=== PATIENT | female | born 1940 | race American Indian/Alaskan Native ===

== ENCOUNTER 2020-08-18 12:28 | Inpatient (IN) | payer MEDICARE ==
[2020-08-18] MEDS ORDERED: SODIUM CHLORIDE 0.9% 1000 ML 1,000 ML IV ONE (13:42)
[2020-08-18] MEDS ORDERED: dexAMETHasone 20 MG/5 ML VIAL IV ONE (14:02)
[2020-08-18] MEDS ORDERED: VANCOMYCIN 1,000 MG in SODIUM CHLORIDE 0.9% 500 ML 500 ML IV ONE (14:19)
[2020-08-18] MEDS ORDERED: LACTATED RINGERS 1000 ML IV SOLN IV STA (14:19)
[2020-08-18] MEDS ORDERED: CEFEPIME/NS 2 GM/100 ML 2 GM/100 ML BAG IV ONE (14:19)
--- NOTE | 2020-08-18 14:26 | Emergency Department Report ---
<SHELL SYKES - Last Filed: 08/18/20 15:34> ED Altered Mental Status HPI - General Chief Complaint: Weakness Stated Complaint: AMS PUI?: Yes Time Seen by Provider: 08/18/20 13:42 Source: EMS, old records reviewed Mode of arrival: Stretcher Limitations: Physical Limitation - History of Present Illness Initial Comments: Chief complaint: Lethargy altered mental status HPI: This is an 80-year-old female with history of hypopituitarism, diabetes mellitus, cerebral atherosclerosis, hypertension, benign neoplasm of meninges, hypothyroidism, primary adrenal cortical insufficiency, hyperlipidemia, oste oarthritis, unspecified altered mental status, recent COVID-19 infection diagnosed 08/05/2020 who presents with lethargy weakness since this morning from SNF. Patient has had decreased appetite. Poor p.o. intake over the last 3 days.. Due to altered mental status, patient unable to give history. Patient had EMS oxygen saturation 97%. Blood pressure according to EMS systolic 110. Normotensive blood pressure according to EMS. I spoke with sister Beka Dos Santos. Patient was discharged from [facility] on 08/05/2020. She has lived with sister for past 5 years. She was discharged to SNF just on August 05, 2020. Patient normally speaks. She was independent. She was able to walk with cane prior to most recent illness. 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 Patient is a [employer]. Complaint: altered mental status, decreased responsiveness -: This morning Severity: severe Consistency of Symptoms: constant Context: other (Recent diagnosis COVID-19 infection) - Related Data Allergies Allergy/AdvReac Type Severity Reaction Status Date / Time No Known Allergies Allergy Unverified 08/18/20 14:45 ED Review of Systems Comment: Unobtainable due to pts medical conditions (Limited due to altered mental status) ED Past Medical Hx - Past Medical History Previous Medical History?: Yes Hx Hypertension: Yes Hx Diabetes: Yes ED Physical Exam - General Limitations: Physical Limitation General appearance: lethargic, other (Minimal responsiveness to noxious stimuli) - Head Head exam: Present: atraumatic, normocephalic - ENT ENT exam: Present: mucous membranes dry - Neck Neck exam: Present: normal inspection, other (Patient's head slumped to the right) - Respiratory Respiratory exam: Present: respiratory distress, rales, rhonchi, decreased breath sounds, other (Increased work of breathing, increased respiratory rate). Absent: wheezes - Cardiovascular Cardiovascular Exam: Present: regular rate, normal rhythm. Absent: systolic murmur, diastolic murmur, rubs, gallop - GI/Abdominal GI/Abdominal exam: Present: soft, normal bowel sounds. Absent: distended, tenderness, guarding, rebound - Extremities Exam Extremities exam: Present: normal inspection - Neurological Exam Neurological exam: Present: altered, oriented X3 - Psychiatric Psychiatric exam: Present: flat affect - Skin Skin exam: Present: warm, dry, intact, normal color. Absent: rash - Central Line Placement Left IJ Consent Obtained: verbal consent (Verbal consent from sister Beka Dos Santos over the phone) Prep: mask, gown, gloves, other (cap drape) Central Line Prep: Chlorhexidine scrub Local Anesthesia Used: Lidocaine 1% Ultrasound Used for Placement: Yes Central Line Lumen Inserted: triple Bloods Obtained for Lab: Yes Central Line Position: good blood return, sutured in place with nyl Dressing Applied: Tegaderm, other (biopatch) Post Procedure X-Ray: tip of catheter in good p Patient Tolerated Procedure: well Complications: none - Medical Decision Making Altered mental status: Patient arrives with lethargy but intact gag reflex. She will moan. She coughs frequently. I suspect acute toxic metabolic encephalopathy due to recent COVID-19 infection. Possible sepsis. Upon presentation patient had persistent hypotension. I placed left internal jugular vein central venous catheter. Sepsis protocol initiated. Critical Care Time: Yes Critical care time in (mins) excluding proc time.: 40 Critical care attestation.: 40 minutes of critical care time excluding procedures were used in the care of the patient. I came immediately to the bedside upon patient's arrival. I obtained history from EMS at the bedside. I discussed treatment plan with the nursing team members. I reviewed documentation provided by alf facility. I was concerned for septic shock. Patient required multiple interventions and reassessments. ED Disposition Clinical Impression: Sepsis, Acute encephalopathy, History of adrenal insufficiency, History of 2019 novel coronavirus disease (COVID-19), Renal insufficiency, UTI (urinary tract infection) Disposition: 09 OP ADMIT IP TO THIS HOSP Condition: Stable <GUILLERMO PANDYA - Last Filed: 08/18/20 18:15> ED Review of Systems ROS: Stated complaint: AMS Other details as noted in HPI ED Course Vital Signs 08/18/20 08/18/20 08/18/20 13:00 13:15 13:45 Temperature 99.1 F Pulse Rate 119 H Respiratory 25 H Rate Blood Pressure Blood Pressure 91/46 85/50 91/46 [Right] O2 Sat by Pulse Oximetry 08/18/20 08/18/20 08/18/20 14:00 16:07 16:15 Temperature Pulse Rate 119 H 111 H 101 H Respiratory 16 32 H 21 Rate Blood Pressure 77/33 77/43 Blood Pressure 85/50 71/37 [Right] O2 Sat by Pulse 100 100 Oximetry 08/18/20 08/18/20 08/18/20 16:20 16:30 16:31 Temperature Pulse Rate 107 H 102 H 102 H Respiratory 20 29 H Rate Blood Pressure 108/61 Blood Pressure 71/37 108/61 [Right] O2 Sat by Pulse 99 98 Oximetry 08/18/20 08/18/20 08/18/20 16:45 17:05 17:15 Temperature Pulse Rate 94 H Respiratory 26 H Rate Blood Pressure 95/50 71/37 109/53 Blood Pressure 95/50 [Right] O2 Sat by Pulse 99 100 100 Oximetry - Reevaluation(s) Reevaluation #1: 08/18/20 16:42 BP 108/61 with IV fluid resuscitation. Patient required vasopressin at this time. Montalvo catheter placed with positive urine output. - Consultations Consultation #1: 08/18/20 17:58 Nephrology consult ordered 08/18/20 18:14 Case was discussed with Dr. Masters ICU attending on-call who recommends hydrocortisone 100 mg every 8 for stress dose steroids. Order placed - Lab Data Result diagrams: 08/18/20 Unknown 08/18/20 15:35 Lab Results 08/18/20 08/18/20 08/18/20 Range/Units 15:35 15:35 15:35 WBC (4.5-11.0) K/mm3 RBC (3.65-5.03) M/mm3 Hgb (10.1-14.3) gm/dl Hct (30.3-42.9) % MCV (79-97) fl MCH (28-32) pg MCHC (30-34) % RDW (13.2-15.2) % Plt Count (140-440) K/mm3 Add Manual Diff Total Counted Seg Neuts % (Manual) (40.0-70.0) % Lymphocytes % (Manual) (13.4-35.0) % Monocytes % (Manual) (0.0-7.3) % Nucleated RBC % Seg Neutrophils # Man (1.8-7.7) K/mm3 Band Neutrophils # K/mm3 Lymphocytes # (Manual) (1.2-5.4) K/mm3 Abs React Lymphs (Man) K/mm3 Monocytes # (Manual) (0.0-0.8) K/mm3 Eosinophils # (Manual) (0.0-0.4) K/mm3 Basophils # (Manual) (0.0-0.1) K/mm3 Metamyelocytes # K/mm3 Myelocytes # K/mm3 Promyelocytes # K/mm3 Blast Cells # K/mm3 WBC Morphology Hypersegmented Neuts Hyposegmented Neuts Hypogranular Neuts Smudge Cells Toxic Granulation Toxic Vacuolation Dohle Bodies Pelger-Huet Anomaly Marie Rods Platelet Estimate Clumped Platelets Plt Clumps, EDTA Large Platelets Giant Platelets Platelet Satelliting Plt Morphology Comment RBC Morphology Dimorphic RBCs Polychromasia Hypochromasia Poikilocytosis Anisocytosis Microcytosis Macrocytosis Spherocytes Pappenheimer Bodies Sickle Cells Target Cells Tear Drop Cells Ovalocytes Helmet Cells [place] Bodies Beatrice Rings Darren Cells Bite Cells Crenated Cell Elliptocytes Acanthocytes (Spur) Rouleaux Hemoglobin C Crystals Schistocytes Malaria parasites Payam Bodies Hem Pathologist Commnt D-Dimer (0-234) ng/mlDDU Sodium 146 H (137-145) mmol/L Potassium 4.9 (3.6-5.0) mmol/L Chloride 106.7 (98-107) mmol/L Carbon Dioxide 21 L (22-30) mmol/L Anion Gap 23 mmol/L BUN 55 H (7-17) mg/dL Creatinine 3.5 H (0.6-1.2) mg/dL Estimated GFR 15 ml/min BUN/Creatinine Ratio 16 % Glucose 154 H (65-100) mg/dL Lactic Acid 2.30 H* (0.7-2.0) mmol/L Calcium 8.4 (8.4-10.2) mg/dL Ferritin (10.0-200.0) ng/mL Total Bilirubin 1.10 (0.1-1.2) mg/dL AST 38 (5-40) units/L ALT 11 (7-56) units/L Alkaline Phosphatase 57 (35-129) units/L Ammonia 17.0 L (25-60) umol/L Lactate Dehydrogenase (91-180) units/L Troponin T 0.078 H (0.00-0.029) ng/mL C-Reactive Protein (0.00-1.30) mg/dL Total Protein 6.2 L (6.3-8.2) g/dL Albumin 2.1 L (3.9-5) g/dL Albumin/Globulin Ratio 0.5 % TSH (0.270-4.200) mlU/mL Urine Color (Yellow) Urine Turbidity (Clear) Urine pH (5.0-7.0) Ur Specific [place] (1.003-1.030) Urine Protein (Negative) mg/dL Urine Glucose (UA) (Negative) mg/dL Urine Ketones (Negative) mg/dL Urine Blood (Negative) Urine Nitrite (Negative) Urine Bilirubin (Negative) Urine Urobilinogen (<2.0) mg/dL Ur Leukocyte Esterase (Negative) Urine WBC (Auto) (0.0-6.0) /HPF Urine RBC (Auto) (0.0-6.0) /HPF U Epithel Cells (Auto) (0-13.0) /HPF Urine Mucus /HPF 08/18/20 08/18/20 08/18/20 Range/Units 15:35 15:35 15:35 WBC (4.5-11.0) K/mm3 RBC (3.65-5.03) M/mm3 Hgb (10.1-14.3) gm/dl Hct (30.3-42.9) % MCV (79-97) fl MCH (28-32) pg MCHC (30-34) % RDW (13.2-15.2) % Plt Count (140-440) K/mm3 Add Manual Diff Total Counted Seg Neuts % (Manual) (40.0-70.0) % Lymphocytes % (Manual) (13.4-35.0) % Monocytes % (Manual) (0.0-7.3) % Nucleated RBC % Seg Neutrophils # Man (1.8-7.7) K/mm3 Band Neutrophils # K/mm3 Lymphocytes # (Manual) (1.2-5.4) K/mm3 Abs React Lymphs (Man) K/mm3 Monocytes # (Manual) (0.0-0.8) K/mm3 Eosinophils # (Manual) (0.0-0.4) K/mm3 Basophils # (Manual) (0.0-0.1) K/mm3 Metamyelocytes # K/mm3 Myelocytes # K/mm3 Promyelocytes # K/mm3 Blast Cells # K/mm3 WBC Morphology Hypersegmented Neuts Hyposegmented Neuts Hypogranular Neuts Smudge Cells Toxic Granulation Toxic Vacuolation Dohle Bodies Pelger-Huet Anomaly Marie Rods Platelet Estimate Clumped Platelets Plt Clumps, EDTA Large Platelets Giant Platelets Platelet Satelliting Plt Morphology Comment RBC Morphology Dimorphic RBCs Polychromasia Hypochromasia Poikilocytosis Anisocytosis Microcytosis Macrocytosis Spherocytes Pappenheimer Bodies Sickle Cells Target Cells Tear Drop Cells Ovalocytes Helmet Cells [place] Bodies Beatrice Rings Darren Cells Bite Cells Crenated Cell Elliptocytes Acanthocytes (Spur) Rouleaux Hemoglobin C Crystals Schistocytes Malaria parasites Payam Bodies Hem Pathologist Commnt D-Dimer (0-234) ng/mlDDU Sodium (137-145) mmol/L Potassium (3.6-5.0) mmol/L Chloride (98-107) mmol/L Carbon Dioxide (22-30) mmol/L Anion Gap mmol/L BUN (7-17) mg/dL Creatinine (0.6-1.2) mg/dL Estimated GFR ml/min BUN/Creatinine Ratio % Glucose 152 H (65-100) mg/dL Lactic Acid (0.7-2.0) mmol/L Calcium (8.4-10.2) mg/dL Ferritin 1950.0 H (10.0-200.0) ng/mL Total Bilirubin (0.1-1.2) mg/dL AST (5-40) units/L ALT (7-56) units/L Alkaline Phosphatase (35-129) units/L Ammonia (25-60) umol/L Lactate Dehydrogenase 228 H (91-180) units/L Troponin T (0.00-0.029) ng/mL C-Reactive Protein 35.60 H (0.00-1.30) mg/dL Total Protein (6.3-8.2) g/dL Albumin (3.9-5) g/dL Albumin/Globulin Ratio % TSH 0.744 (0.270-4.200) mlU/mL Urine Color (Yellow) Urine Turbidity (Clear) Urine pH (5.0-7.0) Ur Specific [place] (1.003-1.030) Urine Protein (Negative) mg/dL Urine Glucose (UA) (Negative) mg/dL Urine Ketones (Negative) mg/dL Urine Blood (Negative) Urine Nitrite (Negative) Urine Bilirubin (Negative) Urine Urobilinogen (<2.0) mg/dL Ur Leukocyte Esterase (Negative) Urine WBC (Auto) (0.0-6.0) /HPF Urine RBC (Auto) (0.0-6.0) /HPF U Epithel Cells (Auto) (0-13.0) /HPF Urine Mucus /HPF 08/18/20 08/18/20 08/18/20 Range/Units Unknown Unknown Unknown WBC 20.3 H (4.5-11.0) K/mm3 RBC 3.40 L (3.65-5.03) M/mm3 Hgb 9.8 L (10.1-14.3) gm/dl Hct 29.0 L (30.3-42.9) % MCV 85 (79-97) fl MCH 29 (28-32) pg MCHC 34 (30-34) % RDW 15.8 H (13.2-15.2) % Plt Count 370 (140-440) K/mm3 Add Manual Diff Complete Total Counted 100 Seg Neuts % (Manual) 93.0 H (40.0-70.0) % Lymphocytes % (Manual) 2.0 L (13.4-35.0) % Monocytes % (Manual) 5.0 (0.0-7.3) % Nucleated RBC % Not Reportable Seg Neutrophils # Man 18.9 H (1.8-7.7) K/mm3 Band Neutrophils # 0.0 K/mm3 Lymphocytes # (Manual) 0.4 L (1.2-5.4) K/mm3 Abs React Lymphs (Man) 0.0 K/mm3 Monocytes # (Manual) 1.0 H (0.0-0.8) K/mm3 Eosinophils # (Manual) 0.0 (0.0-0.4) K/mm3 Basophils # (Manual) 0.0 (0.0-0.1) K/mm3 Metamyelocytes # 0.0 K/mm3 Myelocytes # 0.0 K/mm3 Promyelocytes # 0.0 K/mm3 Blast Cells # 0.0 K/mm3 WBC Morphology Not Reportable Hypersegmented Neuts Not Reportable Hyposegmented Neuts Not Reportable Hypogranular Neuts Not Reportable Smudge Cells Not Reportable Toxic Granulation Not Reportable Toxic Vacuolation Not Reportable Dohle Bodies Not Reportable Pelger-Huet Anomaly Not Reportable Marie Rods Not Reportable Platelet Estimate Consistent w auto Clumped Platelets Not Reportable Plt Clumps, EDTA Not Reportable Large Platelets Not Reportable Giant Platelets Not Reportable Platelet Satelliting Not Reportable Plt Morphology Comment Not Reportable RBC Morphology Not Reportable Dimorphic RBCs Not Reportable Polychromasia Not Reportable Hypochromasia Not Reportable Poikilocytosis 1+ Anisocytosis 1+ Microcytosis Not Reportable Macrocytosis Not Reportable Spherocytes Not Reportable Pappenheimer Bodies Not Reportable Sickle Cells Not Reportable Target Cells Not Reportable Tear Drop Cells Not Reportable Ovalocytes Not Reportable Helmet Cells Not Reportable [place] Bodies Not Reportable Beatrice Rings Not Reportable [place] Cells 1+ Bite Cells Not Reportable Crenated Cell Not Reportable Elliptocytes Not Reportable Acanthocytes (Spur) Not Reportable Rouleaux Not Reportable Hemoglobin C Crystals Not Reportable Schistocytes Not Reportable Malaria parasites Not Reportable Payam Bodies Not Reportable Hem Pathologist Commnt No D-Dimer 2409.74 H (0-234) ng/mlDDU Sodium (137-145) mmol/L Potassium (3.6-5.0) mmol/L Chloride (98-107) mmol/L Carbon Dioxide (22-30) mmol/L Anion Gap mmol/L BUN (7-17) mg/dL Creatinine (0.6-1.2) mg/dL Estimated GFR ml/min BUN/Creatinine Ratio % Glucose (65-100) mg/dL Lactic Acid (0.7-2.0) mmol/L Calcium (8.4-10.2) mg/dL Ferritin (10.0-200.0) ng/mL Total Bilirubin (0.1-1.2) mg/dL AST (5-40) units/L ALT (7-56) units/L Alkaline Phosphatase (35-129) units/L Ammonia (25-60) umol/L Lactate Dehydrogenase (91-180) units/L Troponin T (0.00-0.029) ng/mL C-Reactive Protein (0.00-1.30) mg/dL Total Protein (6.3-8.2) g/dL Albumin (3.9-5) g/dL Albumin/Globulin Ratio % TSH (0.270-4.200) mlU/mL Urine Color Jacqueline (Yellow) Urine Turbidity Hazy (Clear) Urine pH 5.0 (5.0-7.0) Ur Specific [place] 1.020 (1.003-1.030) Urine Protein 30 mg/dl (Negative) mg/dL Urine Glucose (UA) 50 (Negative) mg/dL Urine Ketones Neg (Negative) mg/dL Urine Blood Neg (Negative) Urine Nitrite Neg (Negative) Urine Bilirubin Neg (Negative) Urine Urobilinogen 4.0 (<2.0) mg/dL Ur Leukocyte Esterase Tr (Negative) Urine WBC (Auto) 41.0 H (0.0-6.0) /HPF Urine RBC (Auto) 4.0 (0.0-6.0) /HPF U Epithel Cells (Auto) 1.0 (0-13.0) /HPF Urine Mucus 3+ /HPF - EKG Data -: EKG Interpreted by De EKG shows normal: sinus rhythm, ST-T waves (No STEMI) Rate: normal - Radiology Data Radiology results: report reviewed (cxr: naf) ct had: naf cxr: naf - Medical Decision Making Patient with a leukocytosis, alteration mental status, negative chest x-ray, and CT head. Patient treated as per sepsis protocol with broad-spectrum antibiotic coverage (cefepime and Vanco). Positive renal insufficiency without previous creatinine for comparison. Urine output noted after Montalvo placement. Patient blood pressure responded to IV fluids with a MAP greater than 65 at time of disposition however, patient does have a central line for vasopressors as needed. Patient currently respiratory isolation of the recent positive Covid test and admission earlier this month. Patient has renal insufficiency without previous available for comparison. Elevated D-dimer noted, patient not a candidate for CT angio at this time given renal function. Mild troponin elevation noted likely secondary to renal insufficiency. Repeat pending. EKG normal sinus without signs of acute ischemia. MN aspirin ordered after receiving negative CT head report. hospitalist informed for admission Hydrocortisone 100 mg every 8 ordered as per orders ICU attendings request, nephrology consult ordered. urine results positive for UTI with cultures pending Critical care attestation.: If time is entered above; I have spent that time in minutes in the direct care of this critically ill patient, excluding procedure time. ED Disposition Is pt being admited?: Yes Time of Disposition: 17:54 (Dr Mata/hospitalist)
[2020-08-18] MEDS ORDERED: SODIUM CHLORIDE 0.9% 500 ML 500 ML ONE (14:48)
[2020-08-18] MEDS ORDERED: SODIUM CHLORIDE 0.9% 1000 ML 2,000 ML ONE (14:48)
[2020-08-18] MEDS ORDERED: SODIUM CHLORIDE 0.9% 1000 ML IV SOLN IV ONE (14:53)
[2020-08-18] MEDS ORDERED: VANCOMYCIN 1,250 MG in SODIUM CHLORIDE 0.9% 250ML 250 ML IV ONE (15:00)
[2020-08-18] MEDS ORDERED: VANCOMYCIN PHARMACY TO DOSE IV SCH (15:00)
--- NOTE | 2020-08-18 16:11 | XRay Report ---
CHEST 1 VIEW 08/18/2020 3:06 PM INDICATION / CLINICAL INFORMATION: Altered Mental Status. COMPARISON: None available. FINDINGS: SUPPORT DEVICES: None. HEART / MEDIASTINUM: No significant abnormality. LUNGS / PLEURA: No significant pulmonary or pleural abnormality. No pneumothorax. ADDITIONAL FINDINGS: No significant additional findings. IMPRESSION: 1. No acute findings. Signer Name: Ramu Vegas MD Signed: 08/18/2020 4:07 PM Workstation Name: [id number]
[2020-08-18 16:13] LABS: Hemoglobin 9.8 gm/dl (10.1-14.3); Mean Corpuscular HGB Conc 34 % (30-34); Mean Corpuscular Volume 85 fl (79-97); Platelet Count 370 K/mm3 (140-440); Red Cell Distribution Width 15.8 % (13.2-15.2)
[2020-08-18 16:31] LABS: Albumin 2.1 g/dL (3.9-5); Calcium 8.4 mg/dL (8.4-10.2)
[2020-08-18 16:57] LABS: Total Cells Counted 100
[2020-08-18 16:58] LABS: Anisocytosis 1+; Burr Cells 1+; Platelet Estimate Consistent w Auto; Poikilocytosis 1+
[2020-08-18 17:02] LABS: C-Reactive Protein 35.6 mg/dL (0.00-1.30)
--- NOTE | 2020-08-18 17:35 | Cat Scan Report ---
CT head/brain wo con INDICATION / CLINICAL INFORMATION: 80 years Female; Altered Mental Status. TECHNIQUE: Routine CT head without contrast. All CT scans at this location are performed using CT dos e reduction for ALARA by means of automated exposure control. COMPARISON: None. FINDINGS: BRAIN / INTRACRANIAL CONTENTS: No acute hemorrhage, mass effect, midline shift, hydrocephalus, or acu te, large territorial infarct. Mild to moderate cerebral and cerebellar atrophy. Moderate to marked degree of hippocampal atrophy brock ggested bilaterally. There are [id number] areas of decreased attenuation in the white matter of the cerebral hemisph eres. These are nonspecific findings and may be related to microangiopathy (hypertension, diabetes, a therosclerosis), given the patient's age. It might be difficult to evaluate for small areas of ischem ia without diffusion imaging by MRI. Fairly extensive dural calcification seen. CRANIOCERVICAL JUNCTION: No significant abnormality. ORBITS: No significant abnormality of visualized orbits. SINUSES / MASTOIDS: No significant abnormality in the visualized paranasal sinuses or mastoid air ulices ls. ADDITIONAL FINDINGS: Atherosclerotic disease is seen in the anterior circulation. IMPRESSION: 1. No focal mass, hemorrhage, hydrocephalus, or acute, large territorial infarct. Follow-up with diff usion imaging by MRI, as clinically warranted. Signer Name: Lele Soliman MD, III Signed: 08/18/2020 5:31 PM Workstation Name: [id number]
[2020-08-18] MEDS ORDERED: ASPIRIN 300 MG RECT SUPP PR ONE (17:59)
[2020-08-18 18:05] LABS: Bilirubin,Urine NEG (Negative); Blood,Urine NEG (Negative); Color,Urine Amber (Yellow); Mucus,Urine 3+ /HPF
[2020-08-18 19:24] LABS: Chol/HDL Ratio 3.43 %
[2020-08-18] MEDS ORDERED: HYDROCORTISONE SOD SUCC 100 MG/2 ML VIAL IV SCH (22:00)
--- NOTE | 2020-08-19 02:16 | History and Physical Report ---
History of Present Illness Date of examination: 08/18/20 Date of admission: 08/18/20 17:55 Chief complaint: Altered mental status since a.m. 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 Patient had Covid on 08/05/2020 and was treated. Patient has been lethargic and weak since this morning patient lives in the [facility]. Patient has decreased appetite and poor p.o. intake for the last 3 days. Patient unable to give history. Oxygen saturation was 97%. Blood pressure was 110 as per the EMS. Patient was apparently discharged from [facility] on 08/05/2020 after being treated for Covid. Patient was transferred to custodial facility. For physical therapy and increasing strength secondary to debility. Telemetry was independent. She was able to walk with a cane prior to the recent illness which necessitated admission to [facility]. 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 Past History Past Medical History: diabetes, hyperthyroidism, other (Pituitary insufficiency, secondary renal insufficiency) Past Surgical History: No surgical history Social history: full code, other (Lives in custodial facility) Family history: hypertension Medications and Allergies Allergies Allergy/AdvReac Type Severity Reaction Status Date / Time No Known Allergies Allergy Unverified 08/18/20 14:45 Home Medications Medication Instructions Recorded Confirmed Last Taken Type Amlodipine Besylate [Norvasc] 5 mg PO DAILY 08/18/20 08/18/20 Unknown History AtorvaSTATin [Lipitor] 20 mg PO QHS 08/18/20 08/18/20 Unknown History Cholecalciferol (Vitamin D3) 2,000 unit PO QDAY 08/18/20 08/18/20 Unknown History [Vitamin D3 2,000 UNIT CAP] Cyanocobalamin [Vitamin B-12] 1,000 mcg PO DAILY 08/18/20 08/18/20 Unknown History Folic Acid 1 mg PO QDAY 08/18/20 08/18/20 Unknown History Hydrocortisone 5 mg PO QHS 08/18/20 08/18/20 Unknown History Hydrocortisone 10 mg PO QAM 08/18/20 08/18/20 Unknown History Levothyroxine [Synthroid] 50 mcg PO QAM 08/18/20 08/18/20 Unknown History Ramipril 10 mg PO DAILY 08/18/20 08/18/20 Unknown History levETIRAcetam [Keppra TAB] 750 mg PO BID 08/18/20 08/18/20 Unknown History Active Meds: Active Medications Hydrocortisone Sodium Succinate (Hydrocortisone Sod Succ 100 Mg/2 Ml Vial) 100 mg IV Q8HR BARBARA Review of Systems All systems: negative Constitutional: anorexia, fatigue, weakness, malaise, lethargy, poor appetite Ears, nose, mouth and throat: deferred Cardiovascular: no chest pain, no orthopnea, no palpitations, no rapid/irregular heart beat, no edema, no syncope, no lightheadedness, no shortness of breath Respiratory: no cough, no cough with sputum, no excessive sputum, no hemoptysis, no shortness of breath, no dyspnea on exertion Gastrointestinal: no abdominal pain, no nausea, no vomiting, no diarrhea, no constipation, no change in bowel habits, no hematemesis, no coffee ground emesis Genitourinary Female: no dysuria, no urgency Integumentary: no rash, no pruritis, no redness, no sores Neurological: no parathesias, no numbness, no tingling, no seizures, no syncope Psychiatric: no anxiety, no memory loss, no change in sleep habits, no sleep disturbances, no insomnia, no hypersomnia, no change in appetite Endocrine: no cold intolerance, no heat intolerance, no polyphagia, no excessive thirst Hematologic/Lymphatic: no easy bruising, no easy bleeding Allergic/Immunologic: no urticaria, no allergic rhinitis, no wheezing Exam - Constitutional Vitals: Temp Pulse Resp BP Pulse Ox 99.1 F 64 18 102/39 100 08/18/20 13:00 08/18/20 22:45 08/18/20 22:45 08/18/20 22:45 08/18/20 22:45 General appearance: Present: no acute distress, well-nourished - EENT Eyes: Present: PERRL ENT: hearing intact, clear oral mucosa - Neck Neck: Present: supple, normal ROM - Respiratory Respiratory effort: normal Respiratory: bilateral: CTA - Cardiovascular Heart rate: 78 Rhythm: regular Heart Sounds: Present: S1 & S2. Absent: rub, click - Extremities Extremities: no ischemia, pulses intact, pulses symmetrical, No edema Peripheral Pulses: within normal limits - Abdominal General gastrointestinal: Present: soft, non-tender, non-distended, normal bowel sounds Female genitourinary: Present: normal - Integumentary Integumentary: Present: clear, warm, dry - Musculoskeletal Musculoskeletal: gait normal, strength equal bilaterally - Psychiatric Psychiatric: appropriate mood/affect, intact judgment & insight - Neurologic Neurologic: CNII-XII intact, moves all extremities - Allied Health Allied health notes reviewed: nursing, case management HEART Score - HEART Score History: Moderately suspicious Troponin: Troponin T 0.075 ng/mL (0.00-0.029) H 08/18/20 18:25 Troponin: 1-3x normal limit - Critical Actions Critical Actions: 4-6 pts:12-16.6% risk of adverse cardiac event. Should be admitted Results - Labs CBC & Chem 7: 08/18/20 Unknown 08/18/20 15:35 Labs: Laboratory Last Values WBC 20.3 K/mm3 (4.5-11.0) H 08/18/20 Unknown RBC 3.40 M/mm3 (3.65-5.03) L 08/18/20 Unknown Hgb 9.8 gm/dl (10.1-14.3) L 08/18/20 Unknown Hct 29.0 % (30.3-42.9) L 08/18/20 Unknown MCV 85 fl (79-97) 08/18/20 Unknown MCH 29 pg (28-32) 08/18/20 Unknown MCHC 34 % (30-34) 08/18/20 Unknown RDW 15.8 % (13.2-15.2) H 08/18/20 Unknown Plt Count 370 K/mm3 (140-440) 08/18/20 Unknown Add Manual Diff Complete 08/18/20 Unknown Total Counted 100 08/18/20 Unknown Seg Neuts % (Manual) 93.0 % (40.0-70.0) H 08/18/20 Unknown Lymphocytes % (Manual) 2.0 % (13.4-35.0) L 08/18/20 Unknown Monocytes % (Manual) 5.0 % (0.0-7.3) 08/18/20 Unknown Nucleated RBC % Not Reportable 08/18/20 Unknown Seg Neutrophils # Man 18.9 K/mm3 (1.8-7.7) H 08/18/20 Unknown Band Neutrophils # 0.0 K/mm3 08/18/20 Unknown Lymphocytes # (Manual) 0.4 K/mm3 (1.2-5.4) L 08/18/20 Unknown Abs React Lymphs (Man) 0.0 K/mm3 08/18/20 Unknown Monocytes # (Manual) 1.0 K/mm3 (0.0-0.8) H 08/18/20 Unknown Eosinophils # (Manual) 0.0 K/mm3 (0.0-0.4) 08/18/20 Unknown Basophils # (Manual) 0.0 K/mm3 (0.0-0.1) 08/18/20 Unknown Metamyelocytes # 0.0 K/mm3 08/18/20 Unknown Myelocytes # 0.0 K/mm3 08/18/20 Unknown Promyelocytes # 0.0 K/mm3 08/18/20 Unknown Blast Cells # 0.0 K/mm3 08/18/20 Unknown WBC Morphology Not Reportable 08/18/20 Unknown Hypersegmented Neuts Not Reportable 08/18/20 Unknown Hyposegmented Neuts Not Reportable 08/18/20 Unknown Hypogranular Neuts Not Reportable 08/18/20 Unknown Smudge Cells Not Reportable 08/18/20 Unknown Toxic Granulation Not Reportable 08/18/20 Unknown Toxic Vacuolation Not Reportable 08/18/20 Unknown Dohle Bodies Not Reportable 08/18/20 Unknown Pelger-Huet Anomaly Not Reportable 08/18/20 Unknown Marie Rods Not Reportable 08/18/20 Unknown Platelet Estimate Consistent w auto 08/18/20 Unknown Clumped Platelets Not Reportable 08/18/20 Unknown Plt Clumps, EDTA Not Reportable 08/18/20 Unknown Large Platelets Not Reportable 08/18/20 Unknown Giant Platelets Not Reportable 08/18/20 Unknown Platelet Satelliting Not Reportable 08/18/20 Unknown Plt Morphology Comment Not Reportable 08/18/20 Unknown RBC Morphology Not Reportable 08/18/20 Unknown Dimorphic RBCs Not Reportable 08/18/20 Unknown Polychromasia Not Reportable 08/18/20 Unknown Hypochromasia Not Reportable 08/18/20 Unknown Poikilocytosis 1+ 08/18/20 Unknown Anisocytosis 1+ 08/18/20 Unknown Microcytosis Not Reportable 08/18/20 Unknown Macrocytosis Not Reportable 08/18/20 Unknown Spherocytes Not Reportable 08/18/20 Unknown Pappenheimer Bodies Not Reportable 08/18/20 Unknown Sickle Cells Not Reportable 08/18/20 Unknown Target Cells Not Reportable 08/18/20 Unknown Tear Drop Cells Not Reportable 08/18/20 Unknown Ovalocytes Not Reportable 08/18/20 Unknown Helmet Cells Not Reportable 08/18/20 Unknown [place] Bodies Not Reportable 08/18/20 Unknown [place] Rings Not Reportable 08/18/20 Unknown [place] Cells 1+ 08/18/20 Unknown Bite Cells Not Reportable 08/18/20 Unknown Crenated Cell Not Reportable 08/18/20 Unknown Elliptocytes Not Reportable 08/18/20 Unknown Acanthocytes (Spur) Not Reportable 08/18/20 Unknown Rouleaux Not Reportable 08/18/20 Unknown Hemoglobin C Crystals Not Reportable 08/18/20 Unknown Schistocytes Not Reportable 08/18/20 Unknown Malaria parasites Not Reportable 08/18/20 Unknown [place]am Bodies Not Reportable 08/18/20 Unknown Hem Pathologist Commnt No 08/18/20 Unknown D-Dimer 2409.74 ng/mlDDU (0-234) H 08/18/20 Unknown Sodium 146 mmol/L (137-145) H 08/18/20 15:35 Potassium 4.9 mmol/L (3.6-5.0) 08/18/20 15:35 Chloride 106.7 mmol/L (98-107) 08/18/20 15:35 Carbon Dioxide 21 mmol/L (22-30) L 08/18/20 15:35 Anion Gap 23 mmol/L 08/18/20 15:35 BUN 55 mg/dL (7-17) H 08/18/20 15:35 Creatinine 3.5 mg/dL (0.6-1.2) H 08/18/20 15:35 Estimated GFR 15 ml/min 08/18/20 15:35 BUN/Creatinine Ratio 16 % 08/18/20 15:35 Glucose 152 mg/dL (65-100) H 08/18/20 15:35 Glucose 154 mg/dL (65-100) H 08/18/20 15:35 Lactic Acid 1.00 mmol/L (0.7-2.0) 08/18/20 18:25 Calcium 8.4 mg/dL (8.4-10.2) 08/18/20 15:35 Ferritin 1950.0 ng/mL (10.0-200.0) H 08/18/20 15:35 Total Bilirubin 1.10 mg/dL (0.1-1.2) 08/18/20 15:35 AST 38 units/L (5-40) 08/18/20 15:35 ALT 11 units/L (7-56) 08/18/20 15:35 Alkaline Phosphatase 57 units/L (35-129) 08/18/20 15:35 Ammonia 17.0 umol/L (25-60) L 08/18/20 15:35 Lactate Dehydrogenase 228 units/L (91-180) H 08/18/20 15:35 Troponin T 0.075 ng/mL (0.00-0.029) H 08/18/20 18:25 C-Reactive Protein 35.60 mg/dL (0.00-1.30) H 08/18/20 15:35 Total Protein 6.2 g/dL (6.3-8.2) L 08/18/20 15:35 Albumin 2.1 g/dL (3.9-5) L 08/18/20 15:35 Albumin/Globulin Ratio 0.5 % 08/18/20 15:35 Triglycerides 60 mg/dL (2-149) 08/18/20 18:25 Cholesterol 79 mg/dL (50-199) 08/18/20 18:25 LDL Cholesterol Direct 42 mg/dL (50-130) L 08/18/20 18:25 HDL Cholesterol 23 mg/dL (40-59) L 08/18/20 18:25 Cholesterol/HDL Ratio 3.43 % 08/18/20 18:25 TSH 0.744 mlU/mL (0.270-4.200) 08/18/20 15:35 Urine Color Jacqueline (Yellow) 08/18/20 Unknown Urine Turbidity Hazy (Clear) 08/18/20 Unknown Urine pH 5.0 (5.0-7.0) 08/18/20 Unknown Ur Specific [place] 1.020 (1.003-1.030) 08/18/20 Unknown Urine Protein 30 mg/dl mg/dL (Negative) 08/18/20 Unknown Urine Glucose (UA) 50 mg/dL (Negative) 08/18/20 Unknown Urine Ketones Neg mg/dL (Negative) 08/18/20 Unknown Urine Blood Neg (Negative) 08/18/20 Unknown Urine Nitrite Neg (Negative) 08/18/20 Unknown Urine Bilirubin Neg (Negative) 08/18/20 Unknown Urine Urobilinogen 4.0 mg/dL (<2.0) 08/18/20 Unknown Ur Leukocyte Esterase Tr (Negative) 08/18/20 Unknown Urine WBC (Auto) 41.0 /HPF (0.0-6.0) H 08/18/20 Unknown Urine RBC (Auto) 4.0 /HPF (0.0-6.0) 08/18/20 Unknown U Epithel Cells (Auto) 1.0 /HPF (0-13.0) 08/18/20 Unknown Urine Mucus 3+ /HPF 08/18/20 Unknown Short CBC 08/18/20 Range/Units Unknown WBC 20.3 H (4.5-11.0) K/mm3 Hgb 9.8 L (10.1-14.3) gm/dl Hct 29.0 L (30.3-42.9) % Plt Count 370 (140-440) K/mm3 BMP 08/18/20 08/18/20 15:35 15:35 Sodium 146 H Potassium 4.9 Chloride 106.7 Carbon Dioxide 21 L BUN 55 H Creatinine 3.5 H Glucose 154 H 152 H Calcium 8.4 Cardiac Enzymes 08/18/20 08/18/20 Range/Units 15:35 18:25 Troponin T 0.078 H 0.075 H (0.00-0.029) ng/mL Liver Function 08/18/20 Range/Units 15:35 Total Bilirubin 1.10 (0.1-1.2) mg/dL AST 38 (5-40) units/L ALT 11 (7-56) units/L Alkaline Phosphatase 57 (35-129) units/L Albumin 2.1 L (3.9-5) g/dL Urine 08/18/20 Range/Units Unknown Urine Color Jacqueline (Yellow) Urine pH 5.0 (5.0-7.0) Ur Specific [place] 1.020 (1.003-1.030) Urine Protein 30 mg/dl (Negative) mg/dL Urine Glucose (UA) 50 (Negative) mg/dL Microbiology: Microbiology 08/18/20 Unknown Peripheral/Venous Blood Culture - Preliminary Culture in Progress 08/18/20 Unknown Peripheral/Venous Blood Culture - Preliminary Culture in Progress - Imaging and Cardiology EKG: report reviewed Chest x-ray: report reviewed CT Scan - head: report reviewed Assessment and Plan Advance Directives: Yes (Full code) VTE prophylaxis?: Chemical (Full code) Plan of care discussed with patient/family: Yes - Patient Problems (1) Acute metabolic encephalopathy Current Visit: Yes Status: Acute Plan to address problem: Secondary to sepsis and renal insufficiency (2) Adrenal insufficiency Current Visit: Yes Status: Acute Plan to address problem: On hydrocortisone 10 mg in the morning and 5 mg in the evening If necessary Solu-Medrol to be used We will consult employee relations assistant Dr. Masters (3) Sepsis Current Visit: Yes Status: Acute Plan to address problem: Patient initiated on cefepime and vancomycin Also hypotensive to start with IV fluids for now (4) History of 2019 novel coronavirus disease (COVID-19) Current Visit: Yes Status: Acute Plan to address problem: Coronavirus PCR ordered Unlikely Patient in isolation till then (5) History of adrenal insufficiency Current Visit: Yes Status: Acute (6) UTI (urinary tract infection) Current Visit: Yes Status: Acute Qualifiers: Urinary tract infection type: acute cystitis Plan to address problem: Patient initiated on IV antibiotics pending urine cultures (7) Elevated troponin Current Visit: Yes Status: Acute Plan to address problem: Probably secondary to elevated creatinine Baseline creatinine not known (8) PAWAN (acute kidney injury) Current Visit: Yes Status: Acute Plan to address problem: IV fluids for now Nephrology consult requested Possible underlying CKD (9) DVT prophylaxis Current Visit: Yes Status: Acute Plan to address problem: On Lovenox and GI prophylaxis
[2020-08-19] MEDS ORDERED: NON-FORMULARY EACH (Levetiracetam [Keppra Tab] 750 MG Tablet) PO SCH (02:30)
[2020-08-19] MEDS ORDERED: LEVOTHYROXINE 50 MCG TAB PO SCH (06:00)
[2020-08-19] MEDS: levETIRAcetam 500 MG/5 ML ORAL LIQD PO SCH (06:38)
[2020-08-19] MEDS ORDERED: LEVOTHYROXINE 100 MCG TAB ONE (10:02)
--- NOTE | 2020-08-19 10:30 | Consultation ---
History of Present Illness - Reason for Consult Consult date: 08/19/20 - History of Present Illness 80 year old F who has been admitted to the [facility] with lethargy, dec appetite and poor po intake. Pt has recently had covid. Her Cr has been found to be high. ROS: Unable to obtain due to lethargy Medications and Allergies Allergies Allergy/AdvReac Type Severity Reaction Status Date / Time No Known Allergies Allergy Unverified 08/18/20 14:45 Home Medications Medication Instructions Recorded Confirmed Last Taken Type Amlodipine Besylate [Norvasc] 5 mg PO DAILY 08/18/20 08/18/20 Unknown History AtorvaSTATin [Lipitor] 20 mg PO QHS 08/18/20 08/18/20 Unknown History Cholecalciferol (Vitamin D3) 2,000 unit PO QDAY 08/18/20 08/18/20 Unknown History [Vitamin D3 2,000 UNIT CAP] Cyanocobalamin [Vitamin B-12] 1,000 mcg PO DAILY 08/18/20 08/18/20 Unknown History Folic Acid 1 mg PO QDAY 08/18/20 08/18/20 Unknown History Hydrocortisone 5 mg PO QHS 08/18/20 08/18/20 Unknown History Hydrocortisone 10 mg PO QAM 08/18/20 08/18/20 Unknown History Levothyroxine [Synthroid] 50 mcg PO QAM 08/18/20 08/18/20 Unknown History Ramipril 10 mg PO DAILY 08/18/20 08/18/20 Unknown History levETIRAcetam [Keppra TAB] 750 mg PO BID 08/18/20 08/18/20 Unknown History Active Meds: Active Medications Hydrocortisone Acetate (Hydrocortisone 10 Mg Tab) 10 mg PO QAM [facility] Hydrocortisone Acetate (Hydrocortisone 10 Mg Tab) 5 mg PO QHS [facility] Levetiracetam (Levetiracetam 500 Mg/5 Ml Oral Liqd) 750 mg PO BID [facility] Last Admin: 08/19/20 06:38 Dose: Not Given Documented by: Levothyroxine Sodium (Levothyroxine 50 Mcg Tab) 50 mcg PO QAM@0600 [facility] Exam - Vital Signs Vital signs: Vital Signs Temp BP 99.1 F 91/46 08/18/20 13:00 08/18/20 13:00 - Physical Exam Narrative exam: - EENT Eyes: Present: PERRL ENT: hearing intact, clear oral mucosa - Neck Neck: Present: supple, normal ROM - Respiratory Respiratory effort: normal Respiratory: bilateral: CTA - Cardiovascular Rhythm: regular Heart Sounds: Present: S1 & S2. Absent: rub, click - Extremities Extremities: no ischemia, pulses intact, pulses symmetrical, No edema Peripheral Pulses: within normal limits - Abdominal General gastrointestinal: Present: soft, non-tender, non-distended, normal bowel sounds Female genitourinary: Present: normal - Integumentary Integumentary: Present: clear, warm, dry - Musculoskeletal Musculoskeletal: gait normal, strength equal bilaterally - Psychiatric Psychiatric: awake - Neurologic Neurologic: CNII-XII intact, moves all extremities - Allied Health Allied health notes reviewed: nursing, case management Results - Lab Results 08/18/20 Unknown 08/19/20 12:53 Most recent lab results Calcium 8.4 mg/dL (8.4-10.2) 08/18/20 15:35 Assessment and Plan Acute Kidney injury possibly pre-renal/ATN: Altered Mental status: Adrenal insufficiency: Hypernatremia: Sepsis: Hx of Covid 19 Virus: UTI: -Continue IVFs -Renally dose all meds -Avoid Nephrotoxic meds -Check Urine studies, CK level, Renal US Ky Younger MD [phone]
[2020-08-19 14:03] LABS: Calcium 9.3 mg/dL (8.4-10.2)
--- NOTE | 2020-08-19 15:19 | Consultation ---
History of Present Illness Consult date: 08/19/20 Consult reason: elevated troponin History of present illness: The patient is an 80-year-old woman with advanced dementia who lives in a skilled nursing. She was brought to the hospital for altered mental status, lethargy, and complaints of not eating for 3 days. She was also reported to have been diagnosed with Covid infection 2 weeks ago. On presentation to the emergency room, her white count was markedly elevated at 20,000, there was a low-grade fever of 99.1, there was dehydration and renal insufficiency with a sodium of 146, BUN 55 and creatinine of 3.5. In this milieu, the troponin was 0.07, unchanged on serial measurements. Cardiology consultation was requested for the mild isolated rise in troponin. EKG is normal sinus rhythm with nonspecific T wave changes, no acute ischemia or infarction. Chest x-ray shows an unfolded aorta, normal-sized cardiac silhouette, clear lungs. Past History Past Medical History: diabetes, hyperthyroidism, other (Pituitary insufficiency, secondary renal insufficiency) Past Surgical History: No surgical history Social history: full code, other (Lives in correction facility) Family history: hypertension Medications and Allergies Allergies Allergy/AdvReac Type Severity Reaction Status Date / Time No Known Allergies Allergy Unverified 08/18/20 14:45 Home Medications Medication Instructions Recorded Confirmed Last Taken Type Amlodipine Besylate [Norvasc] 5 mg PO DAILY 08/18/20 08/18/20 Unknown History AtorvaSTATin [Lipitor] 20 mg PO QHS 08/18/20 08/18/20 Unknown History Cholecalciferol (Vitamin D3) 2,000 unit PO QDAY 08/18/20 08/18/20 Unknown History [Vitamin D3 2,000 UNIT CAP] Cyanocobalamin [Vitamin B-12] 1,000 mcg PO DAILY 08/18/20 08/18/20 Unknown History Folic Acid 1 mg PO QDAY 08/18/20 08/18/20 Unknown History Hydrocortisone 5 mg PO QHS 08/18/20 08/18/20 Unknown History Hydrocortisone 10 mg PO QAM 08/18/20 08/18/20 Unknown History Levothyroxine [Synthroid] 50 mcg PO QAM 08/18/20 08/18/20 Unknown History Ramipril 10 mg PO DAILY 08/18/20 08/18/20 Unknown History levETIRAcetam [Keppra TAB] 750 mg PO BID 08/18/20 08/18/20 Unknown History Active Meds: Active Medications Hydrocortisone Acetate (Hydrocortisone 10 Mg Tab) 10 mg PO QAM [facility] Hydrocortisone Acetate (Hydrocortisone 10 Mg Tab) 5 mg PO QHS [facility] Levetiracetam (Levetiracetam 500 Mg/5 Ml Oral Liqd) 750 mg PO BID [facility] Last Admin: 08/19/20 06:38 Dose: Not Given Documented by: Levothyroxine Sodium (Levothyroxine 50 Mcg Tab) 50 mcg PO QAM@0600 [facility] Review of Systems Cardiovascular: no chest pain, no orthopnea, no palpitations, no rapid/irregular heart beat, no edema, no syncope, no lightheadedness, no shortness of breath Physical Examination Vital Signs Temp BP 99.1 F 91/46 08/18/20 13:00 08/18/20 13:00 General appearance: cachectic, other (Patient is nonverbal) HEENT: Positive: PERRL Neck: Positive: neck supple Cardiac: Positive: Reg Rate and Rhythm Lungs: Positive: Decreased Breath Sounds Neuro: Positive: Weakness Abdomen: Positive: Soft Female genitourinary: deferred Skin: Positive: Clear Extremities: Absent: edema Results 08/18/20 Unknown 08/19/20 12:53 Cardiac Enzymes 08/18/20 08/18/20 Range/Units 15:35 15:35 AST 38 (5-40) units/L Lactate Dehydrogenase 228 H (91-180) units/L Lipids 08/18/20 Range/Units 18:25 Triglycerides 60 (2-149) mg/dL Cholesterol 79 (50-199) mg/dL HDL Cholesterol 23 L (40-59) mg/dL Cholesterol/HDL Ratio 3.43 % CBC 08/18/20 Range/Units Unknown WBC 20.3 H (4.5-11.0) K/mm3 RBC 3.40 L (3.65-5.03) M/mm3 Hgb 9.8 L (10.1-14.3) gm/dl Hct 29.0 L (30.3-42.9) % Plt Count 370 (140-440) K/mm3 Comprehensive Metabolic Panel 08/18/20 08/18/20 08/19/20 Range/Units 15:35 15:35 12:53 Sodium 146 H 148 H (137-145) mmol/L Potassium 4.9 3.7 D (3.6-5.0) mmol/L Chloride 106.7 113.7 H (98-107) mmol/L Carbon Dioxide 21 L 21 L (22-30) mmol/L BUN 55 H 64 H (7-17) mg/dL Creatinine 3.5 H 1.9 H (0.6-1.2) mg/dL Glucose 154 H 152 H 200 H (65-100) mg/dL Calcium 8.4 9.3 (8.4-10.2) mg/dL AST 38 (5-40) units/L ALT 11 (7-56) units/L Alkaline Phosphatase 57 (35-129) units/L Total Protein 6.2 L (6.3-8.2) g/dL Albumin 2.1 L (3.9-5) g/dL EKG interpretations - Telemetry EKG Rhythm: Sinus Rhythm Assessment and Plan - Patient Problems (1) Altered mental status Current Visit: Yes Status: Acute Plan to address problem: Elderly, skilled nursing patient with advanced dementia, presents with altered mental status, dehydration and severe renal failure after several days of poor p.o. intake. There is also a leukocytosis suggestive of a persistent infection. The mild isolated rise in troponin in this clinical setting is of uncertain significance, likely related to the acute renal failure. Patient is not a candidate for aggressive cardiac evaluation and therapies, we will defer to internal medicine and nephrology for management of dehydration, renal failure and sepsis.
[2020-08-19] MEDS: SODIUM CHLORIDE 0.45% 1000 ML 1,000 ML IV SCH (18:11)
[2020-08-19] MEDS ORDERED: dexAMETHasone 4 MG/ML VIAL IV ONE (19:15)
[2020-08-19] MEDS: HYDROCORTISONE 10 MG TAB PO SCH (21:24)
[2020-08-19] MEDS ORDERED: VANCOMYCIN 1,250 MG in SODIUM CHLORIDE 0.9% 250ML 250 ML IV SCH (22:00)
[2020-08-19] MEDS ORDERED: HYDROCORTISONE 5 MG PO SCH (22:00)
[2020-08-19] MEDS: levETIRAcetam 750 MG in DEXTROSE 5% IN WATER 100 ML IV SCH (22:15)
--- NOTE | 2020-08-19 23:44 | Progress Note ---
Assessment and Plan - Patient Problems (1) Acute metabolic encephalopathy Current Visit: Yes Status: Acute Plan to address problem: Secondary to sepsis and renal insufficiency (2) Adrenal insufficiency Current Visit: Yes Status: Acute Plan to address problem: On hydrocortisone 10 mg in the morning and 5 mg in the evening If necessary Solu-Medrol to be used We will consult envelope sealer operator Dr. Masters (3) Sepsis Current Visit: Yes Status: Acute Plan to address problem: Patient initiated on cefepime and vancomycin Also hypotensive to start with IV fluids for now (4) History of 2019 novel coronavirus disease (COVID-19) Current Visit: Yes Status: Acute Plan to address problem: Coronavirus PCR positive (5) History of adrenal insufficiency Current Visit: Yes Status: Acute (6) UTI (urinary tract infection) Current Visit: Yes Status: Acute Qualifiers: Urinary tract infection type: acute cystitis Plan to address problem: Patient initiated on IV antibiotics pending urine cultures (7) Elevated troponin Current Visit: Yes Status: Acute Plan to address problem: Probably secondary to elevated creatinine Baseline creatinine not known (8) PAWAN (acute kidney injury) Current Visit: Yes Status: Acute Plan to address problem: IV fluids for now Nephrology consult requested Possible underlying CKD (9) DVT prophylaxis Current Visit: Yes Status: Acute Plan to address problem: On Lovenox and GI prophylaxis Subjective Date of service: 08/19/20 Interval history: 80-year-old female with 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 Patient had Covid on 08/05/2020 and was treated. Patient has been lethargic and weak since this morning patient lives in the group home. Patient has decreased appetite and poor p.o. intake for the last 3 days. Patient unable to give history. Oxygen saturation was 97%. Blood pressure was 110 as per the EMS. Patient was apparently discharged from [facility] on 08/05/2020 after being treated for Covid. Patient was transferred to long-term facility. For physical therapy and increasing strength secondary to debility. Telemetry was independent. She was able to walk with a cane prior to the recent illness which necessitated admission to [facility]. Patient has [place]'s disease and is on hydrocortisone 10 mg in the morning and 5 mg in the evening. 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 Objective - Constitutional Vitals: Vital Signs - 12hr 08/19/20 08/19/20 08/19/20 12:42 13:16 14:00 Pulse Rate 51 L 77 75 Respiratory 11 L 16 Rate Blood Pressure 107/76 Blood Pressure 112/62 [Right] O2 Sat by Pulse 96 100 97 Oximetry 08/19/20 08/19/20 08/19/20 15:00 15:30 16:01 Pulse Rate 74 66 65 Respiratory 16 Rate Blood Pressure 108/39 108/39 Blood Pressure 117/82 [Right] O2 Sat by Pulse 100 99 99 Oximetry 08/19/20 08/19/20 08/19/20 17:00 18:00 18:16 Pulse Rate 78 71 64 Respiratory 16 Rate Blood Pressure 106/80 120/57 Blood Pressure 113/85 [Right] O2 Sat by Pulse 92 96 98 Oximetry 08/19/20 08/19/20 08/19/20 19:00 20:00 20:37 Pulse Rate 70 74 Respiratory 18 Rate Blood Pressure 118/68 121/63 Blood Pressure [Right] O2 Sat by Pulse 100 98 Oximetry 08/19/20 08/19/20 08/19/20 21:00 22:00 23:00 Pulse Rate 58 L 81 70 Respiratory Rate Blood Pressure 121/63 121/73 117/61 Blood Pressure [Right] O2 Sat by Pulse 97 99 Oximetry - Labs CBC & Chem 7: 08/18/20 Unknown 08/19/20 12:53 Labs: Abnormal lab results 08/19/20 08/19/20 Range/Units 08:32 12:53 Sodium 148 H (137-145) mmol/L Chloride 113.7 H (98-107) mmol/L Carbon Dioxide 21 L (22-30) mmol/L BUN 64 H (7-17) mg/dL Creatinine 1.9 H (0.6-1.2) mg/dL Glucose 200 H (65-100) mg/dL Total Creatine Kinase 1492 H (30-135) units/L Coronavirus (PCR) Positive A (Negative) HEART Score - HEART Score Troponin: Troponin T 0.075 ng/mL (0.00-0.029) H 08/18/20 18:25 Troponin: 1-3x normal limit - Critical Actions Critical Actions: 4-6 pts:12-16.6% risk of adverse cardiac event. Should be admitted
[2020-08-20] MEDS ORDERED: dexAMETHasone 4 MG/ML VIAL IV ONE (08:00)
[2020-08-20] MEDS: SODIUM CHLORIDE 0.45% 1000 ML 1,000 ML IV SCH ×2 (09:28→21:03)
[2020-08-20] MEDS: HYDROCORTISONE 10 MG TAB PO SCH ×3 (09:29→23:02)
[2020-08-20] MEDS: levETIRAcetam 500 MG/5 ML ORAL LIQD PO SCH (09:30)
--- NOTE | 2020-08-20 10:07 | Progress Note ---
Assessment and Plan - Patient Problems (1) Altered mental status Current Visit: Yes Status: Acute Plan to address problem: Elderly, shelter patient with advanced dementia, presents with altered mental status, leukocytosis, dehydration and severe renal failure after several days of poor p.o. intake. I will increase IV fluids to 100 cc an hour, encourage oral intake, otherwise conservative cardiac management. I will order a twelve-lead EKG for rhythm assessment. On supervisor logging, patient appears to have paroxysmal atrial fibrillation. Subjective Date of service: 08/20/20 Interval history: Patient is comfortable, no new cardiac complaints. Laboratory exam shows worsening dehydration and prerenal azotemia, with BUN now increased to 64. On supervisor logging, there is significant baseline artifact, but a suggestion of atrial fibrillation with a well-controlled ventricular rate. It will be recalled that on presentation, patient was in a sinus rhythm. Objective Vital Signs Pulse Resp BP BP Pulse Ox 08/20/20 06:00 58 L 127/88 08/20/20 05:00 67 129/55 08/20/20 04:00 77 118/62 08/20/20 03:00 84 103/75 93 08/20/20 02:00 76 108/62 97 08/20/20 01:00 68 131/63 94 08/20/20 00:00 82 99 08/19/20 23:40 73 244/49 96 08/19/20 23:00 70 117/61 99 08/19/20 22:00 81 121/73 08/19/20 21:00 58 L 121/63 97 08/19/20 20:37 98 08/19/20 20:00 74 18 121/63 100 08/19/20 19:00 70 118/68 08/19/20 18:16 64 16 113/85 98 08/19/20 18:00 71 120/57 96 08/19/20 17:00 78 106/80 92 08/19/20 16:01 65 108/39 99 08/19/20 15:30 66 16 117/82 99 08/19/20 15:00 74 108/39 100 08/19/20 14:00 75 107/76 97 08/19/20 13:16 77 16 112/62 100 08/19/20 12:51 72 118/62 08/19/20 12:42 51 L 11 L 96 08/19/20 11:00 63 16 99/48 100 - Physical Examination General: No Apparent Distress HEENT: Positive: PERRL Neck: Positive: neck supple Cardiac: Positive: irregularly irregular Lungs: Positive: Decreased Breath Sounds Neuro: Positive: Weakness Abdomen: Positive: Soft Skin: Positive: Clear Extremities: Absent: edema - Labs and Meds Comprehensive Metabolic Panel 08/19/20 Range/Units 12:53 Sodium 148 H (137-145) mmol/L Potassium 3.7 D (3.6-5.0) mmol/L Chloride 113.7 H (98-107) mmol/L Carbon Dioxide 21 L (22-30) mmol/L BUN 64 H (7-17) mg/dL Creatinine 1.9 H (0.6-1.2) mg/dL Glucose 200 H (65-100) mg/dL Calcium 9.3 (8.4-10.2) mg/dL - Imaging and Cardiology EKG: report reviewed
--- NOTE | 2020-08-20 10:07 | Progress Note ---
Assessment and Plan Acute Kidney injury possibly pre-renal/ATN: Altered Mental status: Adrenal insufficiency: Hypernatremia: Sepsis: Hx of Covid 19 Virus: UTI: -Continue 1/2 NS. Na is 148 -Cr trending down -Renally dose all meds -Avoid Nephrotoxic meds -Check Urine studies, CK level, Renal US Ky Younger MD [phone] Subjective Date of service: 08/20/20 Interval history: Making urine. Objective - Exam Narrative Exam: - EENT Eyes: Present: PERRL ENT: hearing intact, clear oral mucosa - Neck Neck: Present: supple, normal ROM - Respiratory Respiratory effort: normal Respiratory: bilateral: CTA - Cardiovascular Rhythm: regular Heart Sounds: Present: S1 & S2. Absent: rub, click - Extremities Extremities: no ischemia, pulses intact, pulses symmetrical, No edema Peripheral Pulses: within normal limits - Abdominal General gastrointestinal: Present: soft, non-tender, non-distended, normal bowel sounds Female genitourinary: Present: normal - Integumentary Integumentary: Present: clear, warm, dry - Musculoskeletal Musculoskeletal: gait normal, strength equal bilaterally - Psychiatric Psychiatric: awake - Neurologic Neurologic: CNII-XII intact, moves all extremities - Allied Health Allied health notes reviewed: nursing, case management - Vital Signs Vital signs: Vital Signs - 12hr 08/19/20 08/19/20 08/20/20 23:00 23:40 00:00 Pulse Rate 70 73 82 Blood Pressure 117/61 244/49 O2 Sat by Pulse 99 96 99 Oximetry 08/20/20 08/20/20 08/20/20 01:00 02:00 03:00 Pulse Rate 68 76 84 Blood Pressure 131/63 108/62 103/75 O2 Sat by Pulse 94 97 93 Oximetry 08/20/20 08/20/20 08/20/20 04:00 05:00 06:00 Pulse Rate 77 67 58 L Blood Pressure 118/62 129/55 127/88 O2 Sat by Pulse Oximetry - Lab 08/18/20 Unknown 08/19/20 12:53 Most recent lab results Calcium 9.3 mg/dL (8.4-10.2) 08/19/20 12:53 Medications & Allergies - Medications Allergies/Adverse Reactions: Allergies No Known Allergies Allergy (Unverified 08/18/20 14:45) Home Medications: Home Medications Medication Instructions Recorded Confirmed Last Taken Type Amlodipine Besylate [Norvasc] 5 mg PO DAILY 08/18/20 08/18/20 Unknown History AtorvaSTATin [Lipitor] 20 mg PO QHS 08/18/20 08/18/20 Unknown History Cholecalciferol (Vitamin D3) 2,000 unit PO QDAY 08/18/20 08/18/20 Unknown History [Vitamin D3 2,000 UNIT CAP] Cyanocobalamin [Vitamin B-12] 1,000 mcg PO DAILY 08/18/20 08/18/20 Unknown His tory Folic Acid 1 mg PO QDAY 08/18/20 08/18/20 Unknown History Hydrocortisone 5 mg PO QHS 08/18/20 08/18/20 Unknown History Hydrocortisone 10 mg PO QAM 08/18/20 08/18/20 Unknown History Levothyroxine [Synthroid] 50 mcg PO QAM 08/18/20 08/18/20 Unknown History Ramipril 10 mg PO DAILY 08/18/20 08/18/20 Unknown History levETIRAcetam [Keppra TAB] 750 mg PO BID 08/18/20 08/18/20 Unknown History Active Medications: Generic Name Dose Route Start Last Admin Trade Name Freq PRN Reason Stop Dose Admin Hydrocortisone Acetate 10 mg 08/19/20 10:00 08/19/20 21:24 Hydrocortisone 10 Mg Tab PO Not Given QAM BARBARA Hydrocortisone Acetate 5 mg 08/19/20 22:00 08/20/20 09:29 Hydrocortisone 10 Mg Tab PO Not Given QHS BARBARA Levetiracetam 750 mg/ Dextrose 107.5 mls @ 400 mls/hr 08/19/20 22:00 08/19/20 22:15 IV 400 mls/hr Q12H BARBARA Administration Sodium Chloride 1,000 mls @ 100 mls/hr 08/19/20 17:00 08/20/20 09:28 Nacl 0.45% 1000 Ml IV 08/22/20 16:59 75 mls/hr DIRECT BARBARA Administration Vancomycin HCl 1,250 mg/ 275 mls @ 137.5 mls/hr 08/19/20 22:00 08/19/20 22:18 Sodium Chloride IV 137.5 mls/hr Q48H BARBARA Administration Cefepime HCl 2 gm in 100 mls @ 200 mls/hr 08/20/20 10:00 Cefepime/Ns 2 Gm/100 Ml IV Q24HR BARBARA Protocol Levothyroxine Sodium 37.5 mcg 08/20/20 06:00 Levothyroxine 100 Mcg Inj IV DAILY@0600 BARBARA
[2020-08-20] MEDS: LEVOTHYROXINE 100 MCG INJ IV SCH (10:28)
[2020-08-20] MEDS: levETIRAcetam 750 MG in DEXTROSE 5% IN WATER 100 ML IV SCH ×2 (10:35→23:02)
[2020-08-20] MEDS: CEFEPIME/NS 2 GM/100 ML 2 GM/100 ML BAG IV SCH (11:50)
--- NOTE | 2020-08-20 12:54 | Consultation ---
History of Present Illness - Reason for Consult Consult date: 08/20/20 - History of Present Illness 80-year-old female past medical history [place]'s disease, hypertension, vitamin D deficiency, seizures brought to the hospital due to altered mental status. This began on the morning of admission. It is noted she was diagnosed with COVID-19 on 08/05/2020, and was previously treated. She is a resident of a senior care, and staff noted that she was lethargic and weak since the morning of admission. She also is noted to have decreased p.o. intake as well. She was treated for COVID-19 at [place], and discharged on 08/05/2020. She is on baseline steroids due to her [place]'s disease. Afebrile since admission with a white count of 20.3. Noted to have an PAWAN which is improving, though baseline is unclear procalcitonin is elevated. Covid testing remains positive. She is currently receiving cefepime and vancomycin. Blood and urine cultures currently pending. She is currently on 3 L nasal cannula. Urinalysis with some pyuria. Imaging personally reviewed: Chest x-ray: No acute findings. Review of Systems: Bold if positive, otherwise negative General: fevers, chills, rigors HEENT: visual disturbance, diplopia, eye pain Respiratory: cough, sputum, hemoptysis, shortness of breath Cardiovascular: chest pain, syncope Gastrointestinal: nausea, vomiting, diarrhea, abdominal pain Genitourinary: dysuria, hematuria, flank pain Musculoskeletal: neck pain, back pain, joint pain, edema Neurologic: headaches, seizures Hematologic: easy bruising or bleeding Endocrine: night sweats, acute weight loss Skin: rash, jaundice, redness Psychiatric: suicidal, homicidal ideation Past History Past Medical History: diabetes, hyperthyroidism, other (Pituitary insufficiency, secondary renal insufficiency) Past Surgical History: No surgical history Social history: full code, other (Lives in snf facility) Family history: hypertension Medications and Allergies Allergies Allergy/AdvReac Type Severity Reaction Status Date / Time No Known Allergies Allergy Unverified 08/18/20 14:45 Home Medications Medication Instructions Recorded Confirmed Last Taken Type Amlodipine Besylate [Norvasc] 5 mg PO DAILY 08/18/20 08/18/20 Unknown History AtorvaSTATin [Lipitor] 20 mg PO QHS 08/18/20 08/18/20 Unknown History Cholecalciferol (Vitamin D3) 2,000 unit PO QDAY 08/18/20 08/18/20 Unknown History [Vitamin D3 2,000 UNIT CAP] Cyanocobalamin [Vitamin B-12] 1,000 mcg PO DAILY 08/18/20 08/18/20 Unknown History Folic Acid 1 mg PO QDAY 08/18/20 08/18/20 Unknown History Hydrocortisone 5 mg PO QHS 08/18/20 08/18/20 Unknown History Hydrocortisone 10 mg PO QAM 08/18/20 08/18/20 Unknown History Levothyroxine [Synthroid] 50 mcg PO QAM 08/18/20 08/18/20 Unknown History Ramipril 10 mg PO DAILY 08/18/20 08/18/20 Unknown History levETIRAcetam [Keppra TAB] 750 mg PO BID 08/18/20 08/18/20 Unknown History Active Meds: Active Medications Hydrocortisone Acetate (Hydrocortisone 10 Mg Tab) 10 mg PO QAM [facility] Last Admin: 08/20/20 10:41 Dose: Not Given Documented by: Hydrocortisone Acetate (Hydrocortisone 10 Mg Tab) 5 mg PO QHS [facility] Last Admin: 08/20/20 09:29 Dose: Not Given Documented by: Levetiracetam 750 mg/ Dextrose 107.5 mls @ 400 mls/hr IV Q12H [facility] Last Admin: 08/20/20 10:35 Dose: 400 mls/hr Documented by: Sodium Chloride (Nacl 0.45% 1000 Ml) 1,000 mls @ 100 mls/hr IV DIRECT [facility] Stop: 08/22/20 16:59 Last Admin: 08/20/20 09:28 Dose: 75 mls/hr Documented by: Vancomycin HCl 1,250 mg/ (Sodium Chloride) 275 mls @ 137.5 mls/hr IV Q48H [facility] Last Admin: 08/19/20 22:18 Dose: 137.5 mls/hr Documented by: Cefepime HCl (Cefepime/Ns 2 Gm/100 Ml) 2 gm in 100 mls @ 200 mls/hr IV Q24HR [facility]; Protocol Last Admin: 08/20/20 11:50 Dose: 200 mls/hr Documented by: Levothyroxine Sodium (Levothyroxine 100 Mcg Inj) 37.5 mcg IV DAILY@0600 [facility] Last Admin: 08/20/20 10:28 Dose: 37.5 mcg Documented by: Physical Examination - Physical Exam Narrative exam: Physical exam deferred due to PPE conservation strategy. Please refer to primary team's note. - Constitutional Vitals: Vital Signs Temp Pulse Resp BP Pulse Ox 97.3 F L 58 L 18 127/88 93 08/19/20 09:00 08/20/20 06:00 08/19/20 20:00 08/20/20 06:00 08/20/20 03:00 Results - Labs CBC & Chem 7: 08/18/20 Unknown 08/19/20 12:53 Labs: Abnormal lab results 08/19/20 08/19/20 Range/Units 08:32 12:53 Sodium 148 H (137-145) mmol/L Chloride 113.7 H (98-107) mmol/L Carbon Dioxide 21 L (22-30) mmol/L BUN 64 H (7-17) mg/dL Creatinine 1.9 H (0.6-1.2) mg/dL Glucose 200 H (65-100) mg/dL Total Creatine Kinase 1492 H (30-135) units/L Coronavirus (PCR) Positive A (Negative) Assessment and Plan Cultures: Blood culture pending Urine culture pending A/P: 80-year-old female past medical history [place]'s disease, hypertension, vitamin D deficiency, seizures admitted with syncopal episode #Acute encephalopathy: Possibly secondary to infection versus decreased renal function. #UTI: Awaiting urine cultures #Acute hypoxic respiratory failure: Currently on 3 L nasal cannula. Unclear if she has discharged on oxygen from bradycardia when she had Covid. #History of COVID-19: PCR is positive, likely just noninfectious viral fragments #[place]'s disease: On chronic steroids, slightly immunocompromised host #PAWAN: Renally dose medications. Recs: -Continue empiric vancomycin and cefepime for now. -If blood cultures negative x48 hours, recommend stopping vancomycin. -Follow blood cultures -Follow-up urine cultures Thank you for the consult, we will continue to follow. MD Scottie [facility] O: [phone] F: [phone]
--- NOTE | 2020-08-20 21:24 | Progress Note ---
Assessment and Plan - Patient Problems (1) Acute metabolic encephalopathy Current Visit: Yes Status: Acute Plan to address problem: Secondary to sepsis and renal insufficiency (2) Adrenal insufficiency Current Visit: Yes Status: Acute Plan to address problem: On hydrocortisone 10 mg in the morning and 5 mg in the evening If necessary Solu-Medrol to be used We will consult automobile assembler Dr. Masters (3) Sepsis Current Visit: Yes Status: Acute Plan to address problem: Patient initiated on cefepime and vancomycin Also hypotensive to start with IV fluids for now (4) History of 2019 novel coronavirus disease (COVID-19) Current Visit: Yes Status: Acute Plan to address problem: Coronavirus PCR positive (5) History of adrenal insufficiency Current Visit: Yes Status: Acute (6) UTI (urinary tract infection) Current Visit: Yes Status: Acute Qualifiers: Urinary tract infection type: acute cystitis Plan to address problem: Patient initiated on IV antibiotics pending urine cultures (7) Elevated troponin Current Visit: Yes Status: Acute Plan to address problem: Probably secondary to elevated creatinine Baseline creatinine not known (8) PAWAN (acute kidney injury) Current Visit: Yes Status: Acute Plan to address problem: IV fluids for now Nephrology consult requested Possible underlying CKD (9) DVT prophylaxis Current Visit: Yes Status: Acute Plan to address problem: On Lovenox and GI prophylaxis Subjective Date of service: 08/20/20 Interval history: 80-year-old female with 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 Patient had Covid on 08/05/2020 and was treated. Patient has been lethargic and weak since this morning patient [facility]. Patient has decreased appetite and poor p.o. intake for the last 3 days. Patient unable to give history. Oxygen saturation was 97%. Blood pressure was 110 as per the EMS. Patient was apparently discharged from [facility] on 08/05/2020 after being treated for Covid. Patient was transferred to nursing home facility. For physical therapy and increasing strength secondary to debility. Telemetry was independent. She was able to walk with a cane prior to the recent illness which necessitated admission to [facility]. Patient has Colp's disease and is on hydrocortisone 10 mg in the morning and 5 mg in the evening. 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 Objective - Constitutional Vitals: Vital Signs - 12hr 08/20/20 08/20/20 08/20/20 10:00 11:00 12:00 Pulse Rate 80 73 76 Respiratory 14 10 L 12 Rate Blood Pressure 103/48 106/68 105/54 O2 Sat by Pulse 99 99 Oximetry 08/20/20 08/20/20 08/20/20 13:00 14:00 15:00 Pulse Rate 62 59 L 66 Respiratory 13 16 13 Rate Blood Pressure 115/54 112/78 96/51 O2 Sat by Pulse 98 Oximetry 08/20/20 08/20/20 08/20/20 16:00 17:00 18:00 Pulse Rate 66 84 82 Respiratory 13 15 18 Rate Blood Pressure 119/53 95/59 99/43 O2 Sat by Pulse 99 97 Oximetry General appearance: Present: no acute distress, well-nourished - EENT Eyes: PERRL, EOM intact ENT: hearing intact, clear oral mucosa Ears: bilateral: normal - Neck Neck: supple, normal ROM - Respiratory Respiratory effort: normal Respiratory: bilateral: CTA - Breasts Breasts: normal - Cardiovascular Rhythm: regular Heart Sounds: Present: S1 & S2. Absent: gallop, rub Extremities: pulses intact, No edema, normal color, Full ROM - Gastrointestinal General gastrointestinal: Present: soft, non-tender, non-distended, normal bowel sounds - Genitourinary Female genitourinary: normal - Integumentary Integumentary: clear, warm, dry - Musculoskeletal Musculoskeletal: 1, strength equal bilaterally - Neurologic Neurologic: moves all extremities - Psychiatric Psychiatric: memory intact, appropriate mood/affect, intact judgment & insight - Labs CBC & Chem 7: 08/18/20 Unknown 08/19/20 12:53 HEART Score - HEART Score Troponin: Troponin T 0.075 ng/mL (0.00-0.029) H 08/18/20 18:25 Troponin: 1-3x normal limit - Critical Actions Critical Actions: 4-6 pts:12-16.6% risk of adverse cardiac event. Should be admitted
[2020-08-21] MEDS: levETIRAcetam 750 MG in DEXTROSE 5% IN WATER 100 ML IV SCH ×2 (09:42→22:30)
[2020-08-21] MEDS: LEVOTHYROXINE 100 MCG INJ IV SCH (09:43)
[2020-08-21] MEDS: CEFEPIME/NS 2 GM/100 ML 2 GM/100 ML BAG IV SCH (09:43)
[2020-08-21] MEDS: HYDROCORTISONE SOD SUCC 100 MG/2 ML VIAL IV SCH ×2 (09:43→22:27)
[2020-08-21 14:07] LABS: BUN/Creatinine Ratio 59; Blood Urea Nitrogen 59 mg/dL (7-17); Calcium 8.5 mg/dL (8.4-10.2); Hemolysis Index 55
--- NOTE | 2020-08-21 14:48 | Progress Note ---
Assessment and Plan Acute Kidney injury possibly pre-renal/ATN: Altered Mental status: Adrenal insufficiency: Hypernatremia: Sepsis: Hx of Covid 19 Virus: UTI: -Na improving with IVFs. -Cr trending down -Ck slightly high, monitor. -Renally dose all meds -Avoid Nephrotoxic meds -UA bland -Renal US ordered. Ky Younger MD [phone] Subjective Date of service: 08/21/20 Interval history: Making urine. Objective - Exam Narrative Exam: - EENT Eyes: Present: PERRL ENT: hearing intact, clear oral mucosa - Neck Neck: Present: supple, normal ROM - Respiratory Respiratory effort: normal Respiratory: bilateral: CTA - Cardiovascular Rhythm: regular Heart Sounds: Present: S1 & S2. Absent: rub, click - Extremities Extremities: no ischemia, pulses intact, pulses symmetrical, No edema Peripheral Pulses: within normal limits - Abdominal General gastrointestinal: Present: soft, non-tender, non-distended, normal bowel sounds Female genitourinary: Present: normal - Integumentary Integumentary: Present: clear, warm, dry - Musculoskeletal Musculoskeletal: gait normal, strength equal bilaterally - Psychiatric Psychiatric: awake - Neurologic Neurologic: CNII-XII intact, moves all extremities - Allied Health Allied health notes reviewed: nursing, case management - Vital Signs Vital signs: Vital Signs - 12hr 08/21/20 08/21/20 08/21/20 03:00 04:00 05:00 Temperature Pulse Rate 84 69 57 L Respiratory 15 14 14 Rate Blood Pressure 109/43 119/57 111/52 O2 Sat by Pulse 99 98 98 Oximetry 08/21/20 08/21/20 08/21/20 06:00 07:00 08:00 Temperature 97.9 F Pulse Rate 72 63 66 Respiratory 14 15 15 Rate Blood Pressure 93/66 119/57 122/54 O2 Sat by Pulse 99 98 100 Oximetry 08/21/20 08/21/20 08/21/20 09:30 10:00 11:00 Temperature Pulse Rate 72 87 79 Respiratory 15 14 13 Rate Blood Pressure 109/63 134/63 131/59 O2 Sat by Pulse 99 98 98 Oximetry 08/21/20 08/21/20 12:00 13:30 Temperature Pulse Rate 77 72 Respiratory 11 L 20 Rate Blood Pressure 132/70 129/65 O2 Sat by Pulse 98 99 Oximetry - Lab 08/18/20 Unknown 08/21/20 13:20 Most recent lab results Calcium 8.5 mg/dL (8.4-10.2) 08/21/20 13:20 Medications & Allergies - Medications Allergies/Adverse Reactions: Allergies No Known Allergies Allergy (Unverified 08/18/20 14:45) Home Medications: Home Medications Medication Instructions Recorded Confirmed Last Taken Type Amlodipine Besylate [Norvasc] 5 mg PO DAILY 08/18/20 08/18/20 Unknown History AtorvaSTATin [Lipitor] 20 mg PO QHS 08/18/20 08/18/20 Unknown History Cholecalciferol (Vitamin D3) 2,000 unit PO QDAY 08/18/20 08/18/20 Unknown History [Vitamin D3 2,000 UNIT CAP] Cyanocobalamin [Vitamin B-12] 1,000 mcg PO DAILY 08/18/20 08/18/20 Unknown History Folic Acid 1 mg PO QDAY 08/18/20 08/18/20 Unknown History Hydrocortisone 5 mg PO QHS 08/18/20 08/18/20 Unknown History Hydrocortisone 10 mg PO QAM 08/18/20 08/18/20 Unknown History Levothyroxine [Synthroid] 50 mcg PO QAM 08/18/20 08/18/20 Unknown History Ramipril 10 mg PO DAILY 08/18/20 08/18/20 Unknown History levETIRAcetam [Keppra TAB] 750 mg PO BID 08/18/20 08/18/20 Unknown History Active Medications: Generic Name Dose Route Start Last Admin Trade Name Fantasmaq PRN Reason Stop Dose Admin Hydrocortisone Sodium Succinate 50 mg 08/21/20 10:00 08/21/20 09:43 Hydrocortisone Sod Succ 100 Mg/2 Ml Vial IV 50 mg Q12HR BARBARA Administration Levetiracetam 750 mg/ Dextrose 107.5 mls @ 400 mls/hr 08/19/20 22:00 08/21/20 09:42 IV 400 mls/hr Q12H BARBARA Administration Sodium Chloride 1,000 mls @ 100 mls/hr 08/19/20 17:00 08/20/20 21:03 Nacl 0.45% 1000 Ml IV 08/22/20 16:59 75 mls/hr DIRECT BARBARA Administration Cefepime HCl 2 gm in 100 mls @ 200 mls/hr 08/20/20 10:00 08/21/20 09:43 Cefepime/Ns 2 Gm/100 Ml IV 200 mls/hr Q24HR BARBARA Administration Protocol Levothyroxine Sodium 37.5 mcg 08/20/20 06:00 08/21/20 09:43 Levothyroxine 100 Mcg Inj IV 37.5 mcg DAILY@0600 BARBARA Administration
--- NOTE | 2020-08-21 18:42 | Progress Note ---
Assessment and Plan - Patient Problems (1) Altered mental status Current Visit: Yes Status: Acute Plan to address problem: Elderly, custodial patient with advanced dementia, presented with altered mental status, leukocytosis, dehydration and severe renal failure after several days of poor p.o. intake. Since her admission, the patient has developed atrial fibrillation with a well- controlled ventricular rate. It will be recalled that on presentation, patient was in a sinus rhythm. We will consider the addition of a low-dose Eliquis for long-term oral anticoagulation. (2) Atrial fibrillation Current Visit: Yes Status: Acute Plan to address problem: Since her admission, the patient has developed atrial fibrillation with a well- controlled ventricular rate. It will be recalled that on presentation, patient was in a sinus rhythm. We will consider the addition of a low-dose Eliquis for long-term oral anticoagulation. Subjective Date of service: 08/21/20 Interval history: Patient has no new cardiac complaints. Laboratory exam shows improvement in dehydration and prerenal azotemia, after the increase in intravenous hydration. Since her admission, the patient has developed atrial fibrillation with a well- controlled ventricular rate. It will be recalled that on presentation, patient was in a sinus rhythm. We will consider the addition of a low-dose Eliquis for long-term oral anticoagulation. Objective Vital Signs Temp Pulse Resp BP BP Pulse Ox 08/21/20 17:00 77 114/87 99 08/21/20 16:30 78 114/87 98 08/21/20 16:00 61 123/92 98 08/21/20 15:30 67 123/92 99 08/21/20 15:00 75 29 H 125/83 98 08/21/20 14:30 63 12 104/51 100 08/21/20 14:00 54 L 15 104/51 99 08/21/20 13:30 72 20 129/65 99 08/21/20 12:00 77 11 L 132/70 98 08/21/20 11:00 79 13 131/59 98 08/21/20 10:00 87 14 134/63 98 08/21/20 09:30 72 15 109/63 99 08/21/20 08:00 97.9 F 66 15 122/54 100 08/21/20 07:00 63 15 119/57 98 08/21/20 06:00 72 14 93/66 99 08/21/20 05:00 57 L 14 111/52 98 08/21/20 04:00 69 14 119/57 98 08/21/20 03:00 84 15 109/43 99 08/21/20 02:00 76 20 95/46 98 08/21/20 01:00 70 19 94/36 97 08/21/20 00:55 97.9 F 08/21/20 00:00 81 22 98/66 98 08/20/20 23:00 80 21 101/40 100 08/20/20 22:00 68 16 96/36 99 08/20/20 21:28 68 18 132/92 98 08/20/20 21:00 65 14 117/67 98 08/20/20 20:00 79 12 101/46 98 08/20/20 19:30 94.9 F L 60 20 132/92 98 08/20/20 19:00 78 13 93/45 98 - Physical Examination General: No Apparent Distress HEENT: Positive: PERRL Neck: Positive: neck supple Cardiac: Positive: irregularly irregular Lungs: Positive: Decreased Breath Sounds Neuro: Positive: Weakness Abdomen: Positive: Soft Skin: Positive: Clear Extremities: Absent: edema - Labs and Meds Comprehensive Metabolic Panel 08/21/20 Range/Units 13:20 Sodium 142 (137-145) mmol/L Potassium 4.0 (3.6-5.0) mmol/L Chloride 112.2 H (98-107) mmol/L Carbon Dioxide 20 L (22-30) mmol/L BUN 59 H (7-17) mg/dL Creatinine 1.0 (0.6-1.2) mg/dL Glucose 278 H (65-100) mg/dL Calcium 8.5 (8.4-10.2) mg/dL - Imaging and Cardiology EKG: report reviewed
--- NOTE | 2020-08-21 20:58 | Progress Note ---
Assessment and Plan - Patient Problems (1) Acute metabolic encephalopathy Current Visit: Yes Status: Acute Plan to address problem: Secondary to sepsis and renal insufficiency (2) Adrenal insufficiency Current Visit: Yes Status: Acute Plan to address problem: On hydrocortisone 10 mg in the morning and 5 mg in the evening If necessary Solu-Medrol to be used We will consult marketing regional consultant Dr. Masters (3) Sepsis Current Visit: Yes Status: Acute Plan to address problem: Patient initiated on cefepime and vancomycin Also hypotensive to start with IV fluids for now (4) History of 2019 novel coronavirus disease (COVID-19) Current Visit: Yes Status: Acute Plan to address problem: Coronavirus PCR positive (5) History of adrenal insufficiency Current Visit: Yes Status: Acute (6) UTI (urinary tract infection) Current Visit: Yes Status: Acute Qualifiers: Urinary tract infection type: acute cystitis Plan to address problem: Patient initiated on IV antibiotics pending urine cultures (7) Elevated troponin Current Visit: Yes Status: Acute Plan to address problem: Probably secondary to elevated creatinine Baseline creatinine not known (8) PAWAN (acute kidney injury) Current Visit: Yes Status: Acute Plan to address problem: IV fluids for now Nephrology consult requested Possible underlying CKD (9) DVT prophylaxis Current Visit: Yes Status: Acute Plan to address problem: On Lovenox and GI prophylaxis Subjective Date of service: 08/21/20 Interval history: 80-year-old female with 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 Patient had Covid on 08/05/2020 and was treated. Patient has been lethargic and weak since this morning patient lives in the long term. Patient has decreased appetite and poor p.o. intake for the last 3 days. Patient unable to give history. Oxygen saturation was 97%. Blood pressure was 110 as per the EMS. Patient was apparently discharged from [place] on 08/05/2020 after being treated for Covid. Patient was transferred to halfway facility. For physical therapy and increasing strength secondary to debility. Telemetry was independent. She was able to walk with a cane prior to the recent illness which necessitated admission to [facility]. 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 Objective - Constitutional Vitals: Vital Signs - 12hr 08/21/20 08/21/20 08/21/20 09:30 10:00 11:00 Pulse Rate 72 87 79 Respiratory 15 14 13 Rate Blood Pressure 109/63 134/63 131/59 O2 Sat by Pulse 99 98 98 Oximetry 08/21/20 08/21/20 08/21/20 12:00 13:30 14:00 Pulse Rate 77 72 54 L Respiratory 11 L 20 15 Rate Blood Pressure 132/70 129/65 104/51 O2 Sat by Pulse 98 99 99 Oximetry 08/21/20 08/21/20 08/21/20 14:30 15:00 15:30 Pulse Rate 63 75 67 Respiratory 12 29 H Rate Blood Pressure 104/51 125/83 123/92 O2 Sat by Pulse 100 98 99 Oximetry 08/21/20 08/21/20 08/21/20 16:00 16:30 17:00 Pulse Rate 61 78 77 Respiratory Rate Blood Pressure 123/92 114/87 114/87 O2 Sat by Pulse 98 98 99 Oximetry 08/21/20 08/21/20 08/21/20 17:30 18:00 18:30 Pulse Rate 75 81 67 Respiratory Rate Blood Pressure 114/87 117/66 128/68 O2 Sat by Pulse 100 100 100 Oximetry 08/21/20 08/21/20 19:30 20:30 Pulse Rate 77 76 Respiratory 18 Rate Blood Pressure 136/67 120/66 O2 Sat by Pulse 99 98 Oximetry General appearance: Present: no acute distress, well-nourished - EENT Eyes: PERRL, EOM intact ENT: hearing intact, clear oral mucosa Ears: bilateral: normal - Neck Neck: supple, normal ROM - Respiratory Respiratory effort: normal Respiratory: bilateral: CTA - Breasts Breasts: normal - Cardiovascular Rhythm: regular Heart Sounds: Present: S1 & S2. Absent: gallop, rub Extremities: pulses intact, No edema, normal color, Full ROM - Gastrointestinal General gastrointestinal: Present: soft, non-tender, non-distended, normal bowel sounds - Genitourinary Female genitourinary: normal - Integumentary Integumentary: clear, warm, dry - Musculoskeletal Musculoskeletal: 1, strength equal bilaterally - Neurologic Neurologic: moves all extremities - Psychiatric Psychiatric: memory intact, appropriate mood/affect, intact judgment & insight - Labs CBC & Chem 7: 12/31/20 Unknown 08/21/20 13:20 Labs: Abnormal lab results 08/21/20 08/21/20 Range/Units 01:51 13:20 Chloride 112.2 H (98-107) mmol/L Carbon Dioxide 20 L (22-30) mmol/L BUN 59 H (7-17) mg/dL Glucose 278 H (65-100) mg/dL POC Glucose 236 H (70-105) mg/dL HEART Score - HEART Score Troponin: Troponin T 0.075 ng/mL (0.00-0.029) H 08/18/20 18:25 Troponin: 1-3x normal limit - Critical Actions Critical Actions: 4-6 pts:12-16.6% risk of adverse cardiac event. Should be admitted
[2020-08-21] MEDS: APIXABAN 2.5 MG TAB PO SCH (22:26)
[2020-08-22] MEDS: LEVOTHYROXINE 100 MCG INJ IV SCH (06:51)
[2020-08-22] MEDS: APIXABAN 2.5 MG TAB PO SCH ×2 (10:42→22:48)
[2020-08-22] MEDS: HYDROCORTISONE SOD SUCC 100 MG/2 ML VIAL IV SCH ×2 (10:42→22:49)
[2020-08-22] MEDS: CEFEPIME/NS 2 GM/100 ML 2 GM/100 ML BAG IV SCH ×2 (10:42→22:48)
[2020-08-22] MEDS: SODIUM CHLORIDE 0.45% 1000 ML 1,000 ML IV SCH (10:43)
[2020-08-22] MEDS: levETIRAcetam 750 MG in DEXTROSE 5% IN WATER 100 ML IV SCH (10:59)
--- NOTE | 2020-08-22 12:38 | Progress Note ---
Assessment and Plan - Patient Problems (1) Altered mental status Current Visit: Yes Status: Acute Plan to address problem: Elderly, alf patient with advanced dementia, presented with altered mental status, leukocytosis, dehydration and severe renal failure after several days of poor p.o. intake. Since her admission, the patient has developed atrial fibrillation with a well- controlled ventricular rate. It will be recalled that on presentation, patient was in a sinus rhythm. We have added low-dose Eliquis for long-term oral anticoagulation. (2) Atrial fibrillation Current Visit: Yes Status: Acute Plan to address problem: Since her admission, the patient has developed atrial fibrillation with a well- controlled ventricular rate. It will be recalled that on presentation, patient was in a sinus rhythm. We have added low-dose Eliquis for long-term oral anticoagulation. Subjective Date of service: 08/22/20 Interval history: Patient has no new cardiac complaints. On telemetry remains in atrial fibrillation with a well-controlled ventricular rate. Objective Vital Signs Pulse Resp BP Pulse Ox 08/22/20 01:30 59 L 16 149/55 100 08/22/20 01:00 74 20 149/55 100 08/22/20 00:30 75 18 116/78 99 08/22/20 00:00 72 16 116/78 99 08/21/20 23:30 72 27 H 119/75 99 08/21/20 23:00 70 21 124/60 99 08/21/20 22:30 79 19 128/76 98 08/21/20 22:00 79 12 110/50 99 08/21/20 21:30 65 19 120/66 99 08/21/20 21:00 75 15 120/66 99 08/21/20 20:50 83 15 120/66 100 08/21/20 20:30 76 18 120/66 98 08/21/20 19:30 77 136/67 99 08/21/20 18:30 67 128/68 100 08/21/20 18:00 81 117/66 100 08/21/20 17:30 75 114/87 100 08/21/20 17:00 77 114/87 99 08/21/20 16:30 78 114/87 98 08/21/20 16:00 61 123/92 98 08/21/20 15:30 67 123/92 99 08/21/20 15:00 75 29 H 125/83 98 08/21/20 14:30 63 12 104/51 100 08/21/20 14:00 54 L 15 104/51 99 08/21/20 13:30 72 20 129/65 99 - Physical Examination General: No Apparent Distress HEENT: Positive: PERRL Neck: Positive: neck supple Cardiac: Positive: irregularly irregular Lungs: Positive: Decreased Breath Sounds Neuro: Positive: Weakness Abdomen: Positive: Soft Skin: Positive: Clear Extremities: Absent: edema - Labs and Meds Comprehensive Metabolic Panel 08/21/20 Range/Units 13:20 Sodium 142 (137-145) mmol/L Potassium 4.0 (3.6-5.0) mmol/L Chloride 112.2 H (98-107) mmol/L Carbon Dioxide 20 L (22-30) mmol/L BUN 59 H (7-17) mg/dL Creatinine 1.0 (0.6-1.2) mg/dL Glucose 278 H (65-100) mg/dL Calcium 8.5 (8.4-10.2) mg/dL - Imaging and Cardiology EKG: report reviewed
--- NOTE | 2020-08-22 13:05 | Progress Note ---
Assessment and Plan Cultures: Blood culture pending Urine culture pending A/P: 80-year-old female past medical history Van Wert's disease, hypertension, vitamin D deficiency, seizures admitted with syncopal episode #Acute encephalopathy: Possibly secondary to infection versus decreased renal function. #UTI: Awaiting urine cultures #Acute hypoxic respiratory failure: Currently on 3 L nasal cannula. Unclear if she has discharged on oxygen from bradycardia when she had Covid. #History of COVID-19: PCR is positive, likely just noninfectious viral fragments #[place] Wert's disease: On chronic steroids, slightly immunocompromised host #PAWAN: Renally dose medications. Recs: -Stop vancomycin -Continue cefepime -Repeat CBC in a.m. Thank you for the consult, we will continue to follow. Franklyn Evans MD [facility] ([facility] O: [phone] F: [phone] Subjective Date of service: 08/22/20 Interval history: Afebrile, no acute change present. Covid positive. All cultures remain negative. Objective - Exam Narrative Exam: Physical exam deferred due to PPE conservation strategy. Please refer to primary team's note. - Constitutional Vitals: Vital Signs Temp Pulse Resp BP Pulse Ox 97.9 F 59 L 16 149/55 100 08/21/20 08:00 08/22/20 01:30 08/22/20 01:30 08/22/20 01:30 08/22/20 01:30 - Labs CBC & Chem 7: 08/18/20 Unknown 08/21/20 13:20 Labs: Abnormal lab results 08/21/20 Range/Units 13:20 Chloride 112.2 H (98-107) mmol/L Carbon Dioxide 20 L (22-30) mmol/L BUN 59 H (7-17) mg/dL Glucose 278 H (65-100) mg/dL
--- NOTE | 2020-08-22 17:51 | Progress Note ---
Assessment and Plan Acute Kidney injury possibly prerenal/ATN, r/o obstruction Acute Encephalopathy Adrenal insufficiency: Hypernatremia: Sepsis: Hx of Covid 19 Virus: UTI: Plan: -Labs pending today -CK was slightly elevated, monitor -Renal US pending -On hydrocortisone succinate 50 mg IV q 12 hrs -Renally dose all meds -UA bland -Intake= 1315 ml Output= 325 ml (Net= 990 ml) -Renal plan d/w Dr Pena Subjective Date of service: 08/22/20 Interval history: Pt with hx of COVID-19, positive PCR on 08/19/20, pt not examined to limit direct contact/resources of PPE, reviewed medical chart, labs, and notes Objective - Lab 08/18/20 Unknown 08/21/20 13:20 Most recent lab results Calcium 8.5 mg/dL (8.4-10.2) 08/21/20 13:20 Medications & Allergies - Medications Allergies/Adverse Reactions: Allergies No Known Allergies Allergy (Unverified 08/18/20 14:45) Home Medications: Home Medications Medication Instructions Recorded Confirmed Last Taken Type Amlodipine Besylate [Norvasc] 5 mg PO DAILY 08/18/20 08/18/20 Unknown History AtorvaSTATin [Lipitor] 20 mg PO QHS 08/18/20 08/18/20 Unknown History Cholecalciferol (Vitamin D3) 2,000 unit PO QDAY 08/18/20 08/18/20 Unknown History [Vitamin D3 2,000 UNIT CAP] Cyanocobalamin [Vitamin B-12] 1,000 mcg PO DAILY 08/18/20 08/18/20 Unknown History Folic Acid 1 mg PO QDAY 08/18/20 08/18/20 Unknown History Hydrocortisone 5 mg PO QHS 08/18/20 08/18/20 Unknown History Hydrocortisone 10 mg PO QAM 08/18/20 08/18/20 Unknown History Levothyroxine [Synthroid] 50 mcg PO QAM 08/18/20 08/18/20 Unknown History Ramipril 10 mg PO DAILY 08/18/20 08/18/20 Unknown History levETIRAcetam [Keppra TAB] 750 mg PO BID 08/18/20 08/18/20 Unknown History Active Medications: Generic Name Dose Route Start Last Admin Trade Name Freq PRN Reason Stop Dose Admin Apixaban 2.5 mg 08/21/20 22:00 08/22/20 10:42 Apixaban 2.5 Mg Tab PO 2.5 mg Q12HR BARBARA Administration Protocol Hydrocortisone Sodium Succinate 50 mg 08/21/20 10:00 08/22/20 10:42 Hydrocortisone Sod Succ 100 Mg/2 Ml Vial IV 50 mg Q12HR BARBARA Administration Cefepime HCl 2 gm in 100 mls @ 200 mls/hr 08/22/20 22:00 Cefepime/Ns 2 Gm/100 Ml IV Q12HR BARBARA Protocol Levetiracetam 750 mg 08/22/20 22:00 Levetiracetam 500 Mg/5 Ml Oral Liqd PO BID BARBARA Levothyroxine Sodium 37.5 mcg 08/20/20 06:00 08/22/20 06:51 Levothyroxine 100 Mcg Inj IV 37.5 mcg DAILY@0600 BARBARA Administration
[2020-08-22 20:14] LABS: BUN/Creatinine Ratio 60; Blood Urea Nitrogen 48 mg/dL (7-17); Hemolysis Index 9
[2020-08-22 20:27] LABS: Hemoglobin 19.5 gm/dl (10.1-14.3); Mean Corpuscular HGB Conc 33 % (30-34); Mean Corpuscular Volume 85 fl (79-97); Platelet Count 123 K/mm3 (140-440); Red Blood Count 7.02 M/mm3 (3.65-5.03); Red Cell Distribution Width 16.2 % (13.2-15.2)
[2020-08-22 20:32] LABS: Hematocrit 59.6 % (30.3-42.9)
[2020-08-22 21:42] LABS: Hematocrit 32.3 % (30.3-42.9); Hemoglobin 10.4 gm/dl (10.1-14.3); Mean Corpuscular HGB Conc 32 % (30-34); Mean Corpuscular Volume 85 fl (79-97); Platelet Count 346 K/mm3 (140-440); Red Cell Distribution Width 15.5 % (13.2-15.2)
[2020-08-22 21:46] LABS: BUN/Creatinine Ratio 56; Blood Urea Nitrogen 45 mg/dL (7-17); Calcium 8.5 mg/dL (8.4-10.2); Hemolysis Index 17
[2020-08-22] MEDS: levETIRAcetam 500 MG/5 ML ORAL LIQD PO SCH (22:48)
[2020-08-22 23:31] LABS: Total Cells Counted 100
[2020-08-22 23:35] LABS: Burr Cells Few; Ovalocytes Rare
[2020-08-22 23:36] LABS: Large Platelets Rare; Platelet Estimate Consistent w Auto
--- NOTE | 2020-08-23 04:14 | Progress Note ---
Assessment and Plan - Patient Problems (1) Acute metabolic encephalopathy Current Visit: Yes Status: Acute Plan to address problem: Secondary to sepsis and renal insufficiency (2) Adrenal insufficiency Current Visit: Yes Status: Acute Plan to address problem: On hydrocortisone 10 mg in the morning and 5 mg in the evening If necessary Solu-Medrol to be used We will consult lending advisor Dr. Masters (3) Sepsis Current Visit: Yes Status: Acute Plan to address problem: Patient initiated on cefepime and vancomycin Also hypotensive to start with IV fluids for now (4) History of 2019 novel coronavirus disease (COVID-19) Current Visit: Yes Status: Acute Plan to address problem: Coronavirus PCR positive (5) History of adrenal insufficiency Current Visit: Yes Status: Chronic Plan to address problem: Patient started on hydrocortisone 10 mg in the morning and 5 mg in the evening (6) UTI (urinary tract infection) Current Visit: Yes Status: Acute Qualifiers: Urinary tract infection type: acute cystitis Plan to address problem: Patient initiated on IV antibiotics pending urine cultures (7) Elevated troponin Current Visit: Yes Status: Acute Plan to address problem: Probably secondary to elevated creatinine Baseline creatinine not known (8) PAWAN (acute kidney injury) Current Visit: Yes Status: Acute Plan to address problem: IV fluids for now Nephrology consult requested Possible underlying CKD (9) DVT prophylaxis Current Visit: Yes Status: Acute Plan to address problem: On Lovenox and GI prophylaxis Subjective Date of service: 08/22/20 Principal diagnosis: Acute encephalopathy Interval history: 80-year-old female with 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 Patient had Covid on 08/05/2020 and was treated. Patient has been lethargic and weak since this morning patient lives in the alf. Patient has decreased appetite and poor p.o. intake for the last 3 days. Patient unable to give history. Oxygen saturation was 97%. Blood pressure was 110 as per the EMS. Patient was apparently discharged from [place] on 08/05/2020 after being treated for Covid. [facility] For physical therapy and increasing strength secondary to debility. Telemetry was independent. She was able to walk with a cane prior to the recent illness which necessitated admission to [facility]. 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 Objective - Constitutional Vitals: Vital Signs - 12hr 08/22/20 08/22/20 08/22/20 16:31 17:01 17:30 Pulse Rate 65 63 77 Respiratory Rate Blood Pressure 96/45 113/34 99/44 O2 Sat by Pulse 100 100 99 Oximetry 08/22/20 08/22/20 08/22/20 18:01 18:31 19:01 Pulse Rate 78 72 71 Respiratory Rate Blood Pressure 139/71 137/59 117/72 O2 Sat by Pulse 100 100 100 Oximetry 08/22/20 08/22/20 08/22/20 19:31 20:01 20:31 Pulse Rate 71 68 76 Respiratory Rate Blood Pressure 126/55 130/56 129/78 O2 Sat by Pulse 100 100 100 Oximetry 08/22/20 08/22/20 08/22/20 20:51 21:01 21:11 Pulse Rate Respiratory Rate Blood Pressure 129/78 135/72 135/72 O2 Sat by Pulse 99 100 98 Oximetry 08/22/20 08/22/20 08/22/20 21:21 21:31 21:41 Pulse Rate 72 Respiratory 21 Rate Blood Pressure 135/72 90/72 90/72 O2 Sat by Pulse 100 100 100 Oximetry 08/22/20 08/22/20 08/22/20 21:51 22:00 22:11 Pulse Rate Respiratory Rate Blood Pressure 90/72 130/86 130/86 O2 Sat by Pulse 100 100 100 Oximetry 08/22/20 08/22/20 08/22/20 22:21 22:31 22:41 Pulse Rate Respiratory Rate Blood Pressure 130/86 135/69 135/69 O2 Sat by Pulse 100 100 100 Oximetry 08/22/20 08/22/20 08/22/20 22:51 23:01 23:11 Pulse Rate Respiratory Rate Blood Pressure 135/69 116/76 116/76 O2 Sat by Pulse 100 100 99 Oximetry 08/22/20 08/22/20 08/22/20 23:21 23:31 23:41 Pulse Rate Respiratory Rate Blood Pressure 116/76 116/76 116/76 O2 Sat by Pulse 99 100 100 Oximetry 01/04/21 01/05/21 01/05/21 23:51 00:00 00:30 Pulse Rate 71 Respiratory 20 Rate Blood Pressure 116/76 116/76 116/73 O2 Sat by Pulse 100 100 93 Oximetry General appearance: Present: no acute distress, well-nourished - EENT Eyes: PERRL, EOM intact ENT: hearing intact, clear oral mucosa Ears: bilateral: normal - Neck Neck: supple, normal ROM - Respiratory Respiratory effort: normal Respiratory: bilateral: CTA - Breasts Breasts: normal - Cardiovascular Heart rate: 78 Rhythm: regular Heart Sounds: Present: S1 & S2. Absent: gallop, rub Extremities: pulses intact, No edema, normal color, Full ROM - Gastrointestinal General gastrointestinal: Present: soft, non-tender, non-distended, normal bowel sounds - Genitourinary Female genitourinary: normal - Integumentary Integumentary: clear, warm, dry - Musculoskeletal Musculoskeletal: 1, strength equal bilaterally - Neurologic Neurologic: moves all extremities - Psychiatric Psychiatric: other (Alert but not oriented) - Labs CBC & Chem 7: 08/22/20 21:14 08/22/20 21:14 Labs: Abnormal lab results 08/22/20 08/22/20 08/22/20 Range/Units 19:44 19:44 19:44 WBC (4.5-11.0) K/mm3 RBC 7.02 H (3.65-5.03) M/mm3 Hgb 19.5 H (10.1-14.3) gm/dl Hct 59.6 H* (30.3-42.9) % MCH (28-32) pg RDW 16.2 H (13.2-15.2) % Plt Count 123 L (140-440) K/mm3 Seg Neuts % (Manual) (40.0-70.0) % Lymphocytes % (Manual) (13.4-35.0) % Seg Neutrophils # Man (1.8-7.7) K/mm3 Lymphocytes # (Manual) (1.2-5.4) K/mm3 Chloride 110.4 H (98-107) mmol/L Carbon Dioxide 18 L (22-30) mmol/L BUN 48 H (7-17) mg/dL Glucose 306 H (65-100) mg/dL Total Creatine Kinase 164 H (30-135) units/L 08/22/20 08/22/20 Range/Units 21:14 21:14 WBC 13.7 H (4.5-11.0) K/mm3 RBC (3.65-5.03) M/mm3 Hgb (10.1-14.3) gm/dl Hct (30.3-42.9) % MCH 27 L (28-32) pg RDW 15.5 H (13.2-15.2) % Plt Count (140-440) K/mm3 Seg Neuts % (Manual) 92.0 H (40.0-70.0) % Lymphocytes % (Manual) 5.0 L (13.4-35.0) % Seg Neutrophils # Man 12.6 H (1.8-7.7) K/mm3 Lymphocytes # (Manual) 0.7 L (1.2-5.4) K/mm3 Chloride 108.8 H (98-107) mmol/L Carbon Dioxide 20 L (22-30) mmol/L BUN 45 H (7-17) mg/dL Glucose 286 H (65-100) mg/dL Total Creatine Kinase (30-135) units/L HEART Score - HEART Score Troponin: Troponin T 0.075 ng/mL (0.00-0.029) H 08/18/20 18:25 Troponin: 1-3x normal limit - Critical Actions Critical Actions: 4-6 pts:12-16.6% risk of adverse cardiac event. Should be admitted
[2020-08-23] MEDS: LEVOTHYROXINE 100 MCG INJ IV SCH (05:52)
[2020-08-23] MEDS ORDERED: hydrALAZINE 20 MG/1 ML INJ IV ONE (06:11)
[2020-08-23 06:20] LABS: Hematocrit 30.4 % (30.3-42.9); Hemoglobin 9.6 gm/dl (10.1-14.3); Mean Corpuscular HGB Conc 32 % (30-34); Mean Corpuscular Volume 84 fl (79-97); Platelet Count 353 K/mm3 (140-440); Red Cell Distribution Width 15.9 % (13.2-15.2)
[2020-08-23 06:29] LABS: Basophils % (Auto) 0.1 % (0.0-1.8); Lymphocytes # (Auto) 0.6 K/mm3 (1.2-5.4); Lymphocytes % (Auto) 4.5 % (13.4-35.0); Monocytes # (Auto) 0.5 K/mm3 (0.0-0.8); Monocytes % (Auto) 3.5 % (0.0-7.3)
[2020-08-23 06:32] LABS: Blood Urea Nitrogen 42 mg/dL (7-17); Calcium 8.9 mg/dL (8.4-10.2); Hemolysis Index 2
[2020-08-23 06:47] LABS: BUN/Creatinine Ratio 60
--- NOTE | 2020-08-23 08:58 | Progress Note ---
Assessment and Plan Acute Kidney injury possibly prerenal/ATN, r/o obstruction Acute Encephalopathy Adrenal insufficiency: Hypernatremia: Sepsis: Hx of Covid 19 Virus: UTI: Plan: -PAWAN resolved - elevated BUN likely due to systemic steroids -Renally dose all meds -UA bland will sign off. please re-consult if needed Subjective Date of service: 08/23/20 Principal diagnosis: Acute encephalopathy Interval history: Pt with hx of COVID-19, positive PCR on 08/19/20, pt not examined to limit direct contact/resources of PPE, reviewed medical chart, labs, and notes Objective - Vital Signs Vital signs: Vital Signs - 12hr 08/22/20 08/22/20 08/22/20 21:01 21:11 21:21 Pulse Rate 72 Respiratory 21 Rate Blood Pressure 135/72 135/72 135/72 O2 Sat by Pulse 100 98 100 Oximetry 08/22/20 08/22/20 08/22/20 21:31 21:41 21:51 Pulse Rate Respiratory Rate Blood Pressure 90/72 90/72 90/72 O2 Sat by Pulse 100 100 100 Oximetry 08/22/20 08/22/20 08/22/20 22:00 22:11 22:21 Pulse Rate Respiratory Rate Blood Pressure 130/86 130/86 130/86 O2 Sat by Pulse 100 100 100 Oximetry 08/22/20 08/22/20 08/22/20 22:31 22:41 22:51 Pulse Rate Respiratory Rate Blood Pressure 135/69 135/69 135/69 O2 Sat by Pulse 100 100 100 Oximetry 08/22/20 08/22/20 08/22/20 23:01 23:11 23:21 Pulse Rate Respiratory Rate Blood Pressure 116/76 116/76 116/76 O2 Sat by Pulse 100 99 99 Oximetry 08/22/20 08/22/20 08/22/20 23:31 23:41 23:51 Pulse Rate Respiratory Rate Blood Pressure 116/76 116/76 116/76 O2 Sat by Pulse 100 100 100 Oximetry 08/23/20 08/23/20 08/23/20 00:00 00:30 02:26 Pulse Rate 71 Respiratory 20 Rate Blood Pressure 116/76 116/73 116/76 O2 Sat by Pulse 100 93 100 Oximetry 08/23/20 05:55 Pulse Rate 73 Respiratory 22 Rate Blood Pressure 166/103 O2 Sat by Pulse 99 Oximetry - Lab 08/23/20 04:32 08/23/20 04:32 Most recent lab results Calcium 8.9 mg/dL (8.4-10.2) 08/23/20 04:32 Medications & Allergies - Medications Allergies/Adverse Reactions: Allergies No Known Allergies Allergy (Unverified 08/18/20 14:45) Home Medications: Home Medications Medication Instructions Recorded Confirmed Last Taken Type Amlodipine Besylate [Norvasc] 5 mg PO DAILY 08/18/20 08/18/20 Unknown History AtorvaSTATin [Lipitor] 20 mg PO QHS 08/18/20 08/18/20 Unknown History Cholecalciferol (Vitamin D3) 2,000 unit PO QDAY 08/18/20 08/18/20 Unknown History [Vitamin D3 2,000 UNIT CAP] Cyanocobalamin [Vitamin B-12] 1,000 mcg PO DAILY 08/18/20 08/18/20 Unknown H istory Folic Acid 1 mg PO QDAY 08/18/20 08/18/20 Unknown History Hydrocortisone 5 mg PO QHS 08/18/20 08/18/20 Unknown History Hydrocortisone 10 mg PO QAM 08/18/20 08/18/20 Unknown History Levothyroxine [Synthroid] 50 mcg PO QAM 08/18/20 08/18/20 Unknown History Ramipril 10 mg PO DAILY 08/18/20 08/18/20 Unknown History levETIRAcetam [Keppra TAB] 750 mg PO BID 08/18/20 08/18/20 Unknown History Active Medications: Generic Name Dose Route Start Last Admin Trade Name Freq PRN Reason Stop Dose Admin Apixaban 2.5 mg 08/21/20 22:00 08/22/20 22:48 Apixaban 2.5 Mg Tab PO 2.5 mg Q12HR BARBARA Administration Protocol Hydrocortisone Sodium Succinate 50 mg 08/21/20 10:00 08/22/20 22:49 Hydrocortisone Sod Succ 100 Mg/2 Ml Vial IV 50 mg Q12HR BARBARA Administration Cefepime HCl 2 gm in 100 mls @ 200 mls/hr 08/22/20 22:00 08/22/20 22:48 Cefepime/Ns 2 Gm/100 Ml IV 200 mls/hr Q12HR BARBARA Administration Protocol Levetiracetam 750 mg 08/22/20 22:00 08/22/20 22:48 Levetiracetam 500 Mg/5 Ml Oral Liqd PO 750 mg BID BARBARA Administration Levothyroxine Sodium 37.5 mcg 08/20/20 06:00 08/23/20 05:52 Levothyroxine 100 Mcg Inj IV 37.5 mcg DAILY@0600 BARBARA Administration
[2020-08-23] MEDS: HYDROCORTISONE SOD SUCC 100 MG/2 ML VIAL IV SCH ×2 (09:14→21:19)
[2020-08-23] MEDS: levETIRAcetam 500 MG/5 ML ORAL LIQD PO SCH ×2 (09:14→21:29)
[2020-08-23] MEDS: APIXABAN 2.5 MG TAB PO SCH ×2 (09:14→21:29)
[2020-08-23] MEDS: CEFEPIME/NS 2 GM/100 ML 2 GM/100 ML BAG IV SCH ×2 (09:15→21:19)
--- NOTE | 2020-08-23 12:04 | Progress Note ---
Assessment and Plan - Patient Problems (1) Altered mental status Current Visit: Yes Status: Acute Plan to address problem: Elderly, jail patient with advanced dementia, presented with altered mental status, leukocytosis, dehydration and severe renal failure after several days of poor p.o. intake. Since her admission, the patient has developed atrial fibrillation with a well- controlled ventricular rate. It will be recalled that on presentation, patient was in a sinus rhythm. We have added low-dose Eliquis for long-term oral anticoagulation. (2) Atrial fibrillation Current Visit: Yes Status: Acute Plan to address problem: Patient has paroxysmal atrial fibrillation, currently in a stable sinus rhythm at 66. We have added low-dose Eliquis for long-term oral anticoagulation. Subjective Date of service: 08/23/20 Principal diagnosis: Acute encephalopathy Interval history: Patient has no new cardiac complaints. On telemetry patient is back to a sinus rhythm at 66. Objective Vital Signs Pulse Resp BP Pulse Ox 08/23/20 05:55 73 22 166/103 99 08/23/20 02:26 116/76 100 08/23/20 00:30 71 20 116/73 93 08/23/20 00:00 116/76 100 08/22/20 23:51 116/76 100 08/22/20 23:41 116/76 100 08/22/20 23:31 116/76 100 08/22/20 23:21 116/76 99 08/22/20 23:11 116/76 99 08/22/20 23:01 116/76 100 08/22/20 22:51 135/69 100 08/22/20 22:41 135/69 100 08/22/20 22:31 135/69 100 08/22/20 22:21 130/86 100 08/22/20 22:11 130/86 100 08/22/20 22:00 130/86 100 08/22/20 21:51 90/72 100 08/22/20 21:41 90/72 100 08/22/20 21:31 90/72 100 08/22/20 21:21 72 21 135/72 100 08/22/20 21:11 135/72 98 08/22/20 21:01 135/72 100 08/22/20 20:51 129/78 99 08/22/20 20:31 76 129/78 100 08/22/20 20:01 68 130/56 100 08/22/20 19:31 71 126/55 100 08/22/20 19:01 71 117/72 100 08/22/20 18:31 72 137/59 100 08/22/20 18:01 78 139/71 100 08/22/20 17:30 77 99/44 99 08/22/20 17:01 63 113/34 100 08/22/20 16:31 65 96/45 100 08/22/20 16:01 59 L 127/47 100 08/22/20 15:31 45 L 111/65 100 08/22/20 15:01 54 L 111/65 100 08/22/20 14:30 69 16 113/86 100 08/22/20 14:01 48 L 12 114/91 100 08/22/20 13:31 54 L 22 83/56 99 08/22/20 13:00 134 H 13 117/55 99 08/22/20 12:31 60 15 129/39 98 - Physical Examination General: No Apparent Distress HEENT: Positive: PERRL Neck: Positive: neck supple Cardiac: Positive: Reg Rate and Rhythm Lungs: Positive: Decreased Breath Sounds Neuro: Positive: Weakness Abdomen: Positive: Soft Skin: Positive: Clear Extremities: Absent: edema - Labs and Meds CBC 08/22/20 08/22/20 08/23/20 Range/Units 19:44 21:14 04:32 WBC 7.4 13.7 H 13.6 H (4.5-11.0) K/mm3 RBC 7.02 H 3.80 3.60 L (3.65-5.03) M/mm3 Hgb 19.5 H 10.4 D 9.6 L (10.1-14.3) gm/dl Hct 59.6 H* 32.3 D 30.4 (30.3-42.9) % Plt Count 123 L 346 D 353 (140-440) K/mm3 Lymph # (Auto) 0.6 L (1.2-5.4) K/mm3 [place] # (Auto) 0.5 (0.0-0.8) K/mm3 Eos # (Auto) 0.0 (0.0-0.4) K/mm3 Baso # (Auto) 0.0 (0.0-0.1) K/mm3 Comprehensive Metabolic Panel 08/22/20 08/22/20 08/23/20 Range/Units 19:44 21:14 04:32 Sodium 138 138 142 (137-145) mmol/L Potassium 3.7 3.8 3.6 (3.6-5.0) mmol/L Chloride 110.4 H 108.8 H 111.8 H (98-107) mmol/L Carbon Dioxide 18 L 20 L 24 (22-30) mmol/L BUN 48 H 45 H 42 H (7-17) mg/dL Creatinine 0.8 0.8 0.7 (0.6-1.2) mg/dL Glucose 306 H 286 H 241 H (65-100) mg/dL Calcium 9.0 8.5 8.9 (8.4-10.2) mg/dL - Imaging and Cardiology EKG: report reviewed
--- NOTE | 2020-08-23 12:32 | Progress Note ---
Assessment and Plan Assessment and plan: Acute toxic metabolic encephalopathy: Possibly secondary to infection versus decreased renal function. UTI: Awaiting urine cultures. Continue cefepime per ID recommendation Sepsis: Etiology secondary to above. Acute hypoxic respiratory failure: Currently on 3 L nasal cannula. Unclear if she has discharged on oxygen from bradycardia when she had Covid. History of COVID-19: PCR is positive, likely just noninfectious viral fragments [place]'s disease: On chronic steroids, slightly immunocompromised host PAWAN: Renally dose medications. History Interval history: No new issues overnight Hospitalist Physical - Constitutional Vitals: Temp Pulse Resp BP Pulse Ox 97.9 F 73 22 166/103 99 08/21/20 08:00 08/23/20 05:55 08/23/20 05:55 08/23/20 05:55 08/23/20 05:55 General appearance: Present: no acute distress, well-nourished - EENT Eyes: Present: PERRL, EOM intact ENT: hearing intact, clear oral mucosa, dentition normal - Neck Neck: Present: supple, normal ROM - Respiratory Respiratory effort: normal Respiratory: bilateral: CTA - Cardiovascular Rhythm: regular Heart Sounds: Present: S1 & S2. Absent: gallop, rub - Extremities Extremities: no ischemia, No edema, Full ROM - Abdominal General gastrointestinal: soft, non-tender, non-distended, normal bowel sounds - Integumentary Integumentary: Present: clear, warm, dry - Neurologic Neurologic: CNII-XII intact, moves all extremities HEART Score - HEART Score Troponin: Troponin T 0.075 ng/mL (0.00-0.029) H 08/18/20 18:25 Troponin: 1-3x normal limit - Critical Actions Critical Actions: 4-6 pts:12-16.6% risk of adverse cardiac event. Should be a dmitted Results - Labs CBC & Chem 7: 08/23/20 04:32 08/23/20 04:32 Labs: Laboratory Last Values WBC 13.6 K/mm3 (4.5-11.0) H 08/23/20 04:32 RBC 3.60 M/mm3 (3.65-5.03) L 08/23/20 04:32 Hgb 9.6 gm/dl (10.1-14.3) L 08/23/20 04:32 Hct 30.4 % (30.3-42.9) 08/23/20 04:32 MCV 84 fl (79-97) 08/23/20 04:32 MCH 27 pg (28-32) L 08/23/20 04:32 MCHC 32 % (30-34) 08/23/20 04:32 RDW 15.9 % (13.2-15.2) H 08/23/20 04:32 Plt Count 353 K/mm3 (140-440) 08/23/20 04:32 Lymph % (Auto) 4.5 % (13.4-35.0) L 08/23/20 04:32 [place] % (Auto) 3.5 % (0.0-7.3) 08/23/20 04:32 Eos % (Auto) 0.0 % (0.0-4.3) 08/23/20 04:32 Baso % (Auto) 0.1 % (0.0-1.8) 08/23/20 04:32 Lymph # (Auto) 0.6 K/mm3 (1.2-5.4) L 08/23/20 04:32 [place] # (Auto) 0.5 K/mm3 (0.0-0.8) 08/23/20 04:32 Eos # (Auto) 0.0 K/mm3 (0.0-0.4) 08/23/20 04:32 Baso # (Auto) 0.0 K/mm3 (0.0-0.1) 08/23/20 04:32 Add Manual Diff Complete 08/22/20 21:14 Total Counted 100 08/22/20 21:14 Seg Neutrophils % 91.9 % (40.0-70.0) H 08/23/20 04:32 Seg Neuts % (Manual) 92.0 % (40.0-70.0) H 08/22/20 21:14 Lymphocytes % (Manual) 5.0 % (13.4-35.0) L 08/22/20 21:14 Monocytes % (Manual) 3.0 % (0.0-7.3) 08/22/20 21:14 Nucleated RBC % Not Reportable 08/22/20 21:14 Seg Neutrophils # 12.5 K/mm3 (1.8-7.7) H 08/23/20 04:32 Seg Neutrophils # Man 12.6 K/mm3 (1.8-7.7) H 08/22/20 21:14 Band Neutrophils # 0.0 K/mm3 08/22/20 21:14 Lymphocytes # (Manual) 0.7 K/mm3 (1.2-5.4) L 08/22/20 21:14 Abs React Lymphs (Man) 0.0 K/mm3 08/22/20 21:14 Monocytes # (Manual) 0.4 K/mm3 (0.0-0.8) 08/22/20 21:14 Eosinophils # (Manual) 0.0 K/mm3 (0.0-0.4) 08/22/20 21:14 Basophils # (Manual) 0.0 K/mm3 (0.0-0.1) 08/22/20 21:14 Metamyelocytes # 0.0 K/mm3 08/22/20 21:14 Myelocytes # 0.0 K/mm3 08/22/20 21:14 Promyelocytes # 0.0 K/mm3 08/22/20 21:14 Blast Cells # 0.0 K/mm3 08/22/20 21:14 WBC Morphology Not Reportable 08/22/20 21:14 Hypersegmented Neuts Not Reportable 08/22/20 21:14 Hyposegmented Neuts Not Reportable 08/22/20 21:14 Hypogranular Neuts Not Reportable 08/22/20 21:14 Smudge Cells Not Reportable 08/22/20 21:14 Toxic Granulation Not Reportable 08/22/20 21:14 Toxic Vacuolation Not Reportable 08/22/20 21:14 Dohle Bodies Not Reportable 08/22/20 21:14 Pelger-Huet Anomaly Not Reportable 08/22/20 21:14 Marie Rods Not Reportable 08/22/20 21:14 Platelet Estimate Consistent w auto 08/22/20 21:14 Clumped Platelets Not Reportable 08/22/20 21:14 Plt Clumps, EDTA Not Reportable 08/22/20 21:14 Large Platelets Rare 08/22/20 21:14 Giant Platelets Not Reportable 08/22/20 21:14 Platelet Satelliting Not Reportable 08/22/20 21:14 Plt Morphology Comment Not Reportable 08/22/20 21:14 RBC Morphology Not Reportable 08/22/20 21:14 Dimorphic RBCs Not Reportable 08/22/20 21:14 Polychromasia Not Reportable 08/22/20 21:14 Hypochromasia Not Reportable 08/22/20 21:14 Poikilocytosis Not Reportable 08/22/20 21:14 Anisocytosis Not Reportable 08/22/20 21:14 Microcytosis Not Reportable 08/22/20 21:14 Macrocytosis Not Reportable 08/22/20 21:14 Spherocytes Not Reportable 08/22/20 21:14 Pappenheimer Bodies Not Reportable 08/22/20 21:14 Sickle Cells Not Reportable 08/22/20 21:14 Target Cells Not Reportable 08/22/20 21:14 Tear Drop Cells Not Reportable 08/22/20 21:14 Ovalocytes Rare 08/22/20 21:14 Helmet Cells Not Reportable 08/22/20 21:14 [place] Bodies Not Reportable 08/22/20 21:14 [place] Rings Not Reportable 08/22/20 21:14 [place] Cells Few 08/22/20 21:14 Bite Cells Not Reportable 08/22/20 21:14 Crenated Cell Not Reportable 08/22/20 21:14 Elliptocytes Not Reportable 08/22/20 21:14 Acanthocytes (Spur) Rare 08/22/20 21:14 Rouleaux Not Reportable 08/22/20 21:14 Hemoglobin C Crystals Not Reportable 08/22/20 21:14 Schistocytes Not Reportable 08/22/20 21:14 Malaria parasites Not Reportable 08/22/20 21:14 [place] Bodies Not Reportable 08/22/20 21:14 Hem Pathologist Commnt No 08/22/20 21:14 D-Dimer 2409.74 ng/mlDDU (0-234) H 08/18/20 Unknown Sodium 142 mmol/L (137-145) 08/23/20 04:32 Potassium 3.6 mmol/L (3.6-5.0) 08/23/20 04:32 Chloride 111.8 mmol/L (98-107) H 08/23/20 04:32 Carbon Dioxide 24 mmol/L (22-30) 08/23/20 04:32 Anion Gap 10 mmol/L 08/23/20 04:32 BUN 42 mg/dL (7-17) H 08/23/20 04:32 Creatinine 0.7 mg/dL (0.6-1.2) 08/23/20 04:32 Estimated GFR > 60 ml/min 08/23/20 04:32 BUN/Creatinine Ratio 60 % 08/23/20 04:32 Glucose 241 mg/dL (65-100) H 08/23/20 04:32 POC Glucose 236 mg/dL (70-105) H 08/21/20 01:51 Lactic Acid 1.00 mmol/L (0.7-2.0) 08/18/20 18:25 Calcium 8.9 mg/dL (8.4-10.2) 08/23/20 04:32 Ferritin 1950.0 ng/mL (10.0-200.0) H 08/18/20 15:35 Total Bilirubin 1.10 mg/dL (0.1-1.2) 08/18/20 15:35 AST 38 units/L (5-40) 08/18/20 15:35 ALT 11 units/L (7-56) 08/18/20 15:35 Alkaline Phosphatase 57 units/L (35-129) 08/18/20 15:35 Ammonia 17.0 umol/L (25-60) L 08/18/20 15:35 Lactate Dehydrogenase 228 units/L (91-180) H 08/18/20 15:35 Total Creatine Kinase 164 units/L (30-135) H 08/22/20 19:44 Troponin T 0.075 ng/mL (0.00-0.029) H 08/18/20 18:25 C-Reactive Protein 35.60 mg/dL (0.00-1.30) H 08/18/20 15:35 Total Protein 6.2 g/dL (6.3-8.2) L 08/18/20 15:35 Albumin 2.1 g/dL (3.9-5) L 08/18/20 15:35 Albumin/Globulin Ratio 0.5 % 08/18/20 15:35 Triglycerides 60 mg/dL (2-149) 08/18/20 18:25 Cholesterol 79 mg/dL (50-199) 08/18/20 18:25 LDL Cholesterol Direct 42 mg/dL (50-130) L 08/18/20 18:25 HDL Cholesterol 23 mg/dL (40-59) L 08/18/20 18:25 Cholesterol/HDL Ratio 3.43 % 08/18/20 18:25 Procalcitonin 4.00 ng/mL (<0.15) 08/18/20 15:35 TSH 0.744 mlU/mL (0.270-4.200) 08/18/20 15:35 Urine Color Jacqueline (Yellow) 08/18/20 Unknown Urine Turbidity Hazy (Clear) 08/18/20 Unknown Urine pH 5.0 (5.0-7.0) 08/18/20 Unknown Ur Specific [place] 1.020 (1.003-1.030) 08/18/20 Unknown Urine Protein 30 mg/dl mg/dL (Negative) 08/18/20 Unknown Urine Glucose (UA) 50 mg/dL (Negative) 08/18/20 Unknown Urine Ketones Neg mg/dL (Negative) 08/18/20 Unknown Urine Blood Neg (Negative) 08/18/20 Unknown Urine Nitrite Neg (Negative) 08/18/20 Unknown Urine Bilirubin Neg (Negative) 08/18/20 Unknown Urine Urobilinogen 4.0 mg/dL (<2.0) 08/18/20 Unknown Ur Leukocyte Esterase Tr (Negative) 08/18/20 Unknown Urine WBC (Auto) 41.0 /HPF (0.0-6.0) H 08/18/20 Unknown Urine RBC (Auto) 4.0 /HPF (0.0-6.0) 08/18/20 Unknown U Epithel Cells (Auto) 1.0 /HPF (0-13.0) 08/18/20 Unknown Urine Mucus 3+ /HPF 08/18/20 Unknown Random Vancomycin 9.8 ug/mL (0-40.0) 08/19/20 19:02 Coronavirus (PCR) Positive (Negative) A 08/19/20 08:32 Microbiology: Microbiology 08/18/20 Unknown Peripheral/Venous Blood Culture - Preliminary NO GROWTH AFTER 4 DAYS 08/18/20 Unknown Peripheral/Venous Blood Culture - Preliminary NO GROWTH AFTER 4 DAYS [place]/IV: Voiding Method Indwelling Catheter IV Catheter Type [Left CVL Internal Jugular] IV Catheter Type [Left] CVL Active Medications - Current Medications Current Medications: Generic Name Dose Route Start Last Admin Trade Name Freq PRN Reason Stop Dose Admin Apixaban 2.5 mg 08/21/20 22:00 08/23/20 09:14 Apixaban 2.5 Mg Tab PO 2.5 mg Q12HR BARBARA Administration Protocol Hydrocortisone Sodium Succinate 50 mg 08/21/20 10:00 08/23/20 09:14 Hydrocortisone Sod Succ 100 Mg/2 Ml Vial IV 50 mg Q12HR BARBARA Administration Cefepime HCl 2 gm in 100 mls @ 200 mls/hr 08/22/20 22:00 08/23/20 09:15 Cefepime/Ns 2 Gm/100 Ml IV 200 mls/hr Q12HR BARBARA Administration Protocol Levetiracetam 750 mg 08/22/20 22:00 08/23/20 09:14 Levetiracetam 500 Mg/5 Ml Oral Liqd PO 750 mg BID BARBARA Administration Levothyroxine Sodium 50 mcg 08/24/20 06:00 Levothyroxine 50 Mcg Tab PO DAILY@0600 [facility] Nutrition/Malnutrition Assess - Dietary Evaluation Nutrition/Malnutrition Findings: Nutrition Notes Start: 08/23/20 10:57 Freq: Status: Active Protocol: Document 08/23/20 10:57 ANCELMO (Rec: 08/23/20 11:16 [email or web address] [id number]) Co-Sign 08/23/20 10:57 DIANA Nutrition Notes Need for Assessment generated from: plush cutter Initial or Follow up Assessment Other Pertinent Diagnosis COVID-19 (+), AMS, Mulvane's, UTI Current Diet Pureed Labs/Tests Reviewed Pertinent Medications 1/2NS 75ml/hr Height 5 ft 5 in Weight 74.4 kg [place] Body Weight (kg) 56.81 BMI 27.3 Intake Prior to Admission Poor Weight change and time frame No wt hx available Weight Status Appropriate Subjective/Other Information RN consult for MST 3, skin risk, and chewing difficulty. RN reported coughing during intake, lethargy, severe weakness, and diarrhea. Intake estimated <25%. 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 Burn Absent Trauma Absent GI Symptoms Diarrhea Difficulty In Chewing Usual Diet at Home unknown Skin Integrity/Comment Xavier Score 8 Current % PO Negligible Minimum of two criteria No Energy Intake (severe) < or equal to 50% Estimated Energy Requirement > or equal to 5 days #1 Nutrition Diagnosis Inadequate oral intake Etiology acute on chronic disease As Evidenced by Signs and Symptoms pt reported as lethargic, unable to self feed, and intakes <25%. Is patient on ventilator? No Is Patient Ambulatory and/or Out of Bed No REE-([facility]-confined to bed) 0032.828 Calculation Used for Recommendations [facility] Additional Notes Protein: 75-89g (1-1.2g/kg) Fluid: 2220ml (30ml/kg) Nutrition Intervention Change Diet Order: Recommend TF Nutrition Support: Promote at 65ml/hr Kcal 1,560 Protein (gm) 98 Fluid (mL) 1,309 Goal #1 TF initiated Anticipated Discharge Needs: Unable to determine at this time Follow-Up By: 08/24/20 Additional Comments F/u TF start
--- NOTE | 2020-08-23 13:58 | Progress Note ---
Assessment and Plan Cultures: Blood culture pending Urine culture negative A/P: 80-year-old female past medical history [place]'s disease, hypertension, vitamin D deficiency, seizures admitted with syncopal episode #Acute encephalopathy: Possibly secondary to infection versus decreased renal function. #UTI: Cultures negative #Acute hypoxic respiratory failure: Currently on 3 L nasal cannula. Unclear if she has discharged on oxygen from bradycardia when she had Covid. #History of COVID-19: PCR is positive, likely just noninfectious viral fragments #[place]'s disease: On chronic steroids, slightly immunocompromised host #PAWAN: Renally dose medications. Improved Recs: -Continue cefepime. Stop tomorrow. -Leukocytosis likely secondary to high dose steroids. Thank you for the consult, we will continue to follow. Franklyn Evans MD [facility] O: [phone] F: [phone] Subjective Date of service: 08/23/20 Principal diagnosis: Acute encephalopathy Interval history: Afebrile, white count at 13.6. Remains on cefepime. Objective - Exam Narrative Exam: Physical exam deferred due to PPE conservation strategy. Please refer to primary team's note. - Constitutional Vitals: Vital Signs Temp Pulse Resp BP Pulse Ox 97.2 F L 59 L 18 115/55 99 08/23/20 10:42 08/23/20 10:42 08/23/20 10:42 08/23/20 10:42 08/23/20 10:42 Temperature -Last 24 Hours Temperature 97.2 F - Labs CBC & Chem 7: 08/23/20 04:32 08/23/20 04:32 Labs: Abnormal lab results 08/22/20 08/22/20 08/22/20 Range/Units 19:44 19:44 19:44 WBC (4.5-11.0) K/mm3 RBC 7.02 H (3.65-5.03) M/mm3 Hgb 19.5 H (10.1-14.3) gm/dl Hct 59.6 H* (30.3-42.9) % MCH (28-32) pg RDW 16.2 H (13.2-15.2) % Plt Count 123 L (140-440) K/mm3 Lymph % (Auto) (13.4-35.0) % Lymph # (Auto) (1.2-5.4) K/mm3 Seg Neutrophils % (40.0-70.0) % Seg Neuts % (Manual) (40.0-70.0) % Lymphocytes % (Manual) (13.4-35.0) % Seg Neutrophils # (1.8-7.7) K/mm3 Seg Neutrophils # Man (1.8-7.7) K/mm3 Lymphocytes # (Manual) (1.2-5.4) K/mm3 Chloride 110.4 H (98-107) mmol/L Carbon Dioxide 18 L (22-30) mmol/L BUN 48 H (7-17) mg/dL Glucose 306 H (65-100) mg/dL Total Creatine Kinase 164 H (30-135) units/L 08/22/20 08/22/20 08/23/20 Range/Units 21:14 21:14 04:32 WBC 13.7 H 13.6 H (4.5-11.0) K/mm3 RBC 3.60 L (3.65-5.03) M/mm3 Hgb 9.6 L (10.1-14.3) gm/dl Hct (30.3-42.9) % MCH 27 L 27 L (28-32) pg RDW 15.5 H 15.9 H (13.2-15.2) % Plt Count (140-440) K/mm3 Lymph % (Auto) 4.5 L (13.4-35.0) % Lymph # (Auto) 0.6 L (1.2-5.4) K/mm3 Seg Neutrophils % 91.9 H (40.0-70.0) % Seg Neuts % (Manual) 92.0 H (40.0-70.0) % Lymphocytes % (Manual) 5.0 L (13.4-35.0) % Seg Neutrophils # 12.5 H (1.8-7.7) K/mm3 Seg Neutrophils # Man 12.6 H (1.8-7.7) K/mm3 Lymphocytes # (Manual) 0.7 L (1.2-5.4) K/mm3 Chloride 108.8 H (98-107) mmol/L Carbon Dioxide 20 L (22-30) mmol/L BUN 45 H (7-17) mg/dL Glucose 286 H (65-100) mg/dL Total Creatine Kinase (30-135) units/L 08/23/20 Range/Units 04:32 WBC (4.5-11.0) K/mm3 RBC (3.65-5.03) M/mm3 Hgb (10.1-14.3) gm/dl Hct (30.3-42.9) % MCH (28-32) pg RDW (13.2-15.2) % Plt Count (140-440) K/mm3 Lymph % (Auto) (13.4-35.0) % Lymph # (Auto) (1.2-5.4) K/mm3 Seg Neutrophils % (40.0-70.0) % Seg Neuts % (Manual) (40.0-70.0) % Lymphocytes % (Manual) (13.4-35.0) % Seg Neutrophils # (1.8-7.7) K/mm3 Seg Neutrophils # Man (1.8-7.7) K/mm3 Lymphocytes # (Manual) (1.2-5.4) K/mm3 Chloride 111.8 H (98-107) mmol/L Carbon Dioxide (22-30) mmol/L BUN 42 H (7-17) mg/dL Glucose 241 H (65-100) mg/dL Total Creatine Kinase (30-135) units/L
[2020-08-23] MEDS ORDERED: ATROPINE 1 MG/ML VIAL IV PRN (16:56)
[2020-08-23] MEDS ORDERED: SODIUM CHLORIDE 0.9% 500 ML 500 ML IV ONE (17:30)
[2020-08-24] MEDS ORDERED: LEVOTHYROXINE 50 MCG TAB PO SCH (06:00)
[2020-08-24 06:06] LABS: Hematocrit 31.6 % (30.3-42.9); Hemoglobin 10.1 gm/dl (10.1-14.3); Mean Corpuscular HGB Conc 32 % (30-34); Mean Corpuscular Volume 86 fl (79-97); Platelet Count 337 K/mm3 (140-440); Red Blood Count 3.68 M/mm3 (3.65-5.03); Red Cell Distribution Width 16.2 % (13.2-15.2)
[2020-08-24 06:18] LABS: Blood Urea Nitrogen 37 mg/dL (7-17); Calcium 8.8 mg/dL (8.4-10.2); Hemolysis Index 19
[2020-08-24 06:23] LABS: BUN/Creatinine Ratio 62
--- NOTE | 2020-08-24 09:25 | Progress Note ---
Assessment and Plan Assessment and plan: Acute toxic metabolic encephalopathy: Possibly secondary to infection versus decreased renal function. UTI: Awaiting urine cultures. Continue cefepime per ID recommendation Sepsis: Etiology secondary to above. Acute hypoxic respiratory failure: Currently on 3 L nasal cannula. Unclear if she has discharged on oxygen from bradycardia when she had Covid. 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 08/24/2019. Patient still mildly confused. However, I suspect patient has underlying Alzheimer's dementia and this is her baseline. I discussed plan of care and altered mentation with sister at [phone]. Patient will need DME of hospital bed and oxygen for discharge home. Await physical therapy recommendations. History Interval history: No new issues overnight Hospitalist Physical - Constitutional Vitals: Temp Pulse Resp BP Pulse Ox 97.5 F L 73 18 124/52 99 08/24/20 06:21 08/24/20 06:21 08/24/20 06:21 08/24/20 06:21 08/24/20 06:21 General appearance: Present: no acute distress, well-nourished - EENT Eyes: Present: PERRL, EOM intact ENT: hearing intact, clear oral mucosa, dentition normal - Neck Neck: Present: supple, normal ROM - Respiratory Respiratory effort: normal Respiratory: bilateral: CTA - Cardiovascular Rhythm: regular Heart Sounds: Present: S1 & S2. Absent: gallop, rub - Extremities Extremities: no ischemia, No edema, Full ROM - Abdominal General gastrointestinal: soft, non-tender, non-distended, normal bowel sounds - Integumentary Integumentary: Present: clear, warm, dry - Neurologic Neurologic: CNII-XII intact, moves all extremities HEART Score - HEART Score Troponin: Troponin T 0.075 ng/mL (0.00-0.029) H 08/18/20 18:25 Troponin: 1-3x normal limit - Critical Actions Critical Actions: 4-6 pts:12-16.6% risk of adverse cardiac event. Should be admitted Results - Labs CBC & Chem 7: 08/24/20 05:05 08/24/20 05:05 Labs: Laboratory Last Values WBC 13.6 K/mm3 (4.5-11.0) H 08/24/20 05:05 RBC 3.68 M/mm3 (3.65-5.03) 08/24/20 05:05 Hgb 10.1 gm/dl (10.1-14.3) 08/24/20 05:05 Hct 31.6 % (30.3-42.9) 08/24/20 05:05 MCV 86 fl (79-97) 08/24/20 05:05 MCH 27 pg (28-32) L 08/24/20 05:05 MCHC 32 % (30-34) 08/24/20 05:05 RDW 16.2 % (13.2-15.2) H 08/24/20 05:05 Plt Count 337 K/mm3 (140-440) 08/24/20 05:05 Lymph % (Auto) 4.5 % (13.4-35.0) L 08/23/20 04:32 Glynn % (Auto) 3.5 % (0.0-7.3) 08/23/20 04:32 Eos % (Auto) 0.0 % (0.0-4.3) 08/23/20 04:32 Baso % (Auto) 0.1 % (0.0-1.8) 08/23/20 04:32 Lymph # (Auto) 0.6 K/mm3 (1.2-5.4) L 08/23/20 04:32 Glynn # (Auto) 0.5 K/mm3 (0.0-0.8) 08/23/20 04:32 Eos # (Auto) 0.0 K/mm3 (0.0-0.4) 08/23/20 04:32 Baso # (Auto) 0.0 K/mm3 (0.0-0.1) 08/23/20 04:32 Add Manual Diff Complete 08/22/20 21:14 Total Counted 100 08/22/20 21:14 Seg Neutrophils % 91.9 % (40.0-70.0) H 08/23/20 04:32 Seg Neuts % (Manual) 92.0 % (40.0-70.0) H 08/22/20 21:14 Lymphocytes % (Manual) 5.0 % (13.4-35.0) L 08/22/20 21:14 Monocytes % (Manual) 3.0 % (0.0-7.3) 08/22/20 21:14 Nucleated RBC % Not Reportable 08/22/20 21:14 Seg Neutrophils # 12.5 K/mm3 (1.8-7.7) H 08/23/20 04:32 Seg Neutrophils # Man 12.6 K/mm3 (1.8-7.7) H 08/22/20 21:14 Band Neutrophils # 0.0 K/mm3 08/22/20 21:14 Lymphocytes # (Manual) 0.7 K/mm3 (1.2-5.4) L 08/22/20 21:14 Abs React Lymphs (Man) 0.0 K/mm3 08/22/20 21:14 Monocytes # (Manual) 0.4 K/mm3 (0.0-0.8) 08/22/20 21:14 Eosinophils # (Manual) 0.0 K/mm3 (0.0-0.4) 08/22/20 21:14 Basophils # (Manual) 0.0 K/mm3 (0.0-0.1) 08/22/20 21:14 Metamyelocytes # 0.0 K/mm3 08/22/20 21:14 Myelocytes # 0.0 K/mm3 08/22/20 21:14 Promyelocytes # 0.0 K/mm3 08/22/20 21:14 Blast Cells # 0.0 K/mm3 08/22/20 21:14 WBC Morphology Not Reportable 08/22/20 21:14 Hypersegmented Neuts Not Reportable 08/22/20 21:14 Hyposegmented Neuts Not Reportable 08/22/20 21:14 Hypogranular Neuts Not Reportable 08/22/20 21:14 Smudge Cells Not Reportable 08/22/20 21:14 Toxic Granulation Not Reportable 08/22/20 21:14 Toxic Vacuolation Not Reportable 08/22/20 21:14 Dohle Bodies Not Reportable 08/22/20 21:14 Pelger-Huet Anomaly Not Reportable 08/22/20 21:14 Marie Rods Not Reportable 08/22/20 21:14 Platelet Estimate Consistent w auto 08/22/20 21:14 Clumped Platelets Not Reportable 08/22/20 21:14 Plt Clumps, EDTA Not Reportable 08/22/20 21:14 Large Platelets Rare 08/22/20 21:14 Giant Platelets Not Reportable 08/22/20 21:14 Platelet Satelliting Not Reportable 08/22/20 21:14 Plt Morphology Comment Not Reportable 08/22/20 21:14 RBC Morphology Not Reportable 08/22/20 21:14 Dimorphic RBCs Not Reportable 08/22/20 21:14 Polychromasia Not Reportable 08/22/20 21:14 Hypochromasia Not Reportable 08/22/20 21:14 Poikilocytosis Not Reportable 08/22/20 21:14 Anisocytosis Not Reportable 08/22/20 21:14 Microcytosis Not Reportable 08/22/20 21:14 Macrocytosis Not Reportable 08/22/20 21:14 Spherocytes Not Reportable 08/22/20 21:14 Pappenheimer Bodies Not Reportable 08/22/20 21:14 Sickle Cells Not Reportable 08/22/20 21:14 Target Cells Not Reportable 08/22/20 21:14 Tear Drop Cells Not Reportable 08/22/20 21:14 Ovalocytes Rare 08/22/20 21:14 Helmet Cells Not Reportable 08/22/20 21:14 [place] Bodies Not Reportable 08/22/20 21:14 [place] Rings Not Reportable 08/22/20 21:14 Rogers Cells Few 08/22/20 21:14 Bite Cells Not Reportable 08/22/20 21:14 Crenated Cell Not Reportable 08/22/20 21:14 Elliptocytes Not Reportable 08/22/20 21:14 Acanthocytes (Spur) Rare 08/22/20 21:14 Rouleaux Not Reportable 08/22/20 21:14 Hemoglobin C Crystals Not Reportable 08/22/20 21:14 Schistocytes Not Reportable 08/22/20 21:14 Malaria parasites Not Reportable 08/22/20 21:14 Payam Bodies Not Reportable 08/22/20 21:14 Hem Pathologist Commnt No 08/22/20 21:14 D-Dimer 2409.74 ng/mlDDU (0-234) H 08/18/20 Unknown Sodium 145 mmol/L (137-145) 08/24/20 05:05 Potassium 3.6 mmol/L (3.6-5.0) 08/24/20 05:05 Chloride 115.4 mmol/L (98-107) H 08/24/20 05:05 Carbon Dioxide 24 mmol/L (22-30) 08/24/20 05:05 Anion Gap 9 mmol/L 08/24/20 05:05 BUN 37 mg/dL (7-17) H 08/24/20 05:05 Creatinine 0.6 mg/dL (0.6-1.2) 08/24/20 05:05 Estimated GFR > 60 ml/min 08/24/20 05:05 BUN/Creatinine Ratio 62 % 08/24/20 05:05 Glucose 185 mg/dL (65-100) H 08/24/20 05:05 POC Glucose 206 mg/dL (70-105) H 08/23/20 15:31 Lactic Acid 1.00 mmol/L (0.7-2.0) 08/18/20 18:25 Calcium 8.8 mg/dL (8.4-10.2) 08/24/20 05:05 Ferritin 1950.0 ng/mL (10.0-200.0) H 08/18/20 15:35 Total Bilirubin 1.10 mg/dL (0.1-1.2) 08/18/20 15:35 AST 38 units/L (5-40) 08/18/20 15:35 ALT 11 units/L (7-56) 08/18/20 15:35 Alkaline Phosphatase 57 units/L (35-129) 08/18/20 15:35 Ammonia 17.0 umol/L (25-60) L 08/18/20 15:35 Lactate Dehydrogenase 228 units/L (91-180) H 08/18/20 15:35 Total Creatine Kinase 164 units/L (30-135) H 08/22/20 19:44 Troponin T 0.075 ng/mL (0.00-0.029) H 08/18/20 18:25 C-Reactive Protein 35.60 mg/dL (0.00-1.30) H 08/18/20 15:35 Total Protein 6.2 g/dL (6.3-8.2) L 08/18/20 15:35 Albumin 2.1 g/dL (3.9-5) L 08/18/20 15:35 Albumin/Globulin Ratio 0.5 % 08/18/20 15:35 Triglycerides 60 mg/dL (2-149) 08/18/20 18:25 Cholesterol 79 mg/dL (50-199) 08/18/20 18:25 LDL Cholesterol Direct 42 mg/dL (50-130) L 08/18/20 18:25 HDL Cholesterol 23 mg/dL (40-59) L 08/18/20 18:25 Cholesterol/HDL Ratio 3.43 % 08/18/20 18:25 Procalcitonin 4.00 ng/mL (<0.15) 08/18/20 15:35 TSH 0.744 mlU/mL (0.270-4.200) 08/18/20 15:35 Urine Color Jacqueline (Yellow) 08/18/20 Unknown Urine Turbidity Hazy (Clear) 08/18/20 Unknown Urine pH 5.0 (5.0-7.0) 08/18/20 Unknown Ur Specific [place] 1.020 (1.003-1.030) 08/18/20 Unknown Urine Protein 30 mg/dl mg/dL (Negative) 08/18/20 Unknown Urine Glucose (UA) 50 mg/dL (Negative) 08/18/20 Unknown Urine Ketones Neg mg/dL (Negative) 08/18/20 Unknown Urine Blood Neg (Negative) 08/18/20 Unknown Urine Nitrite Neg (Negative) 08/18/20 Unknown Urine Bilirubin Neg (Negative) 08/18/20 Unknown Urine Urobilinogen 4.0 mg/dL (<2.0) 08/18/20 Unknown Ur Leukocyte Esterase Tr (Negative) 08/18/20 Unknown Urine WBC (Auto) 41.0 /HPF (0.0-6.0) H 08/18/20 Unknown Urine RBC (Auto) 4.0 /HPF (0.0-6.0) 08/18/20 Unknown U Epithel Cells (Auto) 1.0 /HPF (0-13.0) 08/18/20 Unknown Urine Mucus 3+ /HPF 08/18/20 Unknown Random Vancomycin 9.8 ug/mL (0-40.0) 08/19/20 19:02 Coronavirus (PCR) Positive (Negative) A 08/19/20 08:32 Microbiology: Microbiology 08/18/20 Unknown Peripheral/Venous Blood Culture - Final NO GROWTH AFTER 5 DAYS 08/18/20 Unknown Peripheral/Venous Blood Culture - Final NO GROWTH AFTER 5 DAYS [place]/IV: Voiding Method Indwelling Catheter IV Catheter Type [Left CVL Internal Jugular] IV Catheter Type [Left] CVL Active Medications - Current Medications Current Medications: Generic Name Dose Route Start Last Admin Trade Name Freq PRN Reason Stop Dose Admin Apixaban 2.5 mg 08/21/20 22:00 08/23/20 21:29 Apixaban 2.5 Mg Tab PO Not Given Q12HR [facility] Protocol Atropine Sulfate 1 mg 08/23/20 16:56 Atropine 1 Mg/Ml Vial IV PRN PRN Bradycardia Hydrocortisone Sodium Succinate 50 mg 08/21/20 10:00 08/23/20 21:19 Hydrocortisone Sod Succ 100 Mg/2 Ml Vial IV 50 mg Q12HR [facility] Administration Cefepime HCl 2 gm in 100 mls @ 200 mls/hr 08/22/20 22:00 08/23/20 21:19 Cefepime/Ns 2 Gm/100 Ml IV 200 mls/hr Q12HR [facility]BARA Administration Protocol Levetiracetam 750 mg 08/22/20 22:00 08/23/20 21:29 Levetiracetam 500 Mg/5 Ml Oral Liqd PO Not Given BID [facility] Levothyroxine Sodium 50 mcg 08/24/20 06:00 08/24/20 05:54 Levothyroxine 50 Mcg Tab PO Not Given DAILY@0600 [facility] Nutrition/Malnutrition Assess - Dietary Evaluation Nutrition/Malnutrition Findings: Nutrition Notes Start: 08/23/20 10:57 Freq: Status: Active Protocol: Document 08/23/20 10:57 ANCELMO (Rec: 08/23/20 11:16 [email or web address] [id number]) Co-Sign 08/23/20 10:57 Nutrition Notes Need for Assessment 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 RN reported coughing during intake, lethargy, severe weakness, and diarrhea. Intake estimated <25%. No [employer] SU[employer]OR report d/t lethargy. Spoke to RN to recommend TF. Burn Absent Trauma Absent GI Symptoms Diarrhea Difficulty In Chewing Usual Diet at Home unknown Skin Integrity/Comment Xavier Score 8 Current % PO Negligible Minimum of two criteria No Energy Intake (severe) < or equal to 50% Estimated Energy Requirement > or equal to 5 days #1 Nutrition Diagnosis Inadequate oral intake Etiology acute on chronic disease As Evidenced by Signs and Symptoms pt reported as lethargic, unable to self feed, and intakes <25%. Is patient on ventilator? No Is Patient Ambulatory and/or Out of Bed No REE-([place]-St[place] Jeor-confined to bed) [phone] Calculation Used for Recommendations [facility] Additional Notes Protein: 75-89g (1-1.2g/kg) Fluid: 2220ml (30ml/kg) Nutrition Intervention Change Diet Order: Recommend TF Nutrition Support: Promote at 65ml/hr Kcal 1,560 Protein (gm) 98 Fluid (mL) 1,309 Goal #1 Pt to meet >75% of energy and protein needs by mouth or initiate TF Anticipated Discharge Needs: Unable to determine at this time Follow-Up By: 08/24/20 Additional Comments F/u TF start
[2020-08-24] MEDS: CEFEPIME/NS 2 GM/100 ML 2 GM/100 ML BAG IV SCH (12:06)
[2020-08-24] MEDS: HYDROCORTISONE SOD SUCC 100 MG/2 ML VIAL IV SCH ×2 (12:06→21:57)
[2020-08-24] MEDS: LEVOTHYROXINE 100 MCG INJ IV SCH (13:25)
[2020-08-24] MEDS: levETIRAcetam 750 MG in DEXTROSE 5% IN WATER 100 ML IV SCH ×2 (13:26→21:56)
[2020-08-24] MEDS ORDERED: ENOXAPARIN 100 MG/1 ML INJ SUB-Q SCH (14:00)
[2020-08-24] MEDS: ENOXAPARIN 80 MG/0.8 ML INJ SUB-Q SCH ×2 (15:00→21:57)
--- NOTE | 2020-08-24 20:16 | Progress Note ---
Assessment and Plan Cultures: Blood culture pending Urine culture negative A/P: 80-year-old female past medical history Richardson's disease, hypertension, vitamin D deficiency, seizures admitted with syncopal episode #Acute encephalopathy: Possibly secondary to infection versus decreased renal function. #UTI: Cultures negative #Acute hypoxic respiratory failure: Currently on 3 L nasal cannula. Unclear if she has discharged on oxygen from bradycardia when she had Covid. 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 Improved Recs: -Stop cefepime today. -Leukocytosis likely secondary to high dose steroids. Thank you for the consult, we will sign off. Please call with any new questions. Franklyn Evans MD [facility] ([facility]) O: [phone] F: [phone] Subjective Date of service: 08/24/20 Principal diagnosis: Acute encephalopathy Interval history: Afebrile, persistent white count of 13.6. Objective - Exam Narrative Exam: Physical exam deferred due to PPE conservation strategy. Please refer to primary team's note. - Constitutional Vitals: Vital Signs Temp Pulse Resp BP Pulse Ox 98.2 F 73 22 145/64 99 08/24/20 17:55 08/24/20 17:55 08/24/20 17:55 08/24/20 17:55 08/24/20 17:55 Temperature -Last 24 Hours Temperature 98.2 F Temperature 97.6 F Temperature 97.5 F Temperature 97.3 F - Labs CBC & Chem 7: 08/24/20 05:05 08/24/20 05:05 Labs: Abnormal lab results 08/24/20 08/24/20 08/24/20 Range/Units 05:05 05:05 17:02 WBC 13.6 H (4.5-11.0) K/mm3 MCH 27 L (28-32) pg RDW 16.2 H (13.2-15.2) % Chloride 115.4 H (98-107) mmol/L BUN 37 H (7-17) mg/dL Glucose 185 H (65-100) mg/dL TSH 0.056 L (0.270-4.200) mlU/mL Coronavirus (PCR) (Negative) 08/24/20 Range/Units Unknown WBC (4.5-11.0) K/mm3 MCH (28-32) pg RDW (13.2-15.2) % Chloride (98-107) mmol/L BUN (7-17) mg/dL Glucose (65-100) mg/dL TSH (0.270-4.200) mlU/mL Coronavirus (PCR) Positive A (Negative)
[2020-08-25] MEDS: LEVOTHYROXINE 100 MCG INJ IV SCH (06:11)
[2020-08-25 06:17] LABS: Hematocrit 30.9 % (30.3-42.9); Mean Corpuscular HGB Conc 32 % (30-34); Mean Corpuscular Volume 84 fl (79-97); Platelet Count 341 K/mm3 (140-440); Red Blood Count 3.66 M/mm3 (3.65-5.03); Red Cell Distribution Width 15.8 % (13.2-15.2)
[2020-08-25 06:36] LABS: Blood Urea Nitrogen 34 mg/dL (7-17); Calcium 8.9 mg/dL (8.4-10.2); Hemolysis Index 3
[2020-08-25 06:45] LABS: BUN/Creatinine Ratio 57
--- NOTE | 2020-08-25 08:24 | Progress Note ---
Assessment and Plan Assessment and plan: Acute toxic metabolic encephalopathy: Possibly secondary to infection versus decreased renal function. UTI: Awaiting urine cultures. Continue cefepime per ID recommendation Sepsis: Etiology secondary to above. Acute hypoxic respiratory failure: Currently on 3 L nasal cannula. Unclear if she has discharged on oxygen from bradycardia when she had Covid. History of COVID-19: PCR is positive, likely just noninfectious viral fragments [place]'s disease: On chronic steroids, slightly immunocompromised host PAWAN: Renally dose medications. 08/24/2019. Patient still mildly confused. However, I suspect patient has underlying Alzheimer's dementia and this is her baseline. I discussed plan of care and altered mentation with sister at [phone]. Patient will need DME of hospital bed and oxygen for discharge home. Await physical therapy recommendations. 08/25/2019. Patient still lethargic and confused. Patient receiving hydrocortisone 50 mg IV twice daily for adrenal insufficiency. Check B12, folate and ammonia levels. Neurology consultation pending. Continue supplemental oxygen to maintain sats greater than 92%. History Interval history: No new issues overnight. Patient still lethargic and confused. Hospitalist Physical - Constitutional Vitals: Temp Pulse Resp BP Pulse Ox 97.7 F 63 20 151/73 100 08/25/20 04:39 08/25/20 04:39 08/25/20 04:39 08/25/20 04:39 08/25/20 04:39 General appearance: Present: no acute distress, well-nourished, other (Lethargic and confused) - EENT Eyes: Present: PERRL, EOM intact ENT: hearing intact, clear oral mucosa, dentition normal - Neck Neck: Present: supple, normal ROM - Respiratory Respiratory effort: normal Respiratory: bilateral: CTA - Cardiovascular Rhythm: regular Heart Sounds: Present: S1 & S2. Absent: gallop, rub - Extremities Extremities: no ischemia, No edema, Full ROM - Abdominal General gastrointestinal: soft, non-tender, non-distended, normal bowel sounds - Integumentary Integumentary: Present: clear, warm, dry - Neurologic Neurologic: CNII-XII intact, moves all extremities HEART Score - HEART Score Troponin: Troponin T 0.075 ng/mL (0.00-0.029) H 08/18/20 18:25 Troponin: 1-3x normal limit - Critical Actions Critical Actions: 4-6 pts:12-16.6% risk of adverse cardiac event. Should be admitted Results - Labs CBC & Chem 7: 08/25/20 05:43 08/25/20 05:43 Labs: Laboratory Last Values WBC 16.7 K/mm3 (4.5-11.0) H 08/25/20 05:43 RBC 3.66 M/mm3 (3.65-5.03) 08/25/20 05:43 Hgb 10.0 gm/dl (10.1-14.3) L 08/25/20 05:43 Hct 30.9 % (30.3-42.9) 08/25/20 05:43 MCV 84 fl (79-97) 08/25/20 05:43 MCH 27 pg (28-32) L 08/25/20 05:43 MCHC 32 % (30-34) 08/25/20 05:43 RDW 15.8 % (13.2-15.2) H 08/25/20 05:43 Plt Count 341 K/mm3 (140-440) 08/25/20 05:43 Lymph % (Auto) 4.5 % (13.4-35.0) L 08/23/20 04:32 [place] % (Auto) 3.5 % (0.0-7.3) 08/23/20 04:32 Eos % (Auto) 0.0 % (0.0-4.3) 08/23/20 04:32 Baso % (Auto) 0.1 % (0.0-1.8) 08/23/20 04:32 Lymph # (Auto) 0.6 K/mm3 (1.2-5.4) L 08/23/20 04:32 [place] # (Auto) 0.5 K/mm3 (0.0-0.8) 08/23/20 04:32 Eos # (Auto) 0.0 K/mm3 (0.0-0.4) 08/23/20 04:32 Baso # (Auto) 0.0 K/mm3 (0.0-0.1) 08/23/20 04:32 Add Manual Diff Complete 08/22/20 21:14 Total Counted 100 08/22/20 21:14 Seg Neutrophils % 91.9 % (40.0-70.0) H 08/23/20 04:32 Seg Neuts % (Manual) 92.0 % (40.0-70.0) H 08/22/20 21:14 Lymphocytes % (Manual) 5.0 % (13.4-35.0) L 08/22/20 21:14 Monocytes % (Manual) 3.0 % (0.0-7.3) 08/22/20 21:14 Nucleated RBC % Not Reportable 08/22/20 21:14 Seg Neutrophils # 12.5 K/mm3 (1.8-7.7) H 08/23/20 04:32 Seg Neutrophils # Man 12.6 K/mm3 (1.8-7.7) H 08/22/20 21:14 Band Neutrophils # 0.0 K/mm3 08/22/20 21:14 Lymphocytes # (Manual) 0.7 K/mm3 (1.2-5.4) L 08/22/20 21:14 Abs React Lymphs (Man) 0.0 K/mm3 08/22/20 21:14 Monocytes # (Manual) 0.4 K/mm3 (0.0-0.8) 08/22/20 21:14 Eosinophils # (Manual) 0.0 K/mm3 (0.0-0.4) 08/22/20 21:14 Basophils # (Manual) 0.0 K/mm3 (0.0-0.1) 08/22/20 21:14 Metamyelocytes # 0.0 K/mm3 08/22/20 21:14 Myelocytes # 0.0 K/mm3 08/22/20 21:14 Promyelocytes # 0.0 K/mm3 08/22/20 21:14 Blast Cells # 0.0 K/mm3 08/22/20 21:14 WBC Morphology Not Reportable 08/22/20 21:14 Hypersegmented Neuts Not Reportable 08/22/20 21:14 Hyposegmented Neuts Not Reportable 08/22/20 21:14 Hypogranular Neuts Not Reportable 08/22/20 21:14 Smudge Cells Not Reportable 08/22/20 21:14 Toxic Granulation Not Reportable 08/22/20 21:14 Toxic Vacuolation Not Reportable 08/22/20 21:14 Dohle Bodies Not Reportable 08/22/20 21:14 Pelger-Huet Anomaly Not Reportable 08/22/20 21:14 Marie Rods Not Reportable 08/22/20 21:14 Platelet Estimate Consistent w auto 08/22/20 21:14 Clumped Platelets Not Reportable 08/22/20 21:14 Plt Clumps, EDTA Not Reportable 08/22/20 21:14 Large Platelets Rare 08/22/20 21:14 Giant Platelets Not Reportable 08/22/20 21:14 Platelet Satelliting Not Reportable 08/22/20 21:14 Plt Morphology Comment Not Reportable 08/22/20 21:14 RBC Morphology Not Reportable 08/22/20 21:14 Dimorphic RBCs Not Reportable 08/22/20 21:14 Polychromasia Not Reportable 08/22/20 21:14 Hypochromasia Not Reportable 08/22/20 21:14 Poikilocytosis Not Reportable 08/22/20 21:14 Anisocytosis Not Reportable 08/22/20 21:14 Microcytosis Not Reportable 08/22/20 21:14 Macrocytosis Not Reportable 08/22/20 21:14 Spherocytes Not Reportable 08/22/20 21:14 Pappenheimer Bodies Not Reportable 08/22/20 21:14 Sickle Cells Not Reportable 08/22/20 21:14 Target Cells Not Reportable 08/22/20 21:14 Tear Drop Cells Not Reportable 08/22/20 21:14 Ovalocytes Rare 08/22/20 21:14 Helmet Cells Not Reportable 08/22/20 21:14 [place] Bodies Not Reportable 08/22/20 21:14 [place] Rings Not Reportable 08/22/20 21:14 [place] Cells Few 08/22/20 21:14 Bite Cells Not Reportable 08/22/20 21:14 Crenated Cell Not Reportable 08/22/20 21:14 Elliptocytes Not Reportable 08/22/20 21:14 Acanthocytes (Spur) Rare 08/22/20 21:14 Rouleaux Not Reportable 08/22/20 21:14 Hemoglobin C Crystals Not Reportable 08/22/20 21:14 Schistocytes Not Reportable 08/22/20 21:14 Malaria parasites Not Reportable 08/22/20 21:14 [place] Bodies Not Reportable 08/22/20 21:14 Hem Pathologist Commnt No 08/22/20 21:14 D-Dimer 2409.74 ng/mlDDU (0-234) H 08/18/20 Unknown Sodium 146 mmol/L (137-145) H 08/25/20 05:43 Potassium 3.6 mmol/L (3.6-5.0) 08/25/20 05:43 Chloride 114.6 mmol/L (98-107) H 08/25/20 05:43 Carbon Dioxide 26 mmol/L (22-30) 08/25/20 05:43 Anion Gap 9 mmol/L 08/25/20 05:43 BUN 34 mg/dL (7-17) H 08/25/20 05:43 Creatinine 0.6 mg/dL (0.6-1.2) 08/25/20 05:43 Estimated GFR > 60 ml/min 08/25/20 05:43 BUN/Creatinine Ratio 57 % 08/25/20 05:43 Glucose 167 mg/dL (65-100) H 08/25/20 05:43 POC Glucose 206 mg/dL (70-105) H 08/23/20 15:31 Lactic Acid 1.00 mmol/L (0.7-2.0) 08/18/20 18:25 Calcium 8.9 mg/dL (8.4-10.2) 08/25/20 05:43 Ferritin 1950.0 ng/mL (10.0-200.0) H 08/18/20 15:35 Total Bilirubin 1.10 mg/dL (0.1-1.2) 08/18/20 15:35 AST 38 units/L (5-40) 08/18/20 15:35 ALT 11 units/L (7-56) 08/18/20 15:35 Alkaline Phosphatase 57 units/L (35-129) 08/18/20 15:35 Ammonia 17.0 umol/L (25-60) L 08/18/20 15:35 Lactate Dehydrogenase 228 units/L (91-180) H 08/18/20 15:35 Total Creatine Kinase 164 units/L (30-135) H 08/22/20 19:44 Troponin T 0.075 ng/mL (0.00-0.029) H 08/18/20 18:25 C-Reactive Protein 35.60 mg/dL (0.00-1.30) H 08/18/20 15:35 Total Protein 6.2 g/dL (6.3-8.2) L 08/18/20 15:35 Albumin 2.1 g/dL (3.9-5) L 08/18/20 15:35 Albumin/Globulin Ratio 0.5 % 08/18/20 15:35 Triglycerides 60 mg/dL (2-149) 08/18/20 18:25 Cholesterol 79 mg/dL (50-199) 08/18/20 18:25 LDL Cholesterol Direct 42 mg/dL (50-130) L 08/18/20 18:25 HDL Cholesterol 23 mg/dL (40-59) L 08/18/20 18:25 Cholesterol/HDL Ratio 3.43 % 08/18/20 18:25 Procalcitonin 4.00 ng/mL (<0.15) 08/18/20 15:35 TSH 0.056 mlU/mL (0.270-4.200) L 08/24/20 17:02 Urine Color Jacqueline (Yellow) 08/18/20 Unknown Urine Turbidity Hazy (Clear) 08/18/20 Unknown Urine pH 5.0 (5.0-7.0) 08/18/20 Unknown Ur Specific [place] 1.020 (1.003-1.030) 08/18/20 Unknown Urine Protein 30 mg/dl mg/dL (Negative) 08/18/20 Unknown Urine Glucose (UA) 50 mg/dL (Negative) 08/18/20 Unknown Urine Ketones Neg mg/dL (Negative) 08/18/20 Unknown Urine Blood Neg (Negative) 08/18/20 Unknown Urine Nitrite Neg (Negative) 08/18/20 Unknown Urine Bilirubin Neg (Negative) 08/18/20 Unknown Urine Urobilinogen 4.0 mg/dL (<2.0) 08/18/20 Unknown Ur Leukocyte Esterase Tr (Negative) 08/18/20 Unknown Urine WBC (Auto) 41.0 /HPF (0.0-6.0) H 08/18/20 Unknown Urine RBC (Auto) 4.0 /HPF (0.0-6.0) 08/18/20 Unknown U Epithel Cells (Auto) 1.0 /HPF (0-13.0) 08/18/20 Unknown Urine Mucus 3+ /HPF 08/18/20 Unknown Random Vancomycin 9.8 ug/mL (0-40.0) 08/19/20 19:02 Coronavirus (PCR) Positive (Negative) A 08/24/20 Unknown [place]/IV: Voiding Method Indwelling Catheter IV Catheter Type [Left CVL Internal Jugular] IV Catheter Type [Left] CVL Active Medications - Current Medications Current Medications: Generic Name Dose Route Start Last Admin Trade Name Freq PRN Reason Stop Dose Admin Atropine Sulfate 1 mg 08/23/20 16:56 Atropine 1 Mg/Ml Vial IV PRN PRN Bradycardia Enoxaparin Sodium 70 mg 08/24/20 14:30 08/24/20 21:57 Enoxaparin 80 Mg/0.8 Ml Inj SUB-Q 70 mg Q12HR BARBARA Administration Hydrocortisone Sodium Succinate 50 mg 08/21/20 10:00 08/24/20 21:57 Hydrocortisone Sod Succ 100 Mg/2 Ml Vial IV 50 mg Q12HR BARBARA Administration Levetiracetam 750 mg/ Dextrose 107.5 mls @ 400 mls/hr 08/24/20 12:00 08/24/20 21:56 IV 400 mls/hr Q12HR BARBARA Administration Levothyroxine Sodium 25 mcg 08/24/20 13:00 08/25/20 06:11 Levothyroxine 100 Mcg Inj IV 25 mcg DAILY@0600 BARBARA Administration Nutrition/Malnutrition Assess - Dietary Evaluation Nutrition/Malnutrition Findings: Nutrition Notes Start: 08/23/20 10:57 Freq: Status: Active Protocol: Document 08/23/20 10:57 ANCELMO (Rec: 08/23/20 11:16 [email or web address] [id number]) Co-Sign 08/23/20 10:57 MK Nutrition Notes Need for Assessment 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 RN reported coughing during intake, lethargy, severe weakness, and diarrhea. Intake estimated <25%. 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 Spoke to RN to recommend TF. Burn Absent Trauma Absent GI Symptoms Diarrhea Difficulty In Chewing Usual Diet at Home unknown Skin Integrity/Comment Xavier Score 8 Current % PO Negligible Minimum of two criteria No Energy Intake (severe) < or equal to 50% Estimated Energy Requirement > or equal to 5 days #1 Nutrition Diagnosis Inadequate oral intake Etiology acute on chronic disease As Evidenced by Signs and Symptoms pt reported as lethargic, unable to self feed, and intakes <25%. Is patient on ventilator? No Is Patient Ambulatory and/or Out of Bed No REE-([facility]-confined to bed) [phone] Calculation Used for Recommendations [facility] Additional Notes Protein: 75-89g (1-1.2g/kg) Fluid: 2220ml (30ml/kg) Nutrition Intervention Change Diet Order: Recommend TF Nutrition Support: Promote at 65ml/hr Kcal 1,560 Protein (gm) 98 Fluid (mL) 1,309 Goal #1 Pt to meet >75% of energy and protein needs by mouth or initiate TF Anticipated Discharge Needs: Unable to determine at this time Follow-Up By: 08/25/19 Additional Comments F/u TF start
[2020-08-25] MEDS: ENOXAPARIN 80 MG/0.8 ML INJ SUB-Q SCH ×2 (10:22→21:40)
[2020-08-25] MEDS: HYDROCORTISONE SOD SUCC 100 MG/2 ML VIAL IV SCH ×2 (10:23→21:39)
[2020-08-25] MEDS: levETIRAcetam 750 MG in DEXTROSE 5% IN WATER 100 ML IV SCH ×2 (10:24→21:39)
--- NOTE | 2020-08-25 15:10 | Consultation ---
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 Noted with continued encephalopathy during this hospitalization with COVID-19 PCR being positive. Past History Past Medical History: diabetes, hyperthyroidism, other (Pituitary insufficiency, secondary renal insufficiency) Past Surgical History: No surgical history Social history: full code, other (Lives in [facility] facility) Family history: hypertension Medications and Allergies Allergies Allergy/AdvReac Type Severity Reaction Status Date / Time No Known Allergies Allergy Unverified 08/18/20 14:45 Home Medications Medication Instructions Recorded Confirmed Last Taken Type Amlodipine Besylate [Norvasc] 5 mg PO DAILY 08/18/20 08/18/20 Unknown History AtorvaSTATin [Lipitor] 20 mg PO QHS 08/18/20 08/18/20 Unknown History Cholecalciferol (Vitamin D3) 2,000 unit PO QDAY 08/18/20 08/18/20 Unknown History [Vitamin D3 2,000 UNIT CAP] Cyanocobalamin [Vitamin B-12] 1,000 mcg PO DAILY 08/18/20 08/18/20 Unknown History Folic Acid 1 mg PO QDAY 08/18/20 08/18/20 Unknown History Hydrocortisone 5 mg PO QHS 08/18/20 08/18/20 Unknown History Hydrocortisone 10 mg PO QAM 08/18/20 08/18/20 Unknown History Levothyroxine [Synthroid] 50 mcg PO QAM 08/18/20 08/18/20 Unknown History Ramipril 10 mg PO DAILY 08/18/20 08/18/20 Unknown History levETIRAcetam [Keppra TAB] 750 mg PO BID 08/18/20 08/18/20 Unknown History Active Meds: Active Medications Atropine Sulfate (Atropine 1 Mg/Ml Vial) 1 mg IV PRN PRN PRN Reason: Bradycardia Enoxaparin Sodium (Enoxaparin 80 Mg/0.8 Ml Inj) 70 mg SUB-Q Q12HR [facility] Last Admin: 08/25/20 10:22 Dose: 70 mg Documented by: Hydrocortisone Sodium Succinate (Hydrocortisone Sod Succ 100 Mg/2 Ml Vial) 50 mg IV Q12HR [facility] Last Admin: 08/25/20 10:23 Dose: 50 mg Documented by: Levetiracetam 750 mg/ Dextrose 107.5 mls @ 400 mls/hr IV Q12HR [facility] Last Admin: 08/25/20 10:24 Dose: 400 mls/hr Documented by: Levothyroxine Sodium (Levothyroxine 100 Mcg Inj) 25 mcg IV DAILY@0600 [facility] Last Admin: 08/25/20 06:11 Dose: 25 mcg Documented by: Review of Systems ROS unobtainable: due to mental status All systems: negative (obtained via RN;) Physical Examination - Vital Signs Vital Signs: Vital Signs Temp BP 99.1 F 91/46 08/18/20 13:00 08/18/20 13:00 - Physical Exam Narrative exam: Patient not seen secondary to COVID-19 restrictions. Results - Laboratory Findings CBC and BMP: 08/25/20 05:43 08/25/20 05:43 Abnormal Lab Findings: Abnormal Labs 08/18/20 08/18/20 08/18/20 15:35 15:35 15:35 WBC RBC Hgb Hct MCH RDW Plt Count Lymph % (Auto) Lymph # (Auto) Seg Neutrophils % Seg Neuts % (Manual) Lymphocytes % (Manual) Seg Neutrophils # Seg Neutrophils # Man Lymphocytes # (Manual) Monocytes # (Manual) D-Dimer Sodium 146 H Chloride Carbon Dioxide 21 L BUN 55 H Creatinine 3.5 H Glucose 154 H POC Glucose Lactic Acid 2.30 H* Ferritin Ammonia 17.0 L Lactate Dehydrogenase Total Creatine Kinase Troponin T 0.078 H C-Reactive Protein Total Protein 6.2 L Albumin 2.1 L LDL Cholesterol Direct HDL Cholesterol TSH Urine WBC (Auto) Coronavirus (PCR) 08/18/20 08/18/20 08/18/20 15:35 15:35 18:25 WBC RBC Hgb Hct MCH RDW Plt Count Lymph % (Auto) Lymph # (Auto) Seg Neutrophils % Seg Neuts % (Manual) Lymphocytes % (Manual) Seg Neutrophils # Seg Neutrophils # Man Lymphocytes # (Manual) Monocytes # (Manual) D-Dimer Sodium Chloride Carbon Dioxide BUN Creatinine Glucose 152 H POC Glucose Lactic Acid Ferritin 1950.0 H Ammonia Lactate Dehydrogenase 228 H Total Creatine Kinase Troponin T 0.075 H C-Reactive Protein 35.60 H Total Protein Albumin LDL Cholesterol Direct 42 L HDL Cholesterol 23 L TSH Urine WBC (Auto) Coronavirus (PCR) 08/18/20 08/18/20 08/18/20 Unknown Unknown Unknown WBC 20.3 H RBC 3.40 L Hgb 9.8 L Hct 29.0 L MCH RDW 15.8 H Plt Count Lymph % (Auto) Lymph # (Auto) Seg Neutrophils % Seg Neuts % (Manual) 93.0 H Lymphocytes % (Manual) 2.0 L Seg Neutrophils # Seg Neutrophils # Man 18.9 H Lymphocytes # (Manual) 0.4 L Monocytes # (Manual) 1.0 H D-Dimer 2409.74 H Sodium Chloride Carbon Dioxide BUN Creatinine Glucose POC Glucose Lactic Acid Ferritin Ammonia Lactate Dehydrogenase Total Creatine Kinase Troponin T C-Reactive Protein Total Protein Albumin LDL Cholesterol Direct HDL Cholesterol TSH Urine WBC (Auto) 41.0 H Coronavirus (PCR) 08/19/20 08/19/20 08/21/20 08:32 12:53 01:51 WBC RBC Hgb Hct MCH RDW Plt Count Lymph % (Auto) Lymph # (Auto) Seg Neutrophils % Seg Neuts % (Manual) Lymphocytes % (Manual) Seg Neutrophils # Seg Neutrophils # Man Lymphocytes # (Manual) Monocytes # (Manual) D-Dimer Sodium 148 H Chloride 113.7 H Carbon Dioxide 21 L BUN 64 H Creatinine 1.9 H Glucose 200 H POC Glucose 236 H Lactic Acid Ferritin Ammonia Lactate Dehydrogenase Total Creatine Kinase 1492 H Troponin T C-Reactive Protein Total Protein Albumin LDL Cholesterol Direct HDL Cholesterol TSH Urine WBC (Auto) Coronavirus (PCR) Positive A 08/21/20 08/22/20 08/22/20 13:20 19:44 19:44 WBC RBC 7.02 H Hgb 19.5 H Hct 59.6 H* MCH RDW 16.2 H Plt Count 123 L Lymph % (Auto) Lymph # (Auto) Seg Neutrophils % Seg Neuts % (Manual) Lymphocytes % (Manual) Seg Neutrophils # Seg Neutrophils # Man Lymphocytes # (Manual) Monocytes # (Manual) D-Dimer Sodium Chloride 112.2 H 110.4 H Carbon Dioxide 20 L 18 L BUN 59 H 48 H Creatinine Glucose 278 H 306 H POC Glucose Lactic Acid Ferritin Ammonia Lactate Dehydrogenase Total Creatine Kinase Troponin T C-Reactive Protein Total Protein Albumin LDL Cholesterol Direct HDL Cholesterol TSH Urine WBC (Auto) Coronavirus (PCR) 08/22/20 08/22/20 08/22/20 19:44 21:14 21:14 WBC 13.7 H RBC Hgb Hct MCH 27 L RDW 15.5 H Plt Count Lymph % (Auto) Lymph # (Auto) Seg Neutrophils % Seg Neuts % (Manual) 92.0 H Lymphocytes % (Manual) 5.0 L Seg Neutrophils # Seg Neutrophils # Man 12.6 H Lymphocytes # (Manual) 0.7 L Monocytes # (Manual) D-Dimer Sodium Chloride 108.8 H Carbon Dioxide 20 L BUN 45 H Creatinine Glucose 286 H POC Glucose Lactic Acid Ferritin Ammonia Lactate Dehydrogenase Total Creatine Kinase 164 H Troponin T C-Reactive Protein Total Protein Albumin LDL Cholesterol Direct HDL Cholesterol TSH Urine WBC (Auto) Coronavirus (PCR) 08/23/20 08/23/20 08/23/20 04:32 04:32 15:31 WBC 13.6 H RBC 3.60 L Hgb 9.6 L Hct MCH 27 L RDW 15.9 H Plt Count Lymph % (Auto) 4.5 L Lymph # (Auto) 0.6 L Seg Neutrophils % 91.9 H Seg Neuts % (Manual) Lymphocytes % (Manual) Seg Neutrophils # 12.5 H Seg Neutrophils # Man Lymphocytes # (Manual) Monocytes # (Manual) D-Dimer Sodium Chloride 111.8 H Carbon Dioxide BUN 42 H Creatinine Glucose 241 H POC Glucose 206 H Lactic Acid Ferritin Ammonia Lactate Dehydrogenase Total Creatine Kinase Troponin T C-Reactive Protein Total Protein Albumin LDL Cholesterol Direct HDL Cholesterol TSH Urine WBC (Auto) Coronavirus (PCR) 08/24/20 08/24/20 08/24/20 05:05 05:05 17:02 WBC 13.6 H RBC Hgb Hct MCH 27 L RDW 16.2 H Plt Count Lymph % (Auto) Lymph # (Auto) Seg Neutrophils % Seg Neuts % (Manual) Lymphocytes % (Manual) Seg Neutrophils # Seg Neutrophils # Man Lymphocytes # (Manual) Monocytes # (Manual) D-Dimer Sodium Chloride 115.4 H Carbon Dioxide BUN 37 H Creatinine Glucose 185 H POC Glucose Lactic Acid Ferritin Ammonia Lactate Dehydrogenase Total Creatine Kinase Troponin T C-Reactive Protein Total Protein Albumin LDL Cholesterol Direct HDL Cholesterol TSH 0.056 L Urine WBC (Auto) Coronavirus (PCR) 08/24/20 08/25/20 08/25/20 Unknown 05:43 05:43 WBC 16.7 H RBC Hgb 10.0 L Hct MCH 27 L RDW 15.8 H Plt Count Lymph % (Auto) Lymph # (Auto) Seg Neutrophils % Seg Neuts % (Manual) Lymphocytes % (Manual) Seg Neutrophils # Seg Neutrophils # Man Lymphocytes # (Manual) Monocytes # (Manual) D-Dimer Sodium 146 H Chloride 114.6 H Carbon Dioxide BUN 34 H Creatinine Glucose 167 H POC Glucose Lactic Acid Ferritin Ammonia Lactate Dehydrogenase Total Creatine Kinase Troponin T C-Reactive Protein Total Protein Albumin LDL Cholesterol Direct HDL Cholesterol TSH Urine WBC (Auto) Coronavirus (PCR) Positive A Assessment and Plan 80 yo female with recent COVID-19 (treated at [facility] in 07/2020), [place]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 1. Metabolic Encephalopathy - in the setting of risking leukocytosis, improving uremia, renal insufficiency, covid-19, underlying uti; may need csf evaluation if brain imaging and eeg are unremarkable and pt continues to remain encephalopathic; confirm prealbumin, cortisol, thiamine, t4/t3 levels if okay by primary. 2. Subacute Ischemic Stroke - nchct orderd, if normal, recommend a MR Brain w/ wo contrast if clinically stable and no contraindications martha in the setting of covid-19, a hypercoaguable state. 3. Seizure d/o - ordered EEG; continue Keppra 750 bid. Palmer Herbert MD Neurology
[2020-08-25] MEDS ORDERED: SODIUM BICARBONATE 325 MG TAB FEEDTUBE PRN (15:57)
[2020-08-25] MEDS ORDERED: SIMPLE SYRUP 15 ML FEEDTUBE PRN ×2 (15:57)
[2020-08-25] MEDS ORDERED: LIPASE 10,500/PROTEASE 25,000/AMYLASE 43,750 (UNITS) DR CAP FEEDTUBE PRN (16:57)
[2020-08-26] MEDS: LEVOTHYROXINE 100 MCG INJ IV SCH (06:01)
[2020-08-26 06:22] LABS: Hematocrit 30.6 % (30.3-42.9); Hemoglobin 9.7 gm/dl (10.1-14.3); Mean Corpuscular HGB Conc 32 % (30-34); Mean Corpuscular Volume 86 fl (79-97); Platelet Count 323 K/mm3 (140-440); Red Blood Count 3.58 M/mm3 (3.65-5.03); Red Cell Distribution Width 15.9 % (13.2-15.2)
[2020-08-26 06:35] LABS: Blood Urea Nitrogen 36 mg/dL (7-17); Calcium 9.1 mg/dL (8.4-10.2); Hemolysis Index 2
[2020-08-26 06:52] LABS: BUN/Creatinine Ratio 60
--- NOTE | 2020-08-26 09:34 | Progress Note ---
Assessment and Plan Assessment and plan: Acute toxic metabolic encephalopathy: Possibly secondary to infection versus decreased renal function. UTI: Awaiting urine cultures. Continue cefepime per ID recommendation Sepsis: Etiology secondary to above. Acute hypoxic respiratory failure: Currently on 3 L nasal cannula. Unclear if she has discharged on oxygen from bradycardia when she had Covid. 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 08/24/2020. Patient still mildly confused. However, I suspect patient has underlying Alzheimer's dementia and this is her baseline. I discussed plan of care and altered mentation with sister at [phone]. Patient will need DME of hospital bed and oxygen for discharge home. Await physical therapy recommendations. 08/25/2020. Patient still lethargic and confused. Patient receiving hydrocortisone 50 mg IV twice daily for adrenal insufficiency. Check B12, folate and ammonia levels. Neurology consultation pending. Continue supplemental oxygen to maintain sats greater than 92%. 08/26/2020. Encephalopathy likely secondary to toxic metabolic causes in the setting of leukocytosis, improving uremia, renal insufficiency, covid-19, underlying uti. Check CT head without contrast and EEG per neurology recommendations. However may need csf evaluation if brain imaging and eeg are unremarkable and pt continues to remain encephalopathic. Follow-up cortisol levels and T3-T4. History Interval history: No new issues overnight. Patient still lethargic and confused. Hospitalist Physical - Constitutional Vitals: Temp Pulse Resp BP Pulse Ox 97.9 F 60 16 125/52 100 08/26/20 04:25 08/26/20 04:25 08/26/20 08:15 08/26/20 04:25 08/26/20 08:15 General appearance: Present: no acute distress, well-nourished, other (Lethargic and confused) - EENT Eyes: Present: PERRL, EOM intact ENT: hearing intact, clear oral mucosa, dentition normal - Neck Neck: Present: supple, normal ROM - Respiratory Respiratory effort: normal Respiratory: bilateral: CTA - Cardiovascular Rhythm: regular Heart Sounds: Present: S1 & S2. Absent: gallop, rub - Extremities Extremities: no ischemia, No edema, Full ROM - Abdominal General gastrointestinal: soft, non-tender, non-distended, normal bowel sounds - Integumentary Integumentary: Present: clear, warm, dry - Neurologic Neurologic: CNII-XII intact, moves all extremities HEART Score - HEART Score Troponin: Troponin T 0.075 ng/mL (0.00-0.029) H 08/18/20 18:25 Troponin: 1-3x normal limit - Critical Actions Critical Actions: 4-6 pts:12-16.6% risk of adverse cardiac event. Should be admitted Results - Labs CBC & Chem 7: 08/26/20 05:13 08/26/20 05:13 Labs: Laboratory Last Values WBC 17.2 K/mm3 (4.5-11.0) H 08/26/20 05:13 RBC 3.58 M/mm3 (3.65-5.03) L 08/26/20 05:13 Hgb 9.7 gm/dl (10.1-14.3) L 08/26/20 05:13 Hct 30.6 % (30.3-42.9) 08/26/20 05:13 MCV 86 fl (79-97) 08/26/20 05:13 MCH 27 pg (28-32) L 08/26/20 05:13 MCHC 32 % (30-34) 08/26/20 05:13 RDW 15.9 % (13.2-15.2) H 08/26/20 05:13 Plt Count 323 K/mm3 (140-440) 08/26/20 05:13 Lymph % (Auto) 4.5 % (13.4-35.0) L 08/23/20 04:32 [place] % (Auto) 3.5 % (0.0-7.3) 08/23/20 04:32 Eos % (Auto) 0.0 % (0.0-4.3) 08/23/20 04:32 Baso % (Auto) 0.1 % (0.0-1.8) 08/23/20 04:32 Lymph # (Auto) 0.6 K/mm3 (1.2-5.4) L 08/23/20 04:32 [place] # (Auto) 0.5 K/mm3 (0.0-0.8) 08/23/20 04:32 Eos # (Auto) 0.0 K/mm3 (0.0-0.4) 08/23/20 04:32 Baso # (Auto) 0.0 K/mm3 (0.0-0.1) 08/23/20 04:32 Add Manual Diff Complete 08/22/20 21:14 Total Counted 100 08/22/20 21:14 Seg Neutrophils % 91.9 % (40.0-70.0) H 08/23/20 04:32 Seg Neuts % (Manual) 92.0 % (40.0-70.0) H 08/22/20 21:14 Lymphocytes % (Manual) 5.0 % (13.4-35.0) L 08/22/20 21:14 Monocytes % (Manual) 3.0 % (0.0-7.3) 08/22/20 21:14 Nucleated RBC % Not Reportable 08/22/20 21:14 Seg Neutrophils # 12.5 K/mm3 (1.8-7.7) H 08/23/20 04:32 Seg Neutrophils # Man 12.6 K/mm3 (1.8-7.7) H 08/22/20 21:14 Band Neutrophils # 0.0 K/mm3 08/22/20 21:14 Lymphocytes # (Manual) 0.7 K/mm3 (1.2-5.4) L 08/22/20 21:14 Abs React Lymphs (Man) 0.0 K/mm3 08/22/20 21:14 Monocytes # (Manual) 0.4 K/mm3 (0.0-0.8) 08/22/20 21:14 Eosinophils # (Manual) 0.0 K/mm3 (0.0-0.4) 08/22/20 21:14 Basophils # (Manual) 0.0 K/mm3 (0.0-0.1) 08/22/20 21:14 Metamyelocytes # 0.0 K/mm3 08/22/20 21:14 Myelocytes # 0.0 K/mm3 08/22/20 21:14 Promyelocytes # 0.0 K/mm3 08/22/20 21:14 Blast Cells # 0.0 K/mm3 08/22/20 21:14 WBC Morphology Not Reportable 08/22/20 21:14 Hypersegmented Neuts Not Reportable 08/22/20 21:14 Hyposegmented Neuts Not Reportable 08/22/20 21:14 Hypogranular Neuts Not Reportable 08/22/20 21:14 Smudge Cells Not Reportable 08/22/20 21:14 Toxic Granulation Not Reportable 08/22/20 21:14 Toxic Vacuolation Not Reportable 08/22/20 21:14 Dohle Bodies Not Reportable 08/22/20 21:14 Pelger-Huet Anomaly Not Reportable 08/22/20 21:14 Marie Rods Not Reportable 08/22/20 21:14 Platelet Estimate Consistent w auto 08/22/20 21:14 Clumped Platelets Not Reportable 08/22/20 21:14 Plt Clumps, EDTA Not Reportable 08/22/20 21:14 Large Platelets Rare 08/22/20 21:14 Giant Platelets Not Reportable 08/22/20 21:14 Platelet Satelliting Not Reportable 08/22/20 21:14 Plt Morphology Comment Not Reportable 08/22/20 21:14 RBC Morphology Not Reportable 08/22/20 21:14 Dimorphic RBCs Not Reportable 08/22/20 21:14 Polychromasia Not Reportable 08/22/20 21:14 Hypochromasia Not Reportable 08/22/20 21:14 Poikilocytosis Not Reportable 08/22/20 21:14 Anisocytosis Not Reportable 08/22/20 21:14 Microcytosis Not Reportable 08/22/20 21:14 Macrocytosis Not Reportable 08/22/20 21:14 Spherocytes Not Reportable 08/22/20 21:14 Pappenheimer Bodies Not Reportable 08/22/20 21:14 Sickle Cells Not Reportable 08/22/20 21:14 Target Cells Not Reportable 08/22/20 21:14 Tear Drop Cells Not Reportable 08/22/20 21:14 Ovalocytes Rare 08/22/20 21:14 Helmet Cells Not Reportable 08/22/20 21:14 [place] Bodies Not Reportable 08/22/20 21:14 [place] Rings Not Reportable 08/22/20 21:14 [place] Cells Few 08/22/20 21:14 Bite Cells Not Reportable 08/22/20 21:14 Crenated Cell Not Reportable 08/22/20 21:14 Elliptocytes Not Reportable 08/22/20 21:14 Acanthocytes (Spur) Rare 08/22/20 21:14 Rouleaux Not Reportable 08/22/20 21:14 Hemoglobin C Crystals Not Reportable 08/22/20 21:14 Schistocytes Not Reportable 08/22/20 21:14 Malaria parasites Not Reportable 08/22/20 21:14 [place] Bodies Not Reportable 08/22/20 21:14 Hem Pathologist Commnt No 08/22/20 21:14 D-Dimer 2409.74 ng/mlDDU (0-234) H 08/18/20 Unknown Sodium 147 mmol/L (137-145) H 08/26/20 05:13 Potassium 3.4 mmol/L (3.6-5.0) L 08/26/20 05:13 Chloride 114.8 mmol/L (98-107) H 08/26/20 05:13 Carbon Dioxide 27 mmol/L (22-30) 08/26/20 05:13 Anion Gap 9 mmol/L 08/26/20 05:13 BUN 36 mg/dL (7-17) H 08/26/20 05:13 Creatinine 0.6 mg/dL (0.6-1.2) 08/26/20 05:13 Estimated GFR > 60 ml/min 08/26/20 05:13 BUN/Creatinine Ratio 60 % 08/26/20 05:13 Glucose 134 mg/dL (65-100) H 08/26/20 05:13 POC Glucose 206 mg/dL (70-105) H 08/23/20 15:31 Lactic Acid 1.00 mmol/L (0.7-2.0) 08/18/20 18:25 Calcium 9.1 mg/dL (8.4-10.2) 08/26/20 05:13 Ferritin 1950.0 ng/mL (10.0-200.0) H 08/18/20 15:35 Total Bilirubin 1.10 mg/dL (0.1-1.2) 08/18/20 15:35 AST 38 units/L (5-40) 08/18/20 15:35 ALT 11 units/L (7-56) 08/18/20 15:35 Alkaline Phosphatase 57 units/L (35-129) 08/18/20 15:35 Ammonia 32.0 umol/L (25-60) 08/25/20 09:06 Lactate Dehydrogenase 228 units/L (91-180) H 08/18/20 15:35 Total Creatine Kinase 164 units/L (30-135) H 08/22/20 19:44 Troponin T 0.075 ng/mL (0.00-0.029) H 08/18/20 18:25 C-Reactive Protein 35.60 mg/dL (0.00-1.30) H 08/18/20 15:35 Total Protein 6.2 g/dL (6.3-8.2) L 08/18/20 15:35 Albumin 2.1 g/dL (3.9-5) L 08/18/20 15:35 Albumin/Globulin Ratio 0.5 % 08/18/20 15:35 Triglycerides 60 mg/dL (2-149) 08/18/20 18:25 Cholesterol 79 mg/dL (50-199) 08/18/20 18:25 LDL Cholesterol Direct 42 mg/dL (50-130) L 08/18/20 18:25 HDL Cholesterol 23 mg/dL (40-59) L 08/18/20 18:25 Cholesterol/HDL Ratio 3.43 % 08/18/20 18:25 Vitamin B12 721.0 pg/mL (211-911) 08/25/20 09:06 Folate 8.34 ng/mL (7.3-26.0) 08/25/20 09:06 Procalcitonin 4.00 ng/mL (<0.15) 08/18/20 15:35 TSH 0.056 mlU/mL (0.270-4.200) L 08/24/20 17:02 Urine Color Jacqueline (Yellow) 08/18/20 Unknown Urine Turbidity Hazy (Clear) 08/18/20 Unknown Urine pH 5.0 (5.0-7.0) 08/18/20 Unknown Ur Specific [place] 1.020 (1.003-1.030) 08/18/20 Unknown Urine Protein 30 mg/dl mg/dL (Negative) 08/18/20 Unknown Urine Glucose (UA) 50 mg/dL (Negative) 08/18/20 Unknown Urine Ketones Neg mg/dL (Negative) 08/18/20 Unknown Urine Blood Neg (Negative) 08/18/20 Unknown Urine Nitrite Neg (Negative) 08/18/20 Unknown Urine Bilirubin Neg (Negative) 08/18/20 Unknown Urine Urobilinogen 4.0 mg/dL (<2.0) 08/18/20 Unknown Ur Leukocyte Esterase Tr (Negative) 08/18/20 Unknown Urine WBC (Auto) 41.0 /HPF (0.0-6.0) H 08/18/20 Unknown Urine RBC (Auto) 4.0 /HPF (0.0-6.0) 08/18/20 Unknown U Epithel Cells (Auto) 1.0 /HPF (0-13.0) 08/18/20 Unknown Urine Mucus 3+ /HPF 08/18/20 Unknown Random Vancomycin 9.8 ug/mL (0-40.0) 08/19/20 19:02 Coronavirus (PCR) Positive (Negative) A 08/24/20 Unknown [place]/IV: Voiding Method Indwelling Catheter IV Catheter Type [Left CVL Internal Jugular] IV Catheter Type [Left] CVL Active Medications - Current Medications Current Medications: Generic Name Dose Route Start Last Admin Trade Name Freq PRN Reason Stop Dose Admin Lipase/Protease/Amylase 1 each 08/25/20 16:57 Lipase 10,500/Protease 25,000/Amylase 43,750 (Units) Dr Fernandez FEEDTUBE PRN PRN For Clogged Feeding Tube Atropine Sulfate 1 mg 08/23/20 16:56 Atropine 1 Mg/Ml Vial IV PRN PRN Bradycardia Enoxaparin Sodium 70 mg 08/24/20 14:30 08/25/20 21:40 Enoxaparin 80 Mg/0.8 Ml Inj SUB-Q 70 mg Q12HR BARBARA Administration Hydrocortisone Sodium Succinate 50 mg 08/21/20 10:00 08/25/20 21:39 Hydrocortisone Sod Succ 100 Mg/2 Ml Vial IV 50 mg Q12HR BARBARA Administration Levetiracetam 750 mg/ Dextrose 107.5 mls @ 400 mls/hr 08/24/20 12:00 08/25/20 21:39 IV 400 mls/hr Q12HR BARBARA Administration Levothyroxine Sodium 25 mcg 08/24/20 13:00 08/26/20 06:01 Levothyroxine 100 Mcg Inj IV 25 mcg DAILY@0600 BARBARA Administration Simple Syrup 15 ml 08/25/20 15:57 Simple Syrup 15 Ml FEEDTUBE PRN PRN Hypoglycemia Simple Syrup 30 ml 08/25/20 15:57 Simple Syrup 15 Ml FEEDTUBE PRN PRN Hypoglycemia Sodium Bicarbonate 325 mg 08/25/20 15:57 Sodium Bicarbonate 325 Mg Tab FEEDTUBE PRN PRN For Clogged Feeding Tube Nutrition/Malnutrition Assess - Dietary Evaluation Nutrition/Malnutrition Findings: Nutrition Notes Start: 08/23/20 10:57 Freq: Status: Active Protocol: Document 08/25/20 11:01 DIANA (Rec: 08/25/20 11:08 [id number]) Nutrition Notes Need for Assessment generated from: MD Order Initial or Follow up Reassessment Current Diagnosis Acute Kidney Injury,Sepsis Other Pertinent Diagnosis COVID-19 (+), AMS, Mehran's, UTI, acute respiratory failure Current Diet NPO Labs/Tests Na 146 BUN 34 BG 167 Pertinent Medications Reviewed Height 5 ft 5 in Weight 74.4 kg [place] Body Weight (kg) 56.81 BMI 27.3 Weight Status Appropriate Subjective/Other Information MD consult for TF. Pt remains NPO per GLUELINE WORKER. Burn Absent Trauma Absent Difficulty In Chewing Usual Diet at Home unknown Skin Integrity/Comment Xavier Score 8 Current % PO Negligible Minimum of two criteria No Energy Intake (severe) < or equal to 50% Estimated Energy Requirement > or equal to 5 days #1 Nutrition Diagnosis Inadequate oral intake Diagnosis Progress(for reassessment Continues documentation) Is patient on ventilator? No Is Patient Ambulatory and/or Out of Bed No REE-([facility]-confined to bed) [phone] Calculation Used for Recommendations [facility] Additional Notes Protein: 75-89g (1-1.2g/kg) Fluid: 2220ml (30ml/kg) Nutrition Intervention Change Diet Order: Start TF Nutrition Support: Promote at 60ml/hr Flush 150 ml q4h for hypernatermia. Once resolved, flush 50ml q4h. Kcal 1,440 Protein (gm) 90 Fluid (mL) 1,208 Goal #1 Pt to meet >75% of energy and protein needs by TF Anticipated Discharge Needs: Unable to determine at this time Follow-Up By: 08/30/20 Additional Comments FU for TF start/tolerance
[2020-08-26] MEDS: levETIRAcetam 750 MG in DEXTROSE 5% IN WATER 100 ML IV SCH ×2 (10:35→21:47)
[2020-08-26] MEDS: ENOXAPARIN 80 MG/0.8 ML INJ SUB-Q SCH ×3 (10:38→22:49)
[2020-08-26] MEDS: HYDROCORTISONE SOD SUCC 100 MG/2 ML VIAL IV SCH ×2 (10:39→21:47)
--- NOTE | 2020-08-26 11:36 | Cat Scan Report ---
CT BRAIN: 08/26/2020 INDICATION / CLINICAL INFORMATION: Acute Encephalopathy. COMPARISON: 08/18/2020 FINDINGS: BRAIN/INTRACRANIAL STRUCTURES: Unenhanced CT images of the brain were obtained and compared to the pr ior exam from 08/18/2020. There is been no change. There is no evidence of acute abnormality. Ventricles and sulci are prominent in size, consistent wit h pronounced diffuse cerebral atrophy. Chronic white matter hypoattenuation is present. There is no evidence of acute large vessel territory ischemic injury, hemorrhage, or mass. There are no abnormal extra-axial fluid collections. There is rather prominent hyperostosis associated with the middle cranial fossa and temporal bones bi laterally, presumably a degenerative process. EXTRACRANIAL STRUCTURES: Incidental note is made of a soft tissue mass or focal mucosal thickening wh ich is in the right anterior nasal cavity. This portion of the nasal cavity was not included on the p rior exam. Clinical correlation is necessary for further evaluation. IMPRESSION: 1. No acute abnormality. No significant change when compared to 08/18/2020. 2. Right anterior nasal cavity focal mucosal thickening or soft tissue mass. All CT scans at this location are performed using dose reduction to ALARA by means of automated expos ure control. Signer Name: Sunil Mike MD Signed: 08/26/2020 11:32 AM Workstation Name: [id number]
[2020-08-26] MEDS ORDERED: D5W/0.45% NACL 1,000 ML IV SCH (18:00)
[2020-08-26 18:36] LABS: Hematocrit 26.1 % (30.3-42.9); Hemoglobin 8.4 gm/dl (10.1-14.3)
[2020-08-26] MEDS: PANTOPRAZOLE 40 MG INJ IV SCH (21:47)
[2020-08-27 00:32] LABS: Hematocrit 24.6 % (30.3-42.9)
[2020-08-27] MEDS: WATER FOR INJ Sterile (PF) 10 ML ONE ×2 (05:37→05:40)
[2020-08-27] MEDS: LEVOTHYROXINE 100 MCG INJ IV SCH (05:38)
[2020-08-27 06:27] LABS: Hematocrit 24.1 % (30.3-42.9); Hemoglobin 7.8 gm/dl (10.1-14.3); Mean Corpuscular HGB Conc 32 % (30-34); Mean Corpuscular Volume 85 fl (79-97); Platelet Count 263 K/mm3 (140-440); Red Blood Count 2.83 M/mm3 (3.65-5.03); Red Cell Distribution Width 15.9 % (13.2-15.2)
[2020-08-27 06:31] LABS: Basophils % (Auto) 0.1 % (0.0-1.8); Eosinophils # (Auto) 0.1 K/mm3 (0.0-0.4); Eosinophils % (Auto) 0.5 % (0.0-4.3); Lymphocytes # (Auto) 1.5 K/mm3 (1.2-5.4); Lymphocytes % (Auto) 8.4 % (13.4-35.0); Monocytes # (Auto) 0.7 K/mm3 (0.0-0.8); Monocytes % (Auto) 4.1 % (0.0-7.3)
[2020-08-27 06:41] LABS: Blood Urea Nitrogen 36 mg/dL (7-17); Calcium 8.4 mg/dL (8.4-10.2); Hemolysis Index 4
[2020-08-27 06:42] LABS: BUN/Creatinine Ratio 60
--- NOTE | 2020-08-27 09:04 | Progress Note ---
Assessment and Plan Assessment and plan: Acute toxic metabolic encephalopathy: Possibly secondary to infection versus decreased renal function. GI bleed/hematochezia. Nurse noted bloody stool on 08/26-08/27 UTI: Urine and blood cultures negative. Continue cefepime per ID recommendation Sepsis: Etiology secondary to above. Acute hypoxic respiratory failure: Currently on 3 L nasal cannula. Unclear if she has discharged on oxygen from bradycardia when she had Covid. 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 D-dimer noted to be 2409.7 and thus empirically started on therapeutic dose anticoagulation. PAWAN: Renally dose medications. 08/24/2020. Patient still mildly confused. However, I suspect patient has underlying Alzheimer's dementia and this is her baseline. I discussed plan of care and altered mentation with sister at [phone]. Patient will need DME of hospital bed and oxygen for discharge home. Await physical therapy recommendations. 08/25/2020. Patient still lethargic and confused. Patient receiving hydrocortisone 50 mg IV twice daily for adrenal insufficiency. Check B12, folate and ammonia levels. Neurology consultation pending. Continue supplemental oxygen to maintain sats greater than 92%. 08/26/2020. Encephalopathy likely secondary to toxic metabolic causes in the setting of leukocytosis, improving uremia, renal insufficiency, covid-19, underlying uti. Check CT head without contrast and EEG per neurology recommendations. However may need csf evaluation if brain imaging and eeg are unremarkable and pt continues to remain encephalopathic. Follow-up cortisol levels and T3-T4. 08/27/2020. Patient remains lethargic and confused. Encephalopathy is persistent and likely secondary to toxic metabolic causes from sepsis, renal insufficiency/uremia, COVID-[address] scan of the head found to be negative. Await EEG. Consider CSF evaluation if EEG unremarkable. Consult GI for further evaluation of hematochezia/GI bleed. Continue Protonix 40 mg IV twice daily. Transfuse for hemoglobin less than 7. Continue to monitor serial CBC. Lovenox discontinued which was empirically started for elevated D-dimer. Patient does have a history of chronic steroids for [place]'s disease. Decrease IV hydrocortisone. Follow-up cortisol levels and T3-T4. I updated the sister and family at [phone]. History Interval history: No new issues overnight. Patient still lethargic and confused. Hospitalist Physical - Constitutional Vitals: Temp Pulse Resp BP Pulse Ox 98.1 F 70 16 112/36 100 08/27/20 04:52 08/27/20 04:52 08/27/20 04:52 08/27/20 04:52 08/27/20 04:52 General appearance: Present: no acute distress, well-nourished, other (Lethargic and confused) - EENT Eyes: Present: PERRL, EOM intact ENT: hearing intact, clear oral mucosa, dentition normal - Neck Neck: Present: supple, normal ROM - Respiratory Respiratory effort: normal Respiratory: bilateral: CTA - Cardiovascular Rhythm: regular Heart Sounds: Present: S1 & S2. Absent: gallop, rub - Extremities Extremities: no ischemia, No edema, Full ROM - Abdominal General gastrointestinal: soft, non-tender, non-distended, normal bowel sounds - Integumentary Integumentary: Present: clear, warm, dry - Neurologic Neurologic: CNII-XII intact, moves all extremities HEART Score - HEART Score Troponin: Troponin T 0.075 ng/mL (0.00-0.029) H 08/18/20 18:25 Troponin: 1-3x normal limit - Critical Actions Critical Actions: 4-6 pts:12-16.6% risk of adverse cardiac event. Should be admitted Results - Labs CBC & Chem 7: 08/27/20 05:22 08/27/20 05:22 Labs: Laboratory Last Values WBC 18.0 K/mm3 (4.5-11.0) H 08/27/20 05:22 RBC 2.83 M/mm3 (3.65-5.03) L 08/27/20 05:22 Hgb 7.8 gm/dl (10.1-14.3) L 08/27/20 05:22 Hct 24.1 % (30.3-42.9) L 08/27/20 05:22 MCV 85 fl (79-97) 08/27/20 05:22 MCH 27 pg (28-32) L 08/27/20 05:22 MCHC 32 % (30-34) 08/27/20 05:22 RDW 15.9 % (13.2-15.2) H 08/27/20 05:22 Plt Count 263 K/mm3 (140-440) 08/27/20 05:22 Lymph % (Auto) 8.4 % (13.4-35.0) L 08/27/20 05:22 [place] % (Auto) 4.1 % (0.0-7.3) 08/27/20 05:22 Eos % (Auto) 0.5 % (0.0-4.3) 08/27/20 05:22 Baso % (Auto) 0.1 % (0.0-1.8) 08/27/20 05:22 Lymph # (Auto) 1.5 K/mm3 (1.2-5.4) 08/27/20 05:22 [place] # (Auto) 0.7 K/mm3 (0.0-0.8) 08/27/20 05:22 Eos # (Auto) 0.1 K/mm3 (0.0-0.4) 08/27/20 05:22 Baso # (Auto) 0.0 K/mm3 (0.0-0.1) 08/27/20 05:22 Add Manual Diff Complete 08/22/20 21:14 Total Counted 100 08/22/20 21:14 Seg Neutrophils % 86.9 % (40.0-70.0) H 08/27/20 05:22 Seg Neuts % (Manual) 92.0 % (40.0-70.0) H 08/22/20 21:14 Lymphocytes % (Manual) 5.0 % (13.4-35.0) L 08/22/20 21:14 Monocytes % (Manual) 3.0 % (0.0-7.3) 08/22/20 21:14 Nucleated RBC % Not Reportable 08/22/20 21:14 Seg Neutrophils # 15.6 K/mm3 (1.8-7.7) H 08/27/20 05:22 Seg Neutrophils # Man 12.6 K/mm3 (1.8-7.7) H 08/22/20 21:14 Band Neutrophils # 0.0 K/mm3 08/22/20 21:14 Lymphocytes # (Manual) 0.7 K/mm3 (1.2-5.4) L 08/22/20 21:14 Abs React Lymphs (Man) 0.0 K/mm3 08/22/20 21:14 Monocytes # (Manual) 0.4 K/mm3 (0.0-0.8) 08/22/20 21:14 Eosinophils # (Manual) 0.0 K/mm3 (0.0-0.4) 08/22/20 21:14 Basophils # (Manual) 0.0 K/mm3 (0.0-0.1) 08/22/20 21:14 Metamyelocytes # 0.0 K/mm3 08/22/20 21:14 Myelocytes # 0.0 K/mm3 08/22/20 21:14 Promyelocytes # 0.0 K/mm3 08/22/20 21:14 Blast Cells # 0.0 K/mm3 08/22/20 21:14 WBC Morphology Not Reportable 08/22/20 21:14 Hypersegmented Neuts Not Reportable 08/22/20 21:14 Hyposegmented Neuts Not Reportable 08/22/20 21:14 Hypogranular Neuts Not Reportable 08/22/20 21:14 Smudge Cells Not Reportable 08/22/20 21:14 Toxic Granulation Not Reportable 08/22/20 21:14 Toxic Vacuolation Not Reportable 08/22/20 21:14 Dohle Bodies Not Reportable 08/22/20 21:14 Pelger-Huet Anomaly Not Reportable 08/22/20 21:14 Marie Rods Not Reportable 08/22/20 21:14 Platelet Estimate Consistent w auto 08/22/20 21:14 Clumped Platelets Not Reportable 08/22/20 21:14 Plt Clumps, EDTA Not Reportable 08/22/20 21:14 Large Platelets Rare 08/22/20 21:14 Giant Platelets Not Reportable 08/22/20 21:14 Platelet Satelliting Not Reportable 08/22/20 21:14 Plt Morphology Comment Not Reportable 08/22/20 21:14 RBC Morphology Not Reportable 08/22/20 21:14 Dimorphic RBCs Not Reportable 08/22/20 21:14 Polychromasia Not Reportable 08/22/20 21:14 Hypochromasia Not Reportable 08/22/20 21:14 Poikilocytosis Not Reportable 08/22/20 21:14 Anisocytosis Not Reportable 08/22/20 21:14 Microcytosis Not Reportable 08/22/20 21:14 Macrocytosis Not Reportable 08/22/20 21:14 Spherocytes Not Reportable 08/22/20 21:14 Pappenheimer Bodies Not Reportable 08/22/20 21:14 Sickle Cells Not Reportable 08/22/20 21:14 Target Cells Not Reportable 08/22/20 21:14 Tear Drop Cells Not Reportable 08/22/20 21:14 Ovalocytes Rare 08/22/20 21:14 Helmet Cells Not Reportable 08/22/20 21:14 [place] Bodies Not Reportable 08/22/20 21:14 [place] Rings Not Reportable 08/22/20 21:14 Darren Cells Few 08/22/20 21:14 Bite Cells Not Reportable 08/22/20 21:14 Crenated Cell Not Reportable 08/22/20 21:14 Elliptocytes Not Reportable 08/22/20 21:14 Acanthocytes (Spur) Rare 08/22/20 21:14 Rouleaux Not Reportable 08/22/20 21:14 Hemoglobin C Crystals Not Reportable 08/22/20 21:14 Schistocytes Not Reportable 08/22/20 21:14 Malaria parasites Not Reportable 08/22/20 21:14 Payam Bodies Not Reportable 08/22/20 21:14 Hem Pathologist Commnt No 08/22/20 21:14 D-Dimer 2409.74 ng/mlDDU (0-234) H 08/18/20 Unknown Sodium 150 mmol/L (137-145) H 08/27/20 05:22 Potassium 3.5 mmol/L (3.6-5.0) L 08/27/20 05:22 Chloride 118.7 mmol/L (98-107) H 08/27/20 05:22 Carbon Dioxide 27 mmol/L (22-30) 08/27/20 05:22 Anion Gap 8 mmol/L 08/27/20 05:22 BUN 36 mg/dL (7-17) H 08/27/20 05:22 Creatinine 0.6 mg/dL (0.6-1.2) 08/27/20 05:22 Estimated GFR > 60 ml/min 08/27/20 05:22 BUN/Creatinine Ratio 60 % 08/27/20 05:22 Glucose 201 mg/dL (65-100) H 08/27/20 05:22 POC Glucose 206 mg/dL (70-105) H 08/23/20 15:31 Lactic Acid 1.00 mmol/L (0.7-2.0) 08/18/20 18:25 Calcium 8.4 mg/dL (8.4-10.2) 08/27/20 05:22 Ferritin 1950.0 ng/mL (10.0-200.0) H 08/18/20 15:35 Total Bilirubin 1.10 mg/dL (0.1-1.2) 08/18/20 15:35 AST 38 units/L (5-40) 08/18/20 15:35 ALT 11 units/L (7-56) 08/18/20 15:35 Alkaline Phosphatase 57 units/L (35-129) 08/18/20 15:35 Ammonia 32.0 umol/L (25-60) 08/25/20 09:06 Lactate Dehydrogenase 228 units/L (91-180) H 08/18/20 15:35 Total Creatine Kinase 164 units/L (30-135) H 08/22/20 19:44 Troponin T 0.075 ng/mL (0.00-0.029) H 08/18/20 18:25 C-Reactive Protein 35.60 mg/dL (0.00-1.30) H 08/18/20 15:35 Total Protein 6.2 g/dL (6.3-8.2) L 08/18/20 15:35 Albumin 2.1 g/dL (3.9-5) L 08/18/20 15:35 Albumin/Globulin Ratio 0.5 % 08/18/20 15:35 Triglycerides 60 mg/dL (2-149) 08/18/20 18:25 Cholesterol 79 mg/dL (50-199) 08/18/20 18:25 LDL Cholesterol Direct 42 mg/dL (50-130) L 08/18/20 18:25 HDL Cholesterol 23 mg/dL (40-59) L 08/18/20 18:25 Cholesterol/HDL Ratio 3.43 % 08/18/20 18:25 Vitamin B12 721.0 pg/mL (211-911) 08/25/20 09:06 Folate 8.34 ng/mL (7.3-26.0) 08/25/20 09:06 Procalcitonin 4.00 ng/mL (<0.15) 08/18/20 15:35 TSH 0.056 mlU/mL (0.270-4.200) L 08/24/20 17:02 Free T4 1.59 ng/dL (0.76-1.46) H 08/26/20 10:22 Urine Color Jacqueline (Yellow) 08/18/20 Unknown Urine Turbidity Hazy (Clear) 08/18/20 Unknown Urine pH 5.0 (5.0-7.0) 08/18/20 Unknown Ur Specific [place] 1.020 (1.003-1.030) 08/18/20 Unknown Urine Protein 30 mg/dl mg/dL (Negative) 08/18/20 Unknown Urine Glucose (UA) 50 mg/dL (Negative) 08/18/20 Unknown Urine Ketones Neg mg/dL (Negative) 08/18/20 Unknown Urine Blood Neg (Negative) 08/18/20 Unknown Urine Nitrite Neg (Negative) 08/18/20 Unknown Urine Bilirubin Neg (Negative) 08/18/20 Unknown Urine Urobilinogen 4.0 mg/dL (<2.0) 08/18/20 Unknown Ur Leukocyte Esterase Tr (Negative) 08/18/20 Unknown Urine WBC (Auto) 41.0 /HPF (0.0-6.0) H 08/18/20 Unknown Urine RBC (Auto) 4.0 /HPF (0.0-6.0) 08/18/20 Unknown U Epithel Cells (Auto) 1.0 /HPF (0-13.0) 08/18/20 Unknown Urine Mucus 3+ /HPF 08/18/20 Unknown Random Vancomycin 9.8 ug/mL (0-40.0) 08/19/20 19:02 Coronavirus (PCR) Positive (Negative) A 08/24/20 Unknown [place]/IV: Voiding Method Indwelling Catheter IV Catheter Type [Left Triple Lumen Cath Internal Jugular] IV Catheter Type [Left] CVL Active Medications - Current Medications Current Medications: Generic Name Dose Route Start Last Admin Trade Name Freq PRN Reason Stop Dose Admin Lipase/Protease/Amylase 1 each 08/25/20 16:57 Lipase 10,500/Protease 25,000/Amylase 43,750 (Units) Dr Fernandez FEEDTUBE PRN PRN For Clogged Feeding Tube Atropine Sulfate 1 mg 08/23/20 16:56 Atropine 1 Mg/Ml Vial IV PRN PRN Bradycardia Enoxaparin Sodium 70 mg 08/24/20 14:30 08/26/20 22:49 Enoxaparin 80 Mg/0.8 Ml Inj SUB-Q Not Given Q12HR BARBARA Hydrocortisone Sodium Succinate 50 mg 08/21/20 10:00 08/26/20 21:47 Hydrocortisone Sod Succ 100 Mg/2 Ml Vial IV 50 mg Q12HR BARBARA Administration Levetiracetam 750 mg/ Dextrose 107.5 mls @ 400 mls/hr 08/24/20 12:00 08/26/20 21:47 IV 400 mls/hr Q12HR BARBARA Administration Dextrose/Sodium Chloride 1,000 mls @ 50 mls/hr 08/26/20 18:00 08/26/20 18:34 D5/0.45ns IV 50 mls/hr DIRECT BARBARA Administration Levothyroxine Sodium 25 mcg 08/24/20 13:00 08/27/20 05:38 Levothyroxine 100 Mcg Inj IV 25 mcg DAILY@0600 BARBARA Administration Pantoprazole Sodium 40 mg 08/26/20 22:00 08/26/20 21:47 Pantoprazole 40 Mg Inj IV 40 mg BID BARBARA Administration Simple Syrup 15 ml 08/25/20 15:57 Simple Syrup 15 Ml FEEDTUBE PRN PRN Hypoglycemia Simple Syrup 30 ml 08/25/20 15:57 Simple Syrup 15 Ml FEEDTUBE PRN PRN Hypoglycemia Sodium Bicarbonate 325 mg 08/25/20 15:57 Sodium Bicarbonate 325 Mg Tab FEEDTUBE PRN PRN For Clogged Feeding Tube Nutrition/Malnutrition Assess - Dietary Evaluation Nutrition/Malnutrition Findings: Nutrition Notes Start: 08/23/20 10:57 Freq: Status: Active Protocol: Document 08/25/20 11:01 DIANA (Rec: 08/25/20 11:08 DIANA [id number]) Nutrition Notes Need for Assessment generated from: MD Order Initial or Follow up Reassessment Current Diagnosis Acute Kidney Injury,Sepsis Other Pertinent Diagnosis COVID-19 (+), AMS, [place]'s, UTI, acute respiratory failure Current Diet NPO Labs/Tests Na 146 BUN 34 BG 167 Pertinent Medications Reviewed Height 5 ft 5 in Weight 74.4 kg [place] Body Weight (kg) 56.81 BMI 27.3 Weight Status Appropriate Subjective/Other Information MD consult for TF. Pt remains NPO per [employer]. Burn Absent Trauma Absent Difficulty In Chewing Usual Diet at Home unknown Skin Integrity/Comment Xavier Score 8 Current % PO Negligible Minimum of two criteria No Energy Intake (severe) < or equal to 50% Estimated Energy Requirement > or equal to 5 days #1 Nutrition Diagnosis Inadequate oral intake Diagnosis Progress(for reassessment Continues documentation) Is patient on ventilator? No Is Patient Ambulatory and/or Out of Bed No REE-(Lopez-St. Jeor-confined to bed) 1232.823 Calculation Used for Recommendations Lopez-St Jeor Additional Notes Protein: 75-89g (1-1.2g/kg) Fluid: 2220ml (30ml/kg) Nutrition Intervention Change Diet Order: Start TF Nutrition Support: Promote at 60ml/hr Flush 150 ml q4h for hypernatermia. Once resolved, flush 50ml q4h. Kcal 1,440 Protein (gm) 90 Fluid (mL) 1,208 Goal #1 Pt to meet >75% of energy and protein needs by TF Anticipated Discharge Needs: Unable to determine at this time Follow-Up By: 08/30/20 Additional Comments FU for TF start/tolerance
[2020-08-27] MEDS: levETIRAcetam 750 MG in DEXTROSE 5% IN WATER 100 ML IV SCH ×2 (09:42→21:16)
[2020-08-27] MEDS: PANTOPRAZOLE 40 MG INJ IV SCH ×2 (09:43→21:17)
[2020-08-27] MEDS: ENOXAPARIN 80 MG/0.8 ML INJ SUB-Q SCH (09:43)
[2020-08-27] MEDS: HYDROCORTISONE SOD SUCC 100 MG/2 ML VIAL IV SCH ×2 (09:43→21:17)
--- NOTE | 2020-08-27 13:43 | Gastroenterology Consultation ---
History of Present Illness - Reason for Consult Consult date: 08/27/20 hematochezia Requesting physician: YAMILETH ALVARADO - History of Present Illness The patient is a 80 yo aaf who presented with respiratory failure, COVID-19, and altered mental status. Patient non-verbal at present time and unable to provide history at time of exam, thus obtained from patient's nurse and chart review. Patient with anemia since admission, started on therapeutic lovenox empirically due to high D dimer per chart review. Developed episodes of hematochezia with clots yesterday and this morning. Lovenox has since been held, smaller amount of blood in diaper on exam today with oozing of blood on rectal exam. vitals stable. slow drop in H/h last 2 days. Past History Past Medical History: diabetes, hyperthyroidism, other (Pituitary insufficiency, secondary renal insufficiency) Past Surgical History: No surgical history Social history: full code, other (Lives in alf facility) Family history: hypertension Medications and Allergies Allergies Allergy/AdvReac Type Severity Reaction Status Date / Time No Known Allergies Allergy Unverified 08/18/20 14:45 Home Medications Medication Instructions Recorded Confirmed Last Taken Type Amlodipine Besylate [Norvasc] 5 mg PO DAILY 08/18/20 08/18/20 Unknown History AtorvaSTATin [Lipitor] 20 mg PO QHS 08/18/20 08/18/20 Unknown History Cholecalciferol (Vitamin D3) 2,000 unit PO QDAY 08/18/20 08/18/20 Unknown History [Vitamin D3 2,000 UNIT CAP] Cyanocobalamin [Vitamin B-12] 1,000 mcg PO DAILY 08/18/20 08/18/20 Unknown History Folic Acid 1 mg PO QDAY 08/18/20 08/18/20 Unknown History Hydrocortisone 5 mg PO QHS 08/18/20 08/18/20 Unknown History Hydrocortisone 10 mg PO QAM 08/18/20 08/18/20 Unknown History Levothyroxine [Synthroid] 50 mcg PO QAM 08/18/20 08/18/20 Unknown History Ramipril 10 mg PO DAILY 08/18/20 08/18/20 Unknown History levETIRAcetam [Keppra TAB] 750 mg PO BID 08/18/20 08/18/20 Unknown History Active Meds: Active Medications Lipase/Protease/Amylase (Lipase 10,500/Protease 25,000/Amylase 43,750 (Units) Dr Fernandez) 1 each FEEDTUBE PRN PRN PRN Reason: For Clogged Feeding Tube Atropine Sulfate (Atropine 1 Mg/Ml Vial) 1 mg IV PRN PRN PRN Reason: Bradycardia Hydrocortisone Sodium Succinate (Hydrocortisone Sod Succ 100 Mg/2 Ml Vial) 10 mg IV Q12HR [facility] Levetiracetam 750 mg/ Dextrose 107.5 mls @ 400 mls/hr IV Q12HR [facility] Last Admin: 08/27/20 09:42 Dose: 400 mls/hr Documented by: Dextrose/Sodium Chloride (D5/0.45ns) 1,000 mls @ 50 mls/hr IV DIRECT [facility] Last Admin: 08/26/20 18:34 Dose: 50 mls/hr Documented by: Levothyroxine Sodium (Levothyroxine 100 Mcg Inj) 25 mcg IV DAILY@0600 [facility] Last Admin: 08/27/20 05:38 Dose: 25 mcg Documented by: Pantoprazole Sodium (Pantoprazole 40 Mg Inj) 40 mg IV BID [facility] Last Admin: 08/27/20 09:43 Dose: 40 mg Documented by: Simple Syrup (Simple Syrup 15 Ml) 15 ml FEEDTUBE PRN PRN PRN Reason: Hypoglycemia Simple Syrup (Simple Syrup 15 Ml) 30 ml FEEDTUBE PRN PRN PRN Reason: Hypoglycemia Sodium Bicarbonate (Sodium Bicarbonate 325 Mg Tab) 325 mg FEEDTUBE PRN PRN PRN Reason: For Clogged Feeding Tube Reviewed/updated patient's home and current medications Review of Systems - Review of Systems ROS unobtainable: due to mental status Exam - Constitutional Vital Signs: Temp Pulse Resp BP Pulse Ox 98.1 F 70 16 112/36 100 08/27/20 04:52 08/27/20 04:52 08/27/20 04:52 08/27/20 04:52 08/27/20 04:52 General appearance: no acute distress, other (non-verbal) - Respiratory Respiratory effort: normal Respiratory: bilateral: CTA - Cardiovascular Rhythm: regular Heart Sounds: Present: S1 & S2 - Gastrointestinal General gastrointestinal: Present: soft, non-tender, non-distended Rectal Exam: stool bloody - Neurologic Neurological: other (nonverbal) - Labs CBC & Chem 7: 08/27/20 05:22 08/27/20 05:22 Lab Results: Laboratory Results - last 24 hr 08/26/20 08/26/20 08/27/20 18:20 23:50 05:22 WBC 18.0 H RBC 2.83 L Hgb 8.4 L 8.0 L 7.8 L Hct 26.1 L 24.6 L 24.1 L MCV 85 MCH 27 L MCHC 32 RDW 15.9 H Plt Count 263 Lymph % (Auto) 8.4 L [place] % (Auto) 4.1 Eos % (Auto) 0.5 Baso % (Auto) 0.1 Lymph # (Auto) 1.5 [place] # (Auto) 0.7 Eos # (Auto) 0.1 Baso # (Auto) 0.0 Seg Neutrophils % 86.9 H Seg Neutrophils # 15.6 H Sodium Potassium Chloride Carbon Dioxide Anion Gap BUN Creatinine Estimated GFR BUN/Creatinine Ratio Glucose Calcium 08/27/20 05:22 WBC RBC Hgb Hct MCV MCH MCHC RDW Plt Count Lymph % (Auto) [place] % (Auto) Eos % (Auto) Baso % (Auto) Lymph # (Auto) [place] # (Auto) Eos # (Auto) Baso # (Auto) Seg Neutrophils % Seg Neutrophils # Sodium 150 H Potassium 3.5 L Chloride 118.7 H Carbon Dioxide 27 Anion Gap 8 BUN 36 H Creatinine 0.6 Estimated GFR > 60 BUN/Creatinine Ratio 60 Glucose 201 H Calcium 8.4 Assessment and Plan 1. Hematochezia - new onset during hospitalization after starting therapeutic lovenox. slow drop in H/H. vitals stable. self-limiting oozing of blood on rectal exam. ? ano-rectal source. trend H/H and transfuse to keep hgb > 7. if signs of HD changes or worsening bleed, recommend stat bleeding scan. otherwise, monitor for now and trend labs. will follow-up tomorrow, and consider colonoscopy based on progress (would need NG tube placement with prep given that way most likely due to mentation if colonoscopy is to be done). 2. COVID-19 3. Altered mental status/? dementia
[2020-08-27 19:49] LABS: Hematocrit 21.3 % (30.3-42.9); Hemoglobin 6.8 gm/dl (10.1-14.3); Mean Corpuscular HGB Conc 32 % (30-34); Mean Corpuscular Volume 85 fl (79-97); Platelet Count 225 K/mm3 (140-440); Red Cell Distribution Width 16.1 % (13.2-15.2)
[2020-08-27] MEDS ORDERED: SODIUM CHLORIDE 0.9% 500 ML 500 ML IV ONE ×2 (20:30→23:45)
[2020-08-27 22:38] LABS: Band Neutrophils # (Manual) 0.8 K/mm3; Total Cells Counted 100
[2020-08-27 22:40] LABS: Burr Cells Rare; Ovalocytes Rare
[2020-08-27 22:41] LABS: Platelet Estimate Consistent w Auto
[2020-08-28] MEDS: LEVOTHYROXINE 100 MCG INJ IV SCH (06:12)
--- NOTE | 2020-08-28 08:45 | Progress Note ---
Assessment and Plan Altered mental status Covid 19 infection Paroxysmal atrial fibrillation Currently maintaining sinus rhythm Rectal bleeding s/p 1 unit PRBC transfusion Recommendations: Continue to hold anticoagulation Start po metoprolol once able to resume po meds Subjective Date of service: 08/28/20 Principal diagnosis: Acute encephalopathy Interval history: No events noted overnight on tele Objective Vital Signs Temp Pulse Pulse Resp BP Pulse Ox 08/28/20 05:06 97.8 F 88 16 132/51 100 08/28/20 04:25 97.6 F 76 16 139/56 100 08/28/20 03:59 97.6 F 76 19 139/56 100 08/28/20 03:29 98 F 82 18 136/58 08/28/20 02:59 97.9 F 81 19 132/74 100 08/28/20 02:29 97.9 F 79 19 130/58 100 08/28/20 01:59 97.6 F 80 17 127/60 99 08/28/20 01:29 98 F 78 16 125/57 100 08/28/20 00:59 98 F 75 17 125/52 100 08/28/20 00:44 98 F 78 17 138/59 100 08/27/20 22:00 78 78 18 100 08/27/20 21:24 98.0 F 76 16 122/45 100 08/27/20 16:56 86 100 08/27/20 10:28 98.3 F 60 22 117/43 100 - Physical Examination General: No Apparent Distress HEENT: Positive: PERRL Neuro: Positive: Weakness Abdomen: Positive: Soft Skin: Positive: Clear Extremities: Absent: edema - Labs and Meds CBC 08/27/20 Range/Units 19:45 WBC 20.9 H (4.5-11.0) K/mm3 RBC 2.50 L (3.65-5.03) M/mm3 Hgb 6.8 L (10.1-14.3) gm/dl Hct 21.3 L (30.3-42.9) % Plt Count 225 (140-440) K/mm3 - Imaging and Cardiology EKG: report reviewed
--- NOTE | 2020-08-28 09:59 | Progress Note ---
Assessment and Plan Assessment and plan: Acute toxic metabolic encephalopathy: Possibly secondary to infection versus decreased renal function. GI bleed/hematochezia. Nurse noted bloody stool on 08/26-08/27 UTI: Urine and blood cultures negative. Continue cefepime per ID recommendation Sepsis: Etiology secondary to above. Acute hypoxic respiratory failure: Currently on 3 L nasal cannula. Unclear if she has discharged on oxygen from bradycardia when she had Covid. 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 D-dimer noted to be 2409.7 and thus empirically started on therapeutic dose anticoagulation. PAWAN: Renally dose medications. 08/24/2020. Patient still mildly confused. However, I suspect patient has underlying Alzheimer's dementia and this is her baseline. I discussed plan of care and altered mentation with sister at [phone]. Patient will need DME of hospital bed and oxygen for discharge home. Await physical therapy recommendations. 08/25/2020. Patient still lethargic and confused. Patient receiving hydrocortisone 50 mg IV twice daily for adrenal insufficiency. Check B12, folate and ammonia levels. Neurology consultation pending. Continue supplemental oxygen to maintain sats greater than 92%. 08/26/2020. Encephalopathy likely secondary to toxic metabolic causes in the setting of leukocytosis, improving uremia, renal insufficiency, covid-19, underlying uti. Check CT head without contrast and EEG per neurology recommendations. However may need csf evaluation if brain imaging and eeg are unremarkable and pt continues to remain encephalopathic. Follow-up cortisol levels and T3-T4. 08/27/2020. Patient remains lethargic and confused. Encephalopathy is persistent and likely secondary to toxic metabolic causes from sepsis, renal insufficiency/uremia, COVID-[address] scan of the head found to be negative. Await EEG. Consider CSF evaluation if EEG unremarkable. Consult GI for further evaluation of hematochezia/GI bleed. Continue Protonix 40 mg IV twice daily. Transfuse for hemoglobin less than 7. Continue to monitor serial CBC. Lovenox discontinued which was empirically started for elevated D-dimer. Patient does have a history of chronic steroids for [place]'s disease. Decrease IV hydrocortisone. Follow-up cortisol levels and T3-T4. I updated the sister and family at [phone]. 08/28/2020. Follow-up EEG per neurology. GI reports if signs of hemodynamic changes, we will proceed with stat bleeding scan. Hemoglobin has dropped to 6 .8. Type and cross and transfuse 2 units. Continue to hold anticoagulation. Continue Protonix 40 mg IV twice daily. Nursing reports inability to place NG tube. Place PICC line and start TPN. Dietitian consulted. ? NG tube placement under fluoroscopy. Patient may need PEG tube placement History Interval history: Patient with less hematochezia last evening. Patient still lethargic and confused. Hospitalist Physical - Constitutional Vitals: Temp Pulse Resp BP Pulse Ox 97.8 F 88 16 132/51 100 08/28/20 05:06 08/28/20 05:06 08/28/20 05:06 08/28/20 05:06 08/28/20 05:06 General appearance: Present: no acute distress, well-nourished, other (Lethargic and confused) - EENT Eyes: Present: PERRL, EOM intact ENT: hearing intact, clear oral mucosa, dentition normal - Neck Neck: Present: supple, normal ROM - Respiratory Respiratory effort: normal Respiratory: bilateral: CTA - Cardiovascular Rhythm: regular Heart Sounds: Present: S1 & S2. Absent: gallop, rub - Extremities Extremities: no ischemia, No edema, Full ROM - Abdominal General gastrointestinal: soft, non-tender, non-distended, normal bowel sounds - Integumentary Integumentary: Present: clear, warm, dry - Neurologic Neurologic: CNII-XII intact, moves all extremities HEART Score - HEART Score Troponin: Troponin T 0.075 ng/mL (0.00-0.029) H 08/18/20 18:25 Troponin: 1-3x normal limit - Critical Actions Critical Actions: 4-6 pts:12-16.6% risk of adverse cardiac event. Should be admitted Results - Labs CBC & Chem 7: 08/27/20 19:45 08/27/20 05:22 Labs: Laboratory Last Values WBC 20.9 K/mm3 (4.5-11.0) H 08/27/20 19:45 RBC 2.50 M/mm3 (3.65-5.03) L 08/27/20 19:45 Hgb 6.8 gm/dl (10.1-14.3) L 08/27/20 19:45 Hct 21.3 % (30.3-42.9) L 08/27/20 19:45 MCV 85 fl (79-97) 08/27/20 19:45 MCH 27 pg (28-32) L 08/27/20 19:45 MCHC 32 % (30-34) 08/27/20 19:45 RDW 16.1 % (13.2-15.2) H 08/27/20 19:45 Plt Count 225 K/mm3 (140-440) 08/27/20 19:45 Lymph % (Auto) 8.4 % (13.4-35.0) L 08/27/20 05:22 [place] % (Auto) 4.1 % (0.0-7.3) 08/27/20 05:22 Eos % (Auto) 0.5 % (0.0-4.3) 08/27/20 05:22 Baso % (Auto) 0.1 % (0.0-1.8) 08/27/20 05:22 Lymph # (Auto) 1.5 K/mm3 (1.2-5.4) 08/27/20 05:22 [place] # (Auto) 0.7 K/mm3 (0.0-0.8) 08/27/20 05:22 Eos # (Auto) 0.1 K/mm3 (0.0-0.4) 08/27/20 05:22 Baso # (Auto) 0.0 K/mm3 (0.0-0.1) 08/27/20 05:22 Add Manual Diff Complete 08/27/20 19:45 Total Counted 100 08/27/20 19:45 Seg Neutrophils % 86.9 % (40.0-70.0) H 08/27/20 05:22 Seg Neuts % (Manual) 82.0 % (40.0-70.0) H 08/27/20 19:45 Band Neutrophils % 4.0 % 08/27/20 19:45 Lymphocytes % (Manual) 7.0 % (13.4-35.0) L 08/27/20 19:45 Monocytes % (Manual) 6.0 % (0.0-7.3) 08/27/20 19:45 Metamyelocytes % 1.0 % 08/27/20 19:45 Nucleated RBC % Not Reportable 08/27/20 19:45 Seg Neutrophils # 15.6 K/mm3 (1.8-7.7) H 08/27/20 05:22 Seg Neutrophils # Man 17.1 K/mm3 (1.8-7.7) H 08/27/20 19:45 Band Neutrophils # 0.8 K/mm3 08/27/20 19:45 Lymphocytes # (Manual) 1.5 K/mm3 (1.2-5.4) 08/27/20 19:45 Abs React Lymphs (Man) 0.0 K/mm3 08/27/20 19:45 Monocytes # (Manual) 1.3 K/mm3 (0.0-0.8) H 08/27/20 19:45 Eosinophils # (Manual) 0.0 K/mm3 (0.0-0.4) 08/27/20 19:45 Basophils # (Manual) 0.0 K/mm3 (0.0-0.1) 08/27/20 19:45 Metamyelocytes # 0.2 K/mm3 08/27/20 19:45 Myelocytes # 0.0 K/mm3 08/27/20 19:45 Promyelocytes # 0.0 K/mm3 08/27/20 19:45 Blast Cells # 0.0 K/mm3 08/27/20 19:45 WBC Morphology Not Reportable 08/27/20 19:45 Hypersegmented Neuts Not Reportable 08/27/20 19:45 Hyposegmented Neuts Not Reportable 08/27/20 19:45 Hypogranular Neuts Not Reportable 08/27/20 19:45 Smudge Cells Not Reportable 08/27/20 19:45 Toxic Granulation Not Reportable 08/27/20 19:45 Toxic Vacuolation Not Reportable 08/27/20 19:45 Dohle Bodies Not Reportable 08/27/20 19:45 Pelger-Huet Anomaly Not Reportable 08/27/20 19:45 Mraie Rods Not Reportable 08/27/20 19:45 Platelet Estimate Consistent w auto 08/27/20 19:45 Clumped Platelets Not Reportable 08/27/20 19:45 Plt Clumps, EDTA Not Reportable 08/27/20 19:45 Large Platelets Not Reportable 08/27/20 19:45 Giant Platelets Not Reportable 08/27/20 19:45 Platelet Satelliting Not Reportable 08/27/20 19:45 Plt Morphology Comment Not Reportable 08/27/20 19:45 RBC Morphology Not Reportable 08/27/20 19:45 Dimorphic RBCs Not Reportable 08/27/20 19:45 Polychromasia Not Reportable 08/27/20 19:45 Hypochromasia Not Reportable 08/27/20 19:45 Poikilocytosis Not Reportable 08/27/20 19:45 Anisocytosis Not Reportable 08/27/20 19:45 Microcytosis Not Reportable 08/27/20 19:45 Macrocytosis Not Reportable 08/27/20 19:45 Spherocytes Not Reportable 08/27/20 19:45 Pappenheimer Bodies Not Reportable 08/27/20 19:45 Sickle Cells Not Reportable 08/27/20 19:45 Target Cells Not Reportable 08/27/20 19:45 Tear Drop Cells Not Reportable 08/27/20 19:45 Ovalocytes Rare 08/27/20 19:45 Helmet Cells Not Reportable 08/27/20 19:45 [place] Bodies Not Reportable 08/27/20 19:45 [place] Rings Not Reportable 08/27/20 19:45 [place]ren Cells Rare 08/27/20 19:45 Bite Cells Not Reportable 08/27/20 19:45 Crenated Cell Not Reportable 08/27/20 19:45 Elliptocytes Not Reportable 08/27/20 19:45 Acanthocytes (Spur) Rare 08/27/20 19:45 Rouleaux Not Reportable 08/27/20 19:45 Hemoglobin C Crystals Not Reportable 08/27/20 19:45 Schistocytes Not Reportable 08/27/20 19:45 Malaria parasites Not Reportable 08/27/20 19:45 Payam Bodies Not Reportable 08/27/20 19:45 Hem Pathologist Commnt No 08/27/20 19:45 D-Dimer 2409.74 ng/mlDDU (0-234) H 08/18/20 Unknown Sodium 150 mmol/L (137-145) H 08/27/20 05:22 Potassium 3.5 mmol/L (3.6-5.0) L 08/27/20 05:22 Chloride 118.7 mmol/L (98-107) H 08/27/20 05:22 Carbon Dioxide 27 mmol/L (22-30) 08/27/20 05:22 Anion Gap 8 mmol/L 08/27/20 05:22 BUN 36 mg/dL (7-17) H 08/27/20 05:22 Creatinine 0.6 mg/dL (0.6-1.2) 08/27/20 05:22 Estimated GFR > 60 ml/min 08/27/20 05:22 BUN/Creatinine Ratio 60 % 08/27/20 05:22 Glucose 201 mg/dL (65-100) H 08/27/20 05:22 POC Glucose 206 mg/dL (70-105) H 08/23/20 15:31 Lactic Acid 1.00 mmol/L (0.7-2.0) 08/18/20 18:25 Calcium 8.4 mg/dL (8.4-10.2) 08/27/20 05:22 Ferritin 1950.0 ng/mL (10.0-200.0) H 08/18/20 15:35 Total Bilirubin 1.10 mg/dL (0.1-1.2) 08/18/20 15:35 AST 38 units/L (5-40) 08/18/20 15:35 ALT 11 units/L (7-56) 08/18/20 15:35 Alkaline Phosphatase 57 units/L (35-129) 08/18/20 15:35 Ammonia 32.0 umol/L (25-60) 08/25/20 09:06 Lactate Dehydrogenase 228 units/L (91-180) H 08/18/20 15:35 Total Creatine Kinase 164 units/L (30-135) H 08/22/20 19:44 Troponin T 0.075 ng/mL (0.00-0.029) H 08/18/20 18:25 C-Reactive Protein 35.60 mg/dL (0.00-1.30) H 08/18/20 15:35 Total Protein 6.2 g/dL (6.3-8.2) L 08/18/20 15:35 Albumin 2.1 g/dL (3.9-5) L 08/18/20 15:35 Albumin/Globulin Ratio 0.5 % 08/18/20 15:35 Triglycerides 60 mg/dL (2-149) 08/18/20 18:25 Cholesterol 79 mg/dL (50-199) 08/18/20 18:25 LDL Cholesterol Direct 42 mg/dL (50-130) L 08/18/20 18:25 HDL Cholesterol 23 mg/dL (40-59) L 08/18/20 18:25 Cholesterol/HDL Ratio 3.43 % 08/18/20 18:25 Vitamin B12 721.0 pg/mL (211-911) 08/25/20 09:06 Folate 8.34 ng/mL (7.3-26.0) 08/25/20 09:06 Procalcitonin 4.00 ng/mL (<0.15) 08/18/20 15:35 TSH 0.056 mlU/mL (0.270-4.200) L 08/24/20 17:02 Free T4 1.59 ng/dL (0.76-1.46) H 08/26/20 10:22 Urine Color Jacqueline (Yellow) 08/18/20 Unknown Urine Turbidity Hazy (Clear) 08/18/20 Unknown Urine pH 5.0 (5.0-7.0) 08/18/20 Unknown Ur Specific [place] 1.020 (1.003-1.030) 08/18/20 Unknown Urine Protein 30 mg/dl mg/dL (Negative) 08/18/20 Unknown Urine Glucose (UA) 50 mg/dL (Negative) 08/18/20 Unknown Urine Ketones Neg mg/dL (Negative) 08/18/20 Unknown Urine Blood Neg (Negative) 08/18/20 Unknown Urine Nitrite Neg (Negative) 08/18/20 Unknown Urine Bilirubin Neg (Negative) 08/18/20 Unknown Urine Urobilinogen 4.0 mg/dL (<2.0) 08/18/20 Unknown Ur Leukocyte Esterase Tr (Negative) 08/18/20 Unknown Urine WBC (Auto) 41.0 /HPF (0.0-6.0) H 08/18/20 Unknown Urine RBC (Auto) 4.0 /HPF (0.0-6.0) 08/18/20 Unknown U Epithel Cells (Auto) 1.0 /HPF (0-13.0) 08/18/20 Unknown Urine Mucus 3+ /HPF 08/18/20 Unknown Random Vancomycin 9.8 ug/mL (0-40.0) 08/19/20 19:02 Coronavirus (PCR) Positive (Negative) A 08/24/20 Unknown Blood Type O POSITIVE 08/27/20 20:44 Antibody Screen Negative 08/27/20 20:44 Crossmatch See Detail 08/27/20 20:44 [place]/IV: Voiding Method Indwelling Catheter IV Catheter Type [Left Triple Lumen Cath Internal Jugular] IV Catheter Type [Left] CVL Active Medications - Current Medications Current Medications: Generic Name Dose Route Start Last Admin Trade Name Freq PRN Reason Stop Dose Admin Lipase/Protease/Amylase 1 each 08/25/20 16:57 Lipase 10,500/Protease 25,000/Amylase 43,750 (Units) Dr Fernandez FEEDTUBE PRN PRN For Clogged Feeding Tube Atropine Sulfate 1 mg 08/23/20 16:56 Atropine 1 Mg/Ml Vial IV PRN PRN Bradycardia Hydrocortisone Sodium Succinate 10 mg 08/27/20 10:07 08/27/20 21:17 Hydrocortisone Sod Succ 100 Mg/2 Ml Vial IV 10 mg Q12HR BARBARA Administration Levetiracetam 750 mg/ Dextrose 107.5 mls @ 400 mls/hr 08/24/20 12:00 08/27/20 21:16 IV 400 mls/hr Q12HR BARBARA Administration Dextrose/Sodium Chloride 1,000 mls @ 50 mls/hr 08/26/20 18:00 08/26/20 18:34 D5/0.45ns IV 50 mls/hr DIRECT BARBARA Administration Levothyroxine Sodium 25 mcg 08/24/20 13:00 08/28/20 06:12 Levothyroxine 100 Mcg Inj IV 25 mcg DAILY@0600 BARBARA Administration Pantoprazole Sodium 40 mg 08/26/20 22:00 08/27/20 21:17 Pantoprazole 40 Mg Inj IV 40 mg BID BARBARA Administration Simple Syrup 15 ml 08/25/20 15:57 Simple Syrup 15 Ml FEEDTUBE PRN PRN Hypoglycemia Simple Syrup 30 ml 08/25/20 15:57 Simple Syrup 15 Ml FEEDTUBE PRN PRN Hypoglycemia Sodium Bicarbonate 325 mg 08/25/20 15:57 Sodium Bicarbonate 325 Mg Tab FEEDTUBE PRN PRN For Clogged Feeding Tube Nutrition/Malnutrition Assess - Dietary Evaluation Nutrition/Malnutrition Findings: Nutrition Notes Start: 08/23/20 10:57 Freq: Status: Active Protocol: Document 08/25/20 11:01 DIANA (Rec: 08/25/20 11:08 DIANA [id number]) Nutrition Notes Need for Assessment generated from: MD Order Initial or Follow up Reassessment Current Diagnosis Acute Kidney Injury,Sepsis Other Pertinent Diagnosis COVID-19 (+), AMS, [place]'s, UTI, acute respiratory failure Current Diet NPO Labs/Tests Na 146 BUN 34 BG 167 Pertinent Medications Reviewed Height 5 ft 5 in Weight 74.4 kg [place] Body Weight (kg) 56.81 BMI 27.3 Weight Status Appropriate Subjective/Other Information MD consult for TF. Pt remains NPO per SALES COACH. Burn Absent Trauma Absent Difficulty In Chewing Usual Diet at Home unknown Skin Integrity/Comment Xavier Score 8 Current % PO Negligible Minimum of two criteria No Energy Intake (severe) < or equal to 50% Estimated Energy Requirement > or equal to 5 days #1 Nutrition Diagnosis Inadequate oral intake Diagnosis Progress(for reassessment Continues documentation) Is patient on ventilator? No Is Patient Ambulatory and/or Out of Bed No REE-([place] Jeor-confined to bed) [phone] Calculation Used for Recommendations [place] Jeor Additional Notes Protein: 75-89g (1-1.2g/kg) Fluid: 2220ml (30ml/kg) Nutrition Intervention Change Diet Order: Start TF Nutrition Support: Promote at 60ml/hr Flush 150 ml q4h for hypernatermia. Once resolved, flush 50ml q4h. Kcal 1,440 Protein (gm) 90 Fluid (mL) 1,208 Goal #1 Pt to meet >75% of energy and protein needs by TF Anticipated Discharge Needs: Unable to determine at this time Follow-Up By: 08/30/20 Additional Comments FU for TF start/tolerance
[2020-08-28] MEDS: levETIRAcetam 750 MG in DEXTROSE 5% IN WATER 100 ML IV SCH (10:19)
[2020-08-28] MEDS: HYDROCORTISONE SOD SUCC 100 MG/2 ML VIAL IV SCH (10:20)
[2020-08-28] MEDS: PANTOPRAZOLE 40 MG INJ IV SCH (10:20)
[2020-08-28 10:48] LABS: Blood Urea Nitrogen 37 mg/dL (7-17); Calcium 8.4 mg/dL (8.4-10.2); Hemolysis Index 6
[2020-08-28 10:55] LABS: BUN/Creatinine Ratio 62
[2020-08-28] MEDS ORDERED: SODIUM CHLORIDE 0.9% 500 ML 500 ML IV ONE ×2 (11:00→15:00)
[2020-08-28 11:33] LABS: Hematocrit 26.1 % (30.3-42.9); Hemoglobin 8.4 gm/dl (10.1-14.3); Mean Corpuscular HGB Conc 32 % (30-34); Mean Corpuscular Volume 86 fl (79-97); Red Blood Count 3.01 M/mm3 (3.65-5.03)
[2020-08-28 11:34] LABS: Platelet Count 177 K/mm3 (140-440); Red Cell Distribution Width 15.4 % (13.2-15.2)
[2020-08-28 11:36] LABS: Band Neutrophils # (Manual) 0.2 K/mm3; Total Cells Counted 100
[2020-08-28 11:38] LABS: Platelet Estimate Consistent w Auto; Target Cells Few
--- NOTE | 2020-08-28 13:11 | Gastroenterology Progress Note ---
Assessment and Plan Hematochezia - drop in H/h, improved on f/u labs; blood transfusions still pending. less amount today after stopping lovenox. pt not able to take prep for colonsocopy with current mental status. if hematochezia persists and H/H continues to drop, NG tube will need to be placed to administer prep. can see how pt does overnight and re-assess tomorrow. if labs stabilize, and hematochezia subsides, would prefer to manage conservatively given overall health/co-morbidities and current mentation Subjective Date of service: 08/28/20 Principal diagnosis: Acute encephalopathy Interval history: pt with blood in diaper this afternoon. less from previous days. non-verbal Objective - Constitutional Vitals: Temp Pulse Resp BP Pulse Ox 97.8 F 88 16 132/51 100 08/28/20 05:06 08/28/20 05:06 08/28/20 10:00 08/28/20 05:06 08/28/20 05:06 General appearance: other (non-verbal) - Cardiovascular Rhythm: regular Heart Sounds: Present: S1 & S2 - Gastrointestinal General gastrointestinal: Present: soft, non-distended - Labs CBC & Chem 7: 08/28/20 10:07 08/28/20 10:07 Labs: Laboratory Results - last 24 hr 08/27/20 08/27/20 08/28/20 19:45 20:44 10:07 WBC 20.9 H RBC 2.50 L Hgb 6.8 L Hct 21.3 L MCV 85 MCH 27 L MCHC 32 RDW 16.1 H Plt Count 225 Add Manual Diff Complete Total Counted 100 Seg Neuts % (Manual) 82.0 H Band Neutrophils % 4.0 Lymphocytes % (Manual) 7.0 L Reactive Lymphs % (Man) Monocytes % (Manual) 6.0 Metamyelocytes % 1.0 Nucleated RBC % Not Reportable Seg Neutrophils # Man 17.1 H Band Neutrophils # 0.8 Lymphocytes # (Manual) 1.5 Abs React Lymphs (Man) 0.0 Monocytes # (Manual) 1.3 H Eosinophils # (Manual) 0.0 Basophils # (Manual) 0.0 Metamyelocytes # 0.2 Myelocytes # 0.0 Promyelocytes # 0.0 Blast Cells # 0.0 WBC Morphology Not Reportable Hypersegmented Neuts Not Reportable Hyposegmented Neuts Not Reportable Hypogranular Neuts Not Reportable Smudge Cells Not Reportable Toxic Granulation Not Reportable Toxic Vacuolation Not Reportable Dohle Bodies Not Reportable Pelger-Huet Anomaly Not Reportable Marie Rods Not Reportable Platelet Estimate Consistent w auto Clumped Platelets Not Reportable Plt Clumps, EDTA Not Reportable Large Platelets Not Reportable Giant Platelets Not Reportable Platelet Satelliting Not Reportable Plt Morphology Comment Not Reportable RBC Morphology Not Reportable Dimorphic RBCs Not Reportable Polychromasia Not Reportable Hypochromasia Not Reportable Poikilocytosis Not Reportable Anisocytosis Not Reportable Microcytosis Not Reportable Macrocytosis Not Reportable Spherocytes Not Reportable Pappenheimer Bodies Not Reportable Sickle Cells Not Reportable Target Cells Not Reportable Tear Drop Cells Not Reportable Ovalocytes Rare Helmet Cells Not Reportable [place] Bodies Not Reportable [place] Rings Not Reportable [place] Cells Rare Bite Cells Not Reportable Crenated Cell Not Reportable Elliptocytes Not Reportable Acanthocytes (Spur) Rare Rouleaux Not Reportable Hemoglobin C Crystals Not Reportable Schistocytes Not Reportable Malaria parasites Not Reportable Payam Bodies Not Reportable Hem Pathologist Commnt No Sodium 149 H Potassium 3.5 L Chloride 119.3 H Carbon Dioxide 26 Anion Gap 7 BUN 37 H Creatinine 0.6 Estimated GFR > 60 BUN/Creatinine Ratio 62 Glucose 137 H Calcium 8.4 Blood Type O POSITIVE Antibody Screen Negative Crossmatch See Detail 08/28/20 08/28/20 10:07 10:07 WBC 20.5 H RBC 3.01 L Hgb 8.4 L Hct 26.1 L MCV 86 MCH 28 MCHC 32 RDW 15.4 H Plt Count 177 Add Manual Diff Complete Total Counted 100 Seg Neuts % (Manual) 90.0 H Band Neutrophils % 1.0 Lymphocytes % (Manual) 3.0 L Reactive Lymphs % (Man) 1.0 Monocytes % (Manual) 3.0 Metamyelocytes % 2.0 Nucleated RBC % Not Reportable Seg Neutrophils # Man 18.5 H Band Neutrophils # 0.2 Lymphocytes # (Manual) 0.6 L Abs React Lymphs (Man) 0.2 Monocytes # (Manual) 0.6 Eosinophils # (Manual) 0.0 Basophils # (Manual) 0.0 Metamyelocytes # 0.4 Myelocytes # 0.0 Promyelocytes # 0.0 Blast Cells # 0.0 WBC Morphology Not Reportable TNR Hypersegmented Neuts Not Reportable Hyposegmented Neuts Not Reportable Hypogranular Neuts Not Reportable Smudge Cells Not Reportable Toxic Granulation Not Reportable Toxic Vacuolation Not Reportable Dohle Bodies Not Reportable Pelger-Huet Anomaly Not Reportable Marie Rods Not Reportable Platelet Estimate Consistent w auto Clumped Platelets Not Reportable Plt Clumps, EDTA Not Reportable Large Platelets Not Reportable Giant Platelets Not Reportable Platelet Satelliting Not Reportable Plt Morphology Comment Not Reportable RBC Morphology Not Reportable Dimorphic RBCs Not Reportable Polychromasia Not Reportable Hypochromasia Not Reportable Poikilocytosis Not Reportable Anisocytosis Not Reportable Microcytosis Not Reportable Macrocytosis Not Reportable Spherocytes Not Reportable Pappenheimer Bodies Not Reportable Sickle Cells Not Reportable Target Cells Few Tear Drop Cells Not Reportable Ovalocytes Not Reportable Helmet Cells Not Reportable [place] Bodies Not Reportable [place] Rings Not Reportable [place] Cells Not Reportable Bite Cells Not Reportable Crenated Cell Not Reportable Elliptocytes Not Reportable Acanthocytes (Spur) Not Reportable Rouleaux Not Reportable Hemoglobin C Crystals Not Reportable Schistocytes Not Reportable Malaria parasites Not Reportable Payam Bodies Not Reportable Hem Pathologist Commnt No Sodium Potassium Chloride Carbon Dioxide Anion Gap BUN Creatinine Estimated GFR BUN/Creatinine Ratio Glucose Calcium Blood Type Antibody Screen Crossmatch
[2020-08-28] MEDS ORDERED: DEXTROSE 10% IV SCH (20:00)
[2020-08-28] MEDS ORDERED: AMINO ACIDS IV SCH (20:00)
[2020-08-29] MEDS: HYDROCORTISONE SOD SUCC 100 MG/2 ML VIAL IV SCH ×3 (00:35→21:17)
[2020-08-29] MEDS: PANTOPRAZOLE 40 MG INJ IV SCH ×3 (00:36→21:18)
[2020-08-29] MEDS: levETIRAcetam 750 MG in DEXTROSE 5% IN WATER 100 ML IV SCH ×3 (00:36→21:17)
[2020-08-29] MEDS ORDERED: DEXTROSE 10% IV SCH (04:00)
[2020-08-29] MEDS ORDERED: AMINO ACIDS IV SCH (04:00)
[2020-08-29 06:14] LABS: Hemoglobin 11.5 gm/dl (10.1-14.3); Mean Corpuscular HGB Conc 33 % (30-34); Mean Corpuscular Volume 87 fl (79-97); Platelet Count 148 K/mm3 (140-440); Red Blood Count 4.02 M/mm3 (3.65-5.03); Red Cell Distribution Width 15.2 % (13.2-15.2)
[2020-08-29 06:16] LABS: Lymphocytes # (Auto) 1.3 K/mm3 (1.2-5.4); Lymphocytes % (Auto) 6.3 % (13.4-35.0); Monocytes # (Auto) 0.8 K/mm3 (0.0-0.8)
[2020-08-29 06:29] LABS: Alanine Aminotransferase 9 units/L (7-56); Albumin 2.4 g/dL (3.9-5); Blood Urea Nitrogen 32 mg/dL (7-17); Calcium 8.3 mg/dL (8.4-10.2); Hemolysis Index 8
[2020-08-29 06:42] LABS: BUN/Creatinine Ratio 64
--- NOTE | 2020-08-29 08:58 | Progress Note ---
Assessment and Plan Assessment and plan: Acute toxic metabolic encephalopathy: Possibly secondary to infection versus decreased renal function. GI bleed/hematochezia. Nurse noted bloody stool on 08/26-08/27 UTI: Urine and blood cultures negative. Continue cefepime per ID recommendation Sepsis: Etiology secondary to above. Acute hypoxic respiratory failure: Currently on 3 L nasal cannula. Unclear if she has discharged on oxygen from bradycardia when she had Covid. 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 D-dimer noted to be 2409.7 and thus empirically started on therapeutic dose anticoagulation. PAWAN: Renally dose medications. 08/24/2020. Patient still mildly confused. However, I suspect patient has underlying Alzheimer's dementia and this is her baseline. I discussed plan of care and altered mentation with sister at [phone]. Patient will need DME of hospital bed and oxygen for discharge home. Await physical therapy recommendations. 08/25/2020. Patient still lethargic and confused. Patient receiving hydrocortisone 50 mg IV twice daily for adrenal insufficiency. Check B12, folate and ammonia levels. Neurology consultation pending. Continue supplemental oxygen to maintain sats greater than 92%. 08/26/2020. Encephalopathy likely secondary to toxic metabolic causes in the setting of leukocytosis, improving uremia, renal insufficiency, covid-19, underlying uti. Check CT head without contrast and EEG per neurology recommendations. However may need csf evaluation if brain imaging and eeg are unremarkable and pt continues to remain encephalopathic. Follow-up cortisol levels and T3-T4. 08/27/2020. Patient remains lethargic and confused. Encephalopathy is persistent and likely secondary to toxic metabolic causes from sepsis, renal insufficiency/uremia, COVID-[address] scan of the head found to be negative. Await EEG. Consider CSF evaluation if EEG unremarkable. Consult GI for further evaluation of hematochezia/GI bleed. Continue Protonix 40 mg IV twice daily. Transfuse for hemoglobin less than 7. Continue to monitor serial CBC. Lovenox discontinued which was empirically started for elevated D-dimer. 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 Decrease IV hydrocortisone. Follow-up cortisol levels and T3-T4. I updated the sister and family at [phone]. 08/28/2020. Follow-up EEG per neurology. GI reports if signs of hemodynamic changes, we will proceed with stat bleeding scan. Hemoglobin has dropped to 6 .8. Type and cross and transfuse 2 units. Continue to hold anticoagulation. Continue Protonix 40 mg IV twice daily. Nursing reports inability to place NG tube. Place PICC line and start TPN. Dietitian consulted. ? NG tube placement under fluoroscopy. Patient may need PEG tube placement. 08/29/2020. Patient is s/p 3 units PRBCs. Hemoglobin has stabilized to 11.5. Continue to trend and follow serial H/H. Patient remains hemodynamically stable. If patient has a change, we will proceed with stat bleeding scan. GI following. Continue Protonix 40 mg IV twice daily. Continue to hold a nticoagulation. Nursing reports inability to place NG tube. PICC line placed to initiate TPN. Dietitian consulted. ? NG tube placement under fluoroscopy. Patient may need PEG tube placement. History Interval history: No new episodes of hematochezia reported. Patient still lethargic and confused. Hospitalist Physical - Constitutional Vitals: Temp Pulse Resp BP Pulse Ox 98.7 F 69 16 173/76 100 08/29/20 04:19 08/29/20 04:19 08/29/20 04:19 08/29/20 04:19 08/29/20 04:19 General appearance: Present: no acute distress, well-nourished, other (Lethargic and confused) - EENT Eyes: Present: PERRL, EOM intact ENT: hearing intact, clear oral mucosa, dentition normal - Neck Neck: Present: supple, normal ROM - Respiratory Respiratory effort: normal Respiratory: bilateral: CTA - Cardiovascular Rhythm: regular Heart Sounds: Present: S1 & S2. Absent: gallop, rub - Extremities Extremities: no ischemia, No edema, Full ROM - Abdominal General gastrointestinal: soft, non-tender, non-distended, normal bowel sounds - Integumentary Integumentary: Present: clear, warm, dry - Neurologic Neurologic: CNII-XII intact, moves all extremities HEART Score - HEART Score Troponin: Troponin T 0.075 ng/mL (0.00-0.029) H 08/18/20 18:25 Troponin: 1-3x normal limit - Critical Actions Critical Actions: 4-6 pts:12-16.6% risk of adverse cardiac event. Should be admitted Results - Labs CBC & Chem 7: 08/29/20 05:43 08/29/20 05:43 Labs: Laboratory Last Values WBC 20.5 K/mm3 (4.5-11.0) H 08/29/20 05:43 RBC 4.02 M/mm3 (3.65-5.03) 08/29/20 05:43 Hgb 11.5 gm/dl (10.1-14.3) D 08/29/20 05:43 Hct 35.0 % (30.3-42.9) D 08/29/20 05:43 MCV 87 fl (79-97) 08/29/20 05:43 MCH 29 pg (28-32) 08/29/20 05:43 MCHC 33 % (30-34) 08/29/20 05:43 RDW 15.2 % (13.2-15.2) 08/29/20 05:43 Plt Count 148 K/mm3 (140-440) 08/29/20 05:43 Lymph % (Auto) 6.3 % (13.4-35.0) L 08/29/20 05:43 [place] % (Auto) 4.0 % (0.0-7.3) 08/29/20 05:43 Eos % (Auto) 0.0 % (0.0-4.3) 08/29/20 05:43 Baso % (Auto) 0.0 % (0.0-1.8) 08/29/20 05:43 Lymph # (Auto) 1.3 K/mm3 (1.2-5.4) 08/29/20 05:43 [place] # (Auto) 0.8 K/mm3 (0.0-0.8) 08/29/20 05:43 Eos # (Auto) 0.0 K/mm3 (0.0-0.4) 08/29/20 05:43 Baso # (Auto) 0.0 K/mm3 (0.0-0.1) 08/29/20 05:43 Add Manual Diff Complete 08/28/20 10:07 Total Counted 100 08/28/20 10:07 Seg Neutrophils % 89.7 % (40.0-70.0) H 08/29/20 05:43 Seg Neuts % (Manual) 90.0 % (40.0-70.0) H 08/28/20 10:07 Band Neutrophils % 1.0 % 08/28/20 10:07 Lymphocytes % (Manual) 3.0 % (13.4-35.0) L 08/28/20 10:07 Reactive Lymphs % (Man) 1.0 % 08/28/20 10:07 Monocytes % (Manual) 3.0 % (0.0-7.3) 08/28/20 10:07 Metamyelocytes % 2.0 % 08/28/20 10:07 Nucleated RBC % Not Reportable 08/28/20 10:07 Seg Neutrophils # 18.4 K/mm3 (1.8-7.7) H 08/29/20 05:43 Seg Neutrophils # Man 18.5 K/mm3 (1.8-7.7) H 08/28/20 10:07 Band Neutrophils # 0.2 K/mm3 08/28/20 10:07 Lymphocytes # (Manual) 0.6 K/mm3 (1.2-5.4) L 08/28/20 10:07 Abs React Lymphs (Man) 0.2 K/mm3 08/28/20 10:07 Monocytes # (Manual) 0.6 K/mm3 (0.0-0.8) 08/28/20 10:07 Eosinophils # (Manual) 0.0 K/mm3 (0.0-0.4) 08/28/20 10:07 Basophils # (Manual) 0.0 K/mm3 (0.0-0.1) 08/28/20 10:07 Metamyelocytes # 0.4 K/mm3 08/28/20 10:07 Myelocytes # 0.0 K/mm3 08/28/20 10:07 Promyelocytes # 0.0 K/mm3 08/28/20 10:07 Blast Cells # 0.0 K/mm3 08/28/20 10:07 WBC Morphology Not Reportable 08/28/20 10:07 WBC Morphology TNR 08/28/20 10:07 Hypersegmented Neuts Not Reportable 08/28/20 10:07 Hyposegmented Neuts Not Reportable 08/28/20 10:07 Hypogranular Neuts Not Reportable 08/28/20 10:07 Smudge Cells Not Reportable 08/28/20 10:07 Toxic Granulation Not Reportable 08/28/20 10:07 Toxic Vacuolation Not Reportable 08/28/20 10:07 Dohle Bodies Not Reportable 08/28/20 10:07 Pelger-Huet Anomaly Not Reportable 08/28/20 10:07 Marie Rods Not Reportable 08/28/20 10:07 Platelet Estimate Consistent w auto 08/28/20 10:07 Clumped Platelets Not Reportable 08/28/20 10:07 Plt Clumps, EDTA Not Reportable 08/28/20 10:07 Large Platelets Not Reportable 08/28/20 10:07 Giant Platelets Not Reportable 08/28/20 10:07 Platelet Satelliting Not Reportable 08/28/20 10:07 Plt Morphology Comment Not Reportable 08/28/20 10:07 RBC Morphology Not Reportable 08/28/20 10:07 Dimorphic RBCs Not Reportable 08/28/20 10:07 Polychromasia Not Reportable 08/28/20 10:07 Hypochromasia Not Reportable 08/28/20 10:07 Poikilocytosis Not Reportable 08/28/20 10:07 Anisocytosis Not Reportable 08/28/20 10:07 Microcytosis Not Reportable 08/28/20 10:07 Macrocytosis Not Reportable 08/28/20 10:07 Spherocytes Not Reportable 08/28/20 10:07 Pappenheimer Bodies Not Reportable 08/28/20 10:07 Sickle Cells Not Reportable 08/28/20 10:07 Target Cells Few 08/28/20 10:07 Tear Drop Cells Not Reportable 08/28/20 10:07 Ovalocytes Not Reportable 08/28/20 10:07 Helmet Cells Not Reportable 08/28/20 10:07 [place] Bodies Not Reportable 08/28/20 10:07 [place] Rings Not Reportable 08/28/20 10:07 Darren Cells Not Reportable 08/28/20 10:07 Bite Cells Not Reportable 08/28/20 10:07 Crenated Cell Not Reportable 08/28/20 10:07 Elliptocytes Not Reportable 08/28/20 10:07 Acanthocytes (Spur) Not Reportable 08/28/20 10:07 Rouleaux Not Reportable 08/28/20 10:07 Hemoglobin C Crystals Not Reportable 08/28/20 10:07 Schistocytes Not Reportable 08/28/20 10:07 Malaria parasites Not Reportable 08/28/20 10:07 [place]am Bodies Not Reportable 08/28/20 10:07 Hem Pathologist Commnt No 08/28/20 10:07 D-Dimer 2409.74 ng/mlDDU (0-234) H 08/18/20 Unknown Sodium 147 mmol/L (137-145) H 08/29/20 05:43 Potassium 3.4 mmol/L (3.6-5.0) L 08/29/20 05:43 Chloride 115.9 mmol/L (98-107) H 08/29/20 05:43 Carbon Dioxide 28 mmol/L (22-30) 08/29/20 05:43 Anion Gap 7 mmol/L 08/29/20 05:43 BUN 32 mg/dL (7-17) H 08/29/20 05:43 Creatinine 0.5 mg/dL (0.6-1.2) L 08/29/20 05:43 Estimated GFR > 60 ml/min 08/29/20 05:43 BUN/Creatinine Ratio 64 % 08/29/20 05:43 Glucose 238 mg/dL (65-100) H 08/29/20 05:43 POC Glucose 193 mg/dL (70-105) H 08/29/20 05:50 Lactic Acid 1.00 mmol/L (0.7-2.0) 08/18/20 18:25 Calcium 8.3 mg/dL (8.4-10.2) L 08/29/20 05:43 Phosphorus 2.10 mg/dL (2.5-4.5) L 08/29/20 05:43 Magnesium 2.00 mg/dL (1.7-2.3) 08/29/20 05:43 Ferritin 1950.0 ng/mL (10.0-200.0) H 08/18/20 15:35 Total Bilirubin 0.60 mg/dL (0.1-1.2) 08/29/20 05:43 AST 9 units/L (5-40) 08/29/20 05:43 ALT 9 units/L (7-56) 08/29/20 05:43 Alkaline Phosphatase 47 units/L (35-129) 08/29/20 05:43 Ammonia 32.0 umol/L (25-60) 08/25/20 09:06 Lactate Dehydrogenase 228 units/L (91-180) H 08/18/20 15:35 Total Creatine Kinase 164 units/L (30-135) H 08/22/20 19:44 Troponin T 0.075 ng/mL (0.00-0.029) H 08/18/20 18:25 C-Reactive Protein 35.60 mg/dL (0.00-1.30) H 08/18/20 15:35 Total Protein 4.6 g/dL (6.3-8.2) L 08/29/20 05:43 Albumin 2.4 g/dL (3.9-5) L 08/29/20 05:43 Albumin/Globulin Ratio 1.1 % 08/29/20 05:43 Triglycerides 60 mg/dL (2-149) 08/18/20 18:25 Cholesterol 79 mg/dL (50-199) 08/18/20 18:25 LDL Cholesterol Direct 42 mg/dL (50-130) L 08/18/20 18:25 HDL Cholesterol 23 mg/dL (40-59) L 08/18/20 18:25 Cholesterol/HDL Ratio 3.43 % 08/18/20 18:25 Vitamin B12 721.0 pg/mL (211-911) 08/25/20 09:06 Folate 8.34 ng/mL (7.3-26.0) 08/25/20 09:06 Procalcitonin 4.00 ng/mL (<0.15) 08/18/20 15:35 TSH 0.056 mlU/mL (0.270-4.200) L 08/24/20 17:02 Free T4 1.59 ng/dL (0.76-1.46) H 08/26/20 10:22 Urine Color Jacqueline (Yellow) 08/18/20 Unknown Urine Turbidity Hazy (Clear) 08/18/20 Unknown Urine pH 5.0 (5.0-7.0) 08/18/20 Unknown Ur Specific [place] 1.020 (1.003-1.030) 08/18/20 Unknown Urine Protein 30 mg/dl mg/dL (Negative) 08/18/20 Unknown Urine Glucose (UA) 50 mg/dL (Negative) 08/18/20 Unknown Urine Ketones Neg mg/dL (Negative) 08/18/20 Unknown Urine Blood Neg (Negative) 08/18/20 Unknown Urine Nitrite Neg (Negative) 08/18/20 Unknown Urine Bilirubin Neg (Negative) 08/18/20 Unknown Urine Urobilinogen 4.0 mg/dL (<2.0) 08/18/20 Unknown Ur Leukocyte Esterase Tr (Negative) 08/18/20 Unknown Urine WBC (Auto) 41.0 /HPF (0.0-6.0) H 08/18/20 Unknown Urine RBC (Auto) 4.0 /HPF (0.0-6.0) 08/18/20 Unknown U Epithel Cells (Auto) 1.0 /HPF (0-13.0) 08/18/20 Unknown Urine Mucus 3+ /HPF 08/18/20 Unknown Random Vancomycin 9.8 ug/mL (0-40.0) 08/19/20 19:02 Coronavirus (PCR) Positive (Negative) A 08/24/20 Unknown Blood Type O POSITIVE 08/27/20 20:44 Antibody Screen Negative 08/27/20 20:44 Crossmatch See Detail 08/27/20 20:44 [place]/IV: Voiding Method Indwelling Catheter IV Catheter Type [Left Triple Lumen Cath Internal Jugular] IV Catheter Type [Left] CVL Active Medications - Current Medications Current Medications: Generic Name Dose Route Start Last Admin Trade Name Freq PRN Reason Stop Dose Admin Lipase/Protease/Amylase 1 each 08/25/20 16:57 Lipase 10,500/Protease 25,000/Amylase 43,750 (Units) Dr Fernandez FEEDTUBE PRN PRN For Clogged Feeding Tube Atropine Sulfate 1 mg 08/23/20 16:56 Atropine 1 Mg/Ml Vial IV PRN PRN Bradycardia Hydrocortisone Sodium Succinate 10 mg 08/27/20 10:07 08/29/20 00:35 Hydrocortisone Sod Succ 100 Mg/2 Ml Vial IV 10 mg Q12HR BARBARA Administration Levetiracetam 750 mg/ Dextrose 107.5 mls @ 400 mls/hr 08/24/20 12:00 08/29/20 00:36 IV 400 mls/hr Q12HR BARBARA Administration Amino Acids 2,000 mls @ 75 mls/hr 08/29/20 04:00 Clinimix 4.25%-10% Solution IV 08/29/20 19:59 DIRECT BARBARA Levothyroxine Sodium 25 mcg 08/24/20 13:00 08/28/20 06:12 Levothyroxine 100 Mcg Inj IV 25 mcg DAILY@0600 BARBARA Administration Pantoprazole Sodium 40 mg 08/26/20 22:00 08/29/20 00:36 Pantoprazole 40 Mg Inj IV 40 mg BID BARBARA Administration Simple Syrup 15 ml 08/25/20 15:57 Simple Syrup 15 Ml FEEDTUBE PRN PRN Hypoglycemia Simple Syrup 30 ml 08/25/20 15:57 Simple Syrup 15 Ml FEEDTUBE PRN PRN Hypoglycemia Sodium Bicarbonate 325 mg 08/25/20 15:57 Sodium Bicarbonate 325 Mg Tab FEEDTUBE PRN PRN For Clogged Feeding Tube Nutrition/Malnutrition Assess - Dietary Evaluation Nutrition/Malnutrition Findings: Nutrition Notes Start: 08/23/20 10:57 Freq: Status: Active Protocol: Document 08/28/20 11:15 [facility] (Rec: 08/28/20 11:37 [id number]) Nutrition Notes Need for Assessment generated from: MD Order Initial or Follow up Reassessment Current Diagnosis Acute Kidney Injury,Diabetes, Sepsis Other Pertinent Diagnosis Encephalopathy, COVID-19 (+), GIB, UTI Current Diet NPO Labs/Tests Na 149 K 3.5 BUN 37 Pertinent Medications D5 1/2NS at 50ml/hr (provides 204 kcal), Solu-Cortef, Protonix Height 5 ft 5 in Weight 74.4 kg [place] Body Weight (kg) 56.81 BMI 27.3 Weight Status Appropriate Subjective/Other Information RD consulted for TPN. Per MD note, nursing unable to place NGT for TF ordered on 08/25. Pt may need PEG placement as recommended by [employer] WORK[employer] on 08/25. Pt from a [place]. PICC line to be ordered; TLC in place. Pt with very poor PO intake since admission on 08/19. Burn Absent Trauma Absent #1 Nutrition Diagnosis Inadequate oral intake Diagnosis Progress(for reassessment Continues documentation) Is patient on ventilator? No Is Patient Ambulatory and/or Out of Bed No REE-(Wilkinson-St. Jeor-confined to bed) 1452.828 Calculation Used for Recommendations Wilkinson-St Jeor Additional Notes Pro needs 1-1.2g/k-89g/ day Fluid needs 1ml/kcal Nutrition Intervention Nutrition Support: Start Clinimix (4.25% amino acids, 10% dextrose) at 75ml/ hr. Osmolality: 917 Kcal 912 Protein (gm) 75 Carbohydrates (gm) 180 Fat (gm) 0 Fluid (mL) 1,800 Goal #1 PN to meet nutrient needs as best possible Follow-Up By: 08/29/20 Additional Comments Labs in am: CMP, Mg, Phos
--- NOTE | 2020-08-29 12:00 | Gastroenterology Progress Note ---
Assessment and Plan Hematochezia - started after therapeutic lovenox, now resolved, H/H responded appropriately to blood transfusions. given overall medical condition/mentation, will hold off on prep/colonoscopy unless further bleeding signs Subjective Date of service: 08/29/20 Principal diagnosis: Acute encephalopathy Interval history: no further bleeding episodes overnight/today Objective - Exam Narrative Exam: Gen: non-verbal CV: RRR abd: soft, nt, nd rectal: no blood in diaper - Constitutional Vitals: Temp Pulse Resp BP Pulse Ox 98.7 F 69 16 173/76 100 08/29/20 04:19 08/29/20 04:19 08/29/20 04:19 08/29/20 04:19 08/29/20 04:19 - Labs CBC & Chem 7: 08/29/20 05:43 08/29/20 05:43 Labs: Laboratory Results - last 24 hr 08/27/20 08/29/20 08/29/20 20:44 05:43 05:43 WBC 20.5 H RBC 4.02 Hgb 11.5 D Hct 35.0 D MCV 87 MCH 29 MCHC 33 RDW 15.2 Plt Count 148 Lymph % (Auto) 6.3 L [place] % (Auto) 4.0 Eos % (Auto) 0.0 Baso % (Auto) 0.0 Lymph # (Auto) 1.3 [place] # (Auto) 0.8 Eos # (Auto) 0.0 Baso # (Auto) 0.0 Seg Neutrophils % 89.7 H Seg Neutrophils # 18.4 H Sodium 147 H Potassium 3.4 L Chloride 115.9 H Carbon Dioxide 28 Anion Gap 7 BUN 32 H Creatinine 0.5 L Estimated GFR > 60 BUN/Creatinine Ratio 64 Glucose 238 H POC Glucose Calcium 8.3 L Phosphorus 2.10 L Magnesium 2.00 Total Bilirubin 0.60 AST 9 ALT 9 Alkaline Phosphatase 47 Total Protein 4.6 L Albumin 2.4 L Albumin/Globulin Ratio 1.1 Blood Type O POSITIVE Antibody Screen Negative Crossmatch See Detail 08/29/20 08/29/20 05:50 11:22 WBC RBC Hgb Hct MCV MCH MCHC RDW Plt Count Lymph % (Auto) [place] % (Auto) Eos % (Auto) Baso % (Auto) Lymph # (Auto) [place] # (Auto) Eos # (Auto) Baso # (Auto) Seg Neutrophils % Seg Neutrophils # Sodium Potassium Chloride Carbon Dioxide Anion Gap BUN Creatinine Estimated GFR BUN/Creatinine Ratio Glucose POC Glucose 193 H 207 H Calcium Phosphorus Magnesium Total Bilirubin AST ALT Alkaline Phosphatase Total Protein Albumin Albumin/Globulin Ratio Blood Type Antibody Screen Crossmatch
--- NOTE | 2020-08-29 12:49 | Progress Note ---
Assessment and Plan - Patient Problems (1) Altered mental status Current Visit: Yes Status: Acute Plan to address problem: Elderly, correction patient with advanced dementia, presented with altered mental status, leukocytosis, dehydration and severe renal failure after several days of poor p.o. intake. (2) Atrial fibrillation Current Visit: Yes Status: Acute Plan to address problem: Patient has paroxysmal atrial fibrillation, seen on routine telemetry monitoring while hospitalized with altered mental status, dehydration and acute renal failure. Rate control has been optimal without use of significant AV yoan blocking therapy, suggesting underlying conduction system disease. I will however return patient to remote telemetry monitoring which was discontinued for unclear reasons. Further use of long-term anticoagulation will not be recommended at this time, in the setting of the recent GI bleed and resultant severe anemia. Subjective Date of service: 08/29/20 Principal diagnosis: Acute encephalopathy Interval history: Patient is lethargic, but breathing comfortably on room air. NG tube feeding in place. No acute distress. Her rectal bleeding has resolved with stoppage of Lovenox 70 mg, and hematocrit is now optimized, rising from 21 to 35 following blood transfusions. GI has canceled plans for a colonoscopy. Objective Vital Signs Temp Pulse Resp BP BP Pulse Ox 08/29/20 11:22 99.1 F 60 20 170/66 100 08/29/20 04:19 98.7 F 69 16 173/76 100 08/29/20 00:09 97.9 F 65 16 147/55 99 08/28/20 23:33 97.5 F L 68 16 140/49 99 08/28/20 22:23 97.8 F 78 16 145/54 100 08/28/20 21:53 98.0 F 80 15 152/56 100 08/28/20 21:41 98.2 F 80 15 150/54 100 08/28/20 21:23 98.4 F 54 L 16 156/54 100 08/28/20 21:08 98.2 F 70 16 145/51 100 08/28/20 20:50 97.8 F 74 15 155/57 100 08/28/20 18:48 98.0 F 60 16 125/49 100 08/28/20 17:55 97.8 F 61 26 H 146/59 100 08/28/20 16:58 97.8 F 78 20 126/76 01/10/21 16:51 97.8 F 70 20 149/67 100 08/28/20 16:21 97.9 F 72 20 157/67 100 08/28/20 15:51 97.0 F L 71 22 167/98 100 08/28/20 15:36 97.5 F L 78 22 126/76 100 - Physical Examination General: No Apparent Distress HEENT: Positive: PERRL Neck: Positive: neck supple Cardiac: Positive: irregularly irregular Lungs: Positive: Decreased Breath Sounds Neuro: Positive: Weakness Abdomen: Positive: Soft Skin: Positive: Clear Extremities: Absent: edema - Labs and Meds Cardiac Enzymes 08/29/20 Range/Units 05:43 AST 9 (5-40) units/L CBC 08/29/20 Range/Units 05:43 WBC 20.5 H (4.5-11.0) K/mm3 RBC 4.02 (3.65-5.03) M/mm3 Hgb 11.5 D (10.1-14.3) gm/dl Hct 35.0 D (30.3-42.9) % Plt Count 148 (140-440) K/mm3 Lymph # (Auto) 1.3 (1.2-5.4) K/mm3 [place] # (Auto) 0.8 (0.0-0.8) K/mm3 Eos # (Auto) 0.0 (0.0-0.4) K/mm3 Baso # (Auto) 0.0 (0.0-0.1) K/mm3 Comprehensive Metabolic Panel 08/29/20 Range/Units 05:43 Sodium 147 H (137-145) mmol/L Potassium 3.4 L (3.6-5.0) mmol/L Chloride 115.9 H (98-107) mmol/L Carbon Dioxide 28 (22-30) mmol/L BUN 32 H (7-17) mg/dL Creatinine 0.5 L (0.6-1.2) mg/dL Glucose 238 H (65-100) mg/dL Calcium 8.3 L (8.4-10.2) mg/dL AST 9 (5-40) units/L ALT 9 (7-56) units/L Alkaline Phosphatase 47 (35-129) units/L Total Protein 4.6 L (6.3-8.2) g/dL Albumin 2.4 L (3.9-5) g/dL - Imaging and Cardiology EKG: report reviewed
[2020-08-29] MEDS ORDERED: FAT EMULSIONS 20% 250 ML IV SCH (20:00)
[2020-08-29] MEDS ORDERED: TOTAL PARENTERAL NUTRITION 1,800 ML IV SCH (20:00)
[2020-08-30] MEDS: LEVOTHYROXINE 100 MCG INJ IV SCH ×2 (06:01→06:32)
[2020-08-30 06:47] LABS: Hematocrit 34.2 % (30.3-42.9); Hemoglobin 11.4 gm/dl (10.1-14.3); Mean Corpuscular HGB Conc 33 % (30-34); Mean Corpuscular Volume 88 fl (79-97); Platelet Count 136 K/mm3 (140-440); Red Cell Distribution Width 15.3 % (13.2-15.2)
[2020-08-30 06:48] LABS: Basophils % (Auto) 0.1 % (0.0-1.8); Eosinophils % (Auto) 0.1 % (0.0-4.3); Lymphocytes # (Auto) 2.1 K/mm3 (1.2-5.4); Lymphocytes % (Auto) 9.5 % (13.4-35.0); Monocytes % (Auto) 4.8 % (0.0-7.3)
[2020-08-30 06:56] LABS: Blood Urea Nitrogen 33 mg/dL (7-17); Calcium 8.3 mg/dL (8.4-10.2); Hemolysis Index 14
[2020-08-30 06:58] LABS: BUN/Creatinine Ratio 66
[2020-08-30] MEDS ORDERED: POTASSIUM PHOSPHATE 30 MMOL in SODIUM CHLORIDE 0.9% 500 ML 500 ML IV ONE (09:00)
--- NOTE | 2020-08-30 10:17 | Magnetic Resonance Report ---
MR brain wo/w con INDICATION / CLINICAL INFORMATION: CVA, seizure. TECHNIQUE: Multiplanar, multisequence MR images of the brain were obtained. COMPARISON: CT head August 2020 FINDINGS: INTRACRANIAL: Prominent extra-axial enhancement which involves the osseous structures including the p etrous portions of the right greater than left temporal bones, clivus, sphenoid, right cavernous sinu s with soft tissue extension into the sella, and right sphenoid sinuses. The soft tissue approaches t he right orbital apex. The soft tissue extension extends into the suprasellar and retroclival space and abuts but does not narrow the basilar artery. There is encasement of the right internal carotid a rtery which is mildly narrowed compared to the left internal carotid artery within the carotid siphon s. The visualized nasopharynx appears within normal limits. Foramen ovale are symmetric and not enlar ged.. Generalized parenchymal atrophy. No restricted diffusion. Punctate focus of DWI hyperintensity in the right middle cerebellar peduncle is thought to be artifactual. No hemorrhage. Ventricular wendy fifi is normal. No extra-axial collection. No herniation. Major intracranial vascular flow voids are p reserved. Periventricular and centrum semiovale T2 white matter hyperintensities most consistent with sequela of chronic microvascular disease. ORBITS: No significant abnormality of visualized orbits. SINUSES / MASTOIDS: Small bilateral mastoid effusions. No abnormality in the visualized nasopharynx. Paranasal sinuses are clear. ADDITIONAL FINDINGS: None. IMPRESSION: 1. 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 The right internal carotid a rtery is encases and mildly narrowed. Signer Name: Truong Francisco MD Signed: 08/30/2020 10:12 AM Workstation Name: [id number]
[2020-08-30] MEDS: POTASSIUM CHLORIDE 10 MEQ 10 MEQ/100 ML BAG IV SCH ×4 (11:09→13:05)
[2020-08-30] MEDS: HYDROCORTISONE SOD SUCC 100 MG/2 ML VIAL IV SCH ×2 (11:09→21:08)
[2020-08-30] MEDS: PANTOPRAZOLE 40 MG INJ IV SCH ×2 (11:10→21:08)
[2020-08-30] MEDS: levETIRAcetam 750 MG in DEXTROSE 5% IN WATER 100 ML IV SCH ×2 (11:12→21:09)
--- NOTE | 2020-08-30 12:02 | Progress Note ---
Assessment and Plan Altered mental status Covid 19 infection Paroxysmal atrial fibrillation rate control has been optimal without use of significant AV yoan blocking therapy, suggesting underlying conduction system disease. Rectal bleeding s/p 1 unit PRBC transfusion Advanced dementia Resume remote telemetry monitoring which was discontinued for unclear reasons. Further use of long-term anticoagulation will not be recommended at this time, in the setting of the recent GI bleed and resultant severe anemia. Subjective Date of service: 08/30/20 Principal diagnosis: Acute encephalopathy Interval history: No interval cardiac changes Objective Vital Signs Temp Pulse Resp BP BP Pulse Ox 08/30/20 11:07 97.9 F 57 L 18 163/68 100 08/30/20 07:12 99 F 78 16 158/81 98 08/29/20 22:00 100 08/29/20 21:11 98.6 F 16 140/55 08/29/20 15:48 98.5 F 51 L 20 149/65 99 - Physical Examination Narrative exam: Deferred due to isolation protocol. General: No Apparent Distress - Labs and Meds CBC 08/30/20 Range/Units 05:35 WBC 21.9 H (4.5-11.0) K/mm3 RBC 3.90 (3.65-5.03) M/mm3 Hgb 11.4 (10.1-14.3) gm/dl Hct 34.2 (30.3-42.9) % Plt Count 136 L (140-440) K/mm3 Lymph # (Auto) 2.1 (1.2-5.4) K/mm3 [place] # (Auto) 1.0 H (0.0-0.8) K/mm3 Eos # (Auto) 0.0 (0.0-0.4) K/mm3 Baso # (Auto) 0.0 (0.0-0.1) K/mm3 Comprehensive Metabolic Panel 08/30/20 Range/Units 05:35 Sodium 145 (137-145) mmol/L Potassium 3.0 L (3.6-5.0) mmol/L Chloride 112.1 H (98-107) mmol/L Carbon Dioxide 22 (22-30) mmol/L BUN 33 H (7-17) mg/dL Creatinine 0.5 L (0.6-1.2) mg/dL Glucose 211 H (65-100) mg/dL Calcium 8.3 L (8.4-10.2) mg/dL
--- NOTE | 2020-08-30 12:10 | Ultrasound Report ---
ULTRASOUND RENAL INDICATION / CLINICAL INFORMATION: melanie. COMPARISON: None available. FINDINGS: RIGHT KIDNEY: Length = 10.1 cm. [normal > 9 cm] - Parenchymal Thickness = 1.4 cm. [normal > 1.5 cm] - Echogenicity: Increased - Hydronephrosis: None. - Cyst or mass: No significant abnormality. - Stones: None seen. LEFT KIDNEY: Length = 11.3 cm. [normal > 9 cm] - Parenchymal Thickness = 1.6 cm. [normal > 1.5 cm] - Echogenicity: 3 views - Hydronephrosis: None. - Cyst or mass: No significant abnormality. - Stones: None seen. URINARY BLADDER: The bladder is empty and poorly evaluated. FREE FLUID: None. ADDITIONAL FINDINGS: None. IMPRESSION: Slightly echogenic kidneys consistent with medical renal disease. No focal renal lesion or hydroneph rosis. Signer Name: Prateek Tirado Jr, MD Signed: 08/30/2020 12:06 PM Workstation Name: [id number]
--- NOTE | 2020-08-30 12:45 | Progress Note ---
Assessment and Plan Assessment and plan: Assessment and plan: Acute toxic metabolic encephalopathy: Possibly secondary to infection versus decreased renal function. GI bleed/hematochezia. Nurse noted bloody stool on 08/26-08/27 UTI: Urine and blood cultures negative. Continue cefepime per ID recommendation Sepsis: Etiology secondary to above. Acute hypoxic respiratory failure: Continue oxygen supplementation. History of COVID-19: PCR is positive, likely just noninfectious viral fragments [place]'s disease: On chronic steroids, slightly immunocompromised host Elevated D-dimer. D-dimer noted to be 2409.7 and thus empirically started on therapeutic dose anticoagulation. Anticoagulation discontinued as patient's started having drop in hemoglobin. PAWAN: Renally dose medications. 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 Patient had brain irradiation for endocrine tumor. No baseline MRI to compare with. Given altered mental status, will consult neurosurgery for further evaluation. 08/24/2020. Patient still mildly confused. However, I suspect patient has underlying Alzheimer's dementia and this is her baseline. I discussed plan of care and altered mentation with sister at [phone]. Patient will need DME of hospital bed and oxygen for discharge home. Await physical therapy recommendations. 08/25/2020. Patient still lethargic and confused. Patient receiving hydrocortisone 50 mg IV twice daily for adrenal insufficiency. Check B12, f olate and ammonia levels. Neurology consultation pending. Continue supplemental oxygen to maintain sats greater than 92%. 08/26/2020. Encephalopathy likely secondary to toxic metabolic causes in the setting of leukocytosis, improving uremia, renal insufficiency, covid-19, underlying uti. Check CT head without contrast and EEG per neurology recommendations. However may need csf evaluation if brain imaging and eeg are unremarkable and pt continues to remain encephalopathic. Follow-up cortisol levels and T3-T4. 08/27/2020. Patient remains lethargic and confused. Encephalopathy is persistent and likely secondary to toxic metabolic causes from sepsis, renal insufficiency/uremia, COVID-[address] scan of the head found to be negative. Await EEG. Consider CSF evaluation if EEG unremarkable. Consult GI for further evaluation of hematochezia/GI bleed. Continue Protonix 40 mg IV twice daily. Transfuse for hemoglobin less than 7. Continue to monitor serial CBC. Lovenox discontinued which was empirically started for elevated D-dimer. 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 Decrease IV hydrocortisone. Follow-up cortisol levels and T3-T4. I updated the sister and family at [phone]. 08/28/2020. Follow-up EEG per neurology. GI reports if signs of hemodynamic changes, we will proceed with stat bleeding scan. Hemoglobin has dropped to 6.8. Type and cross and transfuse 2 units. Continue to hold anticoagulation. Continue Protonix 40 mg IV twice daily. Nursing reports inability to place NG tube. Place PICC line and start TPN. Dietitian consulted. ? NG tube placement under fluoroscopy. Patient may need PEG tube placement. 08/29/2020. Patient is s/p 3 units PRBCs. Hemoglobin has stabilized to 11.5. Continue to trend and follow serial H/H. Patient remains hemodynamically stable. If patient has a change, we will proceed with stat bleeding scan. GI following. Continue Protonix 40 mg IV twice daily. Continue to hold anticoagulation. Nursing reports inability to place NG tube. PICC line placed to initiate TPN. Dietitian consulted. ? NG tube placement under fluoroscopy. Patient may need PEG tube placement. 08/30/2020. Hemoglobin remained stable. Patient is on TPN and will not be discharged on TPN. NG tube could not be placed as per RN.. Awaiting EEG to rule out any seizures. If no etiology found, patient will benefit from a PEG placement as she has advanced dementia. Continue to hold anticoagulation due to recent GI bleed. GI to reevaluate for PEG placement. 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 Not clear if this is baseline. Needs a retrieve her records from previous hospitalization. Neurosurgery consulted for evaluation. History Interval history: No acute events noted overnight. Hospitalist Physical - Physical exam Narrative exam: VITAL SIGNS: Reviewed. GENERAL: Awake HEAD: No signs of head trauma. EYES: Pupils are equal. Extraocular motions intact. MOUTH: Oropharynx is normal. NECK: No adenopathy, no JVD. CHEST: Chest with diminished breath sounds bilaterally. No wheezes, rales, or rhonchi. CARDIAC: normal S1 and S2, without murmurs, gallops, or rubs. ABDOMEN: Soft, non tender and non distended. No rebound or guarding, and no masses palpated. Bowel Sounds normal. MUSCULOSKELETAL: No edema NEUROLOGIC EXAM: Awake SKIN: No obvious lesions - Constitutional Vitals: Temp Pulse Resp BP Pulse Ox 97.9 F 57 L 18 163/68 100 08/30/20 11:07 08/30/20 11:07 08/30/20 11:07 08/30/20 11:07 08/30/20 11:07 HEART Score - HEART Score Troponin: Troponin T 0.075 ng/mL (0.00-0.029) H 08/18/20 18:25 Troponin: 1-3x normal limit - Critical Actions Critical Actions: 4-6 pts:12-16.6% risk of adverse cardiac event. Should be admitted Results - Labs CBC & Chem 7: 08/30/20 05:35 08/30/20 05:35 Labs: Laboratory Last Values WBC 21.9 K/mm3 (4.5-11.0) H 08/30/20 05:35 RBC 3.90 M/mm3 (3.65-5.03) 08/30/20 05:35 Hgb 11.4 gm/dl (10.1-14.3) 08/30/20 05:35 Hct 34.2 % (30.3-42.9) 08/30/20 05:35 MCV 88 fl (79-97) 08/30/20 05:35 MCH 29 pg (28-32) 08/30/20 05:35 MCHC 33 % (30-34) 08/30/20 05:35 RDW 15.3 % (13.2-15.2) H 08/30/20 05:35 Plt Count 136 K/mm3 (140-440) L 08/30/20 05:35 Lymph % (Auto) 9.5 % (13.4-35.0) L 08/30/20 05:35 [place] % (Auto) 4.8 % (0.0-7.3) 08/30/20 05:35 Eos % (Auto) 0.1 % (0.0-4.3) 08/30/20 05:35 Baso % (Auto) 0.1 % (0.0-1.8) 08/30/20 05:35 Lymph # (Auto) 2.1 K/mm3 (1.2-5.4) 08/30/20 05:35 [place] # (Auto) 1.0 K/mm3 (0.0-0.8) H 08/30/20 05:35 Eos # (Auto) 0.0 K/mm3 (0.0-0.4) 08/30/20 05:35 Baso # (Auto) 0.0 K/mm3 (0.0-0.1) 08/30/20 05:35 Add Manual Diff Complete 08/28/20 10:07 Total Counted 100 08/28/20 10:07 Seg Neutrophils % 85.5 % (40.0-70.0) H 08/30/20 05:35 Seg Neuts % (Manual) 90.0 % (40.0-70.0) H 08/28/20 10:07 Band Neutrophils % 1.0 % 08/28/20 10:07 Lymphocytes % (Manual) 3.0 % (13.4-35.0) L 08/28/20 10:07 Reactive Lymphs % (Man) 1.0 % 08/28/20 10:07 Monocytes % (Manual) 3.0 % (0.0-7.3) 08/28/20 10:07 Metamyelocytes % 2.0 % 08/28/20 10:07 Nucleated RBC % Not Reportable 08/28/20 10:07 Seg Neutrophils # 18.7 K/mm3 (1.8-7.7) H 08/30/20 05:35 Seg Neutrophils # Man 18.5 K/mm3 (1.8-7.7) H 08/28/20 10:07 Band Neutrophils # 0.2 K/mm3 08/28/20 10:07 Lymphocytes # (Manual) 0.6 K/mm3 (1.2-5.4) L 08/28/20 10:07 Abs React Lymphs (Man) 0.2 K/mm3 08/28/20 10:07 Monocytes # (Manual) 0.6 K/mm3 (0.0-0.8) 08/28/20 10:07 Eosinophils # (Manual) 0.0 K/mm3 (0.0-0.4) 08/28/20 10:07 Basophils # (Manual) 0.0 K/mm3 (0.0-0.1) 08/28/20 10:07 Metamyelocytes # 0.4 K/mm3 08/28/20 10:07 Myelocytes # 0.0 K/mm3 08/28/20 10:07 Promyelocytes # 0.0 K/mm3 08/28/20 10:07 Blast Cells # 0.0 K/mm3 08/28/20 10:07 WBC Morphology Not Reportable 08/28/20 10:07 WBC Morphology TNR 08/28/20 10:07 Hypersegmented Neuts Not Reportable 08/28/20 10:07 Hyposegmented Neuts Not Reportable 08/28/20 10:07 Hypogranular Neuts Not Reportable 08/28/20 10:07 Smudge Cells Not Reportable 08/28/20 10:07 Toxic Granulation Not Reportable 08/28/20 10:07 Toxic Vacuolation Not Reportable 08/28/20 10:07 Dohle Bodies Not Reportable 08/28/20 10:07 Pelger-Huet Anomaly Not Reportable 08/28/20 10:07 Marie Rods Not Reportable 08/28/20 10:07 Platelet Estimate Consistent w auto 08/28/20 10:07 Clumped Platelets Not Reportable 08/28/20 10:07 Plt Clumps, EDTA Not Reportable 08/28/20 10:07 Large Platelets Not Reportable 08/28/20 10:07 Giant Platelets Not Reportable 08/28/20 10:07 Platelet Satelliting Not Reportable 08/28/20 10:07 Plt Morphology Comment Not Reportable 08/28/20 10:07 RBC Morphology Not Reportable 08/28/20 10:07 Dimorphic RBCs Not Reportable 08/28/20 10:07 Polychromasia Not Reportable 08/28/20 10:07 Hypochromasia Not Reportable 08/28/20 10:07 Poikilocytosis Not Reportable 08/28/20 10:07 Anisocytosis Not Reportable 08/28/20 10:07 Microcytosis Not Reportable 08/28/20 10:07 Macrocytosis Not Reportable 08/28/20 10:07 Spherocytes Not Reportable 08/28/20 10:07 Pappenheimer Bodies Not Reportable 08/28/20 10:07 Sickle Cells Not Reportable 08/28/20 10:07 Target Cells Few 08/28/20 10:07 Tear Drop Cells Not Reportable 08/28/20 10:07 Ovalocytes Not Reportable 08/28/20 10:07 Helmet Cells Not Reportable 08/28/20 10:07 [place] Bodies Not Reportable 08/28/20 10:07 Burt Rings Not Reportable 08/28/20 10:07 Darren Cells Not Reportable 08/28/20 10:07 Bite Cells Not Reportable 08/28/20 10:07 Crenated Cell Not Reportable 08/28/20 10:07 Elliptocytes Not Reportable 08/28/20 10:07 Acanthocytes (Spur) Not Reportable 08/28/20 10:07 Rouleaux Not Reportable 08/28/20 10:07 Hemoglobin C Crystals Not Reportable 08/28/20 10:07 Schistocytes Not Reportable 08/28/20 10:07 Malaria parasites Not Reportable 08/28/20 10:07 Payam Bodies Not Reportable 08/28/20 10:07 Hem Pathologist Commnt No 08/28/20 10:07 D-Dimer 2409.74 ng/mlDDU (0-234) H 08/18/20 Unknown Sodium 145 mmol/L (137-145) 08/30/20 05:35 Potassium 3.0 mmol/L (3.6-5.0) L 08/30/20 05:35 Chloride 112.1 mmol/L (98-107) H 08/30/20 05:35 Carbon Dioxide 22 mmol/L (22-30) 08/30/20 05:35 Anion Gap 14 mmol/L 08/30/20 05:35 BUN 33 mg/dL (7-17) H 08/30/20 05:35 Creatinine 0.5 mg/dL (0.6-1.2) L 08/30/20 05:35 Estimated GFR > 60 ml/min 08/30/20 05:35 BUN/Creatinine Ratio 66 % 08/30/20 05:35 Glucose 211 mg/dL (65-100) H 08/30/20 05:35 POC Glucose 153 mg/dL (70-105) H 08/30/20 11:07 Lactic Acid 1.00 mmol/L (0.7-2.0) 08/18/20 18:25 Calcium 8.3 mg/dL (8.4-10.2) L 08/30/20 05:35 Phosphorus 1.70 mg/dL (2.5-4.5) L 08/30/20 05:35 Magnesium 2.00 mg/dL (1.7-2.3) 08/30/20 05:35 Ferritin 1950.0 ng/mL (10.0-200.0) H 08/18/20 15:35 Total Bilirubin 0.60 mg/dL (0.1-1.2) 08/29/20 05:43 AST 9 units/L (5-40) 08/29/20 05:43 ALT 9 units/L (7-56) 08/29/20 05:43 Alkaline Phosphatase 47 units/L (35-129) 08/29/20 05:43 Ammonia 32.0 umol/L (25-60) 08/25/20 09:06 Lactate Dehydrogenase 228 units/L (91-180) H 08/18/20 15:35 Total Creatine Kinase 164 units/L (30-135) H 08/22/20 19:44 Troponin T 0.075 ng/mL (0.00-0.029) H 08/18/20 18:25 C-Reactive Protein 35.60 mg/dL (0.00-1.30) H 08/18/20 15:35 Total Protein 4.6 g/dL (6.3-8.2) L 08/29/20 05:43 Albumin 2.4 g/dL (3.9-5) L 08/29/20 05:43 Albumin/Globulin Ratio 1.1 % 08/29/20 05:43 Triglycerides 60 mg/dL (2-149) 08/18/20 18:25 Cholesterol 79 mg/dL (50-199) 08/18/20 18:25 LDL Cholesterol Direct 42 mg/dL (50-130) L 08/18/20 18:25 HDL Cholesterol 23 mg/dL (40-59) L 08/18/20 18:25 Cholesterol/HDL Ratio 3.43 % 08/18/20 18:25 Vitamin B12 721.0 pg/mL (211-911) 08/25/20 09:06 Folate 8.34 ng/mL (7.3-26.0) 08/25/20 09:06 Procalcitonin 4.00 ng/mL (<0.15) 08/18/20 15:35 TSH 0.056 mlU/mL (0.270-4.200) L 08/24/20 17:02 Free T4 1.59 ng/dL (0.76-1.46) H 08/26/20 10:22 Urine Color Jacqueline (Yellow) 08/18/20 Unknown Urine Turbidity Hazy (Clear) 08/18/20 Unknown Urine pH 5.0 (5.0-7.0) 08/18/20 Unknown Ur Specific [place] 1.020 (1.003-1.030) 08/18/20 Unknown Urine Protein 30 mg/dl mg/dL (Negative) 08/18/20 Unknown Urine Glucose (UA) 50 mg/dL (Negative) 08/18/20 Unknown Urine Ketones Neg mg/dL (Negative) 08/18/20 Unknown Urine Blood Neg (Negative) 08/18/20 Unknown Urine Nitrite Neg (Negative) 08/18/20 Unknown Urine Bilirubin Neg (Negative) 08/18/20 Unknown Urine Urobilinogen 4.0 mg/dL (<2.0) 08/18/20 Unknown Ur Leukocyte Esterase Tr (Negative) 08/18/20 Unknown Urine WBC (Auto) 41.0 /HPF (0.0-6.0) H 08/18/20 Unknown Urine RBC (Auto) 4.0 /HPF (0.0-6.0) 08/18/20 Unknown U Epithel Cells (Auto) 1.0 /HPF (0-13.0) 08/18/20 Unknown Urine Mucus 3+ /HPF 08/18/20 Unknown Random Vancomycin 9.8 ug/mL (0-40.0) 08/19/20 19:02 Coronavirus (PCR) Positive (Negative) A 08/24/20 Unknown Blood Type O POSITIVE 08/27/20 20:44 Antibody Screen Negative 08/27/20 20:44 Crossmatch See Detail 08/27/20 20:44 [place]/IV: Voiding Method Indwelling Catheter IV Catheter Type [Left Triple Lumen Cath Internal Jugular] IV Catheter Type [Left] CVL Active Medications - Current Medications Current Medications: Generic Name Dose Route Start Last Admin Trade Name Freq PRN Reason Stop Dose Admin Lipase/Protease/Amylase 1 each 08/25/20 16:57 Lipase 10,500/Protease 25,000/Amylase 43,750 (Units) Dr Fernandez FEEDTUBE PRN PRN For Clogged Feeding Tube Atropine Sulfate 1 mg 08/23/20 16:56 Atropine 1 Mg/Ml Vial IV PRN PRN Bradycardia Hydrocortisone Sodium Succinate 10 mg 08/27/20 10:07 08/30/20 11:09 Hydrocortisone Sod Succ 100 Mg/2 Ml Vial IV 10 mg Q12HR BARBARA Administration Levetiracetam 750 mg/ Dextrose 107.5 mls @ 400 mls/hr 08/24/20 12:00 08/30/20 11:12 IV 400 mls/hr Q12HR BARBARA Administration Amino Acids/Electrolytes/Dextrose 1,800 mls @ 75 mls/hr 08/29/20 20:00 08/29/20 21:18 Tpn Adult IV 08/30/20 19:59 75 mls/hr DAILY@1999 BARBARA Administration Protocol Potassium Chloride 10 meq in 100 mls @ 100 mls/hr 08/30/20 09:00 08/30/20 11:13 Kcl 10meq/100ml IV 08/30/20 12:59 100 mls/hr Q1H BARBARA Administration Potassium Phosphate 30 mmol/ 510 mls @ 83 mls/hr 08/30/20 09:00 08/30/20 11:11 Sodium Chloride IV 08/30/20 15:08 83 mls/hr ONCE ONE Administration Amino Acids/Electrolytes/Dextrose 1,800 mls @ 75 mls/hr 08/30/20 20:00 Tpn Adult IV 08/31/20 19:59 DAILY@1999 [facility] Protocol Levothyroxine Sodium 25 mcg 08/24/20 13:00 08/30/20 06:32 Levothyroxine 100 Mcg Inj IV 25 mcg DAILY@0600 BARBARA Administration Pantoprazole Sodium 40 mg 08/26/20 22:00 08/30/20 11:10 Pantoprazole 40 Mg Inj IV 40 mg BID BARBARA Administration Simple Syrup 15 ml 08/25/20 15:57 Simple Syrup 15 Ml FEEDTUBE PRN PRN Hypoglycemia Simple Syrup 30 ml 08/25/20 15:57 Simple Syrup 15 Ml FEEDTUBE PRN PRN Hypoglycemia Sodium Bicarbonate 325 mg 08/25/20 15:57 Sodium Bicarbonate 325 Mg Tab FEEDTUBE PRN PRN For Clogged Feeding Tube Nutrition/Malnutrition Assess - Dietary Evaluation Nutrition/Malnutrition Findings: Nutrition Notes Start: 08/23/20 10:57 Freq: Status: Active Protocol: Document 08/29/20 12:22 (Rec: 08/29/20 12:31 [email or web address]) Nutrition Notes Initial or Follow up Reassessment Current Diagnosis Acute Kidney Injury,Diabetes, Sepsis Other Pertinent Diagnosis Encephalopathy, COVID-19 (+), GIB, UTI Current Diet NPO Labs/Tests Na 147 K 3.4 BUN 32 Phos 2.1 Pertinent Medications Reveiwed Height 5 ft 5 in Weight 74.4 kg [place] Body Weight (kg) 56.81 BMI 27.3 Weight Status Appropriate Subjective/Other Information FU for TPN. Pt with TLC. Per RN, pt seems to be tolerating Clinimix fine. Percent of energy/protein needs met: 63%/100% Burn Absent Trauma Absent GI Symptoms None Difficulty In Chewing Usual Diet at Home unknown Skin Integrity/Comment Xavier Score 8 Current % PO Negligible Minimum of two criteria No Energy Intake (severe) < or equal to 50% Estimated Energy Requirement > or equal to 5 days #1 Nutrition Diagnosis Inadequate oral intake Diagnosis Progress(for reassessment Continues documentation) Is patient on ventilator? No Is Patient Ambulatory and/or Out of Bed No REE-([facility]-confined to bed) 1452.828 Calculation Used for Recommendations [facility] Additional Notes Pro needs 1-1.2g/k-89g/ day Fluid needs 1ml/kcal Nutrition Intervention Nutrition Support: Central TPN (4.2% amino acids, 10% dextrose) at 75 ml/hr. Osmolality: 1412 MVI,Thiamine, Lipids Na 70 mEq. K 80mEq, Mag 10mEq, Ca 8mEq, Phos 20 mmol, 0/100% chloride/acetate Kcal 1,412 Protein (gm) 75 Carbohydrates (gm) 180 Fat (gm) 50 Fluid (mL) 2,050 Goal #1 PN to meet nutrient needs as best possible Anticipated Discharge Needs: Unable to determine at this time Follow-Up By: 08/30/20 Additional Comments Labs in am: BMP, Mg, Phos
[2020-08-30] MEDS ORDERED: TOTAL PARENTERAL NUTRITION 1,800 ML IV SCH (20:00)
[2020-08-31] MEDS: LEVOTHYROXINE 100 MCG INJ IV SCH (06:25)
[2020-08-31 06:48] LABS: Hematocrit 32.7 % (30.3-42.9); Hemoglobin 10.8 gm/dl (10.1-14.3); Mean Corpuscular HGB Conc 33 % (30-34); Mean Corpuscular Volume 87 fl (79-97); Platelet Count 122 K/mm3 (140-440); Red Blood Count 3.76 M/mm3 (3.65-5.03); Red Cell Distribution Width 15.6 % (13.2-15.2)
[2020-08-31 07:46] LABS: Blood Urea Nitrogen 27 mg/dL (7-17); Calcium 8.1 mg/dL (8.4-10.2); Hemolysis Index 5
[2020-08-31 07:47] LABS: BUN/Creatinine Ratio 68
[2020-08-31 08:10] LABS: Anisocytosis 1+; Band Neutrophils # (Manual) 0.2 K/mm3; Platelet Estimate Consistent w Auto; Total Cells Counted 100
--- NOTE | 2020-08-31 09:09 | Progress Note ---
Assessment and Plan Altered mental status Covid 19 infection Paroxysmal atrial fibrillation rate control has been optimal without use of significant AV yoan blocking therapy, suggesting underlying conduction system disease. Rectal bleeding s/p 1 unit PRBC transfusion Advanced dementia Further use of long-term anticoagulation will not be recommended at this time, in the setting of the recent GI bleed and resultant severe anemia. Conservative cardiac management. Subjective Date of service: 08/31/20 Principal diagnosis: Acute encephalopathy Interval history: No interval cardiac changes. Stable sinus rhythm on telemetry. Objective Vital Signs Temp Pulse Resp BP Pulse Ox 08/31/20 03:58 98.5 F 63 16 146/56 100 08/30/20 21:15 99.3 F 60 16 139/56 100 08/30/20 11:07 97.9 F 57 L 18 163/68 100 - Physical Examination Narrative exam: Deferred due to isolation protocol. General: No Apparent Distress - Labs and Meds Lipids 08/31/20 Range/Units 06:20 Triglycerides 70 (2-149) mg/dL CBC 08/31/20 Range/Units 06:20 WBC 17.3 H (4.5-11.0) K/mm3 RBC 3.76 (3.65-5.03) M/mm3 Hgb 10.8 (10.1-14.3) gm/dl Hct 32.7 (30.3-42.9) % Plt Count 122 L (140-440) K/mm3 Comprehensive Metabolic Panel 08/31/20 Range/Units 06:20 Sodium 146 H (137-145) mmol/L Potassium 4.2 D (3.6-5.0) mmol/L Chloride 109.4 H (98-107) mmol/L Carbon Dioxide 31 H D (22-30) mmol/L BUN 27 H (7-17) mg/dL Creatinine 0.4 L (0.6-1.2) mg/dL Glucose 256 H (65-100) mg/dL Calcium 8.1 L (8.4-10.2) mg/dL
[2020-08-31] MEDS: PANTOPRAZOLE 40 MG INJ IV SCH ×2 (10:44→21:29)
[2020-08-31] MEDS: HYDROCORTISONE SOD SUCC 100 MG/2 ML VIAL IV SCH ×2 (10:44→21:29)
[2020-08-31] MEDS: levETIRAcetam 750 MG in DEXTROSE 5% IN WATER 100 ML IV SCH ×2 (10:45→21:28)
--- NOTE | 2020-08-31 11:22 | Progress Note ---
Assessment and Plan Assessment and plan: Assessment and plan: ---Acute toxic metabolic encephalopathy: Possibly secondary to infection versus decreased renal function. ---GI bleed/hematochezia. Received packed red blood cells-this has resolved. Plan for colonoscopy as per GI ---UTI: Complete antibiotics ---Sepsis: Etiology secondary to above. Resolved ---Acute hypoxic respiratory failure: Continue oxygen supplementation. ---History of COVID-19: PCR is positive, likely just noninfectious viral fragments. 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 D-dimer noted to be 2409.7 and thus empirically started on therapeutic dose anticoagulation. Anticoagulation discontinued as patient's started having drop in hemoglobin. ---PAWAN: Renally dose medications. 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 Patient had brain irradiation for endocrine tumor. No baseline MRI to compare with. Given altered mental status, will consult neurosurgery for further evaluation. Neurosurgery evaluation appreciated. no intervention needed at this time ---On TPN - Needs supplementation with diet. Plan for PEG placement Hospital course 08/24/2020. Patient still mildly confused. However, I suspect patient has u nderlying Alzheimer's dementia and this is her baseline. I discussed plan of care and altered mentation with sister at [phone]. Patient will need DME of hospital bed and oxygen for discharge home. Await physical therapy recommendations. 08/25/2020. Patient still lethargic and confused. Patient receiving hydrocortisone 50 mg IV twice daily for adrenal insufficiency. Check B12, folate and ammonia levels. Neurology consultation pending. Continue supplemental oxygen to maintain sats greater than 92%. 08/26/2020. Encephalopathy likely secondary to toxic metabolic causes in the setting of leukocytosis, improving uremia, renal insufficiency, covid-19, underlying uti. Check CT head without contrast and EEG per neurology recommendations. However may need csf evaluation if brain imaging and eeg are unremarkable and pt continues to remain encephalopathic. Follow-up cortisol levels and T3-T4. 08/27/2020. Patient remains lethargic and confused. Encephalopathy is persistent and likely secondary to toxic metabolic causes from sepsis, renal insufficiency/uremia, COVID-[address] scan of the head found to be negative. Await EEG. Consider CSF evaluation if EEG unremarkable. Consult GI for further evaluation of hematochezia/GI bleed. Continue Protonix 40 mg IV twice daily. Transfuse for hemoglobin less than 7. Continue to monitor serial CBC. Lovenox discontinued which was empirically started for elevated D-dimer. 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 Decrease IV hydrocortisone. Follow-up cortisol levels and T3-T4. I updated the sister and family at [phone]. 08/28/2020. Follow-up EEG per neurology. GI reports if signs of hemodynamic changes, we will proceed with stat bleeding scan. Hemoglobin has dropped to 6. 8. Type and cross and transfuse 2 units. Continue to hold anticoagulation. Continue Protonix 40 mg IV twice daily. Nursing reports inability to place NG tube. Place PICC line and start TPN. Dietitian consulted. ? NG tube placement under fluoroscopy. Patient may need PEG tube placement. 08/29/2020. Patient is s/p 3 units PRBCs. Hemoglobin has stabilized to 11.5. Continue to trend and follow serial H/H. Patient remains hemodynamically stable. If patient has a change, we will proceed with stat bleeding scan. GI following. Continue Protonix 40 mg IV twice daily. Continue to hold an ticoagulation. Nursing reports inability to place NG tube. PICC line placed to initiate TPN. Dietitian consulted. ? NG tube placement under fluoroscopy. Patient may need PEG tube placement. 08/30/2020. Hemoglobin remained stable. Patient is on TPN and will not be discharged on TPN. NG tube could not be placed as per RN.. Awaiting EEG to rule out any seizures. If no etiology found, patient will benefit from a PEG placement as she has advanced dementia. Continue to hold anticoagulation due to recent GI bleed. GI to reevaluate for PEG placement. 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 Not clear if this is baseline. Needs a retrieve her records from previous hospitalization. Neurosurgery consulted for evaluation. History Interval history: No acute events noted overnight. Hospitalist Physical - Physical exam Narrative exam: VITAL SIGNS: Reviewed. GENERAL: Awake but confused HEAD: No signs of head trauma. EYES: Pupils are equal. Extraocular motions intact. MOUTH: Oropharynx is normal. NECK: No adenopathy, no JVD. CHEST: Chest with diminished breath sounds bilaterally. No wheezes, rales, or rhonchi. CARDIAC: normal S1 and S2, without murmurs, gallops, or rubs. ABDOMEN: Soft, non tender and non distended. No rebound or guarding, and no masses palpated. Bowel Sounds normal. MUSCULOSKELETAL: No edema NEUROLOGIC EXAM: Awake but confused SKIN: No obvious lesions - Constitutional Vitals: Temp Pulse Resp BP Pulse Ox 98.5 F 63 16 146/56 100 08/31/20 03:58 08/31/20 03:58 08/31/20 03:58 08/31/20 03:58 08/31/20 03:58 HEART Score - HEART Score Troponin: Troponin T 0.075 ng/mL (0.00-0.029) H 08/18/20 18:25 Troponin: 1-3x normal limit - Critical Actions Critical Actions: 4-6 pts:12-16.6% risk of adverse cardiac event. Should be admitted Results - Labs CBC & Chem 7: 08/31/20 06:20 09/01/20 05:57 Labs: Laboratory Last Values WBC 17.3 K/mm3 (4.5-11.0) H 08/31/20 06:20 RBC 3.76 M/mm3 (3.65-5.03) 08/31/20 06:20 Hgb 10.8 gm/dl (10.1-14.3) 08/31/20 06:20 Hct 32.7 % (30.3-42.9) 08/31/20 06:20 MCV 87 fl (79-97) 08/31/20 06:20 MCH 29 pg (28-32) 08/31/20 06:20 MCHC 33 % (30-34) 08/31/20 06:20 RDW 15.6 % (13.2-15.2) H 08/31/20 06:20 Plt Count 122 K/mm3 (140-440) L 08/31/20 06:20 Lymph % (Auto) 9.5 % (13.4-35.0) L 08/30/20 05:35 [place] % (Auto) 4.8 % (0.0-7.3) 08/30/20 05:35 Eos % (Auto) 0.1 % (0.0-4.3) 08/30/20 05:35 Baso % (Auto) 0.1 % (0.0-1.8) 08/30/20 05:35 Lymph # (Auto) 2.1 K/mm3 (1.2-5.4) 08/30/20 05:35 [place] # (Auto) 1.0 K/mm3 (0.0-0.8) H 08/30/20 05:35 Eos # (Auto) 0.0 K/mm3 (0.0-0.4) 08/30/20 05:35 Baso # (Auto) 0.0 K/mm3 (0.0-0.1) 08/30/20 05:35 Add Manual Diff Complete 08/31/20 06:20 Total Counted 100 08/31/20 06:20 Seg Neutrophils % 85.5 % (40.0-70.0) H 08/30/20 05:35 Seg Neuts % (Manual) 87.0 % (40.0-70.0) H 08/31/20 06:20 Band Neutrophils % 1.0 % 08/31/20 06:20 Lymphocytes % (Manual) 5.0 % (13.4-35.0) L 08/31/20 06:20 Reactive Lymphs % (Man) 1.0 % 08/28/20 10:07 Monocytes % (Manual) 5.0 % (0.0-7.3) 08/31/20 06:20 Metamyelocytes % 2.0 % 08/31/20 06:20 Nucleated RBC % Not Reportable 08/31/20 06:20 Seg Neutrophils # 18.7 K/mm3 (1.8-7.7) H 08/30/20 05:35 Seg Neutrophils # Man 15.1 K/mm3 (1.8-7.7) H 08/31/20 06:20 Band Neutrophils # 0.2 K/mm3 08/31/20 06:20 Lymphocytes # (Manual) 0.9 K/mm3 (1.2-5.4) L 08/31/20 06:20 Abs React Lymphs (Man) 0.0 K/mm3 08/31/20 06:20 Monocytes # (Manual) 0.9 K/mm3 (0.0-0.8) H 08/31/20 06:20 Eosinophils # (Manual) 0.0 K/mm3 (0.0-0.4) 08/31/20 06:20 Basophils # (Manual) 0.0 K/mm3 (0.0-0.1) 08/31/20 06:20 Metamyelocytes # 0.3 K/mm3 08/31/20 06:20 Myelocytes # 0.0 K/mm3 08/31/20 06:20 Promyelocytes # 0.0 K/mm3 08/31/20 06:20 Blast Cells # 0.0 K/mm3 08/31/20 06:20 WBC Morphology Not Reportable 08/31/20 06:20 Hypersegmented Neuts Not Reportable 08/31/20 06:20 Hyposegmented Neuts Not Reportable 08/31/20 06:20 Hypogranular Neuts Not Reportable 08/31/20 06:20 Smudge Cells Not Reportable 08/31/20 06:20 Toxic Granulation Not Reportable 08/31/20 06:20 Toxic Vacuolation Not Reportable 08/31/20 06:20 Dohle Bodies Not Reportable 08/31/20 06:20 Pelger-Huet Anomaly Not Reportable 08/31/20 06:20 Marie Rods Not Reportable 08/31/20 06:20 Platelet Estimate Consistent w auto 08/31/20 06:20 Clumped Platelets Not Reportable 08/31/20 06:20 Plt Clumps, EDTA Not Reportable 08/31/20 06:20 Large Platelets Not Reportable 08/31/20 06:20 Giant Platelets Not Reportable 08/31/20 06:20 Platelet Satelliting Not Reportable 08/31/20 06:20 Plt Morphology Comment Not Reportable 08/31/20 06:20 RBC Morphology Not Reportable 08/31/20 06:20 Dimorphic RBCs Not Reportable 08/31/20 06:20 Polychromasia Not Reportable 08/31/20 06:20 Hypochromasia Not Reportable 08/31/20 06:20 Poikilocytosis Not Reportable 08/31/20 06:20 Anisocytosis 1+ 08/31/20 06:20 Microcytosis Not Reportable 08/31/20 06:20 Macrocytosis Not Reportable 08/31/20 06:20 Spherocytes Not Reportable 08/31/20 06:20 Pappenheimer Bodies Not Reportable 08/31/20 06:20 Sickle Cells Not Reportable 08/31/20 06:20 Target Cells Not Reportable 08/31/20 06:20 Tear Drop Cells Not Reportable 08/31/20 06:20 Ovalocytes Not Reportable 08/31/20 06:20 Helmet Cells Not Reportable 08/31/20 06:20 [place] Bodies Not Reportable 08/31/20 06:20 [place] Rings Not Reportable 08/31/20 06:20 Darren Cells Not Reportable 08/31/20 06:20 Bite Cells Not Reportable 08/31/20 06:20 Crenated Cell Not Reportable 08/31/20 06:20 Elliptocytes Not Reportable 08/31/20 06:20 Acanthocytes (Spur) Not Reportable 08/31/20 06:20 Rouleaux Not Reportable 08/31/20 06:20 Hemoglobin C Crystals Not Reportable 08/31/20 06:20 Schistocytes Not Reportable 08/31/20 06:20 Malaria parasites Not Reportable 08/31/20 06:20 Payam Bodies Not Reportable 08/31/20 06:20 Hem Pathologist Commnt No 08/31/20 06:20 D-Dimer 2409.74 ng/mlDDU (0-234) H 08/18/20 Unknown Sodium 146 mmol/L (137-145) H 08/31/20 06:20 Potassium 4.2 mmol/L (3.6-5.0) D 08/31/20 06:20 Chloride 109.4 mmol/L (98-107) H 08/31/20 06:20 Carbon Dioxide 31 mmol/L (22-30) H D 08/31/20 06:20 Anion Gap 10 mmol/L 08/31/20 06:20 BUN 27 mg/dL (7-17) H 08/31/20 06:20 Creatinine 0.4 mg/dL (0.6-1.2) L 08/31/20 06:20 Estimated GFR > 60 ml/min 08/31/20 06:20 BUN/Creatinine Ratio 68 % 08/31/20 06:20 Glucose 256 mg/dL (65-100) H 08/31/20 06:20 POC Glucose 188 mg/dL (70-105) H 08/31/20 11:01 Lactic Acid 1.00 mmol/L (0.7-2.0) 08/18/20 18:25 Calcium 8.1 mg/dL (8.4-10.2) L 08/31/20 06:20 Phosphorus 3.60 mg/dL (2.5-4.5) D 08/31/20 06:20 Magnesium 2.00 mg/dL (1.7-2.3) 08/31/20 06:20 Ferritin 1950.0 ng/mL (10.0-200.0) H 08/18/20 15:35 Total Bilirubin 0.60 mg/dL (0.1-1.2) 08/29/20 05:43 AST 9 units/L (5-40) 08/29/20 05:43 ALT 9 units/L (7-56) 08/29/20 05:43 Alkaline Phosphatase 47 units/L (35-129) 08/29/20 05:43 Ammonia 32.0 umol/L (25-60) 08/25/20 09:06 Lactate Dehydrogenase 228 units/L (91-180) H 08/18/20 15:35 Total Creatine Kinase 164 units/L (30-135) H 08/22/20 19:44 Troponin T 0.075 ng/mL (0.00-0.029) H 08/18/20 18:25 C-Reactive Protein 35.60 mg/dL (0.00-1.30) H 08/18/20 15:35 Total Protein 4.6 g/dL (6.3-8.2) L 08/29/20 05:43 Albumin 2.4 g/dL (3.9-5) L 08/29/20 05:43 Albumin/Globulin Ratio 1.1 % 08/29/20 05:43 Triglycerides 70 mg/dL (2-149) 08/31/20 06:20 Cholesterol 79 mg/dL (50-199) 08/18/20 18:25 LDL Cholesterol Direct 42 mg/dL (50-130) L 08/18/20 18:25 HDL Cholesterol 23 mg/dL (40-59) L 08/18/20 18:25 Cholesterol/HDL Ratio 3.43 % 08/18/20 18:25 Vitamin B12 721.0 pg/mL (211-911) 08/25/20 09:06 Folate 8.34 ng/mL (7.3-26.0) 08/25/20 09:06 Procalcitonin 4.00 ng/mL (<0.15) 08/18/20 15:35 TSH 0.056 mlU/mL (0.270-4.200) L 08/24/20 17:02 Free T4 1.59 ng/dL (0.76-1.46) H 08/26/20 10:22 Total Cortisol 60.0 mcg/dL () 08/24/20 17:02 Urine Color Jacqueline (Yellow) 08/18/20 Unknown Urine Turbidity Hazy (Clear) 08/18/20 Unknown Urine pH 5.0 (5.0-7.0) 08/18/20 Unknown Ur Specific [place]aylor 1.020 (1.003-1.030) 08/18/20 Unknown Urine Protein 30 mg/dl mg/dL (Negative) 08/18/20 Unknown Urine Glucose (UA) 50 mg/dL (Negative) 08/18/20 Unknown Urine Ketones Neg mg/dL (Negative) 08/18/20 Unknown Urine Blood Neg (Negative) 08/18/20 Unknown Urine Nitrite Neg (Negative) 08/18/20 Unknown Urine Bilirubin Neg (Negative) 08/18/20 Unknown Urine Urobilinogen 4.0 mg/dL (<2.0) 08/18/20 Unknown Ur Leukocyte Esterase Tr (Negative) 08/18/20 Unknown Urine WBC (Auto) 41.0 /HPF (0.0-6.0) H 08/18/20 Unknown Urine RBC (Auto) 4.0 /HPF (0.0-6.0) 08/18/20 Unknown U Epithel Cells (Auto) 1.0 /HPF (0-13.0) 08/18/20 Unknown Urine Mucus 3+ /HPF 08/18/20 Unknown Random Vancomycin 9.8 ug/mL (0-40.0) 08/19/20 19:02 Coronavirus (PCR) Positive (Negative) A 08/24/20 Unknown Blood Type O POSITIVE 08/27/20 20:44 Antibody Screen Negative 08/27/20 20:44 Crossmatch See Detail 08/27/20 20:44 [place]/IV: Voiding Method Indwelling Catheter IV Catheter Type [Left Triple Lumen Cath Internal Jugular] IV Catheter Type [Left] CVL Active Medications - Current Medications Current Medications: Generic Name Dose Route Start Last Admin Trade Name Freq PRN Reason Stop Dose Admin Lipase/Protease/Amylase 1 each 08/25/20 16:57 Lipase 10,500/Protease 25,000/Amylase 43,750 (Units) Dr Fernandez FEEDTUBE PRN PRN For Clogged Feeding Tube Atropine Sulfate 1 mg 08/23/20 16:56 Atropine 1 Mg/Ml Vial IV PRN PRN Bradycardia Hydrocortisone Sodium Succinate 10 mg 08/27/20 10:07 08/31/20 10:44 Hydrocortisone Sod Succ 100 Mg/2 Ml Vial IV 10 mg Q12HR BARBARA Administration Levetiracetam 750 mg/ Dextrose 107.5 mls @ 400 mls/hr 08/24/20 12:00 08/31/20 10:45 IV 400 mls/hr Q12HR BARBARA Administration Amino Acids/Electrolytes/Dextrose 1,800 mls @ 75 mls/hr 08/30/20 20:00 08/30/20 21:08 Tpn Adult IV 08/31/20 19:59 75 mls/hr DAILY@2000 BARBAAR Administration Protocol Levothyroxine Sodium 25 mcg 08/24/20 13:00 08/31/20 06:25 Levothyroxine 100 Mcg Inj IV 25 mcg DAILY@0600 BARBARA Administration Pantoprazole Sodium 40 mg 08/26/20 22:00 08/31/20 10:44 Pantoprazole 40 Mg Inj IV 40 mg BID BARBARA Administration Simple Syrup 15 ml 08/25/20 15:57 Simple Syrup 15 Ml FEEDTUBE PRN PRN Hypoglycemia Simple Syrup 30 ml 08/25/20 15:57 Simple Syrup 15 Ml FEEDTUBE PRN PRN Hypoglycemia Sodium Bicarbonate 325 mg 08/25/20 15:57 Sodium Bicarbonate 325 Mg Tab FEEDTUBE PRN PRN For Clogged Feeding Tube Nutrition/Malnutrition Assess - Dietary Evaluation Nutrition/Malnutrition Findings: Nutrition Notes Start: 08/23/20 10:57 Freq: Status: Active Protocol: Document 08/30/20 13:14 AB (Rec: 08/30/20 13:28 AB [id number]) Co-Sign 08/30/20 13:14 MK Nutrition Notes Initial or Follow up Reassessment Current Diagnosis Acute Kidney Injury,Diabetes, Sepsis Other Pertinent Diagnosis Encephalopathy, COVID-19 (+), GIB, UTI Current Diet TPN at 75 ml/hr Labs/Tests K 3.0 BUN 33 Cr 0.5 Phos 1.7 Pertinent Medications KCl 10 meq K3PO4 30 mmol Height 5 ft 5 in Weight 74.4 kg [place] Body Weight (kg) 56.81 BMI 27.3 Weight Status Appropriate Subjective/Other Information F/U for TPN. Pt with TLC. Per RN, pt received first TPN bag today. Per RN, unable to place DHT again. Percent of energy/protein needs met: 97%/100% Burn Absent Trauma Absent GI Symptoms None Difficulty In Chewing Usual Diet at Home unknown Skin Integrity/Comment Xavier Score 15 Current % PO Negligible Minimum of two criteria No Energy Intake (severe) < or equal to 50% Estimated Energy Requirement > or equal to 5 days #1 Nutrition Diagnosis Inadequate oral intake Diagnosis Progress(for reassessment Continues documentation) Is patient on ventilator? No Is Patient Ambulatory and/or Out of Bed No REE-([facility]-confined to bed) 1452.828 Calculation Used for Recommendations [facility] Additional Notes Pro needs 1-1.2g/k-89g/ day Fluid needs 1ml/kcal Nutrition Intervention Nutrition Support: Central TPN (4.2% amino acids, 10% dextrose) at 75 ml/hr. Osmolality: 1125 MVI, Thiamine, MTE, K 100 mEq, Phos 30 mmol Kcal 912 Protein (gm) 75 Carbohydrates (gm) 180 Fat (gm) 0 Fluid (mL) 1,800 Goal #1 PN to meet nutrient needs as best possible Anticipated Discharge Needs: Unable to determine at this time Follow-Up By: 08/31/20 Additional Comments Labs in am: BMP, Mg, Phos, TG
[2020-08-31] MEDS ORDERED: TOTAL PARENTERAL NUTRITION 2,016 ML IV SCH (20:00)
[2020-08-31] MEDS ORDERED: FAT EMULSIONS 20% 250 ML IV SCH (20:00)
[2020-08-31] MEDS: hydrALAZINE 20 MG/1 ML INJ IV PRN (21:34)
--- NOTE | 2020-08-31 22:29 | Progress Note ---
Assessment and Plan 80 y/o F w/ suprasellar mass s/p radiation with hypopituitarism. Imaging studies were reviewed. 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 She has a recent history of COVID-10 which was managed at [facility]. She was admitted to [facility] due to lethargy and diminished energy. NSGY was consulted for further management. Objective - Vital Sign Vital Signs - 12hr 08/31/20 08/31/20 08/31/20 11:06 16:44 21:05 Temperature 98.6 F 98.2 F 97.6 F Pulse Rate 69 84 125 H Respiratory 22 24 24 Rate Blood Pressure 148/57 174/85 209/115 O2 Sat by Pulse 100 99 100 Oximetry 08/31/20 08/31/20 21:07 21:34 Temperature 97.6 F Pulse Rate Respiratory 24 Rate Blood Pressure 194/93 194/93 O2 Sat by Pulse Oximetry - Laboratory Findings CBC and BMP: 08/31/20 06:20 08/31/20 06:20 Abnormal Lab Findings: Abnormal Labs 08/18/20 08/18/20 08/18/20 15:35 15:35 15:35 WBC RBC Hgb Hct MCH RDW Plt Count Lymph % (Auto) Lymph # (Auto) [place] # (Auto) Seg Neutrophils % Seg Neuts % (Manual) Lymphocytes % (Manual) Seg Neutrophils # Seg Neutrophils # Man Lymphocytes # (Manual) Monocytes # (Manual) D-Dimer Sodium 146 H Potassium Chloride Carbon Dioxide 21 L BUN 55 H Creatinine 3.5 H Glucose 154 H POC Glucose Lactic Acid 2.30 H* Calcium Phosphorus Ferritin Ammonia 17.0 L Lactate Dehydrogenase Total Creatine Kinase Troponin T 0.078 H C-Reactive Protein Total Protein 6.2 L Albumin 2.1 L LDL Cholesterol Direct HDL Cholesterol TSH Free T4 Free T3 Index Urine WBC (Auto) Coronavirus (PCR) Crossmatch 1208/18/20 08/18/20 15:35 15:35 18:25 WBC RBC Hgb Hct MCH RDW Plt Count Lymph % (Auto) Lymph # (Auto) [place] # (Auto) Seg Neutrophils % Seg Neuts % (Manual) Lymphocytes % (Manual) Seg Neutrophils # Seg Neutrophils # Man Lymphocytes # (Manual) Monocytes # (Manual) D-Dimer Sodium Potassium Chloride Carbon Dioxide BUN Creatinine Glucose 152 H POC Glucose Lactic Acid Calcium Phosphorus Ferritin 1950.0 H Ammonia Lactate Dehydrogenase 228 H Total Creatine Kinase Troponin T 0.075 H C-Reactive Protein 35.60 H Total Protein Albumin LDL Cholesterol Direct 42 L HDL Cholesterol 23 L TSH Free T4 Free T3 Index Urine WBC (Auto) Coronavirus (PCR) Crossmatch 08/18/20 08/18/20 08/18/20 Unknown Unknown Unknown WBC 20.3 H RBC 3.40 L Hgb 9.8 L Hct 29.0 L MCH RDW 15.8 H Plt Count Lymph % (Auto) Lymph # (Auto) [place] # (Auto) Seg Neutrophils % Seg Neuts % (Manual) 93.0 H Lymphocytes % (Manual) 2.0 L Seg Neutrophils # Seg Neutrophils # Man 18.9 H Lymphocytes # (Manual) 0.4 L Monocytes # (Manual) 1.0 H D-Dimer 2409.74 H Sodium Potassium Chloride Carbon Dioxide BUN Creatinine Glucose POC Glucose Lactic Acid Calcium Phosphorus Ferritin Ammonia Lactate Dehydrogenase Total Creatine Kinase Troponin T C-Reactive Protein Total Protein Albumin LDL Cholesterol Direct HDL Cholesterol TSH Free T4 Free T3 Index Urine WBC (Auto) 41.0 H Coronavirus (PCR) Crossmatch 08/19/20 08/19/20 08/21/20 08:32 12:53 01:51 WBC RBC Hgb Hct MCH RDW Plt Count Lymph % (Auto) Lymph # (Auto) [place] # (Auto) Seg Neutrophils % Seg Neuts % (Manual) Lymphocytes % (Manual) Seg Neutrophils # Seg Neutrophils # Man Lymphocytes # (Manual) Monocytes # (Manual) D-Dimer Sodium 148 H Potassium Chloride 113.7 H Carbon Dioxide 21 L BUN 64 H Creatinine 1.9 H Glucose 200 H POC Glucose 236 H Lactic Acid Calcium Phosphorus Ferritin Ammonia Lactate Dehydrogenase Total Creatine Kinase 1492 H Troponin T C-Reactive Protein Total Protein Albumin LDL Cholesterol Direct HDL Cholesterol TSH Free T4 Free T3 Index Urine WBC (Auto) Coronavirus (PCR) Positive A Crossmatch 0108/22/20 08/22/20 13:20 19:44 19:44 WBC RBC 7.02 H Hgb 19.5 H Hct 59.6 H* MCH RDW 16.2 H Plt Count 123 L Lymph % (Auto) Lymph # (Auto) [place] # (Auto) Seg Neutrophils % Seg Neuts % (Manual) Lymphocytes % (Manual) Seg Neutrophils # Seg Neutrophils # Man Lymphocytes # (Manual) Monocytes # (Manual) D-Dimer Sodium Potassium Chloride 112.2 H 110.4 H Carbon Dioxide 20 L 18 L BUN 59 H 48 H Creatinine Glucose 278 H 306 H POC Glucose Lactic Acid Calcium Phosphorus Ferritin Ammonia Lactate Dehydrogenase Total Creatine Kinase Troponin T C-Reactive Protein Total Protein Albumin LDL Cholesterol Direct HDL Cholesterol TSH Free T4 Free T3 Index Urine WBC (Auto) Coronavirus (PCR) Crossmatch 08/22/20 08/22/20 08/22/20 19:44 21:14 21:14 WBC 13.7 H RBC Hgb Hct MCH 27 L RDW 15.5 H Plt Count Lymph % (Auto) Lymph # (Auto) [place] # (Auto) Seg Neutrophils % Seg Neuts % (Manual) 92.0 H Lymphocytes % (Manual) 5.0 L Seg Neutrophils # Seg Neutrophils # Man 12.6 H Lymphocytes # (Manual) 0.7 L Monocytes # (Manual) D-Dimer Sodium Potassium Chloride 108.8 H Carbon Dioxide 20 L BUN 45 H Creatinine Glucose 286 H POC Glucose Lactic Acid Calcium Phosphorus Ferritin Ammonia Lactate Dehydrogenase Total Creatine Kinase 164 H Troponin T C-Reactive Protein Total Protein Albumin LDL Cholesterol Direct HDL Cholesterol TSH Free T4 Free T3 Index Urine WBC (Auto) Coronavirus (PCR) Crossmatch 08/23/20 08/23/20 08/23/20 04:32 04:32 15:31 WBC 13.6 H RBC 3.60 L Hgb 9.6 L Hct MCH 27 L RDW 15.9 H Plt Count Lymph % (Auto) 4.5 L Lymph # (Auto) 0.6 L [place] # (Auto) Seg Neutrophils % 91.9 H Seg Neuts % (Manual) Lymphocytes % (Manual) Seg Neutrophils # 12.5 H Seg Neutrophils # Man Lymphocytes # (Manual) Monocytes # (Manual) D-Dimer Sodium Potassium Chloride 111.8 H Carbon Dioxide BUN 42 H Creatinine Glucose 241 H POC Glucose 206 H Lactic Acid Calcium Phosphorus Ferritin Ammonia Lactate Dehydrogenase Total Creatine Kinase Troponin T C-Reactive Protein Total Protein Albumin LDL Cholesterol Direct HDL Cholesterol TSH Free T4 Free T3 Index Urine WBC (Auto) Coronavirus (PCR) Crossmatch 08/24/20 08/24/20 08/24/20 05:05 05:05 17:02 WBC 13.6 H RBC Hgb Hct MCH 27 L RDW 16.2 H Plt Count Lymph % (Auto) Lymph # (Auto) [place] # (Auto) Seg Neutrophils % Seg Neuts % (Manual) Lymphocytes % (Manual) Seg Neutrophils # Seg Neutrophils # Man Lymphocytes # (Manual) Monocytes # (Manual) D-Dimer Sodium Potassium Chloride 115.4 H Carbon Dioxide BUN 37 H Creatinine Glucose 185 H POC Glucose Lactic Acid Calcium Phosphorus Ferritin Ammonia Lactate Dehydrogenase Total Creatine Kinase Troponin T C-Reactive Protein Total Protein Albumin LDL Cholesterol Direct HDL Cholesterol TSH 0.056 L Free T4 Free T3 Index Urine WBC (Auto) Coronavirus (PCR) Crossmatch 08/24/20 08/25/20 08/25/20 Unknown 05:43 05:43 WBC 16.7 H RBC Hgb 10.0 L Hct MCH 27 L RDW 15.8 H Plt Count Lymph % (Auto) Lymph # (Auto) [place] # (Auto) Seg Neutrophils % Seg Neuts % (Manual) Lymphocytes % (Manual) Seg Neutrophils # Seg Neutrophils # Man Lymphocytes # (Manual) Monocytes # (Manual) D-Dimer Sodium 146 H Potassium Chloride 114.6 H Carbon Dioxide BUN 34 H Creatinine Glucose 167 H POC Glucose Lactic Acid Calcium Phosphorus Ferritin Ammonia Lactate Dehydrogenase Total Creatine Kinase Troponin T C-Reactive Protein Total Protein Albumin LDL Cholesterol Direct HDL Cholesterol TSH Free T4 Free T3 Index Urine WBC (Auto) Coronavirus (PCR) Positive A Crossmatch 08/26/20 08/26/20 08/26/20 05:13 05:13 10:22 WBC 17.2 H RBC 3.58 L Hgb 9.7 L Hct MCH 27 L RDW 15.9 H Plt Count Lymph % (Auto) Lymph # (Auto) [place] # (Auto) Seg Neutrophils % Seg Neuts % (Manual) Lymphocytes % (Manual) Seg Neutrophils # Seg Neutrophils # Man Lymphocytes # (Manual) Monocytes # (Manual) D-Dimer Sodium 147 H Potassium 3.4 L Chloride 114.8 H Carbon Dioxide BUN 36 H Creatinine Glucose 134 H POC Glucose Lactic Acid Calcium Phosphorus Ferritin Ammonia Lactate Dehydrogenase Total Creatine Kinase Troponin T C-Reactive Protein Total Protein Albumin LDL Cholesterol Direct HDL Cholesterol TSH Free T4 1.59 H Free T3 Index Urine WBC (Auto) Coronavirus (PCR) Crossmatch 08/26/20 08/26/20 08/26/20 10:22 18:20 23:50 WBC RBC Hgb 8.4 L 8.0 L Hct 26.1 L 24.6 L MCH RDW Plt Count Lymph % (Auto) Lymph # (Auto) [place] # (Auto) Seg Neutrophils % Seg Neuts % (Manual) Lymphocytes % (Manual) Seg Neutrophils # Seg Neutrophils # Man Lymphocytes # (Manual) Monocytes # (Manual) D-Dimer Sodium Potassium Chloride Carbon Dioxide BUN Creatinine Glucose POC Glucose Lactic Acid Calcium Phosphorus Ferritin Ammonia Lactate Dehydrogenase Total Creatine Kinase Troponin T C-Reactive Protein Total Protein Albumin LDL Cholesterol Direct HDL Cholesterol TSH Free T4 Free T3 Index 1.2 L Urine WBC (Auto) Coronavirus (PCR) Crossmatch 08/27/20 08/27/20 08/27/20 05:22 05:22 19:45 WBC 18.0 H 20.9 H RBC 2.83 L 2.50 L Hgb 7.8 L 6.8 L Hct 24.1 L 21.3 L MCH 27 L 27 L RDW 15.9 H 16.1 H Plt Count Lymph % (Auto) 8.4 L Lymph # (Auto) [place] # (Auto) Seg Neutrophils % 86.9 H Seg Neuts % (Manual) 82.0 H Lymphocytes % (Manual) 7.0 L Seg Neutrophils # 15.6 H Seg Neutrophils # Man 17.1 H Lymphocytes # (Manual) Monocytes # (Manual) 1.3 H D-Dimer Sodium 150 H Potassium 3.5 L Chloride 118.7 H Carbon Dioxide BUN 36 H Creatinine Glucose 201 H POC Glucose Lactic Acid Calcium Phosphorus Ferritin Ammonia Lactate Dehydrogenase Total Creatine Kinase Troponin T C-Reactive Protein Total Protein Albumin LDL Cholesterol Direct HDL Cholesterol TSH Free T4 Free T3 Index Urine WBC (Auto) Coronavirus (PCR) Crossmatch 08/27/20 08/28/20 08/28/20 20:44 10:07 10:07 WBC 20.5 H RBC 3.01 L Hgb 8.4 L Hct 26.1 L MCH RDW 15.4 H Plt Count Lymph % (Auto) Lymph # (Auto) [place] # (Auto) Seg Neutrophils % Seg Neuts % (Manual) 90.0 H Lymphocytes % (Manual) 3.0 L Seg Neutrophils # Seg Neutrophils # Man 18.5 H Lymphocytes # (Manual) 0.6 L Monocytes # (Manual) D-Dimer Sodium 149 H Potassium 3.5 L Chloride 119.3 H Carbon Dioxide BUN 37 H Creatinine Glucose 137 H POC Glucose Lactic Acid Calcium Phosphorus Ferritin Ammonia Lactate Dehydrogenase Total Creatine Kinase Troponin T C-Reactive Protein Total Protein Albumin LDL Cholesterol Direct HDL Cholesterol TSH Free T4 Free T3 Index Urine WBC (Auto) Coronavirus (PCR) Crossmatch See Detail 08/29/20 08/29/20 08/29/20 05:43 05:43 05:50 WBC 20.5 H RBC Hgb Hct MCH RDW Plt Count Lymph % (Auto) 6.3 L Lymph # (Auto) [place] # (Auto) Seg Neutrophils % 89.7 H Seg Neuts % (Manual) Lymphocytes % (Manual) Seg Neutrophils # 18.4 H Seg Neutrophils # Man Lymphocytes # (Manual) Monocytes # (Manual) D-Dimer Sodium 147 H Potassium 3.4 L Chloride 115.9 H Carbon Dioxide BUN 32 H Creatinine 0.5 L Glucose 238 H POC Glucose 193 H Lactic Acid Calcium 8.3 L Phosphorus 2.10 L Ferritin Ammonia Lactate Dehydrogenase Total Creatine Kinase Troponin T C-Reactive Protein Total Protein 4.6 L Albumin 2.4 L LDL Cholesterol Direct HDL Cholesterol TSH Free T4 Free T3 Index Urine WBC (Auto) Coronavirus (PCR) Crossmatch 08/29/20 08/30/20 08/30/20 11:22 05:35 05:35 WBC 21.9 H RBC Hgb Hct MCH RDW 15.3 H Plt Count 136 L Lymph % (Auto) 9.5 L Lymph # (Auto) [place] # (Auto) 1.0 H Seg Neutrophils % 85.5 H Seg Neuts % (Manual) Lymphocytes % (Manual) Seg Neutrophils # 18.7 H Seg Neutrophils # Man Lymphocytes # (Manual) Monocytes # (Manual) D-Dimer Sodium Potassium 3.0 L Chloride 112.1 H Carbon Dioxide BUN 33 H Creatinine 0.5 L Glucose 211 H POC Glucose 207 H Lactic Acid Calcium 8.3 L Phosphorus 1.70 L Ferritin Ammonia Lactate Dehydrogenase Total Creatine Kinase Troponin T C-Reactive Protein Total Protein Albumin LDL Cholesterol Direct HDL Cholesterol TSH Free T4 Free T3 Index Urine WBC (Auto) Coronavirus (PCR) Crossmatch 08/30/20 08/30/20 08/30/20 05:58 11:07 16:41 WBC RBC Hgb Hct MCH RDW Plt Count Lymph % (Auto) Lymph # (Auto) [place] # (Auto) Seg Neutrophils % Seg Neuts % (Manual) Lymphocytes % (Manual) Seg Neutrophils # Seg Neutrophils # Man Lymphocytes # (Manual) Monocytes # (Manual) D-Dimer Sodium Potassium Chloride Carbon Dioxide BUN Creatinine Glucose POC Glucose 179 H 153 H 225 H Lactic Acid Calcium Phosphorus Ferritin Ammonia Lactate Dehydrogenase Total Creatine Kinase Troponin T C-Reactive Protein Total Protein Albumin LDL Cholesterol Direct HDL Cholesterol TSH Free T4 Free T3 Index Urine WBC (Auto) Coronavirus (PCR) Crossmatch 08/30/20 08/31/20 08/31/20 23:24 05:19 06:20 WBC 17.3 H RBC Hgb Hct MCH RDW 15.6 H Plt Count 122 L Lymph % (Auto) Lymph # (Auto) [place] # (Auto) Seg Neutrophils % Seg Neuts % (Manual) 87.0 H Lymphocytes % (Manual) 5.0 L Seg Neutrophils # Seg Neutrophils # Man 15.1 H Lymphocytes # (Manual) 0.9 L Monocytes # (Manual) 0.9 H D-Dimer Sodium Potassium Chloride Carbon Dioxide BUN Creatinine Glucose POC Glucose 227 H 203 H Lactic Acid Calcium Phosphorus Ferritin Ammonia Lactate Dehydrogenase Total Creatine Kinase Troponin T C-Reactive Protein Total Protein Albumin LDL Cholesterol Direct HDL Cholesterol TSH Free T4 Free T3 Index Urine WBC (Auto) Coronavirus (PCR) Crossmatch 08/31/20 08/31/20 08/31/20 06:20 11:01 16:42 WBC RBC Hgb Hct MCH RDW Plt Count Lymph % (Auto) Lymph # (Auto) [place] # (Auto) Seg Neutrophils % Seg Neuts % (Manual) Lymphocytes % (Manual) Seg Neutrophils # Seg Neutrophils # Man Lymphocytes # (Manual) Monocytes # (Manual) D-Dimer Sodium 146 H Potassium Chloride 109.4 H Carbon Dioxide 31 H D BUN 27 H Creatinine 0.4 L Glucose 256 H POC Glucose 188 H 245 H Lactic Acid Calcium 8.1 L Phosphorus Ferritin Ammonia Lactate Dehydrogenase Total Creatine Kinase Troponin T C-Reactive Protein Total Protein Albumin LDL Cholesterol Direct HDL Cholesterol TSH Free T4 Free T3 Index Urine WBC (Auto) Coronavirus (PCR) Crossmatch
[2020-08-31] MEDS: cloNIDine TTS 0.2 MG/24 HR PATCH TD SCH (23:35)
[2020-09-01] MEDS: LEVOTHYROXINE 100 MCG INJ IV SCH (05:35)
[2020-09-01 06:45] LABS: Blood Urea Nitrogen 25 mg/dL (7-17); Calcium 7.8 mg/dL (8.4-10.2); Hemolysis Index 17
[2020-09-01 06:46] LABS: BUN/Creatinine Ratio 63
[2020-09-01] MEDS: levETIRAcetam 750 MG in DEXTROSE 5% IN WATER 100 ML IV SCH ×2 (10:22→21:12)
[2020-09-01] MEDS: PANTOPRAZOLE 40 MG INJ IV SCH ×2 (10:22→21:10)
[2020-09-01] MEDS: HYDROCORTISONE SOD SUCC 100 MG/2 ML VIAL IV SCH ×2 (10:22→21:10)
--- NOTE | 2020-09-01 10:30 | Progress Note ---
Assessment and Plan Altered mental status brain MRI reports extensive skull base meningioma Covid 19 infection Paroxysmal atrial fibrillation rate control has been optimal without use of significant AV yoan blocking therapy, suggesting underlying conduction system disease. Rectal bleeding s/p 1 unit PRBC transfusion Advanced dementia Further use of long-term anticoagulation will not be recommended at this time, in the setting of the recent GI bleed and resultant severe anemia. Conservative cardiac management. Subjective Date of service: 09/01/20 Principal diagnosis: Acute encephalopathy Interval history: No interval cardiac changes. Stable sinus rhythm on telemetry. Objective Vital Signs Temp Pulse Resp BP Pulse Ox 09/01/20 04:34 97.4 F L 74 20 139/61 100 08/31/20 21:34 194/93 08/31/20 21:07 97.6 F 24 194/93 08/31/20 21:05 97.6 F 125 H 24 209/115 100 08/31/20 16:44 98.2 F 84 24 174/85 99 08/31/20 11:06 98.6 F 69 22 148/57 100 - Physical Examination Narrative exam: Deferred due to isolation protocol. Cardiac: Positive: Reg Rate and Rhythm - Labs and Meds Comprehensive Metabolic Panel 09/01/20 Range/Units 05:57 Sodium 141 (137-145) mmol/L Potassium 3.7 (3.6-5.0) mmol/L Chloride 104.5 (98-107) mmol/L Carbon Dioxide 30 (22-30) mmol/L BUN 25 H (7-17) mg/dL Creatinine 0.4 L (0.6-1.2) mg/dL Glucose 281 H (65-100) mg/dL Calcium 7.8 L (8.4-10.2) mg/dL
--- NOTE | 2020-09-01 11:16 | Progress Note ---
Assessment and Plan Assessment and plan: Assessment and plan: Acute toxic metabolic encephalopathy: Still persists. Completed antibiotics for UTI. Will get LP to rule out encephalitis GI bleed/hematochezia. Nurse noted bloody stool on 08/26-08/27. Plan for colonoscopy as per GI UTI: Urine and blood cultures negative. Continue cefepime per ID recommendation Sepsis: Etiology secondary to above. Acute hypoxic respiratory failure: Continue oxygen supplementation. 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 D-dimer noted to be 2409.7 and thus empirically started on therapeutic dose anticoagulation. Anticoagulation discontinued as patient's started having drop in hemoglobin. PAWAN: Renally dose medications. 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 Patient had brain irradiation for endocrine tumor. No baseline MRI to compare with. Given altered mental status, will consult neurosurgery for further evaluation. Poor intake - On TPN as NG tube could not be placed. GI will be consulted for NG tube placement via endoscopy vs PEG placement 08/24/2020. Patient still mildly confused. However, I suspect patient has underlying Alzheimer's dementia and this is her baseline. I discussed plan of care and altered mentation with sister at [phone]. Patient will need DME of hospital bed and oxygen for discharge home. Await physical therapy recommendations. 08/25/2020. Patient still lethargic and confused. Patient receiving hydrocortisone 50 mg IV twice daily for adrenal insufficiency. Check B12, folate and ammonia levels. Neurology consultation pending. Continue supplemental oxygen to maintain sats greater than 92%. 08/26/2020. Encephalopathy likely secondary to toxic metabolic causes in the setting of leukocytosis, improving uremia, renal insufficiency, covid-19, underlying uti. Check CT head without contrast and EEG per neurology recommendations. However may need csf evaluation if brain imaging and eeg are unremarkable and pt continues to remain encephalopathic. Follow-up cortisol levels and T3-T4. 08/27/2020. Patient remains lethargic and confused. Encephalopathy is persistent and likely secondary to toxic metabolic causes from sepsis, renal insufficiency/uremia, COVID-[address] scan of the head found to be negative. Await EEG. Consider CSF evaluation if EEG unremarkable. Consult GI for further evaluation of hematochezia/GI bleed. Continue Protonix 40 mg IV twice daily. Transfuse for hemoglobin less than 7. Continue to monitor serial CBC. Lovenox discontinued which was empirically started for elevated D-dimer. 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 Decrease IV hydrocortisone. Follow-up cortisol levels and T3-T4. I updated the sister and family at [phone]. 08/28/2020. Follow-up EEG per neurology. GI reports if signs of hemodynamic changes, we will proceed with stat bleeding scan. Hemoglobin has dropped to 6.8. Type and cross and transfuse 2 units. Continue to hold anticoagulation. Continue Protonix 40 mg IV twice daily. Nursing reports inability to place NG tube. Place PICC line and start TPN. Dietitian consulted. ? NG tube placement under fluoroscopy. Patient may need PEG tube placement. 08/29/2020. Patient is s/p 3 units PRBCs. Hemoglobin has stabilized to 11.5. Continue to trend and follow serial H/H. Patient remains hemodynamically stable. If patient has a change, we will proceed with stat bleeding scan. GI following. Continue Protonix 40 mg IV twice daily. Continue to hold anticoagulation. Nursing reports inability to place NG tube. PICC line placed to initiate TPN. Dietitian consulted. ? NG tube placement under fluoroscopy. Patient may need PEG tube placement. 08/30/2020. Hemoglobin remained stable. Patient is on TPN and will not be discharged on TPN. NG tube could not be placed as per RN.. Awaiting EEG to rule out any seizures. If no etiology found, patient will benefit from a PEG placement as she has advanced dementia. Continue to hold anticoagulation due to recent GI bleed. GI to reevaluate for PEG placement. 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 Not clear if this is baseline. Need to retrieve her records from [facility] hospitalization. Neurosurgery consulted for evaluation. 09/01/2020. She is remains confused. Neurology evaluation appreciated. No intervention for brain mass. She is on hydrocortisone for hypopituitary function. Will adjust based o n cortisol levels. She will need to have PEG placement for feeds ultimately as she will not be on TPN for a long time. Will reconsult GI for NG tube placement. History Interval history: No acute events noted overnight. Hospitalist Physical - Physical exam Narrative exam: VITAL SIGNS: Reviewed. GENERAL: Awake HEAD: No signs of head trauma. EYES: Pupils are equal. Extraocular motions intact. MOUTH: Oropharynx is normal. NECK: No adenopathy, no JVD. CHEST: Chest with diminished breath sounds bilaterally. No wheezes, rales, or rhonchi. CARDIAC: normal S1 and S2, without murmurs, gallops, or rubs. ABDOMEN: Soft, non tender and non distended. No rebound or guarding, and no masses palpated. Bowel Sounds normal. MUSCULOSKELETAL: No edema NEUROLOGIC EXAM: Awake SKIN: No obvious lesions - Constitutional Vitals: Temp Pulse Resp BP Pulse Ox 97.4 F L 74 20 139/61 100 09/01/20 04:34 09/01/20 04:34 09/01/20 04:34 09/01/20 04:34 09/01/20 04:34 HEART Score - HEART Score Troponin: Troponin T 0.075 ng/mL (0.00-0.029) H 08/18/20 18:25 Troponin: 1-3x normal limit - Critical Actions Critical Actions: 4-6 pts:12-16.6% risk of adverse cardiac event. Should be admitted Results - Labs CBC & Chem 7: 08/31/20 06:20 09/01/20 05:57 Labs: Laboratory Last Values WBC 17.3 K/mm3 (4.5-11.0) H 08/31/20 06:20 RBC 3.76 M/mm3 (3.65-5.03) 08/31/20 06:20 Hgb 10.8 gm/dl (10.1-14.3) 08/31/20 06:20 Hct 32.7 % (30.3-42.9) 08/31/20 06:20 MCV 87 fl (79-97) 08/31/20 06:20 MCH 29 pg (28-32) 08/31/20 06:20 MCHC 33 % (30-34) 08/31/20 06:20 RDW 15.6 % (13.2-15.2) H 08/31/20 06:20 Plt Count 122 K/mm3 (140-440) L 08/31/20 06:20 Lymph % (Auto) 9.5 % (13.4-35.0) L 08/30/20 05:35 [place] % (Auto) 4.8 % (0.0-7.3) 08/30/20 05:35 Eos % (Auto) 0.1 % (0.0-4.3) 08/30/20 05:35 Baso % (Auto) 0.1 % (0.0-1.8) 08/30/20 05:35 Lymph # (Auto) 2.1 K/mm3 (1.2-5.4) 08/30/20 05:35 [place] # (Auto) 1.0 K/mm3 (0.0-0.8) H 08/30/20 05:35 Eos # (Auto) 0.0 K/mm3 (0.0-0.4) 08/30/20 05:35 Baso # (Auto) 0.0 K/mm3 (0.0-0.1) 08/30/20 05:35 Add Manual Diff Complete 08/31/20 06:20 Total Counted 100 08/31/20 06:20 Seg Neutrophils % 85.5 % (40.0-70.0) H 08/30/20 05:35 Seg Neuts % (Manual) 87.0 % (40.0-70.0) H 08/31/20 06:20 Band Neutrophils % 1.0 % 08/31/20 06:20 Lymphocytes % (Manual) 5.0 % (13.4-35.0) L 08/31/20 06:20 Reactive Lymphs % (Man) 1.0 % 08/28/20 10:07 Monocytes % (Manual) 5.0 % (0.0-7.3) 08/31/20 06:20 Metamyelocytes % 2.0 % 08/31/20 06:20 Nucleated RBC % Not Reportable 08/31/20 06:20 Seg Neutrophils # 18.7 K/mm3 (1.8-7.7) H 08/30/20 05:35 Seg Neutrophils # Man 15.1 K/mm3 (1.8-7.7) H 08/31/20 06:20 Band Neutrophils # 0.2 K/mm3 08/31/20 06:20 Lymphocytes # (Manual) 0.9 K/mm3 (1.2-5.4) L 08/31/20 06:20 Abs React Lymphs (Man) 0.0 K/mm3 08/31/20 06:20 Monocytes # (Manual) 0.9 K/mm3 (0.0-0.8) H 08/31/20 06:20 Eosinophils # (Manual) 0.0 K/mm3 (0.0-0.4) 08/31/20 06:20 Basophils # (Manual) 0.0 K/mm3 (0.0-0.1) 08/31/20 06:20 Metamyelocytes # 0.3 K/mm3 08/31/20 06:20 Myelocytes # 0.0 K/mm3 08/31/20 06:20 Promyelocytes # 0.0 K/mm3 08/31/20 06:20 Blast Cells # 0.0 K/mm3 08/31/20 06:20 WBC Morphology Not Reportable 08/31/20 06:20 Hypersegmented Neuts Not Reportable 08/31/20 06:20 Hyposegmented Neuts Not Reportable 08/31/20 06:20 Hypogranular Neuts Not Reportable 08/31/20 06:20 Smudge Cells Not Reportable 08/31/20 06:20 Toxic Granulation Not Reportable 08/31/20 06:20 Toxic Vacuolation Not Reportable 08/31/20 06:20 Dohle Bodies Not Reportable 08/31/20 06:20 Pelger-Huet Anomaly Not Reportable 08/31/20 06:20 Marie Rods Not Reportable 08/31/20 06:20 Platelet Estimate Consistent w auto 08/31/20 06:20 Clumped Platelets Not Reportable 08/31/20 06:20 Plt Clumps, EDTA Not Reportable 08/31/20 06:20 Large Platelets Not Reportable 08/31/20 06:20 Giant Platelets Not Reportable 08/31/20 06:20 Platelet Satelliting Not Reportable 08/31/20 06:20 Plt Morphology Comment Not Reportable 08/31/20 06:20 RBC Morphology Not Reportable 08/31/20 06:20 Dimorphic RBCs Not Reportable 08/31/20 06:20 Polychromasia Not Reportable 08/31/20 06:20 Hypochromasia Not Reportable 08/31/20 06:20 Poikilocytosis Not Reportable 08/31/20 06:20 Anisocytosis 1+ 08/31/20 06:20 Microcytosis Not Reportable 08/31/20 06:20 Macrocytosis Not Reportable 08/31/20 06:20 Spherocytes Not Reportable 08/31/20 06:20 Pappenheimer Bodies Not Reportable 08/31/20 06:20 Sickle Cells Not Reportable 08/31/20 06:20 Target Cells Not Reportable 08/31/20 06:20 Tear Drop Cells Not Reportable 08/31/20 06:20 Ovalocytes Not Reportable 08/31/20 06:20 Helmet Cells Not Reportable 08/31/20 06:20 [place] Bodies Not Reportable 08/31/20 06:20 Crockett Rings Not Reportable 08/31/20 06:20 Darren Cells Not Reportable 08/31/20 06:20 Bite Cells Not Reportable 08/31/20 06:20 Crenated Cell Not Reportable 08/31/20 06:20 Elliptocytes Not Reportable 08/31/20 06:20 Acanthocytes (Spur) Not Reportable 08/31/20 06:20 Rouleaux Not Reportable 08/31/20 06:20 Hemoglobin C Crystals Not Reportable 08/31/20 06:20 Schistocytes Not Reportable 08/31/20 06:20 Malaria parasites Not Reportable 08/31/20 06:20 [place]am Bodies Not Reportable 08/31/20 06:20 Hem Pathologist Commnt No 08/31/20 06:20 D-Dimer 2409.74 ng/mlDDU (0-234) H 08/18/20 Unknown Sodium 141 mmol/L (137-145) 09/01/20 05:57 Potassium 3.7 mmol/L (3.6-5.0) 09/01/20 05:57 Chloride 104.5 mmol/L (98-107) 09/01/20 05:57 Carbon Dioxide 30 mmol/L (22-30) 09/01/20 05:57 Anion Gap 10 mmol/L 09/01/20 05:57 BUN 25 mg/dL (7-17) H 09/01/20 05:57 Creatinine 0.4 mg/dL (0.6-1.2) L 09/01/20 05:57 Estimated GFR > 60 ml/min 09/01/20 05:57 BUN/Creatinine Ratio 63 % 09/01/20 05:57 Glucose 281 mg/dL (65-100) H 09/01/20 05:57 POC Glucose 221 mg/dL (70-105) H 09/01/20 10:59 Lactic Acid 1.00 mmol/L (0.7-2.0) 08/18/20 18:25 Calcium 7.8 mg/dL (8.4-10.2) L 09/01/20 05:57 Phosphorus 2.90 mg/dL (2.5-4.5) 09/01/20 05:57 Magnesium 2.10 mg/dL (1.7-2.3) 09/01/20 05:57 Ferritin 1950.0 ng/mL (10.0-200.0) H 08/18/20 15:35 Total Bilirubin 0.60 mg/dL (0.1-1.2) 08/29/20 05:43 AST 9 units/L (5-40) 08/29/20 05:43 ALT 9 units/L (7-56) 08/29/20 05:43 Alkaline Phosphatase 47 units/L (35-129) 08/29/20 05:43 Ammonia 32.0 umol/L (25-60) 08/25/20 09:06 Lactate Dehydrogenase 228 units/L (91-180) H 08/18/20 15:35 Total Creatine Kinase 164 units/L (30-135) H 08/22/20 19:44 Troponin T 0.075 ng/mL (0.00-0.029) H 08/18/20 18:25 C-Reactive Protein 35.60 mg/dL (0.00-1.30) H 08/18/20 15:35 Total Protein 4.6 g/dL (6.3-8.2) L 08/29/20 05:43 Albumin 2.4 g/dL (3.9-5) L 08/29/20 05:43 Albumin/Globulin Ratio 1.1 % 08/29/20 05:43 Triglycerides 70 mg/dL (2-149) 08/31/20 06:20 Cholesterol 79 mg/dL (50-199) 08/18/20 18:25 LDL Cholesterol Direct 42 mg/dL (50-130) L 08/18/20 18:25 HDL Cholesterol 23 mg/dL (40-59) L 08/18/20 18:25 Cholesterol/HDL Ratio 3.43 % 08/18/20 18:25 Vitamin B12 721.0 pg/mL (211-911) 08/25/20 09:06 Folate 8.34 ng/mL (7.3-26.0) 08/25/20 09:06 Procalcitonin 4.00 ng/mL (<0.15) 08/18/20 15:35 TSH 0.056 mlU/mL (0.270-4.200) L 08/24/20 17:02 Free T4 1.59 ng/dL (0.76-1.46) H 08/26/20 10:22 Free T3 Index 1.2 pg/mL (2.3-4.2) L 08/26/20 10:22 Total Cortisol 60.0 mcg/dL () 08/24/20 17:02 Urine Color Jacqueline (Yellow) 08/18/20 Unknown Urine Turbidity Hazy (Clear) 08/18/20 Unknown Urine pH 5.0 (5.0-7.0) 08/18/20 Unknown Ur Specific [place] 1.020 (1.003-1.030) 08/18/20 Unknown Urine Protein 30 mg/dl mg/dL (Negative) 08/18/20 Unknown Urine Glucose (UA) 50 mg/dL (Negative) 08/18/20 Unknown Urine Ketones Neg mg/dL (Negative) 08/18/20 Unknown Urine Blood Neg (Negative) 08/18/20 Unknown Urine Nitrite Neg (Negative) 08/18/20 Unknown Urine Bilirubin Neg (Negative) 08/18/20 Unknown Urine Urobilinogen 4.0 mg/dL (<2.0) 08/18/20 Unknown Ur Leukocyte Esterase Tr (Negative) 08/18/20 Unknown Urine WBC (Auto) 41.0 /HPF (0.0-6.0) H 08/18/20 Unknown Urine RBC (Auto) 4.0 /HPF (0.0-6.0) 08/18/20 Unknown U Epithel Cells (Auto) 1.0 /HPF (0-13.0) 12/31/20 Unknown Urine Mucus 3+ /HPF 08/18/20 Unknown Random Vancomycin 9.8 ug/mL (0-40.0) 08/19/20 19:02 Coronavirus (PCR) Positive (Negative) A 08/24/20 Unknown Blood Type O POSITIVE 08/27/20 20:44 Antibody Screen Negative 08/27/20 20:44 Crossmatch See Detail 08/27/20 20:44 [place]/IV: Voiding Method Indwelling Catheter IV Catheter Type [Left Triple Lumen Cath Internal Jugular] IV Catheter Type [Left] CVL Active Medications - Current Medications Current Medications: Generic Name Dose Route Start Last Admin Trade Name Freq PRN Reason Stop Dose Admin Lipase/Protease/Amylase 1 each 08/25/20 16:57 Lipase 10,500/Protease 25,000/Amylase 43,750 (Units) Dr Fernandez FEEDTUBE PRN PRN For Clogged Feeding Tube Atropine Sulfate 1 mg 08/23/20 16:56 Atropine 1 Mg/Ml Vial IV PRN PRN Bradycardia Clonidine HCl 0.2 mg 08/31/20 22:00 08/31/20 23:35 Clonidine Tts 0.2 Mg/24 Hr Patch TD 0.2 mg We BARBARA Administration Hydralazine HCl 5 mg 08/31/20 21:22 08/31/20 21:34 Hydralazine 20 Mg/1 Ml Inj IV 5 mg Q4H PRN Administration Blood Pressure Hydrocortisone Sodium Succinate 10 mg 08/27/20 10:07 09/01/20 10:22 Hydrocortisone Sod Succ 100 Mg/2 Ml Vial IV 10 mg Q12HR BARBARA Administration Levetiracetam 750 mg/ Dextrose 107.5 mls @ 400 mls/hr 08/24/20 12:00 09/01/20 10:22 IV 400 mls/hr Q12HR BARBARA Administration Amino Acids/Electrolytes/Dextrose 2,016 mls @ 84 mls/hr 08/31/20 20:00 08/31/20 21:26 Tpn Adult IV 09/01/20 19:59 84 mls/hr DAILY@1999 [facility] Administration Protocol Insulin Human Lispro 0 unit 09/01/20 10:00 Insulin Lispro 100 Unit/Ml Vial 3 Ml SUB-Q Q6H [facility] Protocol Levothyroxine Sodium 25 mcg 08/24/20 13:00 09/01/20 05:35 Levothyroxine 100 Mcg Inj IV 25 mcg DAILY@0600 BARBARA Administration Pantoprazole Sodium 40 mg 08/26/20 22:00 09/01/20 10:22 Pantoprazole 40 Mg Inj IV 40 mg BID BARBARA Administration Simple Syrup 15 ml 08/25/20 15:57 Simple Syrup 15 Ml FEEDTUBE PRN PRN Hypoglycemia Simple Syrup 30 ml 08/25/20 15:57 Simple Syrup 15 Ml FEEDTUBE PRN PRN Hypoglycemia Sodium Bicarbonate 325 mg 08/25/20 15:57 Sodium Bicarbonate 325 Mg Tab FEEDTUBE PRN PRN For Clogged Feeding Tube Nutrition/Malnutrition Assess - Dietary Evaluation Nutrition/Malnutrition Findings: Nutrition Notes Start: 08/23/20 10:57 Freq: Status: Active Protocol: Document 08/31/20 11:28 AB (Rec: 08/31/20 12:16 AB [id number]) Co-Sign 08/31/20 11:28 MK Nutrition Notes Initial or Follow up Reassessment Current Diagnosis Acute Kidney Injury,Diabetes, Sepsis Other Pertinent Diagnosis Encephalopathy, COVID-19 (+), GIB, UTI Current Diet TPN at 75 ml/hr Labs/Tests Na 146 Ca 8.1 BG 256 Pertinent Medications Reviewed Height 5 ft 5 in Weight 74.4 kg [place] Body Weight (kg) 56.81 BMI 27.3 Weight Status Appropriate Subjective/Other Information F/U for TPN. Per report, still unable to place DHT. Awaiting EEG and GI to approve PEG. Sleeping Car Porter asked RN for new wt. Percent of energy/protein needs met: 63%/100% Burn Absent Trauma Absent GI Symptoms None Difficulty In Chewing Current % PO Negligible Minimum of two criteria No Energy Intake (severe) < or equal to 50% Estimated Energy Requirement > or equal to 5 days #1 Nutrition Diagnosis Inadequate oral intake Diagnosis Progress(for reassessment Continues documentation) Is patient on ventilator? No Is Patient Ambulatory and/or Out of Bed No REE-([facility]-confined to bed) 1452.828 Calculation Used for Recommendations [facility] Additional Notes Pro needs 1-1.2g/k-89g/ day Fluid needs 1ml/kcal Nutrition Intervention Nutrition Support: TPN (3.7% amino acids, 11.4% dextrose) at 84 ml/hr. Osmolality: 1097 MVI,Thiamine, Lipids Na 78 mEq. K 55 mEq, Ca 11 mEq , Phos 22 mmol, 50/50% chloride/acetate [ End ] Kcal 1,582 Protein (gm) 75 Carbohydrates (gm) 230 Fat (gm) 50 Fluid (mL) 2,016 Goal #1 PN to meet nutrient needs as best possible Anticipated Discharge Needs: Unable to determine at this time Follow-Up By: 09/01/20 Additional Comments Labs in am: BMP, Mg, Phos
[2020-09-01] MEDS: INSULIN LISPRO 100 UNIT/ML VIAL 3 mL SUB-Q SCH ×3 (11:34→23:00)
[2020-09-01 16:24] LABS: INR 1.01 (0.87-1.13)
[2020-09-01 16:25] LABS: Partial Thromboplastin Time 29.7 Sec. (24.2-36.6)
--- NOTE | 2020-09-01 17:06 | Gastroenterology Progress Note ---
Assessment and Plan oropharyngeal dysphagia - will plan for egd/peg tube placement tomorrow. discussed with pt's sister (Beka at [phone]) and consents for pt to have peg tube placed. hematochezia - resolved, H/H stable Subjective Date of service: 09/01/20 Principal diagnosis: Acute encephalopathy Interval history: no further signs of bleeding; remains on tpn, gi consulted for peg tube evaluation Objective - Constitutional Vitals: Temp Pulse Resp BP Pulse Ox 97.9 F 72 19 134/53 100 09/01/20 11:01 09/01/20 11:01 09/01/20 11:01 09/01/20 11:09/01/20 11:01 General appearance: no acute distress - Respiratory Respiratory effort: normal Respiratory: bilateral: CTA - Gastrointestinal General gastrointestinal: Present: soft, non-tender - Neurologic Neurological: disoriented - Labs CBC & Chem 7: 09/01/20 Unknown 09/01/20 05:57 Labs: Laboratory Results - last 24 hr 08/31/20 09/01/20 09/01/20 23:04 05:48 05:57 Plt Count PT INR APTT Sodium 141 Potassium 3.7 Chloride 104.5 Carbon Dioxide 30 Anion Gap 10 BUN 25 H Creatinine 0.4 L Estimated GFR > 60 BUN/Creatinine Ratio 63 Glucose 281 H POC Glucose 171 H 222 H Calcium 7.8 L Phosphorus 2.90 Magnesium 2.10 09/01/20 09/01/20 09/01/20 10:59 Unknown Unknown Plt Count 124 L PT 13.1 INR 1.01 APTT 29.7 Sodium Potassium Chloride Carbon Dioxide Anion Gap BUN Creatinine Estimated GFR BUN/Creatinine Ratio Glucose POC Glucose 221 H Calcium Phosphorus Magnesium
[2020-09-01] MEDS ORDERED: TOTAL PARENTERAL NUTRITION 2,016 ML IV SCH (20:00)
[2020-09-02] MEDS: INSULIN LISPRO 100 UNIT/ML VIAL 3 mL SUB-Q SCH ×3 (04:39→18:36)
[2020-09-02] MEDS: LEVOTHYROXINE 100 MCG INJ IV SCH (05:48)
[2020-09-02 06:11] LABS: Blood Urea Nitrogen 22 mg/dL (7-17); Calcium 8.3 mg/dL (8.4-10.2); Hemolysis Index 6
[2020-09-02 06:15] LABS: BUN/Creatinine Ratio 73
--- NOTE | 2020-09-02 09:34 | Progress Note ---
Assessment and Plan Altered mental status brain MRI reports extensive skull base meningioma Covid 19 infection Paroxysmal atrial fibrillation rate control has been optimal without use of significant AV yoan blocking therapy, suggesting underlying conduction system disease. Rectal bleeding s/p 1 unit PRBC transfusion Advanced dementia Further use of long-term anticoagulation will not be recommended at this time, in the setting of the recent GI bleed and resultant severe anemia. Continue conservative cardiac management. Subjective Date of service: 09/02/20 Principal diagnosis: Acute encephalopathy Interval history: No interval cardiac changes. Stable sinus rhythm on telemetry. Objective Vital Signs Temp Pulse Resp BP Pulse Ox 09/02/20 04:58 97.9 F 75 20 159/62 100 09/01/20 22:31 97.5 F L 18 147/52 09/01/20 18:10 98.0 F 67 19 140/68 99 09/01/20 11:01 97.9 F 72 19 134/53 100 - Physical Examination Narrative exam: Deferred due to isolation protocol. Cardiac: Positive: Reg Rate and Rhythm Neuro: Positive: Weakness Abdomen: Positive: Soft Skin: Positive: Clear Extremities: Absent: edema - Labs and Meds Coagulation 09/01/20 Range/Units Unknown PT 13.1 (12.2-14.9) Sec. INR 1.01 (0.87-1.13) APTT 29.7 (24.2-36.6) Sec. CBC 09/01/20 Range/Units Unknown Plt Count 124 L (140-440) K/mm3 Comprehensive Metabolic Panel 09/02/20 Range/Units 05:30 Sodium 138 (137-145) mmol/L Potassium 3.9 (3.6-5.0) mmol/L Chloride 100.4 (98-107) mmol/L Carbon Dioxide 31 H (22-30) mmol/L BUN 22 H (7-17) mg/dL Creatinine 0.3 L (0.6-1.2) mg/dL Glucose 307 H (65-100) mg/dL Calcium 8.3 L (8.4-10.2) mg/dL - Imaging and Cardiology EKG: report reviewed
[2020-09-02] MEDS: levETIRAcetam 750 MG in DEXTROSE 5% IN WATER 100 ML IV SCH ×2 (10:48→23:00)
[2020-09-02] MEDS: PANTOPRAZOLE 40 MG INJ IV SCH ×2 (10:55→23:00)
[2020-09-02] MEDS: HYDROCORTISONE SOD SUCC 100 MG/2 ML VIAL IV SCH ×2 (10:55→23:00)
--- NOTE | 2020-09-02 10:58 | Progress Note ---
Assessment and Plan Assessment and plan: Assessment and plan: Acute toxic metabolic encephalopathy: Still persists. Completed antibiotics for UTI. Will get LP to rule out encephalitis GI bleed/hematochezia. Nurse noted bloody stool on 08/26-08/27. Plan for colonoscopy as per GI UTI: Urine and blood cultures negative. Continue cefepime per ID recommendation Sepsis: Etiology secondary to above. Acute hypoxic respiratory failure: Continue oxygen supplementation. 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 D-dimer noted to be 2409.7 and thus empirically started on therapeutic dose anticoagulation. Anticoagulation discontinued as patient's started having drop in hemoglobin. PAWAN: Renally dose medications. 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 Patient had brain irradiation for endocrine tumor. No baseline MRI to compare with. Given altered mental status, will consult neurosurgery for further evaluation - Neurosurgery recs no intervention. Poor intake - On TPN as NG tube could not be placed. PEG placement today as per GI 08/24/2020. Patient still mildly confused. However, I suspect patient has underlying Alzheimer's dementia and this is her baseline. I discussed plan of care and altered mentation with sister at [phone]. Patient will need DME of hospital bed and oxygen for discharge home. Await physical therapy recommendations. 08/25/2020. Patient still lethargic and confused. Patient receiving hyd rocortisone 50 mg IV twice daily for adrenal insufficiency. Check B12, folate and ammonia levels. Neurology consultation pending. Continue supplemental oxygen to maintain sats greater than 92%. 08/26/2020. Encephalopathy likely secondary to toxic metabolic causes in the setting of leukocytosis, improving uremia, renal insufficiency, covid-19, underlying uti. Check CT head without contrast and EEG per neurology recommendations. However may need csf evaluation if brain imaging and eeg are unremarkable and pt continues to remain encephalopathic. Follow-up cortisol levels and T3-T4. 08/27/2020. Patient remains lethargic and confused. Encephalopathy is persistent and likely secondary to toxic metabolic causes from sepsis, renal insufficiency/uremia, COVID-[address] scan of the head found to be negative. Await EEG. Consider CSF evaluation if EEG unremarkable. Consult GI for further evaluation of hematochezia/GI bleed. Continue Protonix 40 mg IV twice daily. Transfuse for hemoglobin less than 7. Continue to monitor serial CBC. Lovenox discontinued which was empirically started for elevated D-dimer. Patient does have a history of chronic steroids for Gwinnett's disease. Decrease IV hydrocortisone. Follow-up cortisol levels and T3-T4. I updated the sister and family at [phone]. 08/28/2020. Follow-up EEG per neurology. GI reports if signs of hemodynamic changes, we will proceed with stat bleeding scan. Hemoglobin has dropped to 6.8. Type and cross and transfuse 2 units. Continue to hold anticoagulation. Continue Protonix 40 mg IV twice daily. Nursing reports inability to place NG tube. Place PICC line and start TPN. Dietitian consulted. ? NG tube placement under fluoroscopy. Patient may need PEG tube placement. 08/29/2020. Patient is s/p 3 units PRBCs. Hemoglobin has stabilized to 11.5. Continue to trend and follow serial H/H. Patient remains hemodynamically stable. If patient has a change, we will proceed with stat bleeding scan. GI following. Continue Protonix 40 mg IV twice daily. Continue to hold anticoagulation. Nursing reports inability to place NG tube. PICC line placed to initiate TPN. Dietitian consulted. ? NG tube placement under fluoroscopy. Patient may need PEG tube placement. 08/30/2020. Hemoglobin remained stable. Patient is on TPN and will not be discharged on TPN. NG tube could not be placed as per RN.. Awaiting EEG to rule out any seizures. If no etiology found, patient will benefit from a PEG placement as she has advanced dementia. Continue to hold anticoagulation due to recent GI bleed. GI to reevaluate for PEG placement. 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 Not clear if this is baseline. Need to retrieve her records from previous hospitalization. Neurosurgery consulted for evaluation. 09/01/2020. She is remains confused. Neurology evaluation appreciated. No intervention for brain mass. She is on hydrocortisone for hypopituitary function. Will adjust based on cortisol levels. She will need to have PEG placement for feeds ultimately as she will not be on TPN for a long time. Will reconsult GI for NG tube placement. 09/02. Plan for PEG placement today. She is awake and alert to person only. Vitals stable. History Interval history: No acute events noted overnight. Awake today Plan for PEG placement today Hospitalist Physical - Physical exam Narrative exam: VITAL SIGNS: Reviewed. GENERAL: Awake HEAD: No signs of head trauma. EYES: Pupils are equal. Extraocular motions intact. MOUTH: Oropharynx is normal. NECK: No adenopathy, no JVD. CHEST: Chest with diminished breath sounds bilaterally. No wheezes, rales, or rhonchi. CARDIAC: normal S1 and S2, without murmurs, gallops, or rubs. ABDOMEN: Soft, non tender and non distended. No rebound or guarding, and no masses palpated. Bowel Sounds normal. MUSCULOSKELETAL: No edema NEUROLOGIC EXAM: Awake SKIN: No obvious lesions - Constitutional Vitals: Temp Pulse Resp BP Pulse Ox 97.9 F 75 20 159/62 100 09/02/20 04:58 09/02/20 04:58 09/02/20 04:58 09/02/20 04:58 09/02/20 04:58 HEART Score - HEART Score Troponin: Troponin T 0.075 ng/mL (0.00-0.029) H 08/18/20 18:25 Troponin: 1-3x normal limit - Critical Actions Critical Actions: 4-6 pts:12-16.6% risk of adverse cardiac event. Should be admitted Results - Labs CBC & Chem 7: 09/01/20 Unknown 09/02/20 05:30 Labs: Laboratory Last Values WBC 17.3 K/mm3 (4.5-11.0) H 08/31/20 06:20 RBC 3.76 M/mm3 (3.65-5.03) 08/31/20 06:20 Hgb 10.8 gm/dl (10.1-14.3) 08/31/20 06:20 Hct 32.7 % (30.3-42.9) 08/31/20 06:20 MCV 87 fl (79-97) 08/31/20 06:20 MCH 29 pg (28-32) 08/31/20 06:20 MCHC 33 % (30-34) 08/31/20 06:20 RDW 15.6 % (13.2-15.2) H 08/31/20 06:20 Plt Count 124 K/mm3 (140-440) L 09/01/20 Unknown Lymph % (Auto) 9.5 % (13.4-35.0) L 08/30/20 05:35 [place] % (Auto) 4.8 % (0.0-7.3) 08/30/20 05:35 Eos % (Auto) 0.1 % (0.0-4.3) 08/30/20 05:35 Baso % (Auto) 0.1 % (0.0-1.8) 08/30/20 05:35 Lymph # (Auto) 2.1 K/mm3 (1.2-5.4) 08/30/20 05:35 [place] # (Auto) 1.0 K/mm3 (0.0-0.8) H 08/30/20 05:35 Eos # (Auto) 0.0 K/mm3 (0.0-0.4) 08/30/20 05:35 Baso # (Auto) 0.0 K/mm3 (0.0-0.1) 08/30/20 05:35 Add Manual Diff Complete 08/31/20 06:20 Total Counted 100 08/31/20 06:20 Seg Neutrophils % 85.5 % (40.0-70.0) H 08/30/20 05:35 Seg Neuts % (Manual) 87.0 % (40.0-70.0) H 08/31/20 06:20 Band Neutrophils % 1.0 % 08/31/20 06:20 Lymphocytes % (Manual) 5.0 % (13.4-35.0) L 08/31/20 06:20 Reactive Lymphs % (Man) 1.0 % 08/28/20 10:07 Monocytes % (Manual) 5.0 % (0.0-7.3) 08/31/20 06:20 Metamyelocytes % 2.0 % 08/31/20 06:20 Nucleated RBC % Not Reportable 08/31/20 06:20 Seg Neutrophils # 18.7 K/mm3 (1.8-7.7) H 08/30/20 05:35 Seg Neutrophils # Man 15.1 K/mm3 (1.8-7.7) H 08/31/20 06:20 Band Neutrophils # 0.2 K/mm3 08/31/20 06:20 Lymphocytes # (Manual) 0.9 K/mm3 (1.2-5.4) L 08/31/20 06:20 Abs React Lymphs (Man) 0.0 K/mm3 08/31/20 06:20 Monocytes # (Manual) 0.9 K/mm3 (0.0-0.8) H 08/31/20 06:20 Eosinophils # (Manual) 0.0 K/mm3 (0.0-0.4) 08/31/20 06:20 Basophils # (Manual) 0.0 K/mm3 (0.0-0.1) 08/31/20 06:20 Metamyelocytes # 0.3 K/mm3 08/31/20 06:20 Myelocytes # 0.0 K/mm3 08/31/20 06:20 Promyelocytes # 0.0 K/mm3 08/31/20 06:20 Blast Cells # 0.0 K/mm3 08/31/20 06:20 WBC Morphology Not Reportable 08/31/20 06:20 Hypersegmented Neuts Not Reportable 08/31/20 06:20 Hyposegmented Neuts Not Reportable 08/31/20 06:20 Hypogranular Neuts Not Reportable 08/31/20 06:20 Smudge Cells Not Reportable 08/31/20 06:20 Toxic Granulation Not Reportable 08/31/20 06:20 Toxic Vacuolation Not Reportable 08/31/20 06:20 Dohle Bodies Not Reportable 08/31/20 06:20 Pelger-Huet Anomaly Not Reportable 08/31/20 06:20 Marie Rods Not Reportable 08/31/20 06:20 Platelet Estimate Consistent w auto 08/31/20 06:20 Clumped Platelets Not Reportable 08/31/20 06:20 Plt Clumps, EDTA Not Reportable 08/31/20 06:20 Large Platelets Not Reportable 08/31/20 06:20 Giant Platelets Not Reportable 08/31/20 06:20 Platelet Satelliting Not Reportable 08/31/20 06:20 Plt Morphology Comment Not Reportable 08/31/20 06:20 RBC Morphology Not Reportable 08/31/20 06:20 Dimorphic RBCs Not Reportable 08/31/20 06:20 Polychromasia Not Reportable 08/31/20 06:20 Hypochromasia Not Reportable 08/31/20 06:20 Poikilocytosis Not Reportable 08/31/20 06:20 Anisocytosis 1+ 08/31/20 06:20 Microcytosis Not Reportable 08/31/20 06:20 Macrocytosis Not Reportable 08/31/20 06:20 Spherocytes Not Reportable 08/31/20 06:20 Pappenheimer Bodies Not Reportable 08/31/20 06:20 Sickle Cells Not Reportable 08/31/20 06:20 Target Cells Not Reportable 08/31/20 06:20 Tear Drop Cells Not Reportable 08/31/20 06:20 Ovalocytes Not Reportable 08/31/20 06:20 Helmet Cells Not Reportable 08/31/20 06:20 [place] Bodies Not Reportable 08/31/20 06:20 [place] Rings Not Reportable 08/31/20 06:20 [place] Cells Not Reportable 08/31/20 06:20 Bite Cells Not Reportable 08/31/20 06:20 Crenated Cell Not Reportable 08/31/20 06:20 Elliptocytes Not Reportable 08/31/20 06:20 Acanthocytes (Spur) Not Reportable 08/31/20 06:20 Rouleaux Not Reportable 08/31/20 06:20 Hemoglobin C Crystals Not Reportable 08/31/20 06:20 Schistocytes Not Reportable 08/31/20 06:20 Malaria parasites Not Reportable 08/31/20 06:20 [place] Bodies Not Reportable 08/31/20 06:20 Hem Pathologist Commnt No 08/31/20 06:20 PT 13.1 Sec. (12.2-14.9) 09/01/20 Unknown INR 1.01 (0.87-1.13) 09/01/20 Unknown APTT 29.7 Sec. (24.2-36.6) 09/01/20 Unknown D-Dimer 2409.74 ng/mlDDU (0-234) H 08/18/20 Unknown Sodium 138 mmol/L (137-145) 09/02/20 05:30 Potassium 3.9 mmol/L (3.6-5.0) 09/02/20 05:30 Chloride 100.4 mmol/L (98-107) 09/02/20 05:30 Carbon Dioxide 31 mmol/L (22-30) H 09/02/20 05:30 Anion Gap 11 mmol/L 09/02/20 05:30 BUN 22 mg/dL (7-17) H 09/02/20 05:30 Creatinine 0.3 mg/dL (0.6-1.2) L 09/02/20 05:30 Estimated GFR > 60 ml/min 09/02/20 05:30 BUN/Creatinine Ratio 73 % 09/02/20 05:30 Glucose 307 mg/dL (65-100) H 09/02/20 05:30 POC Glucose 242 mg/dL (70-105) H 09/02/20 10:12 Lactic Acid 1.00 mmol/L (0.7-2.0) 08/18/20 18:25 Calcium 8.3 mg/dL (8.4-10.2) L 09/02/20 05:30 Phosphorus 3.40 mg/dL (2.5-4.5) 09/02/20 05:30 Magnesium 2.10 mg/dL (1.7-2.3) 09/02/20 05:30 Ferritin 1950.0 ng/mL (10.0-200.0) H 08/18/20 15:35 Total Bilirubin 0.60 mg/dL (0.1-1.2) 08/29/20 05:43 AST 9 units/L (5-40) 08/29/20 05:43 ALT 9 units/L (7-56) 08/29/20 05:43 Alkaline Phosphatase 47 units/L (35-129) 08/29/20 05:43 Ammonia 32.0 umol/L (25-60) 08/25/20 09:06 Lactate Dehydrogenase 228 units/L (91-180) H 08/18/20 15:35 Total Creatine Kinase 164 units/L (30-135) H 08/22/20 19:44 Troponin T 0.075 ng/mL (0.00-0.029) H 08/18/20 18:25 C-Reactive Protein 35.60 mg/dL (0.00-1.30) H 08/18/20 15:35 Total Protein 4.6 g/dL (6.3-8.2) L 08/29/20 05:43 Albumin 2.4 g/dL (3.9-5) L 08/29/20 05:43 Albumin/Globulin Ratio 1.1 % 08/29/20 05:43 Triglycerides 70 mg/dL (2-149) 08/31/20 06:20 Cholesterol 79 mg/dL (50-199) 08/18/20 18:25 LDL Cholesterol Direct 42 mg/dL (50-130) L 08/18/20 18:25 HDL Cholesterol 23 mg/dL (40-59) L 08/18/20 18:25 Cholesterol/HDL Ratio 3.43 % 08/18/20 18:25 Vitamin B12 721.0 pg/mL (211-911) 08/25/20 09:06 Folate 8.34 ng/mL (7.3-26.0) 08/25/20 09:06 Procalcitonin 4.00 ng/mL (<0.15) 08/18/20 15:35 TSH 0.056 mlU/mL (0.270-4.200) L 08/24/20 17:02 Free T4 1.59 ng/dL (0.76-1.46) H 08/26/20 10:22 Free T3 Index 1.2 pg/mL (2.3-4.2) L 08/26/20 10:22 Total Cortisol 60.0 mcg/dL () 08/24/20 17:02 Urine Color Jacqueline (Yellow) 08/18/20 Unknown Urine Turbidity Hazy (Clear) 08/18/20 Unknown Urine pH 5.0 (5.0-7.0) 08/18/20 Unknown Ur Specific [place] 1.020 (1.003-1.030) 08/18/20 Unknown Urine Protein 30 mg/dl mg/dL (Negative) 08/18/20 Unknown Urine Glucose (UA) 50 mg/dL (Negative) 08/18/20 Unknown Urine Ketones Neg mg/dL (Negative) 08/18/20 Unknown Urine Blood Neg (Negative) 08/18/20 Unknown Urine Nitrite Neg (Negative) 08/18/20 Unknown Urine Bilirubin Neg (Negative) 08/18/20 Unknown Urine Urobilinogen 4.0 mg/dL (<2.0) 08/18/20 Unknown Ur Leukocyte Esterase Tr (Negative) 08/18/20 Unknown Urine WBC (Auto) 41.0 /HPF (0.0-6.0) H 08/18/20 Unknown Urine RBC (Auto) 4.0 /HPF (0.0-6.0) 08/18/20 Unknown U Epithel Cells (Auto) 1.0 /HPF (0-13.0) 08/18/20 Unknown Urine Mucus 3+ /HPF 08/18/20 Unknown Random Vancomycin 9.8 ug/mL (0-40.0) 08/19/20 19:02 Coronavirus (PCR) Positive (Negative) A 08/24/20 Unknown Blood Type O POSITIVE 08/27/20 20:44 Antibody Screen Negative 08/27/20 20:44 Crossmatch See Detail 08/27/20 20:44 [place]/IV: Voiding Method Indwelling Catheter IV Catheter Type [Left Triple Lumen Cath Internal Jugular] IV Catheter Type [Left] CVL Active Medications - Current Medications Current Medications: Generic Name Dose Route Start Last Admin Trade Name Freq PRN Reason Stop Dose Admin Lipase/Protease/Amylase 1 each 08/25/20 16:57 Lipase 10,500/Protease 25,000/Amylase 43,750 (Units) Dr Fernandez FEEDTUBE PRN PRN For Clogged Feeding Tube Atropine Sulfate 1 mg 08/23/20 16:56 Atropine 1 Mg/Ml Vial IV PRN PRN Bradycardia Clonidine HCl 0.2 mg 08/31/20 22:00 08/31/20 23:35 Clonidine Tts 0.2 Mg/24 Hr Patch TD 0.2 mg We BARBARA Administration Hydralazine HCl 5 mg 08/31/20 21:22 08/31/20 21:34 Hydralazine 20 Mg/1 Ml Inj IV 5 mg Q4H PRN Administration Blood Pressure Hydrocortisone Sodium Succinate 10 mg 08/27/20 10:07 09/01/20 21:10 Hydrocortisone Sod Succ 100 Mg/2 Ml Vial IV 10 mg Q12HR BARBARA Administration Levetiracetam 750 mg/ Dextrose 107.5 mls @ 400 mls/hr 08/24/20 12:00 09/02/20 10:48 IV 400 mls/hr Q12HR BARBARA Administration Amino Acids/Electrolytes/Dextrose 2,016 mls @ 84 mls/hr 09/01/20 20:00 09/01/20 20:07 Tpn Adult IV 09/02/20 19:59 84 mls/hr DAILY@[email or web address] [facility] Administration Protocol Amino Acids/Electrolytes/Dextrose 2,016 mls @ 84 mls/hr 09/02/20 20:00 Tpn Adult IV 09/03/20 19:59 DAILY@1999 [facility] Protocol Insulin Human Lispro 0 unit 09/01/20 10:00 09/02/20 10:47 Insulin Lispro 100 Unit/Ml Vial 3 Ml SUB-Q 2 unit Q6H [facility] Administration Protocol Levothyroxine Sodium 25 mcg 08/24/20 13:00 09/02/20 05:48 Levothyroxine 100 Mcg Inj IV 25 mcg DAILY@0600 BARBARA Administration Pantoprazole Sodium 40 mg 08/26/20 22:00 09/01/20 21:10 Pantoprazole 40 Mg Inj IV 40 mg BID BARBARA Administration Simple Syrup 15 ml 08/25/20 15:57 Simple Syrup 15 Ml FEEDTUBE PRN PRN Hypoglycemia Simple Syrup 30 ml 08/25/20 15:57 Simple Syrup 15 Ml FEEDTUBE PRN PRN Hypoglycemia Sodium Bicarbonate 325 mg 08/25/20 15:57 Sodium Bicarbonate 325 Mg Tab FEEDTUBE PRN PRN For Clogged Feeding Tube Nutrition/Malnutrition Assess - Dietary Evaluation Nutrition/Malnutrition Findings: Nutrition Notes Start: 08/23/20 10:57 Freq: Status: Active Protocol: Document 09/01/20 10:59 AB (Rec: 09/01/20 11:56 AB [id number]) Co-Sign 09/01/20 10:59 Nutrition Notes Initial or Follow up Reassessment Current Diagnosis Acute Kidney Injury,Diabetes, Sepsis Other Pertinent Diagnosis Encephalopathy, COVID-19 (+), GIB, UTI Current Diet TPN at 84 ml/hr Labs/Tests BUN 25 Cr 0.4 Ca 7.8 BG 281 Pertinent Medications Humalog Height 5 ft 5 in Weight 74.4 kg [place] Body Weight (kg) 56.81 BMI 27.3 Weight Status Appropriate Subjective/Other Information F/U for TPN day 4. Still awaiting EEG. Per MD report, consulted GI for NG placement. Pt tolerating TPN, per RN. Percent of energy/protein needs met: 100%/81% Burn Absent Trauma Absent GI Symptoms None Current % PO Negligible Minimum of two criteria No Energy Intake (severe) < or equal to 50% Estimated Energy Requirement > or equal to 5 days #2 Nutrition Diagnosis Increased nutrient needs ( specify in comment below) Comments: Protein Etiology Wound healing As Evidenced by Signs and Symptoms Stage 3 pressure ulcer on sacrum #1 Nutrition Diagnosis Inadequate oral intake Diagnosis Progress(for reassessment Continues documentation) Is patient on ventilator? No Is Patient Ambulatory and/or Out of Bed No REE-([facility]-confined to bed) [phone] Calculation Used for Recommendations [facility] Additional Notes Pro needs 1.25-1.5 g/k- 111 g/day Fluid needs 1ml/kcal Nutrition Intervention Nutrition Support: TPN (dextrose 13.9%) at 84 ml/ hr. Osmolality: 1276 MTE Na 110 mEq. K 80 mEq, Phos 32 mmol Kcal 1,252 Protein (gm) 75 Carbohydrates (gm) 280 Fat (gm) 0 Fluid (mL) 2,016 Goal #1 PN to meet nutrient needs as best possible Anticipated Discharge Needs: Unable to determine at this time Follow-Up By: 09/02/20 Additional Comments Labs in am: BMP, Mg, Phos
[2020-09-02] MEDS ORDERED: LIDOCAINE MPF (2%) 20 MG/1 ML VIAL 5 ML ONE (14:00)
[2020-09-02] MEDS ORDERED: propofoL 200 MG/20 ML VIAL IV ONE (14:19)
--- NOTE | 2020-09-02 14:53 | Operative Report ---
Operative Report Operative Report: Esophagogastroduodenoscopy Procedure Note with biopsies Date of procedure: 09/02/2020 Endoscopist: Rufino Osman Pre-op diagnosis/indication: Oropharyngeal dysphagia Post-op diagnosis: Gastric ulcer, gastritis MEDICATIONS: MAC COMPLICATIONS: No immediate complications ESTIMATED BLOOD LOSS: Minimal DESCRIPTION OF PROCEDURE: After consent was obtained from the patient's daughter, the patient was placed in the supine position. The olympus endoscope was inserted into the patient's mouth under direct vision and advanced to the 2nd portion of the duodenum without difficulty. The patient tolerated the procedure well. The views of the mucosa were good. The patient's vital signs were monitored continuously throughout the procedure. FINDINGS: The esophagus appeared normal. There was an ~1.5 to 2 cm linear and slightly cratered ulcer in the antrum of the stomach. No high risk bleeding stigmata. Biopsies were obtained from the edge of the ulcer. There was moderately inflamed/erythematous mucosa in the distal antrum/pylorus. Biopsies were obtained. The duodenum appeared normal. Unable to identify safe window for peg tube placement using finger indentation and transillumination. IMPRESSION: 1. Gastric ulcer (linear, slightly cratered) without high risk bleeding stigmata . Biopsied. 2. Inflamed/erythematous mucosa in distal antrum/pylorus. Biopsied. RECOMMENDATIONS: -follow-up pathology -PPI BID dosing -pt will need other means for peg tube placement (IR vs surgery)
[2020-09-02] MEDS ORDERED: ceFAZolin/Water 2 GM/20 ML 2 GM/20 ML SYRINGE IV NR (15:00)
--- NOTE | 2020-09-02 15:08 | Anesthesia Consultation ---
Anesthesia Consult and Med Hx Date of service: 09/02/20 - Airway Anesthetic Teeth Evaluation: Poor Mental/Hyoid Distance: Adequate Intubation Access Assessment: Possibly Difficult - Pulmonary Exam CTA: No - Cardiac Exam Cardiac Exam: RRR - Pre-Operative Health Status ASA Pre-Surgery Classification: ASA4 Proposed Anesthetic Plan: MAC - Pulmonary Hx Respiratory Symptoms: Yes (2-3L NC while inpatient, unclear if on O2 as outpatient) Hx Pneumonia: Yes (COVID+ 07/2020) - Cardiovascular System Hx Hypertension: Yes Hx Cardia Arrhythmia: Yes (paroxysmal A-fib) Hx Pacemaker: No Hx Internal Defibrillator: No - Central Nervous System 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
--- NOTE | 2020-09-02 15:08 | Anesthesia Day of Surgery ---
Anesthesia Day of Surgery - Day of Surgery Patient Examined: Yes Patient H&P Reviewed: Yes Patient is NPO: Yes
[2020-09-02] MEDS ORDERED: FAT EMULSIONS 20% 250 ML IV SCH (20:00)
[2020-09-02] MEDS ORDERED: TOTAL PARENTERAL NUTRITION 2,016 ML IV SCH (20:00)
--- NOTE | 2020-09-03 00:36 | Hem/Onc Consultation ---
History of Present Illness - Reason for Consult Consult date: 09/01/20 - History of Present Illness oncology consult televisit via tsqrd 80yo disabled woman with h/o brain tumor-->radiation-->[place]'s disease, dementia seizure edisorder, recent covid infection, adm for confusion, recent hosp at [place] 08/05/2020-->SNF-->[facility] found to have brain tumor, presumed to be meningioma has had GI tract bleeding-->needed RBC transfusion has been on TPN, considering PEG DATA REVIEWED BELOW Brain MRI c/w skull base meningioma, JUAN DAVID compression IMPRESSION dementia, impaired functional status brain tumor, abnormal MRI, mention of prior brain radiation, details unavailable not a candidate for antitumor therapy now recent rectal bleeding, cause unknown, s/p RBC transfusion evidence of Covid19 infection, but no signif respiratory symptoms not sure whether PG tube will improve her quality of life REC: end of life discussion, consider transition to hospice Vital Signs Temp Pulse Resp BP Pulse Ox 98.0 F 57 L 19 167/72 100 09/02/20 18:18 09/02/20 18:18 09/02/20 18:18 09/02/20 18:18 09/02/20 18:18 Temperature -Last 24 Hours Temperature 98.0 F Temperature 98.7 F Temperature 97.6 F Temperature 97.6 F Temperature 98.0 F Temperature 97.9 F Active Medications Lipase/Protease/Amylase (Lipase 10,500/Protease 25,000/Amylase 43,750 (Units) Dr Fernandez) 1 each FEEDTUBE PRN PRN PRN Reason: For Clogged Feeding Tube Atropine Sulfate (Atropine 1 Mg/Ml Vial) 1 mg IV PRN PRN PRN Reason: Bradycardia Clonidine HCl (Clonidine Tts 0.2 Mg/24 Hr Patch) 0.2 mg TD We [facility] Last Admin: 08/31/20 23:35 Dose: 0.2 mg Documented by: Hydralazine HCl (Hydralazine 20 Mg/1 Ml Inj) 5 mg IV Q4H PRN PRN Reason: Blood Pressure Last Admin: 08/31/20 21:34 Dose: 5 mg Documented by: Hydrocortisone Sodium Succinate (Hydrocortisone Sod Succ 100 Mg/2 Ml Vial) 10 mg IV Q12HR [facility] Last Admin: 09/02/20 10:55 Dose: 10 mg Documented by: Levetiracetam 750 mg/ Dextrose 107.5 mls @ 400 mls/hr IV Q12HR [facility] Last Infusion: 09/02/20 11:05 Dose: Infused Documented by: Laboratory Last Values WBC 17.3 K/mm3 (4.5-11.0) H 08/31/20 06:20 Hgb 10.8 gm/dl (10.1-14.3) 08/31/20 06:20 Hct 32.7 % (30.3-42.9) 08/31/20 06:20 Plt Count 124 K/mm3 (140-440) L 09/01/20 Unknown Creatinine 0.3 mg/dL (0.6-1.2) L 09/02/20 05:30 Coronavirus (PCR) Positive (Negative) A 08/24/20 Unknown Crossmatch See Detail 08/27/20 20:44 . Past History Past Medical History: diabetes, hyperthyroidism, other (Pituitary insufficiency, secondary renal insufficiency) Past Surgical History: No surgical history Social history: full code, other (Lives in [facility] facility) Family history: hypertension Medications and Allergies Allergies Allergy/AdvReac Type Severity Reaction Status Date / Time No Known Allergies Allergy Unverified 08/18/20 14:45 Home Medications Medication Instructions Recorded Confirmed Last Taken Type Amlodipine Besylate [Norvasc] 5 mg PO DAILY 08/18/20 08/18/20 Unknown History AtorvaSTATin [Lipitor] 20 mg PO QHS 08/18/20 08/18/20 Unknown History Cholecalciferol (Vitamin D3) 2,000 unit PO QDAY 08/18/20 08/18/20 Unknown History [Vitamin D3 2,000 UNIT CAP] Cyanocobalamin [Vitamin B-12] 1,000 mcg PO DAILY 08/18/20 08/18/20 Unknown History Folic Acid 1 mg PO QDAY 08/18/20 08/18/20 Unknown History Hydrocortisone 5 mg PO QHS 08/18/20 08/18/20 Unknown History Hydrocortisone 10 mg PO QAM 08/18/20 08/18/20 Unknown History Levothyroxine [Synthroid] 50 mcg PO QAM 08/18/20 08/18/20 Unknown History Ramipril 10 mg PO DAILY 08/18/20 08/18/20 Unknown History levETIRAcetam [Keppra TAB] 750 mg PO BID 08/18/20 08/18/20 Unknown History Active Meds: Active Medications Lipase/Protease/Amylase (Lipase 10,500/Protease 25,000/Amylase 43,750 (Units) Dr Fernandez) 1 each FEEDTUBE PRN PRN PRN Reason: For Clogged Feeding Tube Atropine Sulfate (Atropine 1 Mg/Ml Vial) 1 mg IV PRN PRN PRN Reason: Bradycardia Clonidine HCl (Clonidine Tts 0.2 Mg/24 Hr Patch) 0.2 mg TD We [facility] Last Admin: 08/31/20 23:35 Dose: 0.2 mg Documented by: Hydralazine HCl (Hydralazine 20 Mg/1 Ml Inj) 5 mg IV Q4H PRN PRN Reason: Blood Pressure Last Admin: 08/31/20 21:34 Dose: 5 mg Documented by: Hydrocortisone Sodium Succinate (Hydrocortisone Sod Succ 100 Mg/2 Ml Vial) 10 mg IV Q12HR [facility] Last Admin: 09/02/20 10:55 Dose: 10 mg Documented by: Levetiracetam 750 mg/ Dextrose 107.5 mls @ 400 mls/hr IV Q12HR [facility] Last Infusion: 09/02/20 11:05 Dose: Infused Documented by: Amino Acids/Electrolytes/Dextrose (Tpn Adult) 2,016 mls @ 84 mls/hr IV DAILY@1999 [facility]; Protocol Stop: 09/03/20 19:59 Last Admin: 09/02/20 22:22 Dose: 84 mls/hr Documented by: Fat Emulsion Intravenous (Intralipid 20%) 250 mls @ 21 mls/hr IV DAILY@1999 [facility] Stop: 09/03/20 07:59 Last Admin: 09/02/20 22:22 Dose: 21 mls/hr Documented by: Sodium Chloride (Nacl 0.9% 1000 Ml) 1,000 mls @ 50 mls/hr IV DIRECT [facility] Insulin Human Lispro (Insulin Lispro 100 Unit/Ml Vial 3 Ml) 0 unit SUB-Q Q6H [facility]; Protocol Last Admin: 09/02/20 18:36 Dose: 4 unit Documented by: Levothyroxine Sodium (Levothyroxine 100 Mcg Inj) 25 mcg IV DAILY@0600 [facility] Last Admin: 09/02/20 05:48 Dose: 25 mcg Documented by: Pantoprazole Sodium (Pantoprazole 40 Mg Inj) 40 mg IV BID [facility] Last Admin: 09/02/20 10:55 Dose: 40 mg Documented by: Simple Syrup (Simple Syrup 15 Ml) 15 ml FEEDTUBE PRN PRN PRN Reason: Hypoglycemia Simple Syrup (Simple Syrup 15 Ml) 30 ml FEEDTUBE PRN PRN PRN Reason: Hypoglycemia Sodium Bicarbonate (Sodium Bicarbonate 325 Mg Tab) 325 mg FEEDTUBE PRN PRN PRN Reason: For Clogged Feeding Tube Exam - Constitutional Vitals: Last Vital Signs Temp 98.0 F 09/02/20 18:18 Pulse 57 L 09/02/20 18:18 Resp 19 09/02/20 18:18 BP 167/72 09/02/20 18:18 Pulse Ox 100 09/02/20 18:18 Results - Labs lab Results: Laboratory Results - last 24 hr 09/02/20 09/02/20 09/02/20 00:47 05:13 05:30 Sodium 138 Potassium 3.9 Chloride 100.4 Carbon Dioxide 31 H Anion Gap 11 BUN 22 H Creatinine 0.3 L Estimated GFR > 60 BUN/Creatinine Ratio 73 Glucose 307 H POC Glucose 236 H 287 H Calcium 8.3 L Phosphorus 3.40 Magnesium 2.10 09/02/20 09/02/20 09/02/20 10:12 18:17 23:42 Sodium Potassium Chloride Carbon Dioxide Anion Gap BUN Creatinine Estimated GFR BUN/Creatinine Ratio Glucose POC Glucose 242 H 300 H 224 H Calcium Phosphorus Magnesium
[2020-09-03] MEDS: INSULIN LISPRO 100 UNIT/ML VIAL 3 mL SUB-Q SCH ×5 (02:21→22:17)
[2020-09-03] MEDS: LEVOTHYROXINE 100 MCG INJ IV SCH (06:40)
[2020-09-03 06:52] LABS: Blood Urea Nitrogen 23 mg/dL (7-17); Calcium 8.4 mg/dL (8.4-10.2); Hemolysis Index 37
[2020-09-03 06:54] LABS: BUN/Creatinine Ratio 58
--- NOTE | 2020-09-03 09:28 | Progress Note ---
Assessment and Plan Altered mental status brain MRI reports extensive skull base meningioma Covid 19 infection Paroxysmal atrial fibrillation rate control has been optimal without use of significant AV yoan blocking therapy, suggesting underlying conduction system disease. Rectal bleeding s/p 1 unit PRBC transfusion Endoscopy revealed gastric ulcer. Advanced dementia Further use of long-term anticoagulation will not be recommended at this time, in the setting of the recent GI bleed and resultant severe anemia. Continue conservative cardiac management. Subjective Date of service: 09/03/20 Principal diagnosis: Acute encephalopathy Interval history: Tolerated procedure well. No significant events reported overnight Objective Vital Signs Temp Pulse Resp BP Pulse Ox 09/03/20 03:38 97.6 F 68 20 166/61 97 09/02/20 23:20 97.8 F 71 20 156/63 98 09/02/20 18:18 98.0 F 57 L 19 167/72 100 09/02/20 15:00 67 15 153/94 100 09/02/20 14:51 79 20 174/87 100 09/02/20 14:40 98.7 F 76 15 129/69 100 09/02/20 14:00 97.6 F 65 15 174/73 100 09/02/20 10:13 98.0 F 82 19 175/79 100 - Physical Examination Narrative exam: Patient was not directly examined by me. This was done in view of the infection protocol and to minimize spread. His work-up previous examination current examination previous and prior labs were extensively reviewed. General: No Apparent Distress HEENT: Positive: PERRL Neck: Positive: neck supple Neuro: Positive: Weakness Abdomen: Positive: Soft Skin: Positive: Clear Extremities: Absent: edema - Labs and Meds Comprehensive Metabolic Panel 09/03/20 Range/Units 05:53 Sodium 137 (137-145) mmol/L Potassium 3.8 (3.6-5.0) mmol/L Chloride 98.1 (98-107) mmol/L Carbon Dioxide 26 (22-30) mmol/L BUN 23 H (7-17) mg/dL Creatinine 0.4 L (0.6-1.2) mg/dL Glucose 290 H (65-100) mg/dL Calcium 8.4 (8.4-10.2) mg/dL - Imaging and Cardiology EKG: report reviewed
--- NOTE | 2020-09-03 10:22 | Progress Note ---
Assessment and Plan Assessment and plan: Assessment and plan: Acute toxic metabolic encephalopathy: Still persists. Completed antibiotics for UTI. Will get LP to rule out encephalitis GI bleed/hematochezia. Nurse noted bloody stool on 08/26-08/27. Plan for colonoscopy as per GI UTI: Urine and blood cultures negative. Continue cefepime per ID recommendation Sepsis: Etiology secondary to above. Acute hypoxic respiratory failure: Continue oxygen supplementation. 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 D-dimer noted to be 2409.7 and thus empirically started on therapeutic dose anticoagulation. Anticoagulation discontinued as patient's started having drop in hemoglobin. PAWAN: Renally dose medications. 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 Patient had brain irradiation for endocrine tumor. No baseline MRI to compare with. Given altered mental status, will consult neurosurgery for further evaluation - Neurosurgery recs no intervention. Poor intake - On TPN as NG tube could not be placed. PEG placement today as per GI 08/24/2020. Patient still mildly confused. However, I suspect patient has underlying Alzheimer's dementia and this is her baseline. I discussed plan of care and altered mentation with sister at [phone]. Patient will need DME of hospital bed and oxygen for discharge home. Await physical therapy recommendations. 08/25/2020. Patient still lethargic and confused. Patient receiving hyd rocortisone 50 mg IV twice daily for adrenal insufficiency. Check B12, folate and ammonia levels. Neurology consultation pending. Continue supplemental oxygen to maintain sats greater than 92%. 08/26/2020. Encephalopathy likely secondary to toxic metabolic causes in the setting of leukocytosis, improving uremia, renal insufficiency, covid-19, underlying uti. Check CT head without contrast and EEG per neurology recommendations. However may need csf evaluation if brain imaging and eeg are unremarkable and pt continues to remain encephalopathic. Follow-up cortisol levels and T3-T4. 08/27/2020. Patient remains lethargic and confused. Encephalopathy is persistent and likely secondary to toxic metabolic causes from sepsis, renal insufficiency/uremia, COVID-[address] scan of the head found to be negative. Await EEG. Consider CSF evaluation if EEG unremarkable. Consult GI for further evaluation of hematochezia/GI bleed. Continue Protonix 40 mg IV twice daily. Transfuse for hemoglobin less than 7. Continue to monitor serial CBC. Lovenox discontinued which was empirically started for elevated D-dimer. Patient does have a history of chronic steroids for Irion's disease. Decrease IV hydrocortisone. Follow-up cortisol levels and T3-T4. I updated the sister and family at [phone]. 08/28/2020. Follow-up EEG per neurology. GI reports if signs of hemodynamic changes, we will proceed with stat bleeding scan. Hemoglobin has dropped to 6.8. Type and cross and transfuse 2 units. Continue to hold anticoagulation. Continue Protonix 40 mg IV twice daily. Nursing reports inability to place NG tube. Place PICC line and start TPN. Dietitian consulted. ? NG tube placement under fluoroscopy. Patient may need PEG tube placement. 08/29/2020. Patient is s/p 3 units PRBCs. Hemoglobin has stabilized to 11.5. Continue to trend and follow serial H/H. Patient remains hemodynamically stable. If patient has a change, we will proceed with stat bleeding scan. GI following. Continue Protonix 40 mg IV twice daily. Continue to hold anticoagulation. Nursing reports inability to place NG tube. PICC line placed to initiate TPN. Dietitian consulted. ? NG tube placement under fluoroscopy. Patient may need PEG tube placement. 08/30/2020. Hemoglobin remained stable. Patient is on TPN and will not be discharged on TPN. NG tube could not be placed as per RN.. Awaiting EEG to rule out any seizures. If no etiology found, patient will benefit from a PEG placement as she has advanced dementia. Continue to hold anticoagulation due to recent GI bleed. GI to reevaluate for PEG placement. 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 Not clear if this is baseline. Need to retrieve her records from previous hospitalization. Neurosurgery consulted for evaluation. 09/01/2020. She is remains confused. Neurology evaluation appreciated. No intervention for brain mass. She is on hydrocortisone for hypopituitary function. Will adjust based on cortisol levels. She will need to have PEG placement for feeds ultimately as she will not be on TPN for a long time. Will reconsult GI for NG tube placement. 09/02. Plan for PEG placement today. She is awake and alert to person only. Vitals stable. 09/03. Had EGD which showed gastritis. Patient will need to have a PEG placement by other means-IR or surgery as per GI. Now on PPI twice daily. Biopsy from gastric ulcer sent. She remains on TPN. Plan to discuss PEG placement IR or surgery. Plan for LP as well. History Interval history: No acute events noted overnight. Had EGD yesterday Hospitalist Physical - Constitutional Vitals: Temp Pulse Resp BP Pulse Ox 97.6 F 68 20 166/61 97 09/03/20 03:38 09/03/20 03:38 09/03/20 03:38 09/03/20 03:38 09/03/20 03:38 General appearance: Present: no acute distress, well-nourished, other (Lethargic and confused) HEART Score - HEART Score Troponin: Troponin T 0.075 ng/mL (0.00-0.029) H 08/18/20 18:25 Troponin: 1-3x normal limit - Critical Actions Critical Actions: 4-6 pts:12-16.6% risk of adverse cardiac event. Should be admitted Results - Labs CBC & Chem 7: 09/01/20 Unknown 09/03/20 05:53 Labs: Laboratory Last Values WBC 17.3 K/mm3 (4.5-11.0) H 08/31/20 06:20 RBC 3.76 M/mm3 (3.65-5.03) 08/31/20 06:20 Hgb 10.8 gm/dl (10.1-14.3) 08/31/20 06:20 Hct 32.7 % (30.3-42.9) 08/31/20 06:20 MCV 87 fl (79-97) 08/31/20 06:20 MCH 29 pg (28-32) 08/31/20 06:20 MCHC 33 % (30-34) 08/31/20 06:20 RDW 15.6 % (13.2-15.2) H 08/31/20 06:20 Plt Count 124 K/mm3 (140-440) L 09/01/20 Unknown Lymph % (Auto) 9.5 % (13.4-35.0) L 08/30/20 05:35 [place] % (Auto) 4.8 % (0.0-7.3) 08/30/20 05:35 Eos % (Auto) 0.1 % (0.0-4.3) 08/30/20 05:35 Baso % (Auto) 0.1 % (0.0-1.8) 08/30/20 05:35 Lymph # (Auto) 2.1 K/mm3 (1.2-5.4) 08/30/20 05:35 [place] # (Auto) 1.0 K/mm3 (0.0-0.8) H 08/30/20 05:35 Eos # (Auto) 0.0 K/mm3 (0.0-0.4) 08/30/20 05:35 Baso # (Auto) 0.0 K/mm3 (0.0-0.1) 08/30/20 05:35 Add Manual Diff Complete 08/31/20 06:20 Total Counted 100 08/31/20 06:20 Seg Neutrophils % 85.5 % (40.0-70.0) H 08/30/20 05:35 Seg Neuts % (Manual) 87.0 % (40.0-70.0) H 08/31/20 06:20 Band Neutrophils % 1.0 % 08/31/20 06:20 Lymphocytes % (Manual) 5.0 % (13.4-35.0) L 08/31/20 06:20 Reactive Lymphs % (Man) 1.0 % 08/28/20 10:07 Monocytes % (Manual) 5.0 % (0.0-7.3) 08/31/20 06:20 Metamyelocytes % 2.0 % 08/31/20 06:20 Nucleated RBC % Not Reportable 08/31/20 06:20 Seg Neutrophils # 18.7 K/mm3 (1.8-7.7) H 08/30/20 05:35 Seg Neutrophils # Man 15.1 K/mm3 (1.8-7.7) H 08/31/20 06:20 Band Neutrophils # 0.2 K/mm3 08/31/20 06:20 Lymphocytes # (Manual) 0.9 K/mm3 (1.2-5.4) L 08/31/20 06:20 Abs React Lymphs (Man) 0.0 K/mm3 08/31/20 06:20 Monocytes # (Manual) 0.9 K/mm3 (0.0-0.8) H 08/31/20 06:20 Eosinophils # (Manual) 0.0 K/mm3 (0.0-0.4) 08/31/20 06:20 Basophils # (Manual) 0.0 K/mm3 (0.0-0.1) 08/31/20 06:20 Metamyelocytes # 0.3 K/mm3 08/31/20 06:20 Myelocytes # 0.0 K/mm3 08/31/20 06:20 Promyelocytes # 0.0 K/mm3 08/31/20 06:20 Blast Cells # 0.0 K/mm3 08/31/20 06:20 WBC Morphology Not Reportable 08/31/20 06:20 Hypersegmented Neuts Not Reportable 08/31/20 06:20 Hyposegmented Neuts Not Reportable 08/31/20 06:20 Hypogranular Neuts Not Reportable 08/31/20 06:20 Smudge Cells Not Reportable 08/31/20 06:20 Toxic Granulation Not Reportable 08/31/20 06:20 Toxic Vacuolation Not Reportable 08/31/20 06:20 Dohle Bodies Not Reportable 08/31/20 06:20 Pelger-Huet Anomaly Not Reportable 08/31/20 06:20 Marie Rods Not Reportable 08/31/20 06:20 Platelet Estimate Consistent w auto 08/31/20 06:20 Clumped Platelets Not Reportable 08/31/20 06:20 Plt Clumps, EDTA Not Reportable 08/31/20 06:20 Large Platelets Not Reportable 08/31/20 06:20 Giant Platelets Not Reportable 08/31/20 06:20 Platelet Satelliting Not Reportable 08/31/20 06:20 Plt Morphology Comment Not Reportable 08/31/20 06:20 RBC Morphology Not Reportable 08/31/20 06:20 Dimorphic RBCs Not Reportable 08/31/20 06:20 Polychromasia Not Reportable 08/31/20 06:20 Hypochromasia Not Reportable 08/31/20 06:20 Poikilocytosis Not Reportable 08/31/20 06:20 Anisocytosis 1+ 08/31/20 06:20 Microcytosis Not Reportable 08/31/20 06:20 Macrocytosis Not Reportable 08/31/20 06:20 Spherocytes Not Reportable 08/31/20 06:20 Pappenheimer Bodies Not Reportable 08/31/20 06:20 Sickle Cells Not Reportable 08/31/20 06:20 Target Cells Not Reportable 08/31/20 06:20 Tear Drop Cells Not Reportable 08/31/20 06:20 Ovalocytes Not Reportable 08/31/20 06:20 Helmet Cells Not Reportable 08/31/20 06:20 [place] Bodies Not Reportable 08/31/20 06:20 [place] Rings Not Reportable 08/31/20 06:20 [place] Cells Not Reportable 08/31/20 06:20 Bite Cells Not Reportable 08/31/20 06:20 Crenated Cell Not Reportable 08/31/20 06:20 Elliptocytes Not Reportable 08/31/20 06:20 Acanthocytes (Spur) Not Reportable 08/31/20 06:20 Rouleaux Not Reportable 08/31/20 06:20 Hemoglobin C Crystals Not Reportable 08/31/20 06:20 Schistocytes Not Reportable 08/31/20 06:20 Malaria parasites Not Reportable 08/31/20 06:20 Payam Bodies Not Reportable 08/31/20 06:20 Hem Pathologist Commnt No 08/31/20 06:20 PT 13.1 Sec. (12.2-14.9) 09/01/20 Unknown INR 1.01 (0.87-1.13) 09/01/20 Unknown APTT 29.7 Sec. (24.2-36.6) 09/01/20 Unknown D-Dimer 2409.74 ng/mlDDU (0-234) H 08/18/20 Unknown Sodium 137 mmol/L (137-145) 09/03/20 05:53 Potassium 3.8 mmol/L (3.6-5.0) 09/03/20 05:53 Chloride 98.1 mmol/L (98-107) 09/03/20 05:53 Carbon Dioxide 26 mmol/L (22-30) 09/03/20 05:53 Anion Gap 17 mmol/L 09/03/20 05:53 BUN 23 mg/dL (7-17) H 09/03/20 05:53 Creatinine 0.4 mg/dL (0.6-1.2) L 09/03/20 05:53 Estimated GFR > 60 ml/min 09/03/20 05:53 BUN/Creatinine Ratio 58 % 09/03/20 05:53 Glucose 290 mg/dL (65-100) H 09/03/20 05:53 POC Glucose 281 mg/dL (70-105) H 09/03/20 06:02 Lactic Acid 1.00 mmol/L (0.7-2.0) 08/18/20 18:25 Calcium 8.4 mg/dL (8.4-10.2) 09/03/20 05:53 Phosphorus 3.50 mg/dL (2.5-4.5) 09/03/20 05:53 Magnesium 2.20 mg/dL (1.7-2.3) 09/03/20 05:53 Ferritin 1950.0 ng/mL (10.0-200.0) H 08/18/20 15:35 Total Bilirubin 0.60 mg/dL (0.1-1.2) 08/29/20 05:43 AST 9 units/L (5-40) 08/29/20 05:43 ALT 9 units/L (7-56) 08/29/20 05:43 Alkaline Phosphatase 47 units/L (35-129) 08/29/20 05:43 Ammonia 32.0 umol/L (25-60) 08/25/20 09:06 Lactate Dehydrogenase 228 units/L (91-180) H 08/18/20 15:35 Total Creatine Kinase 164 units/L (30-135) H 08/22/20 19:44 Troponin T 0.075 ng/mL (0.00-0.029) H 08/18/20 18:25 C-Reactive Protein 35.60 mg/dL (0.00-1.30) H 08/18/20 15:35 Total Protein 4.6 g/dL (6.3-8.2) L 08/29/20 05:43 Albumin 2.4 g/dL (3.9-5) L 08/29/20 05:43 Albumin/Globulin Ratio 1.1 % 08/29/20 05:43 Triglycerides 70 mg/dL (2-149) 08/31/20 06:20 Cholesterol 79 mg/dL (50-199) 08/18/20 18:25 LDL Cholesterol Direct 42 mg/dL (50-130) L 08/18/20 18:25 HDL Cholesterol 23 mg/dL (40-59) L 08/18/20 18:25 Cholesterol/HDL Ratio 3.43 % 08/18/20 18:25 Vitamin B12 721.0 pg/mL (211-911) 08/25/20 09:06 Folate 8.34 ng/mL (7.3-26.0) 08/25/20 09:06 Procalcitonin 4.00 ng/mL (<0.15) 08/18/20 15:35 TSH 0.056 mlU/mL (0.270-4.200) L 08/24/20 17:02 Free T4 1.59 ng/dL (0.76-1.46) H 08/26/20 10:22 Free T3 Index 1.2 pg/mL (2.3-4.2) L 08/26/20 10:22 Total Cortisol 60.0 mcg/dL () 08/24/20 17:02 Urine Color Jacqueline (Yellow) 08/18/20 Unknown Urine Turbidity Hazy (Clear) 08/18/20 Unknown Urine pH 5.0 (5.0-7.0) 08/18/20 Unknown Ur Specific [place] 1.020 (1.003-1.030) 08/18/20 Unknown Urine Protein 30 mg/dl mg/dL (Negative) 08/18/20 Unknown Urine Glucose (UA) 50 mg/dL (Negative) 08/18/20 Unknown Urine Ketones Neg mg/dL (Negative) 08/18/20 Unknown Urine Blood Neg (Negative) 08/18/20 Unknown Urine Nitrite Neg (Negative) 08/18/20 Unknown Urine Bilirubin Neg (Negative) 08/18/20 Unknown Urine Urobilinogen 4.0 mg/dL (<2.0) 08/18/20 Unknown Ur Leukocyte Esterase Tr (Negative) 08/18/20 Unknown Urine WBC (Auto) 41.0 /HPF (0.0-6.0) H 08/18/20 Unknown Urine RBC (Auto) 4.0 /HPF (0.0-6.0) 08/18/20 Unknown U Epithel Cells (Auto) 1.0 /HPF (0-13.0) 08/18/20 Unknown Urine Mucus 3+ /HPF 08/18/20 Unknown Random Vancomycin 9.8 ug/mL (0-40.0) 08/19/20 19:02 Coronavirus (PCR) Positive (Negative) A 08/24/20 Unknown Blood Type O POSITIVE 08/27/20 20:44 Antibody Screen Negative 08/27/20 20:44 Crossmatch See Detail 08/27/20 20:44 [place]/IV: Voiding Method Indwelling Catheter IV Catheter Type [Left Triple Lumen Cath Internal Jugular] IV Catheter Type [Left] CVL Active Medications - Current Medications Current Medications: Generic Name Dose Route Start Last Admin Trade Name Freq PRN Reason Stop Dose Admin Lipase/Protease/Amylase 1 each 08/25/20 16:57 Lipase 10,500/Protease 25,000/Amylase 43,750 (Units) Dr Fernandez FEEDTUBE PRN PRN For Clogged Feeding Tube Atropine Sulfate 1 mg 08/23/20 16:56 Atropine 1 Mg/Ml Vial IV PRN PRN Bradycardia Clonidine HCl 0.2 mg 08/31/20 22:00 08/31/20 23:35 Clonidine Tts 0.2 Mg/24 Hr Patch TD 0.2 mg We BARBARA Administration Hydralazine HCl 5 mg 08/31/20 21:22 08/31/20 21:34 Hydralazine 20 Mg/1 Ml Inj IV 5 mg Q4H PRN Administration Blood Pressure Hydrocortisone Sodium Succinate 10 mg 08/27/20 10:07 09/02/20 23:00 Hydrocortisone Sod Succ 100 Mg/2 Ml Vial IV 10 mg Q12HR BARBARA Administration Levetiracetam 750 mg/ Dextrose 107.5 mls @ 400 mls/hr 08/24/20 12:00 09/02/20 23:00 IV 400 mls/hr Q12HR BARBARA Administration Amino Acids/Electrolytes/Dextrose 2,016 mls @ 84 mls/hr 09/02/20 20:00 09/02/20 22:22 Tpn Adult IV 09/03/20 19:59 84 mls/hr DAILY@2000 BARBARA Administration Protocol Sodium Chloride 1,000 mls @ 50 mls/hr 09/02/20 14:30 Nacl 0.9% 1000 Ml IV DIRECT BARBARA Insulin Human Lispro 0 unit 09/01/20 10:00 09/03/20 06:39 Insulin Lispro 100 Unit/Ml Vial 3 Ml SUB-Q 3 unit Q6H BARBARA Administration Protocol Levothyroxine Sodium 25 mcg 08/24/20 13:00 09/03/20 06:40 Levothyroxine 100 Mcg Inj IV 25 mcg DAILY@0600 BARBARA Administration Pantoprazole Sodium 40 mg 08/26/20 22:00 09/02/20 23:00 Pantoprazole 40 Mg Inj IV 40 mg BID BARBARA Administration Simple Syrup 15 ml 08/25/20 15:57 Simple Syrup 15 Ml FEEDTUBE PRN PRN Hypoglycemia Simple Syrup 30 ml 08/25/20 15:57 Simple Syrup 15 Ml FEEDTUBE PRN PRN Hypoglycemia Sodium Bicarbonate 325 mg 08/25/20 15:57 Sodium Bicarbonate 325 Mg Tab FEEDTUBE PRN PRN For Clogged Feeding Tube Nutrition/Malnutrition Assess - Dietary Evaluation Nutrition/Malnutrition Findings: Nutrition Notes Start: 08/23/20 10:57 Freq: Status: Active Protocol: Document 09/02/20 11:53 AB (Rec: 09/02/20 12:08 AB [id number]) Co-Sign 09/02/20 11:53 LP Nutrition Notes Initial or Follow up Reassessment Current Diagnosis Acute Kidney Injury,Diabetes, Sepsis Other Pertinent Diagnosis Encephalopathy, COVID-19 (+), GIB, UTI Current Diet TPN at 84 ml/hr Labs/Tests BG 307 Ca 8.3 Pertinent Medications Humalog Height 5 ft 5 in Weight 74.4 kg [place] Body Weight (kg) 56.81 BMI 27.3 Weight Status Appropriate Subjective/Other Information F/U for TPN day 5. Pt having PEG placement today. Per RN, pt is tolerating TPN. Still waiting for new wt. Spoke with RN about high BG, which she agreed and will give insulin. MD order for write/manage TF. Percent of energy/protein needs met: 86%/100% Burn Absent Trauma Absent GI Symptoms None Current % PO Negligible Minimum of two criteria No Energy Intake (severe) < or equal to 50% Estimated Energy Requirement > or equal to 5 days #2 Nutrition Diagnosis Increased nutrient needs ( specify in comment below) Diagnosis Progress(for reassessment Continues documentation) #1 Nutrition Diagnosis Inadequate oral intake Diagnosis Progress(for reassessment Continues documentation) Is patient on ventilator? No Is Patient Ambulatory and/or Out of Bed No REE-([facility]-confined to bed) 2790.709 Calculation Used for Recommendations [facility] Additional Notes Pro needs 1.25-1.5 g/k- 111 g/day Fluid needs 1ml/kcal Nutrition Intervention Nutrition Support: TPN at 84 ml/hr. Osmolality: 1316 Na 150 mEq, 75%/25% chloride/ acetate Once PEG placed: Recommend Glucerna 1.2 at 50 ml/hr. Flush with 100 ml q4h. Kcal 1,752 Protein (gm) 75 Carbohydrates (gm) 280 Fat (gm) 50 Fluid (mL) 2,266 Goal #1 PN to meet nutrient needs as best possible Goal #2 TF start/tolerance Anticipated Discharge Needs: TF via PEG Follow-Up By: 09/03/20 Additional Comments Labs in am: BMP, Mg, Phos
[2020-09-03] MEDS: levETIRAcetam 750 MG in DEXTROSE 5% IN WATER 100 ML IV SCH ×2 (11:59→21:10)
[2020-09-03] MEDS: PANTOPRAZOLE 40 MG INJ IV SCH ×2 (11:59→21:12)
[2020-09-03] MEDS: HYDROCORTISONE SOD SUCC 100 MG/2 ML VIAL IV SCH ×2 (12:00→21:12)
--- NOTE | 2020-09-03 14:01 | Gastroenterology Progress Note ---
Assessment and Plan GI: COVID + n w/ noted Hematochezia and anemia, egd w/ PUD, unable to place peg - no signs bleeding overnight - agree w/ transfuse as ordered - will follow egd bx results - consider PEG per surgery or IR - continue PPI qd - will follow for now Subjective Date of service: 09/03/20 Principal diagnosis: Acute encephalopathy Interval history: - no signs bleeding overnight Objective - Constitutional Vitals: Temp Pulse Resp BP Pulse Ox 97.7 F 78 18 126/53 100 09/03/20 12:17 09/03/20 12:17 09/03/20 12:05 09/03/20 12:17 09/03/20 12:05 General appearance: no acute distress - EENT Eyes: PERRL - Respiratory Respiratory: bilateral: CTA - Cardiovascular Rhythm: regular Heart Sounds: Present: S1 & S2 - Gastrointestinal General gastrointestinal: Present: soft, non-tender, non-distended - Labs CBC & Chem 7: 09/01/20 Unknown 09/03/20 05:53 Labs: Laboratory Results - last 24 hr 09/02/20 09/02/20 09/03/20 18:17 23:42 05:53 Sodium 137 Potassium 3.8 Chloride 98.1 Carbon Dioxide 26 Anion Gap 17 BUN 23 H Creatinine 0.4 L Estimated GFR > 60 BUN/Creatinine Ratio 58 Glucose 290 H POC Glucose 300 H 224 H Calcium 8.4 Phosphorus 3.50 Magnesium 2.20 09/03/20 09/03/20 06:02 11:58 Sodium Potassium Chloride Carbon Dioxide Anion Gap BUN Creatinine Estimated GFR BUN/Creatinine Ratio Glucose POC Glucose 281 H 359 H Calcium Phosphorus Magnesium
[2020-09-03] MEDS ORDERED: TOTAL PARENTERAL NUTRITION 2,016 ML IV SCH (20:00)
[2020-09-03] MEDS: INSULIN GLARGINE 100 UNITS/ML SUB-Q SCH (21:10)
[2020-09-04] MEDS: INSULIN LISPRO 100 UNIT/ML VIAL 3 mL SUB-Q SCH ×4 (05:35→22:50)
[2020-09-04] MEDS: LEVOTHYROXINE 100 MCG INJ IV SCH (05:36)
[2020-09-04 07:17] LABS: Alanine Aminotransferase 8 units/L (7-56); Albumin 2.5 g/dL (3.9-5); Blood Urea Nitrogen 25 mg/dL (7-17); Calcium 8.1 mg/dL (8.4-10.2); Hemolysis Index 8
[2020-09-04 07:19] LABS: BUN/Creatinine Ratio 63
[2020-09-04] MEDS: INSULIN GLARGINE 100 UNITS/ML SUB-Q SCH ×2 (09:49→22:45)
[2020-09-04] MEDS: PANTOPRAZOLE 40 MG INJ IV SCH ×2 (09:55→22:45)
[2020-09-04] MEDS: levETIRAcetam 750 MG in DEXTROSE 5% IN WATER 100 ML IV SCH (09:55)
[2020-09-04] MEDS: HYDROCORTISONE SOD SUCC 100 MG/2 ML VIAL IV SCH ×2 (09:55→22:25)
--- NOTE | 2020-09-04 10:06 | Progress Note ---
Assessment and Plan Altered mental status brain MRI reports extensive skull base meningioma Covid 19 infection Paroxysmal atrial fibrillation rate control has been optimal without use of significant AV yoan blocking therapy, suggesting underlying conduction system disease. Rectal bleeding s/p 1 unit PRBC transfusion Endoscopy revealed gastric ulcer. Advanced dementia Further use of long-term anticoagulation will not be recommended at this time, in the setting of the recent GI bleed and resultant severe anemia. Continue conservative cardiac management. Subjective Principal diagnosis: Acute encephalopathy Interval history: Tolerated procedure well. No significant events reported overnight. PEG tube is being considered Objective Vital Signs Temp Pulse Resp BP BP Pulse Ox 09/04/20 05:34 98.4 F 66 20 135/59 100 09/03/20 22:02 98.2 F 67 20 114/53 100 09/03/20 22:00 100 09/03/20 12:17 97.7 F 78 126/53 09/03/20 12:05 98.6 F 65 18 131/55 100 - Physical Examination Narrative exam: Patient was not directly examined by me. This was done in view of the infection protocol and to minimize spread. His work-up previous examination current exami nation previous and prior labs were extensively reviewed. General: No Apparent Distress HEENT: Positive: PERRL Neck: Positive: neck supple Neuro: Positive: Weakness Abdomen: Positive: Soft Skin: Positive: Clear Extremities: Absent: edema - Labs and Meds Cardiac Enzymes 09/04/20 Range/Units 05:57 AST 11 (5-40) units/L Comprehensive Metabolic Panel 09/04/20 Range/Units 05:57 Sodium 137 (137-145) mmol/L Potassium 4.1 (3.6-5.0) mmol/L Chloride 99.7 (98-107) mmol/L Carbon Dioxide 30 (22-30) mmol/L BUN 25 H (7-17) mg/dL Creatinine 0.4 L (0.6-1.2) mg/dL Glucose 312 H (65-100) mg/dL Calcium 8.1 L (8.4-10.2) mg/dL AST 11 (5-40) units/L ALT 8 (7-56) units/L Alkaline Phosphatase 59 (35-129) units/L Total Protein 4.2 L (6.3-8.2) g/dL Albumin 2.5 L (3.9-5) g/dL - Imaging and Cardiology EKG: report reviewed
--- NOTE | 2020-09-04 11:12 | Consultation ---
History of Present Illness Consult date: 09/04/20 Chief complaint: dysphagia - History of present illness History of present illness: 80 year old female with a hx of dementia presented over two weeks ago with altered mental status. She was initially diagnosed with and treated for COVID-19 over a month ago. She tested positive again 08/24/20. During this admission she had GI bleeding that required 3 units of transfused PRBC that has now clinically resolved. She has been getting supportive care while in the hospital, including TPN for nutrition. She was not cleared during her swallow eval and was deemed to be a candidate for a gastrostomy tube. GI had performed an EGD two days ago where they visualized an antral ulcer, took biopsies, but could not complete the PEG placement due to lack of safe lumination window observed during the procedure. Surgery was called for evaluation for possible assistance with placement. Past History Past Medical History: diabetes, hyperthyroidism, other (Pituitary insufficiency, secondary renal insufficiency) Past Surgical History: No surgical history Social history: full code, other (Lives in [facility]) Family history: hypertension Medications and Allergies Allergies Allergy/AdvReac Type Severity Reaction Status Date / Time No Known Allergies Allergy Unverified 08/18/20 14:45 Home Medications Medication Instructions Recorded Confirmed Last Taken Type Amlodipine Besylate [Norvasc] 5 mg PO DAILY 08/18/20 08/18/20 Unknown History AtorvaSTATin [Lipitor] 20 mg PO QHS 08/18/20 08/18/20 Unknown History Cholecalciferol (Vitamin D3) 2,000 unit PO QDAY 08/18/20 08/18/20 Unknown History [Vitamin D3 2,000 UNIT CAP] Cyanocobalamin [Vitamin B-12] 1,000 mcg PO DAILY 08/18/20 08/18/20 Unknown History Folic Acid 1 mg PO QDAY 08/18/20 08/18/20 Unknown History Hydrocortisone 5 mg PO QHS 08/18/20 08/18/20 Unknown History Hydrocortisone 10 mg PO QAM 08/18/20 08/18/20 Unknown History Levothyroxine [Synthroid] 50 mcg PO QAM 08/18/20 08/18/20 Unknown History Ramipril 10 mg PO DAILY 08/18/20 08/18/20 Unknown History levETIRAcetam [Keppra TAB] 750 mg PO BID 08/18/20 08/18/20 Unknown History Active Meds: Active Medications Lipase/Protease/Amylase (Lipase 10,500/Protease 25,000/Amylase 43,750 (Units) Dr Fernandez) 1 each FEEDTUBE PRN PRN PRN Reason: For Clogged Feeding Tube Atropine Sulfate (Atropine 1 Mg/Ml Vial) 1 mg IV PRN PRN PRN Reason: Bradycardia Clonidine HCl (Clonidine Tts 0.2 Mg/24 Hr Patch) 0.2 mg TD We [facility] Last Admin: 08/31/20 23:35 Dose: 0.2 mg Documented by: Hydralazine HCl (Hydralazine 20 Mg/1 Ml Inj) 5 mg IV Q4H PRN PRN Reason: Blood Pressure Last Admin: 08/31/20 21:34 Dose: 5 mg Documented by: Hydrocortisone Sodium Succinate (Hydrocortisone Sod Succ 100 Mg/2 Ml Vial) 10 mg IV Q12HR [facility] Last Admin: 09/04/20 09:55 Dose: 10 mg Documented by: Levetiracetam 750 mg/ Dextrose 107.5 mls @ 400 mls/hr IV Q12HR [facility] Last Admin: 09/04/20 09:55 Dose: 400 mls/hr Documented by: Sodium Chloride (Nacl 0.9% 1000 Ml) 1,000 mls @ 50 mls/hr IV DIRECT [facility] Amino Acids/Electrolytes/Dextrose (Tpn Adult) 2,016 mls @ 84 mls/hr IV DAILY@1999 [facility]; Protocol Stop: 09/04/20 19:59 Last Admin: 09/03/20 21:09 Dose: 84 mls/hr Documented by: Insulin Glargine (Insulin Glargine 100 Units/Ml) 5 units SUB-Q BID [facility] Last Admin: 09/04/20 09:49 Dose: 5 units Documented by: Insulin Human Lispro (Insulin Lispro 100 Unit/Ml Vial 3 Ml) 0 unit SUB-Q Q6H [facility]; Protocol Last Admin: 09/04/20 09:51 Dose: 2 unit Documented by: Levothyroxine Sodium (Levothyroxine 100 Mcg Inj) 25 mcg IV DAILY@0600 [facility] Last Admin: 09/04/20 05:36 Dose: 25 mcg Documented by: Pantoprazole Sodium (Pantoprazole 40 Mg Inj) 40 mg IV BID [facility] Last Admin: 09/04/20 09:55 Dose: 40 mg Documented by: Simple Syrup (Simple Syrup 15 Ml) 15 ml FEEDTUBE PRN PRN PRN Reason: Hypoglycemia Simple Syrup (Simple Syrup 15 Ml) 30 ml FEEDTUBE PRN PRN PRN Reason: Hypoglycemia Sodium Bicarbonate (Sodium Bicarbonate 325 Mg Tab) 325 mg FEEDTUBE PRN PRN PRN Reason: For Clogged Feeding Tube Review of Systems ROS unobtainable: due to mental status Exam Vital Signs Temp BP 99.1 F 91/46 08/18/20 13:00 08/18/20 13:00 - General physical appearance Positive: well developed, no distress, no pain - Respiratory Positive: normal expansion - Extremities Extremities: no ischemia Extremity abnormal: edema - Abdomen Abdomen: Present: soft, surgical scars (lower midline vertical incision). Absent: tender, distended, guarding, rigid, wound Results - Labs 09/01/20 Unknown 09/04/20 05:57 Abnormal lab results 09/03/20 09/03/20 09/03/20 Range/Units 11:58 16:07 22:00 BUN (7-17) mg/dL Creatinine (0.6-1.2) mg/dL Glucose (65-100) mg/dL POC Glucose 359 H 280 H 229 H (70-105) mg/dL Calcium (8.4-10.2) mg/dL Total Protein (6.3-8.2) g/dL Albumin (3.9-5) g/dL 09/04/20 09/04/20 09/04/20 Range/Units 05:33 05:57 08:15 BUN 25 H (7-17) mg/dL Creatinine 0.4 L (0.6-1.2) mg/dL Glucose 312 H (65-100) mg/dL POC Glucose 283 H 236 H (70-105) mg/dL Calcium 8.1 L (8.4-10.2) mg/dL Total Protein 4.2 L (6.3-8.2) g/dL Albumin 2.5 L (3.9-5) g/dL Diabetes panel 09/04/20 Range/Units 05:57 Sodium 137 (137-145) mmol/L Potassium 4.1 (3.6-5.0) mmol/L Chloride 99.7 (98-107) mmol/L Carbon Dioxide 30 (22-30) mmol/L BUN 25 H (7-17) mg/dL Creatinine 0.4 L (0.6-1.2) mg/dL Glucose 312 H (65-100) mg/dL Calcium 8.1 L (8.4-10.2) mg/dL AST 11 (5-40) units/L ALT 8 (7-56) units/L Alkaline Phosphatase 59 (35-129) units/L Total Protein 4.2 L (6.3-8.2) g/dL Albumin 2.5 L (3.9-5) g/dL Calcium panel 09/04/20 Range/Units 05:57 Calcium 8.1 L (8.4-10.2) mg/dL Phosphorus 3.60 (2.5-4.5) mg/dL Albumin 2.5 L (3.9-5) g/dL Pituitary panel 09/04/20 Range/Units 05:57 Sodium 137 (137-145) mmol/L Potassium 4.1 (3.6-5.0) mmol/L Chloride 99.7 (98-107) mmol/L Carbon Dioxide 30 (22-30) mmol/L BUN 25 H (7-17) mg/dL Creatinine 0.4 L (0.6-1.2) mg/dL Glucose 312 H (65-100) mg/dL Calcium 8.1 L (8.4-10.2) mg/dL Adrenal panel 09/04/20 Range/Units 05:57 Sodium 137 (137-145) mmol/L Potassium 4.1 (3.6-5.0) mmol/L Chloride 99.7 (98-107) mmol/L Carbon Dioxide 30 (22-30) mmol/L BUN 25 H (7-17) mg/dL Creatinine 0.4 L (0.6-1.2) mg/dL Glucose 312 H (65-100) mg/dL Calcium 8.1 L (8.4-10.2) mg/dL Total Bilirubin 0.50 (0.1-1.2) mg/dL AST 11 (5-40) units/L ALT 8 (7-56) units/L Alkaline Phosphatase 59 (35-129) units/L Total Protein 4.2 L (6.3-8.2) g/dL Albumin 2.5 L (3.9-5) g/dL Assessment and Plan 80 year old female with a history of dementia, COVID +, dysphagia afebrile and stable. Pt could benefit from gastric tube for feeding and nutrition since she did not pass the swallow study and she has no contraindication for enteral feeding. Due to inability to complete PEG placement due to lack of luminal windo w visualization (not safe), may benefit from laparoscopic assited placement. I spoke to the patient's sister, Beka who was unaware the tube was not placed two days ago, but easily agreed to consent for lap assisted placement. Before confirming procedure date and time will appreciate the followin. cardiac clearance for procedure under general anesthesia 2. results of COVID test obtained today 3. results of EGD bx 4. I will confer with OR scheduling for time availability Agree with continued hold of anticoagulation. will continue to follow
--- NOTE | 2020-09-04 12:19 | Progress Note ---
Assessment and Plan Assessment and plan: Assessment and plan: Acute toxic metabolic encephalopathy: Still persists. Completed antibiotics for UTI. Will get LP to rule out encephalitis GI bleed/hematochezia. Nurse noted bloody stool on 08/26-08/27. Plan for colonoscopy as per GI UTI: Urine and blood cultures negative. Continue cefepime per ID recommendation Sepsis: Etiology secondary to above. Acute hypoxic respiratory failure: Continue oxygen supplementation. History of COVID-19: PCR is positive, likely just noninfectious viral fragments [place]'s disease: On chronic steroids, slightly immunocompromised host Elevated D-dimer. D-dimer noted to be 2409.7 and thus empirically started on therapeutic dose anticoagulation. Anticoagulation discontinued as patient's started having drop in hemoglobin. PAWAN: Renally dose medications. 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 Patient had brain irradiation for endocrine tumor. No baseline MRI to compare with. Given altered mental status, will consult neurosurgery for further evaluation - Neurosurgery recs no intervention. Poor intake - On TPN as NG tube could not be placed. PEG placement today as per GI 08/24/2020. Patient still mildly confused. However, I suspect patient has underlying Alzheimer's dementia and this is her baseline. I discussed plan of care and altered mentation with sister at [phone]. Patient will need DME of hospital bed and oxygen for discharge home. Await physical therapy recommendations. 08/25/2020. Patient still lethargic and confused. Patient receiving hyd rocortisone 50 mg IV twice daily for adrenal insufficiency. Check B12, folate and ammonia levels. Neurology consultation pending. Continue supplemental oxygen to maintain sats greater than 92%. 08/26/2020. Encephalopathy likely secondary to toxic metabolic causes in the setting of leukocytosis, improving uremia, renal insufficiency, covid-19, underlying uti. Check CT head without contrast and EEG per neurology recommendations. However may need csf evaluation if brain imaging and eeg are unremarkable and pt continues to remain encephalopathic. Follow-up cortisol levels and T3-T4. 08/27/2020. Patient remains lethargic and confused. Encephalopathy is persistent and likely secondary to toxic metabolic causes from sepsis, renal insufficiency/uremia, COVID-[address] scan of the head found to be negative. Await EEG. Consider CSF evaluation if EEG unremarkable. Consult GI for further evaluation of hematochezia/GI bleed. Continue Protonix 40 mg IV twice daily. Transfuse for hemoglobin less than 7. Continue to monitor serial CBC. Lovenox discontinued which was empirically started for elevated D-dimer. Patient does have a history of chronic steroids for [place]'s disease. Decrease IV hydrocortisone. Follow-up cortisol levels and T3-T4. I updated the sister and family at [phone]. 08/28/2020. Follow-up EEG per neurology. GI reports if signs of hemodynamic changes, we will proceed with stat bleeding scan. Hemoglobin has dropped to 6.8. Type and cross and transfuse 2 units. Continue to hold anticoagulation. Continue Protonix 40 mg IV twice daily. Nursing reports inability to place NG tube. Place PICC line and start TPN. Dietitian consulted. ? NG tube placement under fluoroscopy. Patient may need PEG tube placement. 08/29/2020. Patient is s/p 3 units PRBCs. Hemoglobin has stabilized to 11.5. Continue to trend and follow serial H/H. Patient remains hemodynamically stable. If patient has a change, we will proceed with stat bleeding scan. GI following. Continue Protonix 40 mg IV twice daily. Continue to hold anticoagulation. Nursing reports inability to place NG tube. PICC line placed to initiate TPN. Dietitian consulted. ? NG tube placement under fluoroscopy. Patient may need PEG tube placement. 08/30/2020. Hemoglobin remained stable. Patient is on TPN and will not be discharged on TPN. NG tube could not be placed as per RN.. Awaiting EEG to rule out any seizures. If no etiology found, patient will benefit from a PEG placement as she has advanced dementia. Continue to hold anticoagulation due to recent GI bleed. GI to reevaluate for PEG placement. 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 Not clear if this is baseline. Need to retrieve her records from previous hospitalization. Neurosurgery consulted for evaluation. 09/01/2020. She is remains confused. Neurology evaluation appreciated. No intervention for brain mass. She is on hydrocortisone for hypopituitary function. Will adjust based on cortisol levels. She will need to have PEG placement for feeds ultimately as she will not be on TPN for a long time. Will reconsult GI for NG tube placement. 09/02. Plan for PEG placement today. She is awake and alert to person only. Vitals stable. 09/03. Had EGD which showed gastritis. Patient will need to have a PEG placement by other means-IR or surgery as per GI. Now on PPI twice daily. Biopsy from gastric ulcer sent. She remains on TPN. Plan to discuss PEG placement IR or surgery. Plan for LP as well. 09/04. Surgery has been consulted for PEG placement. COVID-19 test sent. She remains on TPN. LP still pending. History Interval history: No acute events noted overnight. Plan for PEG placement - Surgery consulted. Hospitalist Physical - Physical exam Narrative exam: VITAL SIGNS: Reviewed. GENERAL: Awake but confused HEAD: No signs of head trauma. EYES: Pupils are equal. Extraocular motions intact. MOUTH: Oropharynx is normal. NECK: No adenopathy, no JVD. CHEST: Chest with diminished breath sounds bilaterally. No wheezes, rales, or rhonchi. CARDIAC: normal S1 and S2, without murmurs, gallops, or rubs. ABDOMEN: Soft, non tender and non distended. No rebound or guarding, and no masses palpated. Bowel Sounds normal. MUSCULOSKELETAL: No edema NEUROLOGIC EXAM: Awake but confused SKIN: No obvious lesions - Constitutional Vitals: Temp Pulse Resp BP Pulse Ox 98.4 F 66 20 135/59 100 09/04/20 05:34 09/04/20 05:34 09/04/20 05:34 09/04/20 05:34 09/04/20 05:34 HEART Score - HEART Score Troponin: Troponin T 0.075 ng/mL (0.00-0.029) H 08/18/20 18:25 Troponin: 1-3x normal limit - Critical Actions Critical Actions: 4-6 pts:12-16.6% risk of adverse cardiac event. Should be admitted Results - Labs CBC & Chem 7: 09/01/20 Unknown 09/04/20 05:57 Labs: Laboratory Last Values WBC 17.3 K/mm3 (4.5-11.0) H 08/31/20 06:20 RBC 3.76 M/mm3 (3.65-5.03) 08/31/20 06:20 Hgb 10.8 gm/dl (10.1-14.3) 08/31/20 06:20 Hct 32.7 % (30.3-42.9) 08/31/20 06:20 MCV 87 fl (79-97) 08/31/20 06:20 MCH 29 pg (28-32) 08/31/20 06:20 MCHC 33 % (30-34) 08/31/20 06:20 RDW 15.6 % (13.2-15.2) H 08/31/20 06:20 Plt Count 124 K/mm3 (140-440) L 09/01/20 Unknown Lymph % (Auto) 9.5 % (13.4-35.0) L 08/30/20 05:35 [place] % (Auto) 4.8 % (0.0-7.3) 08/30/20 05:35 Eos % (Auto) 0.1 % (0.0-4.3) 08/30/20 05:35 Baso % (Auto) 0.1 % (0.0-1.8) 08/30/20 05:35 Lymph # (Auto) 2.1 K/mm3 (1.2-5.4) 08/30/20 05:35 [place] # (Auto) 1.0 K/mm3 (0.0-0.8) H 08/30/20 05:35 Eos # (Auto) 0.0 K/mm3 (0.0-0.4) 08/30/20 05:35 Baso # (Auto) 0.0 K/mm3 (0.0-0.1) 08/30/20 05:35 Add Manual Diff Complete 08/31/20 06:20 Total Counted 100 08/31/20 06:20 Seg Neutrophils % 85.5 % (40.0-70.0) H 08/30/20 05:35 Seg Neuts % (Manual) 87.0 % (40.0-70.0) H 08/31/20 06:20 Band Neutrophils % 1.0 % 08/31/20 06:20 Lymphocytes % (Manual) 5.0 % (13.4-35.0) L 08/31/20 06:20 Reactive Lymphs % (Man) 1.0 % 08/28/20 10:07 Monocytes % (Manual) 5.0 % (0.0-7.3) 08/31/20 06:20 Metamyelocytes % 2.0 % 08/31/20 06:20 Nucleated RBC % Not Reportable 08/31/20 06:20 Seg Neutrophils # 18.7 K/mm3 (1.8-7.7) H 08/30/20 05:35 Seg Neutrophils # Man 15.1 K/mm3 (1.8-7.7) H 08/31/20 06:20 Band Neutrophils # 0.2 K/mm3 08/31/20 06:20 Lymphocytes # (Manual) 0.9 K/mm3 (1.2-5.4) L 08/31/20 06:20 Abs React Lymphs (Man) 0.0 K/mm3 08/31/20 06:20 Monocytes # (Manual) 0.9 K/mm3 (0.0-0.8) H 08/31/20 06:20 Eosinophils # (Manual) 0.0 K/mm3 (0.0-0.4) 08/31/20 06:20 Basophils # (Manual) 0.0 K/mm3 (0.0-0.1) 08/31/20 06:20 Metamyelocytes # 0.3 K/mm3 08/31/20 06:20 Myelocytes # 0.0 K/mm3 08/31/20 06:20 Promyelocytes # 0.0 K/mm3 08/31/20 06:20 Blast Cells # 0.0 K/mm3 08/31/20 06:20 WBC Morphology Not Reportable 08/31/20 06:20 Hypersegmented Neuts Not Reportable 08/31/20 06:20 Hyposegmented Neuts Not Reportable 08/31/20 06:20 Hypogranular Neuts Not Reportable 08/31/20 06:20 Smudge Cells Not Reportable 08/31/20 06:20 Toxic Granulation Not Reportable 08/31/20 06:20 Toxic Vacuolation Not Reportable 08/31/20 06:20 Dohle Bodies Not Reportable 08/31/20 06:20 Pelger-Huet Anomaly Not Reportable 08/31/20 06:20 Marie Rods Not Reportable 08/31/20 06:20 Platelet Estimate Consistent w auto 08/31/20 06:20 Clumped Platelets Not Reportable 08/31/20 06:20 Plt Clumps, EDTA Not Reportable 08/31/20 06:20 Large Platelets Not Reportable 08/31/20 06:20 Giant Platelets Not Reportable 08/31/20 06:20 Platelet Satelliting Not Reportable 08/31/20 06:20 Plt Morphology Comment Not Reportable 08/31/20 06:20 RBC Morphology Not Reportable 08/31/20 06:20 Dimorphic RBCs Not Reportable 08/31/20 06:20 Polychromasia Not Reportable 08/31/20 06:20 Hypochromasia Not Reportable 08/31/20 06:20 Poikilocytosis Not Reportable 08/31/20 06:20 Anisocytosis 1+ 08/31/20 06:20 Microcytosis Not Reportable 08/31/20 06:20 Macrocytosis Not Reportable 08/31/20 06:20 Spherocytes Not Reportable 08/31/20 06:20 Pappenheimer Bodies Not Reportable 08/31/20 06:20 Sickle Cells Not Reportable 08/31/20 06:20 Target Cells Not Reportable 08/31/20 06:20 Tear Drop Cells Not Reportable 08/31/20 06:20 Ovalocytes Not Reportable 08/31/20 06:20 Helmet Cells Not Reportable 08/31/20 06:20 [place] Bodies Not Reportable 08/31/20 06:20 [place] Rings Not Reportable 08/31/20 06:20 [place] Cells Not Reportable 08/31/20 06:20 Bite Cells Not Reportable 08/31/20 06:20 Crenated Cell Not Reportable 08/31/20 06:20 Elliptocytes Not Reportable 08/31/20 06:20 Acanthocytes (Spur) Not Reportable 08/31/20 06:20 Rouleaux Not Reportable 08/31/20 06:20 Hemoglobin C Crystals Not Reportable 08/31/20 06:20 Schistocytes Not Reportable 08/31/20 06:20 Malaria parasites Not Reportable 08/31/20 06:20 [place] Bodies Not Reportable 08/31/20 06:20 Hem Pathologist Commnt No 08/31/20 06:20 PT 13.1 Sec. (12.2-14.9) 09/01/20 Unknown INR 1.01 (0.87-1.13) 09/01/20 Unknown APTT 29.7 Sec. (24.2-36.6) 09/01/20 Unknown D-Dimer 2409.74 ng/mlDDU (0-234) H 08/18/20 Unknown Sodium 137 mmol/L (137-145) 09/04/20 05:57 Potassium 4.1 mmol/L (3.6-5.0) 09/04/20 05:57 Chloride 99.7 mmol/L (98-107) 09/04/20 05:57 Carbon Dioxide 30 mmol/L (22-30) 09/04/20 05:57 Anion Gap 11 mmol/L 09/04/20 05:57 BUN 25 mg/dL (7-17) H 09/04/20 05:57 Creatinine 0.4 mg/dL (0.6-1.2) L 09/04/20 05:57 Estimated GFR > 60 ml/min 09/04/20 05:57 BUN/Creatinine Ratio 63 % 09/04/20 05:57 Glucose 312 mg/dL (65-100) H 09/04/20 05:57 POC Glucose 236 mg/dL (70-105) H 09/04/20 08:15 Lactic Acid 1.00 mmol/L (0.7-2.0) 08/18/20 18:25 Calcium 8.1 mg/dL (8.4-10.2) L 09/04/20 05:57 Phosphorus 3.60 mg/dL (2.5-4.5) 09/04/20 05:57 Magnesium 2.20 mg/dL (1.7-2.3) 09/04/20 05:57 Ferritin 1950.0 ng/mL (10.0-200.0) H 08/18/20 15:35 Total Bilirubin 0.50 mg/dL (0.1-1.2) 09/04/20 05:57 AST 11 units/L (5-40) 09/04/20 05:57 ALT 8 units/L (7-56) 09/04/20 05:57 Alkaline Phosphatase 59 units/L (35-129) 09/04/20 05:57 Ammonia 32.0 umol/L (25-60) 08/25/20 09:06 Lactate Dehydrogenase 228 units/L (91-180) H 08/18/20 15:35 Total Creatine Kinase 164 units/L (30-135) H 08/22/20 19:44 Troponin T 0.075 ng/mL (0.00-0.029) H 08/18/20 18:25 C-Reactive Protein 35.60 mg/dL (0.00-1.30) H 08/18/20 15:35 Total Protein 4.2 g/dL (6.3-8.2) L 09/04/20 05:57 Albumin 2.5 g/dL (3.9-5) L 09/04/20 05:57 Albumin/Globulin Ratio 1.5 % 09/04/20 05:57 Triglycerides 70 mg/dL (2-149) 08/31/20 06:20 Cholesterol 79 mg/dL (50-199) 08/18/20 18:25 LDL Cholesterol Direct 42 mg/dL (50-130) L 08/18/20 18:25 HDL Cholesterol 23 mg/dL (40-59) L 08/18/20 18:25 Cholesterol/HDL Ratio 3.43 % 08/18/20 18:25 Vitamin B12 721.0 pg/mL (211-911) 08/25/20 09:06 Folate 8.34 ng/mL (7.3-26.0) 08/25/20 09:06 Procalcitonin 4.00 ng/mL (<0.15) 08/18/20 15:35 TSH 0.056 mlU/mL (0.270-4.200) L 08/24/20 17:02 Free T4 1.59 ng/dL (0.76-1.46) H 08/26/20 10:22 Free T3 Index 1.2 pg/mL (2.3-4.2) L 08/26/20 10:22 Total Cortisol 60.0 mcg/dL () 08/24/20 17:02 Urine Color Jacqueline (Yellow) 08/18/20 Unknown Urine Turbidity Hazy (Clear) 08/18/20 Unknown Urine pH 5.0 (5.0-7.0) 08/18/20 Unknown Ur Specific [place] 1.020 (1.003-1.030) 08/18/20 Unknown Urine Protein 30 mg/dl mg/dL (Negative) 08/18/20 Unknown Urine Glucose (UA) 50 mg/dL (Negative) 08/18/20 Unknown Urine Ketones Neg mg/dL (Negative) 08/18/20 Unknown Urine Blood Neg (Negative) 08/18/20 Unknown Urine Nitrite Neg (Negative) 08/18/20 Unknown Urine Bilirubin Neg (Negative) 08/18/20 Unknown Urine Urobilinogen 4.0 mg/dL (<2.0) 08/18/20 Unknown Ur Leukocyte Esterase Tr (Negative) 08/18/20 Unknown Urine WBC (Auto) 41.0 /HPF (0.0-6.0) H 08/18/20 Unknown Urine RBC (Auto) 4.0 /HPF (0.0-6.0) 08/18/20 Unknown U Epithel Cells (Auto) 1.0 /HPF (0-13.0) 08/18/20 Unknown Urine Mucus 3+ /HPF 08/18/20 Unknown Random Vancomycin 9.8 ug/mL (0-40.0) 08/19/20 19:02 Coronavirus (PCR) Positive (Negative) A 08/24/20 Unknown Blood Type O POSITIVE 08/27/20 20:44 Antibody Screen Negative 08/27/20 20:44 Crossmatch See Detail 08/27/20 20:44 [place]/IV: Voiding Method Indwelling Catheter IV Catheter Type [Left Triple Lumen Cath Internal Jugular] IV Catheter Type [Left] CVL Active Medications - Current Medications Current Medications: Generic Name Dose Route Start Last Admin Trade Name Freq PRN Reason Stop Dose Admin Lipase/Protease/Amylase 1 each 08/25/20 16:57 Lipase 10,500/Protease 25,000/Amylase 43,750 (Units) Dr Fernandez FEEDTUBE PRN PRN For Clogged Feeding Tube Atropine Sulfate 1 mg 08/23/20 16:56 Atropine 1 Mg/Ml Vial IV PRN PRN Bradycardia Clonidine HCl 0.2 mg 08/31/20 22:00 08/31/20 23:35 Clonidine Tts 0.2 Mg/24 Hr Patch TD 0.2 mg We BARBARA Administration Hydralazine HCl 5 mg 08/31/20 21:22 08/31/20 21:34 Hydralazine 20 Mg/1 Ml Inj IV 5 mg Q4H PRN Administration Blood Pressure Hydrocortisone Sodium Succinate 10 mg 08/27/20 10:07 09/04/20 09:55 Hydrocortisone Sod Succ 100 Mg/2 Ml Vial IV 10 mg Q12HR BARBARA Administration Levetiracetam 750 mg/ Dextrose 107.5 mls @ 400 mls/hr 08/24/20 12:00 09/04/20 09:55 IV 400 mls/hr Q12HR BARBARA Administration Sodium Chloride 1,000 mls @ 50 mls/hr 09/02/20 14:30 Nacl 0.9% 1000 Ml IV DIRECT BARBARA Amino Acids/Electrolytes/Dextrose 2,016 mls @ 84 mls/hr 09/03/20 20:00 09/03/20 21:09 Tpn Adult IV 09/04/20 19:59 84 mls/hr DAILY@1999 [facility] Administration Protocol Amino Acids/Electrolytes/Dextrose 2,016 mls @ 84 mls/hr 09/04/20 20:00 Tpn Adult IV DAILY@1999 [facility] Protocol Insulin Glargine 5 units 09/03/20 22:00 09/04/20 09:49 Insulin Glargine 100 Units/Ml SUB-Q 5 units BID BARBARA Administration Insulin Human Lispro 0 unit 09/01/20 10:00 09/04/20 09:51 Insulin Lispro 100 Unit/Ml Vial 3 Ml SUB-Q 2 unit Q6H BARBARA Administration Protocol Levothyroxine Sodium 25 mcg 08/24/20 13:00 09/04/20 05:36 Levothyroxine 100 Mcg Inj IV 25 mcg DAILY@0600 BARBARA Administration Pantoprazole Sodium 40 mg 08/26/20 22:00 09/04/20 09:55 Pantoprazole 40 Mg Inj IV 40 mg BID BARBARA Administration Simple Syrup 15 ml 08/25/20 15:57 Simple Syrup 15 Ml FEEDTUBE PRN PRN Hypoglycemia Simple Syrup 30 ml 08/25/20 15:57 Simple Syrup 15 Ml FEEDTUBE PRN PRN Hypoglycemia Sodium Bicarbonate 325 mg 08/25/20 15:57 Sodium Bicarbonate 325 Mg Tab FEEDTUBE PRN PRN For Clogged Feeding Tube Nutrition/Malnutrition Assess - Dietary Evaluation Nutrition/Malnutrition Findings: Nutrition Notes Start: 08/23/20 10:57 Freq: Status: Active Protocol: Document 09/04/20 11:04 DIANA (Rec: 09/04/20 11:09 DIANA [id number]) Nutrition Notes Initial or Follow up Reassessment Current Diagnosis Acute Kidney Injury,Diabetes, Sepsis Other Pertinent Diagnosis Encephalopathy, COVID-19 (+), GIB, UTI, gastric ulcer, gastritis Current Diet TPN at 84 ml/hr Labs/Tests BG 312 Pertinent Medications Humalog, Lantus Height 5 ft 5 in Weight 80.3 kg [place] Body Weight (kg) 56.81 BMI 29.5 Weight change and time frame Wt gain noted Weight Status Appropriate Subjective/Other Information TPN day 7. Pt tolerating TPN. Percent of energy/protein needs met: 98%/81% Burn Absent Trauma Absent GI Symptoms None Current % PO Negligible Minimum of two criteria No Energy Intake (severe) < or equal to 50% Estimated Energy Requirement > or equal to 5 days #2 Nutrition Diagnosis Increased nutrient needs ( specify in comment below) Diagnosis Progress(for reassessment Continues documentation) #1 Nutrition Diagnosis Inadequate oral intake Diagnosis Progress(for reassessment Continues documentation) Is patient on ventilator? No Is Patient Ambulatory and/or Out of Bed No REE-([facility]-confined to bed) 1523.556 Kcal/Kg value to use for calculation 18 Approximate Energy Requirements Using 1445 kcal/Kg Calculation Used for Recommendations Kcal/kg Additional Notes Pro needs 1.25-1.5 g/k- 111 g/day Fluid needs 1ml/kcal Nutrition Intervention Nutrition Support: TPN at 84 ml/hr. Osmolality: 1490 Amino acids: 4.2% Once PEG placed: Recommend Glucerna 1.2 at 50 ml/hr. Flush with 100 ml q4h. Kcal 1,462 Protein (gm) 85 Carbohydrates (gm) 330 Fat (gm) 0 Fluid (mL) 2,016 Goal #1 PN to meet nutrient needs as best possible Goal #2 PEG or DHT placement Anticipated Discharge Needs: TF via PEG Follow-Up By: 09/05/20 Additional Comments FU for stable TPN
--- NOTE | 2020-09-04 16:29 | Gastroenterology Progress Note ---
Assessment and Plan 1. C. diff: overall improved - continue current meds 2. GI: s/p egd w/ pud but unable to have peg placed - awaiting egd bx's - surgery note reviewed, for peg in future - PPI qd - follow h/h - will follow for now Subjective Date of service: 09/04/20 Principal diagnosis: Acute encephalopathy Interval history: - no GI issues overnight Objective - Constitutional Vitals: Temp Pulse Resp BP Pulse Ox 97.5 F L 68 20 161/66 100 09/04/20 12:02 09/04/20 12:02 09/04/20 12:02 09/04/20 12:02 09/04/20 12:02 General appearance: no acute distress - EENT Eyes: PERRL - Respiratory Respiratory: bilateral: rhonchi - Cardiovascular Rhythm: regular Heart Sounds: Present: S1 & S2 - Gastrointestinal General gastrointestinal: Present: soft, non-tender, non-distended - Labs CBC & Chem 7: 09/01/20 Unknown 09/04/20 05:57 Labs: Laboratory Results - last 24 hr 09/03/20 09/04/20 09/04/20 22:00 05:33 05:57 Sodium 137 Potassium 4.1 Chloride 99.7 Carbon Dioxide 30 Anion Gap 11 BUN 25 H Creatinine 0.4 L Estimated GFR > 60 BUN/Creatinine Ratio 63 Glucose 312 H POC Glucose 229 H 283 H Calcium 8.1 L Phosphorus 3.60 Magnesium 2.20 Total Bilirubin 0.50 AST 11 ALT 8 Alkaline Phosphatase 59 Total Protein 4.2 L Albumin 2.5 L Albumin/Globulin Ratio 1.5 Coronavirus (PCR) 09/04/20 09/04/20 09/04/20 08:15 10:27 12:02 Sodium Potassium Chloride Carbon Dioxide Anion Gap BUN Creatinine Estimated GFR BUN/Creatinine Ratio Glucose POC Glucose 236 H 231 H Calcium Phosphorus Magnesium Total Bilirubin AST ALT Alkaline Phosphatase Total Protein Albumin Albumin/Globulin Ratio Coronavirus (PCR) Positive A
[2020-09-04] MEDS ORDERED: TOTAL PARENTERAL NUTRITION 2,016 ML IV SCH (20:00)
[2020-09-05] MEDS: levETIRAcetam 750 MG in DEXTROSE 5% IN WATER 100 ML IV SCH ×3 (00:27→21:39)
[2020-09-05] MEDS: INSULIN LISPRO 100 UNIT/ML VIAL 3 mL SUB-Q SCH ×4 (04:33→23:13)
[2020-09-05] MEDS: LEVOTHYROXINE 100 MCG INJ IV SCH (05:27)
[2020-09-05] MEDS: HYDROCORTISONE SOD SUCC 100 MG/2 ML VIAL IV SCH ×2 (09:44→21:39)
[2020-09-05] MEDS: PANTOPRAZOLE 40 MG INJ IV SCH ×2 (09:45→21:39)
--- NOTE | 2020-09-05 10:07 | Progress Note ---
Assessment and Plan Assessment and plan: Assessment and plan: Acute toxic metabolic encephalopathy: Still persists. Completed antibiotics for UTI. Will get LP to rule out encephalitis. GI bleed/hematochezia. Nurse noted bloody stool on 08/26-08/27. Plan for colonoscopy as per GI. UTI: Urine and blood cultures negative. Continue cefepime per ID recommendation Sepsis: Etiology secondary to above. Acute hypoxic respiratory failure: Continue oxygen supplementation. On 3 L of oxygen History of COVID-19: PCR is positive, likely just noninfectious viral fragments. 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 D-dimer noted to be 2409.7 and thus empirically started on therapeutic dose anticoagulation. Anticoagulation discontinued as patient's started having drop in hemoglobin. PAWAN: Renally dose medications. 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 Patient had brain irradiation for endocrine tumor. No baseline MRI to compare with. Given altered mental status, will consult neurosurgery for further evaluation - Neurosurgery recs no intervention. Poor intake - On TPN as NG tube could not be placed. PEG could not be placed by gastroenterology so surgery was consulted. Surgery needs patient to be Covid negative prior to test. COVID-19 test performed and patient is still positive. Surgery to review Hospital course 08/24/2020. Patient still mildly confused. However, I suspect patient has underlying Alzheimer's dementia and this is her baseline. I discussed plan of care and altered mentation with sister at [phone]. Patient will need DME of hospital bed and oxygen for discharge home. Await physical therapy recommendations. 08/25/2020. Patient still lethargic and confused. Patient receiving hydrocortisone 50 mg IV twice daily for adrenal insufficiency. Check B12, folate and ammonia levels. Neurology consultation pending. Continue supplemental oxygen to maintain sats greater than 92%. 08/26/2020. Encephalopathy likely secondary to toxic metabolic causes in the setting of leukocytosis, improving uremia, renal insufficiency, covid-19, underlying uti. Check CT head without contrast and EEG per neurology recommendations. However may need csf evaluation if brain imaging and eeg are unremarkable and pt continues to remain encephalopathic. Follow-up cortisol levels and T3-T4. 08/27/2020. Patient remains lethargic and confused. Encephalopathy is persistent and likely secondary to toxic metabolic causes from sepsis, renal insufficiency/uremia, COVID-[address] scan of the head found to be negative. Await EEG. Consider CSF evaluation if EEG unremarkable. Consult GI for further evaluation of hematochezia/GI bleed. Continue Protonix 40 mg IV twice daily. Transfuse for hemoglobin less than 7. Continue to monitor serial CBC. Lovenox discontinued which was empirically started for elevated D-dimer. 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 Decrease IV hydrocortisone. Follow-up cortisol levels and T3-T4. I updated the sister and family at [phone]. 08/28/2020. Follow-up EEG per neurology. GI reports if signs of hemodynamic changes, we will proceed with stat bleeding scan. Hemoglobin has dropped to 6.8. Type and cross and transfuse 2 units. Continue to hold anticoagulation. Continue Protonix 40 mg IV twice daily. Nursing reports inability to place NG tube. Place PICC line and start TPN. Dietitian consulted. ? NG tube placement under fluoroscopy. Patient may need PEG tube placement. 08/29/2020. Patient is s/p 3 units PRBCs. Hemoglobin has stabilized to 11.5. Continue to trend and follow serial H/H. Patient remains hemodynamically stable. If patient has a change, we will proceed with stat bleeding scan. GI following. Continue Protonix 40 mg IV twice daily. Continue to hold anticoagulation. Nursing reports inability to place NG tube. PICC line placed to initiate TPN. Dietitian consulted. ? NG tube placement under fluoroscopy. Patient may need PEG tube placement. 08/30/2020. Hemoglobin remained stable. Patient is on TPN and will not be dis charged on TPN. NG tube could not be placed as per RN.. Awaiting EEG to rule out any seizures. If no etiology found, patient will benefit from a PEG placement as she has advanced dementia. Continue to hold anticoagulation due to recent GI bleed. GI to reevaluate for PEG placement. 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 Not clear if this is baseline. Need to retrieve her records from previous hospitalization. Neurosurgery consulted for evaluation. 09/01/2020. She is remains confused. Neurology evaluation appreciated. No intervention for brain mass. She is on hydrocortisone for hypopituitary function. Will adjust based on cortisol levels. She will need to have PEG placement for feeds ultimately as she will not be on TPN for a long time. Will r econsult GI for NG tube placement. 09/02. Plan for PEG placement today. She is awake and alert to person only. Vitals stable. 09/03. Had EGD which showed gastritis. Patient will need to have a PEG placement by other means-IR or surgery as per GI. Now on PPI twice daily. Biopsy from gastric ulcer sent. She remains on TPN. Plan to discuss PEG placement IR or surgery. Plan for LP as well. 09/04. Surgery has been consulted for PEG placement. COVID-19 test sent. She remains on TPN. LP still pending 09/05. Patient is awake today but confused. COVID-19 test remains positive. Patients PEG placement may be held for now as per surgery continue Covid infection resolved. She remains on TPN. LP still pending. History Interval history: No acute events noted overnight. Plan for PEG placement. Remains Covid positive Hospitalist Physical - Physical exam Narrative exam: VITAL SIGNS: Reviewed. GENERAL: Awake but confused HEAD: No signs of head trauma. EYES: Pupils are equal. Extraocular motions intact. MOUTH: Oropharynx is normal. NECK: No adenopathy, no JVD. CHEST: Chest with diminished breath sounds bilaterally. No wheezes, rales, or rhonchi. CARDIAC: normal S1 and S2, without murmurs, gallops, or rubs. ABDOMEN: Soft, non tender and non distended. No rebound or guarding, and no masses palpated. Bowel Sounds normal. MUSCULOSKELETAL: No edema NEUROLOGIC EXAM: Awake but confused SKIN: No obvious lesions - Constitutional Vitals: Temp Pulse Resp BP Pulse Ox 98.3 F 72 20 144/56 100 09/05/20 06:37 09/05/20 06:37 09/05/20 06:37 09/05/20 06:37 09/05/20 06:37 HEART Score - HEART Score Troponin: Troponin T 0.075 ng/mL (0.00-0.029) H 08/18/20 18:25 Troponin: 1-3x normal limit - Critical Actions Critical Actions: 4-6 pts:12-16.6% risk of adverse cardiac event. Should be admitted Results - Labs CBC & Chem 7: 09/01/20 Unknown 09/04/20 05:57 Labs: Laboratory Last Values WBC 17.3 K/mm3 (4.5-11.0) H 08/31/20 06:20 RBC 3.76 M/mm3 (3.65-5.03) 08/31/20 06:20 Hgb 10.8 gm/dl (10.1-14.3) 08/31/20 06:20 Hct 32.7 % (30.3-42.9) 08/31/20 06:20 MCV 87 fl (79-97) 08/31/20 06:20 MCH 29 pg (28-32) 08/31/20 06:20 MCHC 33 % (30-34) 08/31/20 06:20 RDW 15.6 % (13.2-15.2) H 08/31/20 06:20 Plt Count 124 K/mm3 (140-440) L 09/01/20 Unknown Lymph % (Auto) 9.5 % (13.4-35.0) L 08/30/20 05:35 [place] % (Auto) 4.8 % (0.0-7.3) 08/30/20 05:35 Eos % (Auto) 0.1 % (0.0-4.3) 08/30/20 05:35 Baso % (Auto) 0.1 % (0.0-1.8) 08/30/20 05:35 Lymph # (Auto) 2.1 K/mm3 (1.2-5.4) 08/30/20 05:35 [place] # (Auto) 1.0 K/mm3 (0.0-0.8) H 08/30/20 05:35 Eos # (Auto) 0.0 K/mm3 (0.0-0.4) 08/30/20 05:35 Baso # (Auto) 0.0 K/mm3 (0.0-0.1) 08/30/20 05:35 Add Manual Diff Complete 08/31/20 06:20 Total Counted 100 08/31/20 06:20 Seg Neutrophils % 85.5 % (40.0-70.0) H 08/30/20 05:35 Seg Neuts % (Manual) 87.0 % (40.0-70.0) H 08/31/20 06:20 Band Neutrophils % 1.0 % 08/31/20 06:20 Lymphocytes % (Manual) 5.0 % (13.4-35.0) L 08/31/20 06:20 Reactive Lymphs % (Man) 1.0 % 08/28/20 10:07 Monocytes % (Manual) 5.0 % (0.0-7.3) 08/31/20 06:20 Metamyelocytes % 2.0 % 08/31/20 06:20 Nucleated RBC % Not Reportable 08/31/20 06:20 Seg Neutrophils # 18.7 K/mm3 (1.8-7.7) H 08/30/20 05:35 Seg Neutrophils # Man 15.1 K/mm3 (1.8-7.7) H 08/31/20 06:20 Band Neutrophils # 0.2 K/mm3 08/31/20 06:20 Lymphocytes # (Manual) 0.9 K/mm3 (1.2-5.4) L 08/31/20 06:20 Abs React Lymphs (Man) 0.0 K/mm3 08/31/20 06:20 Monocytes # (Manual) 0.9 K/mm3 (0.0-0.8) H 08/31/20 06:20 Eosinophils # (Manual) 0.0 K/mm3 (0.0-0.4) 08/31/20 06:20 Basophils # (Manual) 0.0 K/mm3 (0.0-0.1) 08/31/20 06:20 Metamyelocytes # 0.3 K/mm3 08/31/20 06:20 Myelocytes # 0.0 K/mm3 08/31/20 06:20 Promyelocytes # 0.0 K/mm3 08/31/20 06:20 Blast Cells # 0.0 K/mm3 08/31/20 06:20 WBC Morphology Not Reportable 08/31/20 06:20 Hypersegmented Neuts Not Reportable 08/31/20 06:20 Hyposegmented Neuts Not Reportable 08/31/20 06:20 Hypogranular Neuts Not Reportable 08/31/20 06:20 Smudge Cells Not Reportable 08/31/20 06:20 Toxic Granulation Not Reportable 08/31/20 06:20 Toxic Vacuolation Not Reportable 08/31/20 06:20 Dohle Bodies Not Reportable 08/31/20 06:20 Pelger-Huet Anomaly Not Reportable 08/31/20 06:20 Marie Rods Not Reportable 08/31/20 06:20 Platelet Estimate Consistent w auto 08/31/20 06:20 Clumped Platelets Not Reportable 08/31/20 06:20 Plt Clumps, EDTA Not Reportable 08/31/20 06:20 Large Platelets Not Reportable 08/31/20 06:20 Giant Platelets Not Reportable 08/31/20 06:20 Platelet Satelliting Not Reportable 08/31/20 06:20 Plt Morphology Comment Not Reportable 08/31/20 06:20 RBC Morphology Not Reportable 08/31/20 06:20 Dimorphic RBCs Not Reportable 08/31/20 06:20 Polychromasia Not Reportable 08/31/20 06:20 Hypochromasia Not Reportable 08/31/20 06:20 Poikilocytosis Not Reportable 08/31/20 06:20 Anisocytosis 1+ 08/31/20 06:20 Microcytosis Not Reportable 08/31/20 06:20 Macrocytosis Not Reportable 08/31/20 06:20 Spherocytes Not Reportable 08/31/20 06:20 Pappenheimer Bodies Not Reportable 08/31/20 06:20 Sickle Cells Not Reportable 08/31/20 06:20 Target Cells Not Reportable 08/31/20 06:20 Tear Drop Cells Not Reportable 08/31/20 06:20 Ovalocytes Not Reportable 08/31/20 06:20 Helmet Cells Not Reportable 08/31/20 06:20 [place] Bodies Not Reportable 08/31/20 06:20 Bryson Rings Not Reportable 08/31/20 06:20 Darren Cells Not Reportable 08/31/20 06:20 Bite Cells Not Reportable 08/31/20 06:20 Crenated Cell Not Reportable 08/31/20 06:20 Elliptocytes Not Reportable 08/31/20 06:20 Acanthocytes (Spur) Not Reportable 08/31/20 06:20 Rouleaux Not Reportable 08/31/20 06:20 Hemoglobin C Crystals Not Reportable 08/31/20 06:20 Schistocytes Not Reportable 08/31/20 06:20 Malaria parasites Not Reportable 08/31/20 06:20 Payam Bodies Not Reportable 08/31/20 06:20 Hem Pathologist Commnt No 08/31/20 06:20 PT 13.1 Sec. (12.2-14.9) 09/01/20 Unknown INR 1.01 (0.87-1.13) 09/01/20 Unknown APTT 29.7 Sec. (24.2-36.6) 09/01/20 Unknown D-Dimer 2409.74 ng/mlDDU (0-234) H 08/18/20 Unknown Sodium 137 mmol/L (137-145) 09/04/20 05:57 Potassium 4.1 mmol/L (3.6-5.0) 09/04/20 05:57 Chloride 99.7 mmol/L (98-107) 09/04/20 05:57 Carbon Dioxide 30 mmol/L (22-30) 09/04/20 05:57 Anion Gap 11 mmol/L 09/04/20 05:57 BUN 25 mg/dL (7-17) H 09/04/20 05:57 Creatinine 0.4 mg/dL (0.6-1.2) L 09/04/20 05:57 Estimated GFR > 60 ml/min 09/04/20 05:57 BUN/Creatinine Ratio 63 % 09/04/20 05:57 Glucose 312 mg/dL (65-100) H 09/04/20 05:57 POC Glucose 283 mg/dL (70-105) H 09/05/20 09:57 Lactic Acid 1.00 mmol/L (0.7-2.0) 08/18/20 18:25 Calcium 8.1 mg/dL (8.4-10.2) L 09/04/20 05:57 Phosphorus 3.60 mg/dL (2.5-4.5) 09/04/20 05:57 Magnesium 2.20 mg/dL (1.7-2.3) 09/04/20 05:57 Ferritin 1950.0 ng/mL (10.0-200.0) H 08/18/20 15:35 Total Bilirubin 0.50 mg/dL (0.1-1.2) 09/04/20 05:57 AST 11 units/L (5-40) 09/04/20 05:57 ALT 8 units/L (7-56) 09/04/20 05:57 Alkaline Phosphatase 59 units/L (35-129) 09/04/20 05:57 Ammonia 32.0 umol/L (25-60) 08/25/20 09:06 Lactate Dehydrogenase 228 units/L (91-180) H 08/18/20 15:35 Total Creatine Kinase 164 units/L (30-135) H 08/22/20 19:44 Troponin T 0.075 ng/mL (0.00-0.029) H 08/18/20 18:25 C-Reactive Protein 35.60 mg/dL (0.00-1.30) H 08/18/20 15:35 Total Protein 4.2 g/dL (6.3-8.2) L 09/04/20 05:57 Albumin 2.5 g/dL (3.9-5) L 09/04/20 05:57 Albumin/Globulin Ratio 1.5 % 09/04/20 05:57 Triglycerides 70 mg/dL (2-149) 08/31/20 06:20 Cholesterol 79 mg/dL (50-199) 08/18/20 18:25 LDL Cholesterol Direct 42 mg/dL (50-130) L 08/18/20 18:25 HDL Cholesterol 23 mg/dL (40-59) L 08/18/20 18:25 Cholesterol/HDL Ratio 3.43 % 08/18/20 18:25 Vitamin B12 721.0 pg/mL (211-911) 08/25/20 09:06 Folate 8.34 ng/mL (7.3-26.0) 08/25/20 09:06 Procalcitonin 4.00 ng/mL (<0.15) 08/18/20 15:35 TSH 0.056 mlU/mL (0.270-4.200) L 08/24/20 17:02 Free T4 1.59 ng/dL (0.76-1.46) H 08/26/20 10:22 Free T3 Index 1.2 pg/mL (2.3-4.2) L 08/26/20 10:22 Total Cortisol 60.0 mcg/dL () 08/24/20 17:02 Urine Color Jacqueline (Yellow) 08/18/20 Unknown Urine Turbidity Hazy (Clear) 08/18/20 Unknown Urine pH 5.0 (5.0-7.0) 08/18/20 Unknown Ur Specific [place] 1.020 (1.003-1.030) 08/18/20 Unknown Urine Protein 30 mg/dl mg/dL (Negative) 08/18/20 Unknown Urine Glucose (UA) 50 mg/dL (Negative) 08/18/20 Unknown Urine Ketones Neg mg/dL (Negative) 08/18/20 Unknown Urine Blood Neg (Negative) 08/18/20 Unknown Urine Nitrite Neg (Negative) 08/18/20 Unknown Urine Bilirubin Neg (Negative) 08/18/20 Unknown Urine Urobilinogen 4.0 mg/dL (<2.0) 08/18/20 Unknown Ur Leukocyte Esterase Tr (Negative) 08/18/20 Unknown Urine WBC (Auto) 41.0 /HPF (0.0-6.0) H 08/18/20 Unknown Urine RBC (Auto) 4.0 /HPF (0.0-6.0) 08/18/20 Unknown U Epithel Cells (Auto) 1.0 /HPF (0-13.0) 08/18/20 Unknown Urine Mucus 3+ /HPF 08/18/20 Unknown Random Vancomycin 9.8 ug/mL (0-40.0) 08/19/20 19:02 Coronavirus (PCR) Positive (Negative) A 09/04/20 10:27 Blood Type O POSITIVE 08/27/20 20:44 Antibody Screen Negative 08/27/20 20:44 Crossmatch See Detail 08/27/20 20:44 Montalvo/IV: Voiding Method Indwelling Catheter IV Catheter Type [Left Triple Lumen Cath Internal Jugular] IV Catheter Type [Left] CVL Active Medications - Current Medications Current Medications: Generic Name Dose Route Start Last Admin Trade Name Freq PRN Reason Stop Dose Admin Lipase/Protease/Amylase 1 each 08/25/20 16:57 Lipase 10,500/Protease 25,000/Amylase 43,750 (Units) Dr Fernandez FEEDTUBE PRN PRN For Clogged Feeding Tube Atropine Sulfate 1 mg 08/23/20 16:56 Atropine 1 Mg/Ml Vial IV PRN PRN Bradycardia Clonidine HCl 0.2 mg 08/31/20 22:00 08/31/20 23:35 Clonidine Tts 0.2 Mg/24 Hr Patch TD 0.2 mg We BARBARA Administration Hydralazine HCl 5 mg 08/31/20 21:22 08/31/20 21:34 Hydralazine 20 Mg/1 Ml Inj IV 5 mg Q4H PRN Administration Blood Pressure Hydrocortisone Sodium Succinate 10 mg 08/27/20 10:07 09/05/20 09:44 Hydrocortisone Sod Succ 100 Mg/2 Ml Vial IV 10 mg Q12HR BARBARA Administration Levetiracetam 750 mg/ Dextrose 107.5 mls @ 400 mls/hr 08/24/20 12:00 09/05/20 09:44 IV 400 mls/hr Q12HR BARBARA Administration Sodium Chloride 1,000 mls @ 50 mls/hr 09/02/20 14:30 Nacl 0.9% 1000 Ml IV DIRECT BARBARA Amino Acids/Electrolytes/Dextrose 2,016 mls @ 84 mls/hr 09/04/20 20:00 09/04/20 20:21 Tpn Adult IV 84 mls/hr DAILY@2000 [facility] Administration Protocol Insulin Glargine 5 units 09/03/20 22:00 09/04/20 22:45 Insulin Glargine 100 Units/Ml SUB-Q 5 units BID BARBARA Administration Insulin Human Lispro 0 unit 09/01/20 10:00 09/05/20 09:59 Insulin Lispro 100 Unit/Ml Vial 3 Ml SUB-Q 3 unit Q6H [facility] Administration Protocol Levothyroxine Sodium 25 mcg 08/24/20 13:00 09/05/20 05:27 Levothyroxine 100 Mcg Inj IV 25 mcg DAILY@0600 BARBARA Administration Pantoprazole Sodium 40 mg 08/26/20 22:00 09/05/20 09:45 Pantoprazole 40 Mg Inj IV 40 mg BID BARBARA Administration Simple Syrup 15 ml 08/25/20 15:57 Simple Syrup 15 Ml FEEDTUBE PRN PRN Hypoglycemia Simple Syrup 30 ml 08/25/20 15:57 Simple Syrup 15 Ml FEEDTUBE PRN PRN Hypoglycemia Sodium Bicarbonate 325 mg 08/25/20 15:57 Sodium Bicarbonate 325 Mg Tab FEEDTUBE PRN PRN For Clogged Feeding Tube Nutrition/Malnutrition Assess - Dietary Evaluation Nutrition/Malnutrition Findings: Nutrition Notes Start: 08/23/20 10:57 Freq: Status: Active Protocol: Document 09/04/20 11:04 DIANA (Rec: 09/04/20 11:09 DIANA [id number]) Nutrition Notes Initial or Follow up Reassessment Current Diagnosis Acute Kidney Injury,Diabetes, Sepsis Other Pertinent Diagnosis Encephalopathy, COVID-19 (+), GIB, UTI, gastric ulcer, gastritis Current Diet TPN at 84 ml/hr Labs/Tests BG 312 Pertinent Medications Humalog, Lantus Height 5 ft 5 in Weight 80.3 kg [place] Body Weight (kg) 56.81 BMI 29.5 Weight change and time frame Wt gain noted Weight Status Appropriate Subjective/Other Information TPN day 7. Pt tolerating TPN. Percent of energy/protein needs met: 98%/81% Burn Absent Trauma Absent GI Symptoms None Current % PO Negligible Minimum of two criteria No Energy Intake (severe) < or equal to 50% Estimated Energy Requirement > or equal to 5 days #2 Nutrition Diagnosis Increased nutrient needs ( specify in comment below) Diagnosis Progress(for reassessment Continues documentation) #1 Nutrition Diagnosis Inadequate oral intake Diagnosis Progress(for reassessment Continues documentation) Is patient on ventilator? No Is Patient Ambulatory and/or Out of Bed No REE-([place]-confined to bed) 1523.556 Kcal/Kg value to use for calculation 18 Approximate Energy Requirements Using 1445 kcal/Kg Calculation Used for Recommendations Kcal/kg Additional Notes Pro needs 1.25-1.5 g/k- 111 g/day Fluid needs 1ml/kcal Nutrition Intervention Nutrition Support: TPN at 84 ml/hr. Osmolality: 1490 Amino acids: 4.2% Once PEG placed: Recommend Glucerna 1.2 at 50 ml/hr. Flush with 100 ml q4h. Kcal 1,462 Protein (gm) 85 Carbohydrates (gm) 330 Fat (gm) 0 Fluid (mL) 2,016 Goal #1 PN to meet nutrient needs as best possible Goal #2 PEG or DHT placement Anticipated Discharge Needs: TF via PEG Follow-Up By: 09/05/20 Additional Comments FU for stable TPN
[2020-09-05] MEDS: INSULIN GLARGINE 100 UNITS/ML SUB-Q SCH ×2 (10:22→23:13)
--- NOTE | 2020-09-05 12:09 | Event Note ---
Date: 09/05/[address] Randall (ID) who said that older patients can remain covid + for up to several months and are unlikely to be contagious. No further COVID tests will be ordered. Pt will need to be cleared by cardiology for general anesthetic procedure before placing on the schedule. Due to inability to place NGT, pt is not a candidate for IR placed gastric tube. As part of jeffrey-operative planning, CT scan ordered today to look for an anatomical reason that transillumination was not successful during attempt last week for tube placement.
--- NOTE | 2020-09-05 12:18 | Progress Note ---
Assessment and Plan - Patient Problems (1) Atrial fibrillation Current Visit: Yes Status: Acute Plan to address problem: Patient has paroxysmal atrial fibrillation, seen on routine telemetry monitoring while hospitalized with altered mental status, dehydration and acute renal failure. Rate control has been optimal without use of significant AV yoan blocking therapy, suggesting underlying conduction system disease. I will however return patient to remote telemetry monitoring which was discontinued for unclear reasons. Further use of long-term anticoagulation will not be recommended at this time, in the setting of the recent GI bleed and resultant severe anemia. (2) Preop cardiovascular exam Current Visit: Yes Status: Acute Plan to address problem: Patient is at low to medium risk for noncardiac surgery, you may proceed as indicated. We will follow perioperatively. Subjective Date of service: 09/05/20 Principal diagnosis: Acute encephalopathy Interval history: Patient is comfortable, awaiting surgical placement of a gastrostomy feeding tube. 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 Objective Vital Signs Temp Pulse Resp BP Pulse Ox 09/05/20 06:37 98.3 F 72 20 144/56 100 09/04/20 22:00 100 09/04/20 16:34 97.4 F L 59 L 20 117/49 100 - Physical Examination General: No Apparent Distress Neck: Positive: neck supple Cardiac: Positive: Reg Rate and Rhythm Lungs: Positive: Decreased Breath Sounds Neuro: Positive: Weakness (Generalized lethargy) Abdomen: Positive: Soft Skin: Positive: Clear Extremities: Absent: edema - Imaging and Cardiology EKG: report reviewed
--- NOTE | 2020-09-05 14:00 | Gastroenterology Progress Note ---
Assessment and Plan 1. C. diff: diarrhea improved, stable - continue current treatment 2. GI: pud on EGD, unable to place peg - surgery input noted, possible peg placement soon - awaiting egd bx's, will follow results - continue PPI qd - no need further GI input at this time, will sign off, call if needed Subjective Date of service: 09/05/20 Principal diagnosis: Acute encephalopathy Interval history: -no GI issues overnight Objective - Constitutional Vitals: Temp Pulse Resp BP Pulse Ox 98.2 F 66 24 167/52 99 09/05/20 11:12 09/05/20 11:12 09/05/20 11:12 09/05/20 11:12 09/05/20 11:12 General appearance: no acute distress - EENT Eyes: PERRL - Respiratory Respiratory: bilateral: CTA - Cardiovascular Rhythm: regular Heart Sounds: Present: S1 & S2 - Gastrointestinal General gastrointestinal: Present: soft, non-tender, non-distended - Labs CBC & Chem 7: 09/01/20 Unknown 09/04/20 05:57 Labs: Laboratory Results - last 24 hr 09/04/20 09/04/20 09/04/20 10:27 16:34 23:47 POC Glucose 213 H 226 H Coronavirus (PCR) Positive A 09/05/20 09/05/20 04:19 09:57 POC Glucose 197 H 283 H Coronavirus (PCR)
--- NOTE | 2020-09-05 14:40 | Cat Scan Report ---
CT ABDOMEN AND PELVIS WITHOUT CONTRAST INDICATION / CLINICAL INFORMATION: Unsuccessful endoscopic PEG tube placement. Evaluate GI tract anatomy. TECHNIQUE: Axial CT images were obtained through the abdomen and pelvis without IV contrast. All CT scans at [facility] location are performed using CT dose reduction for ALARA by means of automated exposure control. COMPARISON: None available. FINDINGS: LOWER CHEST: There are small pleural effusions with associated atelectasis. The thoracic aorta is mod erately calcified. There is severe coronary atherosclerosis. No other significant abnormality. LIVER: No acute abnormality. There is nonspecific increased attenuation throughout the liver. GALLBLADDER: No significant abnormality. BILE DUCTS: No significant abnormality. PANCREAS: No significant abnormality. SPLEEN: No significant abnormality. ADRENALS: No significant abnormality. RIGHT KIDNEY / URETER: No significant abnormality. LEFT KIDNEY / URETER: No significant abnormality. STOMACH / SMALL BOWEL: The stomach is mostly collapsed with an expected orientation. The lateral segm ent of the left hepatic lobe overlies the distal gastric body/gastric antrum. No significant abnormal ity of the small bowel. COLON: There is predominantly sigmoid diverticulosis without evidence of diverticulitis. No other sig nificant abnormality. APPENDIX: Not seen. PERITONEUM: No free fluid. No free air. No fluid collection. LYMPH NODES: No significant adenopathy. AORTA / ARTERIES: The aorta is normal in caliber with moderate generalized atherosclerosis. IVC / VEINS: No significant abnormality. URINARY BLADDER: A Montalvo catheter terminates as expected within the bladder. Air within the bladder i s likely related to catheter placement. No other significant abnormality. REPRODUCTIVE ORGANS: Prior hysterectomy. No significant abnormality. ADDITIONAL FINDINGS: None. SKELETAL SYSTEM: No acute abnormality. The bones are demineralized with severe degenerative changes s een throughout the spine. There is grade 1 anterolisthesis at L3-L4 and grade 1 spondylolisthesis at L4-L5. There are generalized moderate degenerative changes of the pelvis. IMPRESSION: 1. Left hepatic lobe overlying the distal stomach as above without an acute abnormality of the stomac h. 2. Additional findings as above. Signer Name: John Quintanilla MD Signed: 09/05/2020 2:35 PM Workstation Name: [id number]
[2020-09-05] MEDS ORDERED: FAT EMULSIONS 20% 250 ML IV SCH ×2 (20:00)
[2020-09-05] MEDS ORDERED: TOTAL PARENTERAL NUTRITION 2,016 ML IV SCH (20:00)
[2020-09-06] MEDS: INSULIN LISPRO 100 UNIT/ML VIAL 3 mL SUB-Q SCH ×4 (03:41→23:42)
[2020-09-06] MEDS: LEVOTHYROXINE 100 MCG INJ IV SCH (05:11)
[2020-09-06] MEDS: SODIUM CHLORIDE 0.9% 1000 ML 1,000 ML IV SCH (05:11)
[2020-09-06 06:36] LABS: Blood Urea Nitrogen 23 mg/dL (7-17); Calcium 8.2 mg/dL (8.4-10.2); Hemolysis Index 23
[2020-09-06 06:46] LABS: BUN/Creatinine Ratio 58
--- NOTE | 2020-09-06 08:55 | Progress Note ---
Assessment and Plan Preoperative cardiovascular exam Paroxysmal atrial fibrillation rate control has been optimal without use of significant AV yoan blocking therapy, suggesting underlying conduction system disease. further use of long-term anticoagulation will not be recommended at this time, in the setting of the recent GI bleed and severe anemia. 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 Advanced dementia Patient is at low to medium risk for noncardiac surgery, you may proceed as indicated. We will follow perioperatively. Subjective Date of service: 09/06/20 Principal diagnosis: Acute encephalopathy Interval history: No interval cardiac changes. Awaits surgical placement of a gastrostomy feeding tube. Stable sinus rhythm on telemetry. Objective Vital Signs Temp Pulse Pulse Resp BP BP Pulse Ox 09/06/20 06:00 97.9 F 80 20 133/64 98 09/05/20 22:35 97.4 F L 78 15 153/73 99 09/05/20 22:00 78 99 09/05/20 17:22 97.2 F L 61 24 146/64 100 09/05/20 11:12 98.2 F 66 24 167/52 99 - Physical Examination Narrative exam: Deferred due to isolation protocol. General: No Apparent Distress Cardiac: Positive: Reg Rate and Rhythm - Labs and Meds Comprehensive Metabolic Panel 09/06/20 Range/Units 05:24 Sodium 140 (137-145) mmol/L Potassium 3.7 (3.6-5.0) mmol/L Chloride 100.4 (98-107) mmol/L Carbon Dioxide 32 H (22-30) mmol/L BUN 23 H (7-17) mg/dL Creatinine 0.4 L (0.6-1.2) mg/dL Glucose 238 H (65-100) mg/dL Calcium 8.2 L (8.4-10.2) mg/dL
--- NOTE | 2020-09-06 09:53 | Progress Note ---
Assessment and Plan Assessment and plan: Acute toxic metabolic encephalopathy: Possibly secondary to infection versus decreased renal function. GI bleed/hematochezia. Nurse noted bloody stool on 08/26-08/27 UTI: Urine and blood cultures negative. Continue cefepime per ID recommendation Sepsis: Etiology secondary to above. Acute hypoxic respiratory failure: Currently on 3 L nasal cannula. Unclear if she has discharged on oxygen from bradycardia when she had Covid. 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 D-dimer noted to be 2409.7 and thus empirically started on therapeutic dose anticoagulation. PAWAN: Renally dose medications. 08/24/2020. Patient still mildly confused. However, I suspect patient has underlying Alzheimer's dementia and this is her baseline. I discussed plan of care and altered mentation with sister at [phone]. Patient will need DME of hospital bed and oxygen for discharge home. Await physical therapy recommendations. 08/25/2020. Patient still lethargic and confused. Patient receiving hydrocortisone 50 mg IV twice daily for adrenal insufficiency. Check B12, folate and ammonia levels. Neurology consultation pending. Continue supplemental oxygen to maintain sats greater than 92%. 08/26/2020. Encephalopathy likely secondary to toxic metabolic causes in the setting of leukocytosis, improving uremia, renal insufficiency, covid-19, underlying uti. Check CT head without contrast and EEG per neurology recommendations. However may need csf evaluation if brain imaging and eeg are unremarkable and pt continues to remain encephalopathic. Follow-up cortisol levels and T3-T4. 08/27/2020. Patient remains lethargic and confused. Encephalopathy is persistent and likely secondary to toxic metabolic causes from sepsis, renal insufficiency/uremia, COVID-[address] scan of the head found to be negative. Await EEG. Consider CSF evaluation if EEG unremarkable. Consult GI for further evaluation of hematochezia/GI bleed. Continue Protonix 40 mg IV twice daily. Transfuse for hemoglobin less than 7. Continue to monitor serial CBC. Lovenox discontinued which was empirically started for elevated D-dimer. Patient does have a history of chronic steroids for [place]'s disease. Decrease IV hydrocortisone. Follow-up cortisol levels and T3-T4. I updated the sister and family at [phone]. 08/28/2020. Follow-up EEG per neurology. GI reports if signs of hemodynamic changes, we will proceed with stat bleeding scan. Hemoglobin has dropped to 6 .8. Type and cross and transfuse 2 units. Continue to hold anticoagulation. Continue Protonix 40 mg IV twice daily. Nursing reports inability to place NG tube. Place PICC line and start TPN. Dietitian consulted. ? NG tube placement under fluoroscopy. Patient may need PEG tube placement. 08/29/2020. Patient is s/p 3 units PRBCs. Hemoglobin has stabilized to 11.5. Continue to trend and follow serial H/H. Patient remains hemodynamically stable. If patient has a change, we will proceed with stat bleeding scan. GI following. Continue Protonix 40 mg IV twice daily. Continue to hold a nticoagulation. Nursing reports inability to place NG tube. PICC line placed to initiate TPN. Dietitian consulted. ? NG tube placement under fluoroscopy. Patient may need PEG tube placement. 08/30/2020. Hemoglobin remained stable. Patient is on TPN and will not be discharged on TPN. NG tube could not be placed as per RN.. Awaiting EEG to rule out any seizures. If no etiology found, patient will benefit from a PEG placement as she has advanced dementia. Continue to hold anticoagulation due to recent GI bleed. GI to reevaluate for PEG placement. 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 Not clear if this is baseline. Need to retrieve her records from previous hospitalization. Neurosurgery consulted for evaluation. 09/01/2020. She is remains confused. Neurology evaluation appreciated. No intervention for brain mass. She is on hydrocortisone for hypopituitary function. Will adjust based on cortisol levels. She will need to have PEG plac ement for feeds ultimately as she will not be on TPN for a long time. Will reconsult GI for NG tube placement. 09/02. Plan for PEG placement today. She is awake and alert to person only. Vitals stable. 09/03. Had EGD which showed gastritis. Patient will need to have a PEG placement by other means-IR or surgery as per GI. Now on PPI twice daily. Biopsy from gastric ulcer sent. She remains on TPN. Plan to discuss PEG placement IR or surgery. Plan for LP as well. 09/04. Surgery has been consulted for PEG placement. COVID-19 test sent. She remains on TPN. LP still pending 09/05. Patient is awake today but confused. COVID-19 test remains positive. Patients PEG placement may be held for now as per surgery continue Covid infection resolved. She remains on TPN. LP still pending. 09/06. Patient remains confused. COVID-19 test remains positive. Patients PEG placement may be held for now as per surgery continue Covid infection resolved. She remains on TPN. LP still pending. History Interval history: No new issues Hospitalist Physical - Constitutional Vitals: Temp Pulse Resp BP Pulse Ox 97.9 F 80 20 133/64 100 09/06/20 06:00 09/06/20 06:00 09/06/20 06:00 09/06/20 06:00 09/06/20 09:08 General appearance: Present: no acute distress, well-nourished, other (Lethargic and confused) - EENT Eyes: Present: PERRL, EOM intact ENT: hearing intact, clear oral mucosa, dentition normal - Neck Neck: Present: supple, normal ROM - Respiratory Respiratory effort: normal Respiratory: bilateral: CTA - Cardiovascular Rhythm: regular Heart Sounds: Present: S1 & S2. Absent: gallop, rub - Extremities Extremities: no ischemia, No edema, Full ROM - Abdominal General gastrointestinal: soft, non-tender, non-distended, normal bowel sounds - Integumentary Integumentary: Present: clear, warm, dry - Neurologic Neurologic: CNII-XII intact, moves all extremities HEART Score - HEART Score Troponin: Troponin T 0.075 ng/mL (0.00-0.029) H 08/18/20 18:25 Troponin: 1-3x normal limit - Critical Actions Critical Actions: 4-6 pts:12-16.6% risk of adverse cardiac event. Should be admitted Results - Labs CBC & Chem 7: 09/01/20 Unknown 09/06/20 05:24 Labs: Laboratory Last Values WBC 17.3 K/mm3 (4.5-11.0) H 08/31/20 06:20 RBC 3.76 M/mm3 (3.65-5.03) 08/31/20 06:20 Hgb 10.8 gm/dl (10.1-14.3) 08/31/20 06:20 Hct 32.7 % (30.3-42.9) 08/31/20 06:20 MCV 87 fl (79-97) 08/31/20 06:20 MCH 29 pg (28-32) 08/31/20 06:20 MCHC 33 % (30-34) 08/31/20 06:20 RDW 15.6 % (13.2-15.2) H 08/31/20 06:20 Plt Count 124 K/mm3 (140-440) L 09/01/20 Unknown Lymph % (Auto) 9.5 % (13.4-35.0) L 08/30/20 05:35 [place] % (Auto) 4.8 % (0.0-7.3) 08/30/20 05:35 Eos % (Auto) 0.1 % (0.0-4.3) 08/30/20 05:35 Baso % (Auto) 0.1 % (0.0-1.8) 08/30/20 05:35 Lymph # (Auto) 2.1 K/mm3 (1.2-5.4) 08/30/20 05:35 [place] # (Auto) 1.0 K/mm3 (0.0-0.8) H 08/30/20 05:35 Eos # (Auto) 0.0 K/mm3 (0.0-0.4) 08/30/20 05:35 Baso # (Auto) 0.0 K/mm3 (0.0-0.1) 08/30/20 05:35 Add Manual Diff Complete 08/31/20 06:20 Total Counted 100 08/31/20 06:20 Seg Neutrophils % 85.5 % (40.0-70.0) H 08/30/20 05:35 Seg Neuts % (Manual) 87.0 % (40.0-70.0) H 08/31/20 06:20 Band Neutrophils % 1.0 % 08/31/20 06:20 Lymphocytes % (Manual) 5.0 % (13.4-35.0) L 08/31/20 06:20 Reactive Lymphs % (Man) 1.0 % 08/28/20 10:07 Monocytes % (Manual) 5.0 % (0.0-7.3) 08/31/20 06:20 Metamyelocytes % 2.0 % 08/31/20 06:20 Nucleated RBC % Not Reportable 08/31/20 06:20 Seg Neutrophils # 18.7 K/mm3 (1.8-7.7) H 08/30/20 05:35 Seg Neutrophils # Man 15.1 K/mm3 (1.8-7.7) H 08/31/20 06:20 Band Neutrophils # 0.2 K/mm3 08/31/20 06:20 Lymphocytes # (Manual) 0.9 K/mm3 (1.2-5.4) L 08/31/20 06:20 Abs React Lymphs (Man) 0.0 K/mm3 08/31/20 06:20 Monocytes # (Manual) 0.9 K/mm3 (0.0-0.8) H 08/31/20 06:20 Eosinophils # (Manual) 0.0 K/mm3 (0.0-0.4) 08/31/20 06:20 Basophils # (Manual) 0.0 K/mm3 (0.0-0.1) 08/31/20 06:20 Metamyelocytes # 0.3 K/mm3 08/31/20 06:20 Myelocytes # 0.0 K/mm3 08/31/20 06:20 Promyelocytes # 0.0 K/mm3 08/31/20 06:20 Blast Cells # 0.0 K/mm3 08/31/20 06:20 WBC Morphology Not Reportable 08/31/20 06:20 Hypersegmented Neuts Not Reportable 08/31/20 06:20 Hyposegmented Neuts Not Reportable 08/31/20 06:20 Hypogranular Neuts Not Reportable 08/31/20 06:20 Smudge Cells Not Reportable 08/31/20 06:20 Toxic Granulation Not Reportable 08/31/20 06:20 Toxic Vacuolation Not Reportable 08/31/20 06:20 Dohle Bodies Not Reportable 08/31/20 06:20 Pelger-Huet Anomaly Not Reportable 08/31/20 06:20 Marie Rods Not Reportable 08/31/20 06:20 Platelet Estimate Consistent w auto 08/31/20 06:20 Clumped Platelets Not Reportable 08/31/20 06:20 Plt Clumps, EDTA Not Reportable 08/31/20 06:20 Large Platelets Not Reportable 08/31/20 06:20 Giant Platelets Not Reportable 08/31/20 06:20 Platelet Satelliting Not Reportable 08/31/20 06:20 Plt Morphology Comment Not Reportable 08/31/20 06:20 RBC Morphology Not Reportable 08/31/20 06:20 Dimorphic RBCs Not Reportable 08/31/20 06:20 Polychromasia Not Reportable 08/31/20 06:20 Hypochromasia Not Reportable 08/31/20 06:20 Poikilocytosis Not Reportable 08/31/20 06:20 Anisocytosis 1+ 08/31/20 06:20 Microcytosis Not Reportable 08/31/20 06:20 Macrocytosis Not Reportable 08/31/20 06:20 Spherocytes Not Reportable 08/31/20 06:20 Pappenheimer Bodies Not Reportable 08/31/20 06:20 Sickle Cells Not Reportable 08/31/20 06:20 Target Cells Not Reportable 08/31/20 06:20 Tear Drop Cells Not Reportable 08/31/20 06:20 Ovalocytes Not Reportable 08/31/20 06:20 Helmet Cells Not Reportable 08/31/20 06:20 [place] Bodies Not Reportable 08/31/20 06:20 [place] Rings Not Reportable 08/31/20 06:20 [place] Cells Not Reportable 08/31/20 06:20 Bite Cells Not Reportable 08/31/20 06:20 Crenated Cell Not Reportable 08/31/20 06:20 Elliptocytes Not Reportable 08/31/20 06:20 Acanthocytes (Spur) Not Reportable 08/31/20 06:20 Rouleaux Not Reportable 08/31/20 06:20 Hemoglobin C Crystals Not Reportable 08/31/20 06:20 Schistocytes Not Reportable 08/31/20 06:20 Malaria parasites Not Reportable 08/31/20 06:20 Payam Bodies Not Reportable 08/31/20 06:20 Hem Pathologist Commnt No 08/31/20 06:20 PT 13.1 Sec. (12.2-14.9) 09/01/20 Unknown INR 1.01 (0.87-1.13) 09/01/20 Unknown APTT 29.7 Sec. (24.2-36.6) 09/01/20 Unknown D-Dimer 2409.74 ng/mlDDU (0-234) H 08/18/20 Unknown Sodium 140 mmol/L (137-145) 09/06/20 05:24 Potassium 3.7 mmol/L (3.6-5.0) 09/06/20 05:24 Chloride 100.4 mmol/L (98-107) 09/06/20 05:24 Carbon Dioxide 32 mmol/L (22-30) H 09/06/20 05:24 Anion Gap 11 mmol/L 09/06/20 05:24 BUN 23 mg/dL (7-17) H 09/06/20 05:24 Creatinine 0.4 mg/dL (0.6-1.2) L 09/06/20 05:24 Estimated GFR > 60 ml/min 09/06/20 05:24 BUN/Creatinine Ratio 58 % 09/06/20 05:24 Glucose 238 mg/dL (65-100) H 09/06/20 05:24 POC Glucose 229 mg/dL (70-105) H 09/06/20 03:36 Lactic Acid 1.00 mmol/L (0.7-2.0) 08/18/20 18:25 Calcium 8.2 mg/dL (8.4-10.2) L 09/06/20 05:24 Phosphorus 3.30 mg/dL (2.5-4.5) 09/06/20 05:24 Magnesium 2.00 mg/dL (1.7-2.3) 09/06/20 05:24 Ferritin 1950.0 ng/mL (10.0-200.0) H 08/18/20 15:35 Total Bilirubin 0.50 mg/dL (0.1-1.2) 09/04/20 05:57 AST 11 units/L (5-40) 09/04/20 05:57 ALT 8 units/L (7-56) 09/04/20 05:57 Alkaline Phosphatase 59 units/L (35-129) 09/04/20 05:57 Ammonia 32.0 umol/L (25-60) 08/25/20 09:06 Lactate Dehydrogenase 228 units/L (91-180) H 08/18/20 15:35 Total Creatine Kinase 164 units/L (30-135) H 08/22/20 19:44 Troponin T 0.075 ng/mL (0.00-0.029) H 08/18/20 18:25 C-Reactive Protein 35.60 mg/dL (0.00-1.30) H 08/18/20 15:35 Total Protein 4.2 g/dL (6.3-8.2) L 09/04/20 05:57 Albumin 2.5 g/dL (3.9-5) L 09/04/20 05:57 Albumin/Globulin Ratio 1.5 % 09/04/20 05:57 Triglycerides 70 mg/dL (2-149) 08/31/20 06:20 Cholesterol 79 mg/dL (50-199) 08/18/20 18:25 LDL Cholesterol Direct 42 mg/dL (50-130) L 08/18/20 18:25 HDL Cholesterol 23 mg/dL (40-59) L 08/18/20 18:25 Cholesterol/HDL Ratio 3.43 % 08/18/20 18:25 Vitamin B12 721.0 pg/mL (211-911) 08/25/20 09:06 Folate 8.34 ng/mL (7.3-26.0) 08/25/20 09:06 Procalcitonin 4.00 ng/mL (<0.15) 08/18/20 15:35 TSH 0.056 mlU/mL (0.270-4.200) L 08/24/20 17:02 Free T4 1.59 ng/dL (0.76-1.46) H 08/26/20 10:22 Free T3 Index 1.2 pg/mL (2.3-4.2) L 08/26/20 10:22 Total Cortisol 60.0 mcg/dL () 08/24/20 17:02 Urine Color Jacqueline (Yellow) 08/18/20 Unknown Urine Turbidity Hazy (Clear) 08/18/20 Unknown Urine pH 5.0 (5.0-7.0) 08/18/20 Unknown Ur Specific [place] 1.020 (1.003-1.030) 08/18/20 Unknown Urine Protein 30 mg/dl mg/dL (Negative) 08/18/20 Unknown Urine Glucose (UA) 50 mg/dL (Negative) 08/18/20 Unknown Urine Ketones Neg mg/dL (Negative) 08/18/20 Unknown Urine Blood Neg (Negative) 08/18/20 Unknown Urine Nitrite Neg (Negative) 08/18/20 Unknown Urine Bilirubin Neg (Negative) 08/18/20 Unknown Urine Urobilinogen 4.0 mg/dL (<2.0) 08/18/20 Unknown Ur Leukocyte Esterase Tr (Negative) 08/18/20 Unknown Urine WBC (Auto) 41.0 /HPF (0.0-6.0) H 08/18/20 Unknown Urine RBC (Auto) 4.0 /HPF (0.0-6.0) 08/18/20 Unknown U Epithel Cells (Auto) 1.0 /HPF (0-13.0) 08/18/20 Unknown Urine Mucus 3+ /HPF 08/18/20 Unknown Random Vancomycin 9.8 ug/mL (0-40.0) 08/19/20 19:02 Coronavirus (PCR) Positive (Negative) A 09/04/20 10:27 Blood Type O POSITIVE 08/27/20 20:44 Antibody Screen Negative 08/27/20 20:44 Crossmatch See Detail 08/27/20 20:44 [place]/IV: Voiding Method Indwelling Catheter IV Catheter Type [Left Triple Lumen Cath Internal Jugular] IV Catheter Type [Left] CVL Active Medications - Current Medications Current Medications: Generic Name Dose Route Start Last Admin Trade Name Freq PRN Reason Stop Dose Admin Lipase/Protease/Amylase 1 each 08/25/20 16:57 Lipase 10,500/Protease 25,000/Amylase 43,750 (Units) Dr Fernandez FEEDTUBE PRN PRN For Clogged Feeding Tube Atropine Sulfate 1 mg 08/23/20 16:56 Atropine 1 Mg/Ml Vial IV PRN PRN Bradycardia Clonidine HCl 0.2 mg 08/31/20 22:00 08/31/20 23:35 Clonidine Tts 0.2 Mg/24 Hr Patch TD 0.2 mg We BARBARA Administration Hydralazine HCl 5 mg 08/31/20 21:22 08/31/20 21:34 Hydralazine 20 Mg/1 Ml Inj IV 5 mg Q4H PRN Administration Blood Pressure Hydrocortisone Sodium Succinate 10 mg 08/27/20 10:07 09/05/20 21:39 Hydrocortisone Sod Succ 100 Mg/2 Ml Vial IV 10 mg Q12HR BARBARA Administration Levetiracetam 750 mg/ Dextrose 107.5 mls @ 400 mls/hr 08/24/20 12:00 09/05/20 21:39 IV 400 mls/hr Q12HR BARBARA Administration Sodium Chloride 1,000 mls @ 50 mls/hr 09/02/20 14:30 09/06/20 05:11 Nacl 0.9% 1000 Ml IV 50 mls/hr DIRECT BARBARA Administration Amino Acids/Electrolytes/Dextrose 2,016 mls @ 84 mls/hr 09/05/20 20:00 09/05/20 22:22 Tpn Adult IV 09/06/20 19:59 84 mls/hr DAILY@2000 BARBARA Administration Protocol Insulin Glargine 5 units 09/03/20 22:00 09/05/20 23:13 Insulin Glargine 100 Units/Ml SUB-Q 5 units BID BARBARA Administration Insulin Human Lispro 0 unit 09/01/20 10:00 09/06/20 03:41 Insulin Lispro 100 Unit/Ml Vial 3 Ml SUB-Q 2 unit Q6H BARBARA Administration Protocol Levothyroxine Sodium 25 mcg 08/24/20 13:00 09/06/20 05:11 Levothyroxine 100 Mcg Inj IV 25 mcg DAILY@0600 BARBARA Administration Pantoprazole Sodium 40 mg 08/26/20 22:00 09/05/20 21:39 Pantoprazole 40 Mg Inj IV 40 mg BID BARBARA Administration Simple Syrup 15 ml 08/25/20 15:57 Simple Syrup 15 Ml FEEDTUBE PRN PRN Hypoglycemia Simple Syrup 30 ml 08/25/20 15:57 Simple Syrup 15 Ml FEEDTUBE PRN PRN Hypoglycemia Sodium Bicarbonate 325 mg 08/25/20 15:57 Sodium Bicarbonate 325 Mg Tab FEEDTUBE PRN PRN For Clogged Feeding Tube Nutrition/Malnutrition Assess - Dietary Evaluation Nutrition/Malnutrition Findings: Nutrition Notes Start: 08/23/20 10:57 Freq: Status: Active Protocol: Document 09/05/20 11:21 DIANA (Rec: 09/05/20 11:25 [id number]) Nutrition Notes Initial or Follow up Reassessment Current Diagnosis Acute Kidney Injury,Diabetes, Sepsis Other Pertinent Diagnosis Encephalopathy, COVID-19 (+), GIB, UTI, gastric ulcer, gastritis Current Diet TPN at 84 ml/hr Labs/Tests POC BG 197 Pertinent Medications Reviewed Height 5 ft 5 in Weight 81 kg [place] Body Weight (kg) 56.81 BMI 29.7 Weight Status Appropriate Subjective/Other Information TPN day 8. Per chart, pt pending PEG due to COVID-19(+) . Percent of energy/protein needs met: 98%/91% Burn Absent Trauma Absent GI Symptoms None Current % PO Negligible Minimum of two criteria No Energy Intake (severe) < or equal to 50% Estimated Energy Requirement > or equal to 5 days #2 Nutrition Diagnosis Increased nutrient needs ( specify in comment below) Diagnosis Progress(for reassessment Continues documentation) #1 Nutrition Diagnosis Inadequate oral intake Diagnosis Progress(for reassessment Continues documentation) Is patient on ventilator? No Is Patient Ambulatory and/or Out of Bed No REE-([facility]-confined to bed) 1531.956 Kcal/Kg value to use for calculation 18 Approximate Energy Requirements Using 1458 kcal/Kg Calculation Used for Recommendations Kcal/kg Additional Notes Pro needs 1.25-1.5 g/k- 111 g/day Fluid needs 1ml/kcal Nutrition Intervention Nutrition Support: TPN at 84 ml/hr. Osmolality: 1416 Dextrose: 14.9% Lipids, MVI Once PEG placed: Recommend Glucerna 1.2 at 50 ml/hr. Flush with 100 ml q4h. Kcal 1,860 Protein (gm) 85 Carbohydrates (gm) 300 Fat (gm) 50 Fluid (mL) 2,266 Goal #1 PN to meet nutrient needs as best possible Goal #2 PEG or DHT placement Anticipated Discharge Needs: TF via PEG Follow-Up By: 09/06/20 Additional Comments Labs in am: BMP, Mg, Phos
[2020-09-06] MEDS: INSULIN GLARGINE 100 UNITS/ML SUB-Q SCH ×2 (09:56→23:42)
[2020-09-06] MEDS: PANTOPRAZOLE 40 MG INJ IV SCH (09:57)
[2020-09-06] MEDS: HYDROCORTISONE SOD SUCC 100 MG/2 ML VIAL IV SCH ×2 (09:58→21:48)
[2020-09-06] MEDS: levETIRAcetam 750 MG in DEXTROSE 5% IN WATER 100 ML IV SCH ×2 (10:07→21:47)
--- NOTE | 2020-09-06 11:12 | Progress Note ---
Assessment and Plan 80 year old female with dementia and dysphagia. stable and afebrile. Will take for lap assisted PEG placement today. Subjective Date of service: 09/06/20 Narrative: no acute events overnight. Pt was cleared by cardiology for lap assisted PEG placement. Objective Vital Signs - 12hr 09/06/20 09/06/20 09/06/20 06:00 09:08 10:09 Temperature 97.9 F 97.8 F Pulse Rate 80 73 Respiratory 20 16 Rate Blood Pressure 187/75 Blood Pressure 133/64 [Right] O2 Sat by Pulse 98 100 100 Oximetry 09/06/20 11:08 Temperature Pulse Rate Respiratory Rate Blood Pressure Blood Pressure 174/60 [Right] O2 Sat by Pulse Oximetry - General physical appearance well developed, no distress, no pain - Respiratory normal expansion - Abdomen soft, not tender, not distended - Labs 09/01/20 Unknown 09/06/20 05:24 Diabetes panel 09/06/20 Range/Units 05:24 Sodium 140 (137-145) mmol/L Potassium 3.7 (3.6-5.0) mmol/L Chloride 100.4 (98-107) mmol/L Carbon Dioxide 32 H (22-30) mmol/L BUN 23 H (7-17) mg/dL Creatinine 0.4 L (0.6-1.2) mg/dL Glucose 238 H (65-100) mg/dL Calcium 8.2 L (8.4-10.2) mg/dL Calcium panel 09/06/20 Range/Units 05:24 Calcium 8.2 L (8.4-10.2) mg/dL Phosphorus 3.30 (2.5-4.5) mg/dL Pituitary panel 09/06/20 Range/Units 05:24 Sodium 140 (137-145) mmol/L Potassium 3.7 (3.6-5.0) mmol/L Chloride 100.4 (98-107) mmol/L Carbon Dioxide 32 H (22-30) mmol/L BUN 23 H (7-17) mg/dL Creatinine 0.4 L (0.6-1.2) mg/dL Glucose 238 H (65-100) mg/dL Calcium 8.2 L (8.4-10.2) mg/dL Adrenal panel 09/06/20 Range/Units 05:24 Sodium 140 (137-145) mmol/L Potassium 3.7 (3.6-5.0) mmol/L Chloride 100.4 (98-107) mmol/L Carbon Dioxide 32 H (22-30) mmol/L BUN 23 H (7-17) mg/dL Creatinine 0.4 L (0.6-1.2) mg/dL Glucose 238 H (65-100) mg/dL Calcium 8.2 L (8.4-10.2) mg/dL
[2020-09-06] MEDS ORDERED: propofoL 200 MG/20 ML VIAL IV ONE (11:42)
[2020-09-06] MEDS: hydrALAZINE 20 MG/1 ML INJ IV PRN ×2 (12:35→23:43)
[2020-09-06] MEDS ORDERED: BUPIVACAINE/PF (0.25%) 2.5 MG/ML 30 ML VIAL INFILTRATI ONE (12:37)
[2020-09-06] MEDS ORDERED: LIDOCAINE (1%) 10 MG/1 ML VIAL 20 ML MDV ONE (12:37)
[2020-09-06] MEDS ORDERED: SODIUM CHLORIDE 0.9% 1000 ML 1,000 ML ONE (12:59)
--- NOTE | 2020-09-06 13:23 | Anesthesia Consultation ---
Anesthesia Consult and Med Hx Date of service: 09/06/20 - Airway Anesthetic Teeth Evaluation: Poor Mental/Hyoid Distance: Adequate Intubation Access Assessment: Possibly Difficult - Pulmonary Exam CTA: No - Cardiac Exam Cardiac Exam: RRR - Pre-Operative Health Status ASA Pre-Surgery Classification: ASA4 Proposed Anesthetic Plan: General - Pulmonary Hx Respiratory Symptoms: Yes (2-3L NC while inpatient, unclear if on O2 as outpatient) Hx Pneumonia: Yes (COVID+ 07/2020) - Cardiovascular System Hx Hypertension: Yes Hx Cardia Arrhythmia: Yes (paroxysmal A-fib) Hx Pacemaker: No Hx Internal Defibrillator: No - Central Nervous System 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 Attempted EGD/PEG placement on 09/02/20 was unsuccessful. Now scheduled for lap g-tube placement in OR. Given current clinical condition, patient is high risk for post op respiratory failure requiring mechanical ventilation. Discussed with ICU charge nurse and ICU bed is currently available. Will attempt extubation at end of procedure but if unable to safely extubate, patient will be transferred to ICU.
--- NOTE | 2020-09-06 13:24 | Anesthesia Day of Surgery ---
Anesthesia Day of Surgery - Day of Surgery Patient Examined: Yes Patient H&P Reviewed: Yes Patient is NPO: Yes
[2020-09-06] MEDS ORDERED: ESMOLOL 100 MG/10 ML INJ IV ONE (14:00)
[2020-09-06] MEDS ORDERED: ROCURONIUM 50 MG/5 ML INJ IV ONE (14:00)
[2020-09-06] MEDS ORDERED: NEOSTIGMINE 10MG/10 ML INJ MDV ONE (14:00)
[2020-09-06] MEDS ORDERED: GLYCOPYRROLATE 0.4 MG/2 ML INJ ONE (14:00)
[2020-09-06] MEDS ORDERED: ceFAZolin 1 GM VIAL ONE (14:00)
--- NOTE | 2020-09-06 15:11 | Operative Report ---
Operative Report Operative Report: DATE: 09/06/20 Surgeon: Willie Quarles MD Co Surgeon:Laila Marshall DO Procedure: Laparoscopic assisted PEG tube placement Pre-op Dx: dysphagia Post op Dx: same as pre-op Anesthesia: GETA Indication: 80 year old female admitted for dementia and altered mental status. She did not pass a swallow study evaluation and was determined to be a candidate for feeding via gastric tube. GI had attempted PEG tube placement but aborted when no safe transillumination window could be identified. Surgery was called for lap assisted PEG placement. Consent was obtained from the patient's sister who expressed understanding of the risk and benefits. Details of procedure: Patient was brought into the OR suite and placed in supine position. Lateral lower extremity SCDs were placed. General anesthesia was induced via successful tracheal tube intubation. A bite-block was placed in the patient's mouth. Patient abdomen was prepped and draped in sterile fashion. After a time out was performed, local anesthetic was infiltrated to the tskin at the intended incision site. A veress needed was used to insuflate the abdomen to a pressure of 15mmHg. After which using optiview technique, a 5mm trocar was placed in the left upper quadrant. There was noted to be on injury to intra- abdominal structures. Dr. Marshall performed the EGD during the procedure. A flexible endoscope was passed through the mouth, into the esophagus and into the stomach. The stomach was insufflated and examination showed no gross abnormalities. The stomach was identified laparoscopically. There was transillumination just below and to the left of the xiphoid. A small incision was made approximately 2 fingerbreadths inferior to the xiphoid. Insufflation was turned down to 10mmHg in order to allow the stomach to gently oppose the abdominal wall. The needle was inserted through the incision and into the stomach under direct laparoscopic visualization. The wire was passed into the stomach and grasped with the endoscopic snare. The wire and the endoscope were withdrawn and the PEG tube was assembled in the usual fashion. Once the PEG tube was assembled it was pulled into and through the stomach and anterior abdominal wall in the standard fashion. The endoscope was once again passed into the stomach and the inner PEG bumper was seen to lay against the stomach mucosa without tension. There was no bleeding. The outer bumper was at 3cm at the skin. the PEG tube was assembled in the usual fashion. The abdomen was desufflated and all ports removed. The laparoscopic incisions were approximated using 4-O monocryl stitches followed by dermabond. Pt was awoken, extubated and taken to recovery in stable condition. All counts were correct. Complications: none immediate Findings: none unusual
[2020-09-06] MEDS ORDERED: LIDOCAINE (1%) 10 MG/1 ML VIAL 20 ML MDV INFILTRATI ONE ×2 (15:13)
[2020-09-06] MEDS ORDERED: SODIUM CHLORIDE 0.9% IRR 1,500 ML BOTTLE IR ONE (15:17)
--- NOTE | 2020-09-06 16:25 | Post Anesthesia Evaluation ---
- Post Anesthesia Evaluation Patient Participated: No Airway Patent: Yes Stable Respiratory Function: Yes (returned to baseline 3L NC) Nausea/Vomiting: No Temp > 96.8F: Yes Pain Manageable: Yes Adequeate Hydration: Yes Anesthesia Complications: No Other Comments: Late entry: Extubated immediately post-op and recovered in OR. Respirations unlabored and SpO2 100% on 3L NC. OK for transfer back to floor for further care.
[2020-09-06] MEDS ORDERED: SIMPLE SYRUP 15 ML FEEDTUBE PRN ×2 (19:27)
[2020-09-06] MEDS ORDERED: LIPASE 10,500/PROTEASE 25,000/AMYLASE 43,750 (UNITS) DR CAP FEEDTUBE PRN (19:27)
[2020-09-06] MEDS ORDERED: SODIUM BICARBONATE 325 MG TAB FEEDTUBE PRN (19:27)
[2020-09-06] MEDS ORDERED: TOTAL PARENTERAL NUTRITION 2,016 ML IV SCH (20:00)
[2020-09-07] MEDS: INSULIN LISPRO 100 UNIT/ML VIAL 3 mL SUB-Q SCH ×4 (03:57→18:19)
[2020-09-07] MEDS: SODIUM CHLORIDE 0.9% 1000 ML 1,000 ML IV SCH ×2 (03:57→23:10)
[2020-09-07] MEDS: LEVOTHYROXINE 100 MCG INJ IV SCH (05:03)
--- NOTE | 2020-09-07 09:20 | Progress Note ---
Assessment and Plan Assessment and plan: Acute toxic metabolic encephalopathy: Possibly secondary to infection versus decreased renal function. Extensive skull base meningioma GI bleed/hematochezia. Endoscopic evaluation revealed gastric ulcer. No active bleeding Gastric ulcer. As above. UTI: Urine and blood cultures negative. Continue cefepime per ID recommendation Sepsis: Etiology secondary to above. Acute hypoxic respiratory failure: Currently on 3 L nasal cannula. Unclear if she has discharged on oxygen from bradycardia when she had Covid. 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 D-dimer noted to be 2409.7 and thus empirically started on therapeutic dose anticoagulation. PAWAN: Renally dose medications. 08/24/2020. Patient still mildly confused. However, I suspect patient has underlying Alzheimer's dementia and this is her baseline. I discussed plan of care and altered mentation with sister at [phone]. Patient will need DME of hospital bed and oxygen for discharge home. Await physical therapy recommendations. 08/25/2020. Patient still lethargic and confused. Patient receiving hydrocortisone 50 mg IV twice daily for adrenal insufficiency. Check B12, folate and ammonia levels. Neurology consultation pending. Continue supplemental oxygen to maintain sats greater than 92%. 08/26/2020. Encephalopathy likely secondary to toxic metabolic causes in the setting of leukocytosis, improving uremia, renal insufficiency, covid-19, underlying uti. Check CT head without contrast and EEG per neurology recommendations. However may need csf evaluation if brain imaging and eeg are unremarkable and pt continues to remain encephalopathic. Follow-up cortisol levels and T3-T4. 08/27/2020. Patient remains lethargic and confused. Encephalopathy is persistent and likely secondary to toxic metabolic causes from sepsis, renal insufficiency/uremia, COVID-[address] scan of the head found to be negative. Await EEG. Consider CSF evaluation if EEG unremarkable. Consult GI for further evaluation of hematochezia/GI bleed. Continue Protonix 40 mg IV twice daily. Transfuse for hemoglobin less than 7. Continue to monitor serial CBC. Lovenox discontinued which was empirically started for elevated D-dimer. Patient does have a history of chronic steroids for Gove's disease. Decrease IV hydrocortisone. Follow-up cortisol levels and T3-T4. I updated the sister and family at [phone]. 08/28/2020. Follow-up EEG per neurology. GI reports if signs of hemodynamic changes, we will proceed with stat bleeding scan. Hemoglobin has dropped to 6.8. Type and cross and transfuse 2 units. Continue to hold anticoagulation. Continue Protonix 40 mg IV twice daily. Nursing reports inability to place NG tube. Place PICC line and start TPN. Dietitian consulted. ? NG tube placement under fluoroscopy. Patient may need PEG tube placement. 08/29/2020. Patient is s/p 3 units PRBCs. Hemoglobin has stabilized to 11.5. Continue to trend and follow serial H/H. Patient remains hemodynamically stable. If patient has a change, we will proceed with stat bleeding scan. GI following. Continue Protonix 40 mg IV twice daily. Continue to hold anticoagulation. Nursing reports inability to place NG tube. PICC line placed to initiate TPN. Dietitian consulted. ? NG tube placement under fluoroscopy. Patient may need PEG tube placement. 08/30/2020. Hemoglobin remained stable. Patient is on TPN and will not be discharged on TPN. NG tube could not be placed as per RN.. Awaiting EEG to rule out any seizures. If no etiology found, patient will benefit from a PEG placement as she has advanced dementia. Continue to hold anticoagulation due to recent GI bleed. GI to reevaluate for PEG placement. 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 Not clear if this is baseline. Need to retrieve her records from previous hospitalization. Neurosurgery consulted for evaluation. 09/01/2020. She is remains confused. Neurology evaluation appreciated. No intervention for brain mass. She is on hydrocortisone for hypopituitary function. Will adjust based on cortisol levels. She will need to have PEG placement for feeds ultimately as she will not be on TPN for a long time. Will reconsult GI for NG tube placement. 09/02. Plan for PEG placement today. She is awake and alert to person only. Vitals stable. 09/03. Had EGD which showed gastritis. Patient will need to have a PEG placement by other means-IR or surgery as per GI. Now on PPI twice daily. Biopsy from gastric ulcer sent. She remains on TPN. Plan to discuss PEG placement IR or surgery. Plan for LP as well. 09/04. Surgery has been consulted for PEG placement. COVID-19 test sent. She remains on TPN. LP still pending 09/05. Patient is awake today but confused. COVID-19 test remains positive. Patients PEG placement may be held for now as per surgery continue Covid infection resolved. She remains on TPN. LP still pending. 09/06. Patient remains confused. COVID-19 test remains positive. Patients PEG placement may be held for now as per surgery continue Covid infection resolved. She remains on TPN. LP still pending. 09/07. Surgery completed laparoscopic-assisted PEG tube placement. Advance tube feeding per dietitian/communication spec recommendations. Patient has had optimal rate control without use of significant AV yoan blocking therapy which suggests underlying conduction system disease per cardiology. Cardiology does not recommend further use of long-term anticoagulation in the setting of recent GI bleed, anemia, AMS and age. I will call the sister to update her regarding care but no answer. Message left. History Interval history: No new issues Hospitalist Physical - Constitutional Vitals: Temp Pulse Resp BP Pulse Ox 97.4 F L 80 16 148/57 100 09/07/20 05:16 09/07/20 05:16 09/07/20 05:16 09/07/20 05:16 09/07/20 05:16 General appearance: Present: no acute distress, well-nourished, other (Lethargic and confused) - EENT Eyes: Present: PERRL, EOM intact ENT: hearing intact, clear oral mucosa, dentition normal - Neck Neck: Present: supple, normal ROM - Respiratory Respiratory effort: normal Respiratory: bilateral: CTA - Cardiovascular Rhythm: regular Heart Sounds: Present: S1 & S2. Absent: gallop, rub - Extremities Extremities: no ischemia, No edema, Full ROM - Abdominal General gastrointestinal: soft, non-tender, non-distended, normal bowel sounds - Integumentary Integumentary: Present: clear, warm, dry - Neurologic Neurologic: CNII-XII intact, moves all extremities HEART Score - HEART Score Troponin: Troponin T 0.075 ng/mL (0.00-0.029) H 08/18/20 18:25 Troponin: 1-3x normal limit - Critical Actions Critical Actions: 4-6 pts:12-16.6% risk of adverse cardiac event. Should be admitted Results - Labs CBC & Chem 7: 09/01/20 Unknown 09/06/20 05:24 Labs: Laboratory Last Values WBC 17.3 K/mm3 (4.5-11.0) H 08/31/20 06:20 RBC 3.76 M/mm3 (3.65-5.03) 08/31/20 06:20 Hgb 10.8 gm/dl (10.1-14.3) 08/31/20 06:20 Hct 32.7 % (30.3-42.9) 08/31/20 06:20 MCV 87 fl (79-97) 08/31/20 06:20 MCH 29 pg (28-32) 08/31/20 06:20 MCHC 33 % (30-34) 08/31/20 06:20 RDW 15.6 % (13.2-15.2) H 08/31/20 06:20 Plt Count 124 K/mm3 (140-440) L 09/01/20 Unknown Lymph % (Auto) 9.5 % (13.4-35.0) L 08/30/20 05:35 [place] % (Auto) 4.8 % (0.0-7.3) 08/30/20 05:35 Eos % (Auto) 0.1 % (0.0-4.3) 08/30/20 05:35 Baso % (Auto) 0.1 % (0.0-1.8) 08/30/20 05:35 Lymph # (Auto) 2.1 K/mm3 (1.2-5.4) 08/30/20 05:35 [place] # (Auto) 1.0 K/mm3 (0.0-0.8) H 08/30/20 05:35 Eos # (Auto) 0.0 K/mm3 (0.0-0.4) 08/30/20 05:35 Baso # (Auto) 0.0 K/mm3 (0.0-0.1) 08/30/20 05:35 Add Manual Diff Complete 08/31/20 06:20 Total Counted 100 08/31/20 06:20 Seg Neutrophils % 85.5 % (40.0-70.0) H 08/30/20 05:35 Seg Neuts % (Manual) 87.0 % (40.0-70.0) H 08/31/20 06:20 Band Neutrophils % 1.0 % 08/31/20 06:20 Lymphocytes % (Manual) 5.0 % (13.4-35.0) L 08/31/20 06:20 Reactive Lymphs % (Man) 1.0 % 08/28/20 10:07 Monocytes % (Manual) 5.0 % (0.0-7.3) 08/31/20 06:20 Metamyelocytes % 2.0 % 08/31/20 06:20 Nucleated RBC % Not Reportable 08/31/20 06:20 Seg Neutrophils # 18.7 K/mm3 (1.8-7.7) H 08/30/20 05:35 Seg Neutrophils # Man 15.1 K/mm3 (1.8-7.7) H 08/31/20 06:20 Band Neutrophils # 0.2 K/mm3 08/31/20 06:20 Lymphocytes # (Manual) 0.9 K/mm3 (1.2-5.4) L 08/31/20 06:20 Abs React Lymphs (Man) 0.0 K/mm3 08/31/20 06:20 Monocytes # (Manual) 0.9 K/mm3 (0.0-0.8) H 08/31/20 06:20 Eosinophils # (Manual) 0.0 K/mm3 (0.0-0.4) 08/31/20 06:20 Basophils # (Manual) 0.0 K/mm3 (0.0-0.1) 08/31/20 06:20 Metamyelocytes # 0.3 K/mm3 08/31/20 06:20 Myelocytes # 0.0 K/mm3 08/31/20 06:20 Promyelocytes # 0.0 K/mm3 08/31/20 06:20 Blast Cells # 0.0 K/mm3 08/31/20 06:20 WBC Morphology Not Reportable 08/31/20 06:20 Hypersegmented Neuts Not Reportable 08/31/20 06:20 Hyposegmented Neuts Not Reportable 08/31/20 06:20 Hypogranular Neuts Not Reportable 08/31/20 06:20 Smudge Cells Not Reportable 08/31/20 06:20 Toxic Granulation Not Reportable 08/31/20 06:20 Toxic Vacuolation Not Reportable 08/31/20 06:20 Dohle Bodies Not Reportable 08/31/20 06:20 Pelger-Huet Anomaly Not Reportable 08/31/20 06:20 Marie Rods Not Reportable 08/31/20 06:20 Platelet Estimate Consistent w auto 08/31/20 06:20 Clumped Platelets Not Reportable 08/31/20 06:20 Plt Clumps, EDTA Not Reportable 08/31/20 06:20 Large Platelets Not Reportable 08/31/20 06:20 Giant Platelets Not Reportable 08/31/20 06:20 Platelet Satelliting Not Reportable 08/31/20 06:20 Plt Morphology Comment Not Reportable 08/31/20 06:20 RBC Morphology Not Reportable 08/31/20 06:20 Dimorphic RBCs Not Reportable 08/31/20 06:20 Polychromasia Not Reportable 08/31/20 06:20 Hypochromasia Not Reportable 08/31/20 06:20 Poikilocytosis Not Reportable 08/31/20 06:20 Anisocytosis 1+ 08/31/20 06:20 Microcytosis Not Reportable 08/31/20 06:20 Macrocytosis Not Reportable 08/31/20 06:20 Spherocytes Not Reportable 08/31/20 06:20 Pappenheimer Bodies Not Reportable 08/31/20 06:20 Sickle Cells Not Reportable 08/31/20 06:20 Target Cells Not Reportable 08/31/20 06:20 Tear Drop Cells Not Reportable 08/31/20 06:20 Ovalocytes Not Reportable 08/31/20 06:20 Helmet Cells Not Reportable 08/31/20 06:20 [place]ann Bodies Not Reportable 08/31/20 06:20 [place] Rings Not Reportable 08/31/20 06:20 Darren Cells Not Reportable 08/31/20 06:20 Bite Cells Not Reportable 08/31/20 06:20 Crenated Cell Not Reportable 08/31/20 06:20 Elliptocytes Not Reportable 08/31/20 06:20 Acanthocytes (Spur) Not Reportable 08/31/20 06:20 Rouleaux Not Reportable 08/31/20 06:20 Hemoglobin C Crystals Not Reportable 08/31/20 06:20 Schistocytes Not Reportable 08/31/20 06:20 Malaria parasites Not Reportable 08/31/20 06:20 Payam Bodies Not Reportable 08/31/20 06:20 Hem Pathologist Commnt No 08/31/20 06:20 PT 13.1 Sec. (12.2-14.9) 09/01/20 Unknown INR 1.01 (0.87-1.13) 09/01/20 Unknown APTT 29.7 Sec. (24.2-36.6) 09/01/20 Unknown D-Dimer 2409.74 ng/mlDDU (0-234) H 08/18/20 Unknown Sodium 140 mmol/L (137-145) 09/06/20 05:24 Potassium 3.7 mmol/L (3.6-5.0) 09/06/20 05:24 Chloride 100.4 mmol/L (98-107) 09/06/20 05:24 Carbon Dioxide 32 mmol/L (22-30) H 09/06/20 05:24 Anion Gap 11 mmol/L 09/06/20 05:24 BUN 23 mg/dL (7-17) H 09/06/20 05:24 Creatinine 0.4 mg/dL (0.6-1.2) L 09/06/20 05:24 Estimated GFR > 60 ml/min 09/06/20 05:24 BUN/Creatinine Ratio 58 % 09/06/20 05:24 Glucose 238 mg/dL (65-100) H 09/06/20 05:24 POC Glucose 279 mg/dL (70-105) H 09/07/20 06:36 Lactic Acid 1.00 mmol/L (0.7-2.0) 08/18/20 18:25 Calcium 8.2 mg/dL (8.4-10.2) L 09/06/20 05:24 Phosphorus 3.30 mg/dL (2.5-4.5) 09/06/20 05:24 Magnesium 2.00 mg/dL (1.7-2.3) 09/06/20 05:24 Ferritin 1950.0 ng/mL (10.0-200.0) H 08/18/20 15:35 Total Bilirubin 0.50 mg/dL (0.1-1.2) 09/04/20 05:57 AST 11 units/L (5-40) 09/04/20 05:57 ALT 8 units/L (7-56) 09/04/20 05:57 Alkaline Phosphatase 59 units/L (35-129) 09/04/20 05:57 Ammonia 32.0 umol/L (25-60) 08/25/20 09:06 Lactate Dehydrogenase 228 units/L (91-180) H 08/18/20 15:35 Total Creatine Kinase 164 units/L (30-135) H 08/22/20 19:44 Troponin T 0.075 ng/mL (0.00-0.029) H 08/18/20 18:25 C-Reactive Protein 35.60 mg/dL (0.00-1.30) H 08/18/20 15:35 Total Protein 4.2 g/dL (6.3-8.2) L 09/04/20 05:57 Albumin 2.5 g/dL (3.9-5) L 09/04/20 05:57 Albumin/Globulin Ratio 1.5 % 09/04/20 05:57 Triglycerides 70 mg/dL (2-149) 08/31/20 06:20 Cholesterol 79 mg/dL (50-199) 08/18/20 18:25 LDL Cholesterol Direct 42 mg/dL (50-130) L 08/18/20 18:25 HDL Cholesterol 23 mg/dL (40-59) L 08/18/20 18:25 Cholesterol/HDL Ratio 3.43 % 08/18/20 18:25 Vitamin B12 721.0 pg/mL (211-911) 08/25/20 09:06 Folate 8.34 ng/mL (7.3-26.0) 08/25/20 09:06 Procalcitonin 4.00 ng/mL (<0.15) 08/18/20 15:35 TSH 0.056 mlU/mL (0.270-4.200) L 08/24/20 17:02 Free T4 1.59 ng/dL (0.76-1.46) H 08/26/20 10:22 Free T3 Index 1.2 pg/mL (2.3-4.2) L 08/26/20 10:22 Total Cortisol 37.6 mcg/dL () 09/02/20 05:30 Urine Color Jacqueline (Yellow) 08/18/20 Unknown Urine Turbidity Hazy (Clear) 08/18/20 Unknown Urine pH 5.0 (5.0-7.0) 08/18/20 Unknown Ur Specific [place] 1.020 (1.003-1.030) 08/18/20 Unknown Urine Protein 30 mg/dl mg/dL (Negative) 08/18/20 Unknown Urine Glucose (UA) 50 mg/dL (Negative) 08/18/20 Unknown Urine Ketones Neg mg/dL (Negative) 08/18/20 Unknown Urine Blood Neg (Negative) 08/18/20 Unknown Urine Nitrite Neg (Negative) 08/18/20 Unknown Urine Bilirubin Neg (Negative) 08/18/20 Unknown Urine Urobilinogen 4.0 mg/dL (<2.0) 08/18/20 Unknown Ur Leukocyte Esterase Tr (Negative) 08/18/20 Unknown Urine WBC (Auto) 41.0 /HPF (0.0-6.0) H 08/18/20 Unknown Urine RBC (Auto) 4.0 /HPF (0.0-6.0) 08/18/20 Unknown U Epithel Cells (Auto) 1.0 /HPF (0-13.0) 08/18/20 Unknown Urine Mucus 3+ /HPF 08/18/20 Unknown Random Vancomycin 9.8 ug/mL (0-40.0) 08/19/20 19:02 Coronavirus (PCR) Positive (Negative) A 09/04/20 10:27 Blood Type O POSITIVE 08/27/20 20:44 Antibody Screen Negative 08/27/20 20:44 Crossmatch See Detail 08/27/20 20:44 [place]/IV: Voiding Method Indwelling Catheter IV Catheter Type [Left Triple Lumen Cath Internal Jugular] IV Catheter Type [Left] CVL Active Medications - Current Medications Current Medications: Generic Name Dose Route Start Last Admin Trade Name Freq PRN Reason Stop Dose Admin Lipase/Protease/Amylase 1 each 09/06/20 19:27 Lipase 10,500/Protease 25,000/Amylase 43,750 (Units) Dr Fernandez FEEDTUBE PRN PRN For Clogged Feeding Tube Atropine Sulfate 1 mg 08/23/20 16:56 Atropine 1 Mg/Ml Vial IV PRN PRN Bradycardia Clonidine HCl 0.2 mg 08/31/20 22:00 08/31/20 23:35 Clonidine Tts 0.2 Mg/24 Hr Patch TD 0.2 mg We BARBARA Administration Hydralazine HCl 5 mg 08/31/20 21:22 09/06/20 23:43 Hydralazine 20 Mg/1 Ml Inj IV 5 mg Q4H PRN Administration Blood Pressure Hydrocortisone Sodium Succinate 10 mg 08/27/20 10:07 09/06/20 21:48 Hydrocortisone Sod Succ 100 Mg/2 Ml Vial IV 10 mg Q12HR BARBARA Administration Levetiracetam 750 mg/ Dextrose 107.5 mls @ 400 mls/hr 08/24/20 12:00 09/06/20 21:47 IV 400 mls/hr Q12HR BARBARA Administration Sodium Chloride 1,000 mls @ 50 mls/hr 09/02/20 14:30 09/07/20 03:57 Nacl 0.9% 1000 Ml IV 50 mls/hr DIRECT BARBARA Administration Amino Acids/Electrolytes/Dextrose 2,016 mls @ 84 mls/hr 09/06/20 20:00 09/06/20 21:46 Tpn Adult IV 09/07/20 19:59 84 mls/hr DAILY@2000 BARBARA Administration Protocol Insulin Glargine 5 units 09/03/20 22:00 09/06/20 23:42 Insulin Glargine 100 Units/Ml SUB-Q 5 units BID BARBARA Administration Insulin Human Lispro 0 unit 09/01/20 10:00 09/07/20 03:57 Insulin Lispro 100 Unit/Ml Vial 3 Ml SUB-Q 3 unit Q6H BARBARA Administration Protocol Levothyroxine Sodium 25 mcg 08/24/20 13:00 09/07/20 05:03 Levothyroxine 100 Mcg Inj IV 25 mcg DAILY@0600 BARBARA Administration Pantoprazole Sodium 40 mg 09/07/20 10:00 Pantoprazole 40 Mg Inj IV QDAY BARBARA Simple Syrup 15 ml 09/06/20 19:27 Simple Syrup 15 Ml FEEDTUBE PRN PRN Hypoglycemia Simple Syrup 30 ml 09/06/20 19:27 Simple Syrup 15 Ml FEEDTUBE PRN PRN Hypoglycemia Sodium Bicarbonate 325 mg 09/06/20 19:27 Sodium Bicarbonate 325 Mg Tab FEEDTUBE PRN PRN For Clogged Feeding Tube Nutrition/Malnutrition Assess - Dietary Evaluation Nutrition/Malnutrition Findings: Nutrition Notes Start: 08/23/20 10:57 Freq: Status: Active Protocol: Document 09/06/20 13:02 ANCELMO (Rec: 09/06/20 13:45 [email or web address] [id number]) Co-Sign 09/06/20 13:02 STEFANIE Nutrition Notes Initial or Follow up Reassessment Current Diagnosis Acute Kidney Injury,Diabetes, Sepsis Other Pertinent Diagnosis Encephalopathy, COVID-19 (+), GIB, UTI, gastric ulcer, gastritis Current Diet TPN at 84 ml/hr Labs/Tests BG 238 Pertinent Medications NS 50ml/hr Solu-Cortef Humalog 2 units Lantus 5 units Height 5 ft 5 in Weight 81.4 kg [place] Body Weight (kg) 56.81 BMI 29.8 Weight Status Appropriate Subjective/Other Information TPN day 10. Per MD note, PEG deferred. Percent of energy/protein needs met: 100%/100% Burn Absent Trauma Absent GI Symptoms None Current % PO Negligible Minimum of two criteria No Energy Intake (severe) < or equal to 50% Estimated Energy Requirement > or equal to 5 days #2 Nutrition Diagnosis Increased nutrient needs ( specify in comment below) Diagnosis Progress(for reassessment Continues documentation) #1 Nutrition Diagnosis Inadequate oral intake Diagnosis Progress(for reassessment Continues documentation) Is patient on ventilator? No Is Patient Ambulatory and/or Out of Bed No REE-([facility]-confined to bed) 1536.744 Kcal/Kg value to use for calculation 18 Approximate Energy Requirements Using 1465 kcal/Kg Calculation Used for Recommendations Kcal/kg Additional Notes Pro needs 1.25-1.5 g/k- 111 g/day Fluid needs 1ml/kcal Nutrition Intervention Nutrition Support: TPN at 84 ml/hr. Osmolality: 1316. Dextrose: 12.9% MTE. Kcal 1,224 Protein (gm) 85 Carbohydrates (gm) 260 Fat (gm) 0 Fluid (mL) 2,016 Goal #1 PN to meet nutrient needs as best possible Goal #2 PEG placement Anticipated Discharge Needs: TF via PEG Follow-Up By: 09/07/20 Additional Comments Labs: none ordered. f/u for PEG placement
--- NOTE | 2020-09-07 09:39 | Progress Note ---
Assessment and Plan Preoperative cardiovascular exam Paroxysmal atrial fibrillation rate control has been optimal without use of significant AV yoan blocking therapy, suggesting underlying conduction system disease. further use of long-term anticoagulation will not be recommended at this time, in the setting of the recent GI bleed and severe anemia. 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 Advanced dementia Conservative cardiac management. Subjective Date of service: 09/07/20 Principal diagnosis: Acute encephalopathy Interval history: 1 day post placement of a gastrostomy feeding tube. No interval cardiac changes. Stable sinus rhythm on telemetry. Objective Vital Signs Temp Pulse Pulse Resp BP BP Pulse Ox 09/07/20 05:16 97.4 F L 80 16 148/57 100 09/06/20 23:43 197/61 09/06/20 23:03 97.2 F L 74 20 197/61 99 09/06/20 22:00 74 20 99 09/06/20 15:32 97.4 F L 91 H 20 157/86 99 09/06/20 14:42 98.1 F 90 15 175/77 100 09/06/20 14:27 90 16 152/79 100 09/06/20 14:22 92 H 22 175/89 100 09/06/20 14:17 93 H 20 161/72 100 09/06/20 14:12 97.8 F 106 H 30 H 170/90 100 09/06/20 12:40 176/72 09/06/20 12:35 69 176/72 09/06/20 11:08 174/60 09/06/20 10:09 97.8 F 73 16 187/75 100 09/06/20 10:00 69 98 - Physical Examination Narrative exam: Deferred due to isolation protocol. Cardiac: Positive: Reg Rate and Rhythm
[2020-09-07] MEDS ORDERED: PANTOPRAZOLE 40 MG INJ IV SCH (10:00)
[2020-09-07] MEDS: HYDROCORTISONE SOD SUCC 100 MG/2 ML VIAL IV SCH (10:29)
[2020-09-07] MEDS: levETIRAcetam 750 MG in DEXTROSE 5% IN WATER 100 ML IV SCH (10:30)
[2020-09-07] MEDS: INSULIN GLARGINE 100 UNITS/ML SUB-Q SCH ×2 (10:30→22:48)
--- NOTE | 2020-09-07 10:42 | Progress Note ---
Assessment and Plan POD#1 s/p lap assisted PEG placement. Afebrile and stable. Can start tube feeds today per dietitian and slowly increase to goal rate. No further surgical intervention indicated at this time. Subjective Date of service: 09/07/20 Narrative: no acute events overnight. Objective Vital Signs - 12hr 09/06/20 09/06/20 09/07/20 23:03 23:43 05:16 Temperature 97.2 F L 97.4 F L Pulse Rate 74 80 Respiratory 20 16 Rate Blood Pressure 197/61 197/61 148/57 O2 Sat by Pulse 99 100 Oximetry - General physical appearance well developed, no distress, no pain - Respiratory normal expansion - Abdomen other (g-tube in place. dressing dry. non-tender to touch. ) - Labs 09/01/20 Unknown 09/06/20 05:24
[2020-09-07] MEDS ORDERED: ONDANSETRON 4 MG/2 ML INJ IV PRN (19:17)
[2020-09-07] MEDS ORDERED: TOTAL PARENTERAL NUTRITION 2,016 ML IV SCH (20:00)
[2020-09-07] MEDS: levETIRAcetam 500 MG/5 ML ORAL LIQD FEEDTUBE SCH (22:48)
[2020-09-07] MEDS: cloNIDine TTS 0.2 MG/24 HR PATCH TD SCH (22:48)
[2020-09-07] MEDS: HYDROCORTISONE 10 MG TAB FEEDTUBE SCH (22:48)
[2020-09-07] MEDS: ACETAMINOPHEN 325 MG/10.15 ML ORAL LIQD UNIT DOSE FEEDTUBE PRN (22:50)
[2020-09-08] MEDS: INSULIN LISPRO 100 UNIT/ML VIAL 3 mL SUB-Q SCH ×4 (00:05→17:49)
[2020-09-08] MEDS ORDERED: DEXTROSE 50% IN WATER (25GM) 50 ML SYRINGE IV ONE ×3 (05:00→05:08)
[2020-09-08 06:06] LABS: Calcium 7.9 mg/dL (8.4-10.2)
[2020-09-08] MEDS: LEVOTHYROXINE 50 MCG TAB FEEDTUBE SCH (06:06)
[2020-09-08 07:10] LABS: Bacteria,Urine 4+ /HPF (Negative); Bilirubin,Urine NEG (Negative); Blood,Urine LG (Negative); Color,Urine Yellow (Yellow); Mucus,Urine 1+ /HPF; Urobilinogen,Urine < 2.0 mg/dL (<2.0)
[2020-09-08 07:12] LABS: RBC,Urine > 182.0 /HPF (0.0-6.0); WBC,Urine > 182.0 /HPF (0.0-6.0)
[2020-09-08] MEDS: LANSOPRAZOLE 30 MG SOLUTAB FEEDTUBE SCH (09:18)
[2020-09-08] MEDS: levETIRAcetam 500 MG/5 ML ORAL LIQD FEEDTUBE SCH ×2 (09:18→21:15)
[2020-09-08] MEDS: INSULIN GLARGINE 100 UNITS/ML SUB-Q SCH ×2 (09:19→23:33)
[2020-09-08] MEDS: HYDROCORTISONE 10 MG TAB FEEDTUBE SCH ×2 (09:19→21:15)
--- NOTE | 2020-09-08 09:21 | Progress Note ---
Assessment and Plan Assessment and plan: Acute toxic metabolic encephalopathy: Possibly secondary to infection versus decreased renal function. Extensive skull base meningioma GI bleed/hematochezia. Endoscopic evaluation revealed gastric ulcer. No active bleeding Gastric ulcer. As above. UTI: Urine and blood cultures negative. Continue cefepime per ID recommendation Sepsis: Etiology secondary to above. Acute hypoxic respiratory failure: Currently on 3 L nasal cannula. Unclear if she has discharged on oxygen from bradycardia when she had Covid. 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 D-dimer noted to be 2409.7 and thus empirically started on therapeutic dose anticoagulation. PAWAN: Renally dose medications. 08/24/2020. Patient still mildly confused. However, I suspect patient has underlying Alzheimer's dementia and this is her baseline. I discussed plan of care and altered mentation with sister at [phone]. Patient will need DME of hospital bed and oxygen for discharge home. Await physical therapy recommendations. 08/25/2020. Patient still lethargic and confused. Patient receiving hydrocortisone 50 mg IV twice daily for adrenal insufficiency. Check B12, folate and ammonia levels. Neurology consultation pending. Continue supplemental oxygen to maintain sats greater than 92%. 08/26/2020. Encephalopathy likely secondary to toxic metabolic causes in the setting of leukocytosis, improving uremia, renal insufficiency, covid-19, underlying uti. Check CT head without contrast and EEG per neurology recommendations. However may need csf evaluation if brain imaging and eeg are unremarkable and pt continues to remain encephalopathic. Follow-up cortisol levels and T3-T4. 08/27/2020. Patient remains lethargic and confused. Encephalopathy is persistent and likely secondary to toxic metabolic causes from sepsis, renal insufficiency/uremia, COVID-[address] scan of the head found to be negative. Await EEG. Consider CSF evaluation if EEG unremarkable. Consult GI for further evaluation of hematochezia/GI bleed. Continue Protonix 40 mg IV twice daily. Transfuse for hemoglobin less than 7. Continue to monitor serial CBC. Lovenox discontinued which was empirically started for elevated D-dimer. Patient does have a history of chronic steroids for Chariton's disease. Decrease IV hydrocortisone. Follow-up cortisol levels and T3-T4. I updated the sister and family at [phone]. 08/28/2020. Follow-up EEG per neurology. GI reports if signs of hemodynamic changes, we will proceed with stat bleeding scan. Hemoglobin has dropped to 6.8. Type and cross and transfuse 2 units. Continue to hold anticoagulation. Continue Protonix 40 mg IV twice daily. Nursing reports inability to place NG tube. Place PICC line and start TPN. Dietitian consulted. ? NG tube placement under fluoroscopy. Patient may need PEG tube placement. 08/29/2020. Patient is s/p 3 units PRBCs. Hemoglobin has stabilized to 11.5. Continue to trend and follow serial H/H. Patient remains hemodynamically stable. If patient has a change, we will proceed with stat bleeding scan. GI following. Continue Protonix 40 mg IV twice daily. Continue to hold anticoagulation. Nursing reports inability to place NG tube. PICC line placed to initiate TPN. Dietitian consulted. ? NG tube placement under fluoroscopy. Patient may need PEG tube placement. 08/30/2020. Hemoglobin remained stable. Patient is on TPN and will not be discharged on TPN. NG tube could not be placed as per RN.. Awaiting EEG to rule out any seizures. If no etiology found, patient will benefit from a PEG placement as she has advanced dementia. Continue to hold anticoagulation due to recent GI bleed. GI to reevaluate for PEG placement. 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 Not clear if this is baseline. Need to retrieve her records from previous hospitalization. Neurosurgery consulted for evaluation. 09/01/2020. She is remains confused. Neurology evaluation appreciated. No intervention for brain mass. She is on hydrocortisone for hypopituitary function. Will adjust based on cortisol levels. She will need to have PEG placement for feeds ultimately as she will not be on TPN for a long time. Will reconsult GI for NG tube placement. 09/02. Plan for PEG placement today. She is awake and alert to person only. Vitals stable. 09/03. Had EGD which showed gastritis. Patient will need to have a PEG placement by other means-IR or surgery as per GI. Now on PPI twice daily. Biopsy from gastric ulcer sent. She remains on TPN. Plan to discuss PEG placement IR or surgery. Plan for LP as well. 09/04. Surgery has been consulted for PEG placement. COVID-19 test sent. She remains on TPN. LP still pending 09/05. Patient is awake today but confused. COVID-19 test remains positive. Patients PEG placement may be held for now as per surgery continue Covid infection resolved. She remains on TPN. LP still pending. 09/06. Patient remains confused. COVID-19 test remains positive. Patients PEG placement may be held for now as per surgery continue Covid infection resolved. She remains on TPN. LP still pending. 09/07. Surgery completed laparoscopic-assisted PEG tube placement. Advance tube feeding per dietitian/golf technician recommendations. Patient has had optimal rate control without use of significant AV yoan blocking therapy which suggests underlying conduction system disease per cardiology. Cardiology does not recommend further use of long-term anticoagulation in the setting of recent GI bleed, anemia, AMS and age. I will call the sister to update her regarding care but no answer. Message left. 09/08. Patient tolerating PEG tube feedings. Awaiting LP. Patient remains confused. Continue hydrocortisone for hypopituitary function. Will discuss with neurology further plans . History Interval history: No new issues Hospitalist Physical - Constitutional Vitals: Temp Pulse Resp BP Pulse Ox 97.0 F L 86 18 115/41 98 09/08/20 05:01 09/08/20 05:01 09/08/20 05:01 09/08/20 05:01 09/08/20 05:01 General appearance: Present: no acute distress, well-nourished, other (Lethargic and confused) - EENT Eyes: Present: PERRL, EOM intact ENT: hearing intact, clear oral mucosa, dentition normal - Neck Neck: Present: supple, normal ROM - Respiratory Respiratory effort: normal Respiratory: bilateral: CTA - Cardiovascular Rhythm: regular Heart Sounds: Present: S1 & S2. Absent: gallop, rub - Extremities Extremities: no ischemia, No edema, Full ROM - Abdominal General gastrointestinal: soft, non-tender, non-distended, normal bowel sounds - Integumentary Integumentary: Present: clear, warm, dry - Neurologic Neurologic: CNII-XII intact, moves all extremities HEART Score - HEART Score Troponin: Troponin T 0.075 ng/mL (0.00-0.029) H 08/18/20 18:25 Troponin: 1-3x normal limit - Critical Actions Critical Actions: 4-6 pts:12-16.6% risk of adverse cardiac event. Should be admitted Results - Labs CBC & Chem 7: 09/01/20 Unknown 09/08/20 04:52 Labs: Laboratory Last Values WBC 17.3 K/mm3 (4.5-11.0) H 08/31/20 06:20 RBC 3.76 M/mm3 (3.65-5.03) 08/31/20 06:20 Hgb 10.8 gm/dl (10.1-14.3) 08/31/20 06:20 Hct 32.7 % (30.3-42.9) 08/31/20 06:20 MCV 87 fl (79-97) 08/31/20 06:20 MCH 29 pg (28-32) 08/31/20 06:20 MCHC 33 % (30-34) 08/31/20 06:20 RDW 15.6 % (13.2-15.2) H 08/31/20 06:20 Plt Count 124 K/mm3 (140-440) L 09/01/20 Unknown Lymph % (Auto) 9.5 % (13.4-35.0) L 08/30/20 05:35 Jenkins % (Auto) 4.8 % (0.0-7.3) 08/30/20 05:35 Eos % (Auto) 0.1 % (0.0-4.3) 08/30/20 05:35 Baso % (Auto) 0.1 % (0.0-1.8) 08/30/20 05:35 Lymph # (Auto) 2.1 K/mm3 (1.2-5.4) 08/30/20 05:35 Jenkins # (Auto) 1.0 K/mm3 (0.0-0.8) H 08/30/20 05:35 Eos # (Auto) 0.0 K/mm3 (0.0-0.4) 08/30/20 05:35 Baso # (Auto) 0.0 K/mm3 (0.0-0.1) 08/30/20 05:35 Add Manual Diff Complete 08/31/20 06:20 Total Counted 100 08/31/20 06:20 Seg Neutrophils % 85.5 % (40.0-70.0) H 08/30/20 05:35 Seg Neuts % (Manual) 87.0 % (40.0-70.0) H 08/31/20 06:20 Band Neutrophils % 1.0 % 08/31/20 06:20 Lymphocytes % (Manual) 5.0 % (13.4-35.0) L 08/31/20 06:20 Reactive Lymphs % (Man) 1.0 % 08/28/20 10:07 Monocytes % (Manual) 5.0 % (0.0-7.3) 08/31/20 06:20 Metamyelocytes % 2.0 % 08/31/20 06:20 Nucleated RBC % Not Reportable 08/31/20 06:20 Seg Neutrophils # 18.7 K/mm3 (1.8-7.7) H 08/30/20 05:35 Seg Neutrophils # Man 15.1 K/mm3 (1.8-7.7) H 08/31/20 06:20 Band Neutrophils # 0.2 K/mm3 08/31/20 06:20 Lymphocytes # (Manual) 0.9 K/mm3 (1.2-5.4) L 08/31/20 06:20 Abs React Lymphs (Man) 0.0 K/mm3 08/31/20 06:20 Monocytes # (Manual) 0.9 K/mm3 (0.0-0.8) H 08/31/20 06:20 Eosinophils # (Manual) 0.0 K/mm3 (0.0-0.4) 08/31/20 06:20 Basophils # (Manual) 0.0 K/mm3 (0.0-0.1) 08/31/20 06:20 Metamyelocytes # 0.3 K/mm3 08/31/20 06:20 Myelocytes # 0.0 K/mm3 08/31/20 06:20 Promyelocytes # 0.0 K/mm3 08/31/20 06:20 Blast Cells # 0.0 K/mm3 08/31/20 06:20 WBC Morphology Not Reportable 08/31/20 06:20 Hypersegmented Neuts Not Reportable 08/31/20 06:20 Hyposegmented Neuts Not Reportable 08/31/20 06:20 Hypogranular Neuts Not Reportable 08/31/20 06:20 Smudge Cells Not Reportable 08/31/20 06:20 Toxic Granulation Not Reportable 08/31/20 06:20 Toxic Vacuolation Not Reportable 08/31/20 06:20 Dohle Bodies Not Reportable 08/31/20 06:20 Pelger-Huet Anomaly Not Reportable 08/31/20 06:20 Marie Rods Not Reportable 08/31/20 06:20 Platelet Estimate Consistent w auto 08/31/20 06:20 Clumped Platelets Not Reportable 08/31/20 06:20 Plt Clumps, EDTA Not Reportable 08/31/20 06:20 Large Platelets Not Reportable 08/31/20 06:20 Giant Platelets Not Reportable 08/31/20 06:20 Platelet Satelliting Not Reportable 08/31/20 06:20 Plt Morphology Comment Not Reportable 08/31/20 06:20 RBC Morphology Not Reportable 08/31/20 06:20 Dimorphic RBCs Not Reportable 08/31/20 06:20 Polychromasia Not Reportable 08/31/20 06:20 Hypochromasia Not Reportable 08/31/20 06:20 Poikilocytosis Not Reportable 08/31/20 06:20 Anisocytosis 1+ 08/31/20 06:20 Microcytosis Not Reportable 08/31/20 06:20 Macrocytosis Not Reportable 08/31/20 06:20 Spherocytes Not Reportable 08/31/20 06:20 Pappenheimer Bodies Not Reportable 08/31/20 06:20 Sickle Cells Not Reportable 08/31/20 06:20 Target Cells Not Reportable 08/31/20 06:20 Tear Drop Cells Not Reportable 08/31/20 06:20 Ovalocytes Not Reportable 08/31/20 06:20 Helmet Cells Not Reportable 08/31/20 06:20 [place] Bodies Not Reportable 08/31/20 06:20 [place] Rings Not Reportable 08/31/20 06:20 Darren Cells Not Reportable 08/31/20 06:20 Bite Cells Not Reportable 08/31/20 06:20 Crenated Cell Not Reportable 08/31/20 06:20 Elliptocytes Not Reportable 08/31/20 06:20 Acanthocytes (Spur) Not Reportable 08/31/20 06:20 Rouleaux Not Reportable 08/31/20 06:20 Hemoglobin C Crystals Not Reportable 08/31/20 06:20 Schistocytes Not Reportable 08/31/20 06:20 Malaria parasites Not Reportable 08/31/20 06:20 Payam Bodies Not Reportable 08/31/20 06:20 Hem Pathologist Commnt No 08/31/20 06:20 PT 13.1 Sec. (12.2-14.9) 09/01/20 Unknown INR 1.01 (0.87-1.13) 09/01/20 Unknown APTT 29.7 Sec. (24.2-36.6) 09/01/20 Unknown D-Dimer 2409.74 ng/mlDDU (0-234) H 08/18/20 Unknown Sodium 143 mmol/L (137-145) 09/08/20 04:52 Potassium 3.9 mmol/L (3.6-5.0) 09/08/20 04:52 Chloride 105.9 mmol/L (98-107) 09/08/20 04:52 Carbon Dioxide 24 mmol/L (22-30) D 09/08/20 04:52 Anion Gap 17 mmol/L 09/08/20 04:52 BUN 59 mg/dL (7-17) H 09/08/20 04:52 Creatinine 1.4 mg/dL (0.6-1.2) H D 09/08/20 04:52 Estimated GFR 44 ml/min 09/08/20 04:52 BUN/Creatinine Ratio 42 % 09/08/20 04:52 Glucose 36 mg/dL (65-100) L* 09/08/20 04:52 POC Glucose 98 mg/dL (70-105) 09/08/20 06:21 Lactic Acid 1.00 mmol/L (0.7-2.0) 08/18/20 18:25 Calcium 7.9 mg/dL (8.4-10.2) L 09/08/20 04:52 Phosphorus 5.50 mg/dL (2.5-4.5) H 09/08/20 04:52 Magnesium 2.10 mg/dL (1.7-2.3) 09/08/20 04:52 Ferritin 1950.0 ng/mL (10.0-200.0) H 08/18/20 15:35 Total Bilirubin 0.50 mg/dL (0.1-1.2) 09/04/20 05:57 AST 11 units/L (5-40) 09/04/20 05:57 ALT 8 units/L (7-56) 09/04/20 05:57 Alkaline Phosphatase 59 units/L (35-129) 09/04/20 05:57 Ammonia 32.0 umol/L (25-60) 08/25/20 09:06 Lactate Dehydrogenase 228 units/L (91-180) H 08/18/20 15:35 Total Creatine Kinase 164 units/L (30-135) H 08/22/20 19:44 Troponin T 0.075 ng/mL (0.00-0.029) H 08/18/20 18:25 C-Reactive Protein 35.60 mg/dL (0.00-1.30) H 08/18/20 15:35 Total Protein 4.2 g/dL (6.3-8.2) L 09/04/20 05:57 Albumin 2.5 g/dL (3.9-5) L 09/04/20 05:57 Albumin/Globulin Ratio 1.5 % 09/04/20 05:57 Triglycerides 70 mg/dL (2-149) 08/31/20 06:20 Cholesterol 79 mg/dL (50-199) 08/18/20 18:25 LDL Cholesterol Direct 42 mg/dL (50-130) L 08/18/20 18:25 HDL Cholesterol 23 mg/dL (40-59) L 08/18/20 18:25 Cholesterol/HDL Ratio 3.43 % 08/18/20 18:25 Vitamin B12 721.0 pg/mL (211-911) 08/25/20 09:06 Folate 8.34 ng/mL (7.3-26.0) 08/25/20 09:06 Procalcitonin 4.00 ng/mL (<0.15) 08/18/20 15:35 TSH 0.056 mlU/mL (0.270-4.200) L 08/24/20 17:02 Free T4 1.59 ng/dL (0.76-1.46) H 08/26/20 10:22 Free T3 Index 1.2 pg/mL (2.3-4.2) L 08/26/20 10:22 Total Cortisol 37.6 mcg/dL () 09/02/20 05:30 Urine Color Yellow (Yellow) 09/08/20 06:14 Urine Turbidity Turbid (Clear) 09/08/20 06:14 Urine pH 5.0 (5.0-7.0) 09/08/20 06:14 Ur Specific [place] 1.009 (1.003-1.030) 09/08/20 06:14 Urine Protein 100 mg/dl mg/dL (Negative) 09/08/20 06:14 Urine Glucose (UA) Neg mg/dL (Negative) 09/08/20 06:14 Urine Ketones Neg mg/dL (Negative) 09/08/20 06:14 Urine Blood Lg (Negative) 09/08/20 06:14 Urine Nitrite Neg (Negative) 09/08/20 06:14 Urine Bilirubin Neg (Negative) 09/08/20 06:14 Urine Urobilinogen < 2.0 mg/dL (<2.0) 09/08/20 06:14 Ur Leukocyte Esterase Mod (Negative) 09/08/20 06:14 Urine WBC (Auto) > 182.0 /HPF (0.0-6.0) H 09/08/20 06:14 Urine RBC (Auto) > 182.0 /HPF (0.0-6.0) 09/08/20 06:14 U Epithel Cells (Auto) 1.0 /HPF (0-13.0) 08/18/20 Unknown Urine Bacteria (Auto) 4+ /HPF (Negative) 09/08/20 06:14 Urine WBC Clumps 3+ /HPF 09/08/20 06:14 Urine Mucus 1+ /HPF 09/08/20 06:14 Ur Yeast w Hyphae 2+ /HPF 09/08/20 06:14 Urine Yeast (Budding) 2+ /HPF 09/08/20 06:14 Random Vancomycin 9.8 ug/mL (0-40.0) 08/19/20 19:02 Coronavirus (PCR) Positive (Negative) A 09/04/20 10:27 Blood Type O POSITIVE 08/27/20 20:44 Antibody Screen Negative 08/27/20 20:44 Crossmatch See Detail 08/27/20 20:44 [place]/IV: Voiding Method Indwelling Catheter IV Catheter Type [Left Triple Lumen Cath Internal Jugular] IV Catheter Type [Left] CVL Active Medications - Current Medications Current Medications: Generic Name Dose Route Start Last Admin Trade Name Freq PRN Reason Stop Dose Admin Acetaminophen 650 mg 09/07/20 19:17 09/07/20 22:50 Acetaminophen 325 Mg/10.15 Ml Oral Liqd Unit Dose FEEDTUBE 650 mg Q6H PRN Administration Pain, Mild (1-3) Lipase/Protease/Amylase 1 each 09/06/20 19:27 Lipase 10,500/Protease 25,000/Amylase 43,750 (Units) Dr Fernandez FEEDTUBE PRN PRN For Clogged Feeding Tube Atropine Sulfate 1 mg 08/23/20 16:56 Atropine 1 Mg/Ml Vial IV PRN PRN Bradycardia Clonidine HCl 0.2 mg 08/31/20 22:00 09/07/20 22:48 Clonidine Tts 0.2 Mg/24 Hr Patch TD 0.2 mg We BARBARA Administration Hydralazine HCl 5 mg 08/31/20 21:22 09/06/20 23:43 Hydralazine 20 Mg/1 Ml Inj IV 5 mg Q4H PRN Administration Blood Pressure Hydrocortisone Acetate 10 mg 09/07/20 22:00 09/07/20 22:48 Hydrocortisone 10 Mg Tab FEEDTUBE 10 mg Q12HR BARBARA Administration Sodium Chloride 1,000 mls @ 50 mls/hr 09/02/20 14:30 09/07/20 23:10 Nacl 0.9% 1000 Ml IV 50 mls/hr DIRECT BARBARA Administration Amino Acids/Electrolytes/Dextrose 2,016 mls @ 84 mls/hr 09/07/20 20:00 09/07/20 22:47 Tpn Adult IV 09/08/20 19:59 84 mls/hr DAILY@2000 BARBARA Administration Protocol Insulin Glargine 5 units 09/03/20 22:00 09/07/20 22:48 Insulin Glargine 100 Units/Ml SUB-Q 5 units BID BARBARA Administration Insulin Human Lispro 0 unit 09/07/20 12:00 09/08/20 06:07 Insulin Lispro 100 Unit/Ml Vial 3 Ml SUB-Q Not Given Q6H BARBARA Protocol Lansoprazole 30 mg 09/08/20 10:00 Lansoprazole 30 Mg Solutab FEEDTUBE QDAY BARBARA Levetiracetam 750 mg 09/07/20 22:00 09/07/20 22:48 Levetiracetam 500 Mg/5 Ml Oral Liqd FEEDTUBE 750 mg BID BARBARA Administration Levothyroxine Sodium 50 mcg 09/08/20 06:00 09/08/20 06:06 Levothyroxine 50 Mcg Tab FEEDTUBE 50 mcg DAILY@0600 BARBARA Administration Ondansetron HCl 4 mg 09/07/20 19:17 Ondansetron 4 Mg/2 Ml Inj IV Q8H PRN Nausea Simple Syrup 15 ml 09/06/20 19:27 Simple Syrup 15 Ml FEEDTUBE PRN PRN Hypoglycemia Simple Syrup 30 ml 09/06/20 19:27 Simple Syrup 15 Ml FEEDTUBE PRN PRN Hypoglycemia Sodium Bicarbonate 325 mg 09/06/20 19:27 Sodium Bicarbonate 325 Mg Tab FEEDTUBE PRN PRN For Clogged Feeding Tube Nutrition/Malnutrition Assess - Dietary Evaluation Nutrition/Malnutrition Findings: Nutrition Notes Start: 08/23/20 10:57 Freq: Status: Active Protocol: Document 09/07/20 13:27 AT (Rec: 09/07/20 13:34 AT [id number]) Co-Sign 09/07/20 13:27 LP Nutrition Notes Need for Assessment generated from: MD Order Initial or Follow up Reassessment Current Diagnosis Acute Kidney Injury,Diabetes, Sepsis Other Pertinent Diagnosis Encephalopathy, COVID-19 (+), GIB, UTI, gastric ulcer, gastritis Current Diet TPN at 84 ml/hr Labs/Tests 09/06 POC BG 222 BUN 23 Cr 0.4 Pertinent Medications NS at 50 mL/hr Humalog Lantus Height 5 ft 5 in Weight 81.4 kg [place] Body Weight (kg) 56.81 BMI 29.8 Weight Status Overweight Subjective/Other Information TPN day 11. Pt s/p PEG placement. Pt has not had a BM since 09/03/20. Consulted for TF intiation. Percent of energy/protein needs met: 100%/100% Burn Absent Trauma Absent GI Symptoms None Current % PO Negligible Minimum of two criteria No Energy Intake (severe) < or equal to 50% Estimated Energy Requirement > or equal to 5 days #2 Nutrition Diagnosis Increased nutrient needs ( specify in comment below) Diagnosis Progress(for reassessment Continues documentation) #1 Nutrition Diagnosis Inadequate oral intake Diagnosis Progress(for reassessment Continues documentation) Is patient on ventilator? No Is Patient Ambulatory and/or Out of Bed No REE-([facility]-confined to bed) 1536.744 Calculation Used for Recommendations [facility] Additional Notes Pro needs 1.25-1.5 g/k- 111 g/day Fluid needs 1ml/kcal Nutrition Intervention Change Diet Order: TF + TPN Nutrition Support: TPN at 84 ml/hr. Osmolality: 897. Dextrose: 8.8% Protein: 2.1% MVI. TF: Glucerna 1.2 at 50 mL/hr. Water flush: 100 mL q4hr Kcal 770 Protein (gm) 42 Carbohydrates (gm) 177 Fat (gm) 0 Fluid (mL) 2,016 Goal #1 Meet at least 75% of estimated energy and protein needs via TF and TPN Goal #2 TF tolerance Anticipated Discharge Needs: Tube Feeding Follow-Up By: 09/08/20 Additional Comments F/U for labs (BMP, Phos, Mag), TF tolerance
--- NOTE | 2020-09-08 12:06 | Progress Note ---
Assessment and Plan Preoperative cardiovascular exam Paroxysmal atrial fibrillation rate control has been optimal without use of significant AV yoan blocking therapy, suggesting underlying conduction system disease. further use of long-term anticoagulation will not be recommended at this time, in the setting of the recent GI bleed and severe anemia. 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 Advanced dementia Conservative cardiac management. Subjective Date of service: 09/08/20 Principal diagnosis: Acute encephalopathy Interval history: No interval cardiac changes. Stable sinus rhythm on telemetry. Objective Vital Signs Temp Pulse Resp BP Pulse Ox 09/08/20 05:01 97.0 F L 86 18 115/41 98 09/07/20 21:39 98.8 F 104 H 22 114/34 100 09/07/20 15:29 99.5 F 96 H 16 140/54 100 09/07/20 12:07 98.4 F 93 H 20 135/91 99 - Physical Examination Narrative exam: Deferred due to isolation protocol. Cardiac: Positive: Reg Rate and Rhythm - Labs and Meds Comprehensive Metabolic Panel 09/08/20 Range/Units 04:52 Sodium 143 (137-145) mmol/L Potassium 3.9 (3.6-5.0) mmol/L Chloride 105.9 (98-107) mmol/L Carbon Dioxide 24 D (22-30) mmol/L BUN 59 H (7-17) mg/dL Creatinine 1.4 H D (0.6-1.2) mg/dL Glucose 36 L* (65-100) mg/dL Calcium 7.9 L (8.4-10.2) mg/dL
--- NOTE | 2020-09-08 16:46 | Post Anesthesia Evaluation ---
- Post Anesthesia Evaluation Patient Participated: No (no verbal/ report per RN) Airway Patent: Yes Stable Respiratory Function: Yes Nausea/Vomiting: No Temp > 96.8F: Yes Pain Manageable: Yes Adequeate Hydration: Yes Anesthesia Complications: No Block Receding Appropriately: Not Applicable Patient on Ventilator: No
[2020-09-08] MEDS: SODIUM CHLORIDE 0.9% 1000 ML 1,000 ML IV SCH (20:29)
[2020-09-09] MEDS: INSULIN LISPRO 100 UNIT/ML VIAL 3 mL SUB-Q SCH ×4 (05:10→18:14)
[2020-09-09] MEDS: LEVOTHYROXINE 50 MCG TAB FEEDTUBE SCH (05:12)
[2020-09-09 06:25] LABS: Basophils % (Auto) 0.3 % (0.0-1.8); Eosinophils # (Auto) 0.1 K/mm3 (0.0-0.4); Eosinophils % (Auto) 0.9 % (0.0-4.3); Hematocrit 27.2 % (30.3-42.9); Hemoglobin 8.8 gm/dl (10.1-14.3); Lymphocytes # (Auto) 0.9 K/mm3 (1.2-5.4); Lymphocytes % (Auto) 7.2 % (13.4-35.0); Mean Corpuscular HGB Conc 33 % (30-34); Mean Corpuscular Volume 89 fl (79-97); Monocytes # (Auto) 0.4 K/mm3 (0.0-0.8); Monocytes % (Auto) 3.7 % (0.0-7.3); Platelet Count 168 K/mm3 (140-440); Red Blood Count 3.05 M/mm3 (3.65-5.03); Red Cell Distribution Width 16.6 % (13.2-15.2)
[2020-09-09 07:02] LABS: Blood Urea Nitrogen 39 mg/dL (7-17); Calcium 7.7 mg/dL (8.4-10.2); Hemolysis Index 31
[2020-09-09 07:08] LABS: BUN/Creatinine Ratio 65
--- NOTE | 2020-09-09 08:50 | Progress Note ---
Assessment and Plan Paroxysmal atrial fibrillation rate control has been optimal without use of significant AV yoan blocking therapy, suggesting underlying conduction system disease. further use of long-term anticoagulation will not be recommended at this time, in the setting of the recent GI bleed and severe anemia. 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 Advanced dementia Conservative cardiac management. Subjective Date of service: 09/09/20 Principal diagnosis: Acute encephalopathy Interval history: No interval cardiac changes. Stable sinus rhythm on telemetry. Objective Vital Signs Temp Pulse Resp BP Pulse Ox 09/09/20 06:27 98.0 F 78 16 77/29 100 09/08/20 22:40 97.9 F 90 16 95/54 100 09/08/20 17:35 97.4 F L 98 H 22 114/47 99 09/08/20 12:44 97.9 F 90 20 119/43 100 - Physical Examination Narrative exam: Deferred due to isolation protocol. Cardiac: Positive: Reg Rate and Rhythm - Labs and Meds CBC 09/09/20 Range/Units 05:20 WBC 11.8 H (4.5-11.0) K/mm3 RBC 3.05 L (3.65-5.03) M/mm3 Hgb 8.8 L (10.1-14.3) gm/dl Hct 27.2 L (30.3-42.9) % Plt Count 168 (140-440) K/mm3 Lymph # (Auto) 0.9 L (1.2-5.4) K/mm3 [place] # (Auto) 0.4 (0.0-0.8) K/mm3 Eos # (Auto) 0.1 (0.0-0.4) K/mm3 Baso # (Auto) 0.0 (0.0-0.1) K/mm3 Comprehensive Metabolic Panel 09/09/20 Range/Units 05:20 Sodium 142 (137-145) mmol/L Potassium 3.5 L (3.6-5.0) mmol/L Chloride 110.8 H (98-107) mmol/L Carbon Dioxide 22 (22-30) mmol/L BUN 39 H (7-17) mg/dL Creatinine 0.6 D (0.6-1.2) mg/dL Glucose 65 (65-100) mg/dL Calcium 7.7 L (8.4-10.2) mg/dL
[2020-09-09] MEDS: INSULIN GLARGINE 100 UNITS/ML SUB-Q SCH ×2 (10:42→22:26)
[2020-09-09] MEDS: levETIRAcetam 500 MG/5 ML ORAL LIQD FEEDTUBE SCH ×2 (10:43→22:32)
[2020-09-09] MEDS: LANSOPRAZOLE 30 MG SOLUTAB FEEDTUBE SCH (10:43)
[2020-09-09] MEDS: HYDROCORTISONE 10 MG TAB FEEDTUBE SCH ×2 (10:44→22:32)
[2020-09-09 11:15] LABS: INR 1.25 (0.87-1.13)
[2020-09-09 11:16] LABS: Partial Thromboplastin Time 45.2 Sec. (24.2-36.6)
--- NOTE | 2020-09-09 12:56 | Progress Note ---
Assessment and Plan Assessment and plan: Acute toxic metabolic encephalopathy: Possibly secondary to infection versus decreased renal function. Extensive skull base meningioma GI bleed/hematochezia. Endoscopic evaluation revealed gastric ulcer. No active bleeding Gastric ulcer. As above. UTI: Urine and blood cultures negative. Continue cefepime per ID recommendation Sepsis: Etiology secondary to above. Acute hypoxic respiratory failure: Currently on 3 L nasal cannula. Unclear if she has discharged on oxygen from bradycardia when she had Covid. 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 D-dimer noted to be 2409.7 and thus empirically started on therapeutic dose anticoagulation. PAWAN: Renally dose medications. 08/24/2020. Patient still mildly confused. However, I suspect patient has underlying Alzheimer's dementia and this is her baseline. I discussed plan of care and altered mentation with sister at [phone]. Patient will need DME of hospital bed and oxygen for discharge home. Await physical therapy recommendations. 08/25/2020. Patient still lethargic and confused. Patient receiving hydrocortisone 50 mg IV twice daily for adrenal insufficiency. Check B12, folate and ammonia levels. Neurology consultation pending. Continue supplemental oxygen to maintain sats greater than 92%. 08/26/2020. Encephalopathy likely secondary to toxic metabolic causes in the setting of leukocytosis, improving uremia, renal insufficiency, covid-19, underlying uti. Check CT head without contrast and EEG per neurology recommendations. However may need csf evaluation if brain imaging and eeg are unremarkable and pt continues to remain encephalopathic. Follow-up cortisol levels and T3-T4. 08/27/2020. Patient remains lethargic and confused. Encephalopathy is persistent and likely secondary to toxic metabolic causes from sepsis, renal insufficiency/uremia, COVID-[address] scan of the head found to be negative. Await EEG. Consider CSF evaluation if EEG unremarkable. Consult GI for further evaluation of hematochezia/GI bleed. Continue Protonix 40 mg IV twice daily. Transfuse for hemoglobin less than 7. Continue to monitor serial CBC. Lovenox discontinued which was empirically started for elevated D-dimer. Patient does have a history of chronic steroids for Gentry's disease. Decrease IV hydrocortisone. Follow-up cortisol levels and T3-T4. I updated the sister and family at [phone]. 08/28/2020. Follow-up EEG per neurology. GI reports if signs of hemodynamic changes, we will proceed with stat bleeding scan. Hemoglobin has dropped to 6.8. Type and cross and transfuse 2 units. Continue to hold anticoagulation. Continue Protonix 40 mg IV twice daily. Nursing reports inability to place NG tube. Place PICC line and start TPN. Dietitian consulted. ? NG tube placement under fluoroscopy. Patient may need PEG tube placement. 08/29/2020. Patient is s/p 3 units PRBCs. Hemoglobin has stabilized to 11.5. Continue to trend and follow serial H/H. Patient remains hemodynamically stable. If patient has a change, we will proceed with stat bleeding scan. GI following. Continue Protonix 40 mg IV twice daily. Continue to hold anticoagulation. Nursing reports inability to place NG tube. PICC line placed to initiate TPN. Dietitian consulted. ? NG tube placement under fluoroscopy. Patient may need PEG tube placement. 08/30/2020. Hemoglobin remained stable. Patient is on TPN and will not be discharged on TPN. NG tube could not be placed as per RN.. Awaiting EEG to rule out any seizures. If no etiology found, patient will benefit from a PEG placement as she has advanced dementia. Continue to hold anticoagulation due to recent GI bleed. GI to reevaluate for PEG placement. 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 Not clear if this is baseline. Need to retrieve her records from previous hospitalization. Neurosurgery consulted for evaluation. 09/01/2020. She is remains confused. Neurology evaluation appreciated. No intervention for brain mass. She is on hydrocortisone for hypopituitary function. Will adjust based on cortisol levels. She will need to have PEG placement for feeds ultimately as she will not be on TPN for a long time. Will reconsult GI for NG tube placement. 09/02. Plan for PEG placement today. She is awake and alert to person only. Vitals stable. 09/03. Had EGD which showed gastritis. Patient will need to have a PEG placement by other means-IR or surgery as per GI. Now on PPI twice daily. Biopsy from gastric ulcer sent. She remains on TPN. Plan to discuss PEG placement IR or surgery. Plan for LP as well. 09/04. Surgery has been consulted for PEG placement. COVID-19 test sent. She remains on TPN. LP still pending 09/05. Patient is awake today but confused. COVID-19 test remains positive. Patients PEG placement may be held for now as per surgery continue Covid infection resolved. She remains on TPN. LP still pending. 09/06. Patient remains confused. COVID-19 test remains positive. Patients PEG placement may be held for now as per surgery continue Covid infection resolved. She remains on TPN. LP still pending. 09/07. Surgery completed laparoscopic-assisted PEG tube placement. Advance tube feeding per dietitian/commissioned defence [employer] officer recommendations. Patient has had optimal rate control without use of significant AV yona blocking therapy which suggests underlying conduction system disease per cardiology. Cardiology does not recommend further use of long-term anticoagulation in the setting of recent GI bleed, anemia, AMS and age. I will call the sister to update her regarding care but no answer. Message left. 09/08. Patient tolerating PEG tube feedings. Awaiting LP. Patient remains confused. Continue hydrocortisone for hypopituitary function. Will discuss with neurology further plans . 09/09. Plans for LP to assess confusion. Continue hydrocortisone for hypopituitary function. Will discuss with neurology further plans . History Interval history: No new issues Hospitalist Physical - Constitutional Vitals: Temp Pulse Resp BP Pulse Ox 98.0 F 78 16 77/29 100 09/09/20 06:27 09/09/20 06:27 09/09/20 06:27 09/09/20 06:27 09/09/20 06:27 General appearance: Present: no acute distress, well-nourished, other (Lethargic and confused) - EENT Eyes: Present: PERRL, EOM intact ENT: hearing intact, clear oral mucosa, dentition normal - Neck Neck: Present: supple, normal ROM - Respiratory Respiratory effort: normal Respiratory: bilateral: CTA - Cardiovascular Rhythm: regular Heart Sounds: Present: S1 & S2. Absent: gallop, rub - Extremities Extremities: no ischemia, No edema, Full ROM - Abdominal General gastrointestinal: soft, non-tender, non-distended, normal bowel sounds - Integumentary Integumentary: Present: clear, warm, dry - Neurologic Neurologic: CNII-XII intact, moves all extremities HEART Score - HEART Score Troponin: Troponin T 0.075 ng/mL (0.00-0.029) H 08/18/20 18:25 Troponin: 1-3x normal limit - Critical Actions Critical Actions: 4-6 pts:12-16.6% risk of adverse cardiac event. Should be admitted Results - Labs CBC & Chem 7: 09/09/20 05:20 09/09/20 05:20 Labs: Laboratory Last Values WBC 11.8 K/mm3 (4.5-11.0) H 09/09/20 05:20 RBC 3.05 M/mm3 (3.65-5.03) L 09/09/20 05:20 Hgb 8.8 gm/dl (10.1-14.3) L 09/09/20 05:20 Hct 27.2 % (30.3-42.9) L 09/09/20 05:20 MCV 89 fl (79-97) 09/09/20 05:20 MCH 29 pg (28-32) 09/09/20 05:20 MCHC 33 % (30-34) 09/09/20 05:20 RDW 16.6 % (13.2-15.2) H 09/09/20 05:20 Plt Count 168 K/mm3 (140-440) 09/09/20 05:20 Lymph % (Auto) 7.2 % (13.4-35.0) L 09/09/20 05:20 [place] % (Auto) 3.7 % (0.0-7.3) 09/09/20 05:20 Eos % (Auto) 0.9 % (0.0-4.3) 09/09/20 05:20 Baso % (Auto) 0.3 % (0.0-1.8) 09/09/20 05:20 Lymph # (Auto) 0.9 K/mm3 (1.2-5.4) L 09/09/20 05:20 [place] # (Auto) 0.4 K/mm3 (0.0-0.8) 09/09/20 05:20 Eos # (Auto) 0.1 K/mm3 (0.0-0.4) 09/09/20 05:20 Baso # (Auto) 0.0 K/mm3 (0.0-0.1) 09/09/20 05:20 Add Manual Diff Complete 08/31/20 06:20 Total Counted 100 08/31/20 06:20 Seg Neutrophils % 87.9 % (40.0-70.0) H 09/09/20 05:20 Seg Neuts % (Manual) 87.0 % (40.0-70.0) H 08/31/20 06:20 Band Neutrophils % 1.0 % 08/31/20 06:20 Lymphocytes % (Manual) 5.0 % (13.4-35.0) L 08/31/20 06:20 Reactive Lymphs % (Man) 1.0 % 08/28/20 10:07 Monocytes % (Manual) 5.0 % (0.0-7.3) 08/31/20 06:20 Metamyelocytes % 2.0 % 08/31/20 06:20 Nucleated RBC % Not Reportable 08/31/20 06:20 Seg Neutrophils # 10.4 K/mm3 (1.8-7.7) H 09/09/20 05:20 Seg Neutrophils # Man 15.1 K/mm3 (1.8-7.7) H 08/31/20 06:20 Band Neutrophils # 0.2 K/mm3 08/31/20 06:20 Lymphocytes # (Manual) 0.9 K/mm3 (1.2-5.4) L 08/31/20 06:20 Abs React Lymphs (Man) 0.0 K/mm3 08/31/20 06:20 Monocytes # (Manual) 0.9 K/mm3 (0.0-0.8) H 08/31/20 06:20 Eosinophils # (Manual) 0.0 K/mm3 (0.0-0.4) 08/31/20 06:20 Basophils # (Manual) 0.0 K/mm3 (0.0-0.1) 08/31/20 06:20 Metamyelocytes # 0.3 K/mm3 08/31/20 06:20 Myelocytes # 0.0 K/mm3 08/31/20 06:20 Promyelocytes # 0.0 K/mm3 08/31/20 06:20 Blast Cells # 0.0 K/mm3 08/31/20 06:20 WBC Morphology Not Reportable 08/31/20 06:20 Hypersegmented Neuts Not Reportable 08/31/20 06:20 Hyposegmented Neuts Not Reportable 08/31/20 06:20 Hypogranular Neuts Not Reportable 08/31/20 06:20 Smudge Cells Not Reportable 08/31/20 06:20 Toxic Granulation Not Reportable 08/31/20 06:20 Toxic Vacuolation Not Reportable 08/31/20 06:20 Dohle Bodies Not Reportable 08/31/20 06:20 Pelger-Huet Anomaly Not Reportable 08/31/20 06:20 Marie Rods Not Reportable 08/31/20 06:20 Platelet Estimate Consistent w auto 08/31/20 06:20 Clumped Platelets Not Reportable 08/31/20 06:20 Plt Clumps, EDTA Not Reportable 08/31/20 06:20 Large Platelets Not Reportable 08/31/20 06:20 Giant Platelets Not Reportable 08/31/20 06:20 Platelet Satelliting Not Reportable 08/31/20 06:20 Plt Morphology Comment Not Reportable 08/31/20 06:20 RBC Morphology Not Reportable 08/31/20 06:20 Dimorphic RBCs Not Reportable 08/31/20 06:20 Polychromasia Not Reportable 08/31/20 06:20 Hypochromasia Not Reportable 08/31/20 06:20 Poikilocytosis Not Reportable 08/31/20 06:20 Anisocytosis 1+ 08/31/20 06:20 Microcytosis Not Reportable 08/31/20 06:20 Macrocytosis Not Reportable 08/31/20 06:20 Spherocytes Not Reportable 08/31/20 06:20 Pappenheimer Bodies Not Reportable 08/31/20 06:20 Sickle Cells Not Reportable 08/31/20 06:20 Target Cells Not Reportable 08/31/20 06:20 Tear Drop Cells Not Reportable 08/31/20 06:20 Ovalocytes Not Reportable 08/31/20 06:20 Helmet Cells Not Reportable 08/31/20 06:20 [place] Bodies Not Reportable 08/31/20 06:20 [place] Rings Not Reportable 08/31/20 06:20 Darren Cells Not Reportable 08/31/20 06:20 Bite Cells Not Reportable 08/31/20 06:20 Crenated Cell Not Reportable 08/31/20 06:20 Elliptocytes Not Reportable 08/31/20 06:20 Acanthocytes (Spur) Not Reportable 08/31/20 06:20 Rouleaux Not Reportable 08/31/20 06:20 Hemoglobin C Crystals Not Reportable 08/31/20 06:20 Schistocytes Not Reportable 08/31/20 06:20 Malaria parasites Not Reportable 08/31/20 06:20 [place]am Bodies Not Reportable 08/31/20 06:20 Hem Pathologist Commnt No 08/31/20 06:20 PT 15.7 Sec. (12.2-14.9) H 09/09/20 09:44 INR 1.25 (0.87-1.13) H 09/09/20 09:44 APTT 45.2 Sec. (24.2-36.6) H 09/09/20 09:44 D-Dimer 2409.74 ng/mlDDU (0-234) H 08/18/20 Unknown Sodium 142 mmol/L (137-145) 09/09/20 05:20 Potassium 3.5 mmol/L (3.6-5.0) L 09/09/20 05:20 Chloride 110.8 mmol/L (98-107) H 09/09/20 05:20 Carbon Dioxide 22 mmol/L (22-30) 09/09/20 05:20 Anion Gap 13 mmol/L 09/09/20 05:20 BUN 39 mg/dL (7-17) H 09/09/20 05:20 Creatinine 0.6 mg/dL (0.6-1.2) D 09/09/20 05:20 Estimated GFR > 60 ml/min 09/09/20 05:20 BUN/Creatinine Ratio 65 % 09/09/20 05:20 Glucose 65 mg/dL (65-100) 09/09/20 05:20 POC Glucose 66 mg/dL (70-105) L 09/09/20 11:54 Lactic Acid 1.00 mmol/L (0.7-2.0) 08/18/20 18:25 Calcium 7.7 mg/dL (8.4-10.2) L 09/09/20 05:20 Phosphorus 5.50 mg/dL (2.5-4.5) H 09/08/20 04:52 Magnesium 2.10 mg/dL (1.7-2.3) 09/08/20 04:52 Ferritin 1950.0 ng/mL (10.0-200.0) H 08/18/20 15:35 Total Bilirubin 0.50 mg/dL (0.1-1.2) 09/04/20 05:57 AST 11 units/L (5-40) 09/04/20 05:57 ALT 8 units/L (7-56) 09/04/20 05:57 Alkaline Phosphatase 59 units/L (35-129) 09/04/20 05:57 Ammonia 32.0 umol/L (25-60) 08/25/20 09:06 Lactate Dehydrogenase 228 units/L (91-180) H 08/18/20 15:35 Total Creatine Kinase 164 units/L (30-135) H 08/22/20 19:44 Troponin T 0.075 ng/mL (0.00-0.029) H 08/18/20 18:25 C-Reactive Protein 35.60 mg/dL (0.00-1.30) H 08/18/20 15:35 Total Protein 4.2 g/dL (6.3-8.2) L 09/04/20 05:57 Albumin 2.5 g/dL (3.9-5) L 09/04/20 05:57 Albumin/Globulin Ratio 1.5 % 09/04/20 05:57 Triglycerides 70 mg/dL (2-149) 08/31/20 06:20 Cholesterol 79 mg/dL (50-199) 08/18/20 18:25 LDL Cholesterol Direct 42 mg/dL (50-130) L 08/18/20 18:25 HDL Cholesterol 23 mg/dL (40-59) L 08/18/20 18:25 Cholesterol/HDL Ratio 3.43 % 08/18/20 18:25 Vitamin B12 721.0 pg/mL (211-911) 08/25/20 09:06 Folate 8.34 ng/mL (7.3-26.0) 08/25/20 09:06 Procalcitonin 4.00 ng/mL (<0.15) 08/18/20 15:35 TSH 0.056 mlU/mL (0.270-4.200) L 08/24/20 17:02 Free T4 1.59 ng/dL (0.76-1.46) H 08/26/20 10:22 Free T3 Index 1.2 pg/mL (2.3-4.2) L 08/26/20 10:22 Total Cortisol 37.6 mcg/dL () 09/02/20 05:30 Urine Color Yellow (Yellow) 09/08/20 06:14 Urine Turbidity Turbid (Clear) 09/08/20 06:14 Urine pH 5.0 (5.0-7.0) 09/08/20 06:14 Ur Specific [place] 1.009 (1.003-1.030) 09/08/20 06:14 Urine Protein 100 mg/dl mg/dL (Negative) 09/08/20 06:14 Urine Glucose (UA) Neg mg/dL (Negative) 09/08/20 06:14 Urine Ketones Neg mg/dL (Negative) 09/08/20 06:14 Urine Blood Lg (Negative) 09/08/20 06:14 Urine Nitrite Neg (Negative) 09/08/20 06:14 Urine Bilirubin Neg (Negative) 09/08/20 06:14 Urine Urobilinogen < 2.0 mg/dL (<2.0) 09/08/20 06:14 Ur Leukocyte Esterase Mod (Negative) 09/08/20 06:14 Urine WBC (Auto) > 182.0 /HPF (0.0-6.0) H 09/08/20 06:14 Urine RBC (Auto) > 182.0 /HPF (0.0-6.0) 09/08/20 06:14 U Epithel Cells (Auto) 1.0 /HPF (0-13.0) 08/18/20 Unknown Urine Bacteria (Auto) 4+ /HPF (Negative) 09/08/20 06:14 Urine WBC Clumps 3+ /HPF 09/08/20 06:14 Urine Mucus 1+ /HPF 09/08/20 06:14 Ur Yeast w Hyphae 2+ /HPF 09/08/20 06:14 Urine Yeast (Budding) 2+ /HPF 09/08/20 06:14 Random Vancomycin 9.8 ug/mL (0-40.0) 08/19/20 19:02 Coronavirus (PCR) Positive (Negative) A 09/04/20 10:27 Blood Type O POSITIVE 08/27/20 20:44 Antibody Screen Negative 08/27/20 20:44 Crossmatch See Detail 08/27/20 20:44 [place]/IV: Voiding Method Indwelling Catheter IV Catheter Type [Left Triple Lumen Cath Internal Jugular] IV Catheter Type [Left] CVL Active Medications - Current Medications Current Medications: Generic Name Dose Route Start Last Admin Trade Name Freq PRN Reason Stop Dose Admin Acetaminophen 650 mg 09/07/20 19:17 09/07/20 22:50 Acetaminophen 325 Mg/10.15 Ml Oral Liqd Unit Dose FEEDTUBE 650 mg Q6H PRN Administration Pain, Mild (1-3) Lipase/Protease/Amylase 1 each 09/06/20 19:27 Lipase 10,500/Protease 25,000/Amylase 43,750 (Units) Dr Fernandez FEEDTUBE PRN PRN For Clogged Feeding Tube Atropine Sulfate 1 mg 08/23/20 16:56 Atropine 1 Mg/Ml Vial IV PRN PRN Bradycardia Clonidine HCl 0.2 mg 08/31/20 22:00 09/07/20 22:48 Clonidine Tts 0.2 Mg/24 Hr Patch TD 0.2 mg We BARBARA Administration Hydralazine HCl 5 mg 08/31/20 21:22 09/06/20 23:43 Hydralazine 20 Mg/1 Ml Inj IV 5 mg Q4H PRN Administration Blood Pressure Hydrocortisone Acetate 10 mg 09/07/20 22:00 09/09/20 10:44 Hydrocortisone 10 Mg Tab FEEDTUBE 10 mg Q12HR BARBARA Administration Sodium Chloride 1,000 mls @ 50 mls/hr 09/02/20 14:30 09/08/20 20:29 Nacl 0.9% 1000 Ml IV 50 mls/hr DIRECT BARBARA Administration Insulin Glargine 5 units 09/03/20 22:00 09/09/20 10:42 Insulin Glargine 100 Units/Ml SUB-Q Not Given BID BARBARA Insulin Human Lispro 0 unit 09/07/20 12:00 09/09/20 06:00 Insulin Lispro 100 Unit/Ml Vial 3 Ml SUB-Q Not Given Q6H BARBARA Protocol Lansoprazole 30 mg 09/08/20 10:00 09/09/20 10:43 Lansoprazole 30 Mg Solutab FEEDTUBE 30 mg QDAY BARBARA Administration Levetiracetam 750 mg 09/07/20 22:00 09/09/20 10:43 Levetiracetam 500 Mg/5 Ml Oral Liqd FEEDTUBE 750 mg BID BARBARA Administration Levothyroxine Sodium 50 mcg 09/08/20 06:00 09/09/20 05:12 Levothyroxine 50 Mcg Tab FEEDTUBE 50 mcg DAILY@0600 BARBARA Administration Ondansetron HCl 4 mg 09/07/20 19:17 Ondansetron 4 Mg/2 Ml Inj IV Q8H PRN Nausea Simple Syrup 15 ml 09/06/20 19:27 Simple Syrup 15 Ml FEEDTUBE PRN PRN Hypoglycemia Simple Syrup 30 ml 09/06/20 19:27 Simple Syrup 15 Ml FEEDTUBE PRN PRN Hypoglycemia Sodium Bicarbonate 325 mg 09/06/20 19:27 Sodium Bicarbonate 325 Mg Tab FEEDTUBE PRN PRN For Clogged Feeding Tube Nutrition/Malnutrition Assess - Dietary Evaluation Nutrition/Malnutrition Findings: Nutrition Notes Start: 08/23/20 10:57 Freq: Status: Active Protocol: Document 09/08/20 08:56 ANCELMO (Rec: 09/08/20 09:13 [email or web address] [id number]) Co-Sign 09/08/20 08:56 LP Nutrition Notes Initial or Follow up Reassessment Current Diagnosis Acute Kidney Injury,Diabetes, Sepsis Other Pertinent Diagnosis Encephalopathy, COVID-19 (+), GIB, UTI, gastric ulcer, gastritis Current Diet TPN at 84 ml/hr + Glucerna 1.2 at 50 ml/hr Labs/Tests BG 36 to 119 BUN 59 Cr 1.4 Phos 5.5 Pertinent Medications NS 50 ml/hr D50W at 150 ml (AM 09/08/20) Height 5 ft 5 in Weight 81.4 kg [place] Body Weight (kg) 56.81 BMI 29.8 Weight change and time frame Wt gain likely edema. BMI appropriate for age Weight Status Appropriate Subjective/Other Information F/u TF and TPN. Pt had hypoglycemic event this AM. Called RN and she confirmed both TF and TPN were running ( 0745). Pt BG stablized by Dextrose. UPDATE: since pt tolerating TF at 30 ml/hr, will d/c TPN. Monitor renal function. Spoke with LOLITA Irving this PM to let her know that TPN order was not being placed for tomorrow and to finish the TPN bag. Percent of energy/protein needs met: 53%/45% (TPN only) Burn Absent Trauma Absent GI Symptoms None Current % PO Negligible Minimum of two criteria No Fluid Accumulation Mild (non-severe) #2 Nutrition Diagnosis Increased nutrient needs ( specify in comment below) Diagnosis Progress(for reassessment Continues documentation) #1 Nutrition Diagnosis Inadequate oral intake As Evidenced by Signs and Symptoms pt unable to self feed but enteral nutrition support approved and tolerated Diagnosis Progress(for reassessment Continues documentation) Is patient on ventilator? No Is Patient Ambulatory and/or Out of Bed No REE-([facility]-confined to bed) 1536.744 Kcal/Kg value to use for calculation 18 Approximate Energy Requirements Using 1465 kcal/Kg Calculation Used for Recommendations Kcal/kg Additional Notes Protein: 49-65 g (0.6-0.8 g/kg ) Fluid needs 1ml/kcal Nutrition Intervention Change Diet Order: d/c TPN Continue TF via PEG Nutrition Support: Glucerna 1.2 at 50 ml/hr. Flush 200 ml q4hr. Kcal 1,440 Protein (gm) 42 Carbohydrates (gm) 177 Fat (gm) 7 Fluid (mL) 97 Goal #1 TF tolerance Goal #2 Meet at least 75% of energy and protein needs via TF Anticipated Discharge Needs: TF Follow-Up By: 09/09/20 Additional Comments F/u TF advancement to goal rate, tolerance, and renal labs.
[2020-09-10] MEDS: INSULIN LISPRO 100 UNIT/ML VIAL 3 mL SUB-Q SCH ×4 (00:02→17:46)
[2020-09-10] MEDS: LEVOTHYROXINE 50 MCG TAB FEEDTUBE SCH (05:39)
--- NOTE | 2020-09-10 08:53 | Progress Note ---
Assessment and Plan Assessment and plan: Acute toxic metabolic encephalopathy: Possibly secondary to infection versus decreased renal function. Extensive skull base meningioma GI bleed/hematochezia. Endoscopic evaluation revealed gastric ulcer. No active bleeding Gastric ulcer. As above. UTI: Urine and blood cultures negative. Continue cefepime per ID recommendation Sepsis: Etiology secondary to above. Acute hypoxic respiratory failure: Currently on 3 L nasal cannula. Unclear if she has discharged on oxygen from bradycardia when she had Covid. 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 D-dimer noted to be 2409.7 and thus empirically started on therapeutic dose anticoagulation. PAWAN: Renally dose medications. 08/24/2020. Patient still mildly confused. However, I suspect patient has underlying Alzheimer's dementia and this is her baseline. I discussed plan of care and altered mentation with sister at [phone]. Patient will need DME of hospital bed and oxygen for discharge home. Await physical therapy recommendations. 08/25/2020. Patient still lethargic and confused. Patient receiving hydrocortisone 50 mg IV twice daily for adrenal insufficiency. Check B12, folate and ammonia levels. Neurology consultation pending. Continue supplemental oxygen to maintain sats greater than 92%. 08/26/2020. Encephalopathy likely secondary to toxic metabolic causes in the setting of leukocytosis, improving uremia, renal insufficiency, covid-19, underlying uti. Check CT head without contrast and EEG per neurology recommendations. However may need csf evaluation if brain imaging and eeg are unremarkable and pt continues to remain encephalopathic. Follow-up cortisol levels and T3-T4. 08/27/2020. Patient remains lethargic and confused. Encephalopathy is persistent and likely secondary to toxic metabolic causes from sepsis, renal insufficiency/uremia, COVID-[address] scan of the head found to be negative. Await EEG. Consider CSF evaluation if EEG unremarkable. Consult GI for further evaluation of hematochezia/GI bleed. Continue Protonix 40 mg IV twice daily. Transfuse for hemoglobin less than 7. Continue to monitor serial CBC. Lovenox discontinued which was empirically started for elevated D-dimer. 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 Decrease IV hydrocortisone. Follow-up cortisol levels and T3-T4. I updated the sister and family at [phone]. 08/28/2020. Follow-up EEG per neurology. GI reports if signs of hemodynamic changes, we will proceed with stat bleeding scan. Hemoglobin has dropped to 6.8. Type and cross and transfuse 2 units. Continue to hold anticoagulation. Continue Protonix 40 mg IV twice daily. Nursing reports inability to place NG tube. Place PICC line and start TPN. Dietitian consulted. ? NG tube placement under fluoroscopy. Patient may need PEG tube placement. 08/29/2020. Patient is s/p 3 units PRBCs. Hemoglobin has stabilized to 11.5. Continue to trend and follow serial H/H. Patient remains hemodynamically stable. If patient has a change, we will proceed with stat bleeding scan. GI following. Continue Protonix 40 mg IV twice daily. Continue to hold anticoagulation. Nursing reports inability to place NG tube. PICC line placed to initiate TPN. Dietitian consulted. ? NG tube placement under fluoroscopy. Patient may need PEG tube placement. 08/30/2020. Hemoglobin remained stable. Patient is on TPN and will not be discharged on TPN. NG tube could not be placed as per RN.. Awaiting EEG to rule out any seizures. If no etiology found, patient will benefit from a PEG placement as she has advanced dementia. Continue to hold anticoagulation due to recent GI bleed. GI to reevaluate for PEG placement. 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 Not clear if this is baseline. Need to retrieve her records from previous hospitalization. Neurosurgery consulted for evaluation. 09/01/2020. She is remains confused. Neurology evaluation appreciated. No intervention for brain mass. She is on hydrocortisone for hypopituitary function. Will adjust based on cortisol levels. She will need to have PEG placement for feeds ultimately as she will not be on TPN for a long time. Will reconsult GI for NG tube placement. 09/02. Plan for PEG placement today. She is awake and alert to person only. Vitals stable. 09/03. Had EGD which showed gastritis. Patient will need to have a PEG placement by other means-IR or surgery as per GI. Now on PPI twice daily. Biopsy from gastric ulcer sent. She remains on TPN. Plan to discuss PEG placement IR or surgery. Plan for LP as well. 09/04. Surgery has been consulted for PEG placement. COVID-19 test sent. She remains on TPN. LP still pending 09/05. Patient is awake today but confused. COVID-19 test remains positive. Patients PEG placement may be held for now as per surgery continue Covid infection resolved. She remains on TPN. LP still pending. 09/06. Patient remains confused. COVID-19 test remains positive. Patients PEG placement may be held for now as per surgery continue Covid infection resolved. She remains on TPN. LP still pending. 09/07. Surgery completed laparoscopic-assisted PEG tube placement. Advance tube feeding per dietitian/waiter/[facility] recommendations. Patient has had optimal rate control without use of significant AV yoan blocking therapy which suggests underlying conduction system disease per cardiology. Cardiology does not recommend further use of long-term anticoagulation in the setting of recent GI bleed, anemia, AMS and age. I will call the sister to update her regarding care but no answer. Message left. 09/08. Patient tolerating PEG tube feedings. Awaiting LP. Patient remains confused. Continue hydrocortisone for hypopituitary function. Will discuss with neurology further plans . 09/09. Plans for LP to assess confusion. Continue hydrocortisone for hypopituitary function. Will discuss with neurology further plans . 09/10. Continue hydrocortisone 10 mg daily. Keppra 750 mg daily. Patient tolerating tube feedings. Discussed with neurology further plans regarding encephalopathy. History Interval history: No new issues Hospitalist Physical - Constitutional Vitals: Temp Pulse Resp BP Pulse Ox 99.7 F H 96 H 20 179/74 98 09/10/20 06:42 09/10/20 06:42 09/10/20 06:42 09/10/20 06:42 09/10/20 06:42 General appearance: Present: no acute distress, well-nourished, other (Lethargic and confused) - EENT Eyes: Present: PERRL, EOM intact ENT: hearing intact, clear oral mucosa, dentition normal - Neck Neck: Present: supple, normal ROM - Respiratory Respiratory effort: normal Respiratory: bilateral: CTA - Cardiovascular Rhythm: regular Heart Sounds: Present: S1 & S2. Absent: gallop, rub - Extremities Extremities: no ischemia, No edema, Full ROM - Abdominal General gastrointestinal: soft, non-tender, non-distended, normal bowel sounds - Integumentary Integumentary: Present: clear, warm, dry - Neurologic Neurologic: CNII-XII intact, moves all extremities HEART Score - HEART Score Troponin: Troponin T 0.075 ng/mL (0.00-0.029) H 08/18/20 18:25 Troponin: 1-3x normal limit - Critical Actions Critical Actions: 4-6 pts:12-16.6% risk of adverse cardiac event. Should be admitted Results - Labs CBC & Chem 7: 09/09/20 05:20 09/09/20 05:20 Labs: Laboratory Last Values WBC 11.8 K/mm3 (4.5-11.0) H 09/09/20 05:20 RBC 3.05 M/mm3 (3.65-5.03) L 09/09/20 05:20 Hgb 8.8 gm/dl (10.1-14.3) L 09/09/20 05:20 Hct 27.2 % (30.3-42.9) L 09/09/20 05:20 MCV 89 fl (79-97) 09/09/20 05:20 MCH 29 pg (28-32) 09/09/20 05:20 MCHC 33 % (30-34) 09/09/20 05:20 RDW 16.6 % (13.2-15.2) H 09/09/20 05:20 Plt Count 168 K/mm3 (140-440) 09/09/20 05:20 Lymph % (Auto) 7.2 % (13.4-35.0) L 09/09/20 05:20 Dale % (Auto) 3.7 % (0.0-7.3) 09/09/20 05:20 Eos % (Auto) 0.9 % (0.0-4.3) 09/09/20 05:20 Baso % (Auto) 0.3 % (0.0-1.8) 09/09/20 05:20 Lymph # (Auto) 0.9 K/mm3 (1.2-5.4) L 09/09/20 05:20 Dale # (Auto) 0.4 K/mm3 (0.0-0.8) 09/09/20 05:20 Eos # (Auto) 0.1 K/mm3 (0.0-0.4) 09/09/20 05:20 Baso # (Auto) 0.0 K/mm3 (0.0-0.1) 09/09/20 05:20 Add Manual Diff Complete 08/31/20 06:20 Total Counted 100 08/31/20 06:20 Seg Neutrophils % 87.9 % (40.0-70.0) H 09/09/20 05:20 Seg Neuts % (Manual) 87.0 % (40.0-70.0) H 08/31/20 06:20 Band Neutrophils % 1.0 % 08/31/20 06:20 Lymphocytes % (Manual) 5.0 % (13.4-35.0) L 08/31/20 06:20 Reactive Lymphs % (Man) 1.0 % 08/28/20 10:07 Monocytes % (Manual) 5.0 % (0.0-7.3) 08/31/20 06:20 Metamyelocytes % 2.0 % 08/31/20 06:20 Nucleated RBC % Not Reportable 08/31/20 06:20 Seg Neutrophils # 10.4 K/mm3 (1.8-7.7) H 09/09/20 05:20 Seg Neutrophils # Man 15.1 K/mm3 (1.8-7.7) H 08/31/20 06:20 Band Neutrophils # 0.2 K/mm3 08/31/20 06:20 Lymphocytes # (Manual) 0.9 K/mm3 (1.2-5.4) L 08/31/20 06:20 Abs React Lymphs (Man) 0.0 K/mm3 08/31/20 06:20 Monocytes # (Manual) 0.9 K/mm3 (0.0-0.8) H 08/31/20 06:20 Eosinophils # (Manual) 0.0 K/mm3 (0.0-0.4) 08/31/20 06:20 Basophils # (Manual) 0.0 K/mm3 (0.0-0.1) 08/31/20 06:20 Metamyelocytes # 0.3 K/mm3 08/31/20 06:20 Myelocytes # 0.0 K/mm3 08/31/20 06:20 Promyelocytes # 0.0 K/mm3 08/31/20 06:20 Blast Cells # 0.0 K/mm3 08/31/20 06:20 WBC Morphology Not Reportable 08/31/20 06:20 Hypersegmented Neuts Not Reportable 08/31/20 06:20 Hyposegmented Neuts Not Reportable 08/31/20 06:20 Hypogranular Neuts Not Reportable 08/31/20 06:20 Smudge Cells Not Reportable 08/31/20 06:20 Toxic Granulation Not Reportable 08/31/20 06:20 Toxic Vacuolation Not Reportable 08/31/20 06:20 Dohle Bodies Not Reportable 08/31/20 06:20 Pelger-Huet Anomaly Not Reportable 08/31/20 06:20 Marie Rods Not Reportable 08/31/20 06:20 Platelet Estimate Consistent w auto 08/31/20 06:20 Clumped Platelets Not Reportable 08/31/20 06:20 Plt Clumps, EDTA Not Reportable 08/31/20 06:20 Large Platelets Not Reportable 08/31/20 06:20 Giant Platelets Not Reportable 08/31/20 06:20 Platelet Satelliting Not Reportable 08/31/20 06:20 Plt Morphology Comment Not Reportable 08/31/20 06:20 RBC Morphology Not Reportable 08/31/20 06:20 Dimorphic RBCs Not Reportable 08/31/20 06:20 Polychromasia Not Reportable 08/31/20 06:20 Hypochromasia Not Reportable 08/31/20 06:20 Poikilocytosis Not Reportable 08/31/20 06:20 Anisocytosis 1+ 08/31/20 06:20 Microcytosis Not Reportable 08/31/20 06:20 Macrocytosis Not Reportable 08/31/20 06:20 Spherocytes Not Reportable 08/31/20 06:20 Pappenheimer Bodies Not Reportable 08/31/20 06:20 Sickle Cells Not Reportable 08/31/20 06:20 Target Cells Not Reportable 08/31/20 06:20 Tear Drop Cells Not Reportable 08/31/20 06:20 Ovalocytes Not Reportable 08/31/20 06:20 Helmet Cells Not Reportable 08/31/20 06:20 [place] Bodies Not Reportable 08/31/20 06:20 Hayden Rings Not Reportable 08/31/20 06:20 [place] Cells Not Reportable 08/31/20 06:20 Bite Cells Not Reportable 08/31/20 06:20 Crenated Cell Not Reportable 08/31/20 06:20 Elliptocytes Not Reportable 08/31/20 06:20 Acanthocytes (Spur) Not Reportable 08/31/20 06:20 Rouleaux Not Reportable 08/31/20 06:20 Hemoglobin C Crystals Not Reportable 08/31/20 06:20 Schistocytes Not Reportable 08/31/20 06:20 Malaria parasites Not Reportable 08/31/20 06:20 Payam Bodies Not Reportable 08/31/20 06:20 Hem Pathologist Commnt No 08/31/20 06:20 PT 15.7 Sec. (12.2-14.9) H 09/09/20 09:44 INR 1.25 (0.87-1.13) H 09/09/20 09:44 APTT 45.2 Sec. (24.2-36.6) H 09/09/20 09:44 D-Dimer 2409.74 ng/mlDDU (0-234) H 08/18/20 Unknown Sodium 142 mmol/L (137-145) 09/09/20 05:20 Potassium 3.5 mmol/L (3.6-5.0) L 09/09/20 05:20 Chloride 110.8 mmol/L (98-107) H 09/09/20 05:20 Carbon Dioxide 22 mmol/L (22-30) 09/09/20 05:20 Anion Gap 13 mmol/L 09/09/20 05:20 BUN 39 mg/dL (7-17) H 09/09/20 05:20 Creatinine 0.6 mg/dL (0.6-1.2) D 09/09/20 05:20 Estimated GFR > 60 ml/min 09/09/20 05:20 BUN/Creatinine Ratio 65 % 09/09/20 05:20 Glucose 65 mg/dL (65-100) 09/09/20 05:20 POC Glucose 115 mg/dL (70-105) H 09/10/20 06:40 Lactic Acid 1.00 mmol/L (0.7-2.0) 08/18/20 18:25 Calcium 7.7 mg/dL (8.4-10.2) L 09/09/20 05:20 Phosphorus 5.50 mg/dL (2.5-4.5) H 09/08/20 04:52 Magnesium 2.10 mg/dL (1.7-2.3) 09/08/20 04:52 Ferritin 1950.0 ng/mL (10.0-200.0) H 08/18/20 15:35 Total Bilirubin 0.50 mg/dL (0.1-1.2) 09/04/20 05:57 AST 11 units/L (5-40) 09/04/20 05:57 ALT 8 units/L (7-56) 09/04/20 05:57 Alkaline Phosphatase 59 units/L (35-129) 09/04/20 05:57 Ammonia 32.0 umol/L (25-60) 08/25/20 09:06 Lactate Dehydrogenase 228 units/L (91-180) H 08/18/20 15:35 Total Creatine Kinase 164 units/L (30-135) H 08/22/20 19:44 Troponin T 0.075 ng/mL (0.00-0.029) H 08/18/20 18:25 C-Reactive Protein 35.60 mg/dL (0.00-1.30) H 08/18/20 15:35 Total Protein 4.2 g/dL (6.3-8.2) L 09/04/20 05:57 Albumin 2.5 g/dL (3.9-5) L 09/04/20 05:57 Albumin/Globulin Ratio 1.5 % 09/04/20 05:57 Triglycerides 70 mg/dL (2-149) 08/31/20 06:20 Cholesterol 79 mg/dL (50-199) 08/18/20 18:25 LDL Cholesterol Direct 42 mg/dL (50-130) L 08/18/20 18:25 HDL Cholesterol 23 mg/dL (40-59) L 08/18/20 18:25 Cholesterol/HDL Ratio 3.43 % 08/18/20 18:25 Vitamin B12 721.0 pg/mL (211-911) 08/25/20 09:06 Folate 8.34 ng/mL (7.3-26.0) 08/25/20 09:06 Procalcitonin 4.00 ng/mL (<0.15) 08/18/20 15:35 TSH 0.056 mlU/mL (0.270-4.200) L 08/24/20 17:02 Free T4 1.59 ng/dL (0.76-1.46) H 08/26/20 10:22 Free T3 Index 1.2 pg/mL (2.3-4.2) L 08/26/20 10:22 Total Cortisol 37.6 mcg/dL () 09/02/20 05:30 Urine Color Yellow (Yellow) 09/08/20 06:14 Urine Turbidity Turbid (Clear) 09/08/20 06:14 Urine pH 5.0 (5.0-7.0) 09/08/20 06:14 Ur Specific [place] 1.009 (1.003-1.030) 09/08/20 06:14 Urine Protein 100 mg/dl mg/dL (Negative) 09/08/20 06:14 Urine Glucose (UA) Neg mg/dL (Negative) 09/08/20 06:14 Urine Ketones Neg mg/dL (Negative) 09/08/20 06:14 Urine Blood Lg (Negative) 09/08/20 06:14 Urine Nitrite Neg (Negative) 09/08/20 06:14 Urine Bilirubin Neg (Negative) 09/08/20 06:14 Urine Urobilinogen < 2.0 mg/dL (<2.0) 09/08/20 06:14 Ur Leukocyte Esterase Mod (Negative) 09/08/20 06:14 Urine WBC (Auto) > 182.0 /HPF (0.0-6.0) H 09/08/20 06:14 Urine RBC (Auto) > 182.0 /HPF (0.0-6.0) 09/08/20 06:14 U Epithel Cells (Auto) 1.0 /HPF (0-13.0) 08/18/20 Unknown Urine Bacteria (Auto) 4+ /HPF (Negative) 09/08/20 06:14 Urine WBC Clumps 3+ /HPF 09/08/20 06:14 Urine Mucus 1+ /HPF 09/08/20 06:14 Ur Yeast w Hyphae 2+ /HPF 09/08/20 06:14 Urine Yeast (Budding) 2+ /HPF 09/08/20 06:14 Random Vancomycin 9.8 ug/mL (0-40.0) 08/19/20 19:02 Coronavirus (PCR) Positive (Negative) A 09/04/20 10:27 Blood Type O POSITIVE 08/27/20 20:44 Antibody Screen Negative 08/27/20 20:44 Crossmatch See Detail 08/27/20 20:44 [place]/IV: Voiding Method Indwelling Catheter IV Catheter Type [Left Hand] INT / Saline Lock IV Catheter Type [Left Triple Lumen Cath Internal Jugular] IV Catheter Type [Left] CVL Active Medications - Current Medications Current Medications: Generic Name Dose Route Start Last Admin Trade Name Freq PRN Reason Stop Dose Admin Acetaminophen 650 mg 09/07/20 19:17 09/07/20 22:50 Acetaminophen 325 Mg/10.15 Ml Oral Liqd Unit Dose FEEDTUBE 650 mg Q6H PRN Administration Pain, Mild (1-3) Lipase/Protease/Amylase 1 each 09/06/20 19:27 Lipase 10,500/Protease 25,000/Amylase 43,750 (Units) Dr Fernandez FEEDTUBE PRN PRN For Clogged Feeding Tube Atropine Sulfate 1 mg 08/23/20 16:56 Atropine 1 Mg/Ml Vial IV PRN PRN Bradycardia Clonidine HCl 0.2 mg 08/31/20 22:00 09/07/20 22:48 Clonidine Tts 0.2 Mg/24 Hr Patch TD 0.2 mg We BARBARA Administration Hydralazine HCl 5 mg 08/31/20 21:22 09/06/20 23:43 Hydralazine 20 Mg/1 Ml Inj IV 5 mg Q4H PRN Administration Blood Pressure Hydrocortisone Acetate 10 mg 09/07/20 22:00 09/09/20 22:32 Hydrocortisone 10 Mg Tab FEEDTUBE 10 mg Q12HR BARBARA Administration Sodium Chloride 1,000 mls @ 50 mls/hr 09/02/20 14:30 09/08/20 20:29 Nacl 0.9% 1000 Ml IV 50 mls/hr DIRECT BARBARA Administration Insulin Glargine 5 units 09/03/20 22:00 09/09/20 22:26 Insulin Glargine 100 Units/Ml SUB-Q Not Given BID BARBARA Insulin Human Lispro 0 unit 09/07/20 12:00 09/10/20 06:40 Insulin Lispro 100 Unit/Ml Vial 3 Ml SUB-Q Not Given Q6H BARBARA Protocol Lansoprazole 30 mg 09/08/20 10:00 09/09/20 10:43 Lansoprazole 30 Mg Solutab FEEDTUBE 30 mg QDAY BARBARA Administration Levetiracetam 750 mg 09/07/20 22:00 09/09/20 22:32 Levetiracetam 500 Mg/5 Ml Oral Liqd FEEDTUBE 750 mg BID BARBARA Administration Levothyroxine Sodium 50 mcg 09/08/20 06:00 09/10/20 05:39 Levothyroxine 50 Mcg Tab FEEDTUBE 50 mcg DAILY@0600 BARBARA Administration Ondansetron HCl 4 mg 09/07/20 19:17 Ondansetron 4 Mg/2 Ml Inj IV Q8H PRN Nausea Simple Syrup 15 ml 09/06/20 19:27 Simple Syrup 15 Ml FEEDTUBE PRN PRN Hypoglycemia Simple Syrup 30 ml 09/06/20 19:27 Simple Syrup 15 Ml FEEDTUBE PRN PRN Hypoglycemia Sodium Bicarbonate 325 mg 09/06/20 19:27 Sodium Bicarbonate 325 Mg Tab FEEDTUBE PRN PRN For Clogged Feeding Tube Nutrition/Malnutrition Assess - Dietary Evaluation Nutrition/Malnutrition Findings: Nutrition Notes Start: 08/23/20 10:57 Freq: Status: Active Protocol: Document 09/09/20 13:02 LP (Rec: 09/09/20 13:25 LP [id number]) Nutrition Notes Initial or Follow up Reassessment Current Diagnosis Acute Kidney Injury,Diabetes, Sepsis Other Pertinent Diagnosis Encephalopathy, COVID-19 (+), GIB, UTI, gastric ulcer, gastritis Current Diet Glucerna 1.2 at 50ml/hr Labs/Tests BG 63,76,66 Pertinent Medications NS at 50ml/hr Height 5 ft 5 in Weight 81.4 kg Virgie Body Weight (kg) 56.81 BMI 29.8 Weight Status Appropriate Subjective/Other Information Pt having low blood sugars and will need to change TF. Pt tolerating TF at goal. RN aware of change. Percent of energy/protein needs met: 100%/100% Burn Absent Trauma Absent GI Symptoms None Current % PO Negligible Minimum of two criteria No Fluid Accumulation Mild (non-severe) #2 Nutrition Diagnosis Increased nutrient needs ( specify in comment below) Diagnosis Progress(for reassessment Continues documentation) #1 Nutrition Diagnosis Inadequate oral intake Diagnosis Progress(for reassessment Continues documentation) Is patient on ventilator? No Is Patient Ambulatory and/or Out of Bed No REE-([facility]-confined to bed) 1536.744 Calculation Used for Recommendations [facility] Additional Notes Protein: 81-97 g 1-1.2 g/kg) Fluid needs 1ml/kcal Nutrition Intervention Change Diet Order: TF Nutrition Support: Change to Jevity 1.2 at 50ml/ hr Flush with 100ml q4h Kcal 1,440 Protein (gm) 67 Fluid (mL) 968 Goal #1 Meet at least 80% of kcal and protein needs Anticipated Discharge Needs: TF Follow-Up By: 09/12/20 Additional Comments Follow for TF change, BG levels
[2020-09-10] MEDS: INSULIN GLARGINE 100 UNITS/ML SUB-Q SCH ×2 (09:39→23:09)
[2020-09-10] MEDS: HYDROCORTISONE 10 MG TAB FEEDTUBE SCH ×2 (09:39→22:33)
[2020-09-10] MEDS: levETIRAcetam 500 MG/5 ML ORAL LIQD FEEDTUBE SCH ×2 (09:39→22:33)
[2020-09-10] MEDS: LANSOPRAZOLE 30 MG SOLUTAB FEEDTUBE SCH (09:39)
[2020-09-10] MEDS: SODIUM CHLORIDE 0.9% 1000 ML 1,000 ML IV SCH (11:15)
--- NOTE | 2020-09-10 17:36 | Progress Note ---
Assessment and Plan Paroxysmal atrial fibrillation rate controlled without AV yoan blocking drugs while in AF - now back in SR further use of long-term anticoagulation will not be recommended at this time, in the setting of the recent GI bleed and severe anemia. 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 Advanced dementia Conservative cardiac management. Subjective Date of service: 09/10/20 Principal diagnosis: Acute encephalopathy Interval history: No acute events Objective Vital Signs Temp Pulse Resp BP Pulse Ox 09/10/20 11:06 97.0 F L 89 18 149/61 100 09/10/20 06:42 99.7 F H 96 H 20 179/74 98 09/09/20 23:20 18 09/09/20 22:50 99.5 F 101 H 20 143/49 100 - Physical Examination General: No Apparent Distress HEENT: Positive: PERRL Neck: Positive: neck supple Cardiac: Positive: irregularly irregular Lungs: Positive: Decreased Breath Sounds Neuro: Positive: Weakness (Generalized lethargy) Abdomen: Positive: Soft Skin: Positive: Clear Extremities: Absent: edema - Imaging and Cardiology EKG: report reviewed
[2020-09-11] MEDS: INSULIN LISPRO 100 UNIT/ML VIAL 3 mL SUB-Q SCH ×4 (00:11→17:38)
[2020-09-11] MEDS: LEVOTHYROXINE 50 MCG TAB FEEDTUBE SCH (05:38)
[2020-09-11 06:12] LABS: Basophils % (Auto) 0.2 % (0.0-1.8); Eosinophils # (Auto) 0.1 K/mm3 (0.0-0.4); Eosinophils % (Auto) 0.8 % (0.0-4.3); Hematocrit 26.5 % (30.3-42.9); Hemoglobin 8.6 gm/dl (10.1-14.3); Lymphocytes % (Auto) 14.6 % (13.4-35.0); Mean Corpuscular HGB Conc 32 % (30-34); Mean Corpuscular Volume 90 fl (79-97); Monocytes # (Auto) 0.4 K/mm3 (0.0-0.8); Monocytes % (Auto) 6.1 % (0.0-7.3); Platelet Count 193 K/mm3 (140-440); Red Blood Count 2.95 M/mm3 (3.65-5.03); Red Cell Distribution Width 16.8 % (13.2-15.2)
[2020-09-11 06:26] LABS: Blood Urea Nitrogen 20 mg/dL (7-17); Hemolysis Index 5
[2020-09-11 06:27] LABS: BUN/Creatinine Ratio 50
--- NOTE | 2020-09-11 09:52 | Progress Note ---
Assessment and Plan Assessment and plan: Acute toxic metabolic encephalopathy: Possibly secondary to infection versus decreased renal function. Extensive skull base meningioma GI bleed/hematochezia. Endoscopic evaluation revealed gastric ulcer. No active bleeding Gastric ulcer. As above. UTI: Urine and blood cultures negative. Continue cefepime per ID recommendation Sepsis: Etiology secondary to above. Acute hypoxic respiratory failure: Currently on 3 L nasal cannula. Unclear if she has discharged on oxygen from bradycardia when she had Covid. 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 D-dimer noted to be 2409.7 and thus empirically started on therapeutic dose anticoagulation. PAWAN: Renally dose medications. 08/24/2020. Patient still mildly confused. However, I suspect patient has underlying Alzheimer's dementia and this is her baseline. I discussed plan of care and altered mentation with sister at [phone]. Patient will need DME of hospital bed and oxygen for discharge home. Await physical therapy recommendations. 08/25/2020. Patient still lethargic and confused. Patient receiving hydrocortisone 50 mg IV twice daily for adrenal insufficiency. Check B12, folate and ammonia levels. Neurology consultation pending. Continue supplemental oxygen to maintain sats greater than 92%. 08/26/2020. Encephalopathy likely secondary to toxic metabolic causes in the setting of leukocytosis, improving uremia, renal insufficiency, covid-19, underlying uti. Check CT head without contrast and EEG per neurology recommendations. However may need csf evaluation if brain imaging and eeg are unremarkable and pt continues to remain encephalopathic. Follow-up cortisol levels and T3-T4. 08/27/2020. Patient remains lethargic and confused. Encephalopathy is persistent and likely secondary to toxic metabolic causes from sepsis, renal insufficiency/uremia, COVID-[address] scan of the head found to be negative. Await EEG. Consider CSF evaluation if EEG unremarkable. Consult GI for further evaluation of hematochezia/GI bleed. Continue Protonix 40 mg IV twice daily. Transfuse for hemoglobin less than 7. Continue to monitor serial CBC. Lovenox discontinued which was empirically started for elevated D-dimer. Patient does have a history of chronic steroids for Dawes's disease. Decrease IV hydrocortisone. Follow-up cortisol levels and T3-T4. I updated the sister and family at [phone]. 08/28/2020. Follow-up EEG per neurology. GI reports if signs of hemodynamic changes, we will proceed with stat bleeding scan. Hemoglobin has dropped to 6.8. Type and cross and transfuse 2 units. Continue to hold anticoagulation. Continue Protonix 40 mg IV twice daily. Nursing reports inability to place NG tube. Place PICC line and start TPN. Dietitian consulted. ? NG tube placement under fluoroscopy. Patient may need PEG tube placement. 08/29/2020. Patient is s/p 3 units PRBCs. Hemoglobin has stabilized to 11.5. Continue to trend and follow serial H/H. Patient remains hemodynamically stable. If patient has a change, we will proceed with stat bleeding scan. GI following. Continue Protonix 40 mg IV twice daily. Continue to hold anticoagulation. Nursing reports inability to place NG tube. PICC line placed to initiate TPN. Dietitian consulted. ? NG tube placement under fluoroscopy. Patient may need PEG tube placement. 08/30/2020. Hemoglobin remained stable. Patient is on TPN and will not be discharged on TPN. NG tube could not be placed as per RN.. Awaiting EEG to rule out any seizures. If no etiology found, patient will benefit from a PEG placement as she has advanced dementia. Continue to hold anticoagulation due to recent GI bleed. GI to reevaluate for PEG placement. 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 Not clear if this is baseline. Need to retrieve her records from previous hospitalization. Neurosurgery consulted for evaluation. 09/01/2020. She is remains confused. Neurology evaluation appreciated. No intervention for brain mass. She is on hydrocortisone for hypopituitary function. Will adjust based on cortisol levels. She will need to have PEG placement for feeds ultimately as she will not be on TPN for a long time. Will reconsult GI for NG tube placement. 09/02. Plan for PEG placement today. She is awake and alert to person only. Vitals stable. 09/03. Had EGD which showed gastritis. Patient will need to have a PEG placement by other means-IR or surgery as per GI. Now on PPI twice daily. Biopsy from gastric ulcer sent. She remains on TPN. Plan to discuss PEG placement IR or surgery. Plan for LP as well. 09/04. Surgery has been consulted for PEG placement. COVID-19 test sent. She remains on TPN. LP still pending 09/05. Patient is awake today but confused. COVID-19 test remains positive. Patients PEG placement may be held for now as per surgery continue Covid infection resolved. She remains on TPN. LP still pending. 09/06. Patient remains confused. COVID-19 test remains positive. Patients PEG placement may be held for now as per surgery continue Covid infection resolved. She remains on TPN. LP still pending. 09/07. Surgery completed laparoscopic-assisted PEG tube placement. Advance tube feeding per dietitian/sponsorship manager recommendations. Patient has had optimal rate control without use of significant AV oyan blocking therapy which suggests underlying conduction system disease per cardiology. Cardiology does not recommend further use of long-term anticoagulation in the setting of recent GI bleed, anemia, AMS and age. I will call the sister to update her regarding care but no answer. Message left. 09/08. Patient tolerating PEG tube feedings. Awaiting LP. Patient remains confused. Continue hydrocortisone for hypopituitary function. Will discuss with neurology further plans . 09/09. Plans for LP to assess confusion. Continue hydrocortisone for hypopituitary function. Will discuss with neurology further plans . 09/10. Continue hydrocortisone 10 mg daily. Keppra 750 mg daily. Patient tolerating tube feedings. Discussed with neurology further plans regarding encephalopathy. 09/11. Patient much more verbal this morning. Patient appears to be potentially back to baseline. We will discuss with family. Patient remains in sinus rhythm. No long-term anticoagulation given recent GI bleed, gastric ulcer, anemia and advanced dementia. Continue to monitor H&H and transfuse for hemoglobin less than 7. Continue PPI. History Interval history: No new issues Hospitalist Physical - Constitutional Vitals: Temp Pulse Resp BP Pulse Ox 99.0 F 82 16 128/52 99 09/11/20 05:56 09/11/20 05:56 09/11/20 05:56 09/11/20 05:56 09/11/20 05:56 General appearance: Present: no acute distress, well-nourished, other (Lethargic and confused) - EENT Eyes: Present: PERRL, EOM intact ENT: hearing intact, clear oral mucosa, dentition normal - Neck Neck: Present: supple, normal ROM - Respiratory Respiratory effort: normal Respiratory: bilateral: CTA - Cardiovascular Rhythm: regular Heart Sounds: Present: S1 & S2. Absent: gallop, rub - Extremities Extremities: no ischemia, No edema, Full ROM - Abdominal General gastrointestinal: soft, non-tender, non-distended, normal bowel sounds - Integumentary Integumentary: Present: clear, warm, dry - Neurologic Neurologic: CNII-XII intact, moves all extremities HEART Score - HEART Score Troponin: Troponin T 0.075 ng/mL (0.00-0.029) H 08/18/20 18:25 Troponin: 1-3x normal limit - Critical Actions Critical Actions: 4-6 pts:12-16.6% risk of adverse cardiac event. Should be admitted Results - Labs CBC & Chem 7: 09/11/20 05:44 09/11/20 05:44 Labs: Laboratory Last Values WBC 6.6 K/mm3 (4.5-11.0) 09/11/20 05:44 RBC 2.95 M/mm3 (3.65-5.03) L 09/11/20 05:44 Hgb 8.6 gm/dl (10.1-14.3) L 09/11/20 05:44 Hct 26.5 % (30.3-42.9) L 09/11/20 05:44 MCV 90 fl (79-97) 09/11/20 05:44 MCH 29 pg (28-32) 09/11/20 05:44 MCHC 32 % (30-34) 09/11/20 05:44 RDW 16.8 % (13.2-15.2) H 09/11/20 05:44 Plt Count 193 K/mm3 (140-440) 09/11/20 05:44 Lymph % (Auto) 14.6 % (13.4-35.0) 09/11/20 05:44 [place] % (Auto) 6.1 % (0.0-7.3) 09/11/20 05:44 Eos % (Auto) 0.8 % (0.0-4.3) 09/11/20 05:44 Baso % (Auto) 0.2 % (0.0-1.8) 09/11/20 05:44 Lymph # (Auto) 1.0 K/mm3 (1.2-5.4) L 09/11/20 05:44 [place] # (Auto) 0.4 K/mm3 (0.0-0.8) 09/11/20 05:44 Eos # (Auto) 0.1 K/mm3 (0.0-0.4) 09/11/20 05:44 Baso # (Auto) 0.0 K/mm3 (0.0-0.1) 09/11/20 05:44 Add Manual Diff Complete 08/31/20 06:20 Total Counted 100 08/31/20 06:20 Seg Neutrophils % 78.3 % (40.0-70.0) H 09/11/20 05:44 Seg Neuts % (Manual) 87.0 % (40.0-70.0) H 08/31/20 06:20 Band Neutrophils % 1.0 % 08/31/20 06:20 Lymphocytes % (Manual) 5.0 % (13.4-35.0) L 08/31/20 06:20 Reactive Lymphs % (Man) 1.0 % 08/28/20 10:07 Monocytes % (Manual) 5.0 % (0.0-7.3) 08/31/20 06:20 Metamyelocytes % 2.0 % 08/31/20 06:20 Nucleated RBC % Not Reportable 08/31/20 06:20 Seg Neutrophils # 5.2 K/mm3 (1.8-7.7) 09/11/20 05:44 Seg Neutrophils # Man 15.1 K/mm3 (1.8-7.7) H 08/31/20 06:20 Band Neutrophils # 0.2 K/mm3 08/31/20 06:20 Lymphocytes # (Manual) 0.9 K/mm3 (1.2-5.4) L 08/31/20 06:20 Abs React Lymphs (Man) 0.0 K/mm3 08/31/20 06:20 Monocytes # (Manual) 0.9 K/mm3 (0.0-0.8) H 08/31/20 06:20 Eosinophils # (Manual) 0.0 K/mm3 (0.0-0.4) 08/31/20 06:20 Basophils # (Manual) 0.0 K/mm3 (0.0-0.1) 08/31/20 06:20 Metamyelocytes # 0.3 K/mm3 08/31/20 06:20 Myelocytes # 0.0 K/mm3 08/31/20 06:20 Promyelocytes # 0.0 K/mm3 08/31/20 06:20 Blast Cells # 0.0 K/mm3 08/31/20 06:20 WBC Morphology Not Reportable 08/31/20 06:20 Hypersegmented Neuts Not Reportable 08/31/20 06:20 Hyposegmented Neuts Not Reportable 08/31/20 06:20 Hypogranular Neuts Not Reportable 08/31/20 06:20 Smudge Cells Not Reportable 08/31/20 06:20 Toxic Granulation Not Reportable 08/31/20 06:20 Toxic Vacuolation Not Reportable 08/31/20 06:20 Dohle Bodies Not Reportable 08/31/20 06:20 Pelger-Huet Anomaly Not Reportable 08/31/20 06:20 Marie Rods Not Reportable 08/31/20 06:20 Platelet Estimate Consistent w auto 08/31/20 06:20 Clumped Platelets Not Reportable 08/31/20 06:20 Plt Clumps, EDTA Not Reportable 08/31/20 06:20 Large Platelets Not Reportable 08/31/20 06:20 Giant Platelets Not Reportable 08/31/20 06:20 Platelet Satelliting Not Reportable 08/31/20 06:20 Plt Morphology Comment Not Reportable 08/31/20 06:20 RBC Morphology Not Reportable 08/31/20 06:20 Dimorphic RBCs Not Reportable 08/31/20 06:20 Polychromasia Not Reportable 08/31/20 06:20 Hypochromasia Not Reportable 08/31/20 06:20 Poikilocytosis Not Reportable 08/31/20 06:20 Anisocytosis 1+ 08/31/20 06:20 Microcytosis Not Reportable 08/31/20 06:20 Macrocytosis Not Reportable 08/31/20 06:20 Spherocytes Not Reportable 08/31/20 06:20 Pappenheimer Bodies Not Reportable 08/31/20 06:20 Sickle Cells Not Reportable 08/31/20 06:20 Target Cells Not Reportable 08/31/20 06:20 Tear Drop Cells Not Reportable 08/31/20 06:20 Ovalocytes Not Reportable 08/31/20 06:20 Helmet Cells Not Reportable 08/31/20 06:20 [place] Bodies Not Reportable 08/31/20 06:20 Ericson Rings Not Reportable 08/31/20 06:20 Randolph Cells Not Reportable 08/31/20 06:20 Bite Cells Not Reportable 08/31/20 06:20 Crenated Cell Not Reportable 08/31/20 06:20 Elliptocytes Not Reportable 08/31/20 06:20 Acanthocytes (Spur) Not Reportable 08/31/20 06:20 Rouleaux Not Reportable 08/31/20 06:20 Hemoglobin C Crystals Not Reportable 08/31/20 06:20 Schistocytes Not Reportable 08/31/20 06:20 Malaria parasites Not Reportable 08/31/20 06:20 [place]am Bodies Not Reportable 08/31/20 06:20 Hem Pathologist Commnt No 08/31/20 06:20 PT 15.7 Sec. (12.2-14.9) H 09/09/20 09:44 INR 1.25 (0.87-1.13) H 09/09/20 09:44 APTT 45.2 Sec. (24.2-36.6) H 09/09/20 09:44 D-Dimer 2409.74 ng/mlDDU (0-234) H 08/18/20 Unknown Sodium 146 mmol/L (137-145) H 09/11/20 05:44 Potassium 3.4 mmol/L (3.6-5.0) L 09/11/20 05:44 Chloride 113.3 mmol/L (98-107) H 09/11/20 05:44 Carbon Dioxide 28 mmol/L (22-30) 09/11/20 05:44 Anion Gap 8 mmol/L 09/11/20 05:44 BUN 20 mg/dL (7-17) H 09/11/20 05:44 Creatinine 0.4 mg/dL (0.6-1.2) L 09/11/20 05:44 Estimated GFR > 60 ml/min 09/11/20 05:44 BUN/Creatinine Ratio 50 % 09/11/20 05:44 Glucose 148 mg/dL (65-100) H 09/11/20 05:44 POC Glucose 137 mg/dL (70-105) H 09/11/20 05:35 Lactic Acid 1.00 mmol/L (0.7-2.0) 08/18/20 18:25 Calcium 7.0 mg/dL (8.4-10.2) L 09/11/20 05:44 Phosphorus 5.50 mg/dL (2.5-4.5) H 09/08/20 04:52 Magnesium 2.10 mg/dL (1.7-2.3) 09/08/20 04:52 Ferritin 1950.0 ng/mL (10.0-200.0) H 08/18/20 15:35 Total Bilirubin 0.50 mg/dL (0.1-1.2) 09/04/20 05:57 AST 11 units/L (5-40) 09/04/20 05:57 ALT 8 units/L (7-56) 09/04/20 05:57 Alkaline Phosphatase 59 units/L (35-129) 09/04/20 05:57 Ammonia 32.0 umol/L (25-60) 08/25/20 09:06 Lactate Dehydrogenase 228 units/L (91-180) H 08/18/20 15:35 Total Creatine Kinase 164 units/L (30-135) H 08/22/20 19:44 Troponin T 0.075 ng/mL (0.00-0.029) H 08/18/20 18:25 C-Reactive Protein 35.60 mg/dL (0.00-1.30) H 08/18/20 15:35 Total Protein 4.2 g/dL (6.3-8.2) L 09/04/20 05:57 Albumin 2.5 g/dL (3.9-5) L 09/04/20 05:57 Albumin/Globulin Ratio 1.5 % 09/04/20 05:57 Triglycerides 70 mg/dL (2-149) 08/31/20 06:20 Cholesterol 79 mg/dL (50-199) 08/18/20 18:25 LDL Cholesterol Direct 42 mg/dL (50-130) L 08/18/20 18:25 HDL Cholesterol 23 mg/dL (40-59) L 08/18/20 18:25 Cholesterol/HDL Ratio 3.43 % 08/18/20 18:25 Vitamin B12 721.0 pg/mL (211-911) 08/25/20 09:06 Folate 8.34 ng/mL (7.3-26.0) 08/25/20 09:06 Procalcitonin 4.00 ng/mL (<0.15) 08/18/20 15:35 TSH 0.056 mlU/mL (0.270-4.200) L 08/24/20 17:02 Free T4 1.59 ng/dL (0.76-1.46) H 08/26/20 10:22 Free T3 Index 1.2 pg/mL (2.3-4.2) L 08/26/20 10:22 Total Cortisol 37.6 mcg/dL () 09/02/20 05:30 Urine Color Yellow (Yellow) 09/08/20 06:14 Urine Turbidity Turbid (Clear) 09/08/20 06:14 Urine pH 5.0 (5.0-7.0) 09/08/20 06:14 Ur Specific [place] 1.009 (1.003-1.030) 09/08/20 06:14 Urine Protein 100 mg/dl mg/dL (Negative) 09/08/20 06:14 Urine Glucose (UA) Neg mg/dL (Negative) 09/08/20 06:14 Urine Ketones Neg mg/dL (Negative) 09/08/20 06:14 Urine Blood Lg (Negative) 09/08/20 06:14 Urine Nitrite Neg (Negative) 09/08/20 06:14 Urine Bilirubin Neg (Negative) 09/08/20 06:14 Urine Urobilinogen < 2.0 mg/dL (<2.0) 09/08/20 06:14 Ur Leukocyte Esterase Mod (Negative) 09/08/20 06:14 Urine WBC (Auto) > 182.0 /HPF (0.0-6.0) H 09/08/20 06:14 Urine RBC (Auto) > 182.0 /HPF (0.0-6.0) 09/08/20 06:14 U Epithel Cells (Auto) 1.0 /HPF (0-13.0) 08/18/20 Unknown Urine Bacteria (Auto) 4+ /HPF (Negative) 09/08/20 06:14 Urine WBC Clumps 3+ /HPF 09/08/20 06:14 Urine Mucus 1+ /HPF 09/08/20 06:14 Ur Yeast w Hyphae 2+ /HPF 09/08/20 06:14 Urine Yeast (Budding) 2+ /HPF 09/08/20 06:14 Random Vancomycin 9.8 ug/mL (0-40.0) 08/19/20 19:02 Coronavirus (PCR) Positive (Negative) A 09/04/20 10:27 Blood Type O POSITIVE 08/27/20 20:44 Antibody Screen Negative 08/27/20 20:44 Crossmatch See Detail 08/27/20 20:44 [place]/IV: Voiding Method Diaper IV Catheter Type [Left Hand] INT / Saline Lock IV Catheter Type [Left Triple Lumen Cath Internal Jugular] IV Catheter Type [Left] CVL Active Medications - Current Medications Current Medications: Generic Name Dose Route Start Last Admin Trade Name Freq PRN Reason Stop Dose Admin Acetaminophen 650 mg 09/07/20 19:17 09/07/20 22:50 Acetaminophen 325 Mg/10.15 Ml Oral Liqd Unit Dose FEEDTUBE 650 mg Q6H PRN Administration Pain, Mild (1-3) Lipase/Protease/Amylase 1 each 09/06/20 19:27 Lipase 10,500/Protease 25,000/Amylase 43,750 (Units) Dr Fernandez FEEDTUBE PRN PRN For Clogged Feeding Tube Atropine Sulfate 1 mg 08/23/20 16:56 Atropine 1 Mg/Ml Vial IV PRN PRN Bradycardia Clonidine HCl 0.2 mg 08/31/20 22:00 09/07/20 22:48 Clonidine Tts 0.2 Mg/24 Hr Patch TD 0.2 mg We BARBARA Administration Hydralazine HCl 5 mg 08/31/20 21:22 09/06/20 23:43 Hydralazine 20 Mg/1 Ml Inj IV 5 mg Q4H PRN Administration Blood Pressure Hydrocortisone Acetate 10 mg 09/07/20 22:00 09/10/20 22:33 Hydrocortisone 10 Mg Tab FEEDTUBE 10 mg Q12HR BARBARA Administration Sodium Chloride 1,000 mls @ 50 mls/hr 09/02/20 14:30 09/10/20 11:15 Nacl 0.9% 1000 Ml IV 50 mls/hr DIRECT BARBARA Administration Insulin Glargine 5 units 09/03/20 22:00 09/10/20 23:09 Insulin Glargine 100 Units/Ml SUB-Q 5 units BID BARBARA Administration Insulin Human Lispro 0 unit 09/07/20 12:00 09/11/20 05:38 Insulin Lispro 100 Unit/Ml Vial 3 Ml SUB-Q Not Given Q6H BARBARA Protocol Lansoprazole 30 mg 09/08/20 10:00 09/10/20 09:39 Lansoprazole 30 Mg Solutab FEEDTUBE 30 mg QDAY BARBARA Administration Levetiracetam 750 mg 09/07/20 22:00 09/10/20 22:33 Levetiracetam 500 Mg/5 Ml Oral Liqd FEEDTUBE 750 mg BID BARBARA Administration Levothyroxine Sodium 50 mcg 09/08/20 06:00 09/11/20 05:38 Levothyroxine 50 Mcg Tab FEEDTUBE 50 mcg DAILY@0600 BARBARA Administration Ondansetron HCl 4 mg 09/07/20 19:17 Ondansetron 4 Mg/2 Ml Inj IV Q8H PRN Nausea Simple Syrup 15 ml 09/06/20 19:27 Simple Syrup 15 Ml FEEDTUBE PRN PRN Hypoglycemia Simple Syrup 30 ml 09/06/20 19:27 Simple Syrup 15 Ml FEEDTUBE PRN PRN Hypoglycemia Sodium Bicarbonate 325 mg 09/06/20 19:27 Sodium Bicarbonate 325 Mg Tab FEEDTUBE PRN PRN For Clogged Feeding Tube Nutrition/Malnutrition Assess - Dietary Evaluation Nutrition/Malnutrition Findings: Nutrition Notes Start: 08/23/20 10: 57 Freq: Status: Active Protocol: Document 09/09/20 13:02 LP (Rec: 09/09/20 13:25 LP [id number]) Nutrition Notes Initial or Follow up Reassessment Current Diagnosis Acute Kidney Injury,Diabetes, Sepsis Other Pertinent Diagnosis Encephalopathy, COVID-19 (+), GIB, UTI, gastric ulcer, gastritis Current Diet Glucerna 1.2 at 50ml/hr Labs/Tests BG 63,76,66 Pertinent Medications NS at 50ml/hr Height 5 ft 5 in Weight 81.4 kg Gideon Body Weight (kg) 56.81 BMI 29.8 Weight Status Appropriate Subjective/Other Information Pt having low blood sugars and will need to change TF. Pt tolerating TF at goal. RN aware of change. Percent of energy/protein needs met: 100%/100% Burn Absent Trauma Absent GI Symptoms None Current % PO Negligible Minimum of two criteria No Fluid Accumulation Mild (non-severe) #2 Nutrition Diagnosis Increased nutrient needs ( specify in comment below) Diagnosis Progress(for reassessment Continues documentation) #1 Nutrition Diagnosis Inadequate oral intake Diagnosis Progress(for reassessment Continues documentation) Is patient on ventilator? No Is Patient Ambulatory and/or Out of Bed No REE-([facility]-confined to bed) 1536.744 Calculation Used for Recommendations [facility] Additional Notes Protein: 81-97 g 1-1.2 g/kg) Fluid needs 1ml/kcal Nutrition Intervention Change Diet Order: TF Nutrition Support: Change to Jevity 1.2 at 50ml/ hr Flush with 100ml q4h Kcal 1,440 Protein (gm) 67 Fluid (mL) 968 Goal #1 Meet at least 80% of kcal and protein needs Anticipated Discharge Needs: TF Follow-Up By: 09/12/20 Additional Comments Follow for TF change, BG levels
[2020-09-11] MEDS: LANSOPRAZOLE 30 MG SOLUTAB FEEDTUBE SCH (11:37)
[2020-09-11] MEDS: INSULIN GLARGINE 100 UNITS/ML SUB-Q SCH ×2 (11:38→21:25)
[2020-09-11] MEDS: HYDROCORTISONE 10 MG TAB FEEDTUBE SCH ×2 (11:38→21:25)
[2020-09-11] MEDS: levETIRAcetam 500 MG/5 ML ORAL LIQD FEEDTUBE SCH ×2 (11:38→21:25)
[2020-09-11] MEDS: SODIUM CHLORIDE 0.9% 1000 ML 1,000 ML IV SCH (11:44)
--- NOTE | 2020-09-11 14:49 | Progress Note ---
Assessment and Plan Paroxysmal atrial fibrillation rate controlled without AV yoan blocking drugs while in AF - now back in SR further use of long-term anticoagulation will not be recommended at this time, in the setting of the recent GI bleed and severe anemia. 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 Advanced dementia Conservative cardiac management. Subjective Date of service: 09/11/20 Principal diagnosis: Acute encephalopathy Interval history: No acute events Objective Vital Signs Temp Pulse Resp BP Pulse Ox 09/11/20 11:46 98.2 F 79 18 143/53 99 09/11/20 05:56 99.0 F 82 16 128/52 99 09/10/20 23:47 97.7 F 70 16 89/32 100 09/10/20 16:29 97.6 F 85 20 149/59 100 - Physical Examination General: No Apparent Distress HEENT: Positive: PERRL Neck: Positive: neck supple Cardiac: Positive: Reg Rate and Rhythm Lungs: Positive: Rhonchi Neuro: Positive: Weakness (Generalized lethargy) Abdomen: Positive: Soft Skin: Positive: Clear Extremities: Absent: edema - Labs and Meds CBC 09/11/20 Range/Units 05:44 WBC 6.6 (4.5-11.0) K/mm3 RBC 2.95 L (3.65-5.03) M/mm3 Hgb 8.6 L (10.1-14.3) gm/dl Hct 26.5 L (30.3-42.9) % Plt Count 193 (140-440) K/mm3 Lymph # (Auto) 1.0 L (1.2-5.4) K/mm3 [place] # (Auto) 0.4 (0.0-0.8) K/mm3 Eos # (Auto) 0.1 (0.0-0.4) K/mm3 Baso # (Auto) 0.0 (0.0-0.1) K/mm3 Comprehensive Metabolic Panel 09/11/20 Range/Units 05:44 Sodium 146 H (137-145) mmol/L Potassium 3.4 L (3.6-5.0) mmol/L Chloride 113.3 H (98-107) mmol/L Carbon Dioxide 28 (22-30) mmol/L BUN 20 H (7-17) mg/dL Creatinine 0.4 L (0.6-1.2) mg/dL Glucose 148 H (65-100) mg/dL Calcium 7.0 L (8.4-10.2) mg/dL - Imaging and Cardiology EKG: report reviewed
[2020-09-12] MEDS: LEVOTHYROXINE 50 MCG TAB FEEDTUBE SCH (05:47)
[2020-09-12] MEDS: INSULIN LISPRO 100 UNIT/ML VIAL 3 mL SUB-Q SCH ×4 (05:47→17:37)
[2020-09-12] MEDS: SODIUM CHLORIDE 0.9% 1000 ML 1,000 ML IV SCH (06:26)
[2020-09-12] MEDS ORDERED: FOLIC ACID 0.4 MG PO SCH (10:00)
[2020-09-12] MEDS: LANSOPRAZOLE 30 MG SOLUTAB FEEDTUBE SCH (10:51)
[2020-09-12] MEDS: FOLIC ACID 1 MG TAB PO SCH (10:51)
[2020-09-12] MEDS: CYANOCOBALAMIN (VIT B-12) 1000 MCG TAB PO SCH (10:51)
[2020-09-12] MEDS: INSULIN GLARGINE 100 UNITS/ML SUB-Q SCH ×2 (10:51→21:14)
[2020-09-12] MEDS: HYDROCORTISONE 10 MG TAB FEEDTUBE SCH ×2 (10:51→21:13)
[2020-09-12] MEDS: levETIRAcetam 500 MG/5 ML ORAL LIQD FEEDTUBE SCH ×2 (10:51→21:14)
[2020-09-12] MEDS: amLODIPine 5 MG TAB PO SCH (14:05)
--- NOTE | 2020-09-12 15:09 | Progress Note ---
Assessment and Plan Assessment and plan: Sepsis -Patient presented with tachycardia, hypotension, tachypnea, leukocytosis, febrile, acute kidney injury, urinary tract infection -Patient found to have urinary tract infection 11 by urinary analysis -08/18 blood cultures x2 no growth to date -08/18 urine culture no growth to date -Infectious disease consulted,appreciate recommendations -S/p antibiotic therapy Acute toxic metabolic encephalopathy -Possibly secondary to infection versus PAWAN -Patient has baseline dementia -Supportive care -Aspiration/fall precautions -LP pending Extensive skull base meningioma -Noted on CT head -Neurosurgery consulted, appreciate recommendations -No acute intervention indicated at this time per neurosurgery GI bleed/hematochezia -Endoscopic evaluation revealed gastric ulcer. 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 -Patient developed GI bleed and therapeutic anticoagulation was stopped Leukocytosis, resolved -Admit WBC 20.3 -S/p antibiotic therapy -Trend CBC -09/11 WBC 6.6 -Patient is on chronic steroid therapy for Mehran's disease Hypernatremia -Presented with a sodium of 146 which trended down but then trended back up to 150 and is now 146 -Trend BMP -Free water flush Hyperchloremia -Patient's chloride trended up to 119.3 -09/12 chloride 110 -Trend BMP -Free water flush Seizure disorder -Resume home Keppra -Seizure precautions -Supportive care Acute kidney injury, resolved -S/p MIVF -Presented with creatinine/BUN of 3.5/55 -Patient's creatinine has trended down to 0.3 and BUN 17 -Avoid nephrotoxic medications -Renally dose medications -Strict urine output -Secondary to base water nephropathy Urinary tract infection -08/18/2020 urinalysis shows trace leukocyte Estrace and pyuria -08/18 urine culture negative -S/p antibiotic therapy Hypertension -Patient presented with hypotension -Resume home antihypertensive regimen and adjust as needed when appropriate -Blood pressure monitoring per protocol DVT prophylaxis -SCDs to bilateral lower extremities while in bed -Chemical prophylaxis contraindicated secondary to acute GI bleed History Interval history: The patient is an 80-year-old woman with advanced dementia who lives in a care home, Clyde's disease, hypertension, vitamin D deficiency, seizure disorder, and hyperlipidemia who presents the emergency department for altered mental status. On presentation to the emergency room, her white count was mary edly elevated at 20,000, low grade fever, PAWAN with BUN 55 and creatinine of 3.5 and elevated Mell as well as meningioma on CT head. Neurosurgery, cardiology, nephrology, heme-onc and infectious disease were consulted. At the time of my exam patient continuously removes her supplemental oxygenation based on her forehead. Her SPO2 is in the high 90s on room air therefore RN was instructed to decrease oxygenation off. This morning RN was instructed to remove CVL as it is somewhat pulled back and to obtain a peripheral IV. Patient will have her lumbar puncture done today. 08/24/2020. Patient still mildly confused. However, I suspect patient has underlying Alzheimer's dementia and this is her baseline. I discussed plan of care and altered mentation with sister at [phone]. Patient will need DME of hospital bed and oxygen for discharge home. Await physical therapy recommendations. 08/25/2020. Patient still lethargic and confused. Patient receiving hydrocortisone 50 mg IV twice daily for adrenal insufficiency. Check B12, folate and ammonia levels. Neurology consultation pending. Continue supplemental oxygen to maintain sats greater than 92%. 08/26/2020. Encephalopathy likely secondary to toxic metabolic causes in the setting of leukocytosis, improving uremia, renal insufficiency, covid-19, underlying uti. Check CT head without contrast and EEG per neurology recommenda tions. However may need csf evaluation if brain imaging and eeg are unremarkable and pt continues to remain encephalopathic. Follow-up cortisol levels and T3-T4. 08/27/2020. Patient remains lethargic and confused. Encephalopathy is persistent and likely secondary to toxic metabolic causes from sepsis, renal insufficiency/uremia, COVID-[address] scan of the head found to be negative. Await EEG. Consider CSF evaluation if EEG unremarkable. Consult GI for further evaluation of hematochezia/GI bleed. Continue Protonix 40 mg IV twice daily. Transfuse for hemoglobin less than 7. Continue to monitor serial CBC. Lovenox discontinued which was empirically started for elevated D-dimer. 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 Decrease IV hydrocortisone. Follow-up cortisol levels and T3-T4. I updated the sister and family at [phone]. 08/28/2020. Follow-up EEG per neurology. GI reports if signs of hemodynamic changes, we will proceed with stat bleeding scan. Hemoglobin has dropped to 6.8. Type and cross and transfuse 2 units. Continue to hold anticoagulation. Continue Protonix 40 mg IV twice daily. Nursing reports inability to place NG tube. Place PICC line and start TPN. Dietitian consulted. ? NG tube placement under fluoroscopy. Patient may need PEG tube placement. 08/29/2020. Patient is s/p 3 units PRBCs. Hemoglobin has stabilized to 11.5. Continue to trend and follow serial H/H. Patient remains hemodynamically stable. If patient has a change, we will proceed with stat bleeding scan. GI following. Continue Protonix 40 mg IV twice daily. Continue to hold anticoagulation. Nursing reports inability to place NG tube. PICC line placed to initiate TPN. Dietitian consulted. ? NG tube placement under fluoroscopy. Patient may need PEG tube placement. 08/30/2020. Hemoglobin remained stable. Patient is on TPN and will not be discharged on TPN. NG tube could not be placed as per RN.. Awaiting EEG to rule out any seizures. If no etiology found, patient will benefit from a PEG placement as she has advanced dementia. Continue to hold anticoagulation due to recent GI bleed. GI to reevaluate for PEG placement. 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 Not clear if this is baseline. Need to retrieve her records from previous hospitalization. Neurosurgery consulted for evaluation. 09/01/2020. She is remains confused. Neurology evaluation appreciated. No intervention for brain mass. She is on hydrocortisone for hypopituitary function. Will adjust based on cortisol levels. She will need to have PEG placement for feeds ultimately as she will not be on TPN for a long time. Will reconsult GI for NG tube placement. 09/02. Plan for PEG placement today. She is awake and alert to person only. Vitals stable. 09/03. Had EGD which showed gastritis. Patient will need to have a PEG placement by other means-IR or surgery as per GI. Now on PPI twice daily. Biopsy from gastric ulcer sent. She remains on TPN. Plan to discuss PEG placement IR or surgery. Plan for LP as well. 09/04. Surgery has been consulted for PEG placement. COVID-19 test sent. She remains on TPN. LP still pending 09/05. Patient is awake today but confused. COVID-19 test remains positive. Patients PEG placement may be held for now as per surgery continue Covid infection resolved. She remains on TPN. LP still pending. 09/06. Patient remains confused. COVID-19 test remains positive. Patients PEG placement may be held for now as per surgery continue Covid infection resolved. She remains on TPN. LP still pending. 09/07. Surgery completed laparoscopic-assisted PEG tube placement. Advance tube feeding per dietitian/environmental health and safety manager recommendations. Patient has had optimal rate control without use of significant AV yoan blocking therapy which suggests underlying conduction system disease per cardiology. Cardiology does not recommend further use of long-term anticoagulation in the setting of recent GI bleed, anemia, AMS and age. I will call the sister to update her regarding care but no answer. Message left. 09/08. Patient tolerating PEG tube feedings. Awaiting LP. Patient remains confused. Continue hydrocortisone for hypopituitary function. Will discuss with neurology further plans . 09/09. Plans for LP to assess confusion. Continue hydrocortisone for hypopituitary function. Will discuss with neurology further plans . 09/10. Continue hydrocortisone 10 mg daily. Keppra 750 mg daily. Patient tolerating tube feedings. Discussed with neurology further plans regarding encephalopathy. 09/11. Patient much more verbal this morning. Patient appears to be potentially back to baseline. We will discuss with family. Patient remains in sinus rhythm. No long-term anticoagulation given recent GI bleed, gastric ulcer, anemia and advanced dementia. Continue to monitor H&H and transfuse for hemoglobin less than 7. Continue PPI. Hospitalist Physical - Constitutional Vitals: Temp Pulse Resp BP Pulse Ox 97.9 F 82 19 155/94 99 09/12/20 12:08 09/12/20 12:08 09/12/20 12:08 09/12/20 12:08 09/12/20 12:08 General appearance: Present: no acute distress, well-nourished, other (Lethargic and confused) - EENT Eyes: Present: PERRL, EOM intact ENT: hearing decreased, poor dentition - Neck Neck: Present: normal ROM - Respiratory Respiratory effort: normal - Cardiovascular Rhythm: regular - Extremities Extremities: no ischemia, pulses intact, pulses symmetrical, No edema, normal temperature, normal color, Full ROM Peripheral Pulses: within normal limits - Abdominal General gastrointestinal: soft, non-tender, non-distended, normal bowel sounds - Integumentary Integumentary: Present: clear, warm, dry - Psychiatric Psychiatric: cooperative - Neurologic Neurologic: CNII-XII intact, no focal deficits, moves all extremities - Allied Health Allied health notes reviewed: nursing, social work, case management HEART Score - HEART Score Troponin: Troponin T 0.075 ng/mL (0.00-0.029) H 08/18/20 18:25 Troponin: 1-3x normal limit - Critical Actions Critical Actions: 4-6 pts:12-16.6% risk of adverse cardiac event. Should be admitted Results - Labs CBC & Chem 7: 09/11/20 05:44 09/12/20 14:38 Labs: Laboratory Last Values WBC 6.6 K/mm3 (4.5-11.0) 09/11/20 05:44 RBC 2.95 M/mm3 (3.65-5.03) L 09/11/20 05:44 Hgb 8.6 gm/dl (10.1-14.3) L 09/11/20 05:44 Hct 26.5 % (30.3-42.9) L 09/11/20 05:44 MCV 90 fl (79-97) 09/11/20 05:44 MCH 29 pg (28-32) 09/11/20 05:44 MCHC 32 % (30-34) 09/11/20 05:44 RDW 16.8 % (13.2-15.2) H 09/11/20 05:44 Plt Count 193 K/mm3 (140-440) 09/11/20 05:44 Lymph % (Auto) 14.6 % (13.4-35.0) 09/11/20 05:44 [place] % (Auto) 6.1 % (0.0-7.3) 09/11/20 05:44 Eos % (Auto) 0.8 % (0.0-4.3) 09/11/20 05:44 Baso % (Auto) 0.2 % (0.0-1.8) 09/11/20 05:44 Lymph # (Auto) 1.0 K/mm3 (1.2-5.4) L 09/11/20 05:44 [place] # (Auto) 0.4 K/mm3 (0.0-0.8) 09/11/20 05:44 Eos # (Auto) 0.1 K/mm3 (0.0-0.4) 09/11/20 05:44 Baso # (Auto) 0.0 K/mm3 (0.0-0.1) 09/11/20 05:44 Add Manual Diff Complete 08/31/20 06:20 Total Counted 100 08/31/20 06:20 Seg Neutrophils % 78.3 % (40.0-70.0) H 09/11/20 05:44 Seg Neuts % (Manual) 87.0 % (40.0-70.0) H 08/31/20 06:20 Band Neutrophils % 1.0 % 08/31/20 06:20 Lymphocytes % (Manual) 5.0 % (13.4-35.0) L 08/31/20 06:20 Reactive Lymphs % (Man) 1.0 % 08/28/20 10:07 Monocytes % (Manual) 5.0 % (0.0-7.3) 08/31/20 06:20 Metamyelocytes % 2.0 % 08/31/20 06:20 Nucleated RBC % Not Reportable 08/31/20 06:20 Seg Neutrophils # 5.2 K/mm3 (1.8-7.7) 09/11/20 05:44 Seg Neutrophils # Man 15.1 K/mm3 (1.8-7.7) H 08/31/20 06:20 Band Neutrophils # 0.2 K/mm3 08/31/20 06:20 Lymphocytes # (Manual) 0.9 K/mm3 (1.2-5.4) L 08/31/20 06:20 Abs React Lymphs (Man) 0.0 K/mm3 08/31/20 06:20 Monocytes # (Manual) 0.9 K/mm3 (0.0-0.8) H 08/31/20 06:20 Eosinophils # (Manual) 0.0 K/mm3 (0.0-0.4) 08/31/20 06:20 Basophils # (Manual) 0.0 K/mm3 (0.0-0.1) 08/31/20 06:20 Metamyelocytes # 0.3 K/mm3 08/31/20 06:20 Myelocytes # 0.0 K/mm3 08/31/20 06:20 Promyelocytes # 0.0 K/mm3 08/31/20 06:20 Blast Cells # 0.0 K/mm3 08/31/20 06:20 WBC Morphology Not Reportable 08/31/20 06:20 Hypersegmented Neuts Not Reportable 08/31/20 06:20 Hyposegmented Neuts Not Reportable 08/31/20 06:20 Hypogranular Neuts Not Reportable 08/31/20 06:20 Smudge Cells Not Reportable 08/31/20 06:20 Toxic Granulation Not Reportable 08/31/20 06:20 Toxic Vacuolation Not Reportable 08/31/20 06:20 Dohle Bodies Not Reportable 08/31/20 06:20 Pelger-Huet Anomaly Not Reportable 08/31/20 06:20 Marie Rods Not Reportable 08/31/20 06:20 Platelet Estimate Consistent w auto 08/31/20 06:20 Clumped Platelets Not Reportable 08/31/20 06:20 Plt Clumps, EDTA Not Reportable 08/31/20 06:20 Large Platelets Not Reportable 08/31/20 06:20 Giant Platelets Not Reportable 08/31/20 06:20 Platelet Satelliting Not Reportable 08/31/20 06:20 Plt Morphology Comment Not Reportable 08/31/20 06:20 RBC Morphology Not Reportable 08/31/20 06:20 Dimorphic RBCs Not Reportable 08/31/20 06:20 Polychromasia Not Reportable 08/31/20 06:20 Hypochromasia Not Reportable 08/31/20 06:20 Poikilocytosis Not Reportable 08/31/20 06:20 Anisocytosis 1+ 08/31/20 06:20 Microcytosis Not Reportable 08/31/20 06:20 Macrocytosis Not Reportable 08/31/20 06:20 Spherocytes Not Reportable 08/31/20 06:20 Pappenheimer Bodies Not Reportable 08/31/20 06:20 Sickle Cells Not Reportable 08/31/20 06:20 Target Cells Not Reportable 08/31/20 06:20 Tear Drop Cells Not Reportable 08/31/20 06:20 Ovalocytes Not Reportable 08/31/20 06:20 Helmet Cells Not Reportable 08/31/20 06:20 [place] Bodies Not Reportable 08/31/20 06:20 [place] Rings Not Reportable 08/31/20 06:20 [place] Cells Not Reportable 08/31/20 06:20 Bite Cells Not Reportable 08/31/20 06:20 Crenated Cell Not Reportable 08/31/20 06:20 Elliptocytes Not Reportable 08/31/20 06:20 Acanthocytes (Spur) Not Reportable 08/31/20 06:20 Rouleaux Not Reportable 08/31/20 06:20 Hemoglobin C Crystals Not Reportable 08/31/20 06:20 Schistocytes Not Reportable 08/31/20 06:20 Malaria parasites Not Reportable 08/31/20 06:20 [place] Bodies Not Reportable 08/31/20 06:20 Hem Pathologist Commnt No 08/31/20 06:20 PT 15.7 Sec. (12.2-14.9) H 09/09/20 09:44 INR 1.25 (0.87-1.13) H 09/09/20 09:44 APTT 45.2 Sec. (24.2-36.6) H 09/09/20 09:44 D-Dimer 2409.74 ng/mlDDU (0-234) H 08/18/20 Unknown Sodium 146 mmol/L (137-145) H 09/11/20 05:44 Potassium 3.4 mmol/L (3.6-5.0) L 09/11/20 05:44 Chloride 113.3 mmol/L (98-107) H 09/11/20 05:44 Carbon Dioxide 28 mmol/L (22-30) 09/11/20 05:44 Anion Gap 8 mmol/L 09/11/20 05:44 BUN 20 mg/dL (7-17) H 09/11/20 05:44 Creatinine 0.4 mg/dL (0.6-1.2) L 09/11/20 05:44 Estimated GFR > 60 ml/min 09/11/20 05:44 BUN/Creatinine Ratio 50 % 09/11/20 05:44 Glucose 148 mg/dL (65-100) H 09/11/20 05:44 POC Glucose 105 mg/dL (70-105) 09/12/20 12:07 Lactic Acid 1.00 mmol/L (0.7-2.0) 08/18/20 18:25 Calcium 7.0 mg/dL (8.4-10.2) L 09/11/20 05:44 Phosphorus 5.50 mg/dL (2.5-4.5) H 09/08/20 04:52 Magnesium 2.10 mg/dL (1.7-2.3) 09/08/20 04:52 Ferritin 1950.0 ng/mL (10.0-200.0) H 08/18/20 15:35 Total Bilirubin 0.50 mg/dL (0.1-1.2) 09/04/20 05:57 AST 11 units/L (5-40) 09/04/20 05:57 ALT 8 units/L (7-56) 09/04/20 05:57 Alkaline Phosphatase 59 units/L (35-129) 09/04/20 05:57 Ammonia 32.0 umol/L (25-60) 08/25/20 09:06 Lactate Dehydrogenase 228 units/L (91-180) H 08/18/20 15:35 Total Creatine Kinase 164 units/L (30-135) H 08/22/20 19:44 Troponin T 0.075 ng/mL (0.00-0.029) H 08/18/20 18:25 C-Reactive Protein 35.60 mg/dL (0.00-1.30) H 08/18/20 15:35 Total Protein 4.2 g/dL (6.3-8.2) L 09/04/20 05:57 Albumin 2.5 g/dL (3.9-5) L 09/04/20 05:57 Albumin/Globulin Ratio 1.5 % 09/04/20 05:57 Triglycerides 70 mg/dL (2-149) 08/31/20 06:20 Cholesterol 79 mg/dL (50-199) 08/18/20 18:25 LDL Cholesterol Direct 42 mg/dL (50-130) L 08/18/20 18:25 HDL Cholesterol 23 mg/dL (40-59) L 08/18/20 18:25 Cholesterol/HDL Ratio 3.43 % 08/18/20 18:25 Vitamin B12 721.0 pg/mL (211-911) 08/25/20 09:06 Folate 8.34 ng/mL (7.3-26.0) 08/25/20 09:06 Procalcitonin 4.00 ng/mL (<0.15) 08/18/20 15:35 TSH 0.056 mlU/mL (0.270-4.200) L 08/24/20 17:02 Free T4 1.59 ng/dL (0.76-1.46) H 08/26/20 10:22 Free T3 Index 1.2 pg/mL (2.3-4.2) L 08/26/20 10:22 Total Cortisol 37.6 mcg/dL () 09/02/20 05:30 Urine Color Yellow (Yellow) 09/08/20 06:14 Urine Turbidity Turbid (Clear) 09/08/20 06:14 Urine pH 5.0 (5.0-7.0) 09/08/20 06:14 Ur Specific [place] 1.009 (1.003-1.030) 09/08/20 06:14 Urine Protein 100 mg/dl mg/dL (Negative) 09/08/20 06:14 Urine Glucose (UA) Neg mg/dL (Negative) 09/08/20 06:14 Urine Ketones Neg mg/dL (Negative) 09/08/20 06:14 Urine Blood Lg (Negative) 09/08/20 06:14 Urine Nitrite Neg (Negative) 09/08/20 06:14 Urine Bilirubin Neg (Negative) 09/08/20 06:14 Urine Urobilinogen < 2.0 mg/dL (<2.0) 09/08/20 06:14 Ur Leukocyte Esterase Mod (Negative) 09/08/20 06:14 Urine WBC (Auto) > 182.0 /HPF (0.0-6.0) H 09/08/20 06:14 Urine RBC (Auto) > 182.0 /HPF (0.0-6.0) 09/08/20 06:14 U Epithel Cells (Auto) 1.0 /HPF (0-13.0) 08/18/20 Unknown Urine Bacteria (Auto) 4+ /HPF (Negative) 09/08/20 06:14 Urine WBC Clumps 3+ /HPF 09/08/20 06:14 Urine Mucus 1+ /HPF 09/08/20 06:14 Ur Yeast w Hyphae 2+ /HPF 09/08/20 06:14 Urine Yeast (Budding) 2+ /HPF 09/08/20 06:14 Random Vancomycin 9.8 ug/mL (0-40.0) 08/19/20 19:02 Coronavirus (PCR) Positive (Negative) A 09/04/20 10:27 Blood Type O POSITIVE 08/27/20 20:44 Antibody Screen Negative 08/27/20 20:44 Crossmatch See Detail 08/27/20 20:44 [place]/IV: Voiding Method Indwelling Catheter IV Catheter Type [Left Forearm INT / Saline Lock ] IV Catheter Type [Left Hand] INT / Saline Lock IV Catheter Type [Left Triple Lumen Cath Internal Jugular] IV Catheter Type [Left] CVL Active Medications - Current Medications Current Medications: Generic Name Dose Route Start Last Admin Trade Name Freq PRN Reason Stop Dose Admin Acetaminophen 650 mg 09/07/20 19:17 09/07/20 22:50 Acetaminophen 325 Mg/10.15 Ml Oral Liqd Unit Dose FEEDTUBE 650 mg Q6H PRN Administration Pain, Mild (1-3) Amlodipine Besylate 5 mg 09/12/20 10:00 09/12/20 14:05 Amlodipine 5 Mg Tab PO 5 mg DAILY BARBARA Administration Lipase/Protease/Amylase 1 each 09/06/20 19:27 Lipase 10,500/Protease 25,000/Amylase 43,750 (Units) Dr Fernandez FEEDTUBE PRN PRN For Clogged Feeding Tube Atorvastatin Calcium 20 mg 09/12/20 22:00 Atorvastatin 20 Mg Tab PO QHS BARBARA Atropine Sulfate 1 mg 08/23/20 16:56 Atropine 1 Mg/Ml Vial IV PRN PRN Bradycardia Clonidine HCl 0.2 mg 08/31/20 22:00 09/07/20 22:48 Clonidine Tts 0.2 Mg/24 Hr Patch TD 0.2 mg We BARBARA Administration Cyanocobalamin 1,000 mcg 09/12/20 10:00 09/12/20 10:51 Cyanocobalamin (Vit B-12) 1000 Mcg Tab PO 1,000 mcg DAILY BARBARA Administration Folic Acid 1 mg 09/12/20 10:00 09/12/20 10:51 Folic Acid 1 Mg Tab PO 1 mg DAILY BARBARA Administration Hydralazine HCl 5 mg 08/31/20 21:22 09/06/20 23:43 Hydralazine 20 Mg/1 Ml Inj IV 5 mg Q4H PRN Administration Blood Pressure Hydrocortisone Acetate 10 mg 09/07/20 22:00 09/12/20 10:51 Hydrocortisone 10 Mg Tab FEEDTUBE 10 mg Q12HR BARBARA Administration Sodium Chloride 1,000 mls @ 50 mls/hr 09/02/20 14:30 09/12/20 06:26 Nacl 0.9% 1000 Ml IV 50 mls/hr DIRECT BARBARA Administration Insulin Glargine 5 units 09/03/20 22:00 09/12/20 10:51 Insulin Glargine 100 Units/Ml SUB-Q 5 units BID BARBARA Administration Insulin Human Lispro 0 unit 09/07/20 12:00 09/12/20 13:16 Insulin Lispro 100 Unit/Ml Vial 3 Ml SUB-Q Not Given Q6H [facility] Protocol Lansoprazole 30 mg 09/08/20 10:00 09/12/20 10:51 Lansoprazole 30 Mg Solutab FEEDTUBE 30 mg QDAY BARBARA Administration Levetiracetam 750 mg 09/07/20 22:00 09/12/20 10:51 Levetiracetam 500 Mg/5 Ml Oral Liqd FEEDTUBE 750 mg BID BARBARA Administration Levothyroxine Sodium 50 mcg 09/08/20 06:00 09/12/20 05:47 Levothyroxine 50 Mcg Tab FEEDTUBE 50 mcg DAILY@0600 BARBARA Administration Ondansetron HCl 4 mg 09/07/20 19:17 Ondansetron 4 Mg/2 Ml Inj IV Q8H PRN Nausea Simple Syrup 15 ml 09/06/20 19:27 09/11/20 23:38 Simple Syrup 15 Ml FEEDTUBE 15 ml PRN PRN Administration Hypoglycemia Simple Syrup 30 ml 09/06/20 19:27 Simple Syrup 15 Ml FEEDTUBE PRN PRN Hypoglycemia Sodium Bicarbonate 325 mg 09/06/20 19:27 Sodium Bicarbonate 325 Mg Tab FEEDTUBE PRN PRN For Clogged Feeding Tube Nutrition/Malnutrition Assess - Dietary Evaluation Nutrition/Malnutrition Findings: Nutrition Notes Start: 08/23/20 10:57 Freq: Status: Active Protocol: Document 09/12/20 13:56 MK (Rec: 09/12/20 14:00 [id number]) Nutrition Notes Initial or Follow up Reassessment Current Diagnosis Acute Kidney Injury,Diabetes, Sepsis Other Pertinent Diagnosis Encephalopathy, COVID-19 (+), GIB, UTI, gastric ulcer, gastritis Current Diet Glucerna 1.2 at 50ml/hr Labs/Tests 09/11: Na 146 K 3.4 BUN 20 POC BG 107-64 Pertinent Medications Lantus Height 5 ft 5 in Weight 81.4 kg [place] Body Weight (kg) 56.81 BMI 29.8 Weight Status Appropriate Subjective/Other Information FU for TF tolerance. Pt BG appear to be slightly improved . Per chart, pt tolerating TF. Percent of energy/protein needs met: 94%/83% Burn Absent Trauma Absent GI Symptoms None Current % PO Negligible Minimum of two criteria No Fluid Accumulation Mild (non-severe) #2 Nutrition Diagnosis Increased nutrient needs ( specify in comment below) Diagnosis Progress(for reassessment Continues documentation) #1 Nutrition Diagnosis Inadequate oral intake Diagnosis Progress(for reassessment Continues documentation) Is patient on ventilator? No Is Patient Ambulatory and/or Out of Bed No REE-([facility]-confined to bed) 1536.744 Calculation Used for Recommendations [facility] Additional Notes Protein: 81-97 g 1-1.2 g/kg) Fluid needs 1ml/kcal Nutrition Intervention Change Diet Order: Continue TF Nutrition Support: Jevity 1.2 at 50ml/hr Flush with 100ml q4h Kcal 1,440 Protein (gm) 67 Fluid (mL) 968 Goal #1 Meet at least 80% of kcal and protein needs Anticipated Discharge Needs: TF Follow-Up By: 09/14/20 Additional Comments FU for TF tolerance, BG control
[2020-09-12 15:27] LABS: BUN/Creatinine Ratio 57; Blood Urea Nitrogen 17 mg/dL (7-17); Calcium 7.1 mg/dL (8.4-10.2); Hemolysis Index 7
[2020-09-13] MEDS: INSULIN LISPRO 100 UNIT/ML VIAL 3 mL SUB-Q SCH ×4 (00:44→18:35)
[2020-09-13] MEDS: LEVOTHYROXINE 50 MCG TAB FEEDTUBE SCH (06:43)
[2020-09-13] MEDS ORDERED: LIDOCAINE (2%) 20 MG/1 ML VIAL 20 ML MDV INFILTRATI ONE (07:13)
--- NOTE | 2020-09-13 09:42 | Progress Note ---
Assessment and Plan Paroxysmal atrial fibrillation currently in sinus rhythm rate control has been optimal without use of significant AV yoan blocking therapy, suggesting underlying conduction system disease. further use of long-term anticoagulation will not be recommended at this time, in the setting of the recent GI bleed and severe anemia. 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 Subjective Date of service: 09/13/20 Principal diagnosis: Acute encephalopathy Interval history: No interval cardiac changes. Stable sinus rhythm on telemetry. Objective Vital Signs Temp Pulse Resp BP Pulse Ox 09/13/20 04:43 97.2 F L 72 16 145/69 99 09/12/20 22:00 20 09/12/20 21:14 98.2 F 70 20 141/67 100 09/12/20 16:58 97.9 F 78 20 148/43 100 09/12/20 12:08 97.9 F 82 19 155/94 99 - Physical Examination Narrative exam: Deferred due to isolation protocol. Cardiac: Positive: Reg Rate and Rhythm - Labs and Meds Comprehensive Metabolic Panel 09/12/20 Range/Units 14:38 Sodium 143 (137-145) mmol/L Potassium 3.7 (3.6-5.0) mmol/L Chloride 110.4 H (98-107) mmol/L Carbon Dioxide 29 (22-30) mmol/L BUN 17 (7-17) mg/dL Creatinine 0.3 L (0.6-1.2) mg/dL Glucose 141 H (65-100) mg/dL Calcium 7.1 L (8.4-10.2) mg/dL
[2020-09-13] MEDS: INSULIN GLARGINE 100 UNITS/ML SUB-Q SCH ×2 (10:00→23:06)
[2020-09-13] MEDS: amLODIPine 5 MG TAB PO SCH (10:37)
[2020-09-13] MEDS: levETIRAcetam 500 MG/5 ML ORAL LIQD FEEDTUBE SCH ×2 (10:37→23:07)
[2020-09-13] MEDS: HYDROCORTISONE 10 MG TAB FEEDTUBE SCH ×2 (10:37→23:08)
[2020-09-13] MEDS: FOLIC ACID 1 MG TAB PO SCH (11:40)
[2020-09-13] MEDS: LANSOPRAZOLE 30 MG SOLUTAB FEEDTUBE SCH (11:41)
[2020-09-13] MEDS: CYANOCOBALAMIN (VIT B-12) 1000 MCG TAB PO SCH (11:41)
--- NOTE | 2020-09-13 12:44 | Progress Note ---
History Interval history: The patient is an 80-year-old woman with advanced dementia who lives in a [place] [facility] [place], Claiborne's disease, hypertension, vitamin D deficiency, seizure disorder, and hyperlipidemia who presents the emergency department for altered mental status. On presentation to the emergency room, her white count was markedly elevated at 20,000, low grade fever, PAWAN with BUN 55 and creatinine of 3.5 and elevated Mell as well as meningioma on CT head. Neurosurgery, cardiology, nephrology, heme-onc and infectious disease were consulted. Patient is scheduled for lumbar puncture today. Patient remains on room air no acute events reported overnight. Her CVL has been removed. 08/24/2020. Patient still mildly confused. However, I suspect patient has underlying Alzheimer's dementia and this is her baseline. I discussed plan of care and altered mentation with sister at [phone]. Patient will need DME of hospital bed and oxygen for discharge home. Await physical therapy recommendations. 08/25/2020. Patient still lethargic and confused. Patient receiving hydrocortisone 50 mg IV twice daily for adrenal insufficiency. Check B12, folate and ammonia levels. Neurology consultation pending. Continue supplemental oxygen to maintain sats greater than 92%. 08/26/2020. Encephalopathy likely secondary to toxic metabolic causes in the setting of leukocytosis, improving uremia, renal insufficiency, covid-19, underlying uti. Check CT head without contrast and EEG per neurology recommendations. However may need csf evaluation if brain imaging and eeg are unremarkable and pt continues to remain encephalopathic. Follow-up cortisol levels and T3-T4. 08/27/2020. Patient remains lethargic and confused. Encephalopathy is persistent and likely secondary to toxic metabolic causes from sepsis, renal insufficiency/uremia, COVID-[address] scan of the head found to be negative. Await EEG. Consider CSF evaluation if EEG unremarkable. Consult GI for further evaluation of hematochezia/GI bleed. Continue Protonix 40 mg IV twice daily. Transfuse for hemoglobin less than 7. Continue to monitor serial CBC. Lovenox discontinued which was empirically started for elevated D-dimer. 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 Decrease IV hydrocortisone. Follow-up cortisol levels and T3-T4. I updated the sister and family at [phone]. 08/28/2020. Follow-up EEG per neurology. GI reports if signs of hemodynamic changes, we will proceed with stat bleeding scan. Hemoglobin has dropped to 6.8. Type and cross and transfuse 2 units. Continue to hold anticoagulation. Continue Protonix 40 mg IV twice daily. Nursing reports inability to place NG tube. Place PICC line and start TPN. Dietitian consulted. ? NG tube placement under fluoroscopy. Patient may need PEG tube placement. 08/29/2020. Patient is s/p 3 units PRBCs. Hemoglobin has stabilized to 11.5. C ontinue to trend and follow serial H/H. Patient remains hemodynamically stable. If patient has a change, we will proceed with stat bleeding scan. GI following. Continue Protonix 40 mg IV twice daily. Continue to hold anticoagulation. Nursing reports inability to place NG tube. PICC line placed to initiate TPN. Dietitian consulted. ? NG tube placement under fluoroscopy. Patient may need PEG tube placement. 08/30/2020. Hemoglobin remained stable. Patient is on TPN and will not be disc harged on TPN. NG tube could not be placed as per RN.. Awaiting EEG to rule out any seizures. If no etiology found, patient will benefit from a PEG placement as she has advanced dementia. Continue to hold anticoagulation due to recent GI bleed. GI to reevaluate for PEG placement. 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 Not clear if this is baseline. Need to retrieve her records from previous hospitalization. Neurosurgery consulted for evaluation. 09/01/2020. She is remains confused. Neurology evaluation appreciated. No intervention for brain mass. She is on hydrocortisone for hypopituitary function. Will adjust based on cortisol levels. She will need to have PEG placement for feeds ultimately as she will not be on TPN for a long time. Will reconsult GI for NG tube placement. 09/02. Plan for PEG placement today. She is awake and alert to person only. Vitals stable. 09/03. Had EGD which showed gastritis. Patient will need to have a PEG placement by other means-IR or surgery as per GI. Now on PPI twice daily. Biopsy from gastric ulcer sent. She remains on TPN. Plan to discuss PEG placement IR or surgery. Plan for LP as well. 09/04. Surgery has been consulted for PEG placement. COVID-19 test sent. She remains on TPN. LP still pending 09/05. Patient is awake today but confused. COVID-19 test remains positive. Patients PEG placement may be held for now as per surgery continue Covid infection resolved. She remains on TPN. LP still pending. 09/06. Patient remains confused. COVID-19 test remains positive. Patients PEG placement may be held for now as per surgery continue Covid infection resolved. She remains on TPN. LP still pending. 09/07. Surgery completed laparoscopic-assisted PEG tube placement. Advance tube feeding per dietitian/presales consultant recommendations. Patient has had optimal rate control without use of significant AV yoan blocking therapy which suggests underlying conduction system disease per cardiology. Cardiology does not recommend further use of long-term anticoagulation in the setting of recent GI bleed, anemia, AMS and age. I will call the sister to update her regarding care but no answer. Message left. 09/08. Patient tolerating PEG tube feedings. Awaiting LP. Patient remains confused. Continue hydrocortisone for hypopituitary function. Will discuss with neurology further plans . 09/09. Plans for LP to assess confusion. Continue hydrocortisone for hypopituitary function. Will discuss with neurology further plans . 09/10. Continue hydrocortisone 10 mg daily. Keppra 750 mg daily. Patient tolerating tube feedings. Discussed with neurology further plans regarding encephalopathy. 09/11. Patient much more verbal this morning. Patient appears to be potentially back to baseline. We will discuss with family. Patient remains in sinus rhythm. No long-term anticoagulation given recent GI bleed, gastric ulcer, anemia and advanced dementia. Continue to monitor H&H and transfuse for hemoglobin less than 7. Continue PPI. 09/12: Continuously removes her supplemental oxygenation and places it on her forehead. Her SPO2 is in the high 90s on room air therefore RN was instructed to decrease oxygenation off. This morning RN was instructed to remove CVL as it is somewhat pulled back and to obtain a peripheral IV. Patient will have her lumbar puncture done today. Hospitalist Physical - Constitutional Vitals: Temp Pulse Resp BP Pulse Ox 98.6 F 74 18 147/68 100 09/13/20 10:50 09/13/20 10:41 09/13/20 10:41 09/13/20 10:47 09/13/20 10:41 General appearance: Present: no acute distress, well-nourished, other (Lethargic and confused) - EENT Eyes: Present: EOM intact ENT: hearing intact, dentition normal - Neck Neck: Present: normal ROM - Respiratory Respiratory effort: normal - Cardiovascular Rhythm: regular - Extremities Extremities: no ischemia, pulses intact, pulses symmetrical, No edema, normal temperature, normal color, Full ROM Peripheral Pulses: within normal limits - Abdominal General gastrointestinal: soft, non-tender, non-distended, normal bowel sounds - Integumentary Integumentary: Present: clear, warm, dry - Psychiatric Psychiatric: appropriate mood/affect, cooperative - Neurologic Neurologic: CNII-XII intact, no focal deficits, moves all extremities HEART Score - HEART Score Troponin: Troponin T 0.075 ng/mL (0.00-0.029) H 08/18/20 18:25 Troponin: 1-3x normal limit - Critical Actions Critical Actions: 4-6 pts:12-16.6% risk of adverse cardiac event. Should be admitted Results - Labs CBC & Chem 7: 09/11/20 05:44 09/12/20 14:38 Labs: Laboratory Last Values WBC 6.6 K/mm3 (4.5-11.0) 09/11/20 05:44 RBC 2.95 M/mm3 (3.65-5.03) L 09/11/20 05:44 Hgb 8.6 gm/dl (10.1-14.3) L 09/11/20 05:44 Hct 26.5 % (30.3-42.9) L 09/11/20 05:44 MCV 90 fl (79-97) 09/11/20 05:44 MCH 29 pg (28-32) 09/11/20 05:44 MCHC 32 % (30-34) 09/11/20 05:44 RDW 16.8 % (13.2-15.2) H 09/11/20 05:44 Plt Count 193 K/mm3 (140-440) 09/11/20 05:44 Lymph % (Auto) 14.6 % (13.4-35.0) 09/11/20 05:44 [place] % (Auto) 6.1 % (0.0-7.3) 09/11/20 05:44 Eos % (Auto) 0.8 % (0.0-4.3) 09/11/20 05:44 Baso % (Auto) 0.2 % (0.0-1.8) 09/11/20 05:44 Lymph # (Auto) 1.0 K/mm3 (1.2-5.4) L 09/11/20 05:44 [place] # (Auto) 0.4 K/mm3 (0.0-0.8) 09/11/20 05:44 Eos # (Auto) 0.1 K/mm3 (0.0-0.4) 09/11/20 05:44 Baso # (Auto) 0.0 K/mm3 (0.0-0.1) 09/11/20 05:44 Add Manual Diff Complete 08/31/20 06:20 Total Counted 100 08/31/20 06:20 Seg Neutrophils % 78.3 % (40.0-70.0) H 09/11/20 05:44 Seg Neuts % (Manual) 87.0 % (40.0-70.0) H 08/31/20 06:20 Band Neutrophils % 1.0 % 08/31/20 06:20 Lymphocytes % (Manual) 5.0 % (13.4-35.0) L 08/31/20 06:20 Reactive Lymphs % (Man) 1.0 % 08/28/20 10:07 Monocytes % (Manual) 5.0 % (0.0-7.3) 08/31/20 06:20 Metamyelocytes % 2.0 % 08/31/20 06:20 Nucleated RBC % Not Reportable 08/31/20 06:20 Seg Neutrophils # 5.2 K/mm3 (1.8-7.7) 09/11/20 05:44 Seg Neutrophils # Man 15.1 K/mm3 (1.8-7.7) H 08/31/20 06:20 Band Neutrophils # 0.2 K/mm3 08/31/20 06:20 Lymphocytes # (Manual) 0.9 K/mm3 (1.2-5.4) L 08/31/20 06:20 Abs React Lymphs (Man) 0.0 K/mm3 08/31/20 06:20 Monocytes # (Manual) 0.9 K/mm3 (0.0-0.8) H 08/31/20 06:20 Eosinophils # (Manual) 0.0 K/mm3 (0.0-0.4) 08/31/20 06:20 Basophils # (Manual) 0.0 K/mm3 (0.0-0.1) 08/31/20 06:20 Metamyelocytes # 0.3 K/mm3 08/31/20 06:20 Myelocytes # 0.0 K/mm3 08/31/20 06:20 Promyelocytes # 0.0 K/mm3 08/31/20 06:20 Blast Cells # 0.0 K/mm3 08/31/20 06:20 WBC Morphology Not Reportable 08/31/20 06:20 Hypersegmented Neuts Not Reportable 08/31/20 06:20 Hyposegmented Neuts Not Reportable 08/31/20 06:20 Hypogranular Neuts Not Reportable 08/31/20 06:20 Smudge Cells Not Reportable 08/31/20 06:20 Toxic Granulation Not Reportable 08/31/20 06:20 Toxic Vacuolation Not Reportable 08/31/20 06:20 Dohle Bodies Not Reportable 08/31/20 06:20 Pelger-Huet Anomaly Not Reportable 08/31/20 06:20 Marie Rods Not Reportable 08/31/20 06:20 Platelet Estimate Consistent w auto 08/31/20 06:20 Clumped Platelets Not Reportable 08/31/20 06:20 Plt Clumps, EDTA Not Reportable 08/31/20 06:20 Large Platelets Not Reportable 08/31/20 06:20 Giant Platelets Not Reportable 08/31/20 06:20 Platelet Satelliting Not Reportable 08/31/20 06:20 Plt Morphology Comment Not Reportable 08/31/20 06:20 RBC Morphology Not Reportable 08/31/20 06:20 Dimorphic RBCs Not Reportable 08/31/20 06:20 Polychromasia Not Reportable 08/31/20 06:20 Hypochromasia Not Reportable 08/31/20 06:20 Poikilocytosis Not Reportable 08/31/20 06:20 Anisocytosis 1+ 08/31/20 06:20 Microcytosis Not Reportable 08/31/20 06:20 Macrocytosis Not Reportable 08/31/20 06:20 Spherocytes Not Reportable 08/31/20 06:20 Pappenheimer Bodies Not Reportable 08/31/20 06:20 Sickle Cells Not Reportable 08/31/20 06:20 Target Cells Not Reportable 08/31/20 06:20 Tear Drop Cells Not Reportable 08/31/20 06:20 Ovalocytes Not Reportable 08/31/20 06:20 Helmet Cells Not Reportable 08/31/20 06:[address] [place] Bodies Not Reportable 08/31/20 06:20 [place] Rings Not Reportable 08/31/20 06:20 [place] Cells Not Reportable 08/31/20 06:20 Bite Cells Not Reportable 08/31/20 06:20 Crenated Cell Not Reportable 08/31/20 06:20 Elliptocytes Not Reportable 08/31/20 06:20 Acanthocytes (Spur) Not Reportable 08/31/20 06:20 Rouleaux Not Reportable 08/31/20 06:20 Hemoglobin C Crystals Not Reportable 08/31/20 06:20 Schistocytes Not Reportable 08/31/20 06:20 Malaria parasites Not Reportable 08/31/20 06:20 [place] Bodies Not Reportable 08/31/20 06:20 Hem Pathologist Commnt No 08/31/20 06:20 PT 15.7 Sec. (12.2-14.9) H 09/09/20 09:44 INR 1.25 (0.87-1.13) H 09/09/20 09:44 APTT 45.2 Sec. (24.2-36.6) H 09/09/20 09:44 D-Dimer 2409.74 ng/mlDDU (0-234) H 08/18/20 Unknown Sodium 143 mmol/L (137-145) 09/12/20 14:38 Potassium 3.7 mmol/L (3.6-5.0) 09/12/20 14:38 Chloride 110.4 mmol/L (98-107) H 09/12/20 14:38 Carbon Dioxide 29 mmol/L (22-30) 09/12/20 14:38 Anion Gap 7 mmol/L 09/12/20 14:38 BUN 17 mg/dL (7-17) 09/12/20 14:38 Creatinine 0.3 mg/dL (0.6-1.2) L 09/12/20 14:38 Estimated GFR > 60 ml/min 09/12/20 14:38 BUN/Creatinine Ratio 57 % 09/12/20 14:38 Glucose 141 mg/dL (65-100) H 09/12/20 14:38 POC Glucose 102 mg/dL (70-105) 09/13/20 05:12 Lactic Acid 1.00 mmol/L (0.7-2.0) 08/18/20 18:25 Calcium 7.1 mg/dL (8.4-10.2) L 09/12/20 14:38 Phosphorus 5.50 mg/dL (2.5-4.5) H 09/08/20 04:52 Magnesium 2.10 mg/dL (1.7-2.3) 09/08/20 04:52 Ferritin 1950.0 ng/mL (10.0-200.0) H 08/18/20 15:35 Total Bilirubin 0.50 mg/dL (0.1-1.2) 09/04/20 05:57 AST 11 units/L (5-40) 09/04/20 05:57 ALT 8 units/L (7-56) 09/04/20 05:57 Alkaline Phosphatase 59 units/L (35-129) 09/04/20 05:57 Ammonia 32.0 umol/L (25-60) 08/25/20 09:06 Lactate Dehydrogenase 228 units/L (91-180) H 08/18/20 15:35 Total Creatine Kinase 164 units/L (30-135) H 08/22/20 19:44 Troponin T 0.075 ng/mL (0.00-0.029) H 08/18/20 18:25 C-Reactive Protein 35.60 mg/dL (0.00-1.30) H 08/18/20 15:35 Total Protein 4.2 g/dL (6.3-8.2) L 09/04/20 05:57 Albumin 2.5 g/dL (3.9-5) L 09/04/20 05:57 Albumin/Globulin Ratio 1.5 % 09/04/20 05:57 Triglycerides 70 mg/dL (2-149) 08/31/20 06:20 Cholesterol 79 mg/dL (50-199) 08/18/20 18:25 LDL Cholesterol Direct 42 mg/dL (50-130) L 08/18/20 18:25 HDL Cholesterol 23 mg/dL (40-59) L 08/18/20 18:25 Cholesterol/HDL Ratio 3.43 % 08/18/20 18:25 Vitamin B12 721.0 pg/mL (211-911) 08/25/20 09:06 Folate 8.34 ng/mL (7.3-26.0) 08/25/20 09:06 Procalcitonin 4.00 ng/mL (<0.15) 08/18/20 15:35 TSH 0.056 mlU/mL (0.270-4.200) L 08/24/20 17:02 Free T4 1.59 ng/dL (0.76-1.46) H 08/26/20 10:22 Free T3 Index 1.2 pg/mL (2.3-4.2) L 08/26/20 10:22 Total Cortisol 37.6 mcg/dL () 09/02/20 05:30 Urine Color Yellow (Yellow) 09/08/20 06:14 Urine Turbidity Turbid (Clear) 09/08/20 06:14 Urine pH 5.0 (5.0-7.0) 09/08/20 06:14 Ur Specific [place] 1.009 (1.003-1.030) 09/08/20 06:14 Urine Protein 100 mg/dl mg/dL (Negative) 09/08/20 06:14 Urine Glucose (UA) Neg mg/dL (Negative) 09/08/20 06:14 Urine Ketones Neg mg/dL (Negative) 09/08/20 06:14 Urine Blood Lg (Negative) 09/08/20 06:14 Urine Nitrite Neg (Negative) 09/08/20 06:14 Urine Bilirubin Neg (Negative) 09/08/20 06:14 Urine Urobilinogen < 2.0 mg/dL (<2.0) 09/08/20 06:14 Ur Leukocyte Esterase Mod (Negative) 09/08/20 06:14 Urine WBC (Auto) > 182.0 /HPF (0.0-6.0) H 09/08/20 06:14 Urine RBC (Auto) > 182.0 /HPF (0.0-6.0) 09/08/20 06:14 U Epithel Cells (Auto) 1.0 /HPF (0-13.0) 08/18/20 Unknown Urine Bacteria (Auto) 4+ /HPF (Negative) 09/08/20 06:14 Urine WBC Clumps 3+ /HPF 09/08/20 06:14 Urine Mucus 1+ /HPF 09/08/20 06:14 Ur Yeast w Hyphae 2+ /HPF 09/08/20 06:14 Urine Yeast (Budding) 2+ /HPF 09/08/20 06:14 Random Vancomycin 9.8 ug/mL (0-40.0) 08/19/20 19:02 Coronavirus (PCR) Positive (Negative) A 09/04/20 10:27 Blood Type O POSITIVE 08/27/20 20:44 Antibody Screen Negative 08/27/20 20:44 Crossmatch See Detail 08/27/20 20:44 [place]/IV: Voiding Method Indwelling Catheter IV Catheter Type [] INT / Saline Lock IV Catheter Type [Left Forearm INT / Saline Lock ] IV Catheter Type [Left Hand] INT / Saline Lock IV Catheter Type [Left Triple Lumen Cath Internal Jugular] IV Catheter Type [Left] CVL Active Medications - Current Medications Current Medications: Generic Name Dose Route Start Last Admin Trade Name Freq PRN Reason Stop Dose Admin Acetaminophen 650 mg 09/07/20 19:17 09/07/20 22:50 Acetaminophen 325 Mg/10.15 Ml Oral Liqd Unit Dose FEEDTUBE 650 mg Q6H PRN Administration Pain, Mild (1-3) Amlodipine Besylate 5 mg 09/12/20 10:00 09/13/20 10:37 Amlodipine 5 Mg Tab PO 5 mg DAILY ABRBARA Administration Lipase/Protease/Amylase 1 each 09/06/20 19:27 Lipase 10,500/Protease 25,000/Amylase 43,750 (Units) Dr Fernandez FEEDTUBE PRN PRN For Clogged Feeding Tube Atorvastatin Calcium 20 mg 09/12/20 22:00 09/12/20 21:13 Atorvastatin 20 Mg Tab PO 20 mg QHS BARBARA Administration Atropine Sulfate 1 mg 08/23/20 16:56 Atropine 1 Mg/Ml Vial IV PRN PRN Bradycardia Clonidine HCl 0.2 mg 08/31/20 22:00 09/07/20 22:48 Clonidine Tts 0.2 Mg/24 Hr Patch TD 0.2 mg We BARBARA Administration Cyanocobalamin 1,000 mcg 09/12/20 10:00 09/13/20 11:41 Cyanocobalamin (Vit B-12) 1000 Mcg Tab PO Not Given DAILY [facility] Folic Acid 1 mg 09/12/20 10:00 09/13/20 11:40 Folic Acid 1 Mg Tab PO Not Given DAILY [facility] Hydralazine HCl 5 mg 08/31/20 21:22 09/06/20 23:43 Hydralazine 20 Mg/1 Ml Inj IV 5 mg Q4H PRN Administration Blood Pressure Hydrocortisone Acetate 10 mg 09/07/20 22:00 09/13/20 10:37 Hydrocortisone 10 Mg Tab FEEDTUBE 10 mg Q12HR BARBARA Administration Sodium Chloride 1,000 mls @ 50 mls/hr 09/02/20 14:30 09/12/20 06:26 Nacl 0.9% 1000 Ml IV 50 mls/hr DIRECT BARBARA Administration Insulin Glargine 5 units 09/03/20 22:00 09/13/20 10:00 Insulin Glargine 100 Units/Ml SUB-Q Not Given BID [facility] Insulin Human Lispro 0 unit 09/07/20 12:00 09/13/20 06:43 Insulin Lispro 100 Unit/Ml Vial 3 Ml SUB-Q Not Given Q6H [facility] Protocol Lansoprazole 30 mg 09/08/20 10:00 09/13/20 11:41 Lansoprazole 30 Mg Solutab FEEDTUBE Not Given QDAY [facility] Levetiracetam 750 mg 09/07/20 22:00 09/13/20 10:37 Levetiracetam 500 Mg/5 Ml Oral Liqd FEEDTUBE 750 mg BID BARBARA Administration Levothyroxine Sodium 50 mcg 09/08/20 06:00 09/13/20 06:43 Levothyroxine 50 Mcg Tab FEEDTUBE 50 mcg DAILY@0600 [facility] Administration Ondansetron HCl 4 mg 09/07/20 19:17 Ondansetron 4 Mg/2 Ml Inj IV Q8H PRN Nausea Simple Syrup 15 ml 09/06/20 19:27 09/11/20 23:38 Simple Syrup 15 Ml FEEDTUBE 15 ml PRN PRN Administration Hypoglycemia Simple Syrup 30 ml 09/06/20 19:27 Simple Syrup 15 Ml FEEDTUBE PRN PRN Hypoglycemia Sodium Bicarbonate 325 mg 09/06/20 19:27 Sodium Bicarbonate 325 Mg Tab FEEDTUBE PRN PRN For Clogged Feeding Tube Nutrition/Malnutrition Assess - Dietary Evaluation Nutrition/Malnutrition Findings: Nutrition Notes Start: 08/23/20 10:57 Freq: Status: Active Protocol: Document 09/12/20 13:56 MK (Rec: 09/12/20 14:00 MK [email or web address]) Nutrition Notes Initial or Follow up Reassessment Current Diagnosis Acute Kidney Injury,Diabetes, Sepsis Other Pertinent Diagnosis Encephalopathy, COVID-19 (+), GIB, UTI, gastric ulcer, gastritis Current Diet Glucerna 1.2 at 50ml/hr Labs/Tests 09/11: Na 146 K 3.4 BUN 20 POC BG 107-64 Pertinent Medications Lantus Height 5 ft 5 in Weight 81.4 kg Holder Body Weight (kg) 56.81 BMI 29.8 Weight Status Appropriate Subjective/Other Information FU for TF tolerance. Pt BG appear to be slightly improved . Per chart, pt tolerating TF. Percent of energy/protein needs met: 94%/83% Burn Absent Trauma Absent GI Symptoms None Current % PO Negligible Minimum of two criteria No Fluid Accumulation Mild (non-severe) #2 Nutrition Diagnosis Increased nutrient needs ( specify in comment below) Diagnosis Progress(for reassessment Continues documentation) #1 Nutrition Diagnosis Inadequate oral intake Diagnosis Progress(for reassessment Continues documentation) Is patient on ventilator? No Is Patient Ambulatory and/or Out of Bed No REE-([facility]-confined to bed) [phone] Calculation Used for Recommendations [facility] Additional Notes Protein: 81-97 g 1-1.2 g/kg) Fluid needs 1ml/kcal Nutrition Intervention Change Diet Order: Continue TF Nutrition Support: Jevity 1.2 at 50ml/hr Flush with 100ml q4h Kcal 1,440 Protein (gm) 67 Fluid (mL) 968 Goal #1 Meet at least 80% of kcal and protein needs Anticipated Discharge Needs: TF Follow-Up By: 09/14/20 Additional Comments FU for TF tolerance, BG control
[2020-09-13] MEDS ORDERED: DEXTROSE 50% IN WATER (25GM) 50 ML VIAL IV ONE (13:00)
[2020-09-13] MEDS ORDERED: DEXTROSE 50% IN WATER (25GM) 50 ML SYRINGE IV ONE ×2 (13:00→13:05)
[2020-09-13 14:59] LABS: Glucose,CSF 53 mg/dL
--- NOTE | 2020-09-13 15:08 | Procedure Note ---
Date of procedure: 09/13/20 Pre-op diagnosis: Altered mental status Post-op diagnosis: same Procedure: Fluoroscopically guided lumbar puncture Findings: Please see radiology report. Anesthesia: local Surgeon: DAMEON SANTIAGO Estimated blood loss: minimal Pathology: list (Labs per primary team orders.) Specimen disposition: to lab Condition: stable Disposition: ICU
--- NOTE | 2020-09-13 15:48 | Fluoroscopy Report ---
Lumbar puncture INDICATION : Altered mental status PROCEDURE: The risks (including but not limited to bleeding, infection, and spinal headache) and keyonna efits were explained to the patient and informed consent was obtained. A time out procedure was perf ormed. The procedure site was prepped and draped in the usual sterile fashion and lidocaine was used for local anesthesia. Under fluoroscopic guidance, a 22-gauge spinal needle was advanced into the L2/3 interlaminar space. 4 separate collection tubes were used to obtain 1 mL each of CSF. Samples were sent to the lab per e ordering physician specifications for further evaluation. The patient tolerated the procedure well with no complications. IMPRESSION: 1. Successful lumbar puncture as outlined above. Fluoroscopic time: 2.2 minutes Number of fluoroscopic images: 1 Signer Name: Miguel Kate MD Signed: 09/13/2020 3:43 PM Workstation Name: [id number]
[2020-09-13 16:05] LABS: Appearance,CSF Clear; Red Blood Cell,CSF 2 /mm3 (0-0); White Blood Cell,CSF 2 /mm3 (1-10)
[2020-09-13 16:37] LABS: Basophils CSF 0 %
[2020-09-14] MEDS: INSULIN LISPRO 100 UNIT/ML VIAL 3 mL SUB-Q SCH ×4 (00:08→17:02)
[2020-09-14] MEDS: LEVOTHYROXINE 50 MCG TAB FEEDTUBE SCH (05:47)
[2020-09-14 07:57] LABS: Blood Urea Nitrogen 14 mg/dL (7-17); Calcium 7.2 mg/dL (8.4-10.2); Hemolysis Index 4
[2020-09-14 08:33] LABS: BUN/Creatinine Ratio 47
[2020-09-14] MEDS ORDERED: RAMIPRIL 10 MG PO SCH (10:00)
[2020-09-14] MEDS: levETIRAcetam 500 MG/5 ML ORAL LIQD FEEDTUBE SCH ×2 (10:03→23:12)
[2020-09-14] MEDS: CYANOCOBALAMIN (VIT B-12) 1000 MCG TAB PO SCH (10:04)
[2020-09-14] MEDS: LISINOPRIL 20 MG TAB PO SCH (10:04)
[2020-09-14] MEDS: FOLIC ACID 1 MG TAB PO SCH (10:04)
[2020-09-14] MEDS: HYDROCORTISONE 10 MG TAB FEEDTUBE SCH ×2 (10:04→23:12)
[2020-09-14] MEDS: INSULIN GLARGINE 100 UNITS/ML SUB-Q SCH (10:04)
[2020-09-14] MEDS: amLODIPine 5 MG TAB PO SCH (10:04)
[2020-09-14] MEDS: LANSOPRAZOLE 30 MG SOLUTAB FEEDTUBE SCH (10:04)
--- NOTE | 2020-09-14 11:04 | Progress Note ---
Assessment and Plan Paroxysmal atrial fibrillation currently in sinus rhythm rate control has been optimal without use of significant AV yoan blocking therapy, suggesting underlying conduction system disease. further use of long-term anticoagulation will not be recommended at this time, in the setting of the recent GI bleed and severe anemia. 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 Subjective Date of service: 09/14/20 Principal diagnosis: Acute encephalopathy Interval history: No interval cardiac changes. Stable sinus rhythm on telemetry. Objective Vital Signs Temp Pulse Resp BP BP Pulse Ox 09/14/20 05:35 98 F 73 16 164/57 100 09/14/20 04:32 98.6 F 20 164/57 09/13/20 22:00 20 94 09/13/20 21:44 98.3 F 76 16 160/57 94 09/13/20 21:06 98.3 F 16 160/57 09/13/20 18:41 76 154/70 98 09/13/20 17:26 97.9 F 73 18 146/53 99 09/13/20 16:47 98.2 F 77 18 152/63 100 - Physical Examination Narrative exam: Deferred due to isolation protocol. Cardiac: Positive: Reg Rate and Rhythm - Labs and Meds Comprehensive Metabolic Panel 09/14/20 Range/Units 07:01 Sodium 139 (137-145) mmol/L Potassium 3.7 (3.6-5.0) mmol/L Chloride 105.6 (98-107) mmol/L Carbon Dioxide 31 H (22-30) mmol/L BUN 14 (7-17) mg/dL Creatinine 0.3 L (0.6-1.2) mg/dL Glucose 139 H (65-100) mg/dL Calcium 7.2 L (8.4-10.2) mg/dL
--- NOTE | 2020-09-14 12:58 | Progress Note ---
Assessment and Plan Assessment and plan: Sepsis -Patient presented with tachycardia, hypotension, tachypnea, leukocytosis, febrile, acute kidney injury, urinary tract infection -Patient found to have urinary tract infection 11 by urinary analysis -08/18 blood cultures x2 no growth to date -08/18 urine culture no growth to date -Infectious disease consulted,appreciate recommendations -S/p antibiotic therapy Acute toxic metabolic encephalopathy -Possibly secondary to infection versus PAWAN -Patient has baseline dementia -Supportive care -Aspiration/fall precautions -LP pending Extensive skull base meningioma -Noted on CT head -Neurosurgery consulted, appreciate recommendations -No acute intervention indicated at this time per neurosurgery Gastric ulcer, acute -Noted on endoscopy -No active bleeding -Supportive care -PPI Elevated D-dimer, acute -D-dimer noted to be 2409.7 and thus empirically started on therapeutic dose anticoagulation. 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, slightly immunocompromised host Hypertension, chronic -Patient presented with hypotension -Resume home antihypertensive regimen and adjust as needed when appropriate -Blood pressure monitoring per protocol DVT prophylaxis -SCDs to bilateral lower extremities while in bed -Chemical prophylaxis contraindicated secondary to acute GI bleed Urinary tract infection, resolved -08/18/2020 urinalysis shows trace leukocyte Estrace and pyuria -08/18 urine culture negative -S/p antibiotic therapy Acute kidney injury, resolved -S/p MIVF -Presented with creatinine/BUN of 3.5/55 -Patient's creatinine has trended down to 0.3 and BUN 17 -Avoid nephrotoxic medications -Renally dose medications -Strict urine output -Secondary to vasomotor nephropathy Leukocytosis, resolved -Admit WBC 20.3 -S/p antibiotic therapy -Trend CBC -09/11 WBC 6.6 -Patient is on chronic steroid therapy for Mehran's disease Hypernatremia, resolved -Presented with a sodium of 146 which trended down but then trended back up to 150 and is now 146 -Trend BMP -Free water flush -09/12 Na 143 Hyperchloremia, resolved -Patient's chloride trended up to 119.3 -09/12 chloride 110 -Trend BMP -Free water flush -09/14 Cl 105.6 Acute hypoxic respiratory failure, resolved -Supplemental oxygen as needed -Pulmonary hygiene -SPO2 monitoring GI bleed/hematochezia, resolved -Endoscopic evaluation revealed gastric ulcer. No active bleeding -Supportive care -PPI -S/p PEG tube on tube feedings History Interval history: The patient is an 80-year-old woman with advanced dementia who lives in a [facility] home, Brule's disease, hypertension, vitamin D deficiency, seizure disorder, and hyperlipidemia who presents the emergency department for altered mental status. On presentation to the emergency room, her white count was markedly elevated at 20,000, low grade fever, PAWAN with BUN 55 and creatinine of 3.5 and elevated Mell as well as meningioma on CT head. Neurosurgery, cardiology, nephrology, heme-onc and infectious disease were consulted. Her viral panel and culture are pending in her CSF analysis. CM is to speak with family regarding discharge as they originally wanted the patient to be discharged home. No acute events reported overnight. 08/24/2020. Patient still mildly confused. However, I suspect patient has underlying Alzheimer's dementia and this is her baseline. I discussed plan of care and altered mentation with sister at [phone]. Patient will need DME of hospital bed and oxygen for discharge home. Await physical therapy recommendations. 08/25/2020. Patient still lethargic and confused. Patient receiving hydrocortisone 50 mg IV twice daily for adrenal insufficiency. Check B12, folate and ammonia levels. Neurology consultation pending. Continue suppleme ntal oxygen to maintain sats greater than 92%. 08/26/2020. Encephalopathy likely secondary to toxic metabolic causes in the setting of leukocytosis, improving uremia, renal insufficiency, covid-19, un derlying uti. Check CT head without contrast and EEG per neurology recommendations. However may need csf evaluation if brain imaging and eeg are unremarkable and pt continues to remain encephalopathic. Follow-up cortisol levels and T3-T4. 08/27/2020. Patient remains lethargic and confused. Encephalopathy is persistent and likely secondary to toxic metabolic causes from sepsis, renal insufficie ncy/uremia, COVID-[address] scan of the head found to be negative. Await EEG. Consider CSF evaluation if EEG unremarkable. Consult GI for further evaluation of hematochezia/GI bleed. Continue Protonix 40 mg IV twice daily. Transfuse for hemoglobin less than 7. Continue to monitor serial CBC. Lovenox discontinued which was empirically started for elevated D-dimer. Patient does have a history of chronic steroids for Brule's disease. Decrease IV hydrocortisone. Follow-up cortisol levels and T3-T4. I updated the sister and family at [phone]. 08/28/2020. Follow-up EEG per neurology. GI reports if signs of hemodynamic changes, we will proceed with stat bleeding scan. Hemoglobin has dropped to 6.8. Type and cross and transfuse 2 units. Continue to hold anticoagulation. Continue Protonix 40 mg IV twice daily. Nursing reports inability to place NG tube. Place PICC line and start TPN. Dietitian consulted. ? NG tube placement under fluoroscopy. Patient may need PEG tube placement. 08/29/2020. Patient is s/p 3 units PRBCs. Hemoglobin has stabilized to 11.5. Continue to trend and follow serial H/H. Patient remains hemodynamically stable. If patient has a change, we will proceed with stat bleeding scan. GI following. Continue Protonix 40 mg IV twice daily. Continue to hold anticoagulation. Nursing reports inability to place NG tube. PICC line placed to initiate TPN. Dietitian consulted. ? NG tube placement under fluoroscopy. Patient may need PEG tube placement. 08/30/2020. Hemoglobin remained stable. Patient is on TPN and will not be discharged on TPN. NG tube could not be placed as per RN.. Awaiting EEG to rule out any seizures. If no etiology found, patient will benefit from a PEG placement as she has advanced dementia. Continue to hold anticoagulation due to recent GI bleed. GI to reevaluate for PEG placement. MRI brain shows extensive skull base meningioma with soft tissue extension into the sella, right suprase llar space. 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 Not clear if this is baseline. Need to retrieve her records from previous hospitalization. Neurosurgery consulted for evaluation. 09/01/2020. She is remains confused. Neurology evaluation appreciated. No intervention for brain mass. She is on hydrocortisone for hypopituitary function. Will adjust based on cortisol levels. She will need to have PEG placement for feeds ultimately as she will not be on TPN for a long time. Will reconsult GI for NG tube placement. 09/02. Plan for PEG placement today. She is awake and alert to person only. Vitals stable. 09/03. Had EGD which showed gastritis. Patient will need to have a PEG placement by other means-IR or surgery as per GI. Now on PPI twice daily. Biopsy from gastric ulcer sent. She remains on TPN. Plan to discuss PEG placement IR or surgery. Plan for LP as well. 09/04. Surgery has been consulted for PEG placement. COVID-19 test sent. She remains on TPN. LP still pending 09/05. Patient is awake today but confused. COVID-19 test remains positive. Patients PEG placement may be held for now as per surgery continue Covid infection resolved. She remains on TPN. LP still pending. 09/06. Patient remains confused. COVID-19 test remains positive. Patients PEG placement may be held for now as per surgery continue Covid infection resolved. She remains on TPN. LP still pending. 09/07. Surgery completed laparoscopic-assisted PEG tube placement. Advance tube feeding per dietitian/rebar fabricator recommendations. Patient has had optimal rate control without use of significant AV yoan blocking therapy which suggests underlying conduction system disease per cardiology. Cardiology does not recommend further use of long-term anticoagulation in the setting of recent GI bleed, anemia, AMS and age. I will call the sister to update her regarding care but no answer. Message left. 09/08. Patient tolerating PEG tube feedings. Awaiting LP. Patient remains confused. Continue hydrocortisone for hypopituitary function. Will discuss with neurology further plans . 09/09. Plans for LP to assess confusion. Continue hydrocortisone for hypopituitary function. Will discuss with neurology further plans . 09/10. Continue hydrocortisone 10 mg daily. Keppra 750 mg daily. Patient tolerating tube feedings. Discussed with neurology further plans regarding encephalopathy. 09/11. Patient much more verbal this morning. Patient appears to be potentially back to baseline. We will discuss with family. Patient remains in sinus rhythm. No long-term anticoagulation given recent GI bleed, gastric ulcer, anemia and advanced dementia. Continue to monitor H&H and transfuse for hemoglobin less than 7. Continue PPI. 09/12: Continuously removes her supplemental oxygenation and places it on her forehead. Her SPO2 is in the high 90s on room air therefore RN was instructed to decrease oxygenation off. This morning RN was instructed to remove CVL as it is somewhat pulled back and to obtain a peripheral IV. Patient will have her lumbar puncture done today. 09/13: Patient is scheduled for lumbar puncture today. Patient remains on room air no acute events reported overnight. Her CVL has been removed. Hospitalist Physical - Constitutional Vitals: Temp Pulse Resp BP Pulse Ox 98 F 73 16 164/57 100 09/14/20 05:35 09/14/20 05:35 09/14/20 05:35 09/14/20 05:35 09/14/20 05:35 General appearance: Present: no acute distress, well-nourished, other (Lethargic and confused) - EENT Eyes: Present: PERRL, EOM intact ENT: dentition normal - Neck Neck: Present: normal ROM - Respiratory Respiratory effort: normal - Cardiovascular Rhythm: regular - Extremities Extremities: no ischemia, pulses intact, pulses symmetrical, No edema, normal temperature, normal color, Full ROM Peripheral Pulses: within normal limits - Abdominal General gastrointestinal: soft, non-tender, non-distended, normal bowel sounds - Integumentary Integumentary: Present: warm, dry - Psychiatric Psychiatric: appropriate mood/affect - Neurologic Neurologic: CNII-XII intact, moves all extremities - Allied Health Allied health notes reviewed: nursing HEART Score - HEART Score Troponin: Troponin T 0.075 ng/mL (0.00-0.029) H 08/18/20 18:25 Troponin: 1-3x normal limit - Critical Actions Critical Actions: 4-6 pts:12-16.6% risk of adverse cardiac event. Should be admitted Results - Labs CBC & Chem 7: 09/11/20 05:44 09/14/20 07:01 Labs: Laboratory Last Values WBC 6.6 K/mm3 (4.5-11.0) 09/11/20 05:44 RBC 2.95 M/mm3 (3.65-5.03) L 09/11/20 05:44 Hgb 8.6 gm/dl (10.1-14.3) L 09/11/20 05:44 Hct 26.5 % (30.3-42.9) L 09/11/20 05:44 MCV 90 fl (79-97) 09/11/20 05:44 MCH 29 pg (28-32) 09/11/20 05:44 MCHC 32 % (30-34) 09/11/20 05:44 RDW 16.8 % (13.2-15.2) H 09/11/20 05:44 Plt Count 193 K/mm3 (140-440) 09/11/20 05:44 Lymph % (Auto) 14.6 % (13.4-35.0) 09/11/20 05:44 [place] % (Auto) 6.1 % (0.0-7.3) 09/11/20 05:44 Eos % (Auto) 0.8 % (0.0-4.3) 09/11/20 05:44 Baso % (Auto) 0.2 % (0.0-1.8) 09/11/20 05:44 Lymph # (Auto) 1.0 K/mm3 (1.2-5.4) L 09/11/20 05:44 [place] # (Auto) 0.4 K/mm3 (0.0-0.8) 09/11/20 05:44 Eos # (Auto) 0.1 K/mm3 (0.0-0.4) 09/11/20 05:44 Baso # (Auto) 0.0 K/mm3 (0.0-0.1) 09/11/20 05:44 Add Manual Diff Complete 08/31/20 06:20 Total Counted 100 08/31/20 06:20 Seg Neutrophils % 78.3 % (40.0-70.0) H 09/11/20 05:44 Seg Neuts % (Manual) 87.0 % (40.0-70.0) H 08/31/20 06:20 Band Neutrophils % 1.0 % 08/31/20 06:20 Lymphocytes % (Manual) 5.0 % (13.4-35.0) L 08/31/20 06:20 Reactive Lymphs % (Man) 1.0 % 08/28/20 10:07 Monocytes % (Manual) 5.0 % (0.0-7.3) 08/31/20 06:20 Metamyelocytes % 2.0 % 08/31/20 06:20 Nucleated RBC % Not Reportable 08/31/20 06:20 Seg Neutrophils # 5.2 K/mm3 (1.8-7.7) 09/11/20 05:44 Seg Neutrophils # Man 15.1 K/mm3 (1.8-7.7) H 08/31/20 06:20 Band Neutrophils # 0.2 K/mm3 08/31/20 06:20 Lymphocytes # (Manual) 0.9 K/mm3 (1.2-5.4) L 08/31/20 06:20 Abs React Lymphs (Man) 0.0 K/mm3 08/31/20 06:20 Monocytes # (Manual) 0.9 K/mm3 (0.0-0.8) H 08/31/20 06:20 Eosinophils # (Manual) 0.0 K/mm3 (0.0-0.4) 08/31/20 06:20 Basophils # (Manual) 0.0 K/mm3 (0.0-0.1) 08/31/20 06:20 Metamyelocytes # 0.3 K/mm3 08/31/20 06:20 Myelocytes # 0.0 K/mm3 08/31/20 06:20 Promyelocytes # 0.0 K/mm3 08/31/20 06:20 Blast Cells # 0.0 K/mm3 08/31/20 06:20 WBC Morphology Not Reportable 08/31/20 06:20 Hypersegmented Neuts Not Reportable 08/31/20 06:20 Hyposegmented Neuts Not Reportable 08/31/20 06:20 Hypogranular Neuts Not Reportable 08/31/20 06:20 Smudge Cells Not Reportable 08/31/20 06:20 Toxic Granulation Not Reportable 08/31/20 06:20 Toxic Vacuolation Not Reportable 08/31/20 06:20 Dohle Bodies Not Reportable 08/31/20 06:20 Pelger-Huet Anomaly Not Reportable 08/31/20 06:20 Marie Rods Not Reportable 08/31/20 06:20 Platelet Estimate Consistent w auto 08/31/20 06:20 Clumped Platelets Not Reportable 08/31/20 06:20 Plt Clumps, EDTA Not Reportable 08/31/20 06:20 Large Platelets Not Reportable 08/31/20 06:20 Giant Platelets Not Reportable 08/31/20 06:20 Platelet Satelliting Not Reportable 08/31/20 06:20 Plt Morphology Comment Not Reportable 08/31/20 06:20 RBC Morphology Not Reportable 08/31/20 06:20 Dimorphic RBCs Not Reportable 08/31/20 06:20 Polychromasia Not Reportable 08/31/20 06:20 Hypochromasia Not Reportable 08/31/20 06:20 Poikilocytosis Not Reportable 08/31/20 06:20 Anisocytosis 1+ 08/31/20 06:20 Microcytosis Not Reportable 08/31/20 06:20 Macrocytosis Not Reportable 08/31/20 06:20 Spherocytes Not Reportable 08/31/20 06:20 Pappenheimer Bodies Not Reportable 08/31/20 06:20 Sickle Cells Not Reportable 08/31/20 06:20 Target Cells Not Reportable 08/31/20 06:20 Tear Drop Cells Not Reportable 08/31/20 06:20 Ovalocytes Not Reportable 08/31/20 06:20 Helmet Cells Not Reportable 08/31/20 06:20 [place] Bodies Not Reportable 08/31/20 06:20 [place] Rings Not Reportable 08/31/20 06:20 Darren Cells Not Reportable 08/31/20 06:20 Bite Cells Not Reportable 08/31/20 06:20 Crenated Cell Not Reportable 08/31/20 06:20 Elliptocytes Not Reportable 08/31/20 06:20 Acanthocytes (Spur) Not Reportable 08/31/20 06:20 Rouleaux Not Reportable 08/31/20 06:20 Hemoglobin C Crystals Not Reportable 08/31/20 06:20 Schistocytes Not Reportable 08/31/20 06:20 Malaria parasites Not Reportable 08/31/20 06:20 [place] Bodies Not Reportable 08/31/20 06:20 Hem Pathologist Commnt No 08/31/20 06:20 PT 15.7 Sec. (12.2-14.9) H 09/09/20 09:44 INR 1.25 (0.87-1.13) H 09/09/20 09:44 APTT 45.2 Sec. (24.2-36.6) H 09/09/20 09:44 D-Dimer 2409.74 ng/mlDDU (0-234) H 08/18/20 Unknown Sodium 139 mmol/L (137-145) 09/14/20 07:01 Potassium 3.7 mmol/L (3.6-5.0) 09/14/20 07:01 Chloride 105.6 mmol/L (98-107) 09/14/20 07:01 Carbon Dioxide 31 mmol/L (22-30) H 09/14/20 07:01 Anion Gap 6 mmol/L 09/14/20 07:01 BUN 14 mg/dL (7-17) 09/14/20 07:01 Creatinine 0.3 mg/dL (0.6-1.2) L 09/14/20 07:01 Estimated GFR > 60 ml/min 09/14/20 07:01 BUN/Creatinine Ratio 47 % 09/14/20 07:01 Glucose 139 mg/dL (65-100) H 09/14/20 07:01 POC Glucose 107 mg/dL (70-105) H 09/13/20 23:39 Lactic Acid 1.00 mmol/L (0.7-2.0) 08/18/20 18:25 Calcium 7.2 mg/dL (8.4-10.2) L 09/14/20 07:01 Phosphorus 5.50 mg/dL (2.5-4.5) H 09/08/20 04:52 Magnesium 2.10 mg/dL (1.7-2.3) 09/08/20 04:52 Ferritin 1950.0 ng/mL (10.0-200.0) H 08/18/20 15:35 Total Bilirubin 0.50 mg/dL (0.1-1.2) 09/04/20 05:57 AST 11 units/L (5-40) 09/04/20 05:57 ALT 8 units/L (7-56) 09/04/20 05:57 Alkaline Phosphatase 59 units/L (35-129) 09/04/20 05:57 Ammonia 32.0 umol/L (25-60) 08/25/20 09:06 Lactate Dehydrogenase 228 units/L (91-180) H 08/18/20 15:35 Total Creatine Kinase 164 units/L (30-135) H 08/22/20 19:44 Troponin T 0.075 ng/mL (0.00-0.029) H 08/18/20 18:25 C-Reactive Protein 35.60 mg/dL (0.00-1.30) H 08/18/20 15:35 Total Protein 4.2 g/dL (6.3-8.2) L 09/04/20 05:57 Albumin 2.5 g/dL (3.9-5) L 09/04/20 05:57 Albumin/Globulin Ratio 1.5 % 09/04/20 05:57 Triglycerides 70 mg/dL (2-149) 08/31/20 06:20 Cholesterol 79 mg/dL (50-199) 08/18/20 18:25 LDL Cholesterol Direct 42 mg/dL (50-130) L 08/18/20 18:25 HDL Cholesterol 23 mg/dL (40-59) L 08/18/20 18:25 Cholesterol/HDL Ratio 3.43 % 08/18/20 18:25 Vitamin B12 721.0 pg/mL (211-911) 08/25/20 09:06 Folate 8.34 ng/mL (7.3-26.0) 08/25/20 09:06 Procalcitonin 4.00 ng/mL (<0.15) 08/18/20 15:35 TSH 0.056 mlU/mL (0.270-4.200) L 08/24/20 17:02 Free T4 1.59 ng/dL (0.76-1.46) H 08/26/20 10:22 Free T3 Index 1.2 pg/mL (2.3-4.2) L 08/26/20 10:22 Total Cortisol 37.6 mcg/dL () 09/02/20 05:30 Urine Color Yellow (Yellow) 09/08/20 06:14 Urine Turbidity Turbid (Clear) 09/08/20 06:14 Urine pH 5.0 (5.0-7.0) 09/08/20 06:14 Ur Specific [place] 1.009 (1.003-1.030) 09/08/20 06:14 Urine Protein 100 mg/dl mg/dL (Negative) 09/08/20 06:14 Urine Glucose (UA) Neg mg/dL (Negative) 09/08/20 06:14 Urine Ketones Neg mg/dL (Negative) 09/08/20 06:14 Urine Blood Lg (Negative) 09/08/20 06:14 Urine Nitrite Neg (Negative) 09/08/20 06:14 Urine Bilirubin Neg (Negative) 09/08/20 06:14 Urine Urobilinogen < 2.0 mg/dL (<2.0) 09/08/20 06:14 Ur Leukocyte Esterase Mod (Negative) 09/08/20 06:14 Urine WBC (Auto) > 182.0 /HPF (0.0-6.0) H 09/08/20 06:14 Urine RBC (Auto) > 182.0 /HPF (0.0-6.0) 09/08/20 06:14 U Epithel Cells (Auto) 1.0 /HPF (0-13.0) 08/18/20 Unknown Urine Bacteria (Auto) 4+ /HPF (Negative) 09/08/20 06:14 Urine WBC Clumps 3+ /HPF 09/08/20 06:14 Urine Mucus 1+ /HPF 09/08/20 06:14 Ur Yeast w Hyphae 2+ /HPF 09/08/20 06:14 Urine Yeast (Budding) 2+ /HPF 09/08/20 06:14 CSF Appearance Clear 09/13/20 Unknown CSF Color Colorless 09/13/20 Unknown CSF WBC 2 /mm3 (1-10) 09/13/20 Unknown CSF RBC 2 /mm3 (0-0) 09/13/20 Unknown CSF Seg Neutrophils 0 % (0-6) 09/13/20 Unknown CSF Lymphocytes % 1 % (40-80) 09/13/20 Unknown CSF Reactive Lymphs 0 % 09/13/20 Unknown CSF Monocytes % 0 % (15-45) 09/13/20 Unknown CSF Eosinophils % 0 % 09/13/20 Unknown CSF Basophils 0 % 09/13/20 Unknown CSF Pathologist Review C 09/13/20 Unknown CSF Glucose 53 mg/dL 09/13/20 Unknown CSF Total Protein 49 mg/dL 09/13/20 Unknown Random Vancomycin 9.8 ug/mL (0-40.0) 08/19/20 19:02 Coronavirus (PCR) Positive (Negative) A 09/04/20 10:27 Blood Type O POSITIVE 08/27/20 20:44 Antibody Screen Negative 08/27/20 20:44 Crossmatch See Detail 08/27/20 20:44 Microbiology: Microbiology 09/13/20 Unknown Cerebral Spinal Fluid CSF Culture - Preliminary [place]/IV: Voiding Method Indwelling Catheter IV Catheter Type [Right INT / Saline Lock Forearm] IV Catheter Type [Left Forearm INT / Saline Lock ] IV Catheter Type [Left Hand] INT / Saline Lock IV Catheter Type [Left Triple Lumen Cath Internal Jugular] IV Catheter Type [Left] CVL Active Medications - Current Medications Current Medications: Generic Name Dose Route Start Last Admin Trade Name Freq PRN Reason Stop Dose Admin Acetaminophen 650 mg 09/07/20 19:17 09/07/20 22:50 Acetaminophen 325 Mg/10.15 Ml Oral Liqd Unit Dose FEEDTUBE 650 mg Q6H PRN Administration Pain, Mild (1-3) Amlodipine Besylate 5 mg 09/12/20 10:00 09/14/20 10:04 Amlodipine 5 Mg Tab PO 5 mg DAILY BARBARA Administration Lipase/Protease/Amylase 1 each 09/06/20 19:27 Lipase 10,500/Protease 25,000/Amylase 43,750 (Units) Dr Fernandez FEEDTUBE PRN PRN For Clogged Feeding Tube Atorvastatin Calcium 20 mg 09/12/20 22:00 09/13/20 23:07 Atorvastatin 20 Mg Tab PO 20 mg QHS BARBARA Administration Atropine Sulfate 1 mg 08/23/20 16:56 Atropine 1 Mg/Ml Vial IV PRN PRN Bradycardia Clonidine HCl 0.2 mg 08/31/20 22:00 09/07/20 22:48 Clonidine Tts 0.2 Mg/24 Hr Patch TD 0.2 mg We BARBARA Administration Cyanocobalamin 1,000 mcg 09/12/20 10:00 09/14/20 10:04 Cyanocobalamin (Vit B-12) 1000 Mcg Tab PO 1,000 mcg DAILY BARBARA Administration Folic Acid 1 mg 09/12/20 10:00 09/14/20 10:04 Folic Acid 1 Mg Tab PO 1 mg DAILY BARBARA Administration Hydralazine HCl 5 mg 08/31/20 21:22 09/06/20 23:43 Hydralazine 20 Mg/1 Ml Inj IV 5 mg Q4H PRN Administration Blood Pressure Hydrocortisone Acetate 10 mg 09/07/20 22:00 09/14/20 10:04 Hydrocortisone 10 Mg Tab FEEDTUBE 10 mg Q12HR BARBARA Administration Insulin Glargine 5 units 09/03/20 22:00 09/14/20 10:04 Insulin Glargine 100 Units/Ml SUB-Q 5 units BID BARBARA Administration Insulin Human Lispro 0 unit 09/07/20 12:00 09/14/20 06:00 Insulin Lispro 100 Unit/Ml Vial 3 Ml SUB-Q Not Given Q6H [facility] Protocol Lansoprazole 30 mg 09/08/20 10:00 09/14/20 10:04 Lansoprazole 30 Mg Solutab FEEDTUBE 30 mg QDAY BARBARA Administration Levetiracetam 750 mg 09/07/20 22:00 09/14/20 10:03 Levetiracetam 500 Mg/5 Ml Oral Liqd FEEDTUBE 750 mg BID BARBARA Administration Levothyroxine Sodium 50 mcg 09/08/20 06:00 09/14/20 05:47 Levothyroxine 50 Mcg Tab FEEDTUBE 50 mcg DAILY@0600 BARBARA Administration Lisinopril 20 mg 09/14/20 10:00 09/14/20 10:04 Lisinopril 20 Mg Tab PO 20 mg QDAY BARBARA Administration Ondansetron HCl 4 mg 09/07/20 19:17 Ondansetron 4 Mg/2 Ml Inj IV Q8H PRN Nausea Simple Syrup 15 ml 09/06/20 19:27 09/11/20 23:38 Simple Syrup 15 Ml FEEDTUBE 15 ml PRN PRN Administration Hypoglycemia Simple Syrup 30 ml 09/06/20 19:27 Simple Syrup 15 Ml FEEDTUBE PRN PRN Hypoglycemia Sodium Bicarbonate 325 mg 09/06/20 19:27 Sodium Bicarbonate 325 Mg Tab FEEDTUBE PRN PRN For Clogged Feeding Tube Nutrition/Malnutrition Assess - Dietary Evaluation Nutrition/Malnutrition Findings: Nutrition Notes Start: 08/23/20 10:57 Freq: Status: Active Protocol: Document 09/14/20 10:41 EN (Rec: 09/14/20 10:47 EN [id number]) Co-Sign 09/14/20 10:41 MK Nutrition Notes Initial or Follow up Reassessment Current Diagnosis Acute Kidney Injury,Diabetes, Sepsis Other Pertinent Diagnosis Encephalopathy, COVID-19 (+), GIB, UTI, gastric ulcer, gastritis, AMS Current Diet Jevity 1.2 at 50ml/hr Labs/Tests Reviewed Pertinent Medications Lantus Folic Acid Vitamin B 12 Height 5 ft 5 in Weight 81.4 kg [place] Body Weight (kg) 56.81 BMI 29.8 Weight Status Appropriate Subjective/Other Information F/u for TF tolerance and BG control. BG is slightly improved and TF infusing at goal rate. RN reports pt tolerating TF well with no concerns. Percent of energy/protein needs met: 94%/83% Burn Absent Trauma Absent GI Symptoms None Current % PO Negligible Minimum of two criteria No Fluid Accumulation Mild (non-severe) #2 Nutrition Diagnosis Increased nutrient needs ( specify in comment below) Diagnosis Progress(for reassessment Continues documentation) #1 Nutrition Diagnosis Inadequate oral intake Diagnosis Progress(for reassessment Continues documentation) Is patient on ventilator? No Is Patient Ambulatory and/or Out of Bed No REE-([place]-St. Jeor-confined to bed) [phone] Calculation Used for Recommendations [place]-St Jeor Additional Notes Protein: 81-97 g 1-1.2 g/kg) Fluid needs 1ml/kcal Nutrition Intervention Change Diet Order: Continue TF Nutrition Support: Jevity 1.2 at 50ml/hr Flush with 100ml q4h Kcal 1,440 Protein (gm) 67 Fluid (mL) 968 Goal #1 Meet at least 80% of kcal and protein needs Anticipated Discharge Needs: TF Follow-Up By: 09/20/20 Additional Comments F/u for TF tolerance and BG labs
[2020-09-14] MEDS: cloNIDine TTS 0.2 MG/24 HR PATCH TD SCH (23:12)
[2020-09-15] MEDS: INSULIN GLARGINE 100 UNITS/ML SUB-Q SCH ×3 (00:44→23:59)
[2020-09-15] MEDS: INSULIN LISPRO 100 UNIT/ML VIAL 3 mL SUB-Q SCH ×4 (00:45→17:26)
[2020-09-15] MEDS: LEVOTHYROXINE 50 MCG TAB FEEDTUBE SCH (06:36)
[2020-09-15] MEDS: LANSOPRAZOLE 30 MG SOLUTAB FEEDTUBE SCH (10:10)
[2020-09-15] MEDS: HYDROCORTISONE 10 MG TAB FEEDTUBE SCH ×2 (10:10→21:40)
[2020-09-15] MEDS: LISINOPRIL 20 MG TAB PO SCH (10:10)
[2020-09-15] MEDS: CYANOCOBALAMIN (VIT B-12) 1000 MCG TAB PO SCH (10:10)
[2020-09-15] MEDS: levETIRAcetam 500 MG/5 ML ORAL LIQD FEEDTUBE SCH ×2 (10:10→21:40)
[2020-09-15] MEDS: amLODIPine 5 MG TAB PO SCH (10:10)
[2020-09-15] MEDS: FOLIC ACID 1 MG TAB PO SCH (10:10)
--- NOTE | 2020-09-15 10:13 | Progress Note ---
Assessment and Plan Paroxysmal atrial fibrillation currently in sinus rhythm rate control has been optimal without use of significant AV yoan blocking therapy, suggesting underlying conduction system disease. further use of long-term anticoagulation will not be recommended at this time, in the setting of the recent GI bleed and severe anemia. 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 Subjective Date of service: 09/15/20 Principal diagnosis: Acute encephalopathy Interval history: No interval cardiac changes. Stable sinus rhythm on telemetry. Objective Vital Signs Temp Pulse Resp BP Pulse Ox 09/15/20 04:04 97.9 F 17 09/15/20 04:02 97.9 F 73 16 149/71 96 09/14/20 22:11 97.3 F L 79 16 160/61 98 09/14/20 16:06 99.1 F 85 24 157/84 99 09/14/20 11:09 98.6 F 76 22 134/51 100 - Physical Examination Narrative exam: Deferred due to isolation protocol. Cardiac: Positive: Reg Rate and Rhythm
--- NOTE | 2020-09-15 15:09 | Progress Note ---
Assessment and Plan Assessment and plan: Sepsis -Patient presented with tachycardia, hypotension, tachypnea, leukocytosis, febrile, acute kidney injury, urinary tract infection -Patient found to have urinary tract infection 11 by urinary analysis -08/18 blood cultures x2 no growth to date -08/18 urine culture no growth to date -Infectious disease consulted,appreciate recommendations -S/p antibiotic therapy Acute toxic metabolic encephalopathy -Possibly secondary to infection versus PAWAN -Patient has baseline dementia -Supportive care -Aspiration/fall precautions -LP pending Extensive skull base meningioma -Noted on CT head -Neurosurgery consulted, appreciate recommendations -No acute intervention indicated at this time per neurosurgery Gastric ulcer, acute -Noted on endoscopy -No active bleeding -Supportive care -PPI Urinary retention -Montalvo catheter had to be placed during hospital stay for urinary retention -09/15 attempted to remove Montalvo catheter however patient still exhibited retention the Montalvo was replaced -Patient will be discharged with Montalvo catheter in place -We will need to follow-up with urology outpatient within 1 to 2 weeks of discharge Elevated D-dimer, acute -D-dimer noted to be 2409.7 and thus empirically started on therapeutic dose anticoagulation. 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 Urinary tract infection, resolved -08/18/2020 urinalysis shows trace leukocyte Estrace and pyuria -08/18 urine culture negative -S/p antibiotic therapy Acute kidney injury, resolved -S/p MIVF -Presented with creatinine/BUN of 3.5/55 -Patient's creatinine has trended down to 0.3 and BUN 17 -Avoid nephrotoxic medications -Renally dose medications -Strict urine output -Secondary to vasomotor nephropathy Leukocytosis, resolved -Admit WBC 20.3 -S/p antibiotic therapy -Trend CBC -09/11 WBC 6.6 -Patient is on chronic steroid therapy for Mehran's disease Hypernatremia, resolved -Presented with a sodium of 146 which trended down but then trended back up to 150 and is now 146 -Trend BMP -Free water flush -09/12 Na 143 Hyperchloremia, resolved -Patient's chloride trended up to 119.3 -09/12 chloride 110 -Trend BMP -Free water flush -09/14 Cl 105.6 Acute hypoxic respiratory failure, resolved -Supplemental oxygen as needed -Pulmonary hygiene -SPO2 monitoring GI bleed/hematochezia, resolved -Endoscopic evaluation revealed gastric ulcer. No active bleeding -Supportive care -PPI -S/p PEG tube on tube feedings History Interval history: The patient is an 80-year-old woman with advanced dementia who lives in a long term, Tehama's disease, hypertension, vitamin D deficiency, seizure disorder, and hyperlipidemia who presents the emergency department for altered mental status. On presentation to the emergency room, her white count was markedly elevated at 20,000, low grade fever, PAWAN with BUN 55 and creatinine of 3.5 and elevated Mell as well as meningioma on CT head. Neurosurgery, cardiology, nephrology, heme-onc and infectious disease were consulted. 08/24/2020. Patient still mildly confused. However, I suspect patient has underlying Alzheimer's dementia and this is her baseline. I discussed plan of care and altered mentation with sister at [phone]. Patient will need DME of hospital bed and oxygen for discharge home. Await physical therapy recommendations. 08/25/2020. Patient still lethargic and confused. Patient receiving hydr ocortisone 50 mg IV twice daily for adrenal insufficiency. Check B12, folate and ammonia levels. Neurology consultation pending. Continue supplemental oxygen to maintain sats greater than 92%. 08/26/2020. Encephalopathy likely secondary to toxic metabolic causes in the setting of leukocytosis, improving uremia, renal insufficiency, covid-19, underlying uti. Check CT head without contrast and EEG per neurology recommendations. However may need csf evaluation if brain imaging and eeg are unremarkable and pt continues to remain encephalopathic. Follow-up cortisol levels and T3-T4. 08/27/2020. Patient remains lethargic and confused. Encephalopathy is persistent and likely secondary to toxic metabolic causes from sepsis, renal insufficiency/uremia, COVID-[address] scan of the head found to be negative. Await EEG. Consider CSF evaluation if EEG unremarkable. Consult GI for further evaluation of hematochezia/GI bleed. Continue Protonix 40 mg IV twice daily. Transfuse for hemoglobin less than 7. Continue to monitor serial CBC. Lovenox discontinued which was empirically started for elevated D-dimer. Patient does have a history of chronic steroids for Tehama's disease. Decrease IV hydrocortisone. Follow-up cortisol levels and T3-T4. I updated the sister and family at [phone]. 08/28/2020. Follow-up EEG per neurology. GI reports if signs of hemodynamic changes, we will proceed with stat bleeding scan. Hemoglobin has dropped to 6.8. Type and cross and transfuse 2 units. Continue to hold anticoagulation. Continue Protonix 40 mg IV twice daily. Nursing reports inability to place NG tube. Place PICC line and start TPN. Dietitian consulted. ? NG tube placement under fluoroscopy. Patient may need PEG tube placement. 08/29/2020. Patient is s/p 3 units PRBCs. Hemoglobin has stabilized to 11.5. Continue to trend and follow serial H/H. Patient remains hemodynamically stable. If patient has a change, we will proceed with stat bleeding scan. GI following. Continue Protonix 40 mg IV twice daily. Continue to hold anticoagulation. Nursing reports inability to place NG tube. PICC line placed to initiate TPN. Dietitian consulted. ? NG tube placement under fluoroscopy. Patient may need PEG tube placement. 08/30/2020. Hemoglobin remained stable. Patient is on TPN and will not be discharged on TPN. NG tube could not be placed as per RN.. Awaiting EEG to rule out any seizures. If no etiology found, patient will benefit from a PEG placement as she has advanced dementia. Continue to hold anticoagulation due to recent GI bleed. GI to reevaluate for PEG placement. 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 Not clear if this is baseline. Need to retrieve her records from previous hospitalization. Neurosurgery consulted for evaluation. 09/01/2020. She is remains confused. Neurology evaluation appreciated. No intervention for brain mass. She is on hydrocortisone for hypopituitary function. Will adjust based on cortisol levels. She will need to have PEG placement for feeds ultimately as she will not be on TPN for a long time. Will reconsult GI for NG tube placement. 09/02. Plan for PEG placement today. She is awake and alert to person only. Vitals stable. 09/03. Had EGD which showed gastritis. Patient will need to have a PEG placement by other means-IR or surgery as per GI. Now on PPI twice daily. Biopsy from gastric ulcer sent. She remains on TPN. Plan to discuss PEG placement IR or surgery. Plan for LP as well. 09/04. Surgery has been consulted for PEG placement. COVID-19 test sent. She remains on TPN. LP still pending 09/05. Patient is awake today but confused. COVID-19 test remains positive. Patients PEG placement may be held for now as per surgery continue Covid infection resolved. She remains on TPN. LP still pending. 09/06. Patient remains confused. COVID-19 test remains positive. Patients PEG placement may be held for now as per surgery continue Covid infection resolved. She remains on TPN. LP still pending. 09/07. Surgery completed laparoscopic-assisted PEG tube placement. Advance tube feeding per dietitian/spring repairer helper hand recommendations. Patient has had optimal rate control without use of significant AV yoan blocking therapy which suggests underlying conduction system disease per cardiology. Cardiology does not recommend further use of long-term anticoagulation in the setting of recent GI bleed, anemia, AMS and age. I will call the sister to update her regarding care but no answer. Message left. 09/08. Patient tolerating PEG tube feedings. Awaiting LP. Patient remains confused. Continue hydrocortisone for hypopituitary function. Will discuss with neurology further plans . 09/09. Plans for LP to assess confusion. Continue hydrocortisone for hypopituitary function. Will discuss with neurology further plans . 09/10. Continue hydrocortisone 10 mg daily. Keppra 750 mg daily. Patient tolerating tube feedings. Discussed with neurology further plans regarding encephalopathy. 09/11. Patient much more verbal this morning. Patient appears to be potentially back to baseline. We will discuss with family. Patient remains in sinus rhythm. No long-term anticoagulation given recent GI bleed, gastric ulcer, anemia and advanced dementia. Continue to monitor H&H and transfuse for hemoglobin less than 7. Continue PPI. 09/12: Continuously removes her supplemental oxygenation and places it on her forehead. Her SPO2 is in the high 90s on room air therefore RN was instructed to decrease oxygenation off. This morning RN was instructed to remove CVL as it is somewhat pulled back and to obtain a peripheral IV. Patient will have her lumbar puncture done today. 09/13: Patient is scheduled for lumbar puncture today. Patient remains on room air no acute events reported overnight. Her CVL has been removed. 09/14: Her viral panel and culture are pending in her CSF analysis. CM is to speak with family regarding discharge as they originally wanted the patient to be discharged home. No acute events reported overnight. 09/15: No acute events reported overnight. This morning we attempted to remove her Montalvo catheter however the patient exhibited urinary retention and the Montalvo catheter was replaced. We anticipate discharge tomorrow if all hospital equipment is provided at home. Hospitalist Physical - Physical exam Narrative exam: Physical therapy not conducted an effort to conserve PPE and reduce risk of transmission - Constitutional Vitals: Temp Pulse Resp BP Pulse Ox 98.4 F 83 18 137/79 100 09/15/20 12:37 09/15/20 12:37 09/15/20 12:37 09/15/20 12:37 09/15/20 12:37 General appearance: Present: no acute distress, well-nourished, other (Lethargic and confused) HEART Score - HEART Score Troponin: Troponin T 0.075 ng/mL (0.00-0.029) H 08/18/20 18:25 Troponin: 1-3x normal limit - Critical Actions Critical Actions: 4-6 pts:12-16.6% risk of adverse cardiac event. Should be admitted Results - Labs CBC & Chem 7: 09/11/20 05:44 09/14/20 07:01 Labs: Laboratory Last Values WBC 6.6 K/mm3 (4.5-11.0) 09/11/20 05:44 RBC 2.95 M/mm3 (3.65-5.03) L 09/11/20 05:44 Hgb 8.6 gm/dl (10.1-14.3) L 09/11/20 05:44 Hct 26.5 % (30.3-42.9) L 09/11/20 05:44 MCV 90 fl (79-97) 09/11/20 05:44 MCH 29 pg (28-32) 09/11/20 05:44 MCHC 32 % (30-34) 09/11/20 05:44 RDW 16.8 % (13.2-15.2) H 09/11/20 05:44 Plt Count 193 K/mm3 (140-440) 09/11/20 05:44 Lymph % (Auto) 14.6 % (13.4-35.0) 09/11/20 05:44 [place] % (Auto) 6.1 % (0.0-7.3) 09/11/20 05:44 Eos % (Auto) 0.8 % (0.0-4.3) 09/11/20 05:44 Baso % (Auto) 0.2 % (0.0-1.8) 09/11/20 05:44 Lymph # (Auto) 1.0 K/mm3 (1.2-5.4) L 09/11/20 05:44 [place] # (Auto) 0.4 K/mm3 (0.0-0.8) 09/11/20 05:44 Eos # (Auto) 0.1 K/mm3 (0.0-0.4) 09/11/20 05:44 Baso # (Auto) 0.0 K/mm3 (0.0-0.1) 09/11/20 05:44 Add Manual Diff Complete 08/31/20 06:20 Total Counted 100 08/31/20 06:20 Seg Neutrophils % 78.3 % (40.0-70.0) H 09/11/20 05:44 Seg Neuts % (Manual) 87.0 % (40.0-70.0) H 08/31/20 06:20 Band Neutrophils % 1.0 % 08/31/20 06:20 Lymphocytes % (Manual) 5.0 % (13.4-35.0) L 08/31/20 06:20 Reactive Lymphs % (Man) 1.0 % 08/28/20 10:07 Monocytes % (Manual) 5.0 % (0.0-7.3) 08/31/20 06:20 Metamyelocytes % 2.0 % 08/31/20 06:20 Nucleated RBC % Not Reportable 08/31/20 06:20 Seg Neutrophils # 5.2 K/mm3 (1.8-7.7) 09/11/20 05:44 Seg Neutrophils # Man 15.1 K/mm3 (1.8-7.7) H 08/31/20 06:20 Band Neutrophils # 0.2 K/mm3 08/31/20 06:20 Lymphocytes # (Manual) 0.9 K/mm3 (1.2-5.4) L 08/31/20 06:20 Abs React Lymphs (Man) 0.0 K/mm3 08/31/20 06:20 Monocytes # (Manual) 0.9 K/mm3 (0.0-0.8) H 08/31/20 06:20 Eosinophils # (Manual) 0.0 K/mm3 (0.0-0.4) 08/31/20 06:20 Basophils # (Manual) 0.0 K/mm3 (0.0-0.1) 08/31/20 06:20 Metamyelocytes # 0.3 K/mm3 08/31/20 06:20 Myelocytes # 0.0 K/mm3 08/31/20 06:20 Promyelocytes # 0.0 K/mm3 08/31/20 06:20 Blast Cells # 0.0 K/mm3 08/31/20 06:20 WBC Morphology Not Reportable 08/31/20 06:20 Hypersegmented Neuts Not Reportable 08/31/20 06:20 Hyposegmented Neuts Not Reportable 08/31/20 06:20 Hypogranular Neuts Not Reportable 08/31/20 06:20 Smudge Cells Not Reportable 08/31/20 06:20 Toxic Granulation Not Reportable 08/31/20 06:20 Toxic Vacuolation Not Reportable 08/31/20 06:20 Dohle Bodies Not Reportable 08/31/20 06:20 Pelger-Huet Anomaly Not Reportable 08/31/20 06:20 Marie Rods Not Reportable 08/31/20 06:20 Platelet Estimate Consistent w auto 08/31/20 06:20 Clumped Platelets Not Reportable 08/31/20 06:20 Plt Clumps, EDTA Not Reportable 08/31/20 06:20 Large Platelets Not Reportable 08/31/20 06:20 Giant Platelets Not Reportable 08/31/20 06:20 Platelet Satelliting Not Reportable 08/31/20 06:20 Plt Morphology Comment Not Reportable 08/31/20 06:20 RBC Morphology Not Reportable 08/31/20 06:20 Dimorphic RBCs Not Reportable 08/31/20 06:20 Polychromasia Not Reportable 08/31/20 06:20 Hypochromasia Not Reportable 08/31/20 06:20 Poikilocytosis Not Reportable 08/31/20 06:20 Anisocytosis 1+ 08/31/20 06:20 Microcytosis Not Reportable 08/31/20 06:20 Macrocytosis Not Reportable 08/31/20 06:20 Spherocytes Not Reportable 08/31/20 06:20 Pappenheimer Bodies Not Reportable 08/31/20 06:20 Sickle Cells Not Reportable 08/31/20 06:20 Target Cells Not Reportable 08/31/20 06:20 Tear Drop Cells Not Reportable 08/31/20 06:20 Ovalocytes Not Reportable 08/31/20 06:20 Helmet Cells Not Reportable 08/31/20 06:20 [place] Bodies Not Reportable 08/31/20 06:20 [place] Rings Not Reportable 08/31/20 06:20 Darren Cells Not Reportable 08/31/20 06:20 Bite Cells Not Reportable 08/31/20 06:20 Crenated Cell Not Reportable 08/31/20 06:20 Elliptocytes Not Reportable 08/31/20 06:20 Acanthocytes (Spur) Not Reportable 08/31/20 06:20 Rouleaux Not Reportable 08/31/20 06:20 Hemoglobin C Crystals Not Reportable 08/31/20 06:20 Schistocytes Not Reportable 08/31/20 06:20 Malaria parasites Not Reportable 08/31/20 06:20 [place] Bodies Not Reportable 08/31/20 06:20 Hem Pathologist Commnt No 08/31/20 06:20 PT 15.7 Sec. (12.2-14.9) H 09/09/20 09:44 INR 1.25 (0.87-1.13) H 09/09/20 09:44 APTT 45.2 Sec. (24.2-36.6) H 09/09/20 09:44 D-Dimer 2409.74 ng/mlDDU (0-234) H 08/18/20 Unknown Sodium 139 mmol/L (137-145) 09/14/20 07:01 Potassium 3.7 mmol/L (3.6-5.0) 09/14/20 07:01 Chloride 105.6 mmol/L (98-107) 09/14/20 07:01 Carbon Dioxide 31 mmol/L (22-30) H 09/14/20 07:01 Anion Gap 6 mmol/L 09/14/20 07:01 BUN 14 mg/dL (7-17) 09/14/20 07:01 Creatinine 0.3 mg/dL (0.6-1.2) L 09/14/20 07:01 Estimated GFR > 60 ml/min 09/14/20 07:01 BUN/Creatinine Ratio 47 % 09/14/20 07:01 Glucose 139 mg/dL (65-100) H 09/14/20 07:01 POC Glucose 120 mg/dL (70-105) H 09/15/20 12:24 Lactic Acid 1.00 mmol/L (0.7-2.0) 08/18/20 18:25 Calcium 7.2 mg/dL (8.4-10.2) L 09/14/20 07:01 Phosphorus 5.50 mg/dL (2.5-4.5) H 09/08/20 04:52 Magnesium 2.10 mg/dL (1.7-2.3) 09/08/20 04:52 Ferritin 1950.0 ng/mL (10.0-200.0) H 08/18/20 15:35 Total Bilirubin 0.50 mg/dL (0.1-1.2) 09/04/20 05:57 AST 11 units/L (5-40) 09/04/20 05:57 ALT 8 units/L (7-56) 09/04/20 05:57 Alkaline Phosphatase 59 units/L (35-129) 09/04/20 05:57 Ammonia 32.0 umol/L (25-60) 08/25/20 09:06 Lactate Dehydrogenase 228 units/L (91-180) H 08/18/20 15:35 Total Creatine Kinase 164 units/L (30-135) H 08/22/20 19:44 Troponin T 0.075 ng/mL (0.00-0.029) H 08/18/20 18:25 C-Reactive Protein 35.60 mg/dL (0.00-1.30) H 08/18/20 15:35 Total Protein 4.2 g/dL (6.3-8.2) L 09/04/20 05:57 Albumin 2.5 g/dL (3.9-5) L 09/04/20 05:57 Albumin/Globulin Ratio 1.5 % 09/04/20 05:57 Triglycerides 70 mg/dL (2-149) 08/31/20 06:20 Cholesterol 79 mg/dL (50-199) 08/18/20 18:25 LDL Cholesterol Direct 42 mg/dL (50-130) L 08/18/20 18:25 HDL Cholesterol 23 mg/dL (40-59) L 08/18/20 18:25 Cholesterol/HDL Ratio 3.43 % 08/18/20 18:25 Vitamin B12 721.0 pg/mL (211-911) 08/25/20 09:06 Folate 8.34 ng/mL (7.3-26.0) 08/25/20 09:06 Procalcitonin 4.00 ng/mL (<0.15) 08/18/20 15:35 TSH 0.056 mlU/mL (0.270-4.200) L 08/24/20 17:02 Free T4 1.59 ng/dL (0.76-1.46) H 08/26/20 10:22 Free T3 Index 1.2 pg/mL (2.3-4.2) L 08/26/20 10:22 Total Cortisol 37.6 mcg/dL () 09/02/20 05:30 Urine Color Yellow (Yellow) 09/08/20 06:14 Urine Turbidity Turbid (Clear) 09/08/20 06:14 Urine pH 5.0 (5.0-7.0) 09/08/20 06:14 Ur Specific [place] 1.009 (1.003-1.030) 09/08/20 06:14 Urine Protein 100 mg/dl mg/dL (Negative) 09/08/20 06:14 Urine Glucose (UA) Neg mg/dL (Negative) 09/08/20 06:14 Urine Ketones Neg mg/dL (Negative) 09/08/20 06:14 Urine Blood Lg (Negative) 09/08/20 06:14 Urine Nitrite Neg (Negative) 09/08/20 06:14 Urine Bilirubin Neg (Negative) 09/08/20 06:14 Urine Urobilinogen < 2.0 mg/dL (<2.0) 09/08/20 06:14 Ur Leukocyte Esterase Mod (Negative) 09/08/20 06:14 Urine WBC (Auto) > 182.0 /HPF (0.0-6.0) H 09/08/20 06:14 Urine RBC (Auto) > 182.0 /HPF (0.0-6.0) 09/08/20 06:14 U Epithel Cells (Auto) 1.0 /HPF (0-13.0) 08/18/20 Unknown Urine Bacteria (Auto) 4+ /HPF (Negative) 09/08/20 06:14 Urine WBC Clumps 3+ /HPF 09/08/20 06:14 Urine Mucus 1+ /HPF 09/08/20 06:14 Ur Yeast w Hyphae 2+ /HPF 09/08/20 06:14 Urine Yeast (Budding) 2+ /HPF 09/08/20 06:14 CSF Appearance Clear 09/13/20 Unknown CSF Color Colorless 09/13/20 Unknown CSF WBC 2 /mm3 (1-10) 09/13/20 Unknown CSF RBC 2 /mm3 (0-0) 09/13/20 Unknown CSF Seg Neutrophils 0 % (0-6) 09/13/20 Unknown CSF Lymphocytes % 1 % (40-80) 09/13/20 Unknown CSF Reactive Lymphs 0 % 09/13/20 Unknown CSF Monocytes % 0 % (15-45) 09/13/20 Unknown CSF Eosinophils % 0 % 09/13/20 Unknown CSF Basophils 0 % 09/13/20 Unknown CSF Pathologist Review C 09/13/20 Unknown CSF Glucose 53 mg/dL 09/13/20 Unknown CSF Total Protein 49 mg/dL 09/13/20 Unknown Random Vancomycin 9.8 ug/mL (0-40.0) 08/19/20 19:02 Coronavirus (PCR) Positive (Negative) A 09/04/20 10:27 Blood Type O POSITIVE 08/27/20 20:44 Antibody Screen Negative 08/27/20 20:44 Crossmatch See Detail 08/27/20 20:44 Microbiology: Microbiology 09/13/20 Unknown Cerebral Spinal Fluid CSF Culture - Preliminary Montalvo/IV: Voiding Method External Female Catheter IV Catheter Type [Right INT / Saline Lock Forearm] IV Catheter Type [Left Forearm INT / Saline Lock ] IV Catheter Type [Left Hand] INT / Saline Lock IV Catheter Type [Left Triple Lumen Cath Internal Jugular] IV Catheter Type [Left] CVL Active Medications - Current Medications Current Medications: Generic Name Dose Route Start Last Admin Trade Name Freq PRN Reason Stop Dose Admin Acetaminophen 650 mg 09/07/20 19:17 09/07/20 22:50 Acetaminophen 325 Mg/10.15 Ml Oral Liqd Unit Dose FEEDTUBE 650 mg Q6H PRN Administration Pain, Mild (1-3) Amlodipine Besylate 5 mg 09/12/20 10:00 09/15/20 10:10 Amlodipine 5 Mg Tab PO 5 mg DAILY BARBARA Administration Lipase/Protease/Amylase 1 each 09/06/20 19:27 Lipase 10,500/Protease 25,000/Amylase 43,750 (Units) Dr Fernandez FEEDTUBE PRN PRN For Clogged Feeding Tube Atorvastatin Calcium 20 mg 09/12/20 22:00 09/14/20 23:12 Atorvastatin 20 Mg Tab PO 20 mg QHS BARBARA Administration Atropine Sulfate 1 mg 08/23/20 16:56 Atropine 1 Mg/Ml Vial IV PRN PRN Bradycardia Clonidine HCl 0.2 mg 08/31/20 22:00 09/14/20 23:12 Clonidine Tts 0.2 Mg/24 Hr Patch TD 0.2 mg We BARBARA Administration Cyanocobalamin 1,000 mcg 09/12/20 10:00 09/15/20 10:10 Cyanocobalamin (Vit B-12) 1000 Mcg Tab PO 1,000 mcg DAILY BARBARA Administration Folic Acid 1 mg 09/12/20 10:00 09/15/20 10:10 Folic Acid 1 Mg Tab PO 1 mg DAILY BARBARA Administration Hydralazine HCl 5 mg 08/31/20 21:22 09/06/20 23:43 Hydralazine 20 Mg/1 Ml Inj IV 5 mg Q4H PRN Administration Blood Pressure Hydrocortisone Acetate 10 mg 09/07/20 22:00 09/15/20 10:10 Hydrocortisone 10 Mg Tab FEEDTUBE 10 mg Q12HR BARBARA Administration Insulin Glargine 5 units 09/03/20 22:00 09/15/20 10:10 Insulin Glargine 100 Units/Ml SUB-Q 5 units BID BARBARA Administration Insulin Human Lispro 0 unit 09/07/20 12:00 09/15/20 13:01 Insulin Lispro 100 Unit/Ml Vial 3 Ml SUB-Q Not Given Q6H [facility] Protocol Lansoprazole 30 mg 09/08/20 10:00 09/15/20 10:10 Lansoprazole 30 Mg Solutab FEEDTUBE 30 mg QDAY BARBARA Administration Levetiracetam 750 mg 09/07/20 22:00 09/15/20 10:10 Levetiracetam 500 Mg/5 Ml Oral Liqd FEEDTUBE 750 mg BID BARBARA Administration Levothyroxine Sodium 50 mcg 09/08/20 06:00 09/15/20 06:36 Levothyroxine 50 Mcg Tab FEEDTUBE 50 mcg DAILY@0600 BARBARA Administration Lisinopril 20 mg 09/14/20 10:00 09/15/20 10:10 Lisinopril 20 Mg Tab PO 20 mg QDAY BARBARA Administration Ondansetron HCl 4 mg 09/07/20 19:17 Ondansetron 4 Mg/2 Ml Inj IV Q8H PRN Nausea Simple Syrup 15 ml 09/06/20 19:27 09/11/20 23:38 Simple Syrup 15 Ml FEEDTUBE 15 ml PRN PRN Administration Hypoglycemia Simple Syrup 30 ml 09/06/20 19:27 Simple Syrup 15 Ml FEEDTUBE PRN PRN Hypoglycemia Sodium Bicarbonate 325 mg 09/06/20 19:27 Sodium Bicarbonate 325 Mg Tab FEEDTUBE PRN PRN For Clogged Feeding Tube Nutrition/Malnutrition Assess - Dietary Evaluation Nutrition/Malnutrition Findings: Nutrition Notes Start: 08/23/20 10:57 Freq: Status: Active Protocol: Document 09/14/20 10:41 EN (Rec: 09/14/20 10:47 EN [id number]) Co-Sign 09/14/20 10:41 MK Nutrition Notes Initial or Follow up Reassessment Current Diagnosis Acute Kidney Injury,Diabetes, Sepsis Other Pertinent Diagnosis Encephalopathy, COVID-19 (+), GIB, UTI, gastric ulcer, gastritis, AMS Current Diet Jevity 1.2 at 50ml/hr Labs/Tests Reviewed Pertinent Medications Lantus Folic Acid Vitamin B 12 Height 5 ft 5 in Weight 81.4 kg [place] Body Weight (kg) 56.81 BMI 29.8 Weight Status Appropriate Subjective/Other Information F/u for TF tolerance and BG control. BG is slightly improved and TF infusing at goal rate. RN reports pt tolerating TF well with no concerns. Percent of energy/protein needs met: 94%/83% Burn Absent Trauma Absent GI Symptoms None Current % PO Negligible Minimum of two criteria No Fluid Accumulation Mild (non-severe) #2 Nutrition Diagnosis Increased nutrient needs ( specify in comment below) Diagnosis Progress(for reassessment Continues documentation) #1 Nutrition Diagnosis Inadequate oral intake Diagnosis Progress(for reassessment Continues documentation) Is patient on ventilator? No Is Patient Ambulatory and/or Out of Bed No REE-([place]-St. Jeor-confined to bed) [phone] Calculation Used for Recommendations [place]-St Jeor Additional Notes Protein: 81-97 g 1-1.2 g/kg) Fluid needs 1ml/kcal Nutrition Intervention Change Diet Order: Continue TF Nutrition Support: Jevity 1.2 at 50ml/hr Flush with 100ml q4h Kcal 1,440 Protein (gm) 67 Fluid (mL) 968 Goal #1 Meet at least 80% of kcal and protein needs Anticipated Discharge Needs: TF Follow-Up By: 09/20/20 Additional Comments F/u for TF tolerance and BG labs
[2020-09-16] MEDS: INSULIN LISPRO 100 UNIT/ML VIAL 3 mL SUB-Q SCH ×4 (00:07→18:02)
[2020-09-16] MEDS: LEVOTHYROXINE 50 MCG TAB FEEDTUBE SCH (06:27)
[2020-09-16 06:33] LABS: Hematocrit 25.7 % (30.3-42.9); Hemoglobin 8.7 gm/dl (10.1-14.3); Mean Corpuscular HGB Conc 34 % (30-34); Mean Corpuscular Volume 87 fl (79-97); Platelet Count 280 K/mm3 (140-440); Red Blood Count 2.95 M/mm3 (3.65-5.03)
[2020-09-16 06:42] LABS: Blood Urea Nitrogen 12 mg/dL (7-17); Calcium 7.1 mg/dL (8.4-10.2); Hemolysis Index 0
[2020-09-16 06:47] LABS: BUN/Creatinine Ratio 40
[2020-09-16] MEDS ORDERED: POTASSIUM CHLORIDE 20 MEQ PACKET FEEDTUBE NR ×2 (07:32→09:00)
[2020-09-16] MEDS: LANSOPRAZOLE 30 MG SOLUTAB FEEDTUBE SCH (10:01)
[2020-09-16] MEDS: INSULIN GLARGINE 100 UNITS/ML SUB-Q SCH ×2 (10:01→22:17)
[2020-09-16] MEDS: LISINOPRIL 20 MG TAB PO SCH (10:02)
[2020-09-16] MEDS: CYANOCOBALAMIN (VIT B-12) 1000 MCG TAB PO SCH (10:02)
[2020-09-16] MEDS: HYDROCORTISONE 10 MG TAB FEEDTUBE SCH ×2 (10:02→21:02)
[2020-09-16] MEDS: FOLIC ACID 1 MG TAB PO SCH (10:02)
[2020-09-16] MEDS: levETIRAcetam 500 MG/5 ML ORAL LIQD FEEDTUBE SCH ×2 (10:02→21:02)
[2020-09-16] MEDS: amLODIPine 5 MG TAB PO SCH (10:03)
--- NOTE | 2020-09-16 10:24 | Progress Note ---
Assessment and Plan Paroxysmal atrial fibrillation currently in sinus rhythm rate control has been optimal without use of significant AV yoan blocking therapy, suggesting underlying conduction system disease. further use of long-term anticoagulation will not be recommended at this time, in the setting of the recent GI bleed and severe anemia. 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 Subjective Date of service: 09/16/20 Principal diagnosis: Acute encephalopathy Interval history: No interval cardiac changes. Stable sinus rhythm on telemetry. Objective Vital Signs Temp Pulse Resp BP BP Pulse Ox 09/16/20 10:02 140/60 09/16/20 06:37 97.9 F 77 18 143/61 98 09/15/20 22:28 97.5 F L 71 16 87/30 100 09/15/20 17:13 98.9 F 79 20 171/63 99 09/15/20 12:37 98.4 F 83 18 137/79 100 - Physical Examination Narrative exam: Deferred due to isolation protocol. Cardiac: Positive: Reg Rate and Rhythm - Labs and Meds CBC 09/16/20 Range/Units 05:07 WBC 7.8 (4.5-11.0) K/mm3 RBC 2.95 L (3.65-5.03) M/mm3 Hgb 8.7 L (10.1-14.3) gm/dl Hct 25.7 L (30.3-42.9) % Plt Count 280 (140-440) K/mm3 Comprehensive Metabolic Panel 09/16/20 Range/Units 05:07 Sodium 138 (137-145) mmol/L Potassium 3.3 L (3.6-5.0) mmol/L Chloride 102.1 (98-107) mmol/L Carbon Dioxide 32 H (22-30) mmol/L BUN 12 (7-17) mg/dL Creatinine 0.3 L (0.6-1.2) mg/dL Glucose 122 H (65-100) mg/dL Calcium 7.1 L (8.4-10.2) mg/dL - Imaging and Cardiology EKG: report reviewed
--- NOTE | 2020-09-16 11:38 | Progress Note ---
<MELVINSCAR H. - Last Filed: 09/16/20 11:39> Assessment and Plan Assessment and plan: Sepsis -Patient presented with tachycardia, hypotension, tachypnea, leukocytosis, febrile, acute kidney injury, urinary tract infection -Patient found to have urinary tract infection 11 by urinary analysis -08/18 blood cultures x2 no growth to date -08/18 urine culture no growth to date -Infectious disease consulted,appreciate recommendations -S/p antibiotic therapy Acute toxic metabolic encephalopathy -Possibly secondary to infection versus PAWAN -Patient has baseline dementia -Supportive care -Aspiration/fall precautions -LP pending Extensive skull base meningioma -Noted on CT head -Neurosurgery consulted, appreciate recommendations -No acute intervention indicated at this time per neurosurgery Gastric ulcer, acute -Noted on endoscopy -No active bleeding -Supportive care -PPI Urinary retention, acute -Montalvo catheter had to be placed during hospital stay for urinary retention -09/15 attempted to remove Montalvo catheter however patient still exhibited retention the Montalvo was replaced -Patient will be discharged with Montalvo catheter in place -We will need to follow-up with urology outpatient within 1 to 2 weeks of dis charge Elevated D-dimer, acute -D-dimer noted to be 2409.7 and thus empirically started on therapeutic dose anticoagulation. 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 -09/16 repeat COVID ordered at family request Urinary tract infection, resolved -08/18/2020 urinalysis shows trace leukocyte Estrace and pyuria -08/18 urine culture negative -S/p antibiotic therapy Acute kidney injury, resolved -S/p MIVF -Presented with creatinine/BUN of 3.5/55 -Patient's creatinine has trended down to 0.3 and BUN 17 -Avoid nephrotoxic medications -Renally dose medications -Strict urine output -Secondary to vasomotor nephropathy Leukocytosis, resolved -Admit WBC 20.3 -S/p antibiotic therapy -Trend CBC -09/11 WBC 6.6 -Patient is on chronic steroid therapy for Monona's disease Hypernatremia, resolved -Presented with a sodium of 146 which trended down but then trended back up to 150 and is now 146 -Trend BMP -Free water flush -09/12 Na 143 Hyperchloremia, resolved -Patient's chloride trended up to 119.3 -09/12 chloride 110 -Trend BMP -Free water flush -09/14 Cl 105.6 Acute hypoxic respiratory failure, resolved -Supplemental oxygen as needed -Pulmonary hygiene -SPO2 monitoring GI bleed/hematochezia, resolved -Endoscopic evaluation revealed gastric ulcer. No active bleeding -Supportive care -PPI -S/p PEG tube on tube feedings History Interval history: The patient is an 80-year-old woman with advanced dementia who lives in a fpc, Mehran's disease, hypertension, vitamin D deficiency, seizure disorder, and hyperlipidemia who presents the emergency department for altered mental status. On presentation to the emergency room, her white count was markedly elevated at 20,000, low grade fever, PAWAN with BUN 55 and creatinine of 3.5 and elevated Mell as well as meningioma on CT head. Neurosurgery, cardiology, nephrology, heme-onc and infectious disease were consulted. 08/24/2020. Patient still mildly confused. However, I suspect patient has underlying Alzheimer's dementia and this is her baseline. I discussed plan of care and altered mentation with sister at [phone]. Patient will need DME of hospital bed and oxygen for discharge home. Await physical therapy recommendations. 08/25/2020. Patient still lethargic and confused. Patient receiving hydrocortisone 50 mg IV twice daily for adrenal insufficiency. Check B12, folate and ammonia levels. Neurology consultation pending. Continue supplemental oxygen to maintain sats greater than 92%. 08/26/2020. Encephalopathy likely secondary to toxic metabolic causes in the setting of leukocytosis, improving uremia, renal insufficiency, covid-19, underlying uti. Check CT head without contrast and EEG per neurology recomme ndations. However may need csf evaluation if brain imaging and eeg are unremarkable and pt continues to remain encephalopathic. Follow-up cortisol levels and T3-T4. 08/27/2020. Patient remains lethargic and confused. Encephalopathy is persistent and likely secondary to toxic metabolic causes from sepsis, renal insufficiency/uremia, COVID-[address] scan of the head found to be negative. Await EEG. Consider CSF evaluation if EEG unremarkable. Consult GI for further evaluation of hematochezia/GI bleed. Continue Protonix 40 mg IV twice daily. Transfuse for hemoglobin less than 7. Continue to monitor serial CBC. Lovenox discontinued which was empirically started for elevated D-dimer. 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 Decrease IV hydrocortisone. Follow-up cortisol levels and T3-T4. I updated the sister and family at [phone]. 08/28/2020. Follow-up EEG per neurology. GI reports if signs of hemodynamic changes, we will proceed with stat bleeding scan. Hemoglobin has dropped to 6.8. Type and cross and transfuse 2 units. Continue to hold anticoagulation. Continue Protonix 40 mg IV twice daily. Nursing reports inability to place NG tube. Place PICC line and start TPN. Dietitian consulted. ? NG tube placement under fluoroscopy. Patient may need PEG tube placement. 08/29/2020. Patient is s/p 3 units PRBCs. Hemoglobin has stabilized to 11.5. Continue to trend and follow serial H/H. Patient remains hemodynamically stable. If patient has a change, we will proceed with stat bleeding scan. GI following. Continue Protonix 40 mg IV twice daily. Continue to hold anticoagulation. Nursing reports inability to place NG tube. PICC line placed to initiate TPN. Dietitian consulted. ? NG tube placement under fluoroscopy. Patient may need PEG tube placement. 08/30/2020. Hemoglobin remained stable. Patient is on TPN and will not be discharged on TPN. NG tube could not be placed as per RN.. Awaiting EEG to rule out any seizures. If no etiology found, patient will benefit from a PEG placement as she has advanced dementia. Continue to hold anticoagulation due to recent GI bleed. GI to reevaluate for PEG placement. 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 Not clear if this is baseline. Need to retrieve her records from previous hospitalization. Neurosurgery consulted for evaluation. 09/01/2020. She is remains confused. Neurology evaluation appreciated. No intervention for brain mass. She is on hydrocortisone for hypopituitary function. Will adjust based on cortisol levels. She will need to have PEG placement for feeds ultimately as she will not be on TPN for a long time. Will reconsult GI for NG tube placement. 09/02. Plan for PEG placement today. She is awake and alert to person only. Vitals stable. 09/03. Had EGD which showed gastritis. Patient will need to have a PEG placement by other means-IR or surgery as per GI. Now on PPI twice daily. Biopsy from gastric ulcer sent. She remains on TPN. Plan to discuss PEG placement IR or surgery. Plan for LP as well. 09/04. Surgery has been consulted for PEG placement. COVID-19 test sent. She remains on TPN. LP still pending 09/05. Patient is awake today but confused. COVID-19 test remains positive. Patients PEG placement may be held for now as per surgery continue Covid infecti on resolved. She remains on TPN. LP still pending. 09/06. Patient remains confused. COVID-19 test remains positive. Patients PEG placement may be held for now as per surgery continue Covid infection resolved. She remains on TPN. LP still pending. 09/07. Surgery completed laparoscopic-assisted PEG tube placement. Advance tube feeding per dietitian/art handler recommendations. Patient has had optimal rate control without use of significant AV yoan blocking therapy which suggests underlying conduction system disease per cardiology. Cardiology does not recommend further use of long-term anticoagulation in the setting of recent GI bleed, anemia, AMS and age. I will call the sister to update her regarding care but no answer. Message left. 09/08. Patient tolerating PEG tube feedings. Awaiting LP. Patient remains confused. Continue hydrocortisone for hypopituitary function. Will discuss with neurology further plans . 09/09. Plans for LP to assess confusion. Continue hydrocortisone for hypopituitary function. Will discuss with neurology further plans . 09/10. Continue hydrocortisone 10 mg daily. Keppra 750 mg daily. Patient tolerating tube feedings. Discussed with neurology further plans regarding encephalopathy. 09/11. Patient much more verbal this morning. Patient appears to be potentially back to baseline. We will discuss with family. Patient remains in sinus rhythm. No long-term anticoagulation given recent GI bleed, gastric ulcer, anemia and advanced dementia. Continue to monitor H&H and transfuse for hemoglobin less than 7. Continue PPI. 09/12: Continuously removes her supplemental oxygenation and places it on her forehead. Her SPO2 is in the high 90s on room air therefore RN was instructed to decrease oxygenation off. This morning RN was instructed to remove CVL as it is somewhat pulled back and to obtain a peripheral IV. Patient will have her lumbar puncture done today. 09/13: Patient is scheduled for lumbar puncture today. Patient remains on room air no acute events reported overnight. Her CVL has been removed. 09/14: Her viral panel and culture are pending in her CSF analysis. CM is to speak with family regarding discharge as they originally wanted the patient to be discharged home. No acute events reported overnight. 09/15: No acute events reported overnight. This morning we attempted to remove her Montalvo catheter however the patient exhibited urinary retention and the Montalvo catheter was replaced. We anticipate discharge tomorrow if all hospital equipment is provided at home. 09/16: Hypokalemia, repleated. AM BMP, Family updated by Dr. Maldonado and family requests delay in discharge till all DME arrives and a COVID 19 PCR. Patient is more talkative today but she does not make sense. Hospitalist Physical - Constitutional Vitals: Temp Pulse Resp BP Pulse Ox 97.9 F 77 18 140/60 98 09/16/20 06:37 09/16/20 06:37 09/16/20 06:37 09/16/20 10:02 09/16/20 06:37 General appearance: Present: no acute distress, well-nourished, obese, other (Lethargic and confused) - EENT Eyes: Present: EOM intact ENT: clear oral mucosa, hearing decreased - Neck Neck: Present: normal ROM - Respiratory Respiratory effort: normal - Cardiovascular Rhythm: regular - Extremities Extremities: no ischemia, pulses intact, pulses symmetrical, No edema, normal temperature, normal color, Full ROM Peripheral Pulses: within normal limits - Abdominal General gastrointestinal: soft, non-tender, non-distended, normal bowel sounds - Integumentary Integumentary: Present: clear, warm, dry - Psychiatric Psychiatric: appropriate mood/affect, no cooperative - Neurologic Neurologic: CNII-XII intact, no focal deficits, moves all extremities - Allied Health Allied health notes reviewed: nursing HEART Score - HEART Score Troponin: Troponin T 0.075 ng/mL (0.00-0.029) H 08/18/20 18:25 Troponin: 1-3x normal limit - Critical Actions Critical Actions: 4-6 pts:12-16.6% risk of adverse cardiac event. Should be admitted Results - Labs CBC & Chem 7: 09/16/20 05:07 09/16/20 05:07 Labs: Laboratory Last Values WBC 7.8 K/mm3 (4.5-11.0) 09/16/20 05:07 RBC 2.95 M/mm3 (3.65-5.03) L 09/16/20 05:07 Hgb 8.7 gm/dl (10.1-14.3) L 09/16/20 05:07 Hct 25.7 % (30.3-42.9) L 09/16/20 05:07 MCV 87 fl (79-97) 09/16/20 05:07 MCH 29 pg (28-32) 09/16/20 05:07 MCHC 34 % (30-34) 09/16/20 05:07 RDW 16.0 % (13.2-15.2) H 09/16/20 05:07 Plt Count 280 K/mm3 (140-440) 09/16/20 05:07 Lymph % (Auto) 14.6 % (13.4-35.0) 09/11/20 05:44 [place] % (Auto) 6.1 % (0.0-7.3) 09/11/20 05:44 Eos % (Auto) 0.8 % (0.0-4.3) 09/11/20 05:44 Baso % (Auto) 0.2 % (0.0-1.8) 09/11/20 05:44 Lymph # (Auto) 1.0 K/mm3 (1.2-5.4) L 09/11/20 05:44 [place] # (Auto) 0.4 K/mm3 (0.0-0.8) 09/11/20 05:44 Eos # (Auto) 0.1 K/mm3 (0.0-0.4) 09/11/20 05:44 Baso # (Auto) 0.0 K/mm3 (0.0-0.1) 09/11/20 05:44 Add Manual Diff Complete 08/31/20 06:20 Total Counted 100 08/31/20 06:20 Seg Neutrophils % 78.3 % (40.0-70.0) H 09/11/20 05:44 Seg Neuts % (Manual) 87.0 % (40.0-70.0) H 08/31/20 06:20 Band Neutrophils % 1.0 % 08/31/20 06:20 Lymphocytes % (Manual) 5.0 % (13.4-35.0) L 08/31/20 06:20 Reactive Lymphs % (Man) 1.0 % 08/28/20 10:07 Monocytes % (Manual) 5.0 % (0.0-7.3) 08/31/20 06:20 Metamyelocytes % 2.0 % 08/31/20 06:20 Nucleated RBC % Not Reportable 08/31/20 06:20 Seg Neutrophils # 5.2 K/mm3 (1.8-7.7) 09/11/20 05:44 Seg Neutrophils # Man 15.1 K/mm3 (1.8-7.7) H 08/31/20 06:20 Band Neutrophils # 0.2 K/mm3 08/31/20 06:20 Lymphocytes # (Manual) 0.9 K/mm3 (1.2-5.4) L 08/31/20 06:20 Abs React Lymphs (Man) 0.0 K/mm3 08/31/20 06:20 Monocytes # (Manual) 0.9 K/mm3 (0.0-0.8) H 08/31/20 06:20 Eosinophils # (Manual) 0.0 K/mm3 (0.0-0.4) 08/31/20 06:20 Basophils # (Manual) 0.0 K/mm3 (0.0-0.1) 08/31/20 06:20 Metamyelocytes # 0.3 K/mm3 08/31/20 06:20 Myelocytes # 0.0 K/mm3 08/31/20 06:20 Promyelocytes # 0.0 K/mm3 08/31/20 06:20 Blast Cells # 0.0 K/mm3 08/31/20 06:20 WBC Morphology Not Reportable 08/31/20 06:20 Hypersegmented Neuts Not Reportable 08/31/20 06:20 Hyposegmented Neuts Not Reportable 08/31/20 06:20 Hypogranular Neuts Not Reportable 08/31/20 06:20 Smudge Cells Not Reportable 08/31/20 06:20 Toxic Granulation Not Reportable 08/31/20 06:20 Toxic Vacuolation Not Reportable 08/31/20 06:20 Dohle Bodies Not Reportable 08/31/20 06:20 Pelger-Huet Anomaly Not Reportable 08/31/20 06:20 Marie Rods Not Reportable 08/31/20 06:20 Platelet Estimate Consistent w auto 08/31/20 06:20 Clumped Platelets Not Reportable 08/31/20 06:20 Plt Clumps, EDTA Not Reportable 08/31/20 06:20 Large Platelets Not Reportable 08/31/20 06:20 Giant Platelets Not Reportable 08/31/20 06:20 Platelet Satelliting Not Reportable 08/31/20 06:20 Plt Morphology Comment Not Reportable 08/31/20 06:20 RBC Morphology Not Reportable 08/31/20 06:20 Dimorphic RBCs Not Reportable 08/31/20 06:20 Polychromasia Not Reportable 08/31/20 06:20 Hypochromasia Not Reportable 08/31/20 06:20 Poikilocytosis Not Reportable 08/31/20 06:20 Anisocytosis 1+ 08/31/20 06:20 Microcytosis Not Reportable 08/31/20 06:20 Macrocytosis Not Reportable 08/31/20 06:20 Spherocytes Not Reportable 08/31/20 06:20 Pappenheimer Bodies Not Reportable 08/31/20 06:20 Sickle Cells Not Reportable 08/31/20 06:20 Target Cells Not Reportable 08/31/20 06:20 Tear Drop Cells Not Reportable 08/31/20 06:20 Ovalocytes Not Reportable 08/31/20 06:20 Helmet Cells Not Reportable 08/31/20 06:20 [place] Bodies Not Reportable 08/31/20 06:20 [place] Rings Not Reportable 08/31/20 06:20 [place] Cells Not Reportable 08/31/20 06:20 Bite Cells Not Reportable 08/31/20 06:20 Crenated Cell Not Reportable 08/31/20 06:20 Elliptocytes Not Reportable 08/31/20 06:20 Acanthocytes (Spur) Not Reportable 08/31/20 06:20 Rouleaux Not Reportable 08/31/20 06:20 Hemoglobin C Crystals Not Reportable 08/31/20 06:20 Schistocytes Not Reportable 08/31/20 06:20 Malaria parasites Not Reportable 08/31/20 06:20 [place] Bodies Not Reportable 08/31/20 06:20 Hem Pathologist Commnt No 08/31/20 06:20 PT 15.7 Sec. (12.2-14.9) H 09/09/20 09:44 INR 1.25 (0.87-1.13) H 09/09/20 09:44 APTT 45.2 Sec. (24.2-36.6) H 09/09/20 09:44 D-Dimer 2409.74 ng/mlDDU (0-234) H 08/18/20 Unknown Sodium 138 mmol/L (137-145) 09/16/20 05:07 Potassium 3.3 mmol/L (3.6-5.0) L 09/16/20 05:07 Chloride 102.1 mmol/L (98-107) 09/16/20 05:07 Carbon Dioxide 32 mmol/L (22-30) H 09/16/20 05:07 Anion Gap 7 mmol/L 09/16/20 05:07 BUN 12 mg/dL (7-17) 09/16/20 05:07 Creatinine 0.3 mg/dL (0.6-1.2) L 09/16/20 05:07 Estimated GFR > 60 ml/min 09/16/20 05:07 BUN/Creatinine Ratio 40 % 09/16/20 05:07 Glucose 122 mg/dL (65-100) H 09/16/20 05:07 POC Glucose 125 mg/dL (70-105) H 09/16/20 06:14 Lactic Acid 1.00 mmol/L (0.7-2.0) 08/18/20 18:25 Calcium 7.1 mg/dL (8.4-10.2) L 09/16/20 05:07 Phosphorus 5.50 mg/dL (2.5-4.5) H 09/08/20 04:52 Magnesium 2.10 mg/dL (1.7-2.3) 09/08/20 04:52 Ferritin 1950.0 ng/mL (10.0-200.0) H 08/18/20 15:35 Total Bilirubin 0.50 mg/dL (0.1-1.2) 09/04/20 05:57 AST 11 units/L (5-40) 09/04/20 05:57 ALT 8 units/L (7-56) 09/04/20 05:57 Alkaline Phosphatase 59 units/L (35-129) 09/04/20 05:57 Ammonia 32.0 umol/L (25-60) 08/25/20 09:06 Lactate Dehydrogenase 228 units/L (91-180) H 08/18/20 15:35 Total Creatine Kinase 164 units/L (30-135) H 08/22/20 19:44 Troponin T 0.075 ng/mL (0.00-0.029) H 08/18/20 18:25 C-Reactive Protein 35.60 mg/dL (0.00-1.30) H 08/18/20 15:35 Total Protein 4.2 g/dL (6.3-8.2) L 09/04/20 05:57 Albumin 2.5 g/dL (3.9-5) L 09/04/20 05:57 Albumin/Globulin Ratio 1.5 % 09/04/20 05:57 Triglycerides 70 mg/dL (2-149) 08/31/20 06:20 Cholesterol 79 mg/dL (50-199) 08/18/20 18:25 LDL Cholesterol Direct 42 mg/dL (50-130) L 08/18/20 18:25 HDL Cholesterol 23 mg/dL (40-59) L 08/18/20 18:25 Cholesterol/HDL Ratio 3.43 % 08/18/20 18:25 Vitamin B12 721.0 pg/mL (211-911) 08/25/20 09:06 Folate 8.34 ng/mL (7.3-26.0) 08/25/20 09:06 Procalcitonin 4.00 ng/mL (<0.15) 08/18/20 15:35 TSH 0.056 mlU/mL (0.270-4.200) L 08/24/20 17:02 Free T4 1.59 ng/dL (0.76-1.46) H 08/26/20 10:22 Free T3 Index 1.2 pg/mL (2.3-4.2) L 08/26/20 10:22 Total Cortisol 37.6 mcg/dL () 09/02/20 05:30 Urine Color Yellow (Yellow) 09/08/20 06:14 Urine Turbidity Turbid (Clear) 09/08/20 06:14 Urine pH 5.0 (5.0-7.0) 09/08/20 06:14 Ur Specific [place] 1.009 (1.003-1.030) 09/08/20 06:14 Urine Protein 100 mg/dl mg/dL (Negative) 09/08/20 06:14 Urine Glucose (UA) Neg mg/dL (Negative) 09/08/20 06:14 Urine Ketones Neg mg/dL (Negative) 09/08/20 06:14 Urine Blood Lg (Negative) 09/08/20 06:14 Urine Nitrite Neg (Negative) 09/08/20 06:14 Urine Bilirubin Neg (Negative) 09/08/20 06:14 Urine Urobilinogen < 2.0 mg/dL (<2.0) 09/08/20 06:14 Ur Leukocyte Esterase Mod (Negative) 09/08/20 06:14 Urine WBC (Auto) > 182.0 /HPF (0.0-6.0) H 09/08/20 06:14 Urine RBC (Auto) > 182.0 /HPF (0.0-6.0) 09/08/20 06:14 U Epithel Cells (Auto) 1.0 /HPF (0-13.0) 08/18/20 Unknown Urine Bacteria (Auto) 4+ /HPF (Negative) 09/08/20 06:14 Urine WBC Clumps 3+ /HPF 09/08/20 06:14 Urine Mucus 1+ /HPF 09/08/20 06:14 Ur Yeast w Hyphae 2+ /HPF 09/08/20 06:14 Urine Yeast (Budding) 2+ /HPF 09/08/20 06:14 CSF Appearance Clear 09/13/20 Unknown CSF Color Colorless 09/13/20 Unknown CSF WBC 2 /mm3 (1-10) 09/13/20 Unknown CSF RBC 2 /mm3 (0-0) 09/13/20 Unknown CSF Seg Neutrophils 0 % (0-6) 09/13/20 Unknown CSF Lymphocytes % 1 % (40-80) 09/13/20 Unknown CSF Reactive Lymphs 0 % 09/13/20 Unknown CSF Monocytes % 0 % (15-45) 09/13/20 Unknown CSF Eosinophils % 0 % 09/13/20 Unknown CSF Basophils 0 % 09/13/20 Unknown CSF Pathologist Review C 09/13/20 Unknown CSF Glucose 53 mg/dL 09/13/20 Unknown CSF Total Protein 49 mg/dL 09/13/20 Unknown Random Vancomycin 9.8 ug/mL (0-40.0) 08/19/20 19:02 Coronavirus (PCR) Positive (Negative) A 09/04/20 10:27 Blood Type O POSITIVE 08/27/20 20:44 Antibody Screen Negative 08/27/20 20:44 Crossmatch See Detail 08/27/20 20:44 Microbiology: Microbiology 09/13/20 Unknown Cerebral Spinal Fluid CSF Culture - Final Montalvo/IV: Voiding Method Indwelling Catheter IV Catheter Type [Right INT / Saline Lock Forearm] IV Catheter Type [Left Forearm INT / Saline Lock ] IV Catheter Type [Left Hand] INT / Saline Lock IV Catheter Type [Left Triple Lumen Cath Internal Jugular] IV Catheter Type [Left] CVL Active Medications - Current Medications Current Medications: Generic Name Dose Route Start Last Admin Trade Name Freq PRN Reason Stop Dose Admin Acetaminophen 650 mg 09/07/20 19:17 09/07/20 22:50 Acetaminophen 325 Mg/10.15 Ml Oral Liqd Unit Dose FEEDTUBE 650 mg Q6H PRN Administration Pain, Mild (1-3) Amlodipine Besylate 5 mg 09/12/20 10:00 09/16/20 10:03 Amlodipine 5 Mg Tab PO 5 mg DAILY BARBARA Administration Lipase/Protease/Amylase 1 each 09/06/20 19:27 Lipase 10,500/Protease 25,000/Amylase 43,750 (Units) Dr Fernandez FEEDTUBE PRN PRN For Clogged Feeding Tube Atorvastatin Calcium 20 mg 09/12/20 22:00 09/15/20 21:40 Atorvastatin 20 Mg Tab PO 20 mg QHS BARBARA Administration Atropine Sulfate 1 mg 08/23/20 16:56 Atropine 1 Mg/Ml Vial IV PRN PRN Bradycardia Clonidine HCl 0.2 mg 08/31/20 22:00 09/14/20 23:12 Clonidine Tts 0.2 Mg/24 Hr Patch TD 0.2 mg We BARBARA Administration Cyanocobalamin 1,000 mcg 09/12/20 10:00 09/16/20 10:02 Cyanocobalamin (Vit B-12) 1000 Mcg Tab PO 1,000 mcg DAILY BARBARA Administration Folic Acid 1 mg 09/12/20 10:00 09/16/20 10:02 Folic Acid 1 Mg Tab PO 1 mg DAILY BARBARA Administration Hydralazine HCl 5 mg 08/31/20 21:22 09/06/20 23:43 Hydralazine 20 Mg/1 Ml Inj IV 5 mg Q4H PRN Administration Blood Pressure Hydrocortisone Acetate 10 mg 09/07/20 22:00 09/16/20 10:02 Hydrocortisone 10 Mg Tab FEEDTUBE 10 mg Q12HR BARBARA Administration Insulin Glargine 5 units 09/03/20 22:00 09/16/20 10:01 Insulin Glargine 100 Units/Ml SUB-Q 5 units BID BARBARA Administration Insulin Human Lispro 0 unit 09/07/20 12:00 09/16/20 06:27 Insulin Lispro 100 Unit/Ml Vial 3 Ml SUB-Q Not Given Q6H [facility] Protocol Lansoprazole 30 mg 09/08/20 10:00 09/16/20 10:01 Lansoprazole 30 Mg Solutab FEEDTUBE 30 mg QDAY BARBARA Administration Levetiracetam 750 mg 09/07/20 22:00 09/16/20 10:02 Levetiracetam 500 Mg/5 Ml Oral Liqd FEEDTUBE 750 mg BID BARBARA Administration Levothyroxine Sodium 50 mcg 09/08/20 06:00 09/16/20 06:27 Levothyroxine 50 Mcg Tab FEEDTUBE 50 mcg DAILY@0600 BARBARA Administration Lisinopril 20 mg 09/14/20 10:00 09/16/20 10:02 Lisinopril 20 Mg Tab PO 20 mg QDAY BARBARA Administration Ondansetron HCl 4 mg 09/07/20 19:17 Ondansetron 4 Mg/2 Ml Inj IV Q8H PRN Nausea Potassium Chloride 40 meq 09/16/20 09:00 09/16/20 10:03 Potassium Chloride 20 Meq Packet FEEDTUBE 09/16/20 12:00 40 meq ONCE@0900 NR Administration Simple Syrup 15 ml 09/06/20 19:27 09/11/20 23:38 Simple Syrup 15 Ml FEEDTUBE 15 ml PRN PRN Administration Hypoglycemia Simple Syrup 30 ml 09/06/20 19:27 Simple Syrup 15 Ml FEEDTUBE PRN PRN Hypoglycemia Sodium Bicarbonate 325 mg 09/06/20 19:27 Sodium Bicarbonate 325 Mg Tab FEEDTUBE PRN PRN For Clogged Feeding Tube Nutrition/Malnutrition Assess - Dietary Evaluation Nutrition/Malnutrition Findings: Nutrition Notes Start: 08/23/20 10:57 Freq: Status: Active Protocol: Document 09/14/20 10:41 EN (Rec: 09/14/20 10:47 EN [id number]) Co-Sign 09/14/20 10:41 MK Nutrition Notes Initial or Follow up Reassessment Current Diagnosis Acute Kidney Injury,Diabetes, Sepsis Other Pertinent Diagnosis Encephalopathy, COVID-19 (+), GIB, UTI, gastric ulcer, gastritis, AMS Current Diet Jevity 1.2 at 50ml/hr Labs/Tests Reviewed Pertinent Medications Lantus Folic Acid Vitamin B 12 Height 5 ft 5 in Weight 81.4 kg [place] Body Weight (kg) 56.81 BMI 29.8 Weight Status Appropriate Subjective/Other Information F/u for TF tolerance and BG control. BG is slightly improved and TF infusing at goal rate. RN reports pt tolerating TF well with no concerns. Percent of energy/protein needs met: 94%/83% Burn Absent Trauma Absent GI Symptoms None Current % PO Negligible Minimum of two criteria No Fluid Accumulation Mild (non-severe) #2 Nutrition Diagnosis Increased nutrient needs ( specify in comment below) Diagnosis Progress(for reassessment Continues documentation) #1 Nutrition Diagnosis Inadequate oral intake Diagnosis Progress(for reassessment Continues documentation) Is patient on ventilator? No Is Patient Ambulatory and/or Out of Bed No REE-(Rhea-St. Jeor-confined to bed) [phone] Calculation Used for Recommendations Rhea-St Jeor Additional Notes Protein: 81-97 g 1-1.2 g/kg) Fluid needs 1ml/kcal Nutrition Intervention Change Diet Order: Continue TF Nutrition Support: Jevity 1.2 at 50ml/hr Flush with 100ml q4h Kcal 1,440 Protein (gm) 67 Fluid (mL) 968 Goal #1 Meet at least 80% of kcal and protein needs Anticipated Discharge Needs: TF Follow-Up By: 09/20/20 Additional Comments F/u for TF tolerance and BG labs <FUNMILAYO MALDONADO - Last Filed: 09/17/20 07:13> Assessment and Plan Assessment and plan: I agree with history, examination and assessment and plan as written by Scar Carr ADAPTIVE PHYSICAL EDUCATION SPECIALIST. 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 Plan to discharge when supplies available hopefully on 09/19/2020 Hospitalist Physical - Constitutional Vitals: Temp Pulse Resp BP Pulse Ox 97.1 F L 73 18 147/68 100 09/17/20 05:39 09/17/20 05:39 09/17/20 05:39 09/17/20 05:39 09/17/20 05:39 HEART Score - HEART Score Troponin: Troponin T 0.075 ng/mL (0.00-0.029) H 08/18/20 18:25 Results - Labs CBC & Chem 7: 09/16/20 05:07 09/17/20 05:13 Labs: Laboratory Last Values WBC 7.8 K/mm3 (4.5-11.0) 09/16/20 05:07 RBC 2.95 M/mm3 (3.65-5.03) L 09/16/20 05:07 Hgb 8.7 gm/dl (10.1-14.3) L 09/16/20 05:07 Hct 25.7 % (30.3-42.9) L 09/16/20 05:07 MCV 87 fl (79-97) 09/16/20 05:07 MCH 29 pg (28-32) 09/16/20 05:07 MCHC 34 % (30-34) 09/16/20 05:07 RDW 16.0 % (13.2-15.2) H 09/16/20 05:07 Plt Count 280 K/mm3 (140-440) 09/16/20 05:07 Lymph % (Auto) 14.6 % (13.4-35.0) 09/11/20 05:44 [place] % (Auto) 6.1 % (0.0-7.3) 09/11/20 05:44 Eos % (Auto) 0.8 % (0.0-4.3) 09/11/20 05:44 Baso % (Auto) 0.2 % (0.0-1.8) 09/11/20 05:44 Lymph # (Auto) 1.0 K/mm3 (1.2-5.4) L 09/11/20 05:44 [place] # (Auto) 0.4 K/mm3 (0.0-0.8) 09/11/20 05:44 Eos # (Auto) 0.1 K/mm3 (0.0-0.4) 09/11/20 05:44 Baso # (Auto) 0.0 K/mm3 (0.0-0.1) 09/11/20 05:44 Add Manual Diff Complete 08/31/20 06:20 Total Counted 100 08/31/20 06:20 Seg Neutrophils % 78.3 % (40.0-70.0) H 09/11/20 05:44 Seg Neuts % (Manual) 87.0 % (40.0-70.0) H 08/31/20 06:20 Band Neutrophils % 1.0 % 08/31/20 06:20 Lymphocytes % (Manual) 5.0 % (13.4-35.0) L 08/31/20 06:20 Reactive Lymphs % (Man) 1.0 % 08/28/20 10:07 Monocytes % (Manual) 5.0 % (0.0-7.3) 08/31/20 06:20 Metamyelocytes % 2.0 % 08/31/20 06:20 Nucleated RBC % Not Reportable 08/31/20 06:20 Seg Neutrophils # 5.2 K/mm3 (1.8-7.7) 09/11/20 05:44 Seg Neutrophils # Man 15.1 K/mm3 (1.8-7.7) H 08/31/20 06:20 Band Neutrophils # 0.2 K/mm3 08/31/20 06:20 Lymphocytes # (Manual) 0.9 K/mm3 (1.2-5.4) L 08/31/20 06:20 Abs React Lymphs (Man) 0.0 K/mm3 08/31/20 06:20 Monocytes # (Manual) 0.9 K/mm3 (0.0-0.8) H 08/31/20 06:20 Eosinophils # (Manual) 0.0 K/mm3 (0.0-0.4) 08/31/20 06:20 Basophils # (Manual) 0.0 K/mm3 (0.0-0.1) 08/31/20 06:20 Metamyelocytes # 0.3 K/mm3 08/31/20 06:20 Myelocytes # 0.0 K/mm3 08/31/20 06:20 Promyelocytes # 0.0 K/mm3 08/31/20 06:20 Blast Cells # 0.0 K/mm3 08/31/20 06:20 WBC Morphology Not Reportable 08/31/20 06:20 Hypersegmented Neuts Not Reportable 08/31/20 06:20 Hyposegmented Neuts Not Reportable 08/31/20 06:20 Hypogranular Neuts Not Reportable 08/31/20 06:20 Smudge Cells Not Reportable 08/31/20 06:20 Toxic Granulation Not Reportable 08/31/20 06:20 Toxic Vacuolation Not Reportable 08/31/20 06:20 Dohle Bodies Not Reportable 08/31/20 06:20 Pelger-Huet Anomaly Not Reportable 08/31/20 06:20 Marie Rods Not Reportable 08/31/20 06:20 Platelet Estimate Consistent w auto 08/31/20 06:20 Clumped Platelets Not Reportable 08/31/20 06:20 Plt Clumps, EDTA Not Reportable 08/31/20 06:20 Large Platelets Not Reportable 08/31/20 06:20 Giant Platelets Not Reportable 08/31/20 06:20 Platelet Satelliting Not Reportable 08/31/20 06:20 Plt Morphology Comment Not Reportable 08/31/20 06:20 RBC Morphology Not Reportable 08/31/20 06:20 Dimorphic RBCs Not Reportable 08/31/20 06:20 Polychromasia Not Reportable 08/31/20 06:20 Hypochromasia Not Reportable 08/31/20 06:20 Poikilocytosis Not Reportable 08/31/20 06:20 Anisocytosis 1+ 08/31/20 06:20 Microcytosis Not Reportable 08/31/20 06:20 Macrocytosis Not Reportable 08/31/20 06:20 Spherocytes Not Reportable 08/31/20 06:20 Pappenheimer Bodies Not Reportable 08/31/20 06:20 Sickle Cells Not Reportable 08/31/20 06:20 Target Cells Not Reportable 08/31/20 06:20 Tear Drop Cells Not Reportable 08/31/20 06:20 Ovalocytes Not Reportable 08/31/20 06:20 Helmet Cells Not Reportable 08/31/20 06:20 [place] Bodies Not Reportable 08/31/20 06:20 [place] Rings Not Reportable 08/31/20 06:20 [place] Cells Not Reportable 08/31/20 06:20 Bite Cells Not Reportable 08/31/20 06:20 Crenated Cell Not Reportable 08/31/20 06:20 Elliptocytes Not Reportable 08/31/20 06:20 Acanthocytes (Spur) Not Reportable 08/31/20 06:20 Rouleaux Not Reportable 08/31/20 06:20 Hemoglobin C Crystals Not Reportable 08/31/20 06:20 Schistocytes Not Reportable 08/31/20 06:20 Malaria parasites Not Reportable 08/31/20 06:20 [place] Bodies Not Reportable 08/31/20 06:20 Hem Pathologist Commnt No 08/31/20 06:20 PT 15.7 Sec. (12.2-14.9) H 09/09/20 09:44 INR 1.25 (0.87-1.13) H 09/09/20 09:44 APTT 45.2 Sec. (24.2-36.6) H 09/09/20 09:44 D-Dimer 2409.74 ng/mlDDU (0-234) H 08/18/20 Unknown Sodium 139 mmol/L (137-145) 09/17/20 05:13 Potassium 3.5 mmol/L (3.6-5.0) L 09/17/20 05:13 Chloride 103.0 mmol/L (98-107) 09/17/20 05:13 Carbon Dioxide 30 mmol/L (22-30) 09/17/20 05:13 Anion Gap 10 mmol/L 09/17/20 05:13 BUN 13 mg/dL (7-17) 09/17/20 05:13 Creatinine 0.3 mg/dL (0.6-1.2) L 09/17/20 05:13 Estimated GFR > 60 ml/min 09/17/20 05:13 BUN/Creatinine Ratio 43 % 09/17/20 05:13 Glucose 148 mg/dL (65-100) H 09/17/20 05:13 POC Glucose 118 mg/dL (70-105) H 09/16/20 21:42 Lactic Acid 1.00 mmol/L (0.7-2.0) 08/18/20 18:25 Calcium 7.7 mg/dL (8.4-10.2) L 09/17/20 05:13 Phosphorus 5.50 mg/dL (2.5-4.5) H 09/08/20 04:52 Magnesium 2.10 mg/dL (1.7-2.3) 09/08/20 04:52 Ferritin 1950.0 ng/mL (10.0-200.0) H 08/18/20 15:35 Total Bilirubin 0.50 mg/dL (0.1-1.2) 09/04/20 05:57 AST 11 units/L (5-40) 09/04/20 05:57 ALT 8 units/L (7-56) 09/04/20 05:57 Alkaline Phosphatase 59 units/L (35-129) 09/04/20 05:57 Ammonia 32.0 umol/L (25-60) 08/25/20 09:06 Lactate Dehydrogenase 228 units/L (91-180) H 08/18/20 15:35 Total Creatine Kinase 164 units/L (30-135) H 08/22/20 19:44 Troponin T 0.075 ng/mL (0.00-0.029) H 08/18/20 18:25 C-Reactive Protein 35.60 mg/dL (0.00-1.30) H 08/18/20 15:35 Total Protein 4.2 g/dL (6.3-8.2) L 09/04/20 05:57 Albumin 2.5 g/dL (3.9-5) L 09/04/20 05:57 Albumin/Globulin Ratio 1.5 % 09/04/20 05:57 Triglycerides 70 mg/dL (2-149) 08/31/20 06:20 Cholesterol 79 mg/dL (50-199) 08/18/20 18:25 LDL Cholesterol Direct 42 mg/dL (50-130) L 08/18/20 18:25 HDL Cholesterol 23 mg/dL (40-59) L 08/18/20 18:25 Cholesterol/HDL Ratio 3.43 % 08/18/20 18:25 Vitamin B12 721.0 pg/mL (211-911) 08/25/20 09:06 Folate 8.34 ng/mL (7.3-26.0) 08/25/20 09:06 Procalcitonin 4.00 ng/mL (<0.15) 08/18/20 15:35 TSH 0.056 mlU/mL (0.270-4.200) L 08/24/20 17:02 Free T4 1.59 ng/dL (0.76-1.46) H 08/26/20 10:22 Free T3 Index 1.2 pg/mL (2.3-4.2) L 08/26/20 10:22 Total Cortisol 37.6 mcg/dL () 09/02/20 05:30 Urine Color Yellow (Yellow) 09/08/20 06:14 Urine Turbidity Turbid (Clear) 09/08/20 06:14 Urine pH 5.0 (5.0-7.0) 09/08/20 06:14 Ur Specific [place] 1.009 (1.003-1.030) 09/08/20 06:14 Urine Protein 100 mg/dl mg/dL (Negative) 09/08/20 06:14 Urine Glucose (UA) Neg mg/dL (Negative) 09/08/20 06:14 Urine Ketones Neg mg/dL (Negative) 09/08/20 06:14 Urine Blood Lg (Negative) 09/08/20 06:14 Urine Nitrite Neg (Negative) 09/08/20 06:14 Urine Bilirubin Neg (Negative) 09/08/20 06:14 Urine Urobilinogen < 2.0 mg/dL (<2.0) 09/08/20 06:14 Ur Leukocyte Esterase Mod (Negative) 09/08/20 06:14 Urine WBC (Auto) > 182.0 /HPF (0.0-6.0) H 09/08/20 06:14 Urine RBC (Auto) > 182.0 /HPF (0.0-6.0) 09/08/20 06:14 U Epithel Cells (Auto) 1.0 /HPF (0-13.0) 08/18/20 Unknown Urine Bacteria (Auto) 4+ /HPF (Negative) 09/08/20 06:14 Urine WBC Clumps 3+ /HPF 09/08/20 06:14 Urine Mucus 1+ /HPF 09/08/20 06:14 Ur Yeast w Hyphae 2+ /HPF 09/08/20 06:14 Urine Yeast (Budding) 2+ /HPF 09/08/20 06:14 CSF Appearance Clear 09/13/20 Unknown CSF Color Colorless 09/13/20 Unknown CSF WBC 2 /mm3 (1-10) 09/13/20 Unknown CSF RBC 2 /mm3 (0-0) 09/13/20 Unknown CSF Seg Neutrophils 0 % (0-6) 09/13/20 Unknown CSF Lymphocytes % 1 % (40-80) 09/13/20 Unknown CSF Reactive Lymphs 0 % 09/13/20 Unknown CSF Monocytes % 0 % (15-45) 09/13/20 Unknown CSF Eosinophils % 0 % 09/13/20 Unknown CSF Basophils 0 % 09/13/20 Unknown CSF Pathologist Review C 09/13/20 Unknown CSF Glucose 53 mg/dL 09/13/20 Unknown CSF Total Protein 49 mg/dL 09/13/20 Unknown CSF VDRL Nonreactive (Nonreactive) 09/13/20 Unknown Random Vancomycin 9.8 ug/mL (0-40.0) 08/19/20 19:02 Coronavirus (PCR) Positive (Negative) A 09/04/20 10:27 Blood Type O POSITIVE 08/27/20 20:44 Antibody Screen Negative 08/27/20 20:44 Crossmatch See Detail 08/27/20 20:44 Microbiology: Microbiology 09/13/20 Unknown Cerebral Spinal Fluid CSF Culture - Final [place]/IV: Voiding Method Indwelling Catheter IV Catheter Type [Right INT / Saline Lock Forearm] IV Catheter Type [Left Forearm INT / Saline Lock ] IV Catheter Type [Left Hand] INT / Saline Lock IV Catheter Type [Left Triple Lumen Cath Internal Jugular] IV Catheter Type [Left] CVL Active Medications - Current Medications Current Medications: Generic Name Dose Route Start Last Admin Trade Name Freq PRN Reason Stop Dose Admin Acetaminophen 650 mg 09/07/20 19:17 09/07/20 22:50 Acetaminophen 325 Mg/10.15 Ml Oral Liqd Unit Dose FEEDTUBE 650 mg Q6H PRN Administration Pain, Mild (1-3) Amlodipine Besylate 5 mg 09/12/20 10:00 09/16/20 10:03 Amlodipine 5 Mg Tab PO 5 mg DAILY BARBARA Administration Lipase/Protease/Amylase 1 each 09/06/20 19:27 Lipase 10,500/Protease 25,000/Amylase 43,750 (Units) Dr Fernandez FEEDTUBE PRN PRN For Clogged Feeding Tube Atorvastatin Calcium 20 mg 09/12/20 22:00 09/16/20 21:03 Atorvastatin 20 Mg Tab PO 20 mg QHS BARBARA Administration Atropine Sulfate 1 mg 08/23/20 16:56 Atropine 1 Mg/Ml Vial IV PRN PRN Bradycardia Clonidine HCl 0.2 mg 08/31/20 22:00 09/14/20 23:12 Clonidine Tts 0.2 Mg/24 Hr Patch TD 0.2 mg We BARBARA Administration Cyanocobalamin 1,000 mcg 09/12/20 10:00 09/16/20 10:02 Cyanocobalamin (Vit B-12) 1000 Mcg Tab PO 1,000 mcg DAILY BARBARA Administration Folic Acid 1 mg 09/12/20 10:00 09/16/20 10:02 Folic Acid 1 Mg Tab PO 1 mg DAILY BARBARA Administration Hydralazine HCl 5 mg 08/31/20 21:22 09/06/20 23:43 Hydralazine 20 Mg/1 Ml Inj IV 5 mg Q4H PRN Administration Blood Pressure Hydrocortisone Acetate 10 mg 09/07/20 22:00 09/16/20 21:02 Hydrocortisone 10 Mg Tab FEEDTUBE 10 mg Q12HR BARBARA Administration Insulin Glargine 5 units 09/03/20 22:00 09/16/20 22:17 Insulin Glargine 100 Units/Ml SUB-Q Not Given BID [facility] Insulin Human Lispro 0 unit 09/07/20 12:00 09/17/20 06:20 Insulin Lispro 100 Unit/Ml Vial 3 Ml SUB-Q Not Given Q6H [facility] Protocol Lansoprazole 30 mg 09/08/20 10:00 09/16/20 10:01 Lansoprazole 30 Mg Solutab FEEDTUBE 30 mg QDAY BARBARA Administration Levetiracetam 750 mg 09/07/20 22:00 09/16/20 21:02 Levetiracetam 500 Mg/5 Ml Oral Liqd FEEDTUBE 750 mg BID BARBARA Administration Levothyroxine Sodium 50 mcg 09/08/20 06:00 09/17/20 05:15 Levothyroxine 50 Mcg Tab FEEDTUBE 50 mcg DAILY@0600 BARBARA Administration Lisinopril 20 mg 09/14/20 10:00 09/16/20 10:02 Lisinopril 20 Mg Tab PO 20 mg QDAY BARBARA Administration Ondansetron HCl 4 mg 09/07/20 19:17 Ondansetron 4 Mg/2 Ml Inj IV Q8H PRN Nausea Potassium Chloride 40 meq 09/17/20 07:10 Potassium Chloride 20 Meq Packet FEEDTUBE 09/17/20 07:11 ONCE ONE Simple Syrup 15 ml 09/06/20 19:27 09/11/20 23:38 Simple Syrup 15 Ml FEEDTUBE 15 ml PRN PRN Administration Hypoglycemia Simple Syrup 30 ml 09/06/20 19:27 Simple Syrup 15 Ml FEEDTUBE PRN PRN Hypoglycemia Sodium Bicarbonate 325 mg 09/06/20 19:27 Sodium Bicarbonate 325 Mg Tab FEEDTUBE PRN PRN For Clogged Feeding Tube Nutrition/Malnutrition Assess - Dietary Evaluation Nutrition/Malnutrition Findings: Nutrition Notes Start: 08/23/20 10:57 Freq: Status: Active Protocol: Document 09/14/20 10:41 EN (Rec: 09/14/20 10:47 EN [id number]) Co-Sign 09/14/20 10:41 Nutrition Notes Initial or Follow up Reassessment Current Diagnosis Acute Kidney Injury,Diabetes, Sepsis Other Pertinent Diagnosis Encephalopathy, COVID-19 (+), GIB, UTI, gastric ulcer, gastritis, AMS Current Diet Jevity 1.2 at 50ml/hr Labs/Tests Reviewed Pertinent Medications Lantus Folic Acid Vitamin B 12 Height 5 ft 5 in Weight 81.4 kg [place] Body Weight (kg) 56.81 BMI 29.8 Weight Status Appropriate Subjective/Other Information F/u for TF tolerance and BG control. BG is slightly improved and TF infusing at goal rate. RN reports pt tolerating TF well with no concerns. Percent of energy/protein needs met: 94%/83% Burn Absent Trauma Absent GI Symptoms None Current % PO Negligible Minimum of two criteria No Fluid Accumulation Mild (non-severe) #2 Nutrition Diagnosis Increased nutrient needs ( specify in comment below) Diagnosis Progress(for reassessment Continues documentation) #1 Nutrition Diagnosis Inadequate oral intake Diagnosis Progress(for reassessment Continues documentation) Is patient on ventilator? No Is Patient Ambulatory and/or Out of Bed No REE-(Rhea-St. Jeor-confined to bed) 1536.744 Calculation Used for Recommendations Rhea-St Jeor Additional Notes Protein: 81-97 g 1-1.2 g/kg) Fluid needs 1ml/kcal Nutrition Intervention Change Diet Order: Continue TF Nutrition Support: Jevity 1.2 at 50ml/hr Flush with 100ml q4h Kcal 1,440 Protein (gm) 67 Fluid (mL) 968 Goal #1 Meet at least 80% of kcal and protein needs Anticipated Discharge Needs: TF Follow-Up By: 09/20/20 Additional Comments F/u for TF tolerance and BG labs
[2020-09-17] MEDS: INSULIN LISPRO 100 UNIT/ML VIAL 3 mL SUB-Q SCH ×4 (00:12→19:06)
[2020-09-17] MEDS: LEVOTHYROXINE 50 MCG TAB FEEDTUBE SCH (05:15)
[2020-09-17 06:08] LABS: Blood Urea Nitrogen 13 mg/dL (7-17); Calcium 7.7 mg/dL (8.4-10.2); Hemolysis Index 3
[2020-09-17 06:30] LABS: BUN/Creatinine Ratio 43
[2020-09-17] MEDS ORDERED: POTASSIUM CHLORIDE 20 MEQ PACKET FEEDTUBE ONE ×2 (07:10→12:00)
--- NOTE | 2020-09-17 08:39 | Progress Note ---
Assessment and Plan Assessment and plan: The patient is an 80-year-old woman with advanced dementia who lives in [place] [facility] [place], [place]'s disease, hypertension, vitamin D deficiency, seizure disorder, and hyperlipidemia who presents the emergency department for altered mental status. On presentation to the emergency room, her white count was markedly elevated at 20,000, low grade fever, PAWAN with BUN 55 and creatinine of 3.5 and elevated Mell as well as meningioma on CT head. Neurosurgery, cardiology, nephrology, heme-onc and infectious disease were consulted. 08/24/2020. Patient still mildly confused. However, I suspect patient has u nderlying Alzheimer's dementia and this is her baseline. I discussed plan of care and altered mentation with sister at [phone]. Patient will need DME of hospital bed and oxygen for discharge home. Await physical therapy recommendations. 08/25/2020. Patient still lethargic and confused. Patient receiving hydrocortisone 50 mg IV twice daily for adrenal insufficiency. Check B12, folate and ammonia levels. Neurology consultation pending. Continue supplemental oxygen to maintain sats greater than 92%. 08/26/2020. Encephalopathy likely secondary to toxic metabolic causes in the setting of leukocytosis, improving uremia, renal insufficiency, covid-19, underlying uti. Check CT head without contrast and EEG per neurology recommendations. However may need csf evaluation if brain imaging and eeg are unremarkable and pt continues to remain encephalopathic. Follow-up cortisol levels and T3-T4. 08/27/2020. Patient remains lethargic and confused. Encephalopathy is persistent and likely secondary to toxic metabolic causes from sepsis, renal insufficiency/uremia, COVID-[address] scan of the head found to be negative. Await EEG. Consider CSF evaluation if EEG unremarkable. Consult GI for further evaluation of hematochezia/GI bleed. Continue Protonix 40 mg IV twice daily. Transfuse for hemoglobin less than 7. Continue to monitor serial CBC. Lovenox discontinued which was empirically started for elevated D-dimer. 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 Decrease IV hydrocortisone. Follow-up cortisol levels and T3-T4. I updated the sister and family at [phone]. 08/28/2020. Follow-up EEG per neurology. GI reports if signs of hemodynamic changes, we will proceed with stat bleeding scan. Hemoglobin has dropped to 6. 8. Type and cross and transfuse 2 units. Continue to hold anticoagulation. Continue Protonix 40 mg IV twice daily. Nursing reports inability to place NG tube. Place PICC line and start TPN. Dietitian consulted. ? NG tube placement under fluoroscopy. Patient may need PEG tube placement. 08/29/2020. Patient is s/p 3 units PRBCs. Hemoglobin has stabilized to 11.5. Continue to trend and follow serial H/H. Patient remains hemodynamically stable. If patient has a change, we will proceed with stat bleeding scan. GI following. Continue Protonix 40 mg IV twice daily. Continue to hold an ticoagulation. Nursing reports inability to place NG tube. PICC line placed to initiate TPN. Dietitian consulted. ? NG tube placement under fluoroscopy. Patient may need PEG tube placement. 08/30/2020. Hemoglobin remained stable. Patient is on TPN and will not be discharged on TPN. NG tube could not be placed as per RN.. Awaiting EEG to rule out any seizures. If no etiology found, patient will benefit from a PEG placement as she has advanced dementia. Continue to hold anticoagulation due to recent GI bleed. GI to reevaluate for PEG placement. 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 Not clear if this is baseline. Need to retrieve her records from previous hospitalization. Neurosurgery consulted for evaluation. 09/01/2020. She is remains confused. Neurology evaluation appreciated. No intervention for brain mass. She is on hydrocortisone for hypopituitary function. Will adjust based on cortisol levels. She will need to have PEG place ment for feeds ultimately as she will not be on TPN for a long time. Will reconsult GI for NG tube placement. 09/02. Plan for PEG placement today. She is awake and alert to person only. Vitals stable. 09/03. Had EGD which showed gastritis. Patient will need to have a PEG placement by other means-IR or surgery as per GI. Now on PPI twice daily. Biopsy from gastric ulcer sent. She remains on TPN. Plan to discuss PEG placement IR or surgery. Plan for LP as well. 09/04. Surgery has been consulted for PEG placement. COVID-19 test sent. She remains on TPN. LP still pending 09/05. Patient is awake today but confused. COVID-19 test remains positive. Patients PEG placement may be held for now as per surgery continue Covid infection resolved. She remains on TPN. LP still pending. 09/06. Patient remains confused. COVID-19 test remains positive. Patients PEG placement may be held for now as per surgery continue Covid infection resolved. She remains on TPN. LP still pending. 09/07. Surgery completed laparoscopic-assisted PEG tube placement. Advance tube feeding per dietitian/life science technician recommendations. Patient has had optimal rate control without use of significant AV yoan blocking therapy which suggests underlying conduction system disease per cardiology. Cardiology does not recommend further use of long-term anticoagulation in the setting of recent GI bleed, anemia, AMS and age. I will call the sister to update her regarding care but no answer. Message left. 09/08. Patient tolerating PEG tube feedings. Awaiting LP. Patient remains confused. Continue hydrocortisone for hypopituitary function. Will discuss with neurology further plans . 09/09. Plans for LP to assess confusion. Continue hydrocortisone for hypopituitary function. Will discuss with neurology further plans . 09/10. Continue hydrocortisone 10 mg daily. Keppra 750 mg daily. Patient tolerating tube feedings. Discussed with neurology further plans regarding encephalopathy. 09/11. Patient much more verbal this morning. Patient appears to be potentially back to baseline. We will discuss with family. Patient remains in sinus rhythm. No long-term anticoagulation given recent GI bleed, gastric ulcer, anemia and advanced dementia. Continue to monitor H&H and transfuse for hem oglobin less than 7. Continue PPI. 09/12: Continuously removes her supplemental oxygenation and places it on her forehead. Her SPO2 is in the high 90s on room air therefore RN was instructed to decrease oxygenation off. This morning RN was instructed to remove CVL as it is somewhat pulled back and to obtain a peripheral IV. Patient will have her lumbar puncture done today. 09/13: Patient is scheduled for lumbar puncture today. Patient remains on room air no acute events reported overnight. Her CVL has been removed. 09/14: Her viral panel and culture are pending in her CSF analysis. CM is to speak with family regarding discharge as they originally wanted the patient to be discharged home. No acute events reported overnight. 09/15: No acute events reported overnight. This morning we attempted to remove her Montalvo catheter however the patient exhibited urinary retention and the Montalvo catheter was replaced. We anticipate discharge tomorrow if all hospital equipment is provided at home. 09/16: Hypokalemia, repleated. AM BMP, Family updated by Dr. Blood and family requests delay in discharge till all DME arrives and a COVID 19 PCR. Patient is more talkative today but she does not make sense. 09/17. Patient awake- no complaints. Labs reviewed. DC planning underway - possible DC on Saturday. Will need home supplies prior to DC. 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 Sepsis -Patient presented with tachycardia, hypotension, tachypnea, leukocytosis, febrile, acute kidney injury, urinary tract infection -Patient found to have urinary tract infection 11 by urinary analysis -08/18 blood cultures x2 no growth to date -08/18 urine culture no growth to date -Infectious disease consulted,appreciate recommendations -S/p antibiotic therapy Acute toxic metabolic encephalopathy -Possibly secondary to infection versus PAWAN -Patient has baseline dementia -Supportive care -Aspiration/fall precautions -LP pending Extensive skull base meningioma -Noted on CT head -Neurosurgery consulted, appreciate recommendations -No acute intervention indicated at this time per neurosurgery Gastric ulcer, acute -Noted on endoscopy -No active bleeding -Supportive care -PPI Urinary retention, acute -Montalvo catheter had to be placed during hospital stay for urinary retention -09/15 attempted to remove Montalvo catheter however patient still exhibited retention the Montalvo was replaced -Patient will be discharged with Montalvo catheter in place -We will need to follow-up with urology outpatient within 1 to 2 weeks of discharge Elevated D-dimer, acute -D-dimer noted to be 2409.7 and thus empirically started on therapeutic dose anticoagulation. 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 -09/16 repeat COVID ordered at family request Urinary tract infection, resolved -08/18/2020 urinalysis shows trace leukocyte Estrace and pyuria -08/18 urine culture negative -S/p antibiotic therapy Acute kidney injury, resolved -S/p MIVF -Presented with creatinine/BUN of 3.5/55 -Patient's creatinine has trended down to 0.3 and BUN 17 -Avoid nephrotoxic medications -Renally dose medications -Strict urine output -Secondary to vasomotor nephropathy Leukocytosis, resolved -Admit WBC 20.3 -S/p antibiotic therapy -Trend CBC -09/11 WBC 6.6 -Patient is on chronic steroid therapy for Mehran's disease Hypernatremia, resolved -Presented with a sodium of 146 which trended down but then trended back up to 150 and is now 146 -Trend BMP -Free water flush -09/12 Na 143 Hyperchloremia, resolved -Patient's chloride trended up to 119.3 -09/12 chloride 110 -Trend BMP -Free water flush -09/14 Cl 105.6 Acute hypoxic respiratory failure, resolved -Supplemental oxygen as needed -Pulmonary hygiene -SPO2 monitoring GI bleed/hematochezia, resolved -Endoscopic evaluation revealed gastric ulcer. No active bleeding -Supportive care -PPI -S/p PEG tube on tube feedings History Interval history: No acute events noted overnight. Hospitalist Physical - Physical exam Narrative exam: VITAL SIGNS: Reviewed. GENERAL: Awake HEAD: No signs of head trauma. EYES: Pupils are equal. Extraocular motions intact. MOUTH: Oropharynx is normal. NECK: No adenopathy, no JVD. CHEST: Chest with diminished breath sounds bilaterally. No wheezes, rales, or rhonchi. CARDIAC: normal S1 and S2, without murmurs, gallops, or rubs. ABDOMEN: Soft, non tender and non distended. No rebound or guarding, and no masses palpated. Bowel Sounds normal. PEG in place MUSCULOSKELETAL: No edema NEUROLOGIC EXAM: Awake SKIN: No obvious lesions - Constitutional Vitals: Temp Pulse Resp BP Pulse Ox 97.1 F L 73 18 147/68 100 09/17/20 05:39 09/17/20 05:39 09/17/20 05:39 09/17/20 05:39 09/17/20 05:39 HEART Score - HEART Score Troponin: Troponin T 0.075 ng/mL (0.00-0.029) H 08/18/20 18:25 Troponin: 1-3x normal limit - Critical Actions Critical Actions: 4-6 pts:12-16.6% risk of adverse cardiac event. Should be admitted Results - Labs CBC & Chem 7: 09/16/20 05:07 09/17/20 05:13 Labs: Laboratory Last Values WBC 7.8 K/mm3 (4.5-11.0) 09/16/20 05:07 RBC 2.95 M/mm3 (3.65-5.03) L 09/16/20 05:07 Hgb 8.7 gm/dl (10.1-14.3) L 09/16/20 05:07 Hct 25.7 % (30.3-42.9) L 09/16/20 05:07 MCV 87 fl (79-97) 09/16/20 05:07 MCH 29 pg (28-32) 09/16/20 05:07 MCHC 34 % (30-34) 09/16/20 05:07 RDW 16.0 % (13.2-15.2) H 09/16/20 05:07 Plt Count 280 K/mm3 (140-440) 09/16/20 05:07 Lymph % (Auto) 14.6 % (13.4-35.0) 09/11/20 05:44 [place] % (Auto) 6.1 % (0.0-7.3) 09/11/20 05:44 Eos % (Auto) 0.8 % (0.0-4.3) 09/11/20 05:44 Baso % (Auto) 0.2 % (0.0-1.8) 09/11/20 05:44 Lymph # (Auto) 1.0 K/mm3 (1.2-5.4) L 09/11/20 05:44 [place] # (Auto) 0.4 K/mm3 (0.0-0.8) 09/11/20 05:44 Eos # (Auto) 0.1 K/mm3 (0.0-0.4) 09/11/20 05:44 Baso # (Auto) 0.0 K/mm3 (0.0-0.1) 09/11/20 05:44 Add Manual Diff Complete 08/31/20 06:20 Total Counted 100 08/31/20 06:20 Seg Neutrophils % 78.3 % (40.0-70.0) H 09/11/20 05:44 Seg Neuts % (Manual) 87.0 % (40.0-70.0) H 08/31/20 06:20 Band Neutrophils % 1.0 % 08/31/20 06:20 Lymphocytes % (Manual) 5.0 % (13.4-35.0) L 08/31/20 06:20 Reactive Lymphs % (Man) 1.0 % 08/28/20 10:07 Monocytes % (Manual) 5.0 % (0.0-7.3) 08/31/20 06:20 Metamyelocytes % 2.0 % 08/31/20 06:20 Nucleated RBC % Not Reportable 08/31/20 06:20 Seg Neutrophils # 5.2 K/mm3 (1.8-7.7) 09/11/20 05:44 Seg Neutrophils # Man 15.1 K/mm3 (1.8-7.7) H 08/31/20 06:20 Band Neutrophils # 0.2 K/mm3 08/31/20 06:20 Lymphocytes # (Manual) 0.9 K/mm3 (1.2-5.4) L 08/31/20 06:20 Abs React Lymphs (Man) 0.0 K/mm3 08/31/20 06:20 Monocytes # (Manual) 0.9 K/mm3 (0.0-0.8) H 08/31/20 06:20 Eosinophils # (Manual) 0.0 K/mm3 (0.0-0.4) 08/31/20 06:20 Basophils # (Manual) 0.0 K/mm3 (0.0-0.1) 08/31/20 06:20 Metamyelocytes # 0.3 K/mm3 08/31/20 06:20 Myelocytes # 0.0 K/mm3 08/31/20 06:20 Promyelocytes # 0.0 K/mm3 08/31/20 06:20 Blast Cells # 0.0 K/mm3 08/31/20 06:20 WBC Morphology Not Reportable 08/31/20 06:20 Hypersegmented Neuts Not Reportable 08/31/20 06:20 Hyposegmented Neuts Not Reportable 08/31/20 06:20 Hypogranular Neuts Not Reportable 08/31/20 06:20 Smudge Cells Not Reportable 08/31/20 06:20 Toxic Granulation Not Reportable 08/31/20 06:20 Toxic Vacuolation Not Reportable 08/31/20 06:20 Dohle Bodies Not Reportable 08/31/20 06:20 Pelger-Huet Anomaly Not Reportable 08/31/20 06:20 Marie Rods Not Reportable 08/31/20 06:20 Platelet Estimate Consistent w auto 08/31/20 06:20 Clumped Platelets Not Reportable 08/31/20 06:20 Plt Clumps, EDTA Not Reportable 08/31/20 06:20 Large Platelets Not Reportable 08/31/20 06:20 Giant Platelets Not Reportable 08/31/20 06:20 Platelet Satelliting Not Reportable 08/31/20 06:20 Plt Morphology Comment Not Reportable 08/31/20 06:20 RBC Morphology Not Reportable 08/31/20 06:20 Dimorphic RBCs Not Reportable 08/31/20 06:20 Polychromasia Not Reportable 08/31/20 06:20 Hypochromasia Not Reportable 08/31/20 06:20 Poikilocytosis Not Reportable 08/31/20 06:20 Anisocytosis 1+ 08/31/20 06:20 Microcytosis Not Reportable 08/31/20 06:20 Macrocytosis Not Reportable 08/31/20 06:20 Spherocytes Not Reportable 08/31/20 06:20 Pappenheimer Bodies Not Reportable 08/31/20 06:20 Sickle Cells Not Reportable 08/31/20 06:20 Target Cells Not Reportable 08/31/20 06:20 Tear Drop Cells Not Reportable 08/31/20 06:20 Ovalocytes Not Reportable 08/31/20 06:20 Helmet Cells Not Reportable 08/31/20 06:20 [place] Bodies Not Reportable 08/31/20 06:20 [place] Rings Not Reportable 08/31/20 06:20 Darren Cells Not Reportable 08/31/20 06:20 Bite Cells Not Reportable 08/31/20 06:20 Crenated Cell Not Reportable 08/31/20 06:20 Elliptocytes Not Reportable 08/31/20 06:20 Acanthocytes (Spur) Not Reportable 08/31/20 06:20 Rouleaux Not Reportable 08/31/20 06:20 Hemoglobin C Crystals Not Reportable 08/31/20 06:20 Schistocytes Not Reportable 08/31/20 06:20 Malaria parasites Not Reportable 08/31/20 06:20 [place] Bodies Not Reportable 08/31/20 06:20 Hem Pathologist Commnt No 08/31/20 06:20 PT 15.7 Sec. (12.2-14.9) H 09/09/20 09:44 INR 1.25 (0.87-1.13) H 09/09/20 09:44 APTT 45.2 Sec. (24.2-36.6) H 09/09/20 09:44 D-Dimer 2409.74 ng/mlDDU (0-234) H 08/18/20 Unknown Sodium 139 mmol/L (137-145) 09/17/20 05:13 Potassium 3.5 mmol/L (3.6-5.0) L 09/17/20 05:13 Chloride 103.0 mmol/L (98-107) 09/17/20 05:13 Carbon Dioxide 30 mmol/L (22-30) 09/17/20 05:13 Anion Gap 10 mmol/L 09/17/20 05:13 BUN 13 mg/dL (7-17) 09/17/20 05:13 Creatinine 0.3 mg/dL (0.6-1.2) L 09/17/20 05:13 Estimated GFR > 60 ml/min 09/17/20 05:13 BUN/Creatinine Ratio 43 % 09/17/20 05:13 Glucose 148 mg/dL (65-100) H 09/17/20 05:13 POC Glucose 118 mg/dL (70-105) H 09/16/20 21:42 Lactic Acid 1.00 mmol/L (0.7-2.0) 08/18/20 18:25 Calcium 7.7 mg/dL (8.4-10.2) L 09/17/20 05:13 Phosphorus 5.50 mg/dL (2.5-4.5) H 09/08/20 04:52 Magnesium 2.10 mg/dL (1.7-2.3) 09/08/20 04:52 Ferritin 1950.0 ng/mL (10.0-200.0) H 08/18/20 15:35 Total Bilirubin 0.50 mg/dL (0.1-1.2) 09/04/20 05:57 AST 11 units/L (5-40) 09/04/20 05:57 ALT 8 units/L (7-56) 09/04/20 05:57 Alkaline Phosphatase 59 units/L (35-129) 09/04/20 05:57 Ammonia 32.0 umol/L (25-60) 08/25/20 09:06 Lactate Dehydrogenase 228 units/L (91-180) H 08/18/20 15:35 Total Creatine Kinase 164 units/L (30-135) H 08/22/20 19:44 Troponin T 0.075 ng/mL (0.00-0.029) H 08/18/20 18:25 C-Reactive Protein 35.60 mg/dL (0.00-1.30) H 08/18/20 15:35 Total Protein 4.2 g/dL (6.3-8.2) L 09/04/20 05:57 Albumin 2.5 g/dL (3.9-5) L 09/04/20 05:57 Albumin/Globulin Ratio 1.5 % 09/04/20 05:57 Triglycerides 70 mg/dL (2-149) 08/31/20 06:20 Cholesterol 79 mg/dL (50-199) 08/18/20 18:25 LDL Cholesterol Direct 42 mg/dL (50-130) L 08/18/20 18:25 HDL Cholesterol 23 mg/dL (40-59) L 08/18/20 18:25 Cholesterol/HDL Ratio 3.43 % 08/18/20 18:25 Vitamin B12 721.0 pg/mL (211-911) 08/25/20 09:06 Folate 8.34 ng/mL (7.3-26.0) 08/25/20 09:06 Procalcitonin 4.00 ng/mL (<0.15) 08/18/20 15:35 TSH 0.056 mlU/mL (0.270-4.200) L 08/24/20 17:02 Free T4 1.59 ng/dL (0.76-1.46) H 08/26/20 10:22 Free T3 Index 1.2 pg/mL (2.3-4.2) L 08/26/20 10:22 Total Cortisol 37.6 mcg/dL () 09/02/20 05:30 Urine Color Yellow (Yellow) 09/08/20 06:14 Urine Turbidity Turbid (Clear) 09/08/20 06:14 Urine pH 5.0 (5.0-7.0) 09/08/20 06:14 Ur Specific [place] 1.009 (1.003-1.030) 09/08/20 06:14 Urine Protein 100 mg/dl mg/dL (Negative) 09/08/20 06:14 Urine Glucose (UA) Neg mg/dL (Negative) 09/08/20 06:14 Urine Ketones Neg mg/dL (Negative) 09/08/20 06:14 Urine Blood Lg (Negative) 09/08/20 06:14 Urine Nitrite Neg (Negative) 09/08/20 06:14 Urine Bilirubin Neg (Negative) 09/08/20 06:14 Urine Urobilinogen < 2.0 mg/dL (<2.0) 09/08/20 06:14 Ur Leukocyte Esterase Mod (Negative) 09/08/20 06:14 Urine WBC (Auto) > 182.0 /HPF (0.0-6.0) H 09/08/20 06:14 Urine RBC (Auto) > 182.0 /HPF (0.0-6.0) 09/08/20 06:14 U Epithel Cells (Auto) 1.0 /HPF (0-13.0) 08/18/20 Unknown Urine Bacteria (Auto) 4+ /HPF (Negative) 09/08/20 06:14 Urine WBC Clumps 3+ /HPF 09/08/20 06:14 Urine Mucus 1+ /HPF 09/08/20 06:14 Ur Yeast w Hyphae 2+ /HPF 09/08/20 06:14 Urine Yeast (Budding) 2+ /HPF 09/08/20 06:14 CSF Appearance Clear 09/13/20 Unknown CSF Color Colorless 09/13/20 Unknown CSF WBC 2 /mm3 (1-10) 09/13/20 Unknown CSF RBC 2 /mm3 (0-0) 09/13/20 Unknown CSF Seg Neutrophils 0 % (0-6) 09/13/20 Unknown CSF Lymphocytes % 1 % (40-80) 09/13/20 Unknown CSF Reactive Lymphs 0 % 09/13/20 Unknown CSF Monocytes % 0 % (15-45) 09/13/20 Unknown CSF Eosinophils % 0 % 09/13/20 Unknown CSF Basophils 0 % 09/13/20 Unknown CSF Pathologist Review C 09/13/20 Unknown CSF Glucose 53 mg/dL 09/13/20 Unknown CSF Total Protein 49 mg/dL 09/13/20 Unknown CSF VDRL Nonreactive (Nonreactive) 09/13/20 Unknown Random Vancomycin 9.8 ug/mL (0-40.0) 08/19/20 19:02 Coronavirus (PCR) Positive (Negative) A 09/04/20 10:27 Blood Type O POSITIVE 08/27/20 20:44 Antibody Screen Negative 08/27/20 20:44 Crossmatch See Detail 08/27/20 20:44 Microbiology: Microbiology 09/13/20 Unknown Cerebral Spinal Fluid CSF Culture - Final Montalvo/IV: Voiding Method Indwelling Catheter IV Catheter Type [Right INT / Saline Lock Forearm] IV Catheter Type [Left Forearm INT / Saline Lock ] IV Catheter Type [Left Hand] INT / Saline Lock IV Catheter Type [Left Triple Lumen Cath Internal Jugular] IV Catheter Type [Left] CVL Active Medications - Current Medications Current Medications: Generic Name Dose Route Start Last Admin Trade Name Freq PRN Reason Stop Dose Admin Acetaminophen 650 mg 09/07/20 19:17 09/07/20 22:50 Acetaminophen 325 Mg/10.15 Ml Oral Liqd Unit Dose FEEDTUBE 650 mg Q6H PRN Administration Pain, Mild (1-3) Amlodipine Besylate 5 mg 09/12/20 10:00 09/16/20 10:03 Amlodipine 5 Mg Tab PO 5 mg DAILY BARBARA Administration Lipase/Protease/Amylase 1 each 09/06/20 19:27 Lipase 10,500/Protease 25,000/Amylase 43,750 (Units) Dr Fernandez FEEDTUBE PRN PRN For Clogged Feeding Tube Atorvastatin Calcium 20 mg 09/12/20 22:00 09/16/20 21:03 Atorvastatin 20 Mg Tab PO 20 mg QHS BARBARA Administration Atropine Sulfate 1 mg 08/23/20 16:56 Atropine 1 Mg/Ml Vial IV PRN PRN Bradycardia Clonidine HCl 0.2 mg 08/31/20 22:00 09/14/20 23:12 Clonidine Tts 0.2 Mg/24 Hr Patch TD 0.2 mg We BARBARA Administration Cyanocobalamin 1,000 mcg 09/12/20 10:00 09/16/20 10:02 Cyanocobalamin (Vit B-12) 1000 Mcg Tab PO 1,000 mcg DAILY BARBARA Administration Folic Acid 1 mg 09/12/20 10:00 09/16/20 10:02 Folic Acid 1 Mg Tab PO 1 mg DAILY BARBARA Administration Hydralazine HCl 5 mg 08/31/20 21:22 09/06/20 23:43 Hydralazine 20 Mg/1 Ml Inj IV 5 mg Q4H PRN Administration Blood Pressure Hydrocortisone Acetate 10 mg 09/07/20 22:00 09/16/20 21:02 Hydrocortisone 10 Mg Tab FEEDTUBE 10 mg Q12HR BARBARA Administration Insulin Glargine 5 units 09/03/20 22:00 09/16/20 22:17 Insulin Glargine 100 Units/Ml SUB-Q Not Given BID [facility] Insulin Human Lispro 0 unit 09/07/20 12:00 09/17/20 06:20 Insulin Lispro 100 Unit/Ml Vial 3 Ml SUB-Q Not Given Q6H [facility] Protocol Lansoprazole 30 mg 09/08/20 10:00 09/16/20 10:01 Lansoprazole 30 Mg Solutab FEEDTUBE 30 mg QDAY BARBARA Administration Levetiracetam 750 mg 09/07/20 22:00 09/16/20 21:02 Levetiracetam 500 Mg/5 Ml Oral Liqd FEEDTUBE 750 mg BID BARBARA Administration Levothyroxine Sodium 50 mcg 09/08/20 06:00 09/17/20 05:15 Levothyroxine 50 Mcg Tab FEEDTUBE 50 mcg DAILY@0600 BARBARA Administration Lisinopril 20 mg 09/14/20 10:00 09/16/20 10:02 Lisinopril 20 Mg Tab PO 20 mg QDAY BARBARA Administration Ondansetron HCl 4 mg 09/07/20 19:17 Ondansetron 4 Mg/2 Ml Inj IV Q8H PRN Nausea Simple Syrup 15 ml 09/06/20 19:27 09/11/20 23:38 Simple Syrup 15 Ml FEEDTUBE 15 ml PRN PRN Administration Hypoglycemia Simple Syrup 30 ml 09/06/20 19:27 Simple Syrup 15 Ml FEEDTUBE PRN PRN Hypoglycemia Sodium Bicarbonate 325 mg 09/06/20 19:27 Sodium Bicarbonate 325 Mg Tab FEEDTUBE PRN PRN For Clogged Feeding Tube Nutrition/Malnutrition Assess - Dietary Evaluation Nutrition/Malnutrition Findings: Nutrition Notes Start: 08/23/20 10:57 Freq: Status: Active Protocol: Document 09/14/20 10:41 EN (Rec: 09/14/20 10:47 EN [id number]) Co-Sign 09/14/20 10:41 MK Nutrition Notes Initial or Follow up Reassessment Current Diagnosis Acute Kidney Injury,Diabetes, Sepsis Other Pertinent Diagnosis Encephalopathy, COVID-19 (+), GIB, UTI, gastric ulcer, gastritis, AMS Current Diet Jevity 1.2 at 50ml/hr Labs/Tests Reviewed Pertinent Medications Lantus Folic Acid Vitamin B 12 Height 5 ft 5 in Weight 81.4 kg [place] Body Weight (kg) 56.81 BMI 29.8 Weight Status Appropriate Subjective/Other Information F/u for TF tolerance and BG control. BG is slightly improved and TF infusing at goal rate. RN reports pt tolerating TF well with no concerns. Percent of energy/protein needs met: 94%/83% Burn Absent Trauma Absent GI Symptoms None Current % PO Negligible Minimum of two criteria No Fluid Accumulation Mild (non-severe) #2 Nutrition Diagnosis Increased nutrient needs ( specify in comment below) Diagnosis Progress(for reassessment Continues documentation) #1 Nutrition Diagnosis Inadequate oral intake Diagnosis Progress(for reassessment Continues documentation) Is patient on ventilator? No Is Patient Ambulatory and/or Out of Bed No REE-([facility]-confined to bed) [phone] Calculation Used for Recommendations [facility] Additional Notes Protein: 81-97 g 1-1.2 g/kg) Fluid needs 1ml/kcal Nutrition Intervention Change Diet Order: Continue TF Nutrition Support: Jevity 1.2 at 50ml/hr Flush with 100ml q4h Kcal 1,440 Protein (gm) 67 Fluid (mL) 968 Goal #1 Meet at least 80% of kcal and protein needs Anticipated Discharge Needs: TF Follow-Up By: 09/20/20 Additional Comments F/u for TF tolerance and BG labs
[2020-09-17] MEDS: amLODIPine 5 MG TAB PO SCH (13:27)
[2020-09-17] MEDS: LANSOPRAZOLE 30 MG SOLUTAB FEEDTUBE SCH (13:27)
[2020-09-17] MEDS: CYANOCOBALAMIN (VIT B-12) 1000 MCG TAB PO SCH (13:27)
[2020-09-17] MEDS: LISINOPRIL 20 MG TAB PO SCH (13:27)
[2020-09-17] MEDS: FOLIC ACID 1 MG TAB PO SCH (13:27)
[2020-09-17] MEDS: levETIRAcetam 500 MG/5 ML ORAL LIQD FEEDTUBE SCH ×2 (13:27→22:14)
[2020-09-17] MEDS: INSULIN GLARGINE 100 UNITS/ML SUB-Q SCH ×2 (13:29→22:14)
[2020-09-17] MEDS: HYDROCORTISONE 10 MG TAB FEEDTUBE SCH ×2 (13:29→22:14)
--- NOTE | 2020-09-17 17:14 | Progress Note ---
Assessment and Plan Paroxysmal atrial fibrillation maintaining sinus rhythm without use of significant AV yoan blocking therapy, suggesting underlying conduction system disease. further use of long-term anticoagulation will not be recommended at this time, in the setting of the recent GI bleed and severe anemia. 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 Will sign off. Please call with questions. Subjective Date of service: 09/17/20 Principal diagnosis: Acute encephalopathy Interval history: Patient not seen in person due to COVID + status in an effort to conserve PPE and prevent unnecessary exposure. No events. Tele - sinus 50s Objective Vital Signs Temp Pulse Resp BP Pulse Ox 09/17/20 05:39 97.1 F L 73 18 147/68 100 09/17/20 00:36 98.1 F 75 20 140/57 99 09/16/20 17:26 98.3 F 85 22 180/98 99 - Physical Examination Narrative exam: Deferred due to COVID + status. Cardiac: Lungs: Neuro: Abdomen: - Labs and Meds Comprehensive Metabolic Panel 09/17/20 Range/Units 05:13 Sodium 139 (137-145) mmol/L Potassium 3.5 L (3.6-5.0) mmol/L Chloride 103.0 (98-107) mmol/L Carbon Dioxide 30 (22-30) mmol/L BUN 13 (7-17) mg/dL Creatinine 0.3 L (0.6-1.2) mg/dL Glucose 148 H (65-100) mg/dL Calcium 7.7 L (8.4-10.2) mg/dL - Imaging and Cardiology EKG: report reviewed
[2020-09-18] MEDS: INSULIN LISPRO 100 UNIT/ML VIAL 3 mL SUB-Q SCH ×4 (00:10→17:31)
[2020-09-18] MEDS: LEVOTHYROXINE 50 MCG TAB FEEDTUBE SCH (05:36)
[2020-09-18] MEDS: FOLIC ACID 1 MG TAB PO SCH (09:41)
[2020-09-18] MEDS: LANSOPRAZOLE 30 MG SOLUTAB FEEDTUBE SCH (09:41)
[2020-09-18] MEDS: HYDROCORTISONE 10 MG TAB FEEDTUBE SCH ×2 (09:41→21:45)
[2020-09-18] MEDS: INSULIN GLARGINE 100 UNITS/ML SUB-Q SCH ×2 (09:41→21:46)
[2020-09-18] MEDS: amLODIPine 5 MG TAB PO SCH (09:41)
[2020-09-18] MEDS: CYANOCOBALAMIN (VIT B-12) 1000 MCG TAB PO SCH (09:42)
[2020-09-18] MEDS: levETIRAcetam 500 MG/5 ML ORAL LIQD FEEDTUBE SCH ×2 (09:42→21:44)
[2020-09-18] MEDS: LISINOPRIL 20 MG TAB PO SCH (09:42)
--- NOTE | 2020-09-18 10:40 | Progress Note ---
Assessment and Plan Assessment and plan: The patient is an 80-year-old woman with advanced dementia who lives in a ch[facility], [place]'s disease, hypertension, vitamin D deficiency, seizure disorder, and hyperlipidemia who presents the emergency department for altered mental status. On presentation to the emergency room, her white count was markedly elevated at 20,000, low grade fever, PAWAN with BUN 55 and creatinine of 3.5 and elevated Mell as well as meningioma on CT head. Neurosurgery, cardiology, nephrology, heme-onc and infectious disease were consulted. 08/24/2020. Patient still mildly confused. However, I suspect patient has u nderlying Alzheimer's dementia and this is her baseline. I discussed plan of care and altered mentation with sister at [phone]. Patient will need DME of hospital bed and oxygen for discharge home. Await physical therapy recommendations. 08/25/2020. Patient still lethargic and confused. Patient receiving hydrocortisone 50 mg IV twice daily for adrenal insufficiency. Check B12, folate and ammonia levels. Neurology consultation pending. Continue supplemental oxygen to maintain sats greater than 92%. 08/26/2020. Encephalopathy likely secondary to toxic metabolic causes in the setting of leukocytosis, improving uremia, renal insufficiency, covid-19, underlying uti. Check CT head without contrast and EEG per neurology recommendations. However may need csf evaluation if brain imaging and eeg are unremarkable and pt continues to remain encephalopathic. Follow-up cortisol levels and T3-T4. 08/27/2020. Patient remains lethargic and confused. Encephalopathy is persistent and likely secondary to toxic metabolic causes from sepsis, renal insufficiency/uremia, COVID-[address] scan of the head found to be negative. Await EEG. Consider CSF evaluation if EEG unremarkable. Consult GI for further evaluation of hematochezia/GI bleed. Continue Protonix 40 mg IV twice daily. Transfuse for hemoglobin less than 7. Continue to monitor serial CBC. Lovenox discontinued which was empirically started for elevated D-dimer. 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 Decrease IV hydrocortisone. Follow-up cortisol levels and T3-T4. I updated the sister and family at [phone]. 08/28/2020. Follow-up EEG per neurology. GI reports if signs of hemodynamic changes, we will proceed with stat bleeding scan. Hemoglobin has dropped to 6. 8. Type and cross and transfuse 2 units. Continue to hold anticoagulation. Continue Protonix 40 mg IV twice daily. Nursing reports inability to place NG tube. Place PICC line and start TPN. Dietitian consulted. ? NG tube placement under fluoroscopy. Patient may need PEG tube placement. 08/29/2020. Patient is s/p 3 units PRBCs. Hemoglobin has stabilized to 11.5. Continue to trend and follow serial H/H. Patient remains hemodynamically stable. If patient has a change, we will proceed with stat bleeding scan. GI following. Continue Protonix 40 mg IV twice daily. Continue to hold an ticoagulation. Nursing reports inability to place NG tube. PICC line placed to initiate TPN. Dietitian consulted. ? NG tube placement under fluoroscopy. Patient may need PEG tube placement. 08/30/2020. Hemoglobin remained stable. Patient is on TPN and will not be discharged on TPN. NG tube could not be placed as per RN.. Awaiting EEG to rule out any seizures. If no etiology found, patient will benefit from a PEG placement as she has advanced dementia. Continue to hold anticoagulation due to recent GI bleed. GI to reevaluate for PEG placement. 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 Not clear if this is baseline. Need to retrieve her records from previous hospitalization. Neurosurgery consulted for evaluation. 09/01/2020. She is remains confused. Neurology evaluation appreciated. No intervention for brain mass. She is on hydrocortisone for hypopituitary function. Will adjust based on cortisol levels. She will need to have PEG place ment for feeds ultimately as she will not be on TPN for a long time. Will reconsult GI for NG tube placement. 09/02. Plan for PEG placement today. She is awake and alert to person only. Vitals stable. 09/03. Had EGD which showed gastritis. Patient will need to have a PEG placement by other means-IR or surgery as per GI. Now on PPI twice daily. Biopsy from gastric ulcer sent. She remains on TPN. Plan to discuss PEG placement IR or surgery. Plan for LP as well. 09/04. Surgery has been consulted for PEG placement. COVID-19 test sent. She remains on TPN. LP still pending 09/05. Patient is awake today but confused. COVID-19 test remains positive. Patients PEG placement may be held for now as per surgery continue Covid infection resolved. She remains on TPN. LP still pending. 09/06. Patient remains confused. COVID-19 test remains positive. Patients PEG placement may be held for now as per surgery continue Covid infection resolved. She remains on TPN. LP still pending. 09/07. Surgery completed laparoscopic-assisted PEG tube placement. Advance tube feeding per dietitian/dredge captain recommendations. Patient has had optimal rate control without use of significant AV yoan blocking therapy which suggests underlying conduction system disease per cardiology. Cardiology does not recommend further use of long-term anticoagulation in the setting of recent GI bleed, anemia, AMS and age. I will call the sister to update her regarding care but no answer. Message left. 09/08. Patient tolerating PEG tube feedings. Awaiting LP. Patient remains confused. Continue hydrocortisone for hypopituitary function. Will discuss with neurology further plans . 09/09. Plans for LP to assess confusion. Continue hydrocortisone for hypopituitary function. Will discuss with neurology further plans . 09/10. Continue hydrocortisone 10 mg daily. Keppra 750 mg daily. Patient tolerating tube feedings. Discussed with neurology further plans regarding encephalopathy. 09/11. Patient much more verbal this morning. Patient appears to be potentially back to baseline. We will discuss with family. Patient remains in sinus rhythm. No long-term anticoagulation given recent GI bleed, gastric ulcer, anemia and advanced dementia. Continue to monitor H&H and transfuse for hem oglobin less than 7. Continue PPI. 09/12: Continuously removes her supplemental oxygenation and places it on her forehead. Her SPO2 is in the high 90s on room air therefore RN was instructed to decrease oxygenation off. This morning RN was instructed to remove CVL as it is somewhat pulled back and to obtain a peripheral IV. Patient will have her lumbar puncture done today. 09/13: Patient is scheduled for lumbar puncture today. Patient remains on room air no acute events reported overnight. Her CVL has been removed. 09/14: Her viral panel and culture are pending in her CSF analysis. CM is to speak with family regarding discharge as they originally wanted the patient to be discharged home. No acute events reported overnight. 09/15: No acute events reported overnight. This morning we attempted to remove her Montalvo catheter however the patient exhibited urinary retention and the Montalvo catheter was replaced. We anticipate discharge tomorrow if all hospital equipment is provided at home. 09/16: Hypokalemia, repleated. AM BMP, Family updated by Dr. Blood and family requests delay in discharge till all DME arrives and a COVID 19 PCR. Patient is more talkative today but she does not make sense. 09/17. Patient awake- no complaints. Labs reviewed. DC planning underway - possible DC on Saturday. Will need home supplies prior to DC. risk control manager aware. 09/18. Patient awake- no complaints. Labs reviewed. DC planning underway - possible DC on Saturday. Will need home supplies prior to DC. risk control manager aware. Problems Sepsis -Patient presented with tachycardia, hypotension, tachypnea, leukocytosis, febrile, acute kidney injury, urinary tract infection -Patient found to have urinary tract infection 11 by urinary analysis -08/18 blood cultures x2 no growth to date -08/18 urine culture no growth to date -Infectious disease consulted,appreciate recommendations -S/p antibiotic therapy Acute toxic metabolic encephalopathy -Possibly secondary to infection versus PAWAN -Patient has baseline dementia -Supportive care -Aspiration/fall precautions -LP pending Extensive skull base meningioma -Noted on CT head -Neurosurgery consulted, appreciate recommendations -No acute intervention indicated at this time per neurosurgery Gastric ulcer, acute -Noted on endoscopy -No active bleeding -Supportive care -PPI Urinary retention, acute -Montalvo catheter had to be placed during hospital stay for urinary retention -09/15 attempted to remove Montalvo catheter however patient still exhibited retention the Montalvo was replaced -Patient will be discharged with Montalvo catheter in place -We will need to follow-up with urology outpatient within 1 to 2 weeks of discharge Elevated D-dimer, acute -D-dimer noted to be 2409.7 and thus empirically started on therapeutic dose anticoagulation. -Patient developed GI bleed and therapeutic anticoagulation was stopped History of COVID-19, remote/acute -COVID-19 PCR is positive on 08/19, 09/03, 09/04 -Patient was recently discharged from [facility] prior to admission after treatment for COVID-19 pneumonia -09/16 family requested a repeated COVID 19 test Seizure disorder, chronic -Resume home Keppra -Seizure precautions -Supportive care [place]'s disease, chronic -On chronic steroids, slightly immunocompromised host Hypertension, chronic -Patient presented with hypotension -Resume home antihypertensive regimen and adjust as needed when appropriate -Blood pressure monitoring per protocol DVT prophylaxis -SCDs to bilateral lower extremities while in bed -Chemical prophylaxis contraindicated secondary to acute GI bleed Disposition -PT/OT has recommended SNF placement however the patient's family refuses -Home health services and DME has been ordered to be delivered to resident -Discharge pending delivery of DME to residence. -09/16 repeat COVID ordered at family request Urinary tract infection, resolved -08/18/2020 urinalysis shows trace leukocyte Estrace and pyuria -08/18 urine culture negative -S/p antibiotic therapy Acute kidney injury, resolved -S/p MIVF -Presented with creatinine/BUN of 3.5/55 -Patient's creatinine has trended down to 0.3 and BUN 17 -Avoid nephrotoxic medications -Renally dose medications -Strict urine output -Secondary to vasomotor nephropathy Leukocytosis, resolved -Admit WBC 20.3 -S/p antibiotic therapy -Trend CBC -09/11 WBC 6.6 -Patient is on chronic steroid therapy for Mehran's disease Hypernatremia, resolved -Presented with a sodium of 146 which trended down but then trended back up to 150 and is now 146 -Trend BMP -Free water flush -09/12 Na 143 Hyperchloremia, resolved -Patient's chloride trended up to 119.3 -09/12 chloride 110 -Trend BMP -Free water flush -09/14 Cl 105.6 Acute hypoxic respiratory failure, resolved -Supplemental oxygen as needed -Pulmonary hygiene -SPO2 monitoring GI bleed/hematochezia, resolved -Endoscopic evaluation revealed gastric ulcer. No active bleeding -Supportive care -PPI -S/p PEG tube on tube feedings History Interval history: No acute events noted overnight. Hospitalist Physical - Physical exam Narrative exam: VITAL SIGNS: Reviewed. GENERAL: Awake HEAD: No signs of head trauma. EYES: Pupils are equal. Extraocular motions intact. MOUTH: Oropharynx is normal. NECK: No adenopathy, no JVD. CHEST: Chest with diminished breath sounds bilaterally. No wheezes, rales, or rhonchi. CARDIAC: normal S1 and S2, without murmurs, gallops, or rubs. ABDOMEN: Soft, non tender and non distended. No rebound or guarding, and no masses palpated. Bowel Sounds normal. PEG in place MUSCULOSKELETAL: No edema NEUROLOGIC EXAM: Awake SKIN: No obvious lesions - Constitutional Vitals: Temp Pulse Resp BP Pulse Ox 98.4 F 64 18 154/68 100 09/18/20 07:59 09/18/20 07:59 09/18/20 07:59 09/18/20 07:59 09/18/20 07:59 HEART Score - HEART Score Troponin: Troponin T 0.075 ng/mL (0.00-0.029) H 08/18/20 18:25 Troponin: 1-3x normal limit - Critical Actions Critical Actions: 4-6 pts:12-16.6% risk of adverse cardiac event. Should be admitted Results - Labs CBC & Chem 7: 09/16/20 05:07 09/17/20 05:13 Labs: Laboratory Last Values WBC 7.8 K/mm3 (4.5-11.0) 09/16/20 05:07 RBC 2.95 M/mm3 (3.65-5.03) L 09/16/20 05:07 Hgb 8.7 gm/dl (10.1-14.3) L 09/16/20 05:07 Hct 25.7 % (30.3-42.9) L 09/16/20 05:07 MCV 87 fl (79-97) 09/16/20 05:07 MCH 29 pg (28-32) 09/16/20 05:07 MCHC 34 % (30-34) 09/16/20 05:07 RDW 16.0 % (13.2-15.2) H 09/16/20 05:07 Plt Count 280 K/mm3 (140-440) 09/16/20 05:07 Lymph % (Auto) 14.6 % (13.4-35.0) 09/11/20 05:44 [place] % (Auto) 6.1 % (0.0-7.3) 09/11/20 05:44 Eos % (Auto) 0.8 % (0.0-4.3) 09/11/20 05:44 Baso % (Auto) 0.2 % (0.0-1.8) 09/11/20 05:44 Lymph # (Auto) 1.0 K/mm3 (1.2-5.4) L 09/11/20 05:44 [place] # (Auto) 0.4 K/mm3 (0.0-0.8) 09/11/20 05:44 Eos # (Auto) 0.1 K/mm3 (0.0-0.4) 09/11/20 05:44 Baso # (Auto) 0.0 K/mm3 (0.0-0.1) 09/11/20 05:44 Add Manual Diff Complete 08/31/20 06:20 Total Counted 100 08/31/20 06:20 Seg Neutrophils % 78.3 % (40.0-70.0) H 09/11/20 05:44 Seg Neuts % (Manual) 87.0 % (40.0-70.0) H 08/31/20 06:20 Band Neutrophils % 1.0 % 08/31/20 06:20 Lymphocytes % (Manual) 5.0 % (13.4-35.0) L 08/31/20 06:20 Reactive Lymphs % (Man) 1.0 % 08/28/20 10:07 Monocytes % (Manual) 5.0 % (0.0-7.3) 08/31/20 06:20 Metamyelocytes % 2.0 % 08/31/20 06:20 Nucleated RBC % Not Reportable 08/31/20 06:20 Seg Neutrophils # 5.2 K/mm3 (1.8-7.7) 09/11/20 05:44 Seg Neutrophils # Man 15.1 K/mm3 (1.8-7.7) H 08/31/20 06:20 Band Neutrophils # 0.2 K/mm3 08/31/20 06:20 Lymphocytes # (Manual) 0.9 K/mm3 (1.2-5.4) L 08/31/20 06:20 Abs React Lymphs (Man) 0.0 K/mm3 08/31/20 06:20 Monocytes # (Manual) 0.9 K/mm3 (0.0-0.8) H 08/31/20 06:20 Eosinophils # (Manual) 0.0 K/mm3 (0.0-0.4) 08/31/20 06:20 Basophils # (Manual) 0.0 K/mm3 (0.0-0.1) 08/31/20 06:20 Metamyelocytes # 0.3 K/mm3 08/31/20 06:20 Myelocytes # 0.0 K/mm3 08/31/20 06:20 Promyelocytes # 0.0 K/mm3 08/31/20 06:20 Blast Cells # 0.0 K/mm3 08/31/20 06:20 WBC Morphology Not Reportable 08/31/20 06:20 Hypersegmented Neuts Not Reportable 08/31/20 06:20 Hyposegmented Neuts Not Reportable 08/31/20 06:20 Hypogranular Neuts Not Reportable 08/31/20 06:20 Smudge Cells Not Reportable 08/31/20 06:20 Toxic Granulation Not Reportable 08/31/20 06:20 Toxic Vacuolation Not Reportable 08/31/20 06:20 Dohle Bodies Not Reportable 08/31/20 06:20 Pelger-Huet Anomaly Not Reportable 08/31/20 06:20 Marie Rods Not Reportable 08/31/20 06:20 Platelet Estimate Consistent w auto 08/31/20 06:20 Clumped Platelets Not Reportable 08/31/20 06:20 Plt Clumps, EDTA Not Reportable 08/31/20 06:20 Large Platelets Not Reportable 08/31/20 06:20 Giant Platelets Not Reportable 08/31/20 06:20 Platelet Satelliting Not Reportable 08/31/20 06:20 Plt Morphology Comment Not Reportable 08/31/20 06:20 RBC Morphology Not Reportable 08/31/20 06:20 Dimorphic RBCs Not Reportable 08/31/20 06:20 Polychromasia Not Reportable 08/31/20 06:20 Hypochromasia Not Reportable 08/31/20 06:20 Poikilocytosis Not Reportable 08/31/20 06:20 Anisocytosis 1+ 08/31/20 06:20 Microcytosis Not Reportable 08/31/20 06:20 Macrocytosis Not Reportable 08/31/20 06:20 Spherocytes Not Reportable 08/31/20 06:20 Pappenheimer Bodies Not Reportable 08/31/20 06:20 Sickle Cells Not Reportable 08/31/20 06:20 Target Cells Not Reportable 08/31/20 06:20 Tear Drop Cells Not Reportable 08/31/20 06:20 Ovalocytes Not Reportable 08/31/20 06:20 Helmet Cells Not Reportable 08/31/20 06:20 [place] Bodies Not Reportable 08/31/20 06:20 Raymond Rings Not Reportable 08/31/20 06:20 Darren Cells Not Reportable 08/31/20 06:20 Bite Cells Not Reportable 08/31/20 06:20 Crenated Cell Not Reportable 08/31/20 06:20 Elliptocytes Not Reportable 08/31/20 06:20 Acanthocytes (Spur) Not Reportable 08/31/20 06:20 Rouleaux Not Reportable 08/31/20 06:20 Hemoglobin C Crystals Not Reportable 08/31/20 06:20 Schistocytes Not Reportable 08/31/20 06:20 Malaria parasites Not Reportable 08/31/20 06:20 Payam Bodies Not Reportable 08/31/20 06:20 Hem Pathologist Commnt No 08/31/20 06:20 PT 15.7 Sec. (12.2-14.9) H 09/09/20 09:44 INR 1.25 (0.87-1.13) H 09/09/20 09:44 APTT 45.2 Sec. (24.2-36.6) H 09/09/20 09:44 D-Dimer 2409.74 ng/mlDDU (0-234) H 08/18/20 Unknown Sodium 139 mmol/L (137-145) 09/17/20 05:13 Potassium 3.5 mmol/L (3.6-5.0) L 09/17/20 05:13 Chloride 103.0 mmol/L (98-107) 09/17/20 05:13 Carbon Dioxide 30 mmol/L (22-30) 09/17/20 05:13 Anion Gap 10 mmol/L 09/17/20 05:13 BUN 13 mg/dL (7-17) 09/17/20 05:13 Creatinine 0.3 mg/dL (0.6-1.2) L 09/17/20 05:13 Estimated GFR > 60 ml/min 09/17/20 05:13 BUN/Creatinine Ratio 43 % 09/17/20 05:13 Glucose 148 mg/dL (65-100) H 09/17/20 05:13 POC Glucose 110 mg/dL (70-105) H 09/18/20 06:53 Lactic Acid 1.00 mmol/L (0.7-2.0) 08/18/20 18:25 Calcium 7.7 mg/dL (8.4-10.2) L 09/17/20 05:13 Phosphorus 5.50 mg/dL (2.5-4.5) H 09/08/20 04:52 Magnesium 2.10 mg/dL (1.7-2.3) 09/08/20 04:52 Ferritin 1950.0 ng/mL (10.0-200.0) H 08/18/20 15:35 Total Bilirubin 0.50 mg/dL (0.1-1.2) 09/04/20 05:57 AST 11 units/L (5-40) 09/04/20 05:57 ALT 8 units/L (7-56) 09/04/20 05:57 Alkaline Phosphatase 59 units/L (35-129) 09/04/20 05:57 Ammonia 32.0 umol/L (25-60) 08/25/20 09:06 Lactate Dehydrogenase 228 units/L (91-180) H 08/18/20 15:35 Total Creatine Kinase 164 units/L (30-135) H 08/22/20 19:44 Troponin T 0.075 ng/mL (0.00-0.029) H 08/18/20 18:25 C-Reactive Protein 35.60 mg/dL (0.00-1.30) H 08/18/20 15:35 Total Protein 4.2 g/dL (6.3-8.2) L 09/04/20 05:57 Albumin 2.5 g/dL (3.9-5) L 09/04/20 05:57 Albumin/Globulin Ratio 1.5 % 09/04/20 05:57 Triglycerides 70 mg/dL (2-149) 08/31/20 06:20 Cholesterol 79 mg/dL (50-199) 08/18/20 18:25 LDL Cholesterol Direct 42 mg/dL (50-130) L 08/18/20 18:25 HDL Cholesterol 23 mg/dL (40-59) L 08/18/20 18:25 Cholesterol/HDL Ratio 3.43 % 08/18/20 18:25 Vitamin B12 721.0 pg/mL (211-911) 08/25/20 09:06 Folate 8.34 ng/mL (7.3-26.0) 08/25/20 09:06 Procalcitonin 4.00 ng/mL (<0.15) 08/18/20 15:35 TSH 0.056 mlU/mL (0.270-4.200) L 08/24/20 17:02 Free T4 1.59 ng/dL (0.76-1.46) H 08/26/20 10:22 Free T3 Index 1.2 pg/mL (2.3-4.2) L 08/26/20 10:22 Total Cortisol 37.6 mcg/dL () 09/02/20 05:30 Urine Color Yellow (Yellow) 09/08/20 06:14 Urine Turbidity Turbid (Clear) 09/08/20 06:14 Urine pH 5.0 (5.0-7.0) 09/08/20 06:14 Ur Specific [place] 1.009 (1.003-1.030) 09/08/20 06:14 Urine Protein 100 mg/dl mg/dL (Negative) 09/08/20 06:14 Urine Glucose (UA) Neg mg/dL (Negative) 09/08/20 06:14 Urine Ketones Neg mg/dL (Negative) 09/08/20 06:14 Urine Blood Lg (Negative) 09/08/20 06:14 Urine Nitrite Neg (Negative) 09/08/20 06:14 Urine Bilirubin Neg (Negative) 09/08/20 06:14 Urine Urobilinogen < 2.0 mg/dL (<2.0) 09/08/20 06:14 Ur Leukocyte Esterase Mod (Negative) 09/08/20 06:14 Urine WBC (Auto) > 182.0 /HPF (0.0-6.0) H 09/08/20 06:14 Urine RBC (Auto) > 182.0 /HPF (0.0-6.0) 09/08/20 06:14 U Epithel Cells (Auto) 1.0 /HPF (0-13.0) 08/18/20 Unknown Urine Bacteria (Auto) 4+ /HPF (Negative) 09/08/20 06:14 Urine WBC Clumps 3+ /HPF 09/08/20 06:14 Urine Mucus 1+ /HPF 09/08/20 06:14 Ur Yeast w Hyphae 2+ /HPF 09/08/20 06:14 Urine Yeast (Budding) 2+ /HPF 09/08/20 06:14 CSF Appearance Clear 09/13/20 Unknown CSF Color Colorless 09/13/20 Unknown CSF WBC 2 /mm3 (1-10) 09/13/20 Unknown CSF RBC 2 /mm3 (0-0) 09/13/20 Unknown CSF Seg Neutrophils 0 % (0-6) 09/13/20 Unknown CSF Lymphocytes % 1 % (40-80) 09/13/20 Unknown CSF Reactive Lymphs 0 % 09/13/20 Unknown CSF Monocytes % 0 % (15-45) 09/13/20 Unknown CSF Eosinophils % 0 % 09/13/20 Unknown CSF Basophils 0 % 09/13/20 Unknown CSF Pathologist Review C 09/13/20 Unknown CSF Glucose 53 mg/dL 09/13/20 Unknown CSF Total Protein 49 mg/dL 09/13/20 Unknown CSF VDRL Nonreactive (Nonreactive) 09/13/20 Unknown Random Vancomycin 9.8 ug/mL (0-40.0) 08/19/20 19:02 Coronavirus (PCR) Negative (Negative) 09/17/20 Unknown Blood Type O POSITIVE 08/27/20 20:44 Antibody Screen Negative 08/27/20 20:44 Crossmatch See Detail 08/27/20 20:44 Montalvo/IV: Voiding Method Indwelling Catheter IV Catheter Type [Right INT / Saline Lock Forearm] IV Catheter Type [Left Forearm INT / Saline Lock ] IV Catheter Type [Left Hand] INT / Saline Lock IV Catheter Type [Left Triple Lumen Cath Internal Jugular] IV Catheter Type [Left] CVL Active Medications - Current Medications Current Medications: Generic Name Dose Route Start Last Admin Trade Name Freq PRN Reason Stop Dose Admin Acetaminophen 650 mg 09/07/20 19:17 09/07/20 22:50 Acetaminophen 325 Mg/10.15 Ml Oral Liqd Unit Dose FEEDTUBE 650 mg Q6H PRN Administration Pain, Mild (1-3) Amlodipine Besylate 5 mg 09/12/20 10:00 09/18/20 09:41 Amlodipine 5 Mg Tab PO 5 mg DAILY BARBARA Administration Lipase/Protease/Amylase 1 each 09/06/20 19:27 Lipase 10,500/Protease 25,000/Amylase 43,750 (Units) Dr Cap FEEDTUBE PRN PRN For Clogged Feeding Tube Atorvastatin Calcium 20 mg 09/12/20 22:00 09/17/20 22:15 Atorvastatin 20 Mg Tab PO 20 mg QHS BARBARA Administration Atropine Sulfate 1 mg 08/23/20 16:56 Atropine 1 Mg/Ml Vial IV PRN PRN Bradycardia Clonidine HCl 0.2 mg 08/31/20 22:00 09/14/20 23:12 Clonidine Tts 0.2 Mg/24 Hr Patch TD 0.2 mg We BARBARA Administration Cyanocobalamin 1,000 mcg 09/12/20 10:00 09/18/20 09:42 Cyanocobalamin (Vit B-12) 1000 Mcg Tab PO 1,000 mcg DAILY BARBARA Administration Folic Acid 1 mg 09/12/20 10:00 09/18/20 09:41 Folic Acid 1 Mg Tab PO 1 mg DAILY BARBARA Administration Hydralazine HCl 5 mg 08/31/20 21:22 09/06/20 23:43 Hydralazine 20 Mg/1 Ml Inj IV 5 mg Q4H PRN Administration Blood Pressure Hydrocortisone Acetate 10 mg 09/07/20 22:00 09/18/20 09:41 Hydrocortisone 10 Mg Tab FEEDTUBE 10 mg Q12HR BARBARA Administration Insulin Glargine 5 units 09/03/20 22:00 09/18/20 09:41 Insulin Glargine 100 Units/Ml SUB-Q 5 units BID BARBARA Administration Insulin Human Lispro 0 unit 09/07/20 12:00 09/18/20 06:46 Insulin Lispro 100 Unit/Ml Vial 3 Ml SUB-Q Not Given Q6H [facility] Protocol Lansoprazole 30 mg 09/08/20 10:00 09/18/20 09:41 Lansoprazole 30 Mg Solutab FEEDTUBE 30 mg QDAY BARBARA Administration Levetiracetam 750 mg 09/07/20 22:00 09/18/20 09:42 Levetiracetam 500 Mg/5 Ml Oral Liqd FEEDTUBE 750 mg BID BARBARA Administration Levothyroxine Sodium 50 mcg 09/08/20 06:00 09/18/20 05:36 Levothyroxine 50 Mcg Tab FEEDTUBE 50 mcg DAILY@0600 BARBARA Administration Lisinopril 20 mg 09/14/20 10:00 09/18/20 09:42 Lisinopril 20 Mg Tab PO 20 mg QDAY BARBARA Administration Ondansetron HCl 4 mg 09/07/20 19:17 Ondansetron 4 Mg/2 Ml Inj IV Q8H PRN Nausea Simple Syrup 15 ml 09/06/20 19:27 09/11/20 23:38 Simple Syrup 15 Ml FEEDTUBE 15 ml PRN PRN Administration Hypoglycemia Simple Syrup 30 ml 09/06/20 19:27 Simple Syrup 15 Ml FEEDTUBE PRN PRN Hypoglycemia Sodium Bicarbonate 325 mg 09/06/20 19:27 Sodium Bicarbonate 325 Mg Tab FEEDTUBE PRN PRN For Clogged Feeding Tube Nutrition/Malnutrition Assess - Dietary Evaluation Nutrition/Malnutrition Findings: Nutrition Notes Start: 08/23/20 10:57 Freq: Status: Active Protocol: Document 09/14/20 10:41 EN (Rec: 09/14/20 10:47 EN [id number]) Co-Sign 09/14/20 10:41 MK Nutrition Notes Initial or Follow up Reassessment Current Diagnosis Acute Kidney Injury,Diabetes, Sepsis Other Pertinent Diagnosis Encephalopathy, COVID-19 (+), GIB, UTI, gastric ulcer, gastritis, AMS Current Diet Jevity 1.2 at 50ml/hr Labs/Tests Reviewed Pertinent Medications Lantus Folic Acid Vitamin B 12 Height 5 ft 5 in Weight 81.4 kg [place] Body Weight (kg) 56.81 BMI 29.8 Weight Status Appropriate Subjective/Other Information F/u for TF tolerance and BG control. BG is slightly improved and TF infusing at goal rate. RN reports pt tolerating TF well with no concerns. Percent of energy/protein needs met: 94%/83% Burn Absent Trauma Absent GI Symptoms None Current % PO Negligible Minimum of two criteria No Fluid Accumulation Mild (non-severe) #2 Nutrition Diagnosis Increased nutrient needs ( specify in comment below) Diagnosis Progress(for reassessment Continues documentation) #1 Nutrition Diagnosis Inadequate oral intake Diagnosis Progress(for reassessment Continues documentation) Is patient on ventilator? No Is Patient Ambulatory and/or Out of Bed No REE-([facility]-confined to bed) 3485.846 Calculation Used for Recommendations [facility] Additional Notes Protein: 81-97 g 1-1.2 g/kg) Fluid needs 1ml/kcal Nutrition Intervention Change Diet Order: Continue TF Nutrition Support: Jevity 1.2 at 50ml/hr Flush with 100ml q4h Kcal 1,440 Protein (gm) 67 Fluid (mL) 968 Goal #1 Meet at least 80% of kcal and protein needs Anticipated Discharge Needs: TF Follow-Up By: 09/20/20 Additional Comments F/u for TF tolerance and BG labs
[2020-09-19] MEDS: INSULIN LISPRO 100 UNIT/ML VIAL 3 mL SUB-Q SCH ×4 (00:10→18:53)
[2020-09-19] MEDS: LEVOTHYROXINE 50 MCG TAB FEEDTUBE SCH (05:29)
[2020-09-19] MEDS ORDERED: amLODIPine 5 MG TAB PO SCH ×2 (11:00)
[2020-09-19] MEDS: levETIRAcetam 500 MG/5 ML ORAL LIQD FEEDTUBE SCH ×2 (11:28→22:52)
[2020-09-19] MEDS: CYANOCOBALAMIN (VIT B-12) 1000 MCG TAB PO SCH (11:28)
[2020-09-19] MEDS: LANSOPRAZOLE 30 MG SOLUTAB FEEDTUBE SCH (11:29)
[2020-09-19] MEDS: LISINOPRIL 20 MG TAB PO SCH (11:32)
[2020-09-19] MEDS: FOLIC ACID 1 MG TAB PO SCH (11:33)
[2020-09-19] MEDS: HYDROCORTISONE 10 MG TAB FEEDTUBE SCH ×2 (11:33→22:52)
[2020-09-19] MEDS: INSULIN GLARGINE 100 UNITS/ML SUB-Q SCH ×2 (11:34→22:52)
--- NOTE | 2020-09-19 12:27 | Discharge Summary ---
<FUNMILAYO MALDONADO - Last Filed: 09/19/20 18:28> Providers - Providers Date of Admission: 08/19/20 12:00 Date of discharge: 09/19/20 Attending physician: FUNMILAYO MALDONADO 08/18/20 17:57 Consult to Physician [CONS] Urgent Comment: Consulting Provider: MARGARET LEUNG Physician Instructions: Reason For Exam: renal insufficiency 08/19/20 12:01 Consult to Physician [CONS] Routine Comment: Consulting Provider: MINERVA KAUR Physician Instructions: Reason For Exam: Elevated troponins 08/19/20 23:48 Consult to Physician [CONS] Routine Comment: Consulting Provider: LAWRENCE MARRERO Physician Instructions: Reason For Exam: Sepsis, Covid positive 08/23/20 02:24 Physical Therapy Evaluation and Treat [CONS] Routine Comment: Reason For Exam: evaluation 08/23/20 02:25 Occupational Therapy Evaluate and Treat [CONS] Routine Comment: Reason For Exam: evaluation Speech Therapy Evaluation and Treat [CONS] Routine Reason For Exam: evaluation 08/24/20 13:26 Consult to Physician [CONS] Routine Comment: Consulting Provider: GÉNESIS WALKER Physician Instructions: Reason For Exam: encephalopathy 08/25/20 15:51 Consult to Dietitian/Nutrition [CONS] Stat Physician Instructions: Reason For Exam: Reason for Consult: Write/Manage Tube Feeding 08/26/20 23:02 Consult to Physician [CONS] Routine Comment: Consulting Provider: FLOWER EDUARDO Physician Instructions: Reason For Exam: GI bleed 08/27/20 10:00 Consult to Physician [CONS] Routine Comment: Consulting Provider: FLOWER EDUARDO Physician Instructions: Reason For Exam: hematochezia 08/28/20 07:36 Consult to Dietitian/Nutrition [CONS] Routine Physician Instructions: Reason For Exam: Reason for Consult: Write/Manage TPN/PPN 08/30/20 12:47 Consult to Physician [CONS] Routine Comment: Consulting Provider: MATTY MANCIA II Physician Instructions: Reason For Exam: Brain meningioma 08/31/20 09:00 Consult to Wound/ET Nurse [CONS] Routine Reason For Exam: wound eval 08/31/20 11:22 Consult to Physician [CONS] Routine Comment: Consulting Provider: FREDA BOWERS Physician Instructions: Reason For Exam: Brain tumor` 09/01/20 07:39 Consult to Physician [CONS] Routine Comment: Consulting Provider: MAYTE VALDIVIA Physician Instructions: Reason For Exam: Evaluation for PEG placement 09/02/20 12:27 Consult to Dietitian/Nutrition [CONS] Routine Physician Instructions: Assess nutrtn needs, initiate, modify, manage TF Reason For Exam: Reason for Consult: Write/Manage Tube Feeding Reason for Consult: Write/Manage Tube Feeding 09/03/20 14:09 Consult to Physician [CONS] Routine Comment: Consulting Provider: TERESA MCKEON Physician Instructions: Reason For Exam: PEG placement 09/06/20 19:27 Consult to Dietitian/Nutrition [CONS] Routine Physician Instructions: Assess nutrtn needs, initiate, modify, manage TF Reason For Exam: Reason for Consult: Write/Manage Tube Feeding Reason for Consult: Write/Manage Tube Feeding Primary care physician: ZOYA BARRERA Hospitalization Condition: Stable Disposition: DC/TX-06 HOME UNDER HOME HLTH Exam - Constitutional Vitals: Temp Pulse Resp BP Pulse Ox 97.4 F L 63 22 157/65 95 09/19/20 17:17 09/19/20 16:24 09/19/20 17:17 09/19/20 17:17 09/19/20 17:17 Plan Follow up with: DONNA MCCALLUM MD [Staff Physician] - 7 Days EDNA OLIVAS MD [Staff Physician] - 7 Days NUNO KING MD [Staff Physician] - 7 Days ZOYA BARRERA MD [Primary Care Provider] - 7 Days Prescriptions: AtorvaSTATin [Lipitor] 20 mg PO QHS #30 tab amLODIPine 10 mg PO DAILY #30 tablet cloNIDine-TTS PATCH [Catapres-Tts 0.2mg Patch] 0.2 mg TD We #4 patch Hydrocortisone [Cortef TAB] 10 mg FEEDTUBE Q12HR #60 tablet Folic Acid [Folvite] 1 mg PO DAILY #30 tablet levETIRAcetam [Keppra] 750 mg FEEDTUBE BID #60 oral.liqd Insulin Glargine [Lantus VIAL] 5 units SUB-Q BID #1 vial Lipase/Protease/Amylase [Mp Lopez 10,500 Unit] 1 each FEEDTUBE PRN PRN #10 capsule PRN Reason: For Clogged Feeding Tube Lansoprazole Solutab [Prevacid Solutab] 30 mg FEEDTUBE QDAY #10 tab.rapdis Sodium Bicarbonate 325 mg FEEDTUBE PRN PRN #10 tablet PRN Reason: For Clogged Feeding Tube Levothyroxine [Synthroid] 50 mcg FEEDTUBE DAILY@0600 #30 tablet Cyanocobalamin [Vitamin B-12] 1,000 mcg PO DAILY #30 lisinopriL [Zestril TAB] 20 mg PO QDAY #30 tablet <SCAR CHARLES. - Last Filed: 09/22/20 12:54> Providers - Providers Date of Admission: 08/19/20 12:00 Attending physician: FUNMILAYO MALDONADO 08/18/20 17:57 Consult to Physician [CONS] Urgent Comment: Consulting Provider: MARGARET LEUNG Physician Instructions: Reason For Exam: renal insufficiency 08/19/20 12:01 Consult to Physician [CONS] Routine Comment: Consulting Provider: MINERVA KAUR Physician Instructions: Reason For Exam: Elevated troponins 08/19/20 23:48 Consult to Physician [CONS] Routine Comment: Consulting Provider: LAWRENCE MARRERO Physician Instructions: Reason For Exam: Sepsis, Covid positive 08/23/20 02:24 Physical Therapy Evaluation and Treat [CONS] Routine Comment: Reason For Exam: evaluation 08/23/20 02:25 Occupational Therapy Evaluate and Treat [CONS] Routine Comment: Reason For Exam: evaluation Speech Therapy Evaluation and Treat [CONS] Routine Reason For Exam: evaluation 08/24/20 13:26 Consult to Physician [CONS] Routine Comment: Consulting Provider: GÉNESIS WALKER Physician Instructions: Reason For Exam: encephalopathy 08/25/20 15:51 Consult to Dietitian/Nutrition [CONS] Stat Physician Instructions: Reason For Exam: Reason for Consult: Write/Manage Tube Feeding 08/26/20 23:02 Consult to Physician [CONS] Routine Comment: Consulting Provider: FLOWER EDUARDO Physician Instructions: Reason For Exam: GI bleed 08/27/20 10:00 Consult to Physician [CONS] Routine Comment: Consulting Provider: FLOWER EDUARDO Physician Instructions: Reason For Exam: hematochezia 08/28/20 07:36 Consult to Dietitian/Nutrition [CONS] Routine Physician Instructions: Reason For Exam: Reason for Consult: Write/Manage TPN/PPN 08/30/20 12:47 Consult to Physician [CONS] Routine Comment: Consulting Provider: MATTY MANCIA II Physician Instructions: Reason For Exam: Brain meningioma 08/31/20 09:00 Consult to Wound/ET Nurse [CONS] Routine Reason For Exam: wound eval 08/31/20 11:22 Consult to Physician [CONS] Routine Comment: Consulting Provider: FREDA BOWERS Physician Instructions: Reason For Exam: Brain tumor` 09/01/20 07:39 Consult to Physician [CONS] Routine Comment: Consulting Provider: MAYTE VALDIVIA Physician Instructions: Reason For Exam: Evaluation for PEG placement 09/02/20 12:27 Consult to Dietitian/Nutrition [CONS] Routine Physician Instructions: Assess nutrtn needs, initiate, modify, manage TF Reason For Exam: Reason for Consult: Write/Manage Tube Feeding Reason for Consult: Write/Manage Tube Feeding 09/03/20 14:09 Consult to Physician [CONS] Routine Comment: Consulting Provider: TERESA MCKEON Physician Instructions: Reason For Exam: PEG placement 09/06/20 19:27 Consult to Dietitian/Nutrition [CONS] Routine Physician Instructions: Assess nutrtn needs, initiate, modify, manage TF Reason For Exam: Reason for Consult: Write/Manage Tube Feeding Reason for Consult: Write/Manage Tube Feeding Primary care physician: ZOYA BARRERA Hospitalization Hospital course: The patient is an 80-year-old woman with advanced dementia who lives in a [facility], [place]'s disease, hypertension, vitamin D deficiency, seizure disorder, and hyperlipidemia who presents the emergency department for altered mental status. On presentation to the emergency room, her white count was markedly elevated at 20,000, low grade fever, PAWAN with BUN 55 and creatinine of 3.5 and elevated Mell as well as meningioma on CT head. Neurosurgery, cardiology, nephrology, heme-onc and infectious disease were consulted. Patient remained lethargic and confused and had metabolic encephalopathy at the time of admission. Patient eventually had EEG and lumbar puncture which were not revealing for any acute process. Patient developed GI bleed while inpatient and received 3 units of PRBC with resolution. Patient also received a PEG tube from GI. Patient had an MRI which showed skull base meningioma and neurosurgery was consulted who recommended no acute intervention at this time. Patient remained positive for COVID-19 during her stay however during her last COVID-19 PCR she resulted negative. Patient was eventually able to be weaned down from supplemental oxygenation to room air. Patient has a Montalvo catheter and will be discharged with this in place as he was unable to be removed due to retention. Patient had various electrolyte abnormalities during her stay which were corrected. Patient will be discharged home with home health services and DME. Patient will need to follow-up with her primary care physician, gastroenterology, urology and neurology within 1 to 2 weeks of discharge. Problems Sepsis -Patient presented with tachycardia, hypotension, tachypnea, leukocytosis, febrile, acute kidney injury, urinary tract infection -Patient found to have urinary tract infection 11 by urinary analysis -08/18 blood cultures x2 no growth to date -08/18 urine culture no growth to date -Infectious disease consulted,appreciate recommendations -S/p antibiotic therapy Acute toxic metabolic encephalopathy -Possibly secondary to infection versus PAWAN -Patient has baseline dementia -Supportive care -Aspiration/fall precautions -LP negative for any acute process Extensive skull base meningioma -Noted on CT head -Neurosurgery consulted, appreciate recommendations -No acute intervention indicated at this time per neurosurgery Gastric ulcer, acute -Noted on endoscopy -No long-term anticoagulation in setting of gastric ulcer Urinary retention, acute -Montalvo catheter had to be placed during hospital stay for urinary retention -09/15 attempted to remove Montalvo catheter however patient still exhibited retention the Montalvo was replaced -Patient will be discharged with Montalvo catheter in place -We will need to follow-up with urology outpatient within 1 to 2 weeks of discharge Elevated D-dimer, acute -D-dimer noted to be 2409.7 and thus empirically started on therapeutic dose anticoagulation. 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 -09/16 repeat COVID ordered at family request Urinary tract infection, resolved -08/18/2020 urinalysis shows trace leukocyte Estrace and pyuria -08/18 urine culture negative -S/p antibiotic therapy Acute kidney injury, resolved -S/p MIVF -Presented with creatinine/BUN of 3.5/55 -Patient's creatinine has trended down to 0.3 and BUN 17 -Avoid nephrotoxic medications -Renally dose medications -Strict urine output -Secondary to vasomotor nephropathy Leukocytosis, resolved -Admit WBC 20.3 -S/p antibiotic therapy -Trend CBC -09/11 WBC 6.6 -Patient is on chronic steroid therapy for Mehran's disease Hypernatremia, resolved -Presented with a sodium of 146 which trended down but then trended back up to 150 and is now 146 -Trend BMP -Free water flush -09/12 Na 143 Hyperchloremia, resolved -Patient's chloride trended up to 119.3 -09/12 chloride 110 -Trend BMP -Free water flush -09/14 Cl 105.6 Acute hypoxic respiratory failure, resolved -Supplemental oxygen as needed -Pulmonary hygiene -SPO2 monitoring GI bleed/hematochezia, resolved -Endoscopic evaluation revealed gastric ulcer. No active bleeding -Supportive care -PPI -S/p PEG tube on tube feedings Time spent for discharge: 35 Core Measure Documentation - Palliative Care Palliative Care/ Comfort Measures: Not Applicable - Core Measures Any of the following diagnoses?: history only Exam - Constitutional Vitals: Temp Pulse Resp BP Pulse Ox 97.4 F L 60 22 165/48 100 09/19/20 09:21 09/19/20 11:32 09/19/20 09:21 09/19/20 09:21 09/19/20 09:21 General appearance: Present: no acute distress - EENT Eyes: Present: PERRL, EOM intact ENT: hearing intact, clear oral mucosa - Neck Neck: Present: normal ROM - Respiratory Respiratory effort: normal Respiratory: bilateral: CTA - Cardiovascular Rhythm: regular Heart Sounds: Present: S1 & S2. Absent: systolic murmur, diastolic murmur - Extremities Extremities: no ischemia, pulses intact, pulses symmetrical, No edema, normal temperature, normal color, Full ROM Peripheral Pulses: within normal limits - Abdominal General gastrointestinal: Present: soft, non-tender, non-distended, normal bowel sounds - Integumentary Integumentary: Present: clear, warm, dry - Musculoskeletal Musculoskeletal: strength equal bilaterally - Psychiatric Psychiatric: appropriate mood/affect, cooperative - Neurologic Neurologic: CNII-XII intact, moves all extremities Plan Activity: advance as tolerated Diet: other (Tube feedings) Wound: per wound nurse instructions Special Instructions: record daily BP diary, record blood sugar diary, physical therapy, occupational therapy, home health RN Durable Medical Equipment Needed Upon Discharge: Trapeze, Hospital Bed Additional Instructions: Present to your nearest emergency department or contact your primary care physician if you experience worsening symptoms. You will be discharged with DME and home health care services. You will need to follow-up with your primary care physician, gastroenterology and neurology within 1 to 2 weeks of discharge.
[2020-09-19] MEDS: amLODIPine 10 MG TAB PO SCH (18:11)
[2020-09-20] MEDS: INSULIN LISPRO 100 UNIT/ML VIAL 3 mL SUB-Q SCH ×4 (00:09→19:58)
[2020-09-20] MEDS: LEVOTHYROXINE 50 MCG TAB FEEDTUBE SCH (05:21)
[2020-09-20] MEDS: hydrALAZINE 20 MG/1 ML INJ IV PRN (05:21)
[2020-09-20] MEDS: HYDROCORTISONE 10 MG TAB FEEDTUBE SCH ×2 (11:39→22:24)
[2020-09-20] MEDS: amLODIPine 10 MG TAB PO SCH (11:40)
[2020-09-20] MEDS: LANSOPRAZOLE 30 MG SOLUTAB FEEDTUBE SCH (11:46)
[2020-09-20] MEDS: CYANOCOBALAMIN (VIT B-12) 1000 MCG TAB PO SCH (11:47)
[2020-09-20] MEDS: FOLIC ACID 1 MG TAB PO SCH (11:47)
[2020-09-20] MEDS: levETIRAcetam 500 MG/5 ML ORAL LIQD FEEDTUBE SCH ×2 (11:48→22:24)
[2020-09-20] MEDS: INSULIN GLARGINE 100 UNITS/ML SUB-Q SCH ×2 (11:51→22:24)
[2020-09-20] MEDS: LISINOPRIL 20 MG TAB PO SCH (11:55)
--- NOTE | 2020-09-20 15:36 | Event Note ---
Date: 09/20/20 patient planned for d/c today with HH
--- NOTE | 2020-09-20 17:14 | Progress Note ---
Assessment and Plan Sepsis -Patient presented with tachycardia, hypotension, tachypnea, leukocytosis, febrile, acute kidney injury, urinary tract infection -Patient found to have urinary tract infection 11 by urinary analysis -08/18 blood cultures x2 no growth to date -08/18 urine culture no growth to date -Infectious disease consulted,appreciate recommendations -S/p antibiotic therapy Acute toxic metabolic encephalopathy -Possibly secondary to infection versus PAWAN -Patient has baseline dementia -Supportive care -Aspiration/fall precautions -LP pending Extensive skull base meningioma -Noted on CT head -Neurosurgery consulted, appreciate recommendations -No acute intervention indicated at this time per neurosurgery Gastric ulcer, acute -Noted on endoscopy -No active bleeding -Supportive care -PPI Urinary retention, acute -Montalvo catheter had to be placed during hospital stay for urinary retention -09/15 attempted to remove Montalvo catheter however patient still exhibited retention the Montalvo was replaced -Patient will be discharged with Montalvo catheter in place -We will need to follow-up with urology outpatient within 1 to 2 weeks of discharge Elevated D-dimer, acute -D-dimer noted to be 2409.7 and thus empirically started on therapeutic dose anticoagulation. -Patient developed GI bleed and therapeutic anticoagulation was stopped History of COVID-19, remote/acute -COVID-19 PCR is positive on 08/19, 09/03, 09/04 -Patient was recently discharged from [facility] prior to admission after treatment for COVID-19 pneumonia -09/16 family requested a repeated COVID 19 test Seizure disorder, chronic -Resume home Keppra -Seizure precautions -Supportive care [place]'s disease, chronic -On chronic steroids, slightly immunocompromised host Hypertension, chronic -Patient presented with hypotension -Resume home antihypertensive regimen and adjust as needed when appropriate -Blood pressure monitoring per protocol DVT prophylaxis -SCDs to bilateral lower extremities while in bed -Chemical prophylaxis contraindicated secondary to acute GI bleed Disposition -PT/OT has recommended SNF placement however the patient's family refuses -Home health services and DME has been ordered to be delivered to resident -Discharge pending delivery of DME to residence. -09/16 repeat COVID ordered at family request Urinary tract infection, resolved -08/18/2020 urinalysis shows trace leukocyte Estrace and pyuria -08/18 urine culture negative -S/p antibiotic therapy Acute kidney injury, resolved -S/p MIVF -Presented with creatinine/BUN of 3.5/55 -Patient's creatinine has trended down to 0.3 and BUN 17 -Avoid nephrotoxic medications -Renally dose medications -Strict urine output -Secondary to vasomotor nephropathy Leukocytosis, resolved -Admit WBC 20.3 -S/p antibiotic therapy -Trend CBC -09/11 WBC 6.6 -Patient is on chronic steroid therapy for Mehran's disease Hypernatremia, resolved -Presented with a sodium of 146 which trended down but then trended back up to 150 and is now 146 -Trend BMP -Free water flush -09/12 Na 143 Hyperchloremia, resolved -Patient's chloride trended up to 119.3 -09/12 chloride 110 -Trend BMP -Free water flush -09/14 Cl 105.6 Acute hypoxic respiratory failure, resolved -Supplemental oxygen as needed -Pulmonary hygiene -SPO2 monitoring GI bleed/hematochezia, resolved -Endoscopic evaluation revealed gastric ulcer. No active bleeding -Supportive care -PPI -S/p PEG tube on tube feedings History Interval history: The patient is an 80-year-old woman with advanced dementia who lives in a senior care, Mehran's disease, hypertension, vitamin D deficiency, seizure di sorder, and hyperlipidemia who presents the emergency department for altered mental status. On presentation to the emergency room, her white count was markedly elevated at 20,000, low grade fever, PAWAN with BUN 55 and creatinine of 3.5 and elevated Mell as well as meningioma on CT head. Neurosurgery, cardiology, nephrology, heme-onc and infectious disease were consulted. 08/24/2020. Patient still mildly confused. However, I suspect patient has underlying Alzheimer's dementia and this is her baseline. I discussed plan of care and altered mentation with sister at [phone]. Patient will need DME of hospital bed and oxygen for discharge home. Await physical therapy recommendations. 08/25/2020. Patient still lethargic and confused. Patient receiving hydrocortisone 50 mg IV twice daily for adrenal insufficiency. Check B12, folate and ammonia levels. Neurology consultation pending. Continue supplemental oxygen to maintain sats greater than 92%. 08/26/2020. Encephalopathy likely secondary to toxic metabolic causes in the setting of leukocytosis, improving uremia, renal insufficiency, covid-19, underlying uti. Check CT head without contrast and EEG per neurology recommendations. However may need csf evaluation if brain imaging and eeg are unremarkable and pt continues to remain encephalopathic. Follow-up cortisol levels and T3-T4. 08/27/2020. Patient remains lethargic and confused. Encephalopathy is persistent and likely secondary to toxic metabolic causes from sepsis, renal insufficiency/uremia, COVID-[address] scan of the head found to be negative. Await EEG. Consider CSF evaluation if EEG unremarkable. Consult GI for further evaluation of hematochezia/GI bleed. Continue Protonix 40 mg IV twice daily. Transfuse for hemoglobin less than 7. Continue to monitor serial CBC. Lovenox discontinued which was empirically started for elevated D-dimer. Patient does have a history of chronic steroids for [place]'s disease. Decrease IV hydrocortisone. Follow-up cortisol levels and T3-T4. I updated the sister and family at [phone]. 08/28/2020. Follow-up EEG per neurology. GI reports if signs of hemodynamic changes, we will proceed with stat bleeding scan. Hemoglobin has dropped to 6.8. Type and cross and transfuse 2 units. Continue to hold anticoagulation. Continue Protonix 40 mg IV twice daily. Nursing reports inability to place NG tube. Place PICC line and start TPN. Dietitian consulted. ? NG tube placement under fluoroscopy. Patient may need PEG tube placement. 08/29/2020. Patient is s/p 3 units PRBCs. Hemoglobin has stabilized to 11.5. Continue to trend and follow serial H/H. Patient remains hemodynamically stable. If patient has a change, we will proceed with stat bleeding scan. GI following. Continue Protonix 40 mg IV twice daily. Continue to hold anticoagulation. Nursing reports inability to place NG tube. PICC line placed to initiate TPN. Dietitian consulted. ? NG tube placement under fluoroscopy. Patient may need PEG tube placement. 08/30/2020. Hemoglobin remained stable. Patient is on TPN and will not be discharged on TPN. NG tube could not be placed as per RN.. Awaiting EEG to rule out any seizures. If no etiology found, patient will benefit from a PEG placement as she has advanced dementia. Continue to hold anticoagulation due to recent GI bleed. GI to reevaluate for PEG placement. 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 Not clear if this is baseline. Need to retrieve her records from previous hospitalization. Neurosurgery consulted for evaluation. 09/01/2020. She is remains confused. Neurology evaluation appreciated. No intervention for brain mass. She is on hydrocortisone for hypopituitary function. Will adjust based on cortisol levels. She will need to have PEG placement for feeds ultimately as she will not be on TPN for a long time. Will reconsult GI for NG tube placement. 09/02. Plan for PEG placement today. She is awake and alert to person only. Vitals stable. 09/03. Had EGD which showed gastritis. Patient will need to have a PEG placement by other means-IR or surgery as per GI. Now on PPI twice daily. Biopsy from gastric ulcer sent. She remains on TPN. Plan to discuss PEG placement IR or surgery. Plan for LP as well. 09/04. Surgery has been consulted for PEG placement. COVID-19 test sent. She remains on TPN. LP still pending 09/05. Patient is awake today but confused. COVID-19 test remains positive. Patients PEG placement may be held for now as per surgery continue Covid infection resolved. She remains on TPN. LP still pending. 09/06. Patient remains confused. COVID-19 test remains positive. Patients PEG placement may be held for now as per surgery continue Covid infection resolved. She remains on TPN. LP still pending. 09/07. Surgery completed laparoscopic-assisted PEG tube placement. Advance tube feeding per dietitian/department head college or university recommendations. Patient has had optimal rate control without use of significant AV yoan blocking therapy which suggests underlying conduction system disease per cardiology. Cardiology does not recommend further use of long-term anticoagulation in the setting of recent GI bleed, anemia, AMS and age. I will call the sister to update her regarding care but no answer. Message left. 09/08. Patient tolerating PEG tube feedings. Awaiting LP. Patient remains confused. Continue hydrocortisone for hypopituitary function. Will discuss with neurology further plans . 09/09. Plans for LP to assess confusion. Continue hydrocortisone for hypopituitary function. Will discuss with neurology further plans . 09/10. Continue hydrocortisone 10 mg daily. Keppra 750 mg daily. Patient tolerating tube feedings. Discussed with neurology further plans regarding encephalopathy. 09/11. Patient much more verbal this morning. Patient appears to be potentially back to baseline. We will discuss with family. Patient remains in sinus r hythm. No long-term anticoagulation given recent GI bleed, gastric ulcer, anemia and advanced dementia. Continue to monitor H&H and transfuse for hemoglobin less than 7. Continue PPI. 09/12: Continuously removes her supplemental oxygenation and places it on her forehead. Her SPO2 is in the high 90s on room air therefore RN was instructed to decrease oxygenation off. This morning RN was instructed to remove CVL as it is somewhat pulled back and to obtain a peripheral IV. Patient will have her lumbar puncture done today. 09/13: Patient is scheduled for lumbar puncture today. Patient remains on room air no acute events reported overnight. Her CVL has been removed. 09/14: Her viral panel and culture are pending in her CSF analysis. CM is to speak with family regarding discharge as they originally wanted the patient to be discharged home. No acute events reported overnight. 09/15: No acute events reported overnight. This morning we attempted to remove her Montalvo catheter however the patient exhibited urinary retention and the Montalvo catheter was replaced. We anticipate discharge tomorrow if all hospital equipment is provided at home. 09/16: Hypokalemia, repleated. AM BMP, Family updated by Dr. Blood and family requests delay in discharge till all DME arrives and a COVID 19 PCR. Patient is more talkative today but she does not make sense. 09/17. Patient awake- no complaints. Labs reviewed. DC planning underway - possible DC on Saturday. Will need home supplies prior to DC. transaction advisory services manager aware. 09/18. Patient awake- no complaints. Labs reviewed. DC planning underway -poss ible DC on Saturday. Will need home supplies prior to DC. transaction advisory services manager aware. 09/19: Pt DC delayed d/t not having all DME available. No acute events 09/20: Patient sister refused to accept the patient as she does not know how to manage PEG tube feeding. Patient sister requested home health to be in place at the same day of patient getting discharged. Discussed with RN and requested casework manager and home health care social worker to set up home health as requested by the family. Patient clinically stable for discharge. Subjective Date of service: 09/20/20 Principal diagnosis: Acute encephalopathy Objective - Constitutional Vitals: Vital Signs - 12hr 09/20/20 09/20/20 09/20/20 05:21 08:18 09:00 Temperature 97.6 F Pulse Rate 68 73 70 Respiratory 18 Rate Blood Pressure 196/79 192/69 O2 Sat by Pulse 100 Oximetry 09/20/20 09/20/20 09/20/20 10:00 11:40 11:55 Temperature Pulse Rate 78 76 Respiratory 20 Rate Blood Pressure O2 Sat by Pulse Oximetry - Labs CBC & Chem 7: 09/21/20 05:39 09/21/20 05:39 Labs: Abnormal lab results 09/19/20 09/20/20 09/20/20 Range/Units 17:13 05:58 08:16 POC Glucose 67 L 127 H 120 H (70-105) mg/dL 09/20/20 09/20/20 Range/Units 11:38 16:38 POC Glucose 140 H 162 H (70-105) mg/dL HEART Score - HEART Score Troponin: Troponin T 0.075 ng/mL (0.00-0.029) H 08/18/20 18:25 Troponin: 1-3x normal limit - Critical Actions Critical Actions: 4-6 pts:12-16.6% risk of adverse cardiac event. Should be admitted
[2020-09-20] MEDS: ACETAMINOPHEN 325 MG/10.15 ML ORAL LIQD UNIT DOSE FEEDTUBE PRN (22:24)
[2020-09-21] MEDS: INSULIN LISPRO 100 UNIT/ML VIAL 3 mL SUB-Q SCH ×4 (00:28→18:40)
[2020-09-21] MEDS: LEVOTHYROXINE 50 MCG TAB FEEDTUBE SCH (05:28)
[2020-09-21 06:05] LABS: Basophils # (Auto) 0.1 K/mm3 (0.0-0.1); Basophils % (Auto) 0.5 % (0.0-1.8); Eosinophils # (Auto) 0.1 K/mm3 (0.0-0.4); Eosinophils % (Auto) 0.5 % (0.0-4.3); Hematocrit 31.8 % (30.3-42.9); Hemoglobin 10.4 gm/dl (10.1-14.3); Lymphocytes # (Auto) 2.4 K/mm3 (1.2-5.4); Lymphocytes % (Auto) 20.2 % (13.4-35.0); Mean Corpuscular HGB Conc 33 % (30-34); Mean Corpuscular Volume 88 fl (79-97); Monocytes # (Auto) 0.6 K/mm3 (0.0-0.8); Monocytes % (Auto) 5.4 % (0.0-7.3); Platelet Count 384 K/mm3 (140-440); Red Blood Count 3.62 M/mm3 (3.65-5.03); Red Cell Distribution Width 16.2 % (13.2-15.2)
[2020-09-21 06:28] LABS: Blood Urea Nitrogen 11 mg/dL (7-17); Calcium 7.9 mg/dL (8.4-10.2); Hemolysis Index 5
[2020-09-21 06:41] LABS: BUN/Creatinine Ratio 37
--- NOTE | 2020-09-21 07:22 | Progress Note ---
Assessment and Plan Assessment and plan: Sepsis -Patient presented with tachycardia, hypotension, tachypnea, leukocytosis, febrile, acute kidney injury, urinary tract infection -Patient found to have urinary tract infection 11 by urinary analysis -08/18 blood cultures x2 no growth to date -08/18 urine culture no growth to date -Infectious disease consulted,appreciate recommendations -S/p antibiotic therapy Acute toxic metabolic encephalopathy -Possibly secondary to infection versus PAWAN -Patient has baseline dementia -Supportive care -Aspiration/fall precautions -LP pending Extensive skull base meningioma -Noted on CT head -Neurosurgery consulted, appreciate recommendations -No acute intervention indicated at this time per neurosurgery Gastric ulcer, acute -Noted on endoscopy -No active bleeding -Supportive care -PPI Urinary retention, acute -Montalvo catheter had to be placed during hospital stay for urinary retention -09/15 attempted to remove Montalvo catheter however patient still exhibited retention the Montalvo was replaced -Patient will be discharged with Montalvo catheter in place -We will need to follow-up with urology outpatient within 1 to 2 weeks of discharge Elevated D-dimer, acute -D-dimer noted to be 2409.7 and thus empirically started on therapeutic dose anticoagulation. 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 -09/16 repeat COVID ordered at family request Urinary tract infection, resolved -08/18/2020 urinalysis shows trace leukocyte Estrace and pyuria -08/18 urine culture negative -S/p antibiotic therapy Acute kidney injury, resolved -S/p MIVF -Presented with creatinine/BUN of 3.5/55 -Patient's creatinine has trended down to 0.3 and BUN 17 -Avoid nephrotoxic medications -Renally dose medications -Strict urine output -Secondary to vasomotor nephropathy Leukocytosis, resolved -Admit WBC 20.3 -S/p antibiotic therapy -Trend CBC -09/11 WBC 6.6 -Patient is on chronic steroid therapy for Bienville's disease Hypernatremia, resolved -Presented with a sodium of 146 which trended down but then trended back up to 150 and is now 146 -Trend BMP -Free water flush -09/12 Na 143 Hyperchloremia, resolved -Patient's chloride trended up to 119.3 -09/12 chloride 110 -Trend BMP -Free water flush -09/14 Cl 105.6 Acute hypoxic respiratory failure, resolved -Supplemental oxygen as needed -Pulmonary hygiene -SPO2 monitoring GI bleed/hematochezia, resolved -Endoscopic evaluation revealed gastric ulcer. No active bleeding -Supportive care -PPI -S/p PEG tube on tube feedings History Interval history: The patient is an 80-year-old woman with advanced dementia who lives in a residential, Mehran's disease, hypertension, vitamin D deficiency, seizure disorder, and hyperlipidemia who presents the emergency department for altered mental status. On presentation to the emergency room, her white count was markedly elevated at 20,000, low grade fever, PAWAN with BUN 55 and creatinine of 3.5 and elevated Mell as well as meningioma on CT head. Neurosurgery, cardiology, nephrology, heme-onc and infectious disease were consulted. 08/24/2020. Patient still mildly confused. However, I suspect patient has underlying Alzheimer's dementia and this is her baseline. I discussed plan of care and altered mentation with sister at [phone]. Patient will need DME of hospital bed and oxygen for discharge home. Await physical therapy recommendations. 08/25/2020. Patient still lethargic and confused. Patient receiving h ydrocortisone 50 mg IV twice daily for adrenal insufficiency. Check B12, folate and ammonia levels. Neurology consultation pending. Continue supplemental oxygen to maintain sats greater than 92%. 08/26/2020. Encephalopathy likely secondary to toxic metabolic causes in the setting of leukocytosis, improving uremia, renal insufficiency, covid-19, underlying uti. Check CT head without contrast and EEG per neurology recommendations. However may need csf evaluation if brain imaging and eeg are u nremarkable and pt continues to remain encephalopathic. Follow-up cortisol levels and T3-T4. 08/27/2020. Patient remains lethargic and confused. Encephalopathy is persistent and likely secondary to toxic metabolic causes from sepsis, renal insufficiency/uremia, COVID-[address] scan of the head found to be negative. Await EEG. Consider CSF evaluation if EEG unremarkable. Consult GI for further evaluation of hematochezia/GI bleed. Continue Protonix 40 mg IV twice daily. Transfuse for hemoglobin less than 7. Continue to monitor serial CBC. Lovenox discontinued which was empirically started for elevated D-dimer. Patient does have a history of chronic steroids for Bienville's disease. Decrease IV hydrocortisone. Follow-up cortisol levels and T3-T4. I updated the sister and family at [phone]. 08/28/2020. Follow-up EEG per neurology. GI reports if signs of hemodynamic changes, we will proceed with stat bleeding scan. Hemoglobin has dropped to 6.8. Type and cross and transfuse 2 units. Continue to hold anticoagulation. Continue Protonix 40 mg IV twice daily. Nursing reports inability to place NG tube. Place PICC line and start TPN. Dietitian consulted. ? NG tube placement under fluoroscopy. Patient may need PEG tube placement. 08/29/2020. Patient is s/p 3 units PRBCs. Hemoglobin has stabilized to 11.5. Continue to trend and follow serial H/H. Patient remains hemodynamically stable. If patient has a change, we will proceed with stat bleeding scan. GI following. Continue Protonix 40 mg IV twice daily. Continue to hold anticoagulation. Nursing reports inability to place NG tube. PICC line placed to initiate TPN. Dietitian consulted. ? NG tube placement under fluoroscopy. Patient may need PEG tube placement. 08/30/2020. Hemoglobin remained stable. Patient is on TPN and will not be discharged on TPN. NG tube could not be placed as per RN.. Awaiting EEG to rule out any seizures. If no etiology found, patient will benefit from a PEG placement as she has advanced dementia. Continue to hold anticoagulation due to recent GI bleed. GI to reevaluate for PEG placement. 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 Not clear if this is baseline. Need to retrieve her records from previous hospitalization. Neurosurgery consulted for evaluation. 09/01/2020. She is remains confused. Neurology evaluation appreciated. No intervention for brain mass. She is on hydrocortisone for hypopituitary function. Will adjust based on cortisol levels. She will need to have PEG placement for feeds ultimately as she will not be on TPN for a long time. Will reconsult GI for NG tube placement. 09/02. Plan for PEG placement today. She is awake and alert to person only. Vitals stable. 09/03. Had EGD which showed gastritis. Patient will need to have a PEG placement by other means-IR or surgery as per GI. Now on PPI twice daily. Biopsy from gastric ulcer sent. She remains on TPN. Plan to discuss PEG placement IR or surgery. Plan for LP as well. 09/04. Surgery has been consulted for PEG placement. COVID-19 test sent. She remains on TPN. LP still pending 09/05. Patient is awake today but confused. COVID-19 test remains positive. Patients PEG placement may be held for now as per surgery continue Covid infection resolved. She remains on TPN. LP still pending. 09/06. Patient remains confused. COVID-19 test remains positive. Patients PEG placement may be held for now as per surgery continue Covid infection resolved. She remains on TPN. LP still pending. 09/07. Surgery completed laparoscopic-assisted PEG tube placement. Advance tube feeding per dietitian/sheet catcher recommendations. Patient has had optimal rate control without use of significant AV yoan blocking therapy which suggests underlying conduction system disease per cardiology. Cardiology does not recom mend further use of long-term anticoagulation in the setting of recent GI bleed, anemia, AMS and age. I will call the sister to update her regarding care but no answer. Message left. 09/08. Patient tolerating PEG tube feedings. Awaiting LP. Patient remains confused. Continue hydrocortisone for hypopituitary function. Will discuss with neurology further plans . 09/09. Plans for LP to assess confusion. Continue hydrocortisone for hypopituitary function. Will discuss with neurology further plans . 09/10. Continue hydrocortisone 10 mg daily. Keppra 750 mg daily. Patient tolerating tube feedings. Discussed with neurology further plans regarding encephalopathy. 09/11. Patient much more verbal this morning. Patient appears to be potentially back to baseline. We will discuss with family. Patient remains in sinus rhythm. No long-term anticoagulation given recent GI bleed, gastric ulcer, anemia and advanced dementia. Continue to monitor H&H and transfuse for hemoglobin less than 7. Continue PPI. 09/12: Continuously removes her supplemental oxygenation and places it on her f orehead. Her SPO2 is in the high 90s on room air therefore RN was instructed to decrease oxygenation off. This morning RN was instructed to remove CVL as it is somewhat pulled back and to obtain a peripheral IV. Patient will have her lumbar puncture done today. 09/13: Patient is scheduled for lumbar puncture today. Patient remains on room air no acute events reported overnight. Her CVL has been removed. 09/14: Her viral panel and culture are pending in her CSF analysis. CM is to speak with family regarding discharge as they originally wanted the patient to be discharged home. No acute events reported overnight. 09/15: No acute events reported overnight. This morning we attempted to remove her Montalvo catheter however the patient exhibited urinary retention and the Montalvo catheter was replaced. We anticipate discharge tomorrow if all hospital equipment is provided at home. 09/16: Hypokalemia, repleated. AM BMP, Family updated by Dr. Blood and family requests delay in discharge till all DME arrives and a COVID 19 PCR. Patient is more talkative today but she does not make sense. 09/17. Patient awake- no complaints. Labs reviewed. DC planning underway - possible DC on Saturday. Will need home supplies prior to DC. guest relations manager aware. 09/18. Patient awake- no complaints. Labs reviewed. DC planning underway - possible DC on Saturday. Will need home supplies prior to DC. guest relations manager aware. 09/19: Pt DC delayed d/t not having all DME available. No acute events Hospitalist Physical - Physical exam Narrative exam: General appearance: Present: no acute distress - EENT Eyes: Present: PERRL, EOM intact ENT: hearing intact, clear oral mucosa - Neck Neck: Present: normal ROM - Respiratory Respiratory effort: normal Respiratory: bilateral: CTA - Cardiovascular Rhythm: regular Heart Sounds: Present: S1 & S2. Absent: systolic murmur, diastolic murmur - Extremities Extremities: no ischemia, pulses intact, pulses symmetrical, No edema, normal temperature, normal color, Full ROM Peripheral Pulses: within normal limits - Abdominal General gastrointestinal: Present: soft, non-tender, non-distended, normal bowel sounds - Integumentary Integumentary: Present: clear, warm, dry - Musculoskeletal Musculoskeletal: strength equal bilaterally - Psychiatric Psychiatric: appropriate mood/affect, cooperative - Neurologic Neurologic: CNII-XII intact, moves all extremities - Constitutional Vitals: Temp Pulse Resp BP Pulse Ox 97.6 F 71 16 138/60 100 09/21/20 03:25 09/21/20 03:25 09/21/20 03:25 09/21/20 03:25 09/21/20 03:25 General appearance: Present: no acute distress HEART Score - HEART Score Troponin: Troponin T 0.075 ng/mL (0.00-0.029) H 08/18/20 18:25 Troponin: 1-3x normal limit - Critical Actions Critical Actions: 4-6 pts:12-16.6% risk of adverse cardiac event. Should be admitted Results - Labs CBC & Chem 7: 09/21/20 05:39 09/21/20 05:39 Labs: Laboratory Last Values WBC 11.7 K/mm3 (4.5-11.0) H 09/21/20 05:39 RBC 3.62 M/mm3 (3.65-5.03) L 09/21/20 05:39 Hgb 10.4 gm/dl (10.1-14.3) 09/21/20 05:39 Hct 31.8 % (30.3-42.9) 09/21/20 05:39 MCV 88 fl (79-97) 09/21/20 05:39 MCH 29 pg (28-32) 09/21/20 05:39 MCHC 33 % (30-34) 09/21/20 05:39 RDW 16.2 % (13.2-15.2) H 09/21/20 05:39 Plt Count 384 K/mm3 (140-440) 09/21/20 05:39 Lymph % (Auto) 20.2 % (13.4-35.0) 09/21/20 05:39 [place] % (Auto) 5.4 % (0.0-7.3) 09/21/20 05:39 Eos % (Auto) 0.5 % (0.0-4.3) 09/21/20 05:39 Baso % (Auto) 0.5 % (0.0-1.8) 09/21/20 05:39 Lymph # (Auto) 2.4 K/mm3 (1.2-5.4) 09/21/20 05:39 [place] # (Auto) 0.6 K/mm3 (0.0-0.8) 09/21/20 05:39 Eos # (Auto) 0.1 K/mm3 (0.0-0.4) 09/21/20 05:39 Baso # (Auto) 0.1 K/mm3 (0.0-0.1) 09/21/20 05:39 Add Manual Diff Complete 08/31/20 06:20 Total Counted 100 08/31/20 06:20 Seg Neutrophils % 73.4 % (40.0-70.0) H 09/21/20 05:39 Seg Neuts % (Manual) 87.0 % (40.0-70.0) H 08/31/20 06:20 Band Neutrophils % 1.0 % 08/31/20 06:20 Lymphocytes % (Manual) 5.0 % (13.4-35.0) L 08/31/20 06:20 Reactive Lymphs % (Man) 1.0 % 08/28/20 10:07 Monocytes % (Manual) 5.0 % (0.0-7.3) 08/31/20 06:20 Metamyelocytes % 2.0 % 08/31/20 06:20 Nucleated RBC % Not Reportable 08/31/20 06:20 Seg Neutrophils # 8.6 K/mm3 (1.8-7.7) H 09/21/20 05:39 Seg Neutrophils # Man 15.1 K/mm3 (1.8-7.7) H 08/31/20 06:20 Band Neutrophils # 0.2 K/mm3 08/31/20 06:20 Lymphocytes # (Manual) 0.9 K/mm3 (1.2-5.4) L 08/31/20 06:20 Abs React Lymphs (Man) 0.0 K/mm3 08/31/20 06:20 Monocytes # (Manual) 0.9 K/mm3 (0.0-0.8) H 08/31/20 06:20 Eosinophils # (Manual) 0.0 K/mm3 (0.0-0.4) 08/31/20 06:20 Basophils # (Manual) 0.0 K/mm3 (0.0-0.1) 08/31/20 06:20 Metamyelocytes # 0.3 K/mm3 08/31/20 06:20 Myelocytes # 0.0 K/mm3 08/31/20 06:20 Promyelocytes # 0.0 K/mm3 08/31/20 06:20 Blast Cells # 0.0 K/mm3 08/31/20 06:20 WBC Morphology Not Reportable 08/31/20 06:20 Hypersegmented Neuts Not Reportable 08/31/20 06:20 Hyposegmented Neuts Not Reportable 08/31/20 06:20 Hypogranular Neuts Not Reportable 08/31/20 06:20 Smudge Cells Not Reportable 08/31/20 06:20 Toxic Granulation Not Reportable 08/31/20 06:20 Toxic Vacuolation Not Reportable 08/31/20 06:20 Dohle Bodies Not Reportable 08/31/20 06:20 Pelger-Huet Anomaly Not Reportable 08/31/20 06:20 Marie Rods Not Reportable 08/31/20 06:20 Platelet Estimate Consistent w auto 08/31/20 06:20 Clumped Platelets Not Reportable 08/31/20 06:20 Plt Clumps, EDTA Not Reportable 08/31/20 06:20 Large Platelets Not Reportable 08/31/20 06:20 Giant Platelets Not Reportable 08/31/20 06:20 Platelet Satelliting Not Reportable 08/31/20 06:20 Plt Morphology Comment Not Reportable 08/31/20 06:20 RBC Morphology Not Reportable 08/31/20 06:20 Dimorphic RBCs Not Reportable 08/31/20 06:20 Polychromasia Not Reportable 08/31/20 06:20 Hypochromasia Not Reportable 08/31/20 06:20 Poikilocytosis Not Reportable 08/31/20 06:20 Anisocytosis 1+ 08/31/20 06:20 Microcytosis Not Reportable 08/31/20 06:20 Macrocytosis Not Reportable 08/31/20 06:20 Spherocytes Not Reportable 08/31/20 06:20 Pappenheimer Bodies Not Reportable 08/31/20 06:20 Sickle Cells Not Reportable 08/31/20 06:20 Target Cells Not Reportable 08/31/20 06:20 Tear Drop Cells Not Reportable 08/31/20 06:20 Ovalocytes Not Reportable 08/31/20 06:20 Helmet Cells Not Reportable 08/31/20 06:20 [place] Bodies Not Reportable 08/31/20 06:20 [place] Rings Not Reportable 08/31/20 06:20 [place] Cells Not Reportable 08/31/20 06:20 Bite Cells Not Reportable 08/31/20 06:20 Crenated Cell Not Reportable 08/31/20 06:20 Elliptocytes Not Reportable 08/31/20 06:20 Acanthocytes (Spur) Not Reportable 08/31/20 06:20 Rouleaux Not Reportable 08/31/20 06:20 Hemoglobin C Crystals Not Reportable 08/31/20 06:20 Schistocytes Not Reportable 08/31/20 06:20 Malaria parasites Not Reportable 08/31/20 06:20 Payam Bodies Not Reportable 08/31/20 06:20 Hem Pathologist Commnt No 08/31/20 06:20 PT 15.7 Sec. (12.2-14.9) H 09/09/20 09:44 INR 1.25 (0.87-1.13) H 09/09/20 09:44 APTT 45.2 Sec. (24.2-36.6) H 09/09/20 09:44 D-Dimer 2409.74 ng/mlDDU (0-234) H 08/18/20 Unknown Sodium 136 mmol/L (137-145) L 09/21/20 05:39 Potassium 3.2 mmol/L (3.6-5.0) L 09/21/20 05:39 Chloride 96.5 mmol/L (98-107) L 09/21/20 05:39 Carbon Dioxide 37 mmol/L (22-30) H D 09/21/20 05:39 Anion Gap 6 mmol/L 09/21/20 05:39 BUN 11 mg/dL (7-17) 09/21/20 05:39 Creatinine 0.3 mg/dL (0.6-1.2) L 09/21/20 05:39 Estimated GFR > 60 ml/min 09/21/20 05:39 BUN/Creatinine Ratio 37 % 09/21/20 05:39 Glucose 154 mg/dL (65-100) H 09/21/20 05:39 POC Glucose 167 mg/dL (70-105) H 09/20/20 23:24 Lactic Acid 1.00 mmol/L (0.7-2.0) 08/18/20 18:25 Calcium 7.9 mg/dL (8.4-10.2) L 09/21/20 05:39 Phosphorus 5.50 mg/dL (2.5-4.5) H 09/08/20 04:52 Magnesium 2.10 mg/dL (1.7-2.3) 09/08/20 04:52 Ferritin 1950.0 ng/mL (10.0-200.0) H 08/18/20 15:35 Total Bilirubin 0.50 mg/dL (0.1-1.2) 09/04/20 05:57 AST 11 units/L (5-40) 09/04/20 05:57 ALT 8 units/L (7-56) 09/04/20 05:57 Alkaline Phosphatase 59 units/L (35-129) 09/04/20 05:57 Ammonia 32.0 umol/L (25-60) 08/25/20 09:06 Lactate Dehydrogenase 228 units/L (91-180) H 08/18/20 15:35 Total Creatine Kinase 164 units/L (30-135) H 08/22/20 19:44 Troponin T 0.075 ng/mL (0.00-0.029) H 08/18/20 18:25 C-Reactive Protein 35.60 mg/dL (0.00-1.30) H 08/18/20 15:35 Total Protein 4.2 g/dL (6.3-8.2) L 09/04/20 05:57 Albumin 2.5 g/dL (3.9-5) L 09/04/20 05:57 Albumin/Globulin Ratio 1.5 % 09/04/20 05:57 Triglycerides 70 mg/dL (2-149) 08/31/20 06:20 Cholesterol 79 mg/dL (50-199) 08/18/20 18:25 LDL Cholesterol Direct 42 mg/dL (50-130) L 08/18/20 18:25 HDL Cholesterol 23 mg/dL (40-59) L 08/18/20 18:25 Cholesterol/HDL Ratio 3.43 % 08/18/20 18:25 Vitamin B12 721.0 pg/mL (211-911) 08/25/20 09:06 Folate 8.34 ng/mL (7.3-26.0) 08/25/20 09:06 Procalcitonin 4.00 ng/mL (<0.15) 08/18/20 15:35 TSH 0.056 mlU/mL (0.270-4.200) L 08/24/20 17:02 Free T4 1.59 ng/dL (0.76-1.46) H 08/26/20 10:22 Free T3 Index 1.2 pg/mL (2.3-4.2) L 08/26/20 10:22 Total Cortisol 37.6 mcg/dL () 09/02/20 05:30 Urine Color Yellow (Yellow) 09/08/20 06:14 Urine Turbidity Turbid (Clear) 09/08/20 06:14 Urine pH 5.0 (5.0-7.0) 09/08/20 06:14 Ur Specific [place] 1.009 (1.003-1.030) 09/08/20 06:14 Urine Protein 100 mg/dl mg/dL (Negative) 09/08/20 06:14 Urine Glucose (UA) Neg mg/dL (Negative) 09/08/20 06:14 Urine Ketones Neg mg/dL (Negative) 09/08/20 06:14 Urine Blood Lg (Negative) 09/08/20 06:14 Urine Nitrite Neg (Negative) 09/08/20 06:14 Urine Bilirubin Neg (Negative) 09/08/20 06:14 Urine Urobilinogen < 2.0 mg/dL (<2.0) 09/08/20 06:14 Ur Leukocyte Esterase Mod (Negative) 09/08/20 06:14 Urine WBC (Auto) > 182.0 /HPF (0.0-6.0) H 09/08/20 06:14 Urine RBC (Auto) > 182.0 /HPF (0.0-6.0) 09/08/20 06:14 U Epithel Cells (Auto) 1.0 /HPF (0-13.0) 08/18/20 Unknown Urine Bacteria (Auto) 4+ /HPF (Negative) 09/08/20 06:14 Urine WBC Clumps 3+ /HPF 09/08/20 06:14 Urine Mucus 1+ /HPF 09/08/20 06:14 Ur Yeast w Hyphae 2+ /HPF 09/08/20 06:14 Urine Yeast (Budding) 2+ /HPF 09/08/20 06:14 CSF Appearance Clear 09/13/20 Unknown CSF Color Colorless 09/13/20 Unknown CSF WBC 2 /mm3 (1-10) 09/13/20 Unknown CSF RBC 2 /mm3 (0-0) 09/13/20 Unknown CSF Seg Neutrophils 0 % (0-6) 09/13/20 Unknown CSF Lymphocytes % 1 % (40-80) 09/13/20 Unknown CSF Reactive Lymphs 0 % 09/13/20 Unknown CSF Monocytes % 0 % (15-45) 09/13/20 Unknown CSF Eosinophils % 0 % 09/13/20 Unknown CSF Basophils 0 % 09/13/20 Unknown CSF Pathologist Review C 09/13/20 Unknown CSF Glucose 53 mg/dL 09/13/20 Unknown CSF Total Protein 49 mg/dL 09/13/20 Unknown CSF VDRL Nonreactive (Nonreactive) 09/13/20 Unknown Random Vancomycin 9.8 ug/mL (0-40.0) 08/19/20 19:02 Coronavirus (PCR) Negative (Negative) 09/17/20 Unknown Enterovirus (PCR) Cmmt See scanned result 09/13/20 Unknown HSV I DNA PCR See scanned result 09/13/20 Unknown HSV II DNA PCR See scanned result 09/13/20 Unknown VZV (Qnt-PCR) See scanned result 09/13/20 Unknown Blood Type O POSITIVE 08/27/20 20:44 Antibody Screen Negative 08/27/20 20:44 Crossmatch See Detail 08/27/20 20:44 Montalvo/IV: Voiding Method Indwelling Catheter IV Catheter Type [Right INT / Saline Lock Forearm] IV Catheter Type [Left Forearm INT / Saline Lock ] IV Catheter Type [Left Hand] INT / Saline Lock IV Catheter Type [Left Triple Lumen Cath Internal Jugular] IV Catheter Type [Left] CVL Active Medications - Current Medications Current Medications: Generic Name Dose Route Start Last Admin Trade Name Freq PRN Reason Stop Dose Admin Acetaminophen 650 mg 09/07/20 19:17 09/20/20 22:24 Acetaminophen 325 Mg/10.15 Ml Oral Liqd Unit Dose FEEDTUBE 650 mg Q6H PRN Administration Pain, Mild (1-3) Amlodipine Besylate 10 mg 09/19/20 12:00 09/20/20 11:40 Amlodipine 10 Mg Tab PO 10 mg DAILY BARBARA Administration Lipase/Protease/Amylase 1 each 09/06/20 19:27 Lipase 10,500/Protease 25,000/Amylase 43,750 (Units) Dr Fernandez FEEDTUBE PRN PRN For Clogged Feeding Tube Atorvastatin Calcium 20 mg 09/12/20 22:00 09/20/20 22:24 Atorvastatin 20 Mg Tab PO 20 mg QHS BARBARA Administration Clonidine HCl 0.2 mg 08/31/20 22:00 09/14/20 23:12 Clonidine Tts 0.2 Mg/24 Hr Patch TD 0.2 mg We BARBARA Administration Cyanocobalamin 1,000 mcg 09/12/20 10:00 09/20/20 11:47 Cyanocobalamin (Vit B-12) 1000 Mcg Tab PO 1,000 mcg DAILY BARBARA Administration Folic Acid 1 mg 09/12/20 10:00 09/20/20 11:47 Folic Acid 1 Mg Tab PO 1 mg DAILY BARBARA Administration Hydralazine HCl 5 mg 08/31/20 21:22 09/20/20 05:21 Hydralazine 20 Mg/1 Ml Inj IV 5 mg Q4H PRN Administration Blood Pressure Hydrocortisone Acetate 10 mg 09/07/20 22:00 09/20/20 22:24 Hydrocortisone 10 Mg Tab FEEDTUBE 10 mg Q12HR BARBARA Administration Insulin Glargine 5 units 09/03/20 22:00 09/20/20 22:24 Insulin Glargine 100 Units/Ml SUB-Q 5 units BID BARBARA Administration Insulin Human Lispro 0 unit 09/07/20 12:00 09/21/20 00:28 Insulin Lispro 100 Unit/Ml Vial 3 Ml SUB-Q Not Given Q6H [facility] Protocol Lansoprazole 30 mg 09/08/20 10:00 09/20/20 11:46 Lansoprazole 30 Mg Solutab FEEDTUBE 30 mg QDAY BARBARA Administration Levetiracetam 750 mg 09/07/20 22:00 09/20/20 22:24 Levetiracetam 500 Mg/5 Ml Oral Liqd FEEDTUBE 750 mg BID BARBARA Administration Levothyroxine Sodium 50 mcg 09/08/20 06:00 09/21/20 05:28 Levothyroxine 50 Mcg Tab FEEDTUBE 50 mcg DAILY@0600 BARBARA Administration Lisinopril 20 mg 09/14/20 10:00 09/20/20 11:55 Lisinopril 20 Mg Tab PO 20 mg QDAY BARBARA Administration Ondansetron HCl 4 mg 09/07/20 19:17 Ondansetron 4 Mg/2 Ml Inj IV Q8H PRN Nausea Simple Syrup 15 ml 09/06/20 19:27 09/11/20 23:38 Simple Syrup 15 Ml FEEDTUBE 15 ml PRN PRN Administration Hypoglycemia Simple Syrup 30 ml 09/06/20 19:27 Simple Syrup 15 Ml FEEDTUBE PRN PRN Hypoglycemia Sodium Bicarbonate 325 mg 09/06/20 19:27 Sodium Bicarbonate 325 Mg Tab FEEDTUBE PRN PRN For Clogged Feeding Tube Nutrition/Malnutrition Assess - Dietary Evaluation Nutrition/Malnutrition Findings: Nutrition Notes Start: 08/23/20 10:57 Freq: Status: Active Protocol: Document 09/20/20 14:31 EN (Rec: 09/20/20 14:35 EN [id number]) Co-Sign 09/20/20 14:31 MK Nutrition Notes Initial or Follow up Reassessment Current Diagnosis Acute Kidney Injury,Diabetes, Sepsis Other Pertinent Diagnosis Encephalopathy, COVID-19 (+), GIB, UTI, gastric ulcer, gastritis, AMS Current Diet Jevity 1.2 at 50ml/hr Labs/Tests POC BG 140 Pertinent Medications Vitamin B 12 Height 5 ft 5 in Weight 91.9 kg [place] Body Weight (kg) 56.81 BMI 33.7 Weight change and time frame Wt gain likely edema. Weight Status Overweight Subjective/Other Information F/u for TF tolerance and BG labs. Per RN, pt tolerating TF at goal rate. Percent of energy/protein needs met: 92%/83% Burn Absent Trauma Absent GI Symptoms None Current % PO Negligible Minimum of two criteria No Fluid Accumulation Mild (non-severe) #2 Nutrition Diagnosis Increased nutrient needs ( specify in comment below) Diagnosis Progress(for reassessment Continues documentation) #1 Nutrition Diagnosis Inadequate oral intake Diagnosis Progress(for reassessment Continues documentation) Is patient on ventilator? No Is Patient Ambulatory and/or Out of Bed No REE[facility]) 1662.624 Kcal/Kg value to use for calculation 17 Approximate Energy Requirements Using 1562 kcal/Kg Calculation Used for Recommendations Kcal/kg Additional Notes Protein: 81-97 g 1-1.2 g/kg) Fluid needs 1ml/kcal Nutrition Intervention Change Diet Order: Continue TF Nutrition Support: Jevity 1.2 at 50ml/hr Flush with 100ml q4h Kcal 1,440 Protein (gm) 67 Fluid (mL) 968 Goal #1 Meet at least 80% of kcal and protein needs Anticipated Discharge Needs: TF Follow-Up By: 09/23/20 Additional Comments F/u for TF tolerance, wt and BG labs
[2020-09-21] MEDS: CYANOCOBALAMIN (VIT B-12) 1000 MCG TAB PO SCH (10:25)
[2020-09-21] MEDS: levETIRAcetam 500 MG/5 ML ORAL LIQD FEEDTUBE SCH ×2 (10:25→22:22)
[2020-09-21] MEDS: LANSOPRAZOLE 30 MG SOLUTAB FEEDTUBE SCH (10:25)
[2020-09-21] MEDS: FOLIC ACID 1 MG TAB PO SCH (10:26)
[2020-09-21] MEDS: INSULIN GLARGINE 100 UNITS/ML SUB-Q SCH ×2 (10:26→22:24)
[2020-09-21] MEDS: amLODIPine 10 MG TAB PO SCH (10:26)
[2020-09-21] MEDS: LISINOPRIL 20 MG TAB PO SCH (10:26)
[2020-09-21] MEDS ORDERED: POTASSIUM CHLORIDE 20 MEQ PACKET FEEDTUBE ONE ×2 (14:19→20:25)
--- NOTE | 2020-09-21 15:08 | Progress Note ---
<SCAR CHARLES - Last Filed: 09/21/20 15:17> Assessment and Plan Assessment and plan: Sepsis -Patient presented with tachycardia, hypotension, tachypnea, leukocytosis, febrile, acute kidney injury, urinary tract infection -Patient found to have urinary tract infection 11 by urinary analysis -08/18 blood cultures x2 no growth to date -08/18 urine culture no growth to date -Infectious disease consulted,appreciate recommendations -S/p antibiotic therapy Acute toxic metabolic encephalopathy -Possibly secondary to infection versus PAWAN -Patient has baseline dementia -Supportive care -Aspiration/fall precautions -LP negative for infective process Extensive skull base meningioma -Noted on CT head -Neurosurgery consulted, appreciate recommendations -No acute intervention indicated at this time per neurosurgery Gastric ulcer, acute -Noted on endoscopy -No active bleeding -Supportive care -PPI Leukocytosis -2/3 WBC 11.7 -Trend CBC -Monitor for sx of infection Hyponatremia -2/3 sodium 136 -Trend BMP -Free water flush for TF per nutrition Hypochloremia -2/3 chloride 96.5 -Trend BMP Metabolic alkalosis -2/3 CO2 BMP 37 -Trend BMP -Patient is on room air Urinary retention, acute -Montalvo catheter had to be placed during hospital stay for urinary retention -09/15 attempted to remove Montalvo catheter however patient still exhibited retention the Montalvo was replaced -Patient will be discharged with Montalvo catheter in place -We will need to follow-up with urology outpatient within 1 to 2 weeks of discharge Elevated D-dimer, acute -D-dimer noted to be 2409.7 and thus empirically started on therapeutic dose ant icoagulation. -Patient developed GI bleed and therapeutic anticoagulation was stopped History of COVID-19, remote/acute -COVID-19 PCR is positive on 08/19, 09/03, 09/04 -Patient was recently discharged from [facility] prior to admission after treatment for COVID-19 pneumonia -09/16 family requested a repeated COVID 19 test Seizure disorder, chronic -Resume home Keppra -Seizure precautions -Supportive care [place]'s disease, chronic -On chronic steroids, slightly immunocompromised host Hypertension, chronic -Patient presented with hypotension -Resume home antihypertensive regimen and adjust as needed when appropriate -Blood pressure monitoring per protocol DVT prophylaxis -SCDs to bilateral lower extremities while in bed -Chemical prophylaxis contraindicated secondary to acute GI bleed Disposition -PT/OT has recommended SNF placement however the patient's family refuses -Home health services and DME has been ordered to be delivered to resident -Discharge pending delivery of DME to residence. -09/16 repeat COVID ordered at family request Urinary tract infection, resolved -08/18/2020 urinalysis shows trace leukocyte Estrace and pyuria -08/18 urine culture negative -S/p antibiotic therapy Acute kidney injury, resolved -S/p MIVF -Presented with creatinine/BUN of 3.5/55 -Patient's creatinine has trended down to 0.3 and BUN 17 -Avoid nephrotoxic medications -Renally dose medications -Strict urine output -Secondary to vasomotor nephropathy Leukocytosis, resolved -Admit WBC 20.3 -S/p antibiotic therapy -Trend CBC -09/11 WBC 6.6 -Patient is on chronic steroid therapy for Mehran's disease Hypernatremia, resolved -Presented with a sodium of 146 which trended down but then trended back up to 150 and is now 146 -Trend BMP -Free water flush -09/12 Na 143 Hyperchloremia, resolved -Patient's chloride trended up to 119.3 -09/12 chloride 110 -Trend BMP -Free water flush -09/14 Cl 105.6 Acute hypoxic respiratory failure, resolved -Supplemental oxygen as needed -Pulmonary hygiene -SPO2 monitoring GI bleed/hematochezia, resolved -Endoscopic evaluation revealed gastric ulcer. No active bleeding -Supportive care -PPI -S/p PEG tube on tube feedings History Interval history: The patient is an 80-year-old woman with advanced dementia who lives in a care home, [place]'s disease, hypertension, vitamin D deficiency, seizure disorder, and hyperlipidemia who presents the emergency department for altered mental status. On presentation to the emergency room, her white count was markedly elevated at 20,000, low grade fever, PAWAN with BUN 55 and creatinine of 3.5 and elevated Mell as well as meningioma on CT head. Neurosurgery, card iology, nephrology, heme-onc and infectious disease were consulted. 08/24/2020. Patient still mildly confused. However, I suspect patient has underlying Alzheimer's dementia and this is her baseline. I discussed plan of care and altered mentation with sister at [phone]. Patient will need DME of hospital bed and oxygen for discharge home. Await physical therapy recommendations. 08/25/2020. Patient still lethargic and confused. Patient receiving hydrocortisone 50 mg IV twice daily for adrenal insufficiency. Check B12, folate and ammonia levels. Neurology consultation pending. Continue supplemental oxygen to maintain sats greater than 92%. 08/26/2020. Encephalopathy likely secondary to toxic metabolic causes in the setting of leukocytosis, improving uremia, renal insufficiency, covid-19, underlying uti. Check CT head without contrast and EEG per neurology recommendations. However may need csf evaluation if brain imaging and eeg are unremarkable and pt continues to remain encephalopathic. Follow-up cortisol levels and T3-T4. 08/27/2020. Patient remains lethargic and confused. Encephalopathy is persistent and likely secondary to toxic metabolic causes from sepsis, renal insufficiency/uremia, COVID-[address] scan of the head found to be negative. Await EEG. Consider CSF evaluation if EEG unremarkable. Consult GI for further evaluation of hematochezia/GI bleed. Continue Protonix 40 mg IV twice daily. Transfuse for hemoglobin less than 7. Continue to monitor serial CBC. Lovenox discontinued which was empirically started for elevated D-dimer. Patient does have a history of chronic steroids for [place]'s disease. Decrease IV hydrocortisone. Follow-up cortisol levels and T3-T4. I updated the sister and family at [phone]. 08/28/2020. Follow-up EEG per neurology. GI reports if signs of hemodynamic changes, we will proceed with stat bleeding scan. Hemoglobin has dropped to 6.8. Type and cross and transfuse 2 units. Continue to hold anticoagulation. Continue Protonix 40 mg IV twice daily. Nursing reports inability to place NG tube. Place PICC line and start TPN. Dietitian consulted. ? NG tube placement under fluoroscopy. Patient may need PEG tube placement. 08/29/2020. Patient is s/p 3 units PRBCs. Hemoglobin has stabilized to 11.5. Continue to trend and follow serial H/H. Patient remains hemodynamically stabl e. If patient has a change, we will proceed with stat bleeding scan. GI following. Continue Protonix 40 mg IV twice daily. Continue to hold anticoagulation. Nursing reports inability to place NG tube. PICC line placed to initiate TPN. Dietitian consulted. ? NG tube placement under fluoroscopy. Patient may need PEG tube placement. 08/30/2020. Hemoglobin remained stable. Patient is on TPN and will not be discharged on TPN. NG tube could not be placed as per RN.. Awaiting EEG to rule out any seizures. If no etiology found, patient will benefit from a PEG placement as she has advanced dementia. Continue to hold anticoagulation due to recent GI bleed. GI to reevaluate for PEG placement. 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 Not clear if this is baseline. Need to retrieve her records from previous hospitalization. Neurosurgery consulted for evaluation. 09/01/2020. She is remains confused. Neurology evaluation appreciated. No inter vention for brain mass. She is on hydrocortisone for hypopituitary function. Will adjust based on cortisol levels. She will need to have PEG placement for feeds ultimately as she will not be on TPN for a long time. Will reconsult GI for NG tube placement. 09/02. Plan for PEG placement today. She is awake and alert to person only. Vitals stable. 09/03. Had EGD which showed gastritis. Patient will need to have a PEG placement by other means-IR or surgery as per GI. Now on PPI twice daily. Bi opsy from gastric ulcer sent. She remains on TPN. Plan to discuss PEG placement IR or surgery. Plan for LP as well. 09/04. Surgery has been consulted for PEG placement. COVID-19 test sent. She claus ins on TPN. LP still pending 09/05. Patient is awake today but confused. COVID-19 test remains positive. Patients PEG placement may be held for now as per surgery continue Covid infection resolved. She remains on TPN. LP still pending. 09/06. Patient remains confused. COVID-19 test remains positive. Patients PEG placement may be held for now as per surgery continue Covid infection resolved. She remains on TPN. LP still pending. 09/07. Surgery completed laparoscopic-assisted PEG tube placement. Advance tube feeding per dietitian/asbestos shingle inspector recommendations. Patient has had optimal rate control without use of significant AV yoan blocking therapy which suggests underlying conduction system disease per cardiology. Cardiology does not recommend further use of long-term anticoagulation in the setting of recent GI bleed, anemia, AMS and age. I will call the sister to update her regarding care but no answer. Message left. 09/08. Patient tolerating PEG tube feedings. Awaiting LP. Patient remains confused. Continue hydrocortisone for hypopituitary function. Will discuss with neurology further plans . 09/09. Plans for LP to assess confusion. Continue hydrocortisone for hypopituitary function. Will discuss with neurology further plans . 09/10. Continue hydrocortisone 10 mg daily. Keppra 750 mg daily. Patient tolerating tube feedings. Discussed with neurology further plans regarding encephalopathy. 09/11. Patient much more verbal this morning. Patient appears to be potentially back to baseline. We will discuss with family. Patient remains in sinus rhythm . No long-term anticoagulation given recent GI bleed, gastric ulcer, anemia and advanced dementia. Continue to monitor H&H and transfuse for hemoglobin less than 7. Continue PPI. 09/12: Continuously removes her supplemental oxygenation and places it on her forehead. Her SPO2 is in the high 90s on room air therefore RN was instructed to decrease oxygenation off. This morning RN was instructed to remove CVL as it is somewhat pulled back and to obtain a peripheral IV. Patient will have her lo mbar puncture done today. 09/13: Patient is scheduled for lumbar puncture today. Patient remains on room air no acute events reported overnight. Her CVL has been removed. 09/14: Her viral panel and culture are pending in her CSF analysis. CM is to speak with family regarding discharge as they originally wanted the patient to be discharged home. No acute events reported overnight. 09/15: No acute events reported overnight. This morning we attempted to remove her Montalvo catheter however the patient exhibited urinary retention and the Montalvo catheter was replaced. We anticipate discharge tomorrow if all hospital equipment is provided at home. 09/16: Hypokalemia, repleated. AM BMP, Family updated by Dr. Blood and family requests delay in discharge till all DME arrives and a COVID 19 PCR. Patient is more talkative today but she does not make sense. 09/17. Patient awake- no complaints. Labs reviewed. DC planning underway - possible DC on Saturday. Will need home supplies prior to DC. manager of employee relations aware. 09/18. Patient awake- no complaints. Labs reviewed. DC planning underway - possible DC on Saturday. Will need home supplies prior to DC. manager of employee relations aware. 09/19: Pt DC delayed d/t not having all DME available. No acute events 2/2: Pt DC delayed d/t not having all DME available. No acute events 2/3: Pt DC delayed d/t not having all DME available. No acute events Hospitalist Physical - Constitutional Vitals: Temp Pulse Resp BP Pulse Ox 98.1 F 79 18 152/73 100 09/21/20 11:04 09/21/20 11:04 09/21/20 11:04 09/21/20 11:04 09/21/20 11:04 General appearance: Present: no acute distress - EENT Eyes: Present: PERRL, EOM intact ENT: clear oral mucosa, hearing decreased - Neck Neck: Present: normal ROM - Respiratory Respiratory effort: normal Respiratory: bilateral: CTA, diminished - Cardiovascular Rhythm: regular Heart Sounds: Present: S1 & S2. Absent: systolic murmur, diastolic murmur - Extremities Extremities: no ischemia, pulses intact, pulses symmetrical, No edema, normal temperature, normal color, Full ROM Peripheral Pulses: within normal limits - Abdominal General gastrointestinal: soft, non-tender, non-distended, normal bowel sounds - Integumentary Integumentary: Present: clear, warm, dry - Psychiatric Psychiatric: cooperative - Neurologic Neurologic: CNII-XII intact, no focal deficits, moves all extremities - Allied Health Allied health notes reviewed: nursing, social work, case management HEART Score - HEART Score Troponin: Troponin T 0.075 ng/mL (0.00-0.029) H 08/18/20 18:25 Troponin: 1-3x normal limit - Critical Actions Critical Actions: 4-6 pts:12-16.6% risk of adverse cardiac event. Should be admi tted Results - Labs CBC & Chem 7: 09/21/20 05:39 09/21/20 05:39 Labs: Laboratory Last Values WBC 11.7 K/mm3 (4.5-11.0) H 09/21/20 05:39 RBC 3.62 M/mm3 (3.65-5.03) L 09/21/20 05:39 Hgb 10.4 gm/dl (10.1-14.3) 09/21/20 05:39 Hct 31.8 % (30.3-42.9) 09/21/20 05:39 MCV 88 fl (79-97) 09/21/20 05:39 MCH 29 pg (28-32) 09/21/20 05:39 MCHC 33 % (30-34) 09/21/20 05:39 RDW 16.2 % (13.2-15.2) H 09/21/20 05:39 Plt Count 384 K/mm3 (140-440) 09/21/20 05:39 Lymph % (Auto) 20.2 % (13.4-35.0) 09/21/20 05:39 Dane % (Auto) 5.4 % (0.0-7.3) 09/21/20 05:39 Eos % (Auto) 0.5 % (0.0-4.3) 09/21/20 05:39 Baso % (Auto) 0.5 % (0.0-1.8) 09/21/20 05:39 Lymph # (Auto) 2.4 K/mm3 (1.2-5.4) 09/21/20 05:39 Dane # (Auto) 0.6 K/mm3 (0.0-0.8) 09/21/20 05:39 Eos # (Auto) 0.1 K/mm3 (0.0-0.4) 09/21/20 05:39 Baso # (Auto) 0.1 K/mm3 (0.0-0.1) 09/21/20 05:39 Add Manual Diff Complete 08/31/20 06:20 Total Counted 100 08/31/20 06:20 Seg Neutrophils % 73.4 % (40.0-70.0) H 09/21/20 05:39 Seg Neuts % (Manual) 87.0 % (40.0-70.0) H 08/31/20 06:20 Band Neutrophils % 1.0 % 08/31/20 06:20 Lymphocytes % (Manual) 5.0 % (13.4-35.0) L 08/31/20 06:20 Reactive Lymphs % (Man) 1.0 % 08/28/20 10:07 Monocytes % (Manual) 5.0 % (0.0-7.3) 08/31/20 06:20 Metamyelocytes % 2.0 % 08/31/20 06:20 Nucleated RBC % Not Reportable 08/31/20 06:20 Seg Neutrophils # 8.6 K/mm3 (1.8-7.7) H 09/21/20 05:39 Seg Neutrophils # Man 15.1 K/mm3 (1.8-7.7) H 08/31/20 06:20 Band Neutrophils # 0.2 K/mm3 08/31/20 06:20 Lymphocytes # (Manual) 0.9 K/mm3 (1.2-5.4) L 08/31/20 06:20 Abs React Lymphs (Man) 0.0 K/mm3 08/31/20 06:20 Monocytes # (Manual) 0.9 K/mm3 (0.0-0.8) H 08/31/20 06:20 Eosinophils # (Manual) 0.0 K/mm3 (0.0-0.4) 08/31/20 06:20 Basophils # (Manual) 0.0 K/mm3 (0.0-0.1) 08/31/20 06:20 Metamyelocytes # 0.3 K/mm3 08/31/20 06:20 Myelocytes # 0.0 K/mm3 08/31/20 06:20 Promyelocytes # 0.0 K/mm3 08/31/20 06:20 Blast Cells # 0.0 K/mm3 08/31/20 06:20 WBC Morphology Not Reportable 08/31/20 06:20 Hypersegmented Neuts Not Reportable 08/31/20 06:20 Hyposegmented Neuts Not Reportable 08/31/20 06:20 Hypogranular Neuts Not Reportable 08/31/20 06:20 Smudge Cells Not Reportable 08/31/20 06:20 Toxic Granulation Not Reportable 08/31/20 06:20 Toxic Vacuolation Not Reportable 08/31/20 06:20 Dohle Bodies Not Reportable 08/31/20 06:20 Pelger-Huet Anomaly Not Reportable 08/31/20 06:20 Marie Rods Not Reportable 08/31/20 06:20 Platelet Estimate Consistent w auto 08/31/20 06:20 Clumped Platelets Not Reportable 08/31/20 06:20 Plt Clumps, EDTA Not Reportable 08/31/20 06:20 Large Platelets Not Reportable 08/31/20 06:20 Giant Platelets Not Reportable 08/31/20 06:20 Platelet Satelliting Not Reportable 08/31/20 06:20 Plt Morphology Comment Not Reportable 08/31/20 06:20 RBC Morphology Not Reportable 08/31/20 06:20 Dimorphic RBCs Not Reportable 08/31/20 06:20 Polychromasia Not Reportable 08/31/20 06:20 Hypochromasia Not Reportable 08/31/20 06:20 Poikilocytosis Not Reportable 08/31/20 06:20 Anisocytosis 1+ 08/31/20 06:20 Microcytosis Not Reportable 08/31/20 06:20 Macrocytosis Not Reportable 08/31/20 06:20 Spherocytes Not Reportable 08/31/20 06:20 Pappenheimer Bodies Not Reportable 08/31/20 06:20 Sickle Cells Not Reportable 08/31/20 06:20 Target Cells Not Reportable 08/31/20 06:20 Tear Drop Cells Not Reportable 08/31/20 06:20 Ovalocytes Not Reportable 08/31/20 06:20 Helmet Cells Not Reportable 08/31/20 06:20 [place] Bodies Not Reportable 08/31/20 06:20 [place] Rings Not Reportable 08/31/20 06:20 [place] Cells Not Reportable 08/31/20 06:20 Bite Cells Not Reportable 08/31/20 06:20 Crenated Cell Not Reportable 08/31/20 06:20 Elliptocytes Not Reportable 08/31/20 06:20 Acanthocytes (Spur) Not Reportable 08/31/20 06:20 Rouleaux Not Reportable 08/31/20 06:20 Hemoglobin C Crystals Not Reportable 08/31/20 06:20 Schistocytes Not Reportable 08/31/20 06:20 Malaria parasites Not Reportable 08/31/20 06:20 [place]am Bodies Not Reportable 08/31/20 06:20 Hem Pathologist Commnt No 08/31/20 06:20 PT 15.7 Sec. (12.2-14.9) H 09/09/20 09:44 INR 1.25 (0.87-1.13) H 09/09/20 09:44 APTT 45.2 Sec. (24.2-36.6) H 09/09/20 09:44 D-Dimer 2409.74 ng/mlDDU (0-234) H 08/18/20 Unknown Sodium 136 mmol/L (137-145) L 09/21/20 05:39 Potassium 3.2 mmol/L (3.6-5.0) L 09/21/20 05:39 Chloride 96.5 mmol/L (98-107) L 09/21/20 05:39 Carbon Dioxide 37 mmol/L (22-30) H D 09/21/20 05:39 Anion Gap 6 mmol/L 09/21/20 05:39 BUN 11 mg/dL (7-17) 09/21/20 05:39 Creatinine 0.3 mg/dL (0.6-1.2) L 09/21/20 05:39 Estimated GFR > 60 ml/min 09/21/20 05:39 BUN/Creatinine Ratio 37 % 09/21/20 05:39 Glucose 154 mg/dL (65-100) H 09/21/20 05:39 POC Glucose 130 mg/dL (70-105) H 09/21/20 11:03 Lactic Acid 1.00 mmol/L (0.7-2.0) 08/18/20 18:25 Calcium 7.9 mg/dL (8.4-10.2) L 09/21/20 05:39 Phosphorus 5.50 mg/dL (2.5-4.5) H 09/08/20 04:52 Magnesium 2.10 mg/dL (1.7-2.3) 09/08/20 04:52 Ferritin 1950.0 ng/mL (10.0-200.0) H 08/18/20 15:35 Total Bilirubin 0.50 mg/dL (0.1-1.2) 09/04/20 05:57 AST 11 units/L (5-40) 09/04/20 05:57 ALT 8 units/L (7-56) 09/04/20 05:57 Alkaline Phosphatase 59 units/L (35-129) 09/04/20 05:57 Ammonia 32.0 umol/L (25-60) 08/25/20 09:06 Lactate Dehydrogenase 228 units/L (91-180) H 08/18/20 15:35 Total Creatine Kinase 164 units/L (30-135) H 08/22/20 19:44 Troponin T 0.075 ng/mL (0.00-0.029) H 08/18/20 18:25 C-Reactive Protein 35.60 mg/dL (0.00-1.30) H 08/18/20 15:35 Total Protein 4.2 g/dL (6.3-8.2) L 09/04/20 05:57 Albumin 2.5 g/dL (3.9-5) L 09/04/20 05:57 Albumin/Globulin Ratio 1.5 % 09/04/20 05:57 Triglycerides 70 mg/dL (2-149) 08/31/20 06:20 Cholesterol 79 mg/dL (50-199) 08/18/20 18:25 LDL Cholesterol Direct 42 mg/dL (50-130) L 08/18/20 18:25 HDL Cholesterol 23 mg/dL (40-59) L 08/18/20 18:25 Cholesterol/HDL Ratio 3.43 % 08/18/20 18:25 Vitamin B12 721.0 pg/mL (211-911) 08/25/20 09:06 Folate 8.34 ng/mL (7.3-26.0) 08/25/20 09:06 Procalcitonin 4.00 ng/mL (<0.15) 08/18/20 15:35 TSH 0.056 mlU/mL (0.270-4.200) L 08/24/20 17:02 Free T4 1.59 ng/dL (0.76-1.46) H 08/26/20 10:22 Free T3 Index 1.2 pg/mL (2.3-4.2) L 08/26/20 10:22 Total Cortisol 37.6 mcg/dL () 09/02/20 05:30 Urine Color Yellow (Yellow) 09/08/20 06:14 Urine Turbidity Turbid (Clear) 09/08/20 06:14 Urine pH 5.0 (5.0-7.0) 09/08/20 06:14 Ur Specific Ragland 1.009 (1.003-1.030) 09/08/20 06:14 Urine Protein 100 mg/dl mg/dL (Negative) 09/08/20 06:14 Urine Glucose (UA) Neg mg/dL (Negative) 09/08/20 06:14 Urine Ketones Neg mg/dL (Negative) 09/08/20 06:14 Urine Blood Lg (Negative) 09/08/20 06:14 Urine Nitrite Neg (Negative) 09/08/20 06:14 Urine Bilirubin Neg (Negative) 09/08/20 06:14 Urine Urobilinogen < 2.0 mg/dL (<2.0) 09/08/20 06:14 Ur Leukocyte Esterase Mod (Negative) 09/08/20 06:14 Urine WBC (Auto) > 182.0 /HPF (0.0-6.0) H 09/08/20 06:14 Urine RBC (Auto) > 182.0 /HPF (0.0-6.0) 09/08/20 06:14 U Epithel Cells (Auto) 1.0 /HPF (0-13.0) 08/18/20 Unknown Urine Bacteria (Auto) 4+ /HPF (Negative) 09/08/20 06:14 Urine WBC Clumps 3+ /HPF 09/08/20 06:14 Urine Mucus 1+ /HPF 09/08/20 06:14 Ur Yeast w Hyphae 2+ /HPF 09/08/20 06:14 Urine Yeast (Budding) 2+ /HPF 09/08/20 06:14 CSF Appearance Clear 09/13/20 Unknown CSF Color Colorless 09/13/20 Unknown CSF WBC 2 /mm3 (1-10) 09/13/20 Unknown CSF RBC 2 /mm3 (0-0) 09/13/20 Unknown CSF Seg Neutrophils 0 % (0-6) 09/13/20 Unknown CSF Lymphocytes % 1 % (40-80) 09/13/20 Unknown CSF Reactive Lymphs 0 % 09/13/20 Unknown CSF Monocytes % 0 % (15-45) 09/13/20 Unknown CSF Eosinophils % 0 % 09/13/20 Unknown CSF Basophils 0 % 09/13/20 Unknown CSF Pathologist Review C 09/13/20 Unknown CSF Glucose 53 mg/dL 09/13/20 Unknown CSF Total Protein 49 mg/dL 09/13/20 Unknown CSF VDRL Nonreactive (Nonreactive) 09/13/20 Unknown Random Vancomycin 9.8 ug/mL (0-40.0) 08/19/20 19:02 Coronavirus (PCR) Negative (Negative) 09/17/20 Unknown Enterovirus (PCR) Cmmt See scanned result 09/13/20 Unknown HSV I DNA PCR See scanned result 09/13/20 Unknown HSV II DNA PCR See scanned result 09/13/20 Unknown VZV (Qnt-PCR) See scanned result 09/13/20 Unknown Blood Type O POSITIVE 08/27/20 20:44 Antibody Screen Negative 08/27/20 20:44 Crossmatch See Detail 08/27/20 20:44 Montalvo/IV: Voiding Method Indwelling Catheter IV Catheter Type [Right INT / Saline Lock Forearm] IV Catheter Type [Left Forearm INT / Saline Lock ] IV Catheter Type [Left Hand] INT / Saline Lock IV Catheter Type [Left Triple Lumen Cath Internal Jugular] IV Catheter Type [Left] CVL Active Medications - Current Medications Current Medications: Generic Name Dose Route Start Last Admin Trade Name Freq PRN Reason Stop Dose Admin Acetaminophen 650 mg 09/07/20 19:17 09/20/20 22:24 Acetaminophen 325 Mg/10.15 Ml Oral Liqd Unit Dose FEEDTUBE 650 mg Q6H PRN Administration Pain, Mild (1-3) Amlodipine Besylate 10 mg 09/19/20 12:00 09/21/20 10:26 Amlodipine 10 Mg Tab PO 10 mg DAILY BARBARA Administration Lipase/Protease/Amylase 1 each 09/06/20 19:27 Lipase 10,500/Protease 25,000/Amylase 43,750 (Units) Dr Fernandez FEEDTUBE PRN PRN For Clogged Feeding Tube Atorvastatin Calcium 20 mg 09/12/20 22:00 09/20/20 22:24 Atorvastatin 20 Mg Tab PO 20 mg QHS BARBARA Administration Clonidine HCl 0.2 mg 08/31/20 22:00 09/14/20 23:12 Clonidine Tts 0.2 Mg/24 Hr Patch TD 0.2 mg We BARBARA Administration Cyanocobalamin 1,000 mcg 09/12/20 10:00 09/21/20 10:25 Cyanocobalamin (Vit B-12) 1000 Mcg Tab PO 1,000 mcg DAILY BARBARA Administration Folic Acid 1 mg 09/12/20 10:00 09/21/20 10:26 Folic Acid 1 Mg Tab PO 1 mg DAILY BARBARA Administration Hydralazine HCl 5 mg 08/31/20 21:22 09/20/20 05:21 Hydralazine 20 Mg/1 Ml Inj IV 5 mg Q4H PRN Administration Blood Pressure Hydrocortisone Acetate 10 mg 09/07/20 22:00 09/20/20 22:24 Hydrocortisone 10 Mg Tab FEEDTUBE 10 mg Q12HR BARBARA Administration Insulin Glargine 5 units 09/03/20 22:00 09/21/20 10:26 Insulin Glargine 100 Units/Ml SUB-Q 5 units BID BARBARA Administration Insulin Human Lispro 0 unit 09/07/20 12:00 09/21/20 13:19 Insulin Lispro 100 Unit/Ml Vial 3 Ml SUB-Q Not Given Q6H [facility] Protocol Lansoprazole 30 mg 09/08/20 10:00 09/21/20 10:25 Lansoprazole 30 Mg Solutab FEEDTUBE 30 mg QDAY BARBARA Administration Levetiracetam 750 mg 09/07/20 22:00 09/21/20 10:25 Levetiracetam 500 Mg/5 Ml Oral Liqd FEEDTUBE 750 mg BID BARBARA Administration Levothyroxine Sodium 50 mcg 09/08/20 06:00 09/21/20 05:28 Levothyroxine 50 Mcg Tab FEEDTUBE 50 mcg DAILY@0600 [facility] Administration Lisinopril 20 mg 09/14/20 10:00 09/21/20 10:26 Lisinopril 20 Mg Tab PO 20 mg QDAY BARBARA Administration Ondansetron HCl 4 mg 09/07/20 19:17 Ondansetron 4 Mg/2 Ml Inj IV Q8H PRN Nausea Simple Syrup 15 ml 09/06/20 19:27 09/11/20 23:38 Simple Syrup 15 Ml FEEDTUBE 15 ml PRN PRN Administration Hypoglycemia Simple Syrup 30 ml 09/06/20 19:27 Simple Syrup 15 Ml FEEDTUBE PRN PRN Hypoglycemia Sodium Bicarbonate 325 mg 09/06/20 19:27 Sodium Bicarbonate 325 Mg Tab FEEDTUBE PRN PRN For Clogged Feeding Tube Nutrition/Malnutrition Assess - Dietary Evaluation Nutrition/Malnutrition Findings: Nutrition Notes Start: 08/23/20 10:57 Freq: Status: Active Protocol: Document 09/20/20 14:31 EN (Rec: 09/20/20 14:35 EN [id number]) Co-Sign 09/20/20 14:31 MK Nutrition Notes Initial or Follow up Reassessment Current Diagnosis Acute Kidney Injury,Diabetes, Sepsis Other Pertinent Diagnosis Encephalopathy, COVID-19 (+), GIB, UTI, gastric ulcer, gastritis, AMS Current Diet Jevity 1.2 at 50ml/hr Labs/Tests POC BG 140 Pertinent Medications Vitamin B 12 Height 5 ft 5 in Weight 91.9 kg [place] Body Weight (kg) 56.81 BMI 33.7 Weight change and time frame Wt gain likely edema. Weight Status Overweight Subjective/Other Information F/u for TF tolerance and BG labs. Per RN, pt tolerating TF at goal rate. Percent of energy/protein needs met: 92%/83% Burn Absent Trauma Absent GI Symptoms None Current % PO Negligible Minimum of two criteria No Fluid Accumulation Mild (non-severe) #2 Nutrition Diagnosis Increased nutrient needs ( specify in comment below) Diagnosis Progress(for reassessment Continues documentation) #1 Nutrition Diagnosis Inadequate oral intake Diagnosis Progress(for reassessment Continues documentation) Is patient on ventilator? No Is Patient Ambulatory and/or Out of Bed No REE-([place] [facility]-confined to bed) 1662.624 Kcal/Kg value to use for calculation 17 Approximate Energy Requirements Using 1562 kcal/Kg Calculation Used for Recommendations Kcal/kg Additional Notes Protein: 81-97 g 1-1.2 g/kg) Fluid needs 1ml/kcal Nutrition Intervention Change Diet Order: Continue TF Nutrition Support: Jevity 1.2 at 50ml/hr Flush with 100ml q4h Kcal 1,440 Protein (gm) 67 Fluid (mL) 968 Goal #1 Meet at least 80% of kcal and protein needs Anticipated Discharge Needs: TF Follow-Up By: 09/23/20 Additional Comments F/u for TF tolerance, wt and BG labs <ELIZABETH BUENO R - Last Filed: 09/21/20 16:57> Assessment and Plan Assessment and plan: I saw and evaluated the patient. I agree with the findings and the plan of care as documented in the Nurse Practitioner's~note, Hospitalist Physical - Constitutional Vitals: Temp Pulse Resp BP Pulse Ox 98.1 F 79 18 152/73 100 09/21/20 11:04 09/21/20 11:04 09/21/20 11:04 09/21/20 11:04 09/21/20 11:04 HEART Score - HEART Score Troponin: Troponin T 0.075 ng/mL (0.00-0.029) H 08/18/20 18:25 Results - Labs CBC & Chem 7: 09/21/20 05:39 09/21/20 05:39 Labs: Laboratory Last Values WBC 11.7 K/mm3 (4.5-11.0) H 09/21/20 05:39 RBC 3.62 M/mm3 (3.65-5.03) L 09/21/20 05:39 Hgb 10.4 gm/dl (10.1-14.3) 09/21/20 05:39 Hct 31.8 % (30.3-42.9) 09/21/20 05:39 MCV 88 fl (79-97) 09/21/20 05:39 MCH 29 pg (28-32) 09/21/20 05:39 MCHC 33 % (30-34) 09/21/20 05:39 RDW 16.2 % (13.2-15.2) H 09/21/20 05:39 Plt Count 384 K/mm3 (140-440) 09/21/20 05:39 Lymph % (Auto) 20.2 % (13.4-35.0) 09/21/20 05:39 Dane % (Auto) 5.4 % (0.0-7.3) 09/21/20 05:39 Eos % (Auto) 0.5 % (0.0-4.3) 09/21/20 05:39 Baso % (Auto) 0.5 % (0.0-1.8) 09/21/20 05:39 Lymph # (Auto) 2.4 K/mm3 (1.2-5.4) 09/21/20 05:39 Dane # (Auto) 0.6 K/mm3 (0.0-0.8) 09/21/20 05:39 Eos # (Auto) 0.1 K/mm3 (0.0-0.4) 09/21/20 05:39 Baso # (Auto) 0.1 K/mm3 (0.0-0.1) 09/21/20 05:39 Add Manual Diff Complete 08/31/20 06:20 Total Counted 100 08/31/20 06:20 Seg Neutrophils % 73.4 % (40.0-70.0) H 09/21/20 05:39 Seg Neuts % (Manual) 87.0 % (40.0-70.0) H 08/31/20 06:20 Band Neutrophils % 1.0 % 08/31/20 06:20 Lymphocytes % (Manual) 5.0 % (13.4-35.0) L 08/31/20 06:20 Reactive Lymphs % (Man) 1.0 % 08/28/20 10:07 Monocytes % (Manual) 5.0 % (0.0-7.3) 08/31/20 06:20 Metamyelocytes % 2.0 % 08/31/20 06:20 Nucleated RBC % Not Reportable 08/31/20 06:20 Seg Neutrophils # 8.6 K/mm3 (1.8-7.7) H 09/21/20 05:39 Seg Neutrophils # Man 15.1 K/mm3 (1.8-7.7) H 08/31/20 06:20 Band Neutrophils # 0.2 K/mm3 08/31/20 06:20 Lymphocytes # (Manual) 0.9 K/mm3 (1.2-5.4) L 08/31/20 06:20 Abs React Lymphs (Man) 0.0 K/mm3 08/31/20 06:20 Monocytes # (Manual) 0.9 K/mm3 (0.0-0.8) H 08/31/20 06:20 Eosinophils # (Manual) 0.0 K/mm3 (0.0-0.4) 08/31/20 06:20 Basophils # (Manual) 0.0 K/mm3 (0.0-0.1) 08/31/20 06:20 Metamyelocytes # 0.3 K/mm3 08/31/20 06:20 Myelocytes # 0.0 K/mm3 08/31/20 06:20 Promyelocytes # 0.0 K/mm3 08/31/20 06:20 Blast Cells # 0.0 K/mm3 08/31/20 06:20 WBC Morphology Not Reportable 08/31/20 06:20 Hypersegmented Neuts Not Reportable 08/31/20 06:20 Hyposegmented Neuts Not Reportable 08/31/20 06:20 Hypogranular Neuts Not Reportable 08/31/20 06:20 Smudge Cells Not Reportable 08/31/20 06:20 Toxic Granulation Not Reportable 08/31/20 06:20 Toxic Vacuolation Not Reportable 08/31/20 06:20 Dohle Bodies Not Reportable 08/31/20 06:20 Pelger-Huet Anomaly Not Reportable 08/31/20 06:20 Marie Rods Not Reportable 08/31/20 06:20 Platelet Estimate Consistent w auto 08/31/20 06:20 Clumped Platelets Not Reportable 08/31/20 06:20 Plt Clumps, EDTA Not Reportable 08/31/20 06:20 Large Platelets Not Reportable 08/31/20 06:20 Giant Platelets Not Reportable 08/31/20 06:20 Platelet Satelliting Not Reportable 08/31/20 06:20 Plt Morphology Comment Not Reportable 08/31/20 06:20 RBC Morphology Not Reportable 08/31/20 06:20 Dimorphic RBCs Not Reportable 08/31/20 06:20 Polychromasia Not Reportable 08/31/20 06:20 Hypochromasia Not Reportable 08/31/20 06:20 Poikilocytosis Not Reportable 08/31/20 06:20 Anisocytosis 1+ 08/31/20 06:20 Microcytosis Not Reportable 08/31/20 06:20 Macrocytosis Not Reportable 08/31/20 06:20 Spherocytes Not Reportable 08/31/20 06:20 Pappenheimer Bodies Not Reportable 08/31/20 06:20 Sickle Cells Not Reportable 08/31/20 06:20 Target Cells Not Reportable 08/31/20 06:20 Tear Drop Cells Not Reportable 08/31/20 06:20 Ovalocytes Not Reportable 08/31/20 06:20 Helmet Cells Not Reportable 08/31/20 06:20 [place] Bodies Not Reportable 08/31/20 06:20 [place] Rings Not Reportable 08/31/20 06:20 Darren Cells Not Reportable 08/31/20 06:20 Bite Cells Not Reportable 08/31/20 06:20 Crenated Cell Not Reportable 08/31/20 06:20 Elliptocytes Not Reportable 08/31/20 06:20 Acanthocytes (Spur) Not Reportable 08/31/20 06:20 Rouleaux Not Reportable 08/31/20 06:20 Hemoglobin C Crystals Not Reportable 08/31/20 06:20 Schistocytes Not Reportable 08/31/20 06:20 Malaria parasites Not Reportable 08/31/20 06:20 Payam Bodies Not Reportable 08/31/20 06:20 Hem Pathologist Commnt No 08/31/20 06:20 PT 15.7 Sec. (12.2-14.9) H 09/09/20 09:44 INR 1.25 (0.87-1.13) H 09/09/20 09:44 APTT 45.2 Sec. (24.2-36.6) H 09/09/20 09:44 D-Dimer 2409.74 ng/mlDDU (0-234) H 08/18/20 Unknown Sodium 136 mmol/L (137-145) L 09/21/20 05:39 Potassium 3.2 mmol/L (3.6-5.0) L 09/21/20 05:39 Chloride 96.5 mmol/L (98-107) L 09/21/20 05:39 Carbon Dioxide 37 mmol/L (22-30) H D 09/21/20 05:39 Anion Gap 6 mmol/L 09/21/20 05:39 BUN 11 mg/dL (7-17) 09/21/20 05:39 Creatinine 0.3 mg/dL (0.6-1.2) L 09/21/20 05:39 Estimated GFR > 60 ml/min 09/21/20 05:39 BUN/Creatinine Ratio 37 % 09/21/20 05:39 Glucose 154 mg/dL (65-100) H 09/21/20 05:39 POC Glucose 130 mg/dL (70-105) H 09/21/20 11:03 Lactic Acid 1.00 mmol/L (0.7-2.0) 08/18/20 18:25 Calcium 7.9 mg/dL (8.4-10.2) L 09/21/20 05:39 Phosphorus 5.50 mg/dL (2.5-4.5) H 09/08/20 04:52 Magnesium 2.10 mg/dL (1.7-2.3) 09/08/20 04:52 Ferritin 1950.0 ng/mL (10.0-200.0) H 08/18/20 15:35 Total Bilirubin 0.50 mg/dL (0.1-1.2) 09/04/20 05:57 AST 11 units/L (5-40) 09/04/20 05:57 ALT 8 units/L (7-56) 09/04/20 05:57 Alkaline Phosphatase 59 units/L (35-129) 09/04/20 05:57 Ammonia 32.0 umol/L (25-60) 08/25/20 09:06 Lactate Dehydrogenase 228 units/L (91-180) H 08/18/20 15:35 Total Creatine Kinase 164 units/L (30-135) H 08/22/20 19:44 Troponin T 0.075 ng/mL (0.00-0.029) H 08/18/20 18:25 C-Reactive Protein 35.60 mg/dL (0.00-1.30) H 08/18/20 15:35 Total Protein 4.2 g/dL (6.3-8.2) L 09/04/20 05:57 Albumin 2.5 g/dL (3.9-5) L 09/04/20 05:57 Albumin/Globulin Ratio 1.5 % 09/04/20 05:57 Triglycerides 70 mg/dL (2-149) 08/31/20 06:20 Cholesterol 79 mg/dL (50-199) 08/18/20 18:25 LDL Cholesterol Direct 42 mg/dL (50-130) L 08/18/20 18:25 HDL Cholesterol 23 mg/dL (40-59) L 08/18/20 18:25 Cholesterol/HDL Ratio 3.43 % 08/18/20 18:25 Vitamin B12 721.0 pg/mL (211-911) 08/25/20 09:06 Folate 8.34 ng/mL (7.3-26.0) 08/25/20 09:06 Procalcitonin 4.00 ng/mL (<0.15) 08/18/20 15:35 TSH 0.056 mlU/mL (0.270-4.200) L 08/24/20 17:02 Free T4 1.59 ng/dL (0.76-1.46) H 08/26/20 10:22 Free T3 Index 1.2 pg/mL (2.3-4.2) L 08/26/20 10:22 Total Cortisol 37.6 mcg/dL () 09/02/20 05:30 Urine Color Yellow (Yellow) 09/08/20 06:14 Urine Turbidity Turbid (Clear) 09/08/20 06:14 Urine pH 5.0 (5.0-7.0) 09/08/20 06:14 Ur Specific [place] 1.009 (1.003-1.030) 09/08/20 06:14 Urine Protein 100 mg/dl mg/dL (Negative) 09/08/20 06:14 Urine Glucose (UA) Neg mg/dL (Negative) 09/08/20 06:14 Urine Ketones Neg mg/dL (Negative) 09/08/20 06:14 Urine Blood Lg (Negative) 09/08/20 06:14 Urine Nitrite Neg (Negative) 09/08/20 06:14 Urine Bilirubin Neg (Negative) 09/08/20 06:14 Urine Urobilinogen < 2.0 mg/dL (<2.0) 09/08/20 06:14 Ur Leukocyte Esterase Mod (Negative) 09/08/20 06:14 Urine WBC (Auto) > 182.0 /HPF (0.0-6.0) H 09/08/20 06:14 Urine RBC (Auto) > 182.0 /HPF (0.0-6.0) 09/08/20 06:14 U Epithel Cells (Auto) 1.0 /HPF (0-13.0) 08/18/20 Unknown Urine Bacteria (Auto) 4+ /HPF (Negative) 09/08/20 06:14 Urine WBC Clumps 3+ /HPF 09/08/20 06:14 Urine Mucus 1+ /HPF 09/08/20 06:14 Ur Yeast w Hyphae 2+ /HPF 09/08/20 06:14 Urine Yeast (Budding) 2+ /HPF 09/08/20 06:14 CSF Appearance Clear 09/13/20 Unknown CSF Color Colorless 09/13/20 Unknown CSF WBC 2 /mm3 (1-10) 09/13/20 Unknown CSF RBC 2 /mm3 (0-0) 09/13/20 Unknown CSF Seg Neutrophils 0 % (0-6) 09/13/20 Unknown CSF Lymphocytes % 1 % (40-80) 09/13/20 Unknown CSF Reactive Lymphs 0 % 09/13/20 Unknown CSF Monocytes % 0 % (15-45) 09/13/20 Unknown CSF Eosinophils % 0 % 09/13/20 Unknown CSF Basophils 0 % 09/13/20 Unknown CSF Pathologist Review C 09/13/20 Unknown CSF Glucose 53 mg/dL 09/13/20 Unknown CSF Total Protein 49 mg/dL 09/13/20 Unknown CSF VDRL Nonreactive (Nonreactive) 09/13/20 Unknown Random Vancomycin 9.8 ug/mL (0-40.0) 08/19/20 19:02 Coronavirus (PCR) Negative (Negative) 09/17/20 Unknown Enterovirus (PCR) Cmmt See scanned result 09/13/20 Unknown HSV I DNA PCR See scanned result 09/13/20 Unknown HSV II DNA PCR See scanned result 09/13/20 Unknown VZV (Qnt-PCR) See scanned result 09/13/20 Unknown Blood Type O POSITIVE 08/27/20 20:44 Antibody Screen Negative 08/27/20 20:44 Crossmatch See Detail 08/27/20 20:44 [place]/IV: Voiding Method Indwelling Catheter IV Catheter Type [Right INT / Saline Lock Forearm] IV Catheter Type [Left Forearm INT / Saline Lock ] IV Catheter Type [Left Hand] INT / Saline Lock IV Catheter Type [Left Triple Lumen Cath Internal Jugular] IV Catheter Type [Left] CVL Active Medications - Current Medications Current Medications: Generic Name Dose Route Start Last Admin Trade Name Freq PRN Reason Stop Dose Admin Acetaminophen 650 mg 09/07/20 19:17 09/20/20 22:24 Acetaminophen 325 Mg/10.15 Ml Oral Liqd Unit Dose FEEDTUBE 650 mg Q6H PRN Administration Pain, Mild (1-3) Amlodipine Besylate 10 mg 09/19/20 12:00 09/21/20 10:26 Amlodipine 10 Mg Tab PO 10 mg DAILY BARBARA Administration Lipase/Protease/Amylase 1 each 09/06/20 19:27 Lipase 10,500/Protease 25,000/Amylase 43,750 (Units) Dr Fernandez FEEDTUBE PRN PRN For Clogged Feeding Tube Atorvastatin Calcium 20 mg 09/12/20 22:00 09/20/20 22:24 Atorvastatin 20 Mg Tab PO 20 mg QHS BARBARA Administration Clonidine HCl 0.2 mg 08/31/20 22:00 09/14/20 23:12 Clonidine Tts 0.2 Mg/24 Hr Patch TD 0.2 mg We BARBARA Administration Cyanocobalamin 1,000 mcg 09/12/20 10:00 09/21/20 10:25 Cyanocobalamin (Vit B-12) 1000 Mcg Tab PO 1,000 mcg DAILY BARBARA Administration Folic Acid 1 mg 09/12/20 10:00 09/21/20 10:26 Folic Acid 1 Mg Tab PO 1 mg DAILY BARBARA Administration Hydralazine HCl 5 mg 08/31/20 21:22 09/20/20 05:21 Hydralazine 20 Mg/1 Ml Inj IV 5 mg Q4H PRN Administration Blood Pressure Hydrocortisone Acetate 10 mg 09/07/20 22:00 09/20/20 22:24 Hydrocortisone 10 Mg Tab FEEDTUBE 10 mg Q12HR BARBARA Administration Insulin Glargine 5 units 09/03/20 22:00 09/21/20 10:26 Insulin Glargine 100 Units/Ml SUB-Q 5 units BID BARBARA Administration Insulin Human Lispro 0 unit 09/07/20 12:00 09/21/20 13:19 Insulin Lispro 100 Unit/Ml Vial 3 Ml SUB-Q Not Given Q6H [facility] Protocol Lansoprazole 30 mg 09/08/20 10:00 09/21/20 10:25 Lansoprazole 30 Mg Solutab FEEDTUBE 30 mg QDAY BARBARA Administration Levetiracetam 750 mg 09/07/20 22:00 09/21/20 10:25 Levetiracetam 500 Mg/5 Ml Oral Liqd FEEDTUBE 750 mg BID BARBARA Administration Levothyroxine Sodium 50 mcg 09/08/20 06:00 09/21/20 05:28 Levothyroxine 50 Mcg Tab FEEDTUBE 50 mcg DAILY@0600 BARBARA Administration Lisinopril 20 mg 09/14/20 10:00 09/21/20 10:26 Lisinopril 20 Mg Tab PO 20 mg QDAY BARBARA Administration Ondansetron HCl 4 mg 09/07/20 19:17 Ondansetron 4 Mg/2 Ml Inj IV Q8H PRN Nausea Potassium Chloride 40 meq 09/21/20 17:26 Potassium Chloride Er 20 Meq Tab PO 09/21/20 17:27 ONCE ONE Simple Syrup 15 ml 09/06/20 19:27 09/11/20 23:38 Simple Syrup 15 Ml FEEDTUBE 15 ml PRN PRN Administration Hypoglycemia Simple Syrup 30 ml 09/06/20 19:27 Simple Syrup 15 Ml FEEDTUBE PRN PRN Hypoglycemia Sodium Bicarbonate 325 mg 09/06/20 19:27 Sodium Bicarbonate 325 Mg Tab FEEDTUBE PRN PRN For Clogged Feeding Tube Nutrition/Malnutrition Assess - Dietary Evaluation Nutrition/Malnutrition Findings: Nutrition Notes Start: 08/23/20 10:57 Freq: Status: Active Protocol: Document 09/20/20 14:31 EN (Rec: 09/20/20 14:35 EN [id number]) Co-Sign 09/20/20 14:31 MK Nutrition Notes Initial or Follow up Reassessment Current Diagnosis Acute Kidney Injury,Diabetes, Sepsis Other Pertinent Diagnosis Encephalopathy, COVID-19 (+), GIB, UTI, gastric ulcer, gastritis, AMS Current Diet Jevity 1.2 at 50ml/hr Labs/Tests POC BG 140 Pertinent Medications Vitamin B 12 Height 5 ft 5 in Weight 91.9 kg [place] Body Weight (kg) 56.81 BMI 33.7 Weight change and time frame Wt gain likely edema. Weight Status Overweight Subjective/Other Information F/u for TF tolerance and BG labs. Per RN, pt tolerating TF at goal rate. Percent of energy/protein needs met: 92%/83% Burn Absent Trauma Absent GI Symptoms None Current % PO Negligible Minimum of two criteria No Fluid Accumulation Mild (non-severe) #2 Nutrition Diagnosis Increased nutrient needs ( specify in comment below) Diagnosis Progress(for reassessment Continues documentation) #1 Nutrition Diagnosis Inadequate oral intake Diagnosis Progress(for reassessment Continues documentation) Is patient on ventilator? No Is Patient Ambulatory and/or Out of Bed No [facility] 1662.624 Kcal/Kg value to use for calculation 17 Approximate Energy Requirements Using 1562 kcal/Kg Calculation Used for Recommendations Kcal/kg Additional Notes Protein: 81-97 g 1-1.2 g/kg) Fluid needs 1ml/kcal Nutrition Intervention Change Diet Order: Continue TF Nutrition Support: Jevity 1.2 at 50ml/hr Flush with 100ml q4h Kcal 1,440 Protein (gm) 67 Fluid (mL) 968 Goal #1 Meet at least 80% of kcal and protein needs Anticipated Discharge Needs: TF Follow-Up By: 09/23/20 Additional Comments F/u for TF tolerance, wt and BG labs
[2020-09-21] MEDS ORDERED: POTASSIUM CHLORIDE ER 20 MEQ TAB PO ONE (17:26)
[2020-09-21] MEDS: cloNIDine TTS 0.2 MG/24 HR PATCH TD SCH (22:22)
[2020-09-21] MEDS: ACETAMINOPHEN 325 MG/10.15 ML ORAL LIQD UNIT DOSE FEEDTUBE PRN (22:23)
[2020-09-21] MEDS: HYDROCORTISONE 10 MG TAB FEEDTUBE SCH (22:24)
[2020-09-22] MEDS: INSULIN LISPRO 100 UNIT/ML VIAL 3 mL SUB-Q SCH ×3 (00:44→11:56)
[2020-09-22] MEDS: LEVOTHYROXINE 50 MCG TAB FEEDTUBE SCH (05:44)
[2020-09-22] MEDS: HYDROCORTISONE 10 MG TAB FEEDTUBE SCH ×2 (09:16→18:09)
[2020-09-22] MEDS: amLODIPine 10 MG TAB PO SCH (09:16)
[2020-09-22] MEDS: LISINOPRIL 20 MG TAB PO SCH (09:16)
[2020-09-22] MEDS: LANSOPRAZOLE 30 MG SOLUTAB FEEDTUBE SCH (09:16)
[2020-09-22] MEDS: CYANOCOBALAMIN (VIT B-12) 1000 MCG TAB PO SCH (09:16)
[2020-09-22] MEDS: FOLIC ACID 1 MG TAB PO SCH (09:16)
[2020-09-22] MEDS: levETIRAcetam 500 MG/5 ML ORAL LIQD FEEDTUBE SCH ×2 (09:16→18:09)
[2020-09-22] MEDS: INSULIN GLARGINE 100 UNITS/ML SUB-Q SCH ×2 (09:32→11:39)
[2020-09-22 17:42] VITALS: BP 127/70
== END 2020-09-22 19:40 | disposition home health service (06) | DRG 871 ==
LOC: ED 12:28 → CC1 17:55 → OBSVTOIN 08-19 12:00 → 4A 08-19 12:49 → 3A 08-19 23:20 → 4A 09-17 19:58
PROVIDERS: ADMIT Internal Medicine; ATTEND Internal Medicine
PROC: 30233N1 Transfusion of Nonautologous Red Blood Cells into Peripheral Vein, Percutaneous Approach (ICD-10-PCS; 2020-08-28)
PROC: 0DB78ZX Excision of Stomach, Pylorus, Via Natural or Artificial Opening Endoscopic, Diagnostic (ICD-10-PCS; 2020-09-02)
PROC: 0DH64UZ Insertion of Feeding Device into Stomach, Percutaneous Endoscopic Approach (ICD-10-PCS; principal; 2020-09-06)
PROC: 009U3ZX Drainage of Spinal Canal, Percutaneous Approach, Diagnostic (ICD-10-PCS; 2020-09-13)
PROC: B01B1ZZ Fluoroscopy of Spinal Cord using Low Osmolar Contrast (ICD-10-PCS; 2020-09-13)
DX: A41.9 Sepsis, unspecified organism (principal); G92 Toxic encephalopathy; N17.0 Acute kidney failure with tubular necrosis; J96.01 Acute respiratory failure with hypoxia; E23.0 Hypopituitarism; U07.1 COVID-19; N39.0 Urinary tract infection, site not specified; E87.0 Hyperosmolality and hypernatremia; E27.1 Primary adrenocortical insufficiency; E03.9 Hypothyroidism, unspecified; E11.9 Type 2 diabetes mellitus without complications; D32.9 Benign neoplasm of meninges, unspecified; K29.00 Acute gastritis without bleeding; K66.0 Peritoneal adhesions (postprocedural) (postinfection); E87.6 Hypokalemia; M19.90 Unspecified osteoarthritis, unspecified site; R13.12 Dysphagia, oropharyngeal phase; E87.8 Other disorders of electrolyte and fluid balance, not elsewhere classified; G40.909 Epilepsy, unspecified, not intractable, without status epilepticus; I10 Essential (primary) hypertension; E78.5 Hyperlipidemia, unspecified; Z86.19 Personal history of other infectious and parasitic diseases; Z82.49 Family history of ischemic heart disease and other diseases of the circulatory system; Z86.39 Personal history of other endocrine, nutritional and metabolic disease; Z79.899 Other long term (current) drug therapy
CPT/HCPCS: 36415; 62270; 62328; 70450; 70553; 71045; 74176; 76770; 80048; 80053; 80061; 80202; 81001; 82140; 82533; 82550; 82607; 82728; 82747; 82947; 82962; 83615; 83735; 84100; 84132; 84145; 84160; 84439; 84443; 84478; 84481; 84484; 85007; 85014; 85018; 85025; 85027; 85049; 85379; 85610; 85730; 86140; 86592; 86850; 86900; 86901; 86920; 87040; 87086; 87116; 87498; 87799; 88305; 88342; 89051; 93005; 94760; 96365; G0378; A9270-GY; A9577; C9113; J0360; J0690; J0692; J1100; J1650; J1720; J1815; J1953; J2704; J2710; J3370; J3480; J7030; J7040; J7050; J7120; P9016; U0003